=== PATIENT | female | born 1940 | race Caucasian/White ===

== ENCOUNTER → 2016-03-24 | Outpatient (CLI) | payer BC ==
[~2016-03-24] MED LIST: ALBUAER2 INH; ANAS1TAB19 PO; ASPEC81 PO; ATOR10TA88 PO; AZPOPS OPR; BUPR200T2 PO; CHOL100027 PO; FERR325T PO; FLUT27.5 NAE; INSDGIPEN SC; LEVO25TA5 PO; PANT40TA PO; PRDUNK PO; SYMIN/8045 INH; ZAFI1TAB10 PO
[2016-03-24 13:30] LABS: URINE APPEARANCE CLEAR (CLEAR); URINE BILIRUBIN NEG (NEG); URINE COLOR DK YELLOW; URINE EPITHELIAL CELL AUTO >30 /lpf (0-5); URINE NITRITE NEG (NEG); URINE PH 5.5 (4.5-7.5); URINE SPECIFIC GRAVITY 1.018 (1.000-1.030); UROBILINOGEN NEG (NEG)
[2016-03-24 13:34] LABS: MANUAL MICROSCOPIC REQUIRED? NO; REVIEW REQ? YES
[2016-03-24 13:49] LABS: FERRITIN 39.8 ng/ml (8.0-388.0)
[2016-03-24 13:54] LABS: URINE PATH CASTS 0-3 GRANULAR CASTS /lpf (0)
[2016-03-24 14:27] LABS: ESTIMATED AVERAGE GLUCOSE 157 mg/dl; HA1C FLAG Normal (Normal)
[2016-03-24 14:29] LABS: URINE PROTIEN/CREAT RATIO 1.3 (0-0.2); URINE TOTAL PROTEIN 205.8 mg/dl (0-11.9)
[2016-03-25 09:35] LABS: C-REACTIVE PROT HIGHSEN 9.6 MG/L
--- NOTE | 2016-04-01 07:51 | CODING QUERY MEDICAL NECESSITY ---
SUPPORTING DIAGNOSIS NEEDED Dr. Tovar, A supporting diagnosis is required for the test/procedure performed on this patient in order for us to be reimbursed by the patient's insurance. Please provide a supporting diagnosis for the following test/procedure listed below next to the test name along with your signature. *If there is no additional diagnosis for this patient that would support the following test/procedure please document that below next to the test/procedure. Test(s)/Procedure(s) that require a supporting diagnosis: * ([id number]) C-REACTIVE PROTEIN DIAGNOSIS: DATE OF SERVICE: 03/24/16 Provider Signature: Date: Thank you Abhinav Brown [facility] Information Management Once completed, please kindly fax back to [phone] For questions please call [phone]
== END | disposition home or self-care (01) ==
LOC: C.LABSPEC 09:29
PROVIDERS: ATTEND Internal Medicine Nephrology
DX: R06.09 Other forms of dyspnea (principal); R53.83 Other fatigue; R70.0 Elevated erythrocyte sedimentation rate; R79.82 Elevated C-reactive protein (CRP); N18.4 Chronic kidney disease, stage 4 (severe); E11.9 Type 2 diabetes mellitus without complications; I10 Essential (primary) hypertension; E87.1 Hypo-osmolality and hyponatremia; R80.9 Proteinuria, unspecified; N28.81 Hypertrophy of kidney; Z12.31 Encounter for screening mammogram for malignant neoplasm of breast; Z85.3 Personal history of malignant neoplasm of breast; M06.9 Rheumatoid arthritis, unspecified

== ENCOUNTER → 2016-03-24 | Outpatient (CLI) | payer BC ==
--- NOTE | 2016-03-24 16:17 | MAMMOGRAPHY REPORT ---
BILATERAL DIGITAL DIAGNOSTIC MAMMOGRAM TOMOSYNTHESIS WITH CAD: 03/24/2016 CLINICAL HISTORY: Asymptomatic. Personal history of breast cancer. TECHNIQUE: Bilateral breast tomosynthesis in addition to standard 2D mammography was performed. Spo t magnification views of the left lumpectomy site were also obtained. Current study was also evalua alberto with a Computer Aided Detection (CAD) system. COMPARISON: Comparison is made to exams dated: 03/20/2015 mammogram, 02/28/2014 mammogram, 08/25/2013 ultrasound, 02/17/2013 mammogram, and 10/14/2011 ultrasound biopsy - [facility]. BREAST COMPOSITION: There are scattered areas of fibroglandular density in both breasts. FINDINGS: The hub of a Mediport catheter projects over the far superior and posterior right breast o n the MLO view. A stable ribbon shaped metallic biopsy marker in the upper outer anterior right juan ast. No new suspicious mass, architectural distortion or cluster of microcalcifications is seen wit hin the right breast. There is expected architectural distortion, surgical clips and density in the 12:00 to 1:00 left juan ast, at the site of prior lumpectomy. There are increasing coarse dystrophic calcifications in the area of distortion and density, compatible with dystrophic calcification. There are also vascular c alcifications within the left breast. No new suspicious mass, unexpected architectural distortion o r cluster of new suspicious microcalcifications are identified within the left breast. IMPRESSION: ACR BI-RADS CATEGORY 2: BENIGN There is no mammographic evidence of malignancy. Bilateral mammography is recommended in one year, and would recommend remaining a diagnostic patient for possible additional spot magnification views of the lumpectomy bed, given the number of microcalcifications in that area. The patient has been v erbally notified of the results. Approximately 10% of breast cancers are not detected with mammography. A negative mammographic repor t should not delay biopsy if a clinically suggestive mass is present. Shell Beebe M.D. ay/:03/24/2016 13:24:46 Multi Skilled Operator: Adry London, [facility] letter sent: Normal 1/2 BI-RADS Code: ACR BI-RADS Category 2: Benign
== END | disposition home or self-care (01) ==
LOC: C.MAMM 10:15
PROVIDERS: ATTEND Internal Medicine Hematology & Oncology
DX: Z12.31 Encounter for screening mammogram for malignant neoplasm of breast (principal); Z85.3 Personal history of malignant neoplasm of breast

== ENCOUNTER → 2016-10-09 | Outpatient (CLI) | payer BC ==
[2016-10-09 13:09] LABS: HEMATOCRIT 35.6 % (37-47); MEAN CORPUSCULAR HEMOGLOBIN 31.3 pg (25-34); MEAN CORPUSCULAR HGB CONC 32.6 g/dl (32-36); MEAN PLATELET VOLUME 9.9 fL (7.4-10.4); PLATELET COUNT 223 K/uL (130-400); RED BLOOD COUNT 3.71 M/uL (4.2-5.4); URINE APPEARANCE CLEAR (CLEAR); URINE BILIRUBIN NEG (NEG); URINE COLOR DK YELLOW; URINE EPITHELIAL CELL AUTO >30 /lpf (0-5); URINE NITRITE NEG (NEG); URINE PH 5.5 (4.5-7.5); URINE SPECIFIC GRAVITY 1.022 (1.000-1.030); UROBILINOGEN NEG (NEG); WHITE BLOOD COUNT 7.35 K/uL (4.8-10.8)
[2016-10-09 13:13] LABS: MANUAL MICROSCOPIC REQUIRED? NO; REVIEW REQ? YES
[2016-10-09 13:45] LABS: BLOOD UREA NITROGEN 38 mg/dl (7-18); BUN/CREATININE RATIO 15.8 (10-20); CALCIUM 8.9 mg/dl (8.5-10.1); CARBON DIOXIDE 21 mmol/L (21-32); CHLORIDE 107 mmol/L (98-107); GLUCOSE 206 mg/dl (70-99); POTASSIUM 4.7 mmol/L (3.5-5.1); SODIUM 138 mmol/L (136-145)
[2016-10-09 13:46] LABS: PHOSPHORUS 3.6 mg/dl (2.5-4.9)
[2016-10-09 13:56] LABS: URINE PROTIEN/CREAT RATIO 1.5 (0-0.2); URINE TOTAL PROTEIN 261.4 mg/dl (0-11.9)
[2016-10-09 14:13] LABS: URINE PATH CASTS 1-5 GRANULAR CASTS /lpf (0)
== END | disposition home or self-care (01) ==
LOC: C.LAB 16:32
PROVIDERS: ATTEND Internal Medicine Nephrology
DX: E11.9 Type 2 diabetes mellitus without complications (principal); I10 Essential (primary) hypertension; N18.4 Chronic kidney disease, stage 4 (severe); E87.1 Hypo-osmolality and hyponatremia; N25.81 Secondary hyperparathyroidism of renal origin; R80.9 Proteinuria, unspecified

== ENCOUNTER → 2016-12-28 | Outpatient (CLI) | payer BC ==
[~2016-12-28] MED LIST changes: +ATOR10TA82 PO; -ATOR10TA88 PO; +FERR1TAB62 PO; -FERR325T PO
== END | disposition home or self-care (01) ==
LOC: C.RDSM 11:30
PROVIDERS: ATTEND Physical Medicine & Rehabilitation Sports Medicine
DX: M17.11 Unilateral primary osteoarthritis, right knee (principal); M25.551 Pain in right hip; M54.6 Pain in thoracic spine

== ENCOUNTER → 2017-04-01 | Outpatient (CLI) | payer BC ==
--- NOTE | 2017-04-05 07:40 | MAMMOGRAPHY REPORT ---
BILATERAL DIGITAL SCREENING MAMMOGRAM TOMOSYNTHESIS WITH CAD: 04/01/2017 CLINICAL HISTORY: Asymptomatic. Personal history of breast cancer. TECHNIQUE: Breast tomosynthesis in addition to standard 2D mammography was performed. Current study was also evaluated with a Computer Aided Detection (CAD) system. COMPARISON: Comparison is made to exams dated: 03/24/2016 mammogram, 03/20/2015 mammogram, 09/05/2014 ma mmogram, 02/28/2014 mammogram, 08/25/2013 ultrasound, and 08/25/2013 mammogram - [facility]. BREAST COMPOSITION: There are scattered areas of fibroglandular density in both breasts. FINDINGS: No suspicious masses, calcifications, or areas of architectural distortion are noted in ei ther breast. There has been no significant interval change compared to prior exams. There are stable postoperative changes in the left upper outer quadrant from prior lumpectomy, including stable archi tectural distortion, density, and surgical clip at the lumpectomy bed. Coarse benign dystrophic calc ifications are again seen at the lumpectomy bed. Diffuse left breast skin thickening is not signific antly changed. A biopsy marker clip is again noted within the right upper outer quadrant. IMPRESSION: ACR BI-RADS CATEGORY 2: BENIGN There is no mammographic evidence of malignancy. A 1 year screening mammogram is recommended. The pa tient will receive written notification of the results. Approximately 10% of breast cancers are not detected with mammography. A negative mammographic report should not delay biopsy if a clinically suggestive mass is present. Angelia Belcher M.D. /:04/01/2017 15:41:11 Messenger Copy: Adry London, [facility] letter sent: Normal 1/2 BI-RADS Code: ACR BI-RADS Category 2: Benign
== END | disposition home or self-care (01) ==
LOC: C.MAMM 13:18
PROVIDERS: ATTEND Internal Medicine Hematology & Oncology
DX: Z12.31 Encounter for screening mammogram for malignant neoplasm of breast (principal)

== ENCOUNTER → 2017-04-20 | Outpatient (CLI) | payer BC ==
[2017-04-20 17:32] LABS: HEMOGLOBIN 12.2 g/dL (12.0-16.0); MEAN CELL VOLUME 96.1 fL (80-100); MEAN CORPUSCULAR HEMOGLOBIN 31.7 pg (25-34); PLATELET COUNT 250 K/uL (130-400); RED CELL DISTRIBUTION WIDTH CV 12.4 % (11.5-14.5); RED CELL DISTRIBUTION WIDTH SD 43.5 fL (36.4-46.3); WHITE BLOOD COUNT 7.95 K/uL (4.8-10.8)
[2017-04-20 17:43] LABS: ALBUMIN 3.4 gm/dl (3.4-5.0); BLOOD UREA NITROGEN 50 mg/dl (7-18); CALCIUM 9.5 mg/dl (8.5-10.1); CARBON DIOXIDE 23 mmol/L (21-32); GLUCOSE 132 mg/dl (70-99); POTASSIUM 4.9 mmol/L (3.5-5.1); SODIUM 134 mmol/L (136-145)
[2017-04-20 17:44] LABS: PHOSPHORUS 3.9 mg/dl (2.5-4.9)
== END | disposition home or self-care (01) ==
LOC: C.LABBFT 13:02
PROVIDERS: ATTEND Internal Medicine Nephrology
DX: I12.9 Hypertensive chronic kidney disease with stage 1 through stage 4 chronic kidney disease, or unspecified chronic kidney disease (principal); N18.4 Chronic kidney disease, stage 4 (severe); N25.81 Secondary hyperparathyroidism of renal origin; R80.9 Proteinuria, unspecified

== ENCOUNTER 2017-06-06 08:36 | Emergency (ER) | payer BC ==
[~2017-06-06] VITALS: Ht 165.1 cm; Wt 91.9 kg
[2017-06-06 08:49] VITALS: TEMP 36.4; Ht 165.1 cm; Wt 91.9 kg
[2017-06-06] MEDS ORDERED: HYDR-4313 PO (09:11)
[2017-06-06] MEDS ORDERED: MELO7.5T5 PO (09:11)
--- NOTE | 2017-06-06 10:01 | EMERGENCY ROOM VISIT NOTE ---
ED Visit Note First contact with patient: 08:59 The patient was seen and examined with Francis Mishra PA-C. I agree with the history, physical and findings. Please see the note for disposition and details.
[2017-06-06] MEDS ORDERED: OXYC-57 PO (10:07)
[2017-06-06 10:35] VITALS: BP 180/75; PULSE 80; O2SAT 100
[2017-06-18] MEDS ORDERED: PRD/1 PO (11:50)
[2017-06-18] MEDS ORDERED: CALC500C70 PO (11:50)
[2017-06-18] MEDS ORDERED: BRIN1SUS OPR (11:50)
[2017-06-18] MEDS ORDERED: BRIM0.15 OP (11:50)
[2017-06-18] MEDS ORDERED: CHOLTAB11 PO (11:50)
[2017-06-18] MEDS ORDERED: MULT-506 PO (11:50)
[2017-06-18] MEDS ORDERED: VNTHFA/IN INH (11:50)
[2017-06-18] MEDS ORDERED: WLL75 PO (11:50)
[2017-06-18] MEDS ORDERED: ASPI81TA28 PO (11:50)
--- NOTE | 2017-06-29 17:33 | EMERGENCY ROOM VISIT NOTE ---
History First contact with patient: 08:59 Chief Complaint: LEG PAIN,LEG INJURY Stated Complaint: PAIN IN LEFT LEG History of Present Illness The patient is a 77 year old white female who presents to the Emergency Room with complaints of left leg pain that is radiating from her back. Symptoms started Wednesday night. She denies any specific injury. She was seen by her PCP and had an ultrasound obtained to rule out DVT. This was negative. She does have a history of DVT in the same leg. She denies any current swelling. She notes she did have some difficulty getting her shoe on this morning. She does not take any blood thinners. She does have a history of chronic low back pain. She has received cortisone injections in her back previously. She denies lifting anything heavy or moving it in usual fashion. No difficulty with bowel or bladder control. No abdominal pain. No symptoms in the right leg. No true numbness. She does have some tingling along with her pain. Review of Systems REVIEW OF SYSTEM: HEENT: No dizziness, visual problems, hearing loss, or tinnitus. There is no difficulty swallowing and no oral lesions are present. LYMPH: No adenopathy. PULMONARY: No cough, shortness of breath, sputum production or hemoptysis. CARDIOVASCULAR: No chest pain, palpitations, shortness of breath or peripheral edema. GASTROINTESTINAL: No diarrhea, constipation, nausea, vomiting, or abdominal pain. GENITOURINARY: No dysuria, frequency, urgency or nocturia. NEUROLOGIC: No weakness, muscle tenderness, epilepsy or history of neurological problems. MUSCULOSKELETAL: No history of joint tenderness/swelling. Positive history of arthritis and arthralgias. SKIN: No rashes or lesions. PSYCHIATRIC: No history of depression or mental illness. ENDOCRINE: No history of thyroid disorders, or abnormal hair growth. Past Medical/Surgical History Medical Problems: (1) Acute osteomyelitis (2) ACUTE RENAL FAILURE, UNSPECIFIED (3) ATTEN TO ILEOSTOMY (4) CHRONIC KIDNEY DISEASE, STAGE IV (SEVERE) (5) Deep venous thrombosis (6) DIAB FELISHA WO COMPL, TYPE II OR UNSPEC TYPE, NOT UNCNTRLD (7) FAT NECROSIS OF BREAST (8) MALIGN NEOPL BREAST NOS (9) METHICILLIN RESISTANT STAPHYLOCOCCUS AUREUS ELSEWHERE/NOS (10) PNEUMONIA, ORGANISM NOS (11) Protein S deficiency (12) PSEUDOMONAS INFECT NOS Family History Cancer Diabetes mellitus Gallbladder disease Heart disease Hypertension Social History Smoking Status: Former Smoker Smokeless Tobacco Use: No Alcohol Use: none Drug Use: none Marital Status: Housing Status: lives with significant other Occupation Status: retired Current/Historical Medications Scheduled Anastrozole (Arimidex), 1 MG PO QPM Aspirin (Aspirin Ec), 81 MG PO QPM Brimonidine Tartrate Oph (Alphagan P Oph), 1 DROP OP BID Brinzolamide Oph (Azopt Oph), 1 DROP OPR BID Bupropion HCl (Bupropion HCl), 150 MG PO TID Calcium/Vitamin D (Os-Conrad 500 Plus D), 1 TAB PO QPM Cholecalciferol (D-5000), 5,000 UNITS PO QAM Ferrous Sulfate (Ferrous Sulfate), 325 MG PO HS Insulin Glargine (Lantus Solostar), 8 UNIT SC HS Multivitamin (Multivitamin), 1 TAB PO DAILY Pantoprazole (Protonix), 40 MG PO QAM Prednisone (Prednisone), 4 MG PO QAM Zafirlukast (Accolate), 20 MG PO BID Scheduled PRN Albuterol Hfa (Ventolin Hfa), 2-4 PUFFS INH Q6H PRN for Pain Budesonide/Formoterol Fumarate (Symbicort 80/4.5 Inhaler), 2 PUFFS INH BID PRN for Shortness of Breath Allergies Coded Allergies: BEE STING (Verified Allergy, Severe, ANAPHYLAXIS, 06/18/17) Cefaclor (Verified Allergy, Severe, stiff and sore muscles-PT DENIES, 06/18) Lisinopril (Verified Allergy, Severe, tongue swelling, 06/18/17) Sulfamethoxazole w/Trimethoprim (Verified Allergy, Severe, dizzy, dysequilibrium, 06/18/17) Diltiazem (Verified Allergy, Intermediate, rash, 06/18/17) Penicillins (Verified Allergy, Mild, RASH, 06/18/17) RASH Tetracycline (Verified Allergy, Mild, UNK-PT DENIES, 06/18/17) Amoxicillin (Verified Allergy, Unknown, RASH, 06/18/17) Baclofen (Verified Allergy, Unknown, ?, 06/18/17) Cefuroxime (Verified Allergy, Unknown, TAST, 06/18/17) Clavulanic Acid (Verified Allergy, Unknown, ITCHING, 06/18/17) Levofloxacin (Verified Allergy, Unknown, NAUSEA, DIZZINESS, 06/18/17) Alendronate (Unverified Adverse Reaction, Intermediate, FELT SICK, 06/18/17 ) Ciprofloxacin (Verified Adverse Reaction, Intermediate, LEGS ARMS STIFF, PAINFUL, 06/18/17) Doxycycline (Verified Adverse Reaction, Intermediate, nausea and vomiting , 06/18/17) Metformin (Verified Adverse Reaction, Intermediate, CAUSED BACK PAIN AND INC. LACTIC ACID LEVELS, 06/18/17) Tramadol (Unverified Adverse Reaction, Intermediate, DIZZINESS, 06/18/17) Adhesives (Verified Adverse Reaction, Mild, redness, 06/18/17) Mercaptopurine (Verified Adverse Reaction, Mild, MADE HER VERY ILL, ) Olmesartan (Verified Adverse Reaction, Mild, HEADACHE, 06/18/17) Sulfa Drugs (Verified Adverse Reaction, Mild, CAUSED DIZZINESS, 06/18/17) Sulfamethoxazole (Verified Adverse Reaction, Mild, CAUSED DIZZINESS, ) Trimethoprim (Verified Adverse Reaction, Mild, BACTRIM CAUSED DIZZINESS, ) Aspirin (Verified Adverse Reaction, Unknown, CAUSES BRUISING, 06/18/17) Physical Exam Vital Signs Date Time Temp Pulse Resp B/P (MAP) Pulse Ox O2 Delivery O2 Flow Rate FiO2 06/06/17 10:35 80 16 180/75 100 06/06/17 08:49 36.4 97 18 186/83 94 Room Air Physical Exam General: Well-developed, well-nourished, obese elderly white female, in obvious discomfort. No acute distress. Sitting on the bed. Alert and oriented. Skin: Warm and dry with fair turgor. No rashes or lesions. No ecchymosis or erythema. The patient is not diaphoretic. No abrasions. Abdomen: Abdomen was inspected, auscultated, and palpated. Bowel sounds present x 4. Soft, nontender to palpation. No hepato-splenomegaly. No masses noted. No CVA tenderness. Musculoskeletal: Low back evaluation reveals no obvious asymmetry or deformity. She has focal discomfort with palpation over the left SI joint. This extends into her left buttock. There is also pain with palpation over the L5-S1 disc space. No pain with palpation over the other vertebral bodies or disc spaces. No pain over the right SI joint or right buttock. She does have radicular pain with pressure over the sciatic notch. No pain over the initial tuberosity. No pain with palpation over her thigh or calf. Intact motor function to the hip, knee, and ankle. Motion does cause pain over her SI joint. Strength is 5/5 for resisted motion of the hip, knee, and ankle. Ambulatory with an antalgic gait. Neurologic: Gross sensation is intact across both lower extremities by soft touch. DTRs are 1+ on the left and right. Peripheral pulses are 2+. Medical Decision & Procedures ED Course Patient and her were educated regarding today's findings. Conservative care measures were discussed. She will follow-up with Dr. Rojas to discuss further injection therapy in her lumbar spine and SI joint. She will contact her PCP for a physical therapy referral. She already has Percocet at home. She may use 1-2 tablets every 6 hours as needed for pain control. Driving precautions were given. She also has Ultram at home. She may substitute this for the Percocet every 6 hours to see if it improves her discomfort. Gentle stretching daily. Ice to the low back may also improve her discomfort. Return to the ED for any acute worsening symptoms or loss of bowel or bladder control. Patient was seen in conjunction with Dr. Melendez, who also evaluated the patient and concurred with today's diagnosis and treatment plan. Medical Decision Possibility of nerve root impingement, spinal stenosis, cauda equina syndrome, disc pathology, vertebral fracture, SI joint dysfunction, and sciatica were considered, among others. [place] Drug Monitoring Program Search Results: no issues identified Impression Primary Impression: Left lumbar radiculopathy Additional Impression: Leg pain, left Departure Information Dispostion Home / Self-Care Condition GOOD Referrals Meliton Rojas M.D. Forms HOME CARE DOCUMENTATION FORM, IMPORTANT VISIT INFORMATION Patient Instructions My [employer] Additional Instructions Percocet 1-2 tablets every 6 hours as needed for severe pain-no driving You may also substitute tramadol 1-2 tablets every 6 hours as needed, to see if this improves your pain control Follow-up with your PCP this week for a physical therapy referral Consider contacting Dr. Rojas to discuss low back imaging and treatment Return to the ED for any acute worsening of symptoms or loss of bladder control Problem Qualifiers
== END 2017-06-06 10:35 | disposition home or self-care (01) ==
LOC: C.EDB 08:38
DX: M79.605 Pain in left leg (principal); M54.16 Radiculopathy, lumbar region; E11.22 Type 2 diabetes mellitus with diabetic chronic kidney disease; N18.4 Chronic kidney disease, stage 4 (severe); Z86.718 Personal history of other venous thrombosis and embolism; Z85.3 Personal history of malignant neoplasm of breast; Z87.891 Personal history of nicotine dependence; Z79.899 Other long term (current) drug therapy; Z88.6 Allergy status to analgesic agent; Z88.8 Allergy status to other drugs, medicaments and biological substances; Z91.040 Latex allergy status; Z83.3 Family history of diabetes mellitus; Z82.49 Family history of ischemic heart disease and other diseases of the circulatory system

== ENCOUNTER → 2017-07-05 | Day surgery (SDC) | payer BC ==
[2017-06-18 11:51] VITALS: Ht 165.1 cm; Wt 90.9 kg
[~2017-07-05] VITALS: Ht 165.1 cm; Wt 90.9 kg
[~2017-07-05] MED LIST changes: -ALBUAER2 INH; -ASPEC81 PO; +ASPI81TA28 PO; -ATOR10TA82 PO; -AZPOPS OPR; +BRIM0.15 OP; +BRIN1SUS OPR; -BUPR200T2 PO; +CALC500C70 PO; -CHOL100027 PO; +CHOLTAB11 PO; -FLUT27.5 NAE; +IOPAMIDOL INJ 61% 15 ML VIAL ONE; -LEVO25TA5 PO; +LIDOCAINE HCL 1% MPF 5 ML VIAL ONE; +MULT-506 PO; +PRD/1 PO; -PRDUNK PO; +SODIUM CHLORIDE 0.9% INJ 10 ML VIAL ONE; +VNTHFA/IN INH; +WLL75 PO
--- NOTE | 2017-07-05 14:35 | History & Physical Bridge - SC ---
H&P Re-Evaluation Bridge Note: I have examined the patient, reviewed the History & Physical and in the interval since the performance of the History & Physical I have noted the following changes of clinical significance: No changes noted
--- NOTE | 2017-07-05 15:02 | [facility] Post Operative Brief Note ---
Immediate Operative Summary Operative Date July 05, 2017. Pre-Operative Diagnosis LEFT L4 RADICULOPATHY Post-Operative Diagnosis LEFT L4 RADICULOPATHY Procedure(s) Performed LUMBAR EPIDURAL STEROID INJECTION Surgeon DR. Ronit OROURKE Field Spec Surgeon(s) None Estimated Blood Loss NONE Findings Consistent with Post-Op Diagnosis Specimens NA Anesthesia Type Local Complication(s) none Disposition Disposition:
--- NOTE | 2017-07-05 15:03 | Discharge Instructions ---
Discharge Instructions Date of Service July 05, 2017. Visit Reason for Visit: Lumbar Radiculopathy, Lumbar Spinal Stenosis Discharge Discharge Diagnosis / Problem: left leg pain Discharge Goals Goal(s): Decrease discomfort, Improve function Medications Stopped Medications Name(s): ASA stopped 3 days ago. Activity Recommendations Activity Limitations: resume your previous activity Anesthesia . Post Anesthesia Instructions: If you have had General Anesthesia or IV Sedation: * Do not drive today. * Resume driving when surgeon permits. * Do not make important decisions or sign legal documents today. * Call surgeon for: 1. Temperature elevations greater than 101 degrees F. 2. Uncontrollable pain. 3. Excessive bleeding. 4. Persistent nausea and vomiting. 5. Medication intolerance (nausea, vomiting or rash). * For nausea and vomiting use only clear liquids such as: tea, soda, bouillon until nausea subsides, then gradually increase diet as tolerated. * If you have any concerns or questions, call your surgeon's office. If physician is unavailable and it is an emergency, call 911 or go to the nearest emergency room. . Diet Recommendations Recommended Home Diet: resume previous diet Procedures Procedures Performed: LUMBAR EPIDURAL STEROID INJECTION Pending Studies Studies pending at discharge: no Medical Emergencies . Who to Call and When: Medical Emergencies: If at any time you feel your situation is an emergency, please call 911 immediately. . Non-Emergent Contact Non-Emergency issues call your: Specialist . . "Provider Documentation" section prepared by Meliton Rojas. .
[2017-07-05 15:05] VITALS: TEMP 37
[2017-07-05 15:30] VITALS: BP 148/82; PULSE 90; O2SAT 97
--- NOTE | 2017-07-05 15:31 | OPERATIVE REPORT ---
DATE OF OPERATION: 07/05/2017 PREOPERATIVE DIAGNOSIS: Lumbar spinal stenosis with a left L4 radiculopathy. POSTOPERATIVE DIAGNOSIS: Lumbar spinal stenosis with a left L4 radiculopathy. PROCEDURE: Left paramedian L5-S1 intralaminar epidural steroid injection under fluoroscopic guidance. INDICATIONS: The patient is a 77-year-old white female who has significant pain radiating down the leg from the back into the L4 dermatome on her left leg. She has not responded to medications and rest. She presents today for an epidural to provide her with some relief. PHYSICAL EXAMINATION: GENERAL: Pleasant female seated comfortably. MUSCULOSKELETAL: There is a positive straight leg raise of her left lower extremity. She has some paresthesias in the proximal L4 region of the thigh, inability to lift up her leg because of pain. CONSENT: Verbal and written consent was obtained from the patient. Risks and benefits were reviewed. Risks include but are not limited to epidural abscess, epidural hematoma, allergic reaction, dural puncture. The patient wishes to proceed. DESCRIPTION OF PROCEDURE: The patient was taken back in the special procedures room of [facility] where she was maintained in a prone position. Backside was cleansed with Betadine x3 and a dry sterile dressing was applied. Fluoroscope was used to identify the left L4-L5 intralaminar space. Overlying skin was anesthetized with 4 mL of lidocaine 1% with a 25-gauge 1.5-inch needle and 22-gauge 4.25-inch Tuohy needle was then directed down towards the intralaminar space. It was very tight and was unable to be advanced to the epidural space. Decision was made then to anesthetize at the left L5-S1 region with an additional 3 mL of lidocaine 1% with a 25-gauge 1.5-inch needle and 22-gauge 4.25 inch Tuohy needle was then directed down towards the intralaminar space at 5-1, advanced under lateral fluoroscopic guidance with a loss of resistance noted at a depth of 10 cm. Isovue-300 contrast 1 mL was injected, which demonstrated epidural uptake pattern which was confirmed with AP and lateral views. She then underwent injection after negative aspiration of 40 mg of Depo-Medrol and 4 mL of preservative free sodium chloride. Injection was well tolerated. DISPOSITION: 1. The patient is taken out into the discharge recovery area where she will be discharged home once discharge criteria have been met. 2. Follow up in the [facility] office in four weeks' time. I attest to the content of the Intraoperative Record and any orders documented therein. Any exception s are noted below.
== END | disposition home or self-care (01) ==
LOC: X.SURG 13:46
PROVIDERS: ATTEND Physical Medicine & Rehabilitation
DX: M54.16 Radiculopathy, lumbar region (principal); M48.061 Spinal stenosis, lumbar region without neurogenic claudication; Z79.899 Other long term (current) drug therapy

== ENCOUNTER → 2017-07-12 | Outpatient (CLI) | payer BC ==
[~2017-07-12] MED LIST changes: -IOPAMIDOL INJ 61% 15 ML VIAL ONE; -LIDOCAINE HCL 1% MPF 5 ML VIAL ONE; -SODIUM CHLORIDE 0.9% INJ 10 ML VIAL ONE
[2017-07-12 17:11] LABS: BASO % 0.3 %; BASO ABS # 0.03 K/uL (0-0.2); EOS % 1.1 %; HEMATOCRIT 38.3 % (37-47); HEMOGLOBIN 12.6 g/dL (12.0-16.0); IG# 0.05 K/uL (0.00-0.02); LYMPH % 13.7 %; LYMPH ABS # 1.26 K/uL (1.2-3.4); MEAN CELL VOLUME 95.5 fL (80-100); MEAN CORPUSCULAR HEMOGLOBIN 31.4 pg (25-34); MEAN CORPUSCULAR HGB CONC 32.9 g/dl (32-36); MEAN PLATELET VOLUME 10.1 fL (7.4-10.4); MONO % 4.9 %; MONO ABS # 0.45 K/uL (0.11-0.59); NEUT % 79.5 %; PLATELET COUNT 248 K/uL (130-400); RED CELL DISTRIBUTION WIDTH CV 12.7 % (11.5-14.5); RED CELL DISTRIBUTION WIDTH SD 43.9 fL (36.4-46.3); WHITE BLOOD COUNT 9.19 K/uL (4.8-10.8)
[2017-07-12 17:41] LABS: BLOOD UREA NITROGEN 44 mg/dl (7-18); CARBON DIOXIDE 23 mmol/L (21-32); CREATININE 2.53 mg/dl (0.60-1.20); GLUCOSE 210 mg/dl (70-99); POTASSIUM 4.7 mmol/L (3.5-5.1); SODIUM 137 mmol/L (136-145)
[2017-07-13 06:31] LABS: HEMOGLOBIN A1C 6.8 % (4.5-5.6)
== END | disposition home or self-care (01) ==
LOC: C.LABBFT 13:47
PROVIDERS: ATTEND Internal Medicine Nephrology
DX: E11.9 Type 2 diabetes mellitus without complications (principal); E03.9 Hypothyroidism, unspecified; D50.9 Iron deficiency anemia, unspecified; I12.9 Hypertensive chronic kidney disease with stage 1 through stage 4 chronic kidney disease, or unspecified chronic kidney disease; N18.4 Chronic kidney disease, stage 4 (severe); N25.81 Secondary hyperparathyroidism of renal origin; R80.9 Proteinuria, unspecified

== ENCOUNTER → 2017-10-13 | Outpatient (CLI) | payer BC ==
[~2017-10-13] MED LIST changes: -ANAS1TAB19 PO; +ANAS1TAB59 PO; -INSDGIPEN SC; +INSDGIPEN SQ; +LPR25 PO; +LPT40 PO; +PLV75 PO
[2017-10-13 11:50] LABS: HEMATOCRIT 30.4 % (37-47); HEMOGLOBIN 9.8 g/dL (12.0-16.0); MEAN CELL VOLUME 96.2 fL (80-100); MEAN CORPUSCULAR HGB CONC 32.2 g/dl (32-36); PLATELET COUNT 233 K/uL (130-400); RED CELL DISTRIBUTION WIDTH CV 12.5 % (11.5-14.5); RED CELL DISTRIBUTION WIDTH SD 43.9 fL (36.4-46.3)
[2017-10-13 11:54] LABS: BLOOD UREA NITROGEN 32 mg/dl (7-18); CARBON DIOXIDE 23 mmol/L (21-32); CREATININE 2.69 mg/dl (0.60-1.20); GLUCOSE 138 mg/dl (70-99); SODIUM 134 mmol/L (136-145)
== END | disposition home or self-care (01) ==
LOC: C.LABSPEC 11:08
PROVIDERS: ATTEND Nurse Practitioner Family
DX: I63.9 Cerebral infarction, unspecified (principal); R53.1 Weakness; R26.2 Difficulty in walking, not elsewhere classified; J45.909 Unspecified asthma, uncomplicated; M06.89 Other specified rheumatoid arthritis, multiple sites

== ENCOUNTER 2018-06-22 16:53 | Inpatient (IN) ==
[2018-06-22] MEDS ORDERED: SODIUM CHLORIDE 0.9% 1000ML 250 ML IV ONE (17:41)
[2018-06-22] MEDS ORDERED: ACETAMINOPHEN 1,000 MG/100 ML VIAL IV STA (17:41)
[2018-06-22 18:31] LABS: Hematocrit (blood only) 27.6 % (37-47); Hemoglobin 9.1 g/dL (12.0-16.0); Mean Corpuscular Volume 95.8 fL (80-100); Mean Platelet Volume 9.9 fL (7.4-10.4); Platelet Count 177 K/uL (130-400); RDW Coefficient of Variation 13.4 % (11.5-14.5); Red Blood Count 2.88 M/uL (4.2-5.4); White Blood Count 12.86 K/uL (4.8-10.8)
--- NOTE | 2018-06-22 18:49 | CT Scan Report ---
HEAD CT NONCONTRAST CT DOSE: HISTORY: pain fall TECHNIQUE: Multiaxial CT images of the head were performed without the use of intravenous contrast. A utomated exposure control was utilized for this study. A dose lowering technique was utilized adheri ng to the principles of ALARA. Comparison: Head CT 08/28/2017. Findings: The paranasal sinuses and mastoid air cells are clear. The calvarium and skull base are int act. There is no mass, hematoma, midline shift, acute infarct. White matter hypodensity is nonspecifi c but suggestive of microvascular ischemic change. The ventricles and sulci demonstrate mild age-rela alberto involutional changes. Impression: No significant change compared to the prior study. No acute intracranial abnormality. Electronically signed by: Abel Broussard M.D. 06/22/2018 6:47 PM
[2018-06-22 18:51] LABS: Albumin Level 2.6 gm/dl (3.4-5.0); BUN Creatinine Ratio 19.4 (10-20); Calcium 8.5 mg/dl (8.5-10.1); Creatinine Clr Calc Pharmacy 13.8 ml/min; Est GFR (African American) 17.7; Est GFR (Non-African American) 15.3; Potassium 4.6 mmol/L (3.5-5.1)
--- NOTE | 2018-06-22 18:53 | CT Scan Report ---
CERVICAL SPINE CT CT DOSE: HISTORY: Neck pain fall TECHNIQUE: Multiaxial CT images of the cervical spine were performed and reformatted in the sagittal and coronal plane without the use of contrast. A dose lowering technique was utilized adhering to th e principles of ALARA. COMPARISON: None. FINDINGS: No fractures. No subluxation. Prevertebral soft tissues and the C1-C2 interval are intact. No pneumothorax. IMPRESSION: No fractures within the cervical spine. Electronically signed by: Abel Broussard M.D. 06/22/2018 6:52 PM
[2018-06-22 18:54] LABS: Albumin Globulin Ratio 0.9 (0.9-2); Bilirubin,Total 0.2 mg/dl (0.2-1); Total Protein 5.6 gm/dl (6.4-8.2)
[2018-06-22 18:58] LABS: Basophils # (auto) 0.03 K/uL (0-0.2); Basophils % (auto) 0.2 %; Eosinophils # (auto) 0.11 K/uL (0-0.5); Eosinophils % (auto) 0.9 %; Immature Granulocytes # (auto) 0.04 K/uL (0.00-0.02); Immature Granulocytes % (auto) 0.3 %; Lymphocytes # (auto) 1.35 K/uL (1.2-3.4); Lymphocytes % (auto) 10.5 %; Monocytes # (auto) 0.87 K/uL (0.11-0.59); Monocytes % (auto) 6.8 %; Neutrophils # (auto) 10.46 K/uL (1.4-6.5); Neutrophils % (auto) 81.3 %
--- NOTE | 2018-06-22 19:10 | CT Scan Report ---
CT chest wo con, CT abd pelvis wo con CT DOSE: 2937.76 mGy.cm HISTORY: left back pain ecchymosis, fall TECHNIQUE: Multiaxial CT images of the chest, abdomen, pelvis were performed without contrast. A dos e lowering technique was utilized adhering to the principles of ALARA. COMPARISON: Chest abdomen pelvis CT 09/17/2011. FINDINGS: Multinodular thyroid goiter is noted. Increase in size in a groundglass 8 mm nodule within the right lung apex on image 45. The central airways are patent. No pneumothorax. No pleural effusion s. Mild emphysema. Scattered subcentimeter calcified granulomas are noted. No change in the linear sc arlike densities within the upper lobes. There is a new irregular focal 2.7 cm nodule within the righ t middle lobe on image 119. This demonstrates a groundglass halo. No mediastinal or hilar lymphadenop athy. No mediastinal hematoma. Normal caliber thoracic aorta. The heart is normal in size. Postoperat dann changes within the left breast are again noted. Right jugular Port-A-Cath terminates at the SVC. No pericardial effusion. Normal esophagus. 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 The T2-T3 disc space is fused. There is a 12 x 6 cm intramuscular hematoma within the inferior aspect of the left latissimus dorsi along the left posterior chest/abdominal wall. There is also thickening and an and intramuscular hematoma within the left pectoralis major muscle. This measures approximately 8 x 3.5 cm. No acute fractures within the chest. Neck No acute fractures within the abdomen or pelvis. The unenhanced liver, gallbladder, spleen, and adren al glands are unremarkable. Mild bilateral perinephric edema which is likely chronic. No hydronephros is. No retroperitoneal lymphadenopathy. Normal caliber abdominal aorta with mild calcified plaque. Th e pancreas remains atrophic. No pelvic free fluid. Normal bladder. 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 Right lower quadrant ostomy site demonstrating a moderate peristomal hernia with multiple loops of small bowel. No evidence for bowel obstruction. This remains unchanged . IMPRESSION: 1. Left latissimus dorsi and left pectoralis major intramuscular hematomas as described above. 2. No acute fractures identified. 3. A 2.7 cm focal irregular right middle lobe nodule. This is highly suspicious for a primary broncho genic malignancy and pulmonary consultation recommended for bronchoscopy. 4. There is also an 8 mm groundglass nodule within the right lung apex which is slightly increased in size. This also likely represents a primary bronchogenic malignancy. 5. Additional chronic findings as described above. Electronically signed by: Abel Broussard M.D. 06/22/2018 7:08 PM
[2018-06-22 19:49] LABS: Prothrombin Time 9.8 Seconds (9.0-12.0)
--- NOTE | 2018-06-22 21:33 | Emergency Department Note ---
Entered by Kathie Red acting as a scribe for Tobin Smith MD History of Present Illness General Chief complaint: Fall Stated complaint: FALL, L SHOULDER, RIB & COLLARBONE PAIN Time Seen by Provider: 06/22/18 17:17 Source: patient Mode of arrival: ambulatory Limitations: no limitations History of Present Illness Provider complaint: Fall Onset (ago): hour(s) less than 1 Location: chest Severity: moderate Pain Consistency: + constant Maximum Pain Intensity: 3 Associated symptoms: + denies other symptoms; no chest pain, no fever/chills, no headaches, no nausea/vomiting and no shortness of breath Patient is an 78 year old female presenting to the ED with fall that occurred [employer]. Patient states that she was leaning into a cabinet when she fell backwards, hitting her shoulder and chest on a chair. She shares she may have hit the right side of her head off the chair, but she is unsure. She denies any LOC or headache. Patient notes she is having pain in the left rib cage and left maxilla. Pain in moderate in severity and constant since onset. She shares she does have chronic limited ROM in the right shoulder. She notes she does have an ostomy bag for previous osteomyelitis. She has a hx of kidney problems. Patient denies any blood thinner use. She denies any nausea, vomiting, abd pain, weakness, numbness, fevers, chills, SOB or any other complaints or concerns at this time. Home Medications Home Medications Medication Instructions Recorded Confirmed Type Lantus Solostar U-100 Insulin 8 unit SUBCUT HS 11/22/17 06/22/18 History Symbicort 2 puff INHALATION BID 11/22/17 06/22/18 History albuterol sulfate [Ventolin HFA] 2 - 4 puff INHALATION QID PRN 11/22/17 06/22/18 History anastrozole 1 mg PO QPM 11/22/17 06/22/18 History aspirin [Aspirin Low Dose] 81 mg PO QPM 11/22/17 06/22/18 History bupropion HCl 150 mg PO QPM 11/22/17 06/22/18 History calcium carbonate-vitamin D3 1 tab PO QPM 11/22/17 06/22/18 History [Os-Conrad 500 + D3] cholecalciferol (vitamin D3) 5,000 unit PO QAM 11/22/17 06/22/18 History ferrous sulfate 325 mg PO QPM 11/22/17 06/22/18 History metoprolol tartrate 12.5 mg PO BID 11/22/17 06/22/18 History multivitamin with minerals 1 tab PO QAM 11/22/17 06/22/18 History pantoprazole 40 mg PO QAM 11/22/17 06/22/18 History prednisone 5 mg PO QAM 11/22/17 06/22/18 History zafirlukast [Accolate] 20 mg PO Q12H 11/22/17 06/22/18 History bupropion HCl 225 mg PO QAM 01/27/18 06/22/18 History atorvastatin 40 mg PO UD 06/22/18 06/22/18 History brimonidine 1 drp OPB BID 06/22/18 06/22/18 History bumetanide 0.5 mg PO BID 06/22/18 06/22/18 History clopidogrel 75 mg PO UD 06/22/18 06/22/18 History dorzolamide 1 drp OPR BID 06/22/18 06/22/18 History Allergies Allergy/AdvReac Type Severity Reaction Status Date / Time Bactrim Allergy Severe dizzy,dyseq Verified 10/26/17 14:59 uilibrium bee venom protein (honey bee) Allergy Severe ANAPHYLAXIS Verified 06/22/18 18:09 cefaclor Allergy Severe stiff and Verified 06/22/18 18:09 sore muscles-PT DENIES lisinopril Allergy Severe tongue Verified 06/22/18 18:09 swelling diltiazem Allergy Intermediate rash Verified 06/22/18 18:09 Penicillins Allergy Mild RASH Verified 06/22/18 18:09 tetracycline Allergy Mild UNK-PT Verified 06/22/18 18:09 DENIES amoxicillin Allergy Unknown RASH Verified 06/22/18 18:09 baclofen Allergy Unknown ? Verified 06/22/18 18:09 cefuroxime Allergy Unknown TAST Verified 06/22/18 18:09 clavulanic acid Allergy Unknown ITCHING Verified 06/22/18 18:09 levofloxacin Allergy Unknown NAUSEA, Verified 06/22/18 18:09 DIZZINESS alendronate sodium AdvReac Intermediate FELT SICK Verified 06/22/18 18:09 Cipro AdvReac Intermediate LEGS ARMS Verified 10/26/17 14:59 STIFF, PAINFUL ciprofloxacin AdvReac Intermediate LEGS ARMS Verified 06/22/18 18:09 STIFF, PAINFUL doxycycline AdvReac Intermediate nausea and Verified 06/22/18 18:09 vomiting metformin AdvReac Intermediate CAUSED Verified 06/22/18 18:09 BACK PAIN AND INC. LACTIC ACID LEVELS tramadol AdvReac Intermediate DIZZINESS Verified 06/22/18 18:09 adhesive AdvReac Mild redness Verified 06/22/18 18:09 mercaptopurine AdvReac Mild MADE HER Verified 06/22/18 18:09 VERY ILL olmesartan AdvReac Mild HEADACHE Verified 06/22/18 18:09 Sulfa (Sulfonamide AdvReac Mild CAUSED Verified 06/22/18 18:09 Antibiotics) DIZZINESS sulfamethoxazole AdvReac Mild CAUSED Verified 06/22/18 18:09 DIZZINESS trimethoprim AdvReac Mild BACTRIM Verified 06/22/18 18:09 CAUSED DIZZINESS aspirin AdvReac Unknown CAUSES Verified 06/22/18 18:09 BRUISING Past Med/Surg History Medical History Anemia Asthma INHALERS DAILY/PRN Breast cancer, left breast X2--1ST)2005 2)2012---SX,RADIATION Chronic back pain Congestive heart failure Deep vein thrombosis L LEG Diabetes mellitus, type 2 Fibromyalgia GERD (gastroesophageal reflux disease) Glaucoma BILT EYES Hyperlipidemia Hypertension Protein S deficiency Rheumatoid arthritis Spinal stenosis Stroke 07/2017--DIFFICULTY WALKING Ulcerative colitis Surgical History H/O bilateral cataract extraction H/O right inguinal hernia repair History of appendectomy History of bowel resection 1993 WITH ILEOSTOMY @ [place] History of breast biopsy LEFT MALIGNANT X2 History of colonoscopy History of esophagogastroduodenoscopy (EGD) History of gastric surgery 2012---ABCESS ON STOMACH WALL History of lumpectomy of left breast X2 2005 WITH LYMPH NODE REMOVAL, 2012 History of tooth extraction ALL TEETH Family History Brother Family history of diabetes mellitus 2 BROTHERS Mother Family hx of colon cancer Father Family hx of colon cancer Social History Preferred Language: French Communication Ability: Effective Office Messenger Required: No Beliefs That Will Affect Care: None Current Living Situation: Spouse Other Information That Helps Us Care for You: No Feels Safe at Home: Yes Safety Concerns: Feels Safe At This Time Smoking Status: Former smoker Tobacco Type: cigarettes Second Hand Exposure: Yes ( SMOKED) Hx Alcohol Use: No Hx Substance Use: No Review of Systems See HPI for pertinent positives & negatives. and A total of 10 systems reviewed and were otherwise negative Physical Exam Vital Signs Vital Signs - 24 hr 06/22/18 16:55 06/22/18 18:17 06/22/18 18:45 Temperature 36.8 C Temperature Source Oral Sepsis Recent Fever Within 48 Hours No Sepsis New/Unexplained Change in Mental Status No Sepsis Action Taken by Nursing No Action Required Pulse Rate 77 Pulse Rate [Finger] 82 Pulse Rhythm [Finger] Regular Pulse Strength [Finger] Normal Respiratory Rate 20 18 Respiratory Effort / Characteristics Non-Labored Spontaneous Respiratory Depth Normal Respiratory Pattern Regular Blood Pressure 200/118 H Blood Pressure [Right Arm] 198/65 H Blood Pressure Mean 145 Blood Pressure Mean [Right Arm] 109 Blood Pressure Position [Right Arm] Lying Pulse Oximetry 98 98 98 Oxygen Delivery Method Room Air Room Air Room Air 06/22/18 20:01 06/22/18 22:14 06/22/18 22:56 Temperature Temperature Source Sepsis Recent Fever Within 48 Hours Sepsis New/Unexplained Change in Mental Status Sepsis Action Taken by Nursing Pulse Rate 75 Pulse Rate [Finger] 71 71 Pulse Rhythm [Finger] Pulse Strength [Finger] Respiratory Rate 15 20 14 Respiratory Effort / Characteristics Respiratory Depth Respiratory Pattern Blood Pressure 164/76 H Blood Pressure [Right Arm] 169/75 H 196/76 H Blood Pressure Mean Blood Pressure Mean [Right Arm] 106 116 Blood Pressure Position [Right Arm] Pulse Oximetry 100 98 96 Oxygen Delivery Method Room Air Room Air Room Air 06/22/18 23:15 Temperature 36.4 C L Temperature Source Oral Sepsis Recent Fever Within 48 Hours Sepsis New/Unexplained Change in Mental Status Sepsis Action Taken by Nursing Pulse Rate Pulse Rate [Finger] 81 Pulse Rhythm [Finger] Pulse Strength [Finger] Respiratory Rate 20 Respiratory Effort / Characteristics Respiratory Depth Respiratory Pattern Blood Pressure Blood Pressure [Right Arm] 173/76 H Blood Pressure Mean Blood Pressure Mean [Right Arm] 108 Blood Pressure Position [Right Arm] Pulse Oximetry 99 Oxygen Delivery Method Room Air GENERAL: Awake, alert, fatigued-appearing, in no distress HENT: Normocephalic, atraumatic. Oropharynx with dry mucous membranes and otherwise unremarkable. EYES: Normal conjunctiva. Sclera non-icteric. EOMI. No nystamgus. PEARRL. NECK: Supple. No nuchal rigidity. FROM. No JVD. RESPIRATORY: Clear to auscultation CARDIAC: Regular rate, normal rhythm. Extremities warm and well perfused. Pulses equal. ABDOMEN: Soft, non-distended. No tenderness to palpation. No rebound or guarding. No masses. RECTAL: Deferred. MUSCULOSKELETAL: The back is symmetrical.. No joint edema. Tenderness to left anterior, lateral and posterior chest wall and well as left flank with 10 cm region of ecchymosis. LOWER EXTREMITIES: Calves are equal size bilaterally and non-tender. No edema. No discoloration. NEURO: Normal sensorium. No sensory or motor deficits noted. Intact finger to nose SKIN: Warm and dry. No jaundice noted. Course 1732: Patient was evaluated in room C05. A full history and physical examination were obtained. 1947: Reassessed patient and discussed plan for admission. Patient is agreeable to plan. 2047: Discussed case with Dr. Bhatt, cardiothoracic surgery. 2129: Discussed case with Dr. Vogt, who accepts patient for admission. Administered Medications Acetaminophen (Tylenol) 650 mg PO Q4H PRN PRN Reason: pain/fever Stop: 07/22/18 23:41 Last Admin: 06/23/18 00:01 Dose: 650 mg Documented by: [id number] Insulin Aspart (Novolog Flexpen) 0 units SC ACHS JESSICA Stop: 07/23/18 00:00 Last Admin: 06/23/18 00:55 Dose: 2 units Documented by: [id number] Cosigned by: [id number] Discontinued Medications Acetaminophen (Ofirmev) 1,000 mg in 100 mls @ 400 mls/hr IV NOW STA Stop: 06/22/18 17:55 Last Infusion: 06/22/18 18:36 Dose: 0 mls/hr Documented by: [id number] Admin: 06/22/18 18:21 Dose: 400 mls/hr Documented by: [id number] Sodium Chloride (Nss 1000ml) 250 mls @ 999 mls/hr IV .Q16M ONE Stop: 06/22/18 17:56 Last Infusion: 06/22/18 18:37 Dose: 0 mls/hr Documented by: [id number] Admin: 06/22/18 18:21 Dose: 999 mls/hr Documented by: [id number] Medical Decision Making Differential Diagnosis Differential diagnosis: Etiologies such as fracture, dislocation, neurovascular compromise, compartment syndrome, soft tissue injury, as well as others were entertained. Medical Records Attestation: I reviewed the patient's medical records. Home Medications Current Medication List: was personally reviewed by me Laboratory Data Attestation: I reviewed the patient's lab results. Result diagrams: 06/22/18 23:54 06/22/18 18:17 Lab Results 06/22/18 06/22/18 06/22/18 Range/Units 18:17 18:17 18:17 WBC 12.86 H (4.8-10.8) K/uL RBC 2.88 L (4.2-5.4) M/uL Hgb 9.1 L (12.0-16.0) g/dL Hct 27.6 L (37-47) % MCV 95.8 (80-100) fL MCH 31.6 (25-34) pg MCHC 33.0 (32-36) g/dL RDW Std Deviation 47.0 H (36.4-46.3) fL RDW Coeff of Michelle 13.4 (11.5-14.5) % Plt Count 177 (130-400) K/uL MPV 9.9 (7.4-10.4) fL Immature Gran % (Auto) 0.3 % Neut % (Auto) 81.3 % Lymph % (Auto) 10.5 % [place] % (Auto) 6.8 % Eos % (Auto) 0.9 % Baso % (Auto) 0.2 % Immature Gran # (Auto) 0.04 H (0.00-0.02) K/uL Neut # (Auto) 10.46 H (1.4-6.5) K/uL Lymph # (Auto) 1.35 (1.2-3.4) K/uL [place] # (Auto) 0.87 H (0.11-0.59) K/uL Eos # (Auto) 0.11 (0-0.5) K/uL Baso # (Auto) 0.03 (0-0.2) K/uL PT Cancelled INR Cancelled Sodium 137 (136-145) mmol/L Potassium 4.6 (3.5-5.1) mmol/L Chloride 111 H (98-107) mmol/L Carbon Dioxide 23 (21-32) mmol/L Anion Gap 3.0 (3-11) BUN 54 H (7-18) mg/dl Creatinine 2.80 H (0.6-1.2) mg/dl Est Cr Clr Drug Dosing 13.8 ml/min Est GFR ( Amer) 17.7 Est GFR (Non-Af Amer) 15.3 BUN/Creatinine Ratio 19.4 (10-20) Glucose 214 H (70-99) mg/dl POC Glucose (70-99) Calcium 8.5 (8.5-10.1) mg/dl Total Bilirubin 0.2 (0.2-1) mg/dl AST 11 L (15-37) U/L ALT 15 (12-78) U/L Alkaline Phosphatase 74 (45-117) U/L Total Protein 5.6 L (6.4-8.2) gm/dl Albumin 2.6 L (3.4-5.0) gm/dl Globulin 3.0 (2.5-4.0) gm/dl Albumin/Globulin Ratio 0.9 (0.9-2) 06/22/18 06/22/18 06/22/18 Range/Units 19:30 19:33 23:54 WBC (4.8-10.8) K/uL RBC (4.2-5.4) M/uL Hgb 8.2 L (12.0-16.0) g/dL Hct (37-47) % MCV (80-100) fL MCH (25-34) pg MCHC (32-36) g/dL RDW Std Deviation (36.4-46.3) fL RDW Coeff of Michelle (11.5-14.5) % Plt Count (130-400) K/uL MPV (7.4-10.4) fL Immature Gran % (Auto) % Neut % (Auto) % Lymph % (Auto) % [place] % (Auto) % Eos % (Auto) % Baso % (Auto) % Immature Gran # (Auto) (0.00-0.02) K/uL Neut # (Auto) (1.4-6.5) K/uL Lymph # (Auto) (1.2-3.4) K/uL [place] # (Auto) (0.11-0.59) K/uL Eos # (Auto) (0-0.5) K/uL Baso # (Auto) (0-0.2) K/uL PT 9.8 INR 1.0 Sodium (136-145) mmol/L Potassium (3.5-5.1) mmol/L Chloride (98-107) mmol/L Carbon Dioxide (21-32) mmol/L Anion Gap (3-11) BUN (7-18) mg/dl Creatinine (0.6-1.2) mg/dl Est Cr Clr Drug Dosing ml/min Est GFR ( Amer) Est GFR (Non-Af Amer) BUN/Creatinine Ratio (10-20) Glucose (70-99) mg/dl POC Glucose 206 H (70-99) Calcium (8.5-10.1) mg/dl Total Bilirubin (0.2-1) mg/dl AST (15-37) U/L ALT (12-78) U/L Alkaline Phosphatase (45-117) U/L Total Protein (6.4-8.2) gm/dl Albumin (3.4-5.0) gm/dl Globulin (2.5-4.0) gm/dl Albumin/Globulin Ratio (0.9-2) 06/23/18 Range/Units 00:54 WBC (4.8-10.8) K/uL RBC (4.2-5.4) M/uL Hgb (12.0-16.0) g/dL Hct (37-47) % MCV (80-100) fL MCH (25-34) pg MCHC (32-36) g/dL RDW Std Deviation (36.4-46.3) fL RDW Coeff of Michelle (11.5-14.5) % Plt Count (130-400) K/uL MPV (7.4-10.4) fL Immature Gran % (Auto) % Neut % (Auto) % Lymph % (Auto) % [place] % (Auto) % Eos % (Auto) % Baso % (Auto) % Immature Gran # (Auto) (0.00-0.02) K/uL Neut # (Auto) (1.4-6.5) K/uL Lymph # (Auto) (1.2-3.4) K/uL [place] # (Auto) (0.11-0.59) K/uL Eos # (Auto) (0-0.5) K/uL Baso # (Auto) (0-0.2) K/uL PT INR Sodium (136-145) mmol/L Potassium (3.5-5.1) mmol/L Chloride (98-107) mmol/L Carbon Dioxide (21-32) mmol/L Anion Gap (3-11) BUN (7-18) mg/dl Creatinine (0.6-1.2) mg/dl Est Cr Clr Drug Dosing ml/min Est GFR ( Amer) Est GFR (Non-Af Amer) BUN/Creatinine Ratio (10-20) Glucose (70-99) mg/dl POC Glucose 229 H (70-99) Calcium (8.5-10.1) mg/dl Total Bilirubin (0.2-1) mg/dl AST (15-37) U/L ALT (12-78) U/L Alkaline Phosphatase (45-117) U/L Total Protein (6.4-8.2) gm/dl Albumin (3.4-5.0) gm/dl Globulin (2.5-4.0) gm/dl Albumin/Globulin Ratio (0.9-2) Imaging Data Radiologist's Impression: HEAD CT NONCONTRAST CT DOSE: HISTORY: pain fall TECHNIQUE: Multiaxial CT images of the head were performed without the use of intravenous contrast. Automated exposure control was utilized for this study. A dose lowering technique was utilized adhering to the principles of ALARA. Comparison: Head CT 08/28/2017. Findings: The paranasal sinuses and mastoid air cells are clear. The calvarium and skull base are intact. There is no mass, hematoma, midline shift, acute infarct. White matter hypodensity is nonspecific but suggestive of microvascular ischemic change. The ventricles and sulci demonstrate mild age-related involutional changes. Impression: No significant change compared to the prior study. No acute intracranial abnormality. Electronically signed by: Abel Broussard M.D. 06/22/2018 6:[address] chest wo con, CT abd pelvis wo con CT DOSE: 2937.76 mGy.cm HISTORY: left back pain ecchymosis, fall TECHNIQUE: Multiaxial CT images of the chest, abdomen, pelvis were performed without contrast. A dose lowering technique was utilized adhering to the principles of ALARA. COMPARISON: Chest abdomen pelvis CT 09/17/2011. FINDINGS: Multinodular thyroid goiter is noted. Increase in size in a groundglass 8 mm nodule within the right lung apex on image 45. The central airways are patent. No pneumothorax. No pleural effusions. Mild emphysema. Scattered subcentimeter calcified granulomas are noted. No change in the linear scarlike densities within the upper lobes. There is a new irregular focal 2.7 cm nodule within the right middle lobe on image 119. This demonstrates a groundglass halo. No mediastinal or hilar lymphadenopathy. No mediastinal hematoma. Normal caliber thoracic aorta. The heart is normal in size. Postoperative changes within the left breast are again noted. Right jugular Port-A-Cath terminates at the SVC. No pericardial effusion. Normal esophagus. 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 The T2-T3 disc space is fused. There is a 12 x 6 cm intramuscular hematoma within the inferior aspect of the left latissimus dorsi along the left posterior chest/abdominal wall. There is also thickening and an and intramuscular hematoma within the left pectoralis major muscle. This measures approximately 8 x 3.5 cm. No acute fractures within the chest. Neck No acute fractures within the abdomen or pelvis. The unenhanced liver, gallbladder, spleen, and adrenal glands are unremarkable. Mild bilateral perinephric edema which is likely chronic. No hydronephrosis. No retroperitoneal lymphadenopathy. Normal caliber abdominal aorta with mild calcified plaque. The pancreas remains atrophic. No pelvic free fluid. Normal bladder. 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 Right lower quadrant ostomy site demonstrating a moderate peristomal hernia with multiple loops of small bowel. No evidence for bowel obstruction. This remains unchanged. IMPRESSION: 1. Left latissimus dorsi and left pectoralis major intramuscular hematomas as described above. 2. No acute fractures identified. 3. A 2.7 cm focal irregular right middle lobe nodule. This is highly suspicious for a primary bronchogenic malignancy and pulmonary consultation recommended for bronchoscopy. 4. There is also an 8 mm groundglass nodule within the right lung apex which is slightly increased in size. This also likely represents a primary bronchogenic malignancy. 5. Additional chronic findings as described above. Electronically signed by: Abel Broussard M.D. 06/22/2018 7:[address] DOSE: HISTORY: Neck pain fall TECHNIQUE: Multiaxial CT images of the cervical spine were performed and reformatted in the sagittal and coronal plane without the use of contrast. A dose lowering technique was utilized adhering to the principles of ALARA. COMPARISON: None. FINDINGS: No fractures. No subluxation. Prevertebral soft tissues and the C1-C2 interval are intact. No pneumothorax. IMPRESSION: No fractures within the cervical spine. Electronically signed by: Abel Broussard M.D. 06/22/2018 6:52 PM ECG Data Attestation: I personally reviewed and interpreted this ECG as follows: Indication: other (fall) Rate (beats per minute): 71 Rhythm: normal sinus Findings: + other (LVH, no overt acute ischemic change) Blood Pressure Blood Pressure Findings: Elevated blood pressure MDM Narrative The patient is a pleasant 78-year-old woman with a past medical history of CKD, remote stroke on Plavix who presents emergency department with a mechanical fall onto her left side with pain and swelling per hpi. On arrival patient is in no acute distress, afebrile stable vital signs. On exam the patient has diffuse ecchymosis to her left flank and back with associated tenderness. She is neurologically intact. Abdomen is benign. Full range of motion of the hips bilaterally.EKG unremarkable without evidence of acute ischemia. WBC 12.8, nonspecific. H/H9 0.1/27.6 which is an acute decline from this morning at 11 AM with a hemoglobin of 11.5/35. Platelets within normal limits. INR within normal limits. Creatinine 2.8 within patient's baseline range. CT of the head, C-spine, chest, and abdomen pelvis demonstrates 2 x 6 cm intramuscular hematoma of left latissimus dorsi along the left posterior chest/abdominal wall. Additionally seen is a 8 x 3.5 cm. intramuscular hematoma within the left pectoralis major muscle. Patient was able to ambulate to the bathroom but felt slightly lightheaded. However, patient did continue to be hemodynamically stable during ED observation and so no emergent indication for transfusion as this time. Case discussed with Dr. Bhatt, CT surgery, who will be available for inpatient team consultation to see the patient in the morning. Case d/w Dr. Vogt, [facility] [place] hospitalist, who will evaluate the patient for admission. Dr. Vogt d/w patient and family incidental nodules on chest CT suspicious for malignancy. Impression & Plan Intramuscular hematoma, Blood loss anemia Discharge Plan Visit Data *Final* Discharge Date/Time: 06/22/18 22:56 Chief Complaint: Fall Stated Complaint: FALL, L SHOULDER, RIB & COLLARBONE PAIN ED Provider: Tobin Smith Discharge Problem: Intramuscular hematoma, Blood loss anemia Patient Disposition: Admitted As Inpatient Discharge Instructions Interventions: ED Discharge Assessment Last Done: 06/22/18 22:56 The scribe's documentation has been prepared under my direction and personally reviewed by me in its entirety. I confirm that the note above accurately reflects all work, treatment, procedures, and medical decision making performed by me.
--- NOTE | 2018-06-22 21:49 | History & Physical Report ---
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 The pt presents following a fall onto her L side where she sustained trauma to her L lateral chest. A CT of the chest obtained in the ER demonstrated L latissimus dorsi and L pectoralis major intramuscular hematomas. Initial labs are notable for a Hb of 9.1 which was 11.7 earlier in the day. She reports being slightly lightheaded and denies anterior CP or SOB. She has not exhibited any hemodynamic instability. Incidentally reported on her CT are a 2.7 cm focal irregular right middle lobe nodule and an 8 mm ground glass nodule within the right lung apex which are both suspicious for a primary bronchogenic malignancy. She was not previously aware of these findings. 1) Fall and hematoma - resultant anemia. She is assigned to observation overnight to monitor her Hb. She will be evaluated by thoracic surgery. PT/OT are requested for AM. Pain control provided. She takes ASA and Plavic daily which she can resume AM if her Hb is stable. 2) Abnormal CT chesty - 2 lesions in R lobe concerning for lung CA - this can be addressed in the outpt setting. I discussed the findings with the pt at the time of admission 3) CKD - creatinine is at baseline 4) Recent CVA - ASA and Plavix should net be interrupted if her Hb is stable. 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 The pt presents following a fall onto her L side where she sustained trauma to her L lateral chest. A CT of the chest obtained in the ER demonstrated L latissimus dorsi and L pectoralis major intramuscular hematomas. Initial labs are notable for a Hb of 9.1 which was 11.7 earlier in the day. She reports being slightly lightheaded and denies anterior CP or SOB. She has not exhibited any hemodynamic instability. Incidentally reported on her CT are a 2.7 cm focal irregular right middle lobe nodule and an 8 mm ground glass nodule within the right lung apex which are both suspicious for a primary bronchogenic malignancy. She was not previously aware of these findings. 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 9) RA Surgical: 1) Colectomy/ileostomy 2) Hernia repair 3) Cataracts 4) Breast lumpectomy Social: Does not drink or smoke Family: Father , colon CA, CAD/MN Mother breast CA Allergies Allergy/AdvReac Type Severity Reaction Status Date / Time Bactrim Allergy Severe dizzy,dyseq Verified 10/26/17 14:59 uilibrium bee venom protein (honey bee) Allergy Severe ANAPHYLAXIS Verified 06/22/18 18:09 cefaclor Allergy Severe stiff and Verified 06/22/18 18:09 sore muscles-PT DENIES lisinopril Allergy Severe tongue Verified 06/22/18 18:09 swelling diltiazem Allergy Intermediate rash Verified 06/22/18 18:09 Penicillins Allergy Mild RASH Verified 06/22/18 18:09 tetracycline Allergy Mild UNK-PT Verified 06/22/18 18:09 DENIES amoxicillin Allergy Unknown RASH Verified 06/22/18 18:09 baclofen Allergy Unknown ? Verified 06/22/18 18:09 cefuroxime Allergy Unknown TAST Verified 06/22/18 18:09 clavulanic acid Allergy Unknown ITCHING Verified 06/22/18 18:09 levofloxacin Allergy Unknown NAUSEA, Verified 06/22/18 18:09 DIZZINESS alendronate sodium AdvReac Intermediate FELT SICK Verified 06/22/18 18:09 Cipro AdvReac Intermediate LEGS ARMS Verified 10/26/17 14:59 STIFF, PAINFUL ciprofloxacin AdvReac Intermediate LEGS ARMS Verified 06/22/18 18:09 STIFF, PAINFUL doxycycline AdvReac Intermediate nausea and Verified 06/22/18 18:09 vomiting metformin AdvReac Intermediate CAUSED Verified 06/22/18 18:09 [employer] LACTIC ACID LEVELS tramadol AdvReac Intermediate DIZZINESS Verified 06/22/18 18:09 adhesive AdvReac Mild redness Verified 06/22/18 18:09 mercaptopurine AdvReac Mild MADE HER Verified 06/22/18 18:09 VERY ILL olmesartan AdvReac Mild HEADACHE Verified 06/22/18 18:09 Sulfa (Sulfonamide AdvReac Mild CAUSED Verified 06/22/18 18:09 Antibiotics) DIZZINESS sulfamethoxazole AdvReac Mild CAUSED Verified 06/22/18 18:09 DIZZINESS trimethoprim AdvReac Mild BACTRIM Verified 06/22/18 18:09 CAUSED DIZZINESS aspirin AdvReac Unknown CAUSES Verified 06/22/18 18:09 BRUISING Home Medications Home Medications Medication Instructions Recorded Confirmed Type Lantus Solostar U-100 Insulin 8 unit SUBCUT HS 11/22/17 06/22/18 History Symbicort 2 puff INHALATION BID 11/22/17 06/22/18 History albuterol sulfate [Ventolin HFA] 2 - 4 puff INHALATION QID PRN 11/22/17 06/22/18 History anastrozole 1 mg PO QPM 11/22/17 06/22/18 History aspirin [Aspirin Low Dose] 81 mg PO QPM 11/22/17 06/22/18 History bupropion HCl 150 mg PO QPM 11/22/17 06/22/18 History calcium carbonate-vitamin D3 1 tab PO QPM 11/22/17 06/22/18 History [Os-Conrad 500 + D3] cholecalciferol (vitamin D3) 5,000 unit PO QAM 11/22/17 06/22/18 History ferrous sulfate 325 mg PO QPM 11/22/17 06/22/18 History metoprolol tartrate 12.5 mg PO BID 11/22/17 06/22/18 History multivitamin with minerals 1 tab PO QAM 11/22/17 06/22/18 History pantoprazole 40 mg PO QAM 11/22/17 06/22/18 History prednisone 5 mg PO QAM 11/22/17 06/22/18 History zafirlukast [Accolate] 20 mg PO Q12H 11/22/17 06/22/18 History bupropion HCl 225 mg PO QAM 01/27/18 06/22/18 History atorvastatin 40 mg PO UD 06/22/18 06/22/18 History brimonidine 1 drp OPB BID 06/22/18 06/22/18 History bumetanide 0.5 mg PO BID 06/22/18 06/22/18 History clopidogrel 75 mg PO UD 06/22/18 06/22/18 History dorzolamide 1 drp OPR BID 06/22/18 06/22/18 History Past Med/Surg History Medical History Anemia Asthma INHALERS DAILY/PRN Breast cancer, left breast X2--1ST)2005 2)2012---SX,RADIATION Chronic back pain Congestive heart failure Deep vein thrombosis L LEG Diabetes mellitus, type 2 Fibromyalgia GERD (gastroesophageal reflux disease) Glaucoma BILT EYES Hyperlipidemia Hypertension Protein S deficiency Rheumatoid arthritis Spinal stenosis Stroke 07/2017--DIFFICULTY WALKING Ulcerative colitis Surgical History H/O bilateral cataract extraction H/O right inguinal hernia repair History of appendectomy History of bowel resection 1993 WITH ILEOSTOMY @ [facility] – [place] History of breast biopsy LEFT MALIGNANT X2 History of colonoscopy History of esophagogastroduodenoscopy (EGD) History of gastric surgery 2012---[facility] ON STOMACH WALL History of lumpectomy of left breast X2 2005 WITH LYMPH NODE REMOVAL, 2012 History of tooth extraction ALL TEETH Family History Brother Family history of diabetes mellitus 2 BROTHERS Mother Family hx of colon cancer Father Family hx of colon cancer Social History Preferred Language: Iranian Communication Ability: Effective Beliefs That Will Affect Care: None Current Living Situation: Spouse Feels Safe at Home: Yes Smoking Status: Never smoker Tobacco Type: cigarettes Second Hand Exposure: Yes ( SMOKED) Hx Alcohol Use: No Hx Substance Use: No Review of Systems Review of Systems: Gen: Denies fevers, night sweats, rigors, fatigue, malaise, weight loss/gain ENT: Denies congestion, throat pain, hearing loss Eyes: Denies acute visual changes CV: Denies palpitations - pain in L lat chest and back Pulmonary: Denies SOB, cough, wheezing GI: Denies N/V, diarrhea, constipation Neuro: Chronic LLE weakness - lightheaded Musculoskeletal: Back pain - L lat as above Endocrine: Denies polydipsia, polyuria Skin: Denies acute rashes or ulcers Physical Exam Physical Exam: General: AAO x 3, no distress ENT: No erythema or exudates, no thrush Eyes: ANDRIA, EOMI Head and neck: Normocephalic, atraumatic, No JVD, neck is supple. Chest/heart: Nontender, S1,2, RRR, no murmurs, no gallops Lungs: CTAB, no wheezing or crackles Abdomen: Nontender, nondistended, BS+ Neuro: AAO x 3, speech is clear - no acute deficits Musculoskeletal: There is a large hematoma pooling in her L lat mid back below the ribs Skin: No acute rashes or ulcers Extremities: No clubbing, cyanosis - minimal edema Results & Data Vital Signs (Past 12 Hours) Vital Signs Temp Pulse Pulse Resp BP BP Pulse Ox 06/22/18 20:01 71 15 169/75 H 100 06/22/18 18:45 82 18 198/65 H 98 06/22/18 18:17 98 06/22/18 16:55 98.2 F 77 20 200/[address] chest: 1. Left latissimus dorsi and left pectoralis major intramuscular hematomas. 2. No acute fractures identified. 3. A 2.7 cm focal irregular right middle lobe nodule. This is highly suspicious for a primary bronchogenic malignancy and pulmonary consultation recommended for bronchoscopy. 4. There is also an 8 mm ground glass nodule within the right lung apex which is slightly increased in size. This also likely represents a primary bronchogenic malignancy. 5. Additional chronic findings as described above.
[2018-06-22] MEDS ORDERED: ALUMINUM/MAGNESIUM SUSP 30 ML UDC PO PRN (23:42)
[2018-06-22] MEDS ORDERED: ONDANSETRON INJ 2 MG/ML 2 ML VIAL IV PRN (23:42)
[2018-06-22] MEDS ORDERED: ALBUTEROL HFA 8 GM INHALER INH PRN (23:42)
[2018-06-22] MEDS ORDERED: MAGNESIUM HYDROXIDE SUSP 30 ML UDC PO PRN (23:42)
[2018-06-22] MEDS ORDERED: POLYETHYLENE (MIRALAX) 17 GM PACK PO PRN (23:42)
[2018-06-22] MEDS ORDERED: TRAMADOL HCL 50 MG TABLET PO PRN (23:42)
[2018-06-22] MEDS ORDERED: CARBOHYDRATES FOR HYPOGLYCEMIA PO PRN (23:45)
[2018-06-22] MEDS ORDERED: DEXTROSE 50% 50 ML SYRINGE IV PRN (23:45)
[2018-06-22] MEDS ORDERED: GLUCOSE 10 TABS/TUBE PO PRN (23:45)
[2018-06-22] MEDS ORDERED: GLUCAGON FOR INJ 1 MG VIAL IM PRN (23:45)
[2018-06-22] MEDS ORDERED: GLUCOSE 40% GEL 15 GM TUBE PO PRN (23:45)
[2018-06-23] MEDS: ACETAMINOPHEN 325 MG TAB PO PRN ×3 (00:01→23:39)
[2018-06-23] MEDS: INSULIN ASPART 100 UNITS/ML 3 ML PEN SC SCH ×5 (00:55→21:40)
[2018-06-23] MEDS: METOPROLOL TARTRATE 25 MG TAB PO SCH ×2 (07:43→21:35)
[2018-06-23] MEDS: predniSONE 5 MG TAB PO SCH (07:43)
[2018-06-23] MEDS: BUMETANIDE 1 MG TAB PO SCH ×2 (07:43→17:25)
[2018-06-23] MEDS: buPROPion HCl 75 MG TABLET PO SCH (07:43)
[2018-06-23] MEDS: BRIMONIDINE TARTRATE 0.2% 5ML OPB SCH ×2 (07:43→21:38)
[2018-06-23] MEDS: PANTOprazole 40 MG TAB PO SCH (07:43)
[2018-06-23] MEDS: DORZOLAMIDE HCL 2% OPH SOLN 10 ML BTL OPR SCH ×2 (07:44→21:41)
[2018-06-23] MEDS: BUDESONIDE/FORMOTEROL FUMARATE 80/4.5 60 PUFFS/INHALER INH SCH ×2 (07:44→21:35)
[2018-06-23] MEDS: ATORVASTATIN 40 MG TAB PO SCH (08:37)
--- NOTE | 2018-06-23 08:42 | Consultation ---
Date of Consultation June 23, 2018 Assessment & Plan (1) Lung nodule: Two lung nodules visualized on CT 2.7 cm on right middle lobe and 8 mm ground glass opacity on right lung apex. Concerning for primary lung malignancy Plan is for Dr. Bhatt to perform navigational bronchoscopy and biopsy Procedure explained to patient and consents obtained and on chart. (2) Intramuscular hematoma: 2 hematomas visualized in left chest on CT Causing hemoglobin loss, down to 8.1 from 11.7 on admission. Will continue to monitor and check Hemoglobin If Hemoglobin drops below 7 recommend transfusing. Continue to hold clopidogrel and ASA until stable. History of Present Illness Requesting Physician: Eugene Vogt MD Reason for Consultation: Right lung nodules Attending Physician: Carole Jha MD History of Present Illness Ms. Florencia Elise is a very pleasant and intelligent 78 year old woman with a PMH significant for breast cancer (Twice, both left breast treated with lumpectomy and radiation), DMII, CVA last year (currently on cl opidogrel and ASA 81), Protein S deficiency, RA, Ulcerative colitis with ileostomy, and CHF who presented last night for a fall at home. She tells me she was reaching up in the kitchen when she fell backwards and landed on her side and backside. She has residual right sided weakness and a lack of coordination from her stroke which she says was the culprit in this fall. She did not feel light headed or lose consciousness at any point. She tells me she has had three falls since her stroke with this being the most severe. None of them associated with loss of consciousness or light headedness. On arrival to the emergency department she was found to be hemodynamically stable and CT showed intramuscular hematoma of left latissimus dorsi and pectoralis major. CT also happened to find two abnormal lung nodules. One 2.7 cm middle lobe lesion and a second 8 mm ground glass lesion in the apex of right lung. She was also found to have a hemoglobin of 11.7 on arrival and by midnight last night it had dropped to 8.2. Next check due for 8 am this morning. She was not aware of these lesions. She was formerly a pack a day smoker until the age of 51 when she quit completely her also smoked, he is currently at [facility] for follow up of a valve replacement. She has a history of asthma and uses her inhalers usually twice a day. She tells me she never gets very short of breath, has no chronic cough, has never had any hemoptysis, has not had any recent weight loss or weight gain, however she has had profound fatigue for last several months since around the time of the stroke. She also tells me she stopped taking her clopidogrel of her own accord due to chantell bleeding in ileostomy. Allergies Allergy/AdvReac Type Severity Reaction Status Date / Time Bactrim Allergy Severe dizzy,dyseq Verified 10/26/17 14:59 uilibrium bee venom protein (honey bee) Allergy Severe ANAPHYLAXIS Verified 06/22/18 18:09 cefaclor Allergy Severe stiff and Verified 06/22/18 18:09 sore muscles-PT DENIES lisinopril Allergy Severe tongue Verified 06/22/18 18:09 swelling diltiazem Allergy Intermediate rash Verified 06/22/18 18:09 Penicillins Allergy Mild RASH Verified 06/22/18 18:09 tetracycline Allergy Mild UNK-PT Verified 06/22/18 18:09 DENIES amoxicillin Allergy Unknown RASH Verified 06/22/18 18:09 baclofen Allergy Unknown ? Verified 06/22/18 18:09 cefuroxime Allergy Unknown TAST Verified 06/22/18 18:09 clavulanic acid Allergy Unknown ITCHING Verified 06/22/18 18:09 levofloxacin Allergy Unknown NAUSEA, Verified 06/22/18 18:09 DIZZINESS alendronate sodium AdvReac Intermediate FELT SICK Verified 06/22/18 18:09 Cipro AdvReac Intermediate LEGS ARMS Verified 10/26/17 14:59 STIFF, PAINFUL ciprofloxacin AdvReac Intermediate LEGS ARMS Verified 06/22/18 18:09 STIFF, PAINFUL doxycycline AdvReac Intermediate nausea and Verified 06/22/18 18:09 vomiting metformin AdvReac Intermediate CAUSED Verified 06/22/18 18:09 BACK PAIN [employer]. LACTIC ACID LEVELS tramadol AdvReac Intermediate DIZZINESS Verified 06/22/18 18:09 adhesive AdvReac Mild redness Verified 06/22/18 18:09 mercaptopurine AdvReac Mild MADE HER Verified 06/22/18 18:09 VERY ILL olmesartan AdvReac Mild HEADACHE Verified 06/22/18 18:09 Sulfa (Sulfonamide AdvReac Mild CAUSED Verified 06/22/18 18:09 Antibiotics) DIZZINESS sulfamethoxazole AdvReac Mild CAUSED Verified 06/22/18 18:09 DIZZINESS trimethoprim AdvReac Mild BACTRIM Verified 06/22/18 18:09 CAUSED DIZZINESS aspirin AdvReac Unknown CAUSES Verified 06/22/18 18:09 BRUISING Home Medications Home Medications Medication Instructions Recorded Confirmed Type Jerri Damonostar U-100 Insulin 8 unit SUBCUT HS 11/22/17 06/22/18 History Symbicort 2 puff INHALATION BID 11/22/17 06/22/18 History albuterol sulfate [Ventolin HFA] 2 - 4 puff INHALATION QID PRN 11/22/17 06/22/18 History anastrozole 1 mg PO QPM 11/22/17 06/22/18 History aspirin [Aspirin Low Dose] 81 mg PO QPM 11/22/17 06/22/18 History bupropion HCl 150 mg PO QPM 11/22/17 06/22/18 History calcium carbonate-vitamin D3 1 tab PO QPM 11/22/17 06/22/18 History [Os-Conrad 500 + D3] cholecalciferol (vitamin D3) 5,000 unit PO QAM 11/22/17 06/22/18 History ferrous sulfate 325 mg PO QPM 11/22/17 06/22/18 History metoprolol tartrate 12.5 mg PO BID 11/22/17 06/22/18 History multivitamin with minerals 1 tab PO QAM 11/22/17 06/22/18 History pantoprazole 40 mg PO QAM 11/22/17 06/22/18 History prednisone 5 mg PO QAM 11/22/17 06/22/18 History zafirlukast [Accolate] 20 mg PO Q12H 11/22/17 06/22/18 History bupropion HCl 225 mg PO QAM 01/27/18 06/22/18 History atorvastatin 40 mg PO UD 06/22/18 06/22/18 History brimonidine 1 drp OPB BID 06/22/18 06/22/18 History bumetanide 0.5 mg PO BID 06/22/18 06/22/18 History clopidogrel 75 mg PO UD 06/22/18 06/22/18 History dorzolamide 1 drp OPR BID 06/22/18 06/22/18 History Patient History Medical History Anemia Asthma INHALERS DAILY/PRN Breast cancer, left breast X2--1ST)2005 2)2012---SX,RADIATION Chronic back pain Congestive heart failure Deep vein thrombosis L LEG Diabetes mellitus, type 2 Fibromyalgia GERD (gastroesophageal reflux disease) Glaucoma BILT EYES Hyperlipidemia Hypertension Protein S deficiency Rheumatoid arthritis Spinal stenosis Stroke 07/2017--DIFFICULTY WALKING Ulcerative colitis Surgical History H/O bilateral cataract extraction H/O right inguinal hernia repair History of appendectomy History of bowel resection 1993 WITH [place]OST[place]Y @ [facility] [place] [facility] [place] History of breast biopsy LEFT MALIGNANT X2 History of colonoscopy History of esophagogastroduodenoscopy (EGD) History of gastric surgery 2012---[facility] ON STOMACH WALL History of lumpectomy of left breast X2 2005 WITH LYMPH NODE REMOVAL, 2012 History of tooth extraction ALL TEETH Family History Brother Family history of diabetes mellitus 2 BROTHERS Mother Family hx of colon cancer Father Family hx of colon cancer Social History Preferred Language: Georgian Communication Ability: Effective Infrastructure Manager Required: No Beliefs That Will Affect Care: None Current Living Situation: Spouse Other Information That Helps Us Care for You: No Feels Safe at Home: Yes Safety Concerns: Feels Safe At This Time Smoking Status: Former smoker Tobacco Type: cigarettes Second Hand Exposure: Yes ( SMOKED) Hx Alcohol Use: No Hx Substance Use: No Review of Systems Constitutional: + body aches and + malaise; no fever, no chills, no sweats, no weight loss and no weight gain Eyes: no worsening vision Respiratory: no cough, no change in sputum, no dyspnea and no hemoptysis Cardiovascular: no chest pain at rest, no dyspnea, no palpitations, no lightheadedness, no syncope and no calf pain Gastrointestinal: no abdominal pain, no nausea and no vomiting Musculoskeletal: + stiffness and + body aches Left sided chest pain, hip aches but not tender to palpation, whole body feels stiff. Neurologic: + gait abnormality, + unsteadiness, + falls and + localized weakness (Right sided post CVA) Physical Exam Constitutional: well developed and + obese; no acute distress, not ill appearing and no altered mental status Eyes: PERRL, conjunctivae normal, anicteric sclerae Respiratory: normal respiratory effort; no respiratory distress, no labored breathing and no cough Auscultation: lungs clear to auscultation bilaterally; no crackles, no rales, no rhonchi and no wheezes Cardiovascular: Rate/Rhythm: regular rate and regular rhythm Vessels: shad l peripheral pulses Extremities: no calf tenderness and no pedal edema Chest (Breasts): Additional Comments: Evidence of previous surgical incisions on left breast and left axilla. Gastrointestinal (Abdomen): Abdomen soft non tender, iliostomy in place draining normally. Musculoskeletal: Head/Neck/Chest: + head abnormal to inspection, + abnormal inspection of chest wall (Large area of bruising on left flank) and + abnormal palpation of chest wall (Tender to palpation); full ROM of neck Neurologic: PERRL, EOMI, accommodation nl, no face palsy, no dysarthria CN's II-XI intact bilaterally and moves all extremities Results & Data Vital Signs (Past 12 Hours) Vital Signs Temp Pulse Pulse Resp BP BP Pulse Ox 06/22/18 23:15 36.4 C L 81 20 173/76 H 99 06/22/18 22:56 75 14 164/76 H 96 06/22/18 22:14 71 20 196/76 H 98 Resident Activity Tracking Resident Involvement: Resident Care Provided Care Provided: Adult Hospital Medicine
[2018-06-23 08:52] LABS: BUN Creatinine Ratio 20.9 (10-20); Calcium 8.8 mg/dl (8.5-10.1); Creatinine Clr Calc Pharmacy 18.4 ml/min; Est GFR (African American) 18.5; Magnesium 2.1 mg/dl (1.8-2.4); Potassium 4.1 mmol/L (3.5-5.1)
[2018-06-23] MEDS ORDERED: CLOPIDOGREL BISULFATE 75 MG TAB PO SCH (09:00)
--- NOTE | 2018-06-23 14:45 | Hospitalist Progress Note ---
Date of Service June 23, 2018 Assessment & Plan (1) Hematoma: - CT chest showed left latissimus dorsi and left pectoralis major intramuscular hematoma following fall at home. - CBC decreased in setting of acute bleed. - Will monitor CBC q8hr -- transfuse for hgb <7. - Holding home Plavix/Aspirin. (2) Fall: - Likely mechanical fall; no indication for cardiac work up. - PT/OT ordered - may require inpt rehab at discharge. (3) Abnormal chest CT: - Two lesions noted in right lung concerning for malignancy. - Plan for bronch with biopsy on 06/24/[address] surgery. - Holding aspirin/plavix for procedure. - NPO after midnight; gentle IV fluid hydration after midnight. (4) CKD (chronic kidney disease) stage 4, GFR 15-29 ml/min: - Renally dose all meds. - Renal function is currently at baseline. (5) History of CVA (cerebrovascular accident): - Occurred in July 2017; has residual lower extremity weakness. - On Plavix and Aspirin at home -- pt. was taking Plavix intermittently due to bleeding from ostomy. - Will hold meds for procedure; plan to resume single agent aspirin following procedure and d/c Plavix. - Pt. has not been taking statin at home due to myalgias. (6) Type II diabetes mellitus: - Most recent A1C was 6.8 in August 2017; repeat A1C in the AM. - SSI ordered -- will increase coverage due to hyperglycemia. - On Lantus 8 units qhs at home. (7) Hypertension: - Continue Metoprolol 12.5 mg BID and Bumex 0.5 mg BID as prescribed (hold diuretic on 06/24 while NPO) - BP has been elevated -- pt. states her BP is well controlled at home, thinks HTN is related to BP cuff used during admission. (8) Rheumatoid arthritis: - Continue home Prednisone 5 mg daily -- consider stress dose steroids if indicated. (9) Ulcerative colitis: - S/p ostomy placement. - Monitor as outpatient, continue home Prednisone. (10) Protein S deficiency: - Monitored as outpatient. (11) Deep venous thrombosis: - H/o DVT in past. - Holding anticoagulation therapy due to acute bleed, planned procedure. (12) Breast cancer: - Continue Arimidex as prescribed. (13) Depression: - Continue Welbutrin as prescribed. (14) DVT prophylaxis: - SCDs; hold pharmacologic ppx due to procedure/acute bleed. Dispo: Med/surg; plan for bronch on 06/24/18. Supervising Physician Co-Signing Physician Notes PA Supervision Note: I did not personally see or examine the patient today, but I verified all delatorre points of REBEKAH Vizcaino's assessment and plan with the following exceptions/additions: None Subjective Pt. has a headache and dizziness. Dizziness is increased with movement, worse with walking to bathroom this morning. Denies nausea/vomiting, abd pain, diarrhea or constipation. Denies right sided chest pain or back pain. Has pulm nodules -- will go to OR coty for bronch with biopsy. Review of Systems Review of Systems: All systems reviewed & are unremarkable except as noted in HPI & below Constitutional: + fatigue and + weakness; no fever, no chills and no anorexia Respiratory: no cough, no dyspnea, no dyspnea on exertion and no wheezing Cardiovascular: + lightheadedness; no chest pain, no palpitations, no syncope and no edema Gastrointestinal: no abdominal pain, no nausea, no vomiting, no constipation and no diarrhea/loose stools Genitourinary: no difficulty urinating Musculoskeletal: no back pain and no joint pain Integumentary: no non-healing lesions Neurologic: + dizziness and + headache(s) Allergy / Immunological: no rash Physical Exam Physical Exam: General: Resting comfortably in no apparent distress; A&OX3 HEENT: NC/AT; PERRLA with EOMI; [place] conjunctiva, MMM. Neck: Supple and nontender Cardiac: RRR w/o murmurs, gallops or rubs Lungs: CTA bilaterally Abdomen: Bowel normoactive X 4; Nontender to palpation Extremities: Warm. No edema present Neuro: No focal weakness Skin: No rash Results & Data Vital Signs (Past 12 Hours) Vital Signs Temp Pulse Resp BP Pulse Ox 06/23/18 08:21 36.4 C L 78 20 142/80 H 99 Laboratory Results 06/23/18 06/23/18 06/23/18 Range/Units 11:34 08:05 08:04 WBC (4.8-10.8) K/uL RBC (4.2-5.4) M/uL Hgb (12.0-16.0) g/dL Hct (37-47) % MCV (80-100) fL MCH (25-34) pg MCHC (32-36) g/dL RDW Std Deviation (36.4-46.3) fL RDW Coeff of Michelle (11.5-14.5) % Plt Count (130-400) K/uL MPV (7.4-10.4) fL Immature Gran % (Auto) % Neut % (Auto) % Lymph % (Auto) % Long % (Auto) % Eos % (Auto) % Baso % (Auto) % Immature Gran # (Auto) (0.00-0.02) K/uL Neut # (Auto) (1.4-6.5) K/uL Lymph # (Auto) (1.2-3.4) K/uL Long # (Auto) (0.11-0.59) K/uL Eos # (Auto) (0-0.5) K/uL Baso # (Auto) (0-0.2) K/uL PT INR Sodium 141 (136-145) mmol/L Potassium 4.1 (3.5-5.1) mmol/L Chloride 113 H (98-107) mmol/L Carbon Dioxide 20 L (21-32) mmol/L Anion Gap 8.0 (3-11) BUN 56 H (7-18) mg/dl Creatinine 2.70 H (0.6-1.2) mg/dl Est Cr Clr Drug Dosing 18.4 ml/min Est GFR ( Amer) 18.5 Est GFR (Non-Af Amer) 16.0 BUN/Creatinine Ratio 20.9 H (10-20) Glucose 127 H (70-99) mg/dl POC Glucose 260 H 117 H (70-99) Calcium 8.8 (8.5-10.1) mg/dl Magnesium 2.1 (1.8-2.4) mg/dl Total Bilirubin (0.2-1) mg/dl AST (15-37) U/L ALT (12-78) U/L Alkaline Phosphatase (45-117) U/L Total Protein (6.4-8.2) gm/dl Albumin (3.4-5.0) gm/dl Globulin (2.5-4.0) gm/dl Albumin/Globulin Ratio (0.9-2) 06/23/18 06/23/18 06/22/18 Range/Units 08:02 00:54 23:54 WBC (4.8-10.8) K/uL RBC (4.2-5.4) M/uL Hgb 8.4 L 8.2 L (12.0-16.0) g/dL Hct (37-47) % MCV (80-100) fL MCH (25-34) pg MCHC (32-36) g/dL RDW Std Deviation (36.4-46.3) fL RDW Coeff of Michelle (11.5-14.5) % Plt Count (130-400) K/uL MPV (7.4-10.4) fL Immature Gran % (Auto) % Neut % (Auto) % Lymph % (Auto) % Long % (Auto) % Eos % (Auto) % Baso % (Auto) % Immature Gran # (Auto) (0.00-0.02) K/uL Neut # (Auto) (1.4-6.5) K/uL Lymph # (Auto) (1.2-3.4) K/uL Long # (Auto) (0.11-0.59) K/uL Eos # (Auto) (0-0.5) K/uL Baso # (Auto) (0-0.2) K/uL PT INR Sodium (136-145) mmol/L Potassium (3.5-5.1) mmol/L Chloride (98-107) mmol/L Carbon Dioxide (21-32) mmol/L Anion Gap (3-11) BUN (7-18) mg/dl Creatinine (0.6-1.2) mg/dl Est Cr Clr Drug Dosing ml/min Est GFR ( Amer) Est GFR (Non-Af Amer) BUN/Creatinine Ratio (10-20) Glucose (70-99) mg/dl POC Glucose 229 H (70-99) Calcium (8.5-10.1) mg/dl Magnesium (1.8-2.4) mg/dl Total Bilirubin (0.2-1) mg/dl AST (15-37) U/L ALT (12-78) U/L Alkaline Phosphatase (45-117) U/L Total Protein (6.4-8.2) gm/dl Albumin (3.4-5.0) gm/dl Globulin (2.5-4.0) gm/dl Albumin/Globulin Ratio (0.9-2) 06/22/18 06/22/18 06/22/18 Range/Units 19:33 19:30 18:17 WBC (4.8-10.8) K/uL RBC (4.2-5.4) M/uL Hgb (12.0-16.0) g/dL Hct (37-47) % MCV (80-100) fL MCH (25-34) pg MCHC (32-36) g/dL RDW Std Deviation (36.4-46.3) fL RDW Coeff of Michelle (11.5-14.5) % Plt Count (130-400) K/uL MPV (7.4-10.4) fL Immature Gran % (Auto) % Neut % (Auto) % Lymph % (Auto) % Long % (Auto) % Eos % (Auto) % Baso % (Auto) % Immature Gran # (Auto) (0.00-0.02) K/uL Neut # (Auto) (1.4-6.5) K/uL Lymph # (Auto) (1.2-3.4) K/uL Long # (Auto) (0.11-0.59) K/uL Eos # (Auto) (0-0.5) K/uL Baso # (Auto) (0-0.2) K/uL PT 9.8 Cancelled INR 1.0 Cancelled Sodium (136-145) mmol/L Potassium (3.5-5.1) mmol/L Chloride (98-107) mmol/L Carbon Dioxide (21-32) mmol/L Anion Gap (3-11) BUN (7-18) mg/dl Creatinine (0.6-1.2) mg/dl Est Cr Clr Drug Dosing ml/min Est GFR ( Amer) Est GFR (Non-Af Amer) BUN/Creatinine Ratio (10-20) Glucose (70-99) mg/dl POC Glucose 206 H (70-99) Calcium (8.5-10.1) mg/dl Magnesium (1.8-2.4) mg/dl Total Bilirubin (0.2-1) mg/dl AST (15-37) U/L ALT (12-78) U/L Alkaline Phosphatase (45-117) U/L Total Protein (6.4-8.2) gm/dl Albumin (3.4-5.0) gm/dl Globulin (2.5-4.0) gm/dl Albumin/Globulin Ratio (0.9-2) 06/22/18 06/22/18 Range/Units 18:17 18:17 WBC 12.86 H (4.8-10.8) K/uL RBC 2.88 L (4.2-5.4) M/uL Hgb 9.1 L (12.0-16.0) g/dL Hct 27.6 L (37-47) % MCV 95.8 (80-100) fL MCH 31.6 (25-34) pg MCHC 33.0 (32-36) g/dL RDW Std Deviation 47.0 H (36.4-46.3) fL RDW Coeff of Michelle 13.4 (11.5-14.5) % Plt Count 177 (130-400) K/uL MPV 9.9 (7.4-10.4) fL Immature Gran % (Auto) 0.3 % Neut % (Auto) 81.3 % Lymph % (Auto) 10.5 % Long % (Auto) 6.8 % Eos % (Auto) 0.9 % Baso % (Auto) 0.2 % Immature Gran # (Auto) 0.04 H (0.00-0.02) K/uL Neut # (Auto) 10.46 H (1.4-6.5) K/uL Lymph # (Auto) 1.35 (1.2-3.4) K/uL Long # (Auto) 0.87 H (0.11-0.59) K/uL Eos # (Auto) 0.11 (0-0.5) K/uL Baso # (Auto) 0.03 (0-0.2) K/uL PT INR Sodium 137 (136-145) mmol/L Potassium 4.6 (3.5-5.1) mmol/L Chloride 111 H (98-107) mmol/L Carbon Dioxide 23 (21-32) mmol/L Anion Gap 3.0 (3-11) BUN 54 H (7-18) mg/dl Creatinine 2.80 H (0.6-1.2) mg/dl Est Cr Clr Drug Dosing 13.8 ml/min Est GFR ( Amer) 17.7 Est GFR (Non-Af Amer) 15.3 BUN/Creatinine Ratio 19.4 (10-20) Glucose 214 H (70-99) mg/dl POC Glucose (70-99) Calcium 8.5 (8.5-10.1) mg/dl Magnesium (1.8-2.4) mg/dl Total Bilirubin 0.2 (0.2-1) mg/dl AST 11 L (15-37) U/L ALT 15 (12-78) U/L Alkaline Phosphatase 74 (45-117) U/L Total Protein 5.6 L (6.4-8.2) gm/dl Albumin 2.6 L (3.4-5.0) gm/dl Globulin 3.0 (2.5-4.0) gm/dl Albumin/Globulin Ratio 0.9 (0.9-2)
--- NOTE | 2018-06-23 15:18 | Anesthesiology Consultation ---
Date of Service June 23, 2018 History Surgery Operation Date: 06/24/18 12:30 Proposed Procedures p Endobronchial Ultrasound - Loki Bhatt MD, FACS s and Navigational Bronchoscopy - Loki Bhatt MD, FACS Height/Weight Height: 5 ft 5 in Weight: 89.7 kg Allergies Allergy/AdvReac Type Severity Reaction Status Date / Time Bactrim Allergy Severe dizzy,dyseq Verified 10/26/17 14:59 uilibrium bee venom protein (honey bee) Allergy Severe ANAPHYLAXIS Verified 06/22/18 18:09 cefaclor Allergy Severe stiff and Verified 06/22/18 18:09 sore muscles-PT DENIES lisinopril Allergy Severe tongue Verified 06/22/18 18:09 swelling diltiazem Allergy Intermediate rash Verified 06/22/18 18:09 Penicillins Allergy Mild RASH Verified 06/22/18 18:09 tetracycline Allergy Mild UNK-PT Verified 06/22/18 18:09 DENIES amoxicillin Allergy Unknown RASH Verified 06/22/18 18:09 baclofen Allergy Unknown ? Verified 06/22/18 18:09 cefuroxime Allergy Unknown TAST Verified 06/22/18 18:09 clavulanic acid Allergy Unknown ITCHING Verified 06/22/18 18:09 levofloxacin Allergy Unknown NAUSEA, Verified 06/22/18 18:09 DIZZINESS alendronate sodium AdvReac Intermediate FELT SICK Verified 06/22/18 18:09 Cipro AdvReac Intermediate LEGS ARMS Verified 10/26/17 14:59 STIFF, PAINFUL ciprofloxacin AdvReac Intermediate LEGS ARMS Verified 06/22/18 18:09 STIFF, PAINFUL doxycycline AdvReac Intermediate nausea and Verified 06/22/18 18:09 vomiting metformin AdvReac Intermediate CAUSED Verified 06/22/18 18:09 BACK PAIN AND INC. LACTIC ACID LEVELS tramadol AdvReac Intermediate DIZZINESS Verified 06/22/18 18:09 adhesive AdvReac Mild redness Verified 06/22/18 18:09 mercaptopurine AdvReac Mild MADE HER Verified 06/22/18 18:09 VERY ILL olmesartan AdvReac Mild HEADACHE Verified 06/22/18 18:09 Sulfa (Sulfonamide AdvReac Mild CAUSED Verified 06/22/18 18:09 Antibiotics) DIZZINESS sulfamethoxazole AdvReac Mild CAUSED Verified 06/22/18 18:09 DIZZINESS trimethoprim AdvReac Mild BACTRIM Verified 06/22/18 18:09 CAUSED DIZZINESS aspirin AdvReac Unknown CAUSES Verified 06/22/18 18:09 BRUISING Medications Home Medications Medication Instructions Recorded Confirmed Last Taken Lantus Solostar U-100 Insulin 8 unit SUBCUT HS 11/22/17 06/22/18 11/30/17 22:00 Symbicort 2 puff INHALATION BID 11/22/17 06/22/18 12/01/17 10:00 albuterol sulfate [Ventolin HFA] 2 - 4 puff INHALATION QID PRN 11/22/17 06/22/18 Unknown anastrozole 1 mg PO QPM 11/22/17 06/22/18 Unknown aspirin [Aspirin Low Dose] 81 mg PO QPM 11/22/17 06/22/18 Unknown bupropion HCl 150 mg PO QPM 11/22/17 06/22/18 12/01/17 10:00 calcium carbonate-vitamin D3 1 tab PO QPM 11/22/17 06/22/18 11/30/17 22:00 [Os-Conrad 500 + D3] cholecalciferol (vitamin D3) 5,000 unit PO QAM 11/22/17 06/22/18 12/01/17 10:00 ferrous sulfate 325 mg PO QPM 11/22/17 06/22/18 11/30/17 22:00 metoprolol tartrate 12.5 mg PO BID 11/22/17 06/22/18 Unknown multivitamin with minerals 1 tab PO QAM 11/22/17 06/22/18 Unknown pantoprazole 40 mg PO QAM 11/22/17 06/22/18 Unknown prednisone 5 mg PO QAM 11/22/17 06/22/18 Unknown zafirlukast [Accolate] 20 mg PO Q12H 11/22/17 06/22/18 Unknown bupropion HCl 225 mg PO QAM 01/27/18 06/22/18 Unknown atorvastatin 40 mg PO UD 06/22/18 06/22/18 Unknown brimonidine 1 drp OPB BID 06/22/18 06/22/18 Unknown bumetanide 0.5 mg PO BID 06/22/18 06/22/18 Unknown clopidogrel 75 mg PO UD 06/22/18 06/22/18 Unknown dorzolamide 1 drp OPR BID 06/22/18 06/22/18 Unknown Active Medications Generic Name Dose Route Start Last Admin Trade Name Shasha PRN Reason Stop Dose Admin Acetaminophen 650 mg 06/22/18 23:42 06/23/18 15:30 Tylenol PO 07/22/18 23:41 650 mg Q4H PRN Administration pain/fever Atorvastatin Calcium 40 mg 06/23/18 09:00 06/23/18 08:37 Lipitor PO 07/23/18 08:59 Not Given QAM JESSICA Brimonidine Tartrate 1 drops 06/23/18 09:00 06/23/18 07:43 Alphagan 0.2% OPB 07/23/18 08:59 1 drops BID JESSICA Administration Budesonide/Formoterol Fumarate 2 puffs 06/23/18 09:00 06/23/18 07:44 Symbicort 80mcg/4.5mcg INH 07/23/18 08:59 2 puffs BID JESSICA Administration Bumetanide 0.5 mg 06/23/18 09:00 06/23/18 07:43 Bumex PO 07/23/18 08:59 0.5 mg BID17 JESSICA Administration Bupropion HCl 225 mg 06/23/18 09:00 06/23/18 07:43 Wellbutrin PO 07/23/18 08:59 225 mg QAM JESSICA Administration Dorzolamide HCl 1 drops 06/23/18 09:00 06/23/18 07:44 Trusopt 2% Oph OPR 07/23/18 08:59 1 drops BID JESSICA Administration Insulin Aspart 0 units 06/23/18 00:00 06/23/18 13:38 Novolog Flexpen SC 07/23/18 00:00 3 units ACHS JESSICA Administration Metoprolol Tartrate 12.5 mg 06/23/18 09:00 06/23/18 07:43 Lopressor PO 07/23/18 08:59 12.5 mg BID JESSICA Administration Miscellaneous 1 ea 06/23/18 08:00 06/23/18 07:33 Order Awaiting Action N/A 07/23/18 07:59 Not Given QS JESSICA Pantoprazole Sodium 40 mg 06/23/18 09:00 06/23/18 07:43 Protonix PO 07/23/18 08:59 40 mg QAM JESSICA Administration Prednisone 5 mg 06/23/18 09:00 06/23/18 07:43 Prednisone PO 07/23/18 08:59 5 mg QAM JESSICA Administration Beta Chi Beta Chi Taken Within 24 Hours: Yes Past Medical History Medical History CKD (chronic kidney disease) Anemia Asthma INHALERS DAILY/PRN Breast cancer, left breast X2--1ST)2005 2)2012---SX,RADIATION Chronic back pain Congestive heart failure Deep vein thrombosis L LEG Diabetes mellitus, type 2 Fibromyalgia GERD (gastroesophageal reflux disease) Glaucoma BILT EYES Hyperlipidemia Hypertension Protein S deficiency Rheumatoid arthritis Spinal stenosis Stroke 07/2017--DIFFICULTY WALKING Ulcerative colitis Past Family History Family History Brother Family history of diabetes mellitus 2 BROTHERS Mother Family hx of colon cancer Father Family hx of colon cancer Past Surgical History Surgical History H/O bilateral cataract extraction H/O right inguinal hernia repair History of appendectomy History of bowel resection 1993 WITH ILEOSTOMY @ [facility] [place] History of breast biopsy LEFT MALIGNANT X2 History of colonoscopy History of esophagogastroduodenoscopy (EGD) History of gastric surgery 2012---[facility] ON STOMACH WALL History of lumpectomy of left breast X2 2005 WITH LYMPH NODE REMOVAL, 2012 History of tooth extraction ALL TEETH Social History Smoking Status: Former smoker tobacco type: cigarettes Hx Alcohol Use: No Hx Substance Use: No substance use type: does not use Physical Exam Vital Signs Last Vital Signs Temp 36.4 C L 06/23/18 08:21 Pulse 78 06/23/18 08:21 Resp 20 06/23/18 08:21 BP 146/82 H 06/23/18 14:42 Pulse Ox 99 06/23/18 08:21 Testing Laboratory Results 06/23/18 08:02 06/23/18 08:04 PT 9.8 Seconds (9.0-12.0) 06/22/18 19:30 INR 1.0 (0.9-1.1) 06/22/18 19:30 06/23/18 06/23/18 11:34 08:05 POC Glucose 260 H 117 H
[2018-06-23 15:46] LABS: Hematocrit (blood only) 22.7 % (37-47); Hemoglobin 7.7 g/dL (12.0-16.0)
[2018-06-23] MEDS ORDERED: SODIUM CHLORIDE 0.9% 250 ML IV PRN (18:06)
[2018-06-23] MEDS ORDERED: ASPIRIN 81 MG ECTAB PO SCH (21:00)
[2018-06-23] MEDS ORDERED: buPROPion HCl 75 MG TABLET PO SCH (21:00)
--- NOTE | 2018-06-23 21:25 | Consultation Report ---
DATE OF CONSULTATION: 06/23/2018 REASON FOR CONSULTATION: Lung masses. HISTORY OF PRESENT ILLNESS: A very nice 78-year-old female who fell when she was reaching up for something in her kitchen and landed on her side. She did not strike her head. She had a stroke last summer and has had some falls due to incoordination. CT scan showed she had a hematoma involving her left latissimus dorsi and pectoralis muscle and a stellate lesion in her middle lobe that certainly appears malignant. There is also an 8-mm ground-glass opacity with some solid component in the apex of her right lung. She has dropped her hemoglobin from 11.7 to 8.2. She smoked cigarettes from her late teens until age 51 when she stopped. She has about a 42-mghh-jchh history. She denies hemoptysis. She has had no unusual cough. She has had no neurologic signs after the stroke last summer. She does have a history of an ileostomy as well as a history of breast cancer. She has a history of ulcerative colitis. I had a long talk with the patient, her , and her 2 daughters. I have explained that I think that while we are here, we should proceed with a bronchoscopy with an endobronchial ultrasound as well as a navigational bronchoscopy. We discussed this in some detail. We are going to proceed tomorrow. We will stage her and also attempt to get a diagnosis. For the results of the full consultation, please refer to Dr. Blade Siddiqi's consultation which was performed while he was rotating on our service.
[2018-06-23] MEDS: ANASTROZOLE 1 MG TAB PO SCH (21:36)
[2018-06-23] MEDS: FERROUS SULFATE 325 MG TAB PO SCH (21:36)
[2018-06-23] MEDS: CALCIUM 600MG + VIT D 400 IU TAB PO SCH (21:37)
[2018-06-23 23:22] LABS: Hemoglobin 7.1 g/dL (12.0-16.0)
[2018-06-24] MEDS ORDERED: SODIUM CHLORIDE 0.9% 1000ML 1,000 ML IV SCH (01:00)
[2018-06-24 06:22] LABS: Hematocrit (blood only) 22.6 % (37-47); Hemoglobin 7.4 g/dL (12.0-16.0); Mean Corpuscular Hgb Conc 32.7 g/dL (32-36); Mean Corpuscular Volume 95.4 fL (80-100); Platelet Count 188 K/uL (130-400); RDW Coefficient of Variation 13.6 % (11.5-14.5); RDW Standard Deviation 47.3 fL (36.4-46.3); Red Blood Count 2.37 M/uL (4.2-5.4); White Blood Count 10.74 K/uL (4.8-10.8)
[2018-06-24 06:56] LABS: BUN Creatinine Ratio 18.5 (10-20); Calcium 8.7 mg/dl (8.5-10.1); Creatinine Clr Calc Pharmacy 15.7 ml/min; Est GFR (African American) 15.3; Est GFR (Non-African American) 13.2; Potassium 4.1 mmol/L (3.5-5.1)
[2018-06-24] MEDS: INSULIN ASPART 100 UNITS/ML 3 ML PEN SC SCH ×4 (08:49→20:43)
[2018-06-24] MEDS: BRIMONIDINE TARTRATE 0.2% 5ML OPB SCH ×2 (08:50→20:46)
[2018-06-24] MEDS: ATORVASTATIN 40 MG TAB PO SCH (08:51)
[2018-06-24] MEDS: METOPROLOL TARTRATE 25 MG TAB PO SCH ×2 (08:53→19:33)
[2018-06-24] MEDS: predniSONE 5 MG TAB PO SCH (08:54)
[2018-06-24] MEDS: BUDESONIDE/FORMOTEROL FUMARATE 80/4.5 60 PUFFS/INHALER INH SCH ×2 (08:55→20:45)
[2018-06-24] MEDS: PANTOprazole 40 MG TAB PO SCH (08:55)
[2018-06-24] MEDS: ZAFIRLUKAST 20MG: NON-FORMULARY PATIENT'S OWN MED PO SCH ×2 (08:56→20:45)
[2018-06-24] MEDS: buPROPion HCl 75 MG TABLET PO SCH (08:58)
[2018-06-24] MEDS: DORZOLAMIDE HCL 2% OPH SOLN 10 ML BTL OPR SCH ×2 (09:00→20:46)
--- NOTE | 2018-06-24 09:49 | History & Physical Bridge Note ---
Date of Service June 24, 2018 History & Physical Bridge Note I have examined the patient, reviewed the History & Physical and in the interval since the performance of the History & Physical I have noted the following changes of clinical significance: no changes noted
[2018-06-24 09:50] LABS: Estimated Average Glucose 131 mg/dl; Hemoglobin A1C 6.2 % (4.5-5.6)
[2018-06-24] MEDS ORDERED: SODIUM CHLORIDE 0.9% 250 ML IV PRN ×2 (10:14→17:15)
[2018-06-24] MEDS ORDERED: ACETAMINOPHEN 325 MG TAB PO ONE (10:16)
[2018-06-24] MEDS ORDERED: diphenhydrAMINE HCl 12.5 MG/5 ML UDC PO STA (10:18)
[2018-06-24] MEDS ORDERED: MIDAZOLAM HCL 1 MG/ML 2ML VIAL ONE (13:05)
[2018-06-24] MEDS ORDERED: fentaNYL citrate 100 MCG/2 ML VIAL ONE (13:05)
[2018-06-24] MEDS ORDERED: CLINDAMYCIN 900 MG in DEXTROSE 5% 50 ML IV SCH (14:00)
[2018-06-24] MEDS ORDERED: CLINDAMYCIN PHOS 300 MG/2 ML VIAL ONE (14:06)
[2018-06-24] MEDS ORDERED: DEXAMETHASONE SOD INJ 4 MG/ML VIAL ONE (14:06)
[2018-06-24] MEDS ORDERED: LIDOCAINE HCL 2% 2 ML VIAL/AMP(20MG/ML) INFIL ONE (14:06)
[2018-06-24] MEDS ORDERED: ROCURONIUM BROMIDE 10 MG/ML 5 ML VIAL ONE (14:06)
[2018-06-24] MEDS ORDERED: ONDANSETRON INJ 2 MG/ML 2 ML VIAL ONE (14:06)
[2018-06-24] MEDS ORDERED: PROPOFOL IV EMULSION 10 MG/ML 20 ML VIAL IV ONE (14:06)
[2018-06-24] MEDS ORDERED: SODIUM CHLORIDE 0.9% INJ 10 ML VIAL ONE (14:09)
[2018-06-24] MEDS ORDERED: fentaNYL citrate 100 MCG/2 ML VIAL IV PRN (14:38)
[2018-06-24] MEDS ORDERED: HYDROmorphone INJ 1 MG/ML SYRINGE IV PRN (14:38)
[2018-06-24] MEDS ORDERED: ATROPINE SULFATE 0.1 MG/ML 10ML SYR IV PRN (14:38)
[2018-06-24] MEDS ORDERED: ePHEDrine sulfate 50 MG/ML AMP IV PRN (14:38)
[2018-06-24] MEDS ORDERED: NEOSTIGMINE METHYLSULFATE 5 MG/5 ML SYR ONE (14:39)
[2018-06-24] MEDS ORDERED: GLYCOPYRROLATE 0.2 MG/ML VIAL ONE (14:39)
--- NOTE | 2018-06-24 14:56 | Fluoroscopy Report ---
FL chest 1V frontal CLINICAL HISTORY: NAVIGATIONAL BRONCH IN OR COMPARISON STUDY: FLUOROSCOPY TIME: 2. Minutes NUMBER OF FLUOROSCOPIC IMAGES: 2 FINDINGS: Image intensifier was utilized for navigational bronchoscopy. IMPRESSION: Image intensifier usage for navigational bronchoscopy. The above report was generated using voice recognition software. It may contain grammatical, syntax or spelling errors. Electronically signed by: Maxwell Irizarry M.D. 06/24/2018 2:54 PM
--- NOTE | 2018-06-24 14:58 | Hospitalist Progress Note ---
Date of Service June 24, 2018 Assessment & Plan (1) Hematoma: - CT chest showed left latissimus dorsi and left pectoralis major intramuscular hematoma following fall at home. - Hemoglobin decreased to 7.4 -- will transfuse 2 units pRBCs. - Monitor CBC q12hr. - Holding home Plavix/Aspirin - plan to restart Aspirin likely on POD#1 and continue to hold Plavix due to recurrent bleeding from ostomy site. (2) Fall: - Likely mechanical fall; no indication for cardiac work up. - PT/OT ordered - may require inpt rehab at discharge. (3) Metabolic acidosis: - In setting of acute kidney injury possibly related to dehydration. - Received NS at 100 cc/hr for 12 hours, will d/c in setting of 2 units pRBCs. - Repeat BMP is ordered this evening. (4) Left breast mass: - H/o lumpectomy x 2, most recently ~7 years ago. - Has hard left breast lump/mass with associated erythema. - Will need to follow up with breast oncologist in near future for evaluation. (5) Abnormal chest CT: - Two lesions noted in right lung concerning for malignancy. - S/p bronch today with biopsies pending. (6) Acute kidney injury: - Creatinine increased to 3.16, is slightly above baseline. - Received IV fluids for 12 hours starting at midnight, now discontinued as pt. is also receiving blood transfusion. - Repeat BMP is pending this afternoon/evening. (7) CKD (chronic kidney disease) stage 4, GFR 15-29 ml/min: - Renally dose all meds. (8) History of CVA (cerebrovascular accident): - Occurred in July 2017; has residual lower extremity weakness. - On Plavix and Aspirin at home -- pt. was taking Plavix intermittently due to bleeding from ostomy. - Held meds for procedure; will resume single agent aspirin likely on POD#1 and d/c Plavix. - Pt. has not been taking statin at home due to myalgias. (9) Type II diabetes mellitus: - Most recent A1C was 6.8 in August 2017; repeat A1C was 6.2 - SSI ordered - adjust as needed. - On Lantus 8 units qhs at home. (10) Hypertension: - Continue Metoprolol 12.5 mg BID; holding home Bumex 0.5 mg BID in setting of NELSON. - BP has been intermittently elevated -- pt. thinks this is related to BP cuff. (11) Rheumatoid arthritis: - Continue home Prednisone 5 mg daily. (12) Ulcerative colitis: - S/p ostomy placement. - Monitor as outpatient, continue home Prednisone. (13) Protein S deficiency: - Monitored as outpatient. (14) Deep venous thrombosis: - H/o DVT in past. - Holding anticoagulation therapy due to acute bleed, planned procedure. (15) Breast cancer: - Continue Arimidex as prescribed. - Will need follow up with breast oncologist due to left breast mass/erythema (see above) (16) Depression: - Continue Welbutrin as prescribed. (17) DVT prophylaxis: - SCDs; hold pharmacologic ppx due to procedure/acute bleed. Dispo: Med/surg; discharge pending improvement in H/H. Supervising Physician Co-Signing Physician Notes PA Supervision Note: I personally saw and examined the patient. I verified all delatorre points and agree with REBEKAH Vizcaino with the following exceptions and/or additions: No pain. Not lightheaded. Hgb down today and needs PRBC transfusion. Discussed risks, benefits, alternatives of PRBC transfusion with her and she consents to have a transfusion. Reports chronic left breast firmness and erythema Vitals reviewed NAD, AAOx3 RRR no mgr CTAB no wcr Ext no edema Left breast with divot and large area of firmness that is nontender in left UO quadrant,, mild erythema of breast in superior portion 78 yo female with a h/o breast CA, Protein S def, HTN, depression, DMII, h/o CVA, UC s/p colectomy, here with fall with traumatic hematoma and anemia of acute blood loss. Also incidentally noted to have large RML lung nodule and RUL smaller nodule suspicious for lung CA -transfuse 2 units today of pRBCs -check outpt records on appropriate f/u on breast CA Subjective Pt. is doing well. Does feel "woozy" -- pt. is describing feeling dizzy with movement. Denies nausea/vertigo. Has pain in back at site of hematoma. Denies SOB, chest pain, vomiting, abd pain, constipation. Pt. does have a hard lump in left breast -- states this is chronic for her. H/o two lumpectomys, currently on arimidex therapy. Also has erythema on left breast, also states this is chronic. Pt. will need to follow up with her breast surgeon/oncologist in future. Review of Systems Review of Systems: All systems reviewed & are unremarkable except as noted in HPI & below Constitutional: no fever, no chills, no fatigue, no weakness and no anorexia Respiratory: no cough, no dyspnea, no dyspnea on exertion and no wheezing Cardiovascular: + lightheadedness; no chest pain, no palpitations, no syncope and no edema Gastrointestinal: no abdominal pain, no nausea, no vomiting, no constipation and no diarrhea/loose stools Genitourinary: no difficulty urinating Musculoskeletal: + back pain; no joint pain Integumentary: no non-healing lesions Neurologic: + dizziness Allergy / Immunological: no rash Physical Exam Physical Exam: General: Resting comfortably in no apparent distress; A&OX3 HEENT: NC/AT; PERRLA with EOMI; Mercedes conjunctiva, MMM. Neck: Supple and nontender Cardiac: RRR w/o murmurs, gallops or rubs Lungs: CTA bilaterally Abdomen: Bowel normoactive X 4; Nontender to palpation Extremities: Warm. No edema present Neuro: No focal weakness Skin: No rash; hematoma noted on left latissimus dorsi and left pectoralis major area. Results & Data Vital Signs (Past 12 Hours) Vital Signs Temp Pulse Pulse Resp BP BP Pulse Ox 06/24/18 13:11 37 C 75 18 180/51 H 100 06/24/18 12:44 36.8 C 76 20 174/37 H 100 06/24/18 12:10 36.9 C 74 20 194/51 H 97 06/24/18 11:47 36.3 C L 85 18 171/66 H 06/24/18 07:14 36.4 C L 85 18 156/78 H 100 Laboratory Results 06/24/18 06/24/18 06/24/18 Range/Units 11:54 07:42 05:31 WBC (4.8-10.8) K/uL RBC (4.2-5.4) M/uL Hgb (12.0-16.0) g/dL Hct (37-47) % MCV (80-100) fL MCH (25-34) pg MCHC (32-36) g/dL RDW Std Deviation (36.4-46.3) fL RDW Coeff of Michelle (11.5-14.5) % Plt Count (130-400) K/uL MPV (7.4-10.4) fL Sodium (136-145) mmol/L Potassium (3.5-5.1) mmol/L Chloride (98-107) mmol/L Carbon Dioxide (21-32) mmol/L Anion Gap (3-11) BUN (7-18) mg/dl Creatinine (0.6-1.2) mg/dl Est Cr Clr Drug Dosing ml/min Est GFR ( Amer) Est GFR (Non-Af Amer) BUN/Creatinine Ratio (10-20) Glucose (70-99) mg/dl POC Glucose 150 H 157 H (70-99) Estimat Average Glucose 131 mg/dl Hemoglobin A1c 6.2 H (4.5-5.6) % Calcium (8.5-10.1) mg/dl Magnesium (1.8-2.4) mg/dl Blood Type Antibody Screen Crossmatch 06/24/18 06/24/18 06/23/18 Range/Units 05:31 05:31 23:10 WBC 10.74 (4.8-10.8) K/uL RBC 2.37 L (4.2-5.4) M/uL Hgb 7.4 L 7.1 L (12.0-16.0) g/dL Hct 22.6 L 21.0 L (37-47) % MCV 95.4 (80-100) fL MCH 31.2 (25-34) pg MCHC 32.7 (32-36) g/dL RDW Std Deviation 47.3 H (36.4-46.3) fL RDW Coeff of Michelle 13.6 (11.5-14.5) % Plt Count 188 (130-400) K/uL MPV 10.0 (7.4-10.4) fL Sodium 137 (136-145) mmol/L Potassium 4.1 (3.5-5.1) mmol/L Chloride 110 H (98-107) mmol/L Carbon Dioxide 19 L (21-32) mmol/L Anion Gap 8.0 (3-11) BUN 58 H (7-18) mg/dl Creatinine 3.16 H D (0.6-1.2) mg/dl Est Cr Clr Drug Dosing 15.7 ml/min Est GFR ( Amer) 15.3 Est GFR (Non-Af Amer) 13.2 BUN/Creatinine Ratio 18.5 (10-20) Glucose 150 H (70-99) mg/dl POC Glucose (70-99) Estimat Average Glucose mg/dl Hemoglobin A1c (4.5-5.6) % Calcium 8.7 (8.5-10.1) mg/dl Magnesium 2.0 (1.8-2.4) mg/dl Blood Type Antibody Screen Crossmatch 06/23/18 06/23/18 06/23/18 Range/Units 20:03 16:41 15:17 WBC (4.8-10.8) K/uL RBC (4.2-5.4) M/uL Hgb 7.7 L (12.0-16.0) g/dL Hct 22.7 L (37-47) % MCV (80-100) fL MCH (25-34) pg MCHC (32-36) g/dL RDW Std Deviation (36.4-46.3) fL RDW Coeff of Michelle (11.5-14.5) % Plt Count (130-400) K/uL MPV (7.4-10.4) fL Sodium (136-145) mmol/L Potassium (3.5-5.1) mmol/L Chloride (98-107) mmol/L Carbon Dioxide (21-32) mmol/L Anion Gap (3-11) BUN (7-18) mg/dl Creatinine (0.6-1.2) mg/dl Est Cr Clr Drug Dosing ml/min Est GFR ( Amer) Est GFR (Non-Af Amer) BUN/Creatinine Ratio (10-20) Glucose (70-99) mg/dl POC Glucose 217 H 182 H (70-99) Estimat Average Glucose mg/dl Hemoglobin A1c (4.5-5.6) % Calcium (8.5-10.1) mg/dl Magnesium (1.8-2.4) mg/dl Blood Type Antibody Screen Crossmatch 06/22/18 Range/Units 23:54 WBC (4.8-10.8) K/uL RBC (4.2-5.4) M/uL Hgb (12.0-16.0) g/dL Hct (37-47) % MCV (80-100) fL MCH (25-34) pg MCHC (32-36) g/dL RDW Std Deviation (36.4-46.3) fL RDW Coeff of Michelle (11.5-14.5) % Plt Count (130-400) K/uL MPV (7.4-10.4) fL Sodium (136-145) mmol/L Potassium (3.5-5.1) mmol/L Chloride (98-107) mmol/L Carbon Dioxide (21-32) mmol/L Anion Gap (3-11) BUN (7-18) mg/dl Creatinine (0.6-1.2) mg/dl Est Cr Clr Drug Dosing ml/min Est GFR ( Amer) Est GFR (Non-Af Amer) BUN/Creatinine Ratio (10-20) Glucose (70-99) mg/dl POC Glucose (70-99) Estimat Average Glucose mg/dl Hemoglobin A1c (4.5-5.6) % Calcium (8.5-10.1) mg/dl Magnesium (1.8-2.4) mg/dl Blood Type A Negative Antibody Screen NEGATIVE Crossmatch See Detail
--- NOTE | 2018-06-24 15:03 | Post Operative Brief Note ---
Immediate Post Op Note v1 Date of Surgery June 24, 2018 Pre & Post Diagnosis Operation Date: 06/24/18 12:30 Pre-Op Diagnosis: lung mass Post-Op Diagnosis: lung mass Procedure Operation Date: 06/24/18 12:30 Actual Procedures p Endobronchial Ultrasound - Loki Bhatt MD, FACS s and Navigational Bronchoscopy - Loki Bhatt MD, FACS Surgeon Loki Bhatt MD, FACS Substation Operator Automatic Jackelyn Estimated Blood Loss 5 Findings Consistent with Post-Op Diagnosis
--- NOTE | 2018-06-24 15:12 | XRay Report ---
XR chest 1V portable CLINICAL HISTORY: s/p FOB COMPARISON STUDY: 01/27/2018 FINDINGS: No evidence for pneumothorax. Central catheter remains in the superior vena cava. Diaphragm s smooth. Lungs are clear. Ununited proximal right humeral fracture considered old is noted. IMPRESSION: No acute process. No evidence for pneumothorax. The above report was generated using voice recognition software. It may contain grammatical, syntax or spelling errors. Electronically signed by: Maxwell Irizarry M.D. 06/24/2018 3:10 PM
--- NOTE | 2018-06-24 15:39 | Anesthesiology Progress Note ---
Date of Service June 24, 2018 Anesthesia Post Procedure Vital Signs Vital Signs: Temp Pulse Pulse Pulse Resp BP BP 06/24/18 15:35 71 18 06/24/18 15:25 71 20 06/24/18 15:15 72 15 06/24/18 15:05 97.2 F L 73 15 06/24/18 14:57 97.2 F L 78 16 06/24/18 13:11 98.6 F 75 18 180/51 H 06/24/18 12:44 98.2 F 76 20 174/37 H 06/24/18 12:10 98.4 F 74 20 194/51 H 06/24/18 11:47 97.3 F L 85 18 171/66 H 06/24/18 07:14 97.5 F L 85 18 06/23/18 22:41 98.4 F 84 18 143/71 H BP Pulse Ox 06/24/18 15:35 176/52 H 99 06/24/18 15:25 201/74 H 100 06/24/18 15:15 181/105 H 100 06/24/18 15:05 180/73 H 100 06/24/18 14:57 164/65 H 100 06/24/18 13:11 100 06/24/18 12:44 100 06/24/18 12:10 97 06/24/18 11:47 06/24/18 07:14 156/78 H 100 06/23/18 22:41 98 Pain Intensity Left Shoulder: Pain Intensity: 2 Left Back: Pain Intensity: 5 Head: Pain Intensity: 4 Notes Mental Status: alert / awake / arousable and participated in evaluation Patient Amnestic to Procedure: Yes Nausea / Vomiting: adequately controlled Pain: adequately controlled Airway Patency, RR, SpO2: stable & adequate BP & HR: stable & adequate Hydration State: stable & adequate Anesthetic Complications: no major complications apparent and Pt Satisfied with anesthetic care
[2018-06-24] MEDS: FERROUS SULFATE 325 MG TAB PO SCH (20:45)
[2018-06-24] MEDS: ANASTROZOLE 1 MG TAB PO SCH (20:46)
[2018-06-24] MEDS: CALCIUM 600MG + VIT D 400 IU TAB PO SCH (20:46)
[2018-06-24 21:43] LABS: Hematocrit (blood only) 26.9 % (37-47); Hemoglobin 8.8 g/dL (12.0-16.0)
[2018-06-24] MEDS ORDERED: HEPARIN 100 UNIT/ML 5ML FLUSH FLUSH SCH (21:45)
[2018-06-24 22:07] LABS: BUN Creatinine Ratio 17.8 (10-20); Calcium 8.2 mg/dl (8.5-10.1); Creatinine Clr Calc Pharmacy 16.1 ml/min; Est GFR (African American) 15.8; Est GFR (Non-African American) 13.6
[2018-06-25] MEDS ORDERED: HEPARIN 100 UNIT/ML 5ML FLUSH FLUSH PRN (05:28)
[2018-06-25 06:31] LABS: Hematocrit (blood only) 25.5 % (37-47); Hemoglobin 8.4 g/dL (12.0-16.0); Mean Corpuscular Hgb Conc 32.9 g/dL (32-36); Mean Corpuscular Volume 92.4 fL (80-100); Mean Platelet Volume 10.4 fL (7.4-10.4); Platelet Count 173 K/uL (130-400); RDW Coefficient of Variation 15.7 % (11.5-14.5); RDW Standard Deviation 53.2 fL (36.4-46.3); Red Blood Count 2.76 M/uL (4.2-5.4); White Blood Count 10.15 K/uL (4.8-10.8)
[2018-06-25 06:58] LABS: BUN Creatinine Ratio 18.1 (10-20); Calcium 8.2 mg/dl (8.5-10.1); Creatinine Clr Calc Pharmacy 16.3 ml/min; Est GFR (Non-African American) 13.8; Potassium 4.4 mmol/L (3.5-5.1)
[2018-06-25] MEDS: BRIMONIDINE TARTRATE 0.2% 5ML OPB SCH (08:25)
[2018-06-25] MEDS: ATORVASTATIN 40 MG TAB PO SCH (08:26)
[2018-06-25] MEDS: METOPROLOL TARTRATE 25 MG TAB PO SCH (08:26)
[2018-06-25] MEDS: predniSONE 5 MG TAB PO SCH (08:27)
[2018-06-25] MEDS: PANTOprazole 40 MG TAB PO SCH (08:27)
[2018-06-25] MEDS: DORZOLAMIDE HCL 2% OPH SOLN 10 ML BTL OPR SCH (08:27)
[2018-06-25] MEDS: BUDESONIDE/FORMOTEROL FUMARATE 80/4.5 60 PUFFS/INHALER INH SCH (08:27)
[2018-06-25] MEDS: buPROPion HCl 75 MG TABLET PO SCH (08:29)
[2018-06-25] MEDS: INSULIN ASPART 100 UNITS/ML 3 ML PEN SC SCH ×2 (08:30→12:23)
[2018-06-25] MEDS: ZAFIRLUKAST 20MG: NON-FORMULARY PATIENT'S OWN MED PO SCH (08:31)
[2018-06-25] MEDS ORDERED: ASPIRIN 81 MG ECTAB PO SCH (09:15)
--- NOTE | 2018-06-25 10:21 | Progress Note ---
DATE: 06/25/2018 Ms. Elise appears stable today. She states that her breathing is "fine." Her pain is better. Her x-ray yesterday looked quite good. I did a thorough lymph node evaluation with endobronchial ultrasound yesterday and we got good lymph node samples, but do not see evidence of cancer on her rapid onsite evaluation. I did biopsy the 2 lung masses also. I am more sure we are dealing with a right middle lobe nonsmall cell lung cancer. If the lymph nodes are negative, we are going to set her up to offer her a lobectomy. In addition, I may wedge out this upper lobe mass. It is possible we are dealing with 2 primaries. We will set her up after a PET scan and pulmonary function studies were done. I have discussed this with Dr. Jha and I believe she can be discharged today.
[2018-06-25 14:16] LABS: Hematocrit (blood only) 27.2 % (37-47)
--- NOTE | 2018-06-25 14:37 | Discharge Summary ---
Date of Service June 25, 2018 Admission HPI Per Admitting Provider 78 y/o F Hx CVA 08/16 with residual LE weakness, UC - colectomy/ileostomy, RA, DM II, HTN, CKD IV, breast CA, history of protein S deficiency and DVT. The pt presents following a fall onto her L side where she sustained trauma to her L lateral chest. A CT of the chest obtained in the ER demonstrated L latissimus dorsi and L pectoralis major intramuscular hematomas. Initial labs are notable for a Hb of 9.1 which was 11.7 earlier in the day. She reports being slightly lightheaded and denies anterior CP or SOB. She has not exhibited any hemodynamic instability. Incidentally reported on her CT are a 2.7 cm focal irregular right middle lobe nodule and an 8 mm ground glass nodule within the right lung apex which are both suspicious for a primary bronchogenic malignancy. She was not previously aware of these findings. Admission Exam Per Admitting Provider General: AAO x 3, no distress ENT: No erythema or exudates, no thrush Eyes: ANDRIA, EOMI Head and neck: Normocephalic, atraumatic, No JVD, neck is supple. Chest/heart: Nontender, S1,2, RRR, no murmurs, no gallops Lungs: CTAB, no wheezing or crackles Abdomen: Nontender, nondistended, BS+ Neuro: AAO x 3, speech is clear - no acute deficits Musculoskeletal: There is a large hematoma pooling in her L lat mid back below the ribs Skin: No acute rashes or ulcers Extremities: No clubbing, cyanosis - minimal edema Principal Diagnosis Chest Hematoma, Acute blood loss anemia, Fall, Pulmonary Nodule Discharge Exam General: Resting comfortably in no apparent distress; A&OX3 HEENT: NC/AT; PERRLA with EOMI; Felton conjunctiva, MMM. Neck: Supple and nontender Cardiac: RRR Lungs: CTA bilaterally Abdomen: Bowel normoactive X 4; Nontender to palpation Extremities: Warm. No edema present Neuro: No focal weakness Skin: No rash; hematoma noted on left latissimus dorsi and left pectoralis major area. Breast: Hard mass palpated in outer upper quadrant of left breast surrounding previous incision site; mild erythema noted surrounding areola region. Discharge Data Allergies Allergy/AdvReac Type Severity Reaction Status Date / Time Bactrim Allergy Severe dizzy,dyseq Verified 10/26/17 14:59 uilibrium bee venom protein (honey bee) Allergy Severe ANAPHYLAXIS Verified 06/22/18 18:09 cefaclor Allergy Severe stiff and Verified 06/22/18 18:09 sore muscles-PT DENIES lisinopril Allergy Severe tongue Verified 06/22/18 18:09 swelling diltiazem Allergy Intermediate rash Verified 06/22/18 18:09 Penicillins Allergy Mild RASH Verified 06/22/18 18:09 tetracycline Allergy Mild UNK-PT Verified 06/22/18 18:09 DENIES amoxicillin Allergy Unknown RASH Verified 06/22/18 18:09 baclofen Allergy Unknown ? Verified 06/22/18 18:09 cefuroxime Allergy Unknown TAST Verified 06/22/18 18:09 clavulanic acid Allergy Unknown ITCHING Verified 06/22/18 18:09 levofloxacin Allergy Unknown NAUSEA, Verified 06/22/18 18:09 DIZZINESS alendronate sodium AdvReac Intermediate FELT SICK Verified 06/22/18 18:09 Cipro AdvReac Intermediate LEGS ARMS Verified 10/26/17 14:59 STIFF, PAINFUL ciprofloxacin AdvReac Intermediate LEGS ARMS Verified 06/22/18 18:09 STIFF, PAINFUL doxycycline AdvReac Intermediate nausea and Verified 06/22/18 18:09 vomiting metformin AdvReac Intermediate CAUSED Verified 06/22/18 18:09 [employer] LACTIC ACID LEVELS tramadol AdvReac Intermediate DIZZINESS Verified 06/22/18 18:09 adhesive AdvReac Mild redness Verified 06/22/18 18:09 mercaptopurine AdvReac Mild MADE HER Verified 06/22/18 18:09 VERY ILL olmesartan AdvReac Mild HEADACHE Verified 06/22/18 18:09 Sulfa (Sulfonamide AdvReac Mild CAUSED Verified 06/22/18 18:09 Antibiotics) DIZZINESS sulfamethoxazole AdvReac Mild CAUSED Verified 06/22/18 18:09 DIZZINESS trimethoprim AdvReac Mild BACTRIM Verified 06/22/18 18:09 CAUSED DIZZINESS aspirin AdvReac Unknown CAUSES Verified 06/22/18 18:09 BRUISING Consultations 06/22/18 20:03 ED Decision to Admit Stat 06/22/18 23:42 Consult Thoracic Surgery Routine Procedures Performed Operation Date: 06/24/18 12:30 Actual Procedures p Endobronchial Ultrasound - Loki Bhatt MD, FACS s and Navigational Bronchoscopy - Loki Bhatt MD, FACS Ordered Studies 06/22/18 17:38 CT abd pelvis wo con Stat CT cervical spine wo con Stat CT chest wo con Stat CT head/brain wo con Stat 06/24/18 12:30 FL bronch superdimension Routine FL chest 1V frontal Routine CXR 06/24/18 Hospital Course (1) Hematoma: CT chest showed left latissimus dorsi and left pectoralis major intramuscular hematoma following fall at home. Hemoglobin trended down in setting of bleed -- received 2 units pRBCs for hgb 7.4 on 06/24/18. H/H remained stable post transfusion. Home Plavix/Aspirin was held -- will resume aspirin 81 mg daily following procedure and discontinue plavix due to frequent bleeding from ostomy site. Script was provided for lab work to monitor H/H on Mon or Tues. (2) Fall: Likely mechanical fall; no indication for cardiac work up. Was ambulating well, did not require ongoing therapy. (3) Abnormal chest CT: Two lesions noted in right lung concerning for malignancy. S/p bronch with biopsies on 06/24. Pathology is pending. Will need f/u with Dr. Bhatt, PET scan and outpt PFTs. (4) CKD (chronic kidney disease) stage 4, GFR 15-29 ml/min: Renally dosed all meds. (5) History of CVA (cerebrovascular accident): Occurred in July 2017; has residual lower extremity weakness. Was on Plavix/Aspirin at home. Pt. was not taking Plavix regularly due to bleeding from ostomy site. Meds were held for procedure and for bleeding in hematoma. She resumed Aspirin 81 mg daily on POD#1 following bronch. Will d/c Plavix. Pt. is not taking statin at home due to myalgias, will also d/c this med and will need to discuss with PCP. (6) Type II diabetes mellitus: Most recent A1C was 6.8 in August 2017; repeat A1C was 6.2. SSI was ordered. Will resume home Lantus at discharge. (7) Hypertension: Continued Metoprolol 12.5 mg BID. Pt. does not take Bumex scheduled at home -- will delete med from list. (8) Rheumatoid arthritis: Continued home Prednisone 5 mg daily. (9) Ulcerative colitis: S/p ostomy placement. Continued home Prednisone. (10) Protein S deficiency: Monitored as outpatient. (11) Deep venous thrombosis: H/o DVT in past following first diagnosis of breast cancer. Held ppx for bronch. (12) Breast cancer: Continued Arimidex as prescribed. Will need follow up with breast oncologist due to left breast mass/erythema which is chronic as per aptient. She is overdue for her annual mammogram and she is aware of this. (13) Depression: Continued Wellbutrin as prescribed. (14) Acute blood loss anemia: secondary to large hematoma from trauma while on ASA and Plavix. Hgb dropped to 7.4 and required 2 units PRBCs transfused Remainsed stable -follow CBC as outpt -increase FeSO4 to bid upon dc (15) DVT prophylaxis: SCDs; held pharmacologic ppx due to procedure/acute bleed. Pt. was stable for discharge to home on 06/25/18. Total Time Total Time Spent Total Time Spent (In Minutes): >30 minutes Total Time Includes: Examination of the Patient, Discharge Planning, Medication Reconciliation, Communication With Other Providers and Other Discharge Plan Discharge Items Patient Disposition: Home - Self-Care Reason For Visit: FALL,CHEST HEMATOMA AND ANEMIA Discharge Diagnosis: Chest Hematoma, Anemia, Pulmonary Nodules Condition: Good Discharge Goals: Decrease discomfort, Diagnostic testing, Improve disease control, Improve nutritional status, Prevent disease and Therapeutic intervention Activity: As commented below Exercise/Sports: Gradually increase as tolerated Non-emergency contact: Primary Care Provider and Surgeon Call non-emergency contact if: you have any medication questions, your symptoms worsen, your pain is not controlled, your pain is worsening, your pain is unusual for you, your pain is concerning for you and you have a fever Follow-up/Referrals: Se Tovar MD [Primary Care Provider] - Diet: Regular Other Ambulatory Orders: Complete Blood Count no Diff (Timed) Timeframe: 2 Days Location: Determined by Patient Ordered By: Coleen Sherwood Provider Instructions: 1. Chest hematoma in setting of recent fall * Please continue Aspirin 81 mg daily as prescribed; Plavix has been discontinued. * A script was provided for lab work -- please have lab work drawn on Wednesday (06/27) or Wednesday (06/28) to monitor hemoglobin/hematocrit. * Results of labs will be faxed to your primary care provider. * Please increase ferrous sulfate to twice daily dosing due to anemia. You may require a stool softener if you develop constipation after increasing the iron supplement. 2. Pulmonary nodules * Pathology is pending from lung biopsies. * You will need to follow up with Dr. Bhatt as an outpatient to discuss results. * You will also need outpatient pulmonary function tests and PET scan. * An appointment will be scheduled with Dr. Bhatt. 3. Left breast mass * Please schedule a follow up with Dr. Ibarra for evaluation. 4. Please follow up with your primary care provider in 1-2 weeks to discuss this hospital admission. Prescriptions: Continued bupropion HCl 75 mg tablet 225 mg PO QAM RF: 0 brimonidine 0.2 % drops 1 drp OPB BID RF: 0 dorzolamide 2 % drops 1 drp OPR BID RF: 0 anastrozole 1 mg Tablet 1 mg PO QPM RF: 0 aspirin [Aspirin Low Dose] 81 mg Tablet,Delayed Release (Dr/Ec) 81 mg PO QPM RF: 0 bupropion HCl 75 mg Tablet 150 mg PO QPM RF: 0 multivitamin with minerals Tablet 1 tab PO QAM RF: 0 albuterol sulfate [Ventolin HFA] 90 mcg/actuation Hfa Aerosol Inhaler 2 - 4 puff INHALATION QID PRN (Reason: Shortness Of Breath Or Wheezing) RF: 0 cholecalciferol (vitamin D3) 5,000 unit Capsule 5,000 unit PO QAM RF: 0 metoprolol tartrate 25 mg Tablet 12.5 mg PO BID RF: 0 calcium carbonate-vitamin D3 [Os-Conrad 500 + D3] 500 mg(1,250mg) -200 unit Tablet 1 tab PO QPM RF: 0 Symbicort 80-4.5 mcg/actuation Hfa Aerosol Inhaler 2 puff INHALATION BID RF: 0 Lantus Solostar U-100 Insulin 100 unit/mL (3 mL) Insulin Pen 8 unit SUBCUT HS RF: 0 prednisone 5 mg Tablet 5 mg PO QAM RF: 0 pantoprazole 40 mg Tablet,Delayed Release (Dr/Ec) 40 mg PO QAM RF: 0 zafirlukast [Accolate] 20 mg Tablet 20 mg PO Q12H RF: 0 Changed ferrous sulfate 325 mg (65 mg iron) Tablet 325 mg PO BID Qty: 0 RF: 0 Discontinued atorvastatin 40 mg tablet 40 mg PO UD RF: 0 clopidogrel 75 mg tablet 75 mg PO UD RF: 0 bumetanide 0.5 mg tablet 0.5 mg PO BID RF: 0 Stand-Alone Forms: [facility] Discharge Orders: Discharge Order (Routine); Ordered 06/25/18 Ordered By: Coleen Vizcaino Admission Data Admit Date/Time: 06/23/18 15:42 Attending Provider: Carole Jha Admit Provider: Eugene Vogt Primary Care Provider: Se Tovar Other Providers: Loki Bhatt ; Eugene Vogt Service: Medical Other Interventions: Discharge Summary Assessment (RN) Last Done: 06/25/18 14:19 Pending Studies at Discharge: Yes Studies:: Pathology from lung biopsy on 06/24/18. DC Date/Time DO NOT enter until pt leaves facility: 06/25/18 16:19 Supervising Physician Co-Signing Physician Notes PA Supervision Note: I personally saw and examined the patient. I verified all delatorre points and agree with REBEKAH Vizcaino with the following exceptions and/or additions: Pt doing well, no pain at hematoma site, no cough or hemoptysis, no chest pain or SOB Vitals reviewed NAD, AAOx3 RRR no mgr CTAB no wcr Ext no edema 78 yo female with a h/o breast CA, Protein S def, HTN, depression, DMII, h/o CVA, UC s/p colectomy, here with fall with traumatic hematoma and anemia of acute blood loss. Also incidentally noted to have large RML lung nodule and RUL smaller nodule suspicious for lung CA -dc to home -f/u on pathology results with Dr. Bhatt and will need PFTs and PET scan-Dr. Bhatt to arrange this
[2018-06-25] MEDS ORDERED: buPROPion HCl 75 MG TABLET PO SCH (16:00)
--- NOTE | 2018-06-27 15:42 | Operative Report ---
DATE OF OPERATION: 06/24/2018 PREOPERATIVE DIAGNOSES: 1. Mass right middle lobe, right upper lobe. 2. Mild mediastinal adenopathy. POSTOPERATIVE DIAGNOSES: 1. Mass right middle lobe, right upper lobe. 2. Mild mediastinal adenopathy. PROCEDURE: 1. Endobronchial ultrasound and biopsy. 2. Navigational bronchoscopy with biopsy. SURGEON: Dr. Bhatt. STAFF ASSISTANT: Wilfredo Hayden, registered respiratory therapist. ANESTHESIA: General anesthesia, endotracheal intubation. INDICATION FOR PROCEDURE AND FINDINGS: This is a very nice 78-year-old female who fell at home and fractured her ribs and had hematoma of her chest wall. She presented and the CT scan showed she had a spiculated lesion in her right middle lobe that certainly appeared malignant. She has a much smaller 8 mm lesion in her medial right upper lobe. She has some mild mediastinal adenopathy. After a long discussion in the hospital with the patient and her family, we elected to proceed with endobronchial ultrasound and a navigational bronchoscopy while she is here. I explained to her this is simply part of her workup. She will require a PET scan and full pulmonary function studies for us to determine whether we would offer her any type of intervention. On 06/24/2018, the patient underwent uncomplicated intubation and endobronchial ultrasound. I biopsied multiple lymph node stations as well as both the right middle lobe and right upper lobe masses. She tolerated this well without evidence of pneumothorax postoperatively. DESCRIPTION OF PROCEDURE: The patient was brought to Operating Room and laid in supine position. General anesthesia induced and endotracheal intubation was performed with single lumen tube. After appropriate timeout had been called and the patient was given prophylactic antibiotics, an endobronchial ultrasound scope was placed. Starting on the left side, I started off on the left level 11 side and biopsied this several times with our transbronchial biopsy needle. I then moved up and under ultrasound guidance, biopsy the left level 10 node. Flipping the scope around, I then biopsied the level 7 node from both the right and the left side. Moving out, I then biopsied the right level 11 node as well as the right level 10 node. Coming back up, we did multiple biopsies of the right level 4 node as well as a level 2 node. Satisfied we got lymph node tissue from each of these 7 lymph node stations. We then removed the endobronchial ultrasound scope. Upon placing the fiberoptic scope, I closely inspected all the airways out to the tertiary bronchi. I did not see any abnormalities in the middle lobe bronchus, the upper lobe bronchus or the lower lobe bronchi. Likewise on the left, we got to the lingular and superior aspect of the left upper lobe bronchus as well as the lower lobe bronchi. There was no sputum. There were no endobronchial lesions. We had very little in the way of bleeding from our endobronchial ultrasound biopsies. We then registered the airways and then our first target was in the upper lobe. This is a small 8 mm nodule which was not completely solid. By the navigational probe, it appeared that we got out to this mass; however, endobronchial ultrasound did not show this very well. We repositioned this several times. I then did brushes and a washing of this area; however, I did not do any needle biopsies as we were close to the periphery and it was a small nodule, I was not convinced we were in it. We then pulled out and then we were guided out to the middle lobe mass, which we easily navigated to. I did several brushes with rapid on site evaluation as well as fine needle aspiration and then forceps biopsy with touch preps. We then did a washing of this also for cytology. We had very little in the way of bleeding and we irrigated out both the upper lobe and the middle lobe bronchi until they were clear. I slowly removed the bronchoscope closely inspecting the airways and did not see any abnormalities or bleeding. The patient was extubated in the room and tolerated it well with negligible blood loss. She was transported to the postanesthesia care unit in stable condition. I attest to the content of the Intraoperative Record and any orders documented therein. Any exception s are noted below.
--- OUTSIDE RECORDS SUMMARY | 2018-06-27 20:50 | External Medical Summary | Continuity of Care Document ---
:1940 Author Name Rebekah Chandra, Provider Address Unavailable Unavailable , Care Team Providers Name Role Phone Wilfredo Hern[place] [email or web address] [place] NUNN Unavailable [email or web address] Mina Reyes [email or web address] Mahsa TOVAR Unavailable Unavailable Unavailable Unavailable Unavailable Assessments Assessed Problems:Lung mass Problems Iron deficiency anemia (280.9) (D50.9) Mammogram abnormal (793.80) (R92.8) Ulcerative colitis (556.9) (K51.90) Adenocarcinoma of breast (174.9) (C50.919) Hypothyroidism (244.9) (E03.9) Chronic sinusitis (473.9) (J32.9) Obesity (278.00) (E66.9) Fatigue (780.79) (R53.83) Depression (311) (F32.9) Laryngopharyngeal reflux (478.79) (K21.9) Hypertrophy of nasal turbinates (478.0) (J34.3) Glaucoma of both eyes (365.9) (H40.9) Breast cancer (174.9) (C50.919) Acquired deviated nasal septum (470) (J34.2) Eustachian tube dysfunction (381.81) (H69.80) Right chronic serous otitis media (381.10) (H65.21) Diabetes mellitus (250.00) (E11.9) Cough (786.2) (R05) Dysphonia (784.42) (R49.0) Asthma (493.90) (J45.909) Hyponatremia (276.1) (E87.1) Flu vaccine need (V04.81) (Z23) Acute cystitis (595.0) (N30.00) Chronic kidney disease (CKD), stage IV (severe) (585.4) (N18 .4) Hypertension (401.9) (I10) Proteinuria (791.0) (R80.9) Secondary hyperparathyroidism (588.81) (N25.81) Lung mass (786.6) (R91.8) Allergies and Adverse Reactions Amoxicillin CAPS (Allergy) Bactrim DS TABS (Allergy) Bactrim TABS (Allergy) Benicar TABS (Allergy) Reaction: Headach e Ceftin TABS (Allergy) Reaction: Other Cipro TABS (Allergy) dilTIAZem HCl TABS (Allergy) Reaction: R jeffy Doxycycline Hyclate TABS (Allergy) React ion: Vomiting Glucophage TABS (Allergy) Lisinopril TABS (Allergy) Reaction: Swel ling, Cough Mercaptopurine TABS (Allergy) metFORMIN HCl TABS (Allergy) Reaction: O ther Bee sting (Allergy) Medications Alphagan P 0.15 % Ophthalmic Solution; I NSTILL 1 DROP INTO BOTH EYES TWICE DAILY. Refills: 0 Multivitamins CAPS; TAKE 1 CAPSULE DAILY. Refills: 0 Azopt 1 % Ophthalmic Suspension; 1 DROP RIGHT EYE TWICE MALISSA Y Refills: 0 Vitamin D TABS; Take 1 tablet twice daily Refills: 0 predniSONE 5 MG Oral Tablet; take 1 tablet by mouth on ce daily Prateek Reyes Refills: 0 Pantoprazole Sodium 40 MG Oral Tablet Delayed Release; TAKE 1 TABLET DAILY. Prateek Herndon Start: 13-Aug-2009 Quantity: 90 Refills: 3 Zafirlukast 20 MG Oral Tablet; Take 1 tablet twice a day Prateek Issa Start: 08-Jun-2018 Quantity: 180 Refills: 3 Symbicort 80-4.5 MCG/ACT Inhalation Aero juvencio; INHALE 2 PUFFS TWICE DAILY. RINSE MOUTH AFTER USE. Prateek Herndon Start: 18-Sep-2011 Quantity: 3 6.9 GM Inhaler Refills: 3 Aspirin 81 MG TABS; TAKE 1 TABLET DAILY. Refills: 0 Arimidex TABS; TAKE 1 TABLET DAILY. Refills: 0 Iron 325 (65 Fe) MG Oral Tablet; TAKE 1 TABLET DAILY DIRE CTED. Refills: 0 Ventolin HFA 108 (90 Base) MCG/ACT Inhal ation Aerosol Solution; INHALE 2 PUFFS Every 4 hours PRN Prateek Herndon Start: 21-Mar-2014 Quantity: 3 18 GM Inhaler Refills: 3 Fluticasone Propionate 50 MCG/ACT Nasal Suspension; USE 1 TO 2 SPRAYS IN EACH NOSTRIL ONCE DAILY. Prateek Herndon Start: 25-Mar-2015 Quantity: 3 Refills: 3 Lantus SoloStar 100 UNIT/ML Subcutaneous Solution Pen-injector; INJECT 10 UNIT Daily Start: 25-Sep-2015 Refills: 0 buPROPion HCl - 75 MG Oral Tablet; TAKE 2 TABLET TWICE MALISSA Y Refills: 0 Bumex 0.5 MG Oral Tablet; Take 1 tablet daily as neede d for fluid retention Prateek Reyes Refills: 0 Metoprolol Tartrate 25 MG Oral Tablet; TAKE 1/2 TABLET BY [facility] TWICE DAILY Refills: 0 Clopidogrel Bisulfate 75 MG Oral Tablet; take 1 tablet by mouth every other day 30 Tablet Bottle Refills: 0 Procedures Spirometry- Pre&Post, Lung Vol/CO (60mins) Date: 27-Jun-2018 PET/CT Skull-Thigh Outpatient Date: 27-Jun-2018 History of Hernia Repair Status: Complet ed History of Breast Surgery Lumpectomy Sta tus: Completed History of Total Abdominal Colectomy Sta tus: Completed History of Cataract Surgery Status: Comp leted Immunizations Influenza On: Dec-2010 Fluzone High-Dose Intramuscular Suspension On: 02-Feb-2018 13 :45 Lot #: [id number], [employer] Family History Father Family history of Cancer Status: Active Mother Family history of Cancer Status: Active Brother Family history of Cancer Status: Active Sister Family history of Malignant Melanoma Of The Skin (V16.8) Sta tus: Active Unknown Family Member Family history of Diabetes Mellitus (V18.0) Status: Active Comments: Family History Family history of Heart Disease (V17.49) Status: Active Comments: Family History Family history of Asthma (V17.5) Status: Active Comment s: Family History Social History - Smoking Status Unknown if ever smoked Former smoker Plan of Treatment Planned Observations PET/CT Skull-Thigh Outpatient Start: 27-Jun-2018 Intent Spirometry- Pre&Post, Lung Vol/CO (60mins) Start: 9 Intent Results CBC No Diff Laboratory: [facility] [address] [facility] [address] tel: 22-Jun-2018 11:17 WBC 12.19 K/uL (above high Range: 4.8-1 0.8 K/uL threshold) RBC 3.61 {M/uL} (below low Range: 4.2-5 .4 M/uL threshold) HEMOGLOBIN 11.5 g/dL (below low Range: 12.0-16.0 g/dL threshold) HEMATOCRIT 35.0 % (below low Range: 37- 47 % threshold) MCV 97.0 fL Range: 80-100 fL MCH 31.9 pg Range: 25-34 pg MEAN CORPUSCULAR HGB CONC 32.9 Range: 3 2-36 g/dL g/dL RED CELL DISTRIBUTION WIDTH SD Range: 3 6.4-46.3 fL 47.9 fL (above high threshold) RED CELL DISTRIBUTION WIDTH CV Range: 1 1.5-14.5 % 13.5 % PLATELET COUNT 186 K/uL Range: 130-400 K/uL MEAN PLATELET VOLUME 10.2 fL Range: 7.4 -10.4 fL Renal Panel Laboratory: [facility] [address] [facility] [address] tel: 22-Jun-2018 11:17 SODIUM 141 mmol/L Range: 136-145 mmol /L POTASSIUM 4.4 mmol/L Range: 3.5-5.1 mmo l/L CHLORIDE 111 mmol/L (above high Range: 98-107 mmol/L threshold) CARBON DIOXIDE 22 mmol/L Range: 21-32 m mol/L ANION GAP 8.0 Range: 3-11 BLOOD UREA NITROGEN 51 mg/dl Range: 7-1 8 mg/dl (above high threshold) CREATININE 2.82 mg/dl (above high Range: 0.6-1.2 mg/dl threshold) Estimated GFR () Comment s: Units: ml/min per 17.6 1.73 meters squaredT he estimated GFR (CKD-E PI equation) has not be en validatedfor inpatie nt settings and may not be an accurate reflectiono f renal function in critical ly ill patients or those withrapidly changing renal function (e.g. NELSON). Estimated GFR (Non- Comments: Uni ts: ml/min per Ivorian) 15.2 1.73 meters squaredT he estimated GFR (CKD-E PI equation) has not be en validatedfor inpatie nt settings and may not be an accurate reflectiono f renal function in critical ly ill patients or those withrapidly changing renal function (e.g. NELSON). BUN/CREATININE RATIO 18.0 Range: 10-20 GLUCOSE 112 mg/dl (above high Range: 70 -99 mg/dl threshold) CALCIUM 9.5 mg/dl Range: 8.5-10.1 mg/ dl PHOSPHORUS 3.9 mg/dl Range: 2.5-4.9 mg/ dl ALBUMIN 3.2 {gm/dl} (below low Range: 3 .4-5.0 gm/dl threshold) Hemoglobin (Pending) Laboratory: [facility] [address] Comme nts: Drawn from CVAD . [facility]. [facility] per protoc ol. 10 cc [id number] tel: discard.Drawn from CVAD per protocol. 10 cc disc joselito. 22-Jun-2018 23:54 HEMOGLOBIN 8.2 g/dL (below low Range: 1 2.0-16.0 g/dL threshold) BLOOD BANK HOLD TUBE Laboratory: [facility] [address] (Pending) [address] [email or web address] [facility]. [facility] [address] tel: 22-Jun-2018 23:54 BLOOD BANK HOLD TUBE Run: 06/23/18 0014 [facility] [place] Pathology Report Name : HOMER MACEDO Age/Sex: 78/F Location: 4EAcct: [id number] Unit: [id number] Status: ADM INOo Room/Bed: B884-1Ljm: 06/22/18 Disch: Att Dr: Eugene Vogt M.D. Spec: [id number] Collected: 06/22/18eceived: 06/22/[address]: Eugene Vogt M.D.Copy To: Loki Bhatt MDAdams, Jonathan D., M.D.Self, ReferredOrd Prods: (NO ORDERED PRODUCTS)Ord Tests: (NO REPORTABLE TESTS)Comments: Drawn from CVAD per protocol. [address] Result Flag Reference Site <No reportable results> Te sts: Date Time Order Change Action User06/22/18 9663 Blood Bank Hold 1 NEW 55056 END OF REPORT Hemoglobin (Pending) Laboratory: [facility] 1800 Comme nts: Drawn from CVAD g4interactive. [facility] per protoc ol. 10 cc [id number] tel: discard. 23-Jun-2018 8:02 HEMOGLOBIN 8.4 g/dL (below low Range: 1 2.0-16.0 g/dL threshold) Basic Metabolic Panel Laboratory: [facility] 1800 Comm ents: Drawn from CVAD (Pending) g4interactive. [facility] per protoc ol. 10 cc [id number] tel: discard. 23-Jun-2018 8:04 SODIUM 141 mmol/L Range: 136-145 mmol /L POTASSIUM 4.1 mmol/L Range: 3.5-5.1 mmo l/L CHLORIDE 113 mmol/L (above high Range: 98-107 mmol/L threshold) CARBON DIOXIDE 20 mmol/L (below Range: 21-32 mmol/L low threshold) ANION GAP 8.0 Range: 3-11 BLOOD UREA NITROGEN 56 mg/dl Range: 7-1 8 mg/dl (above high threshold) CREATININE 2.70 mg/dl (above high Range: 0.6-1.2 mg/dl threshold) Estimated Creatinine Clearance Range: m l/min 18.4 ml/min Comments: Est. Creat inine Clearance (Mod Cockcroft-Gault) for pharmacydosing purposes. Estimated GFR () Comment s: Units: ml/min per 18.5 1.73 meters squaredT marian estimated GFR (CKD-E PI equation) has not be en validatedfor inpatie nt settings and may not be an accurate reflectiono f renal function in critical ly ill patients or those withrapidly changing renal function (e.g. NELSON). Estimated GFR (Non- Comments: Uni ts: ml/min per Ivorian) 16.0 1.73 meters squaredT he estimated GFR (CKD-E PI equation) has not be en validatedfor inpatie nt settings and may not be an accurate reflectiono f renal function in critical ly ill patients or those withrapidly changing renal function (e.g. NELSON). BUN/CREATININE RATIO 20.9 (above Range: 10-20 high threshold) GLUCOSE 127 mg/dl (above high Range: 70 -99 mg/dl threshold) CALCIUM 8.8 mg/dl Range: 8.5-10.1 mg/ dl Magnesium (Pending) Laboratory: [facility] 1800 Commen ts: Drawn from CVAD [address] [place] per protoc ol. 10 cc [id number] tel: discard. 23-Jun-2018 8:04 MAGNESIUM 2.1 mg/dl Range: 1.8-2.4 mg/d l Hemoglobin and Laboratory: [facility] 1800 Commen ts: Drawn from CVAD Hematocrit (Pending) [address] [place] per viola col. 10 cc [id number] tel: discard. 23-Jun-2018 15:17 HEMOGLOBIN 7.7 g/dL (below low Range: 1 2.0-16.0 g/dL threshold) HEMATOCRIT 22.7 % (below low Range: 37- 47 % threshold) X-ray Chest, Pa only Laboratory: [facility] Diagnostic (Pending) Imaging [address] [place] 24-Jun-2018 14:53 CHEST 1 VW FRONT-NOT PORTABLE [facility] [place] [place] [phone] Fluoroscopy Report Patient: HOMER MACEDO Admit Date: 06/23/18 MR#: [id number] Address1: [address] Acct ID:[id number] Address2: Date: 1940 [facility] Zip: [place] [address] Age: 78 Location: 4E Sex: F Room/Bed: [facility] Att Phy: Carole Jha MD Diagnosis: F ALL,CHEST HEMATOMA AND ANEMIA Chasity Phy: Se Tovar M.D. Service Date : 06/24/18 Fam Phy: Interpreting Phy: Maxwell Irizarry MD Admit Phy: Eugene Vogt M.D. Ordering Phy: Loki Bhatt MD cc: FL chest 1V frontal CLINICAL HISTORY: NAVIGATIONAL BRONCH IN OR COMPARISON STUDY: FLUOROSCOPY TIME: 2. Minutes NUMBER OF FLUOROSCOPIC IMAGES: 2 FINDINGS: Image intensifier was utilized for navigational bronchoscopy. IMPRESSION: Image intensifier usage for navigational bronchoscopy. The above report was generated using voice recognition software. It may contain grammatical, syntax or spelling errors. Electronically signed by: Maxwell Irizarry M.D. 06/24/2018 2:54 PM Dictated: 06/24/18 1453 Transcribed: 06/24/18 1453 X-Ray Chest 1 View Laboratory: [facility] Diagnostic Portable (Pending) Imaging [address] [facility] 24-Jun-2018 15:10 X-Ray Chest 1 VW Portable (CXR1P) [place], [place] [phone] XRay Report Patient: HOMER MACEDO Admit Date: 06/23/18 MR#: [id number] Address1: [address] [place] [address] Acct ID:[id number] Address2: Date: 1940 [facility] Zip: [place] [address] Age: 78 Location: Sex: F Room/Bed: [facility] Att Phy: Carole Jha MD Diagnosis: F ALL,CHEST HEMATOMA AND ANEMIA Chasity Phy: Se Tovar M.D. Service Date : 06/24/18 Fam Phy: Interpreting Phy: Maxwell Irizarry MD Admit Phy: Eugene Vogt M.D. Ordering Phy: Ben Palma PA-C cc: XR chest 1V portable CLINICAL HISTORY: s/p FOB COMPARISON STUDY: 01/27/2018 FINDINGS: No evidence for pneumothorax. Central catheter remains in the superior vena cava. Diaphragms smooth. Lungs are clear. Ununited proximal right humeral fracture considered old is noted. IMPRESSION: No acute process. No evidence for pneumothorax. The above report was generated using voice recognition software. It may contain grammatical, syntax or spelling errors. Electronically signed by: Maxwell Irizarry M.D. 06/24/2018 3:10 PM Dictated: 06/24/18 1510 Transcribed: 06/24/18 1510 Encounters Appointment; Shant Reyes M.D. 19-May-2018 13:15 Encounter Diagnosis: Problem not documented Appointment; Shant Reyes M.D. 28-Apr-2018 11:00 Encounter Diagnosis: Problem not documented Appointment; Shant Reyes M.D. 16-Feb-2018 14:00 Encounter Diagnosis: Problem not documented Appointment; Shant Reyes M.D. 02-Feb-2018 13:15 Encounter Diagnosis: Problem not documented Appointment; Shant Reyes M.D. 28-Apr-2017 13:15 Encounter Diagnosis: Problem not documented Appointment; Wilfredo Herndon M.D. 28-Apr-2017 13:00 Encounter Diagnosis: Problem not documented Appointment; Shant Reyes M.D. 26-Oct-2016 15:00 Encounter Diagnosis: Problem not documented Appointment; Wilfredo Herndon M.D. 26-Oct-2016 14:30 Encounter Diagnosis: Problem not documented Appointment; Pulmonary, Funct Testing 26-Oct-2016 14:15 Encounter Diagnosis: Problem not documented
== END 2018-06-25 16:19 | disposition home or self-care (01) | DRG 580 ==
LOC: ED 16:53 → 4E 16:53 → SUATTDRO 22:01 → 4E 22:56

== ENCOUNTER 2019-07-23 04:08 | Inpatient (IN) ==
[2019-07-23] MEDS ORDERED: SODIUM CHLORIDE 0.9% 1000ML 1,000 ML IV SCH (05:30)
[2019-07-23] MEDS ORDERED: ONDANSETRON INJ 2 MG/ML 2 ML VIAL IV STA ×2 (05:30→08:27)
[2019-07-23] MEDS ORDERED: MoRPHine SULFATE 4 MG/ML 1 ML CARP\\VIAL IV STA (05:30)
--- NOTE | 2019-07-23 05:34 | Emergency Department Note ---
History of Present Illness General Chief complaint: Abdominal Pain Stated complaint: ABD PAIN,NAUSEA Time Seen by Provider: 07/23/19 04:41 Source: patient Mode of arrival: EMS Limitations: no limitations History of Present Illness Provider complaint: Abdominal pain, nausea and vomiting Onset (ago): hour(s) Location: abdomen Radiation: non-radiation Severity: severe Pain Consistency: + colicky Maximum Pain Intensity: 10 Current Pain Intensity: 10 Quality: + dull Relieved By: + none Exacerbated By: + eating and + movement Associated symptoms: + nausea/vomiting; no chest pain, no fever/chills and no syncope Treatments prior to arrival: none This is an 79-year-old female from home presenting due to complaints of abdominal pain, nausea and vomiting. Patient is most suspicious of a bowel obstruction as this feels similar to a prior bowel obstruction many years ago. Patient does have an ileostomy after having a prior colectomy. Patient stated today she had no output from her ileostomy. Patient states pain is nearly global, worse with movement, and was worse with attempts at sipping fluids. Patient states she had a decreased appetite today. Denies fevers chills. Patient states with worsening pain she has had increased nausea, did have several episodes of retching although she denies overt vomiting. No other recent change in her ileostomy output. No recent change in her diet or medications. No known sick contact. Patient denies any coming chest pain, shortness of breath, or upper respiratory symptoms. Patient denies any change in urine, no lower extremity edema. Pt seen during a time of high acuity and national emergency pandemic while wearing PPE. Home Medications Home Medications Medication Instructions Recorded Confirmed Type Lantus Solostar U-100 Insulin 8 unit SUBCUT HS 11/22/17 07/23/19 History anastrozole 1 mg PO QPM 11/22/17 07/23/19 History aspirin [Aspirin Low Dose] 81 mg PO QPM 11/22/17 07/23/19 History calcium carbonate-vitamin D3 1 tab PO QPM 11/22/17 07/23/19 History [Os-Conrad 500 + D3] cholecalciferol (vitamin D3) 5,000 unit PO QAM 11/22/17 07/23/19 History metoprolol tartrate 12.5 mg PO BID 11/22/17 07/23/19 History multivitamin with minerals 1 tab PO QAM 11/22/17 07/23/19 History pantoprazole 40 mg PO QAM 11/22/17 07/23/19 History prednisone 5 mg PO QAM 11/22/17 07/23/19 History brimonidine 1 drp OPB BID 06/22/18 07/23/19 History dorzolamide 1 drp OPR BID 06/22/18 07/23/19 History ferrous sulfate 325 mg PO BID #0 tab 06/25/18 07/23/19 Rx bumetanide 0.5 mg tablet 0.5 mg PO DAILY PRN tab 12/01/18 07/23/19 History budesonide-formoterol HFA 80 2 puff INHALATION BID #3 inhaler 02/01/19 07/23/19 Rx mcg-4.5 mcg/actuation aerosol inhaler zafirlukast 20 mg tablet 20 mg PO Q12H #180 tab 02/01/19 07/23/19 Rx sodium bicarbonate 650 mg tablet 650 mg PO DAILY #90 tab 02/07/19 07/23/19 Rx albuterol sulfate 90 mcg/actuation 2 - 4 puff INHALATION QID PRN #3 02/15/19 07/23/19 Rx aerosol inhaler inhaler bupropion HCl 300 mg 24 hr tablet, 300 mg PO DAILY tab 03/06/19 07/23/19 History extended release Allergies Allergy/AdvReac Type Severity Reaction Status Date / Time Bactrim Allergy Severe dizzy,dyseq Verified 10/26/17 14:59 uilibrium bee venom protein (honey bee) Allergy Severe ANAPHYLAXIS Verified 07/23/19 05:13 cefaclor Allergy Severe stiff and Verified 07/23/19 05:13 sore muscles-PT DENIES lisinopril Allergy Severe tongue Verified 07/23/19 05:13 swelling diltiazem Allergy Intermediate rash Verified 07/23/19 05:13 Penicillins Allergy Mild RASH Verified 07/23/19 05:13 tetracycline Allergy Mild UNK-PT Verified 07/23/19 05:13 DENIES amoxicillin Allergy Unknown RASH Verified 07/23/19 05:13 baclofen Allergy Unknown Unknown Verified 07/23/19 05:13 cefuroxime Allergy Unknown TAST Verified 07/23/19 05:13 clavulanic acid Allergy Unknown ITCHING Verified 07/23/19 05:13 levofloxacin Allergy Unknown NAUSEA, Verified 07/23/19 05:13 DIZZINESS alendronate sodium AdvReac Intermediate FELT SICK Verified 07/23/19 05:13 Cipro AdvReac Intermediate LEGS ARMS Verified 10/26/17 14:59 STIFF, PAINFUL ciprofloxacin AdvReac Intermediate LEGS ARMS Verified 07/23/19 05:13 STIFF, PAINFUL doxycycline AdvReac Intermediate nausea and Verified 07/23/19 05:13 vomiting metformin AdvReac Intermediate CAUSED Verified 07/23/19 05:13 BACK PAIN AND INC. LACTIC ACID LEVELS tramadol AdvReac Intermediate DIZZINESS Verified 07/23/19 05:13 adhesive AdvReac Mild redness Verified 07/23/19 05:13 mercaptopurine AdvReac Mild MADE HER Verified 07/23/19 05:13 VERY ILL olmesartan AdvReac Mild HEADACHE Verified 07/23/19 05:13 Sulfa (Sulfonamide AdvReac Mild CAUSED Verified 07/23/19 05:13 Antibiotics) DIZZINESS sulfamethoxazole AdvReac Mild CAUSED Verified 07/23/19 05:13 DIZZINESS trimethoprim AdvReac Mild BACTRIM Verified 07/23/19 05:13 CAUSED DIZZINESS aspirin AdvReac Unknown CAUSES Verified 07/23/19 05:13 BRUISING Past Med/Surg History Medical History Acute osteomyelitis (Resolved 06/05/01) "MRSA of the thoracic spine " On 02/05/12 10:49 Wilfredo Anthony Al wrote "MRSA of the thoracic spine " Anemia Asthma Breast cancer, left breast X2--1ST)2005 2)2012---SX,RADIATION Chronic back pain Chronic kidney disease, stage V CKD (chronic kidney disease) (Inactive) Deep vein thrombosis L LEG Fibromyalgia GERD (gastroesophageal reflux disease) Glaucoma BILT EYES Hyperlipidemia Hypertension Hyponatremia Pneumonia, organism unspecified (Resolved 02/05/12) Protein S deficiency Rheumatoid arthritis Spinal stenosis Stroke 07/2017--DIFFICULTY WALKING Trigeminal neuralgia Ulcerative colitis Vitamin D deficiency Surgical History H/O bilateral cataract extraction H/O right inguinal hernia repair History of appendectomy History of bowel resection [address] @ [facility] [place] History of breast biopsy LEFT MALIGNANT X2 History of colonoscopy History of esophagogastroduodenoscopy (EGD) History of gastric surgery 2013---ABCESS ON STOMACH WALL History of lumpectomy of left breast X2 2006 WITH LYMPH NODE REMOVAL, 2013 History of tooth extraction ALL TEETH Family History Brother Family history of diabetes mellitus 2 BROTHERS Mother Family hx of colon cancer Father Family hx of colon cancer Social History Preferred Language: Pashto Communication Ability: Effective Registered Respiratory Technician Required: No Beliefs That Will Affect Care: Presybeterian Presybeterian Beliefs: Hinduism Current Living Situation: Spouse Current Living Situation Comment: Patient lives w/ . Other Information That Helps Us Care for You: No (Uncertain thus far.) Feels Safe at Home: Yes Smoking Status: Former smoker Tobacco Type: cigarettes ; Do You Dip or Chew Tobacco: No ; Second Hand Exposure: Yes ; Hx Alcohol Use: No Hx Substance Use: No Review of Systems See HPI for pertinent positives & negatives. and A total of 10 systems reviewed and were otherwise negative Physical Exam Vital Signs Vital Signs - 24 hr 07/23/19 04:18 07/23/19 05:54 07/23/19 06:15 Temperature 36.6 C Temperature Source Oral Pulse Rate 79 59 L 66 Pulse Rate from SpO2 Sensor 59 L 66 Respiratory Rate 18 14 13 Blood Pressure 235/108 H 140/63 203/77 H Blood Pressure Mean 150 103 134 Blood Pressure Position Sitting Pulse Oximetry 96 92 93 Oxygen Delivery Method Room Air Room Air Room Air Sepsis Recent Fever Within 48 Hours No Sepsis Action Taken by Nursing No Action Required 07/23/19 06:45 07/23/19 07:00 07/23/19 07:01 Temperature Temperature Source Pulse Rate 70 70 69 Pulse Rate from SpO2 Sensor 69 71 69 Respiratory Rate 11 L 15 13 Blood Pressure 224/97 H Blood Pressure Mean 164 Blood Pressure Position Pulse Oximetry 94 94 94 Oxygen Delivery Method Sepsis Recent Fever Within 48 Hours Sepsis Action Taken by Nursing 07/23/19 07:15 Temperature Temperature Source Pulse Rate 67 Pulse Rate from SpO2 Sensor 66 Respiratory Rate 14 Blood Pressure Blood Pressure Mean Blood Pressure Position Pulse Oximetry 94 Oxygen Delivery Method Sepsis Recent Fever Within 48 Hours Sepsis Action Taken by Nursing GENERAL: alert, ill appearing, well nourished, moderate distress, non-toxic EYE EXAM: normal conjunctiva, PERRL and EOM's grossly intact OROPHARYNX: no exudate, no erythema, lips, buccal mucosa, and tongue normal and mucous membranes are moist NECK: supple, no nuchal rigidity, no adenopathy, non-tender LUNGS: Clear to auscultation. Normal chest wall mechanics, no w/r/r HEART: no murmurs, S1 normal and S2 normal, port noted right anterior superior chest wall ABDOMEN: abdomen soft, generalized tenderness with palpation, decreased bowel sounds, no masses, no rebound or guarding. Dull to percussion. Ileostomy present. BACK: Back is symmetrical on inspection and there is no deformity, no midline tenderness, no CVA tenderness. SKIN: no rashes and no bruising UPPER EXTREMITIES: upper extremities are grossly normal. FROM, nml pulses b/l. LOWER EXTREMITIES: No pitting edema. FROM, nml pulses b/l. NEURO EXAM: Normal sensorium, cranial nerves II-XII grossly intact, normal speech, no gross weakness of arms, no gross weakness of legs. Gross sensation intact. Course Course 0650: Pt updated on results. States nausea and pain are improved. 0740: Case discussed with Dr. Bae, gen surg. Recommends NG tube placement. Will follow pt. 0800: Awaiting hospitalist evaluation. Pt aware of all results and verbalized understanding. Administered Medications Albuterol (Ventolin Hfa) 2 puffs INH Q4H PRN PRN Reason: Shortness Of Breath Or Wheezing Stop: 08/22/19 13:07 Last Admin: 07/23/19 21:18 Dose: 2 puffs Documented by: [id number] Anastrozole (Arimidex) 1 mg PO QAM [facility] Stop: 08/24/19 08:59 Last Admin: 07/25/19 08:39 Dose: 1 mg Documented by: [id number] Cosigned by: [id number] Aspirin (Ecotrin Ectab) 81 mg PO QAM [facility] Stop: 08/24/19 08:59 Last Admin: 07/25/19 08:40 Dose: 81 mg Documented by: [id number] Brimonidine Tartrate (Alphagan 0.2%) 1 drops OPB BID [facility] Stop: 08/22/19 13:29 Last Admin: 07/25/19 20:34 Dose: 1 drops Documented by: [id number] Admin: 07/25/19 08:41 Dose: 1 drops Documented by: [id number] Admin: 07/24/19 21:00 Dose: 1 drops Documented by: [id number] Admin: 07/24/19 08:42 Dose: 1 drops Documented by: [id number] Admin: 07/23/19 20:38 Dose: 1 drops Documented by: [id number] Admin: 07/23/19 14:23 Dose: 1 drops Documented by: [id number] Bupropion HCl (Wellbutrin-Xl) 300 mg PO QAM [facility] Stop: 08/23/19 14:44 Last Admin: 07/25/19 08:39 Dose: 300 mg Documented by: [id number] Admin: 07/24/19 15:32 Dose: 300 mg Documented by: [id number] Dorzolamide HCl (Trusopt 2% Oph) 1 drops OPR BID [facility] Stop: 08/22/19 13:07 Last Admin: 07/25/19 20:04 Dose: 1 drops Documented by: [id number] Admin: 07/25/19 08:41 Dose: 1 drops Documented by: [id number] Admin: 07/24/19 21:00 Dose: 1 drops Documented by: [id number] Admin: 07/24/19 08:42 Dose: 1 drops Documented by: [id number] Admin: 07/23/19 20:37 Dose: 1 drops Documented by: [id number] Admin: 07/23/19 14:18 Dose: 1 drops Documented by: [id number] Ferrous Sulfate (Feosol) 325 mg PO BIDM [facility] Stop: 08/23/19 16:59 Last Admin: 07/25/19 17:49 Dose: 325 mg Documented by: [id number] Admin: 07/25/19 08:39 Dose: 325 mg Documented by: [id number] Admin: 07/24/19 17:13 Dose: 325 mg Documented by: [id number] Fluticasone/Vilanterol (Breo Ellipta 100/25 Mcg Inh) 1 puffs INH DAILY [facility] Stop: 08/22/19 13:29 Last Admin: 07/25/19 08:42 Dose: 1 puffs Documented by: [id number] Admin: 07/24/19 08:41 Dose: 1 puffs Documented by: [id number] Admin: 07/23/19 14:23 Dose: 1 puffs Documented by: [id number] Heparin Sodium (Porcine) (Heparin Sodium (Porcine)) 5,000 units SQ Q12 JESSICA Stop: 08/22/19 20:59 Last Admin: 07/25/19 20:06 Dose: 5,000 units Documented by: [id number] Cosigned by: [id number] Admin: 07/25/19 08:43 Dose: 5,000 units Documented by: [id number] Cosigned by: [id number] Admin: 07/24/19 21:03 Dose: 5,000 units Documented by: [id number] Cosigned by: [id number] Admin: 07/24/19 08:43 Dose: 5,000 units Documented by: [id number] Cosigned by: [id number] Admin: 07/23/19 20:40 Dose: 5,000 units Documented by: [id number] Cosigned by: [id number] Hydralazine HCl (Hydralazine Hcl) 10 mg IV Q6H PRN PRN Reason: Hypertension Stop: 08/22/19 13:07 Last Admin: 07/25/19 12:04 Dose: 10 mg Documented by: [id number] Admin: 07/24/19 15:57 Dose: 10 mg Documented by: [id number] Admin: 07/24/19 07:29 Dose: 10 mg Documented by: [id number] Sodium Bicarbonate 50 meq/ (Sodium Chloride) 1,050 mls @ 75 mls/hr IV .Q14H JESSICA Stop: 08/22/19 09:29 Last Admin: 07/25/19 18:46 Dose: 75 mls/hr Documented by: [id number] Infusion: 07/25/19 18:38 Dose: 75 mls/hr Documented by: [id number] Admin: 07/25/19 04:38 Dose: 75 mls/hr Documented by: [id number] Infusion: 07/25/19 04:38 Dose: 75 mls/hr Documented by: [id number] Admin: 07/24/19 15:33 Dose: 75 mls/hr Documented by: [id number] Infusion: 07/24/19 15:32 Dose: 0 mls/hr Documented by: [id number] Admin: 07/24/19 01:02 Dose: 75 mls/hr Documented by: [id number] Infusion: 07/24/19 00:40 Dose: 75 mls/hr Documented by: [id number] Admin: 07/23/19 10:40 Dose: 75 mls/hr Documented by: [id number] Pantoprazole Sodium 40 mg/ (Syringe) 10 mls @ 5 mls/min IV DAILY@1100 JESISCA Stop: 08/22/19 13:07 Last Admin: 07/25/19 12:05 Dose: 5 mls/min Documented by: [id number] Admin: 07/24/19 12:19 Dose: 5 mls/min Documented by: [id number] Admin: 07/23/19 14:16 Dose: 5 mls/min Documented by: [id number] Insulin Aspart (Novolog Flexpen) 0 units SC ACHS JESSICA Stop: 08/23/19 12:29 Last Admin: 07/25/19 20:06 Dose: Not Given Documented by: [id number] Cosigned by: [id number] Admin: 07/25/19 18:16 Dose: 2 units Documented by: [id number] Cosigned by: [id number] Admin: 07/25/19 12:48 Dose: 3 units Documented by: [id number] Cosigned by: [id number] Admin: 07/25/19 08:45 Dose: 2 units Documented by: [id number] Cosigned by: [id number] Admin: 07/24/19 21:09 Dose: 1 units Documented by: [id number] Cosigned by: [id number] Admin: 07/24/19 17:15 Dose: 2 units Documented by: [id number] Cosigned by: [id number] Admin: 07/24/19 12:44 Dose: 3 units Documented by: [id number] Cosigned by: [id number] Metoprolol Tartrate (Lopressor) 12.5 mg PO BID JESSICA Stop: 08/23/19 11:44 Last Admin: 07/25/19 20:05 Dose: 12.5 mg Documented by: [id number] Admin: 07/25/19 08:38 Dose: 12.5 mg Documented by: [id number] Admin: 07/24/19 21:05 Dose: 12.5 mg Documented by: [id number] Admin: 07/24/19 12:19 Dose: Not Given Documented by: [id number] Montelukast Sodium (Singulair) 10 mg PO HS JESSICA Stop: 08/24/19 20:59 Last Admin: 07/25/19 20:05 Dose: 10 mg Documented by: [id number] Prednisone (Prednisone) 5 mg PO DAILY JESSICA Stop: 08/23/19 14:44 Last Admin: 07/25/19 08:39 Dose: 5 mg Documented by: [id number] Admin: 07/24/19 15:33 Dose: 5 mg Documented by: [id number] Discontinued Medications Hydralazine HCl (Hydralazine Hcl) 5 mg IV NOW ONE Stop: 07/23/19 08:21 Last Admin: 07/23/19 08:35 Dose: 5 mg Documented by: [id number] Sodium Chloride (Nss 1000ml) 1,000 mls @ 125 mls/hr IV .Q8H JESSICA Stop: 08/22/19 05:29 Last Infusion: 07/23/19 10:38 Dose: 0 mls/hr Documented by: [id number] Admin: 07/23/19 05:40 Dose: 125 mls/hr Documented by: [id number] Insulin Aspart (Novolog Flexpen) 0 units SC ACHS JESSICA Stop: 08/22/19 13:07 Last Admin: 07/23/19 17:42 Dose: Not Given Documented by: [id number] Cosigned by: [id number] Admin: 07/23/19 14:08 Dose: Not Given Documented by: [id number] Cosigned by: [id number] Insulin Aspart (Novolog Flexpen) 0 units SC Q6 JESSICA Stop: 08/22/19 13:07 Last Admin: 07/24/19 06:10 Dose: 1 units Documented by: [id number] Cosigned by: [id number] Admin: 07/24/19 00:15 Dose: Not Given Documented by: [id number] Cosigned by: [id number] Metoprolol Tartrate (Lopressor) Confirm Administered Dose 5 mg IV .STK-MED ONE Stop: 07/24/19 09:15 Last Admin: 07/24/19 09:16 Dose: 5 mg Documented by: [id number] Metoprolol Tartrate (Lopressor) 5 mg IV NOW STA Stop: 07/24/19 12:00 Last Admin: 07/24/19 12:16 Dose: 5 mg Documented by: [id number] Miscellaneous () 1 ea N/A NOW STA Stop: 07/23/19 13:09 Last Admin: 07/23/19 14:16 Dose: Not Given Documented by: [id number] Miscellaneous (Order Awaiting Action) 1 ea N/A QS JESSICA Stop: 08/23/19 15:59 Last Admin: 07/25/19 02:16 Dose: Not Given Documented by: [id number] Admin: 07/24/19 15:35 Dose: Not Given Documented by: [id number] Morphine Sulfate (Morphine Sulfate) 4 mg IV NOW STA Stop: 07/23/19 05:31 Last Admin: 07/23/19 05:40 Dose: 4 mg Documented by: [id number] Ondansetron HCl (Zofran) 4 mg IV NOW STA Stop: 07/23/19 05:31 Last Admin: 07/23/19 05:40 Dose: 4 mg Documented by: [id number] Ondansetron HCl (Zofran) 4 mg IV NOW STA Stop: 07/23/19 08:28 Last Admin: 07/23/19 08:38 Dose: 4 mg Documented by: [id number] Medical Decision Making Differential Diagnosis Differential diagnoses includes but is not limited to gastritis, peptic ulcer disease, GERD, gallbladder disease, pancreatitis, small bowel obstruction, acute coronary syndrome, pericarditis, ischemic bowel, irritable bowel disease, irritable bowel syndrome, appendicitis, diverticulitis, malignancy, hernia, urinary tract infection, torsion, [/ectopic (if female)], perforation, trauma, infectious. Medical Records Attestation: I reviewed the patient's medical records. Home Medications Current Medication List: was personally reviewed by me Laboratory Data Attestation: I reviewed the patient's lab results. Result diagrams: 07/25/19 05:19 07/25/19 05:19 Lab Results 07/23/19 07/23/19 07/23/19 Range/Units 05:34 05:34 05:34 WBC 10.12 (4.8-10.8) K/uL RBC 3.36 L (4.2-5.4) M/uL Hgb 10.6 L (12.0-16.0) g/dL Hct 32.7 L (37-47) % MCV 97.3 (80-100) fL MCH 31.5 (25-34) pg MCHC 32.4 (32-36) g/dL RDW Std Deviation 45.5 (36.4-46.3) fL RDW Coeff of Michelle 12.9 (11.5-14.5) % Plt Count 174 (130-400) K/uL MPV 9.9 (7.4-10.4) fL Immature Gran % (Auto) 0.1 % Neut % (Auto) 81.3 % Lymph % (Auto) 12.9 % [place] % (Auto) 4.8 % Eos % (Auto) 0.7 % Baso % (Auto) 0.2 % Immature Gran # (Auto) 0.01 (0.00-0.02) K/uL Neut # (Auto) 8.22 H (1.4-6.5) K/uL Lymph # (Auto) 1.31 (1.2-3.4) K/uL [place] # (Auto) 0.49 (0.11-0.59) K/uL Eos # (Auto) 0.07 (0-0.5) K/uL Baso # (Auto) 0.02 (0-0.2) K/uL Sodium 142 (136-145) mmol/L Potassium 3.9 (3.5-5.1) mmol/L Chloride 110 H (98-107) mmol/L Carbon Dioxide 22 (21-32) mmol/L Anion Gap 10.0 (3-11) BUN 46 H (7-18) mg/dl Creatinine 3.06 H (0.6-1.2) mg/dl Est Cr Clr Drug Dosing 16.3 ml/min Est GFR ( Amer) 15.8 Est GFR (Non-Af Amer) 13.7 BUN/Creatinine Ratio 15.1 (10-20) Glucose 155 H (70-99) mg/dl POC Lactic Acid Christian (0.90-1.70) mmol/L Calcium 8.8 (8.5-10.1) mg/dl Magnesium 2.0 (1.8-2.4) mg/dl Total Bilirubin 0.3 (0.2-1) mg/dl AST 14 L (15-37) U/L ALT 16 (12-78) U/L Alkaline Phosphatase 57 (45-117) U/L Troponin I 0.020 (0-0.045) ng/ml Total Protein 5.8 L (6.4-8.2) gm/dl Albumin 2.9 L (3.4-5.0) gm/dl Globulin 2.9 (2.5-4.0) gm/dl Albumin/Globulin Ratio 1.0 (0.9-2) Lipase 76 (73-393) U/L 07/23/19 Range/Units 05:49 WBC (4.8-10.8) K/uL RBC (4.2-5.4) M/uL Hgb (12.0-16.0) g/dL Hct (37-47) % MCV (80-100) fL MCH (25-34) pg MCHC (32-36) g/dL RDW Std Deviation (36.4-46.3) fL RDW Coeff of Michelle (11.5-14.5) % Plt Count (130-400) K/uL MPV (7.4-10.4) fL Immature Gran % (Auto) % Neut % (Auto) % Lymph % (Auto) % [place] % (Auto) % Eos % (Auto) % Baso % (Auto) % Immature Gran # (Auto) (0.00-0.02) K/uL Neut # (Auto) (1.4-6.5) K/uL Lymph # (Auto) (1.2-3.4) K/uL [place] # (Auto) (0.11-0.59) K/uL Eos # (Auto) (0-0.5) K/uL Baso # (Auto) (0-0.2) K/uL Sodium (136-145) mmol/L Potassium (3.5-5.1) mmol/L Chloride (98-107) mmol/L Carbon Dioxide (21-32) mmol/L Anion Gap (3-11) BUN (7-18) mg/dl Creatinine (0.6-1.2) mg/dl Est Cr Clr Drug Dosing ml/min Est GFR ( Amer) Est GFR (Non-Af Amer) BUN/Creatinine Ratio (10-20) Glucose (70-99) mg/dl POC Lactic Acid Christian 0.68 L (0.90-1.70) mmol/L Calcium (8.5-10.1) mg/dl Magnesium (1.8-2.4) mg/dl Total Bilirubin (0.2-1) mg/dl AST (15-37) U/L ALT (12-78) U/L Alkaline Phosphatase (45-117) U/L Troponin I (0-0.045) ng/ml Total Protein (6.4-8.2) gm/dl Albumin (3.4-5.0) gm/dl Globulin (2.5-4.0) gm/dl Albumin/Globulin Ratio (0.9-2) Lipase (73-393) U/L Imaging Data Radiologist's Impression: CT abdomen and pelvis without contrast: Post colectomy. Right lower quadrant ileostomy and bowel containing parastomal hernia with resulting small bowel obstruction. Small bowel is dilated up to 4.2 cm. Associated mesenteric edema and trace free fluid. No free air. Post hysterectomy. Subsegmental atelectasis at lung bases. Atherosclerotic calcifications of aorta and its branches. Degenerative changes of the spine. Radiologist: Elliot Nugent MD ECG Data Attestation: I personally reviewed and interpreted this ECG as follows: Indication: + abdominal pain Rate (beats per minute): 59 Rhythm: + sinus bradycardia ECG Intervals/blocks: + Normal QRS and + Normal QT ECG [place]: + Normal ECG ST segments: + Nonspecific ST abnormalities (Flattened T waves nearly throughout) Blood Pressure Blood Pressure Findings: Elevated blood pressure Blood Pressure Disposition: further management by hospitalist MDM Narrative Pt here c/o abdominal pain, n/v and concern for bowel obstruction. VS stable. Pt improved with meds here. CT with sbo. Lactate acid and WBC reassuring. H/H stable with slight anemia. Hx of CKD and Cr stable compared to prior. Case discussed with gen surg and with hospitalist for admission. I do not suspect ischemic process. No evidence of additional infectious etiology. An order was placed for continuous cardiac monitoring. The monitor shows a rate of 70 with normal sinus rhythm. Impression & Plan SBO (small bowel obstruction), Abdominal pain, Nausea & vomiting, H/O ileostomy, CKD (chronic kidney disease) Discharge Plan Visit Data *Final* Discharge Date/Time: 07/23/19 12:23 Chief Complaint: Abdominal Pain Stated Complaint: ABD PAIN,NAUSEA ED Provider: Ольга Mckeon Discharge Problem: SBO (small bowel obstruction), Abdominal pain, Nausea & vomiting, H/O ileostomy, CKD (chronic kidney disease) Patient Disposition: Admitted As Inpatient Discharge Instructions Interventions: ED Discharge Assessment Last Done: 07/23/19 12:33 Discharge Problem: Abdominal pain Qualifiers: Abdominal location: generalized Qualified Code(s): R10.84 - Generalized abdominal pain Nausea & vomiting Qualifiers: Vomiting type: unspecified Vomiting Intractability: non-intractable Qualified Code(s): R11.2 - Nausea with vomiting, unspecified
[2019-07-23 05:44] LABS: Basophils # (auto) 0.02 K/uL (0-0.2); Basophils % (auto) 0.2 %; Eosinophils # (auto) 0.07 K/uL (0-0.5); Eosinophils % (auto) 0.7 %; Hematocrit (blood only) 32.7 % (37-47); Hemoglobin 10.6 g/dL (12.0-16.0); Immature Granulocytes # (auto) 0.01 K/uL (0.00-0.02); Immature Granulocytes % (auto) 0.1 %; Lymphocytes # (auto) 1.31 K/uL (1.2-3.4); Lymphocytes % (auto) 12.9 %; Mean Corpuscular Hemoglobin 31.5 pg (25-34); Mean Corpuscular Hgb Conc 32.4 g/dL (32-36); Mean Corpuscular Volume 97.3 fL (80-100); Mean Platelet Volume 9.9 fL (7.4-10.4); Monocytes # (auto) 0.49 K/uL (0.11-0.59); Monocytes % (auto) 4.8 %; Neutrophils # (auto) 8.22 K/uL (1.4-6.5); Neutrophils % (auto) 81.3 %; Platelet Count 174 K/uL (130-400); RDW Coefficient of Variation 12.9 % (11.5-14.5); RDW Standard Deviation 45.5 fL (36.4-46.3); Red Blood Count 3.36 M/uL (4.2-5.4); White Blood Count 10.12 K/uL (4.8-10.8)
[2019-07-23 06:07] LABS: Albumin Level 2.9 gm/dl (3.4-5.0); BUN Creatinine Ratio 15.1 (10-20); Calcium 8.8 mg/dl (8.5-10.1); Creatinine Clr Calc Pharmacy 16.3 ml/min; Est GFR (African American) 15.8; Est GFR (Non-African American) 13.7; Potassium 3.9 mmol/L (3.5-5.1)
[2019-07-23 06:10] LABS: Bilirubin,Total 0.3 mg/dl (0.2-1); Globulin 2.9 gm/dl (2.5-4.0); Total Protein 5.8 gm/dl (6.4-8.2)
[2019-07-23 06:46] LABS: Troponin I 0.02 ng/ml (0-0.045)
--- NOTE | 2019-07-23 07:03 | CT Scan Report ---
CT OF THE ABDOMEN AND PELVIS WITHOUT CONTRAST CLINICAL HISTORY: abd pain, n/v, prior ileostomy COMPARISON STUDY: PET/CT July 06, 2018. Renal ultrasound March 02, 2019. TECHNIQUE: Axial images of the abdomen and pelvis were obtained without IV contrast. Images were revi ewed in the axial, sagittal, and coronal planes. Automated exposure control was utilized for the adriana dy. A dose lowering technique was utilized adhering to the principles of ALARA. FINDINGS: Lung bases are unremarkable. No pneumatosis, free air or portal venous gas is present. Note is made of a colectomy with right lower quadrant ileostomy. A parastomal hernia contains multiple sm all bowel loops. The proximal to mid small bowel is moderately dilated and fluid-filled. There is sto ol within a small bowel loop within the parastomal hernia. The transition point is likely within the parastomal hernia although difficult to assess on this unenhanced examination. There is mild associat ed mesenteric infiltration and trace ascites. Slight prominence of the right collecting system is not ed without chantell hydronephrosis. No lymphadenopathy is present. Evaluation of the abdomen and pelvis is suboptimal on this unenhanced exam. The liver, spleen, adrenal glands and pancreas are unremarkabl e with exception of pancreatic glandular atrophy. IMPRESSION: Findings consistent with a moderate grade small bowel obstruction with transition point likely within a parastomal hernia of the right lower quadrant ileostomy. Trace associated ascites and mesenteric infiltration. ACT 112: Negative or not required by law. Electronically signed by: Salvatore Sanderson M.D. 07/23/2019 7:02 AM
[2019-07-23] MEDS ORDERED: MoRPHine SULFATE 4 MG/ML 1 ML CARP\\VIAL IV PRN ×2 (08:20→09:26)
[2019-07-23] MEDS ORDERED: HydrALAZINE HCL 20 MG/ML VIAL IV ONE (08:20)
[2019-07-23] MEDS ORDERED: ONDANSETRON INJ 2 MG/ML 2 ML VIAL IV PRN (09:26)
--- NOTE | 2019-07-23 09:29 | History & Physical Report ---
Date of Service July 23, 2019 Assessment & Plan (1) SBO (small bowel obstruction): 79-year-old female was admitted on 23 Jul 2019 after c/o N/V and abdominal pain. Small bowel obstruction, parastomal hernia: PMH ulcerative colitis and prior bowel resection with ileostomy (1993). C/o abd pain with non-bloody N/V over past 24 hours. Denies CP, SOB. - In ED, afebrile, HR in 60s, quite hypertensive, normal room SpO2. WBC 10. Troponin 0.02. EKG sinus angie 59. POC lactate 0.68. CT a/p suggestive of a moderate grade SBO with transition point at the parastomal hernia. Trace ascites and mesenteric infiltration. - In ED, given morphine, Zofran, and started on IVF. They discussed case with general surgery, recommended NGT placement. - Formal general surgery consult. Keep NPO with NGT to intermittent suction. Recheck troponin and lactate. Morphine and Zofran (both prn) for symptom control. Hypertensive urgency: PMH same. ED BP as high as 235/108. At home is on metoprolol 12.5 mg BID, but missed two doses due to GI symptoms. - In ED, treated with hydralazine 5 mg IV. - Will order hydralazine prn on admit for SBP > 180. Held home metoprolol initially due to relative bradycardia. Given she will be off of her daily prednisone 5 mg while NPO, will need to watch BP close and supplement with IV hydrocortisone prn. Ongoing medical issues: - HLD, CHF: August 2017 echo EG 50-55%, LVSF low normal, mild MR & TR. Held home bumetanide prn. Will watch volume status. - DM2: May 2018 HbA1c 6.2. At home is on lantus. Placed on insulin SS here. Held home ASA 81. Recheck HbA1c in AM. - CKD stage V: Follows with Dr. Reyes (nephro) as outpatient. Patient says would decline dialysis if needed. Baseline Cr around 3.0. Admit Cr 3.06. At home is on sodium bicarb 650 mg daily. --- Will put bicarb in her IVF while NPO. - Anemia: Admit Hb 10.6. Baseline around there. Held home iron. - Asthma: On home symbicort and albuterol prn. Held home zafirlukast PO. - Left leg DVT, Protein S deficiency: Not on chronic anticoagulation. - GERD: Converted home pantoprazole 40 mg to IV. - Hyponatremia: Admit Na 142. - CVA 2018: Some residual LE weakness. - Depression: Held home buproprion. - Left breast cancer (2005, 2012): Hx radiation and lumpectomy. Held home anastrozole. - Rheumatoid arthritis: Held home prednisone 5 mg daily. Watch BP as noted above. - Glaucoma: On home brimonidine and dorzolamide. - Lung nodule: Has been followed with thoracic surgery. Patient says next scan around Sep 2019. Code status: Full code. Diet: NPO. On 03/02 NS + 50 meq bicarb at 75 mL/hr. DVT prophy: SCDs for now. Holding chemical prophy pending surgery evaluation. PT/OT: Ordered. Disbo: Admit to med surg telemetry. Lives at home with . (2) Parastomal hernia: (3) Hypertensive urgency: (4) Hyperlipidemia: (5) CHF (congestive heart failure): (6) Diabetes mellitus, type 2: (7) Chronic kidney disease, stage V: (8) Anemia: (9) Asthma: (10) History of DVT (deep vein thrombosis): (11) Ulcerative colitis: (12) GERD (gastroesophageal reflux disease): (13) Hyponatremia: (14) History of CVA (cerebrovascular accident): (15) Depression: (16) Breast cancer, left breast: (17) Rheumatoid arthritis: (18) Glaucoma: (19) Lung nodule: History of Present Illness Primary Care Provider: Se Tovar MD 79-year-old female says beginning around noon yesterday she began to develop some acute on chronic generalized abdominal pain. Had a couple episodes of nonbloody emesis earlier this morning. Says that she had good stool ostomy output yesterday but none so far today. Otherwise, she denies any focal concerns to include any headache, blurry vision, numbness or tingling in her extremities, chest pain, shortness of breath, or other concerns. She does state that she has a chronic dry cough related to asthma. - Past medical history includes ulcerative colitis, hypertension, hyperlipidemia, CHF, diabetes type 2, CKD stage V, anemia, asthma, left leg DVT, protein S deficiency, GERD, hyponatremia, CVA 2018, depression, left-sided breast cancer status post radiation and lumpectomy, rheumatoid arthritis, glaucoma, lung nodule - Past surgical history includes bilateral cataracts, right inguinal hernia, appendectomy, bowel resection with ileostomy, breast biopsy and lumpectomy, EGD and colonoscopy, stomach abscess surgery, tooth extraction. - Social history includes quitting smoking 27 years ago, does not drink alcohol, lives at home with spouse. Allergies Allergy/AdvReac Type Severity Reaction Status Date / Time Bactrim Allergy Severe dizzy,dyseq Verified 10/26/17 14:59 uilibrium bee venom protein (honey bee) Allergy Severe ANAPHYLAXIS Verified 07/23/19 05:13 cefaclor Allergy Severe stiff and Verified 07/23/19 05:13 sore muscles-PT DENIES lisinopril Allergy Severe tongue Verified 07/23/19 05:13 swelling diltiazem Allergy Intermediate rash Verified 07/23/19 05:13 Penicillins Allergy Mild RASH Verified 07/23/19 05:13 tetracycline Allergy Mild UNK-PT Verified 07/23/19 05:13 DENIES amoxicillin Allergy Unknown RASH Verified 07/23/19 05:13 baclofen Allergy Unknown Unknown Verified 07/23/19 05:13 cefuroxime Allergy Unknown TAST Verified 07/23/19 05:13 clavulanic acid Allergy Unknown ITCHING Verified 07/23/19 05:13 levofloxacin Allergy Unknown NAUSEA, Verified 07/23/19 05:13 DIZZINESS alendronate sodium AdvReac Intermediate FELT SICK Verified 07/23/19 05:13 Cipro AdvReac Intermediate LEGS ARMS Verified 10/26/17 14:59 STIFF, PAINFUL ciprofloxacin AdvReac Intermediate LEGS ARMS Verified 07/23/19 05:13 STIFF, PAINFUL doxycycline AdvReac Intermediate nausea and Verified 07/23/19 05:13 vomiting metformin AdvReac Intermediate CAUSED Verified 07/23/19 05:13 BACK PAIN AND INC. LACTIC ACID LEVELS tramadol AdvReac Intermediate DIZZINESS Verified 07/23/19 05:13 adhesive AdvReac Mild redness Verified 07/23/19 05:13 mercaptopurine AdvReac Mild MADE HER Verified 07/23/19 05:13 VERY ILL olmesartan AdvReac Mild HEADACHE Verified 07/23/19 05:13 Sulfa (Sulfonamide AdvReac Mild CAUSED Verified 07/23/19 05:13 Antibiotics) DIZZINESS sulfamethoxazole AdvReac Mild CAUSED Verified 07/23/19 05:13 DIZZINESS trimethoprim AdvReac Mild BACTRIM Verified 07/23/19 05:13 CAUSED DIZZINESS aspirin AdvReac Unknown CAUSES Verified 07/23/19 05:13 BRUISING Home Medications Home Medications Medication Instructions Recorded Confirmed Type Jerri Damonostar U-100 Insulin 8 unit SUBCUT HS 11/22/17 07/23/19 History anastrozole 1 mg PO QPM 11/22/17 07/23/19 History aspirin [Aspirin Low Dose] 81 mg PO QPM 11/22/17 07/23/19 History calcium carbonate-vitamin D3 1 tab PO QPM 11/22/17 07/23/19 History [Os-Conrad 500 + D3] cholecalciferol (vitamin D3) 5,000 unit PO QAM 11/22/17 07/23/19 History metoprolol tartrate 12.5 mg PO BID 11/22/17 07/23/19 History multivitamin with minerals 1 tab PO QAM 11/22/17 07/23/19 History pantoprazole 40 mg PO QAM 11/22/17 07/23/19 History prednisone 5 mg PO QAM 11/22/17 07/23/19 History brimonidine 1 drp OPB BID 06/22/18 07/23/19 History dorzolamide 1 drp OPR BID 06/22/18 07/23/19 History ferrous sulfate 325 mg PO BID #0 tab 06/25/18 07/23/19 Rx bumetanide 0.5 mg tablet 0.5 mg PO DAILY PRN tab 12/01/18 07/23/19 History budesonide-formoterol HFA 80 2 puff INHALATION BID #3 inhaler 02/01/19 07/23/19 Rx mcg-4.5 mcg/actuation aerosol inhaler zafirlukast 20 mg tablet 20 mg PO Q12H #180 tab 02/01/19 07/23/19 Rx sodium bicarbonate 650 mg tablet 650 mg PO DAILY #90 tab 02/07/19 07/23/19 Rx albuterol sulfate 90 mcg/actuation 2 - 4 puff INHALATION QID PRN #3 02/15/19 07/23/19 Rx aerosol inhaler inhaler bupropion HCl 300 mg 24 hr tablet, 300 mg PO DAILY tab 03/06/19 07/23/19 History extended release Past Med/Surg History Medical History Acute osteomyelitis (Resolved 06/05/01) "MRSA of the thoracic spine " On 02/05/12 10:49 Wilfredo Melendez wrote "MRSA of the thoracic spine " Anemia Asthma Breast cancer, left breast X2--1ST)2005 2)2012---SX,RADIATION Chronic back pain Chronic kidney disease, stage V CKD (chronic kidney disease) (Inactive) Deep vein thrombosis L LEG Fibromyalgia GERD (gastroesophageal reflux disease) Glaucoma BILT EYES Hyperlipidemia Hypertension Hyponatremia Pneumonia, organism unspecified (Resolved 02/05/12) Protein S deficiency Rheumatoid arthritis Spinal stenosis Stroke 07/2017--DIFFICULTY WALKING Trigeminal neuralgia Ulcerative colitis Vitamin D deficiency Surgical History H/O bilateral cataract extraction H/O right inguinal hernia repair History of appendectomy History of bowel resection 1993 WITH ILEOSTOMY @ [facility] [place] History of breast biopsy LEFT MALIGNANT X2 History of colonoscopy History of esophagogastroduodenoscopy (EGD) History of gastric surgery 2012---[facility] ON STOMACH WALL History of lumpectomy of left breast X2 2005 WITH LYMPH NODE REMOVAL, 2012 History of tooth extraction ALL TEETH Family History Brother Family history of diabetes mellitus 2 BROTHERS Mother Family hx of colon cancer Father Family hx of colon cancer Social History Preferred Language: Setswana Communication Ability: Effective General Engineering Teacher Required: No Beliefs That Will Affect Care: Taoist Taoist Beliefs: Jainism Current Living Situation: Spouse Current Living Situation Comment: Patient lives w/ . Other Information That Helps Us Care for You: No (Uncertain thus far.) Feels Safe at Home: Yes Smoking Status: Former smoker Tobacco Type: cigarettes ; Do You Dip or Chew Tobacco: No ; Second Hand Exposure: Yes ; Hx Alcohol Use: No Hx Substance Use: No Review of Systems Review of Systems: Constitutional: Denies fevers, chills, focal weakness Eyes: Denies any visual loss or diplopia ENT: Denies any ear/nose/throat pain or difficulty speaking or swallowing Respiratory: Denies any dyspnea, hemoptysis. Positive chronic cough. Cardiovascular: Denies any chest pain. Notes a little leg edema. Gastrointestinal: Positive abdominal pain, N/V. Denies loose diarrhea through ostomy. Musculoskeletal: Denies any acute extremity pains, myalgias. Notes baseline bilateral leg weakness. Skin: Denies any known acute rashes or lesions Neuro: Denies any headache, acute focal weakness or numbness, or difficulties with speech or swallow. Physical Exam Physical Exam: GENERAL: Awake, alert, well-appearing, in no acute distress HENT: Normocephalic, atraumatic. Oropharynx unremarkable. EYES: Normal conjunctiva. Sclera non-icteric. NECK: Inspection normal. Supple and full ROM. No nuchal rigidity. CARDIAC: +S1S2 RRR, no murmurs. Chest Mediport is accessed. RESPIRATORY: Clear to auscultation. No wheezes or rales. Normal respiratory effort. Positive occasional dry cough. GI: +BS, soft, non-distended. Mild to moderate generalized tenderness to palpation throughout.. No rebound or guarding. Right lower quadrant ostomy in place. EXTREMITIES: Bilateral [place]jo 1-2+ pitting edema. Strength 5/5 on dorsi and plantar flexion. Can lift both legs off the bed a little bit. Does not move her right shoulder much. Good lateral snack steward strength. NEURO: No gross neuro deficits. Results & Data Results & Data ([facility]) Vital Signs (Past 12 Hours) Vital Signs Temp Pulse Resp BP Pulse Ox 07/23/19 08:15 72 12 92 07/23/19 08:01 69 14 94 07/23/19 08:00 72 16 226/100 H 94 07/23/19 07:45 70 13 93 07/23/19 07:30 68 11 L 93 07/23/19 07:15 67 14 94 07/23/19 07:01 69 13 94 07/23/19 07:00 70 15 224/97 H 94 07/23/19 06:45 70 11 L 94 07/23/19 06:15 66 13 203/77 H 93 07/23/19 05:54 59 L 14 140/63 92 07/23/19 04:18 36.6 C 79 18 235/108 H 96 Laboratory Results 07/23/19 07/23/19 07/23/19 Range/Units 05:49 05:34 05:34 WBC (4.8-10.8) K/uL RBC (4.2-5.4) M/uL Hgb (12.0-16.0) g/dL Hct (37-47) % MCV (80-100) fL MCH (25-34) pg MCHC (32-36) g/dL RDW Std Deviation (36.4-46.3) fL RDW Coeff of Michelle (11.5-14.5) % Plt Count (130-400) K/uL MPV (7.4-10.4) fL Immature Gran % (Auto) % Neut % (Auto) % Lymph % (Auto) % [place] % (Auto) % Eos % (Auto) % Baso % (Auto) % Immature Gran # (Auto) (0.00-0.02) K/uL Neut # (Auto) (1.4-6.5) K/uL Lymph # (Auto) (1.2-3.4) K/uL [place] # (Auto) (0.11-0.59) K/uL Eos # (Auto) (0-0.5) K/uL Baso # (Auto) (0-0.2) K/uL Sodium 142 (136-145) mmol/L Potassium 3.9 (3.5-5.1) mmol/L Chloride 110 H (98-107) mmol/L Carbon Dioxide 22 (21-32) mmol/L Anion Gap 10.0 (3-11) BUN 46 H (7-18) mg/dl Creatinine 3.06 H (0.6-1.2) mg/dl Est Cr Clr Drug Dosing 16.3 ml/min Est GFR ( Amer) 15.8 Est GFR (Non-Af Amer) 13.7 BUN/Creatinine Ratio 15.1 (10-20) Glucose 155 H (70-99) mg/dl POC Lactic Acid Christian 0.68 L (0.90-1.70) mmol/L Calcium 8.8 (8.5-10.1) mg/dl Magnesium 2.0 (1.8-2.4) mg/dl Total Bilirubin 0.3 (0.2-1) mg/dl AST 14 L (15-37) U/L ALT 16 (12-78) U/L Alkaline Phosphatase 57 (45-117) U/L Troponin I 0.020 (0-0.045) ng/ml Total Protein 5.8 L (6.4-8.2) gm/dl Albumin 2.9 L (3.4-5.0) gm/dl Globulin 2.9 (2.5-4.0) gm/dl Albumin/Globulin Ratio 1.0 (0.9-2) Lipase 76 (73-393) U/L / Range/Units 05:34 WBC 10.12 (4.8-10.8) K/uL RBC 3.36 L (4.2-5.4) M/uL Hgb 10.6 L (12.0-16.0) g/dL Hct 32.7 L (37-47) % MCV 97.3 (80-100) fL MCH 31.5 (25-34) pg MCHC 32.4 (32-36) g/dL RDW Std Deviation 45.5 (36.4-46.3) fL RDW Coeff of Michelle 12.9 (11.5-14.5) % Plt Count 174 (130-400) K/uL MPV 9.9 (7.4-10.4) fL Immature Gran % (Auto) 0.1 % Neut % (Auto) 81.3 % Lymph % (Auto) 12.9 % [place] % (Auto) 4.8 % Eos % (Auto) 0.7 % Baso % (Auto) 0.2 % Immature Gran # (Auto) 0.01 (0.00-0.02) K/uL Neut # (Auto) 8.22 H (1.4-6.5) K/uL Lymph # (Auto) 1.31 (1.2-3.4) K/uL [place] # (Auto) 0.49 (0.11-0.59) K/uL Eos # (Auto) 0.07 (0-0.5) K/uL Baso # (Auto) 0.02 (0-0.2) K/uL Sodium (136-145) mmol/L Potassium (3.5-5.1) mmol/L Chloride (98-107) mmol/L Carbon Dioxide (21-32) mmol/L Anion Gap (3-11) BUN (7-18) mg/dl Creatinine (0.6-1.2) mg/dl Est Cr Clr Drug Dosing ml/min Est GFR ( Amer) Est GFR (Non-Af Amer) BUN/Creatinine Ratio (10-20) Glucose (70-99) mg/dl POC Lactic Acid Christian (0.90-1.70) mmol/L Calcium (8.5-10.1) mg/dl Magnesium (1.8-2.4) mg/dl Total Bilirubin (0.2-1) mg/dl AST (15-37) U/L ALT (12-78) U/L Alkaline Phosphatase (45-117) U/L Troponin I (0-0.045) ng/ml Total Protein (6.4-8.2) gm/dl Albumin (3.4-5.0) gm/dl Globulin (2.5-4.0) gm/dl Albumin/Globulin Ratio (0.9-2) Lipase (73-393) U/L Medications Administered Current Inpatient Medications Sodium Chloride (Nss 1000ml) 1,000 mls @ 125 mls/hr IV .Q8H JESSICA Stop: 08/22/19 05:29 Last Admin: 07/23/19 05:40 Dose: 125 mls/hr Documented by: Sodium Bicarbonate 50 meq/ (Sodium Chloride) 1,050 mls @ 75 mls/hr IV .Q14H JESSICA Stop: 08/22/19 09:29 Morphine Sulfate (Morphine Sulfate) 4 mg IV Q2H PRN PRN Reason: Pain Stop: 08/06/19 08:19 Morphine Sulfate (Morphine Sulfate) 4 mg IV Q4H PRN PRN Reason: Pain Stop: 08/06/19 09:25 Ondansetron HCl (Zofran) 4 mg IV Q4H PRN PRN Reason: Nausea Stop: 08/22/19 09:25 Code Status & VTE Plan Code Status Full code VTE Prophylaxis Plan VTE Prophylaxis will be ordered: Yes Supervising Physician Co-Signing Physician Notes I personally examined the patient and verified all delatorre points of history and exam, discussed case, and agree with decision making with Dr. Narvaez with the following additions/exceptions: Pt is an 79 yo female with a h/o UC with colectomy and ileostomy with multiple revisions of placement of her ileostomy, Breast CA, HTN, CKD stage 4-5, chronic diastolic CHF, h/o CVA, DVT/Prot S deficiency, on chronic prednisone, here with SBO secondary to a parastomal hernia. She presented with worsening abd pain and emesis. NGT placed in ER. with significant hypertensive urgency but asymptomatic with that. No CP or SOB, no headache or stroke-like symptoms. History and ROS reviewed as above Vitals reviewed-BP significantly elevated NAD, AAOx3, very pleasant Anicteric sclerae, NGT in place with 100mL of bloody bilious drainage in canister, OP clear RRR no mgr CTAB no wcr Abd +ostomy with no gas or stool in bag, +hernia in stoma site not completely reducible, abdomen is mildly distended, mild +TTP throughout left side of abdomen, no guarding or rebound tenderness Ext no edema Skin-no rashes 79 yo female here with history as noted above, with parasternal hernia causing SBO. -NGT for decompression, appreciate Surgery eval-hopeful for resolution with conservative measures given complex surgical history -continue IVFs with HCO3 -control BP with IV hydralazine as needed, metoprolol -hold home po meds including prednisone-no role for stress-dosed steroids at this time -pain control Resident Activity Tracking Resident Involvement: Resident Care Provided Care Provided: Adult Hospital Medicine
--- NOTE | 2019-07-23 10:11 | Electrocardiogram Report ---
Test Reason : Blood Pressure : / mmHG Vent. Rate : 059 BPM Atrial Rate : 059 BPM P-R Int : 194 ms QRS Dur : 092 ms QT Int : 448 ms P-R-T Axes : 044 -15 016 degrees QTc Int : 443 ms Sinus bradycardia Moderate voltage criteria for LVH, may be normal variant Nonspecific ST and T wave abnormality Abnormal ECG When compared with ECG of 22-JUN-2018 17:53, QRS duration has increased Nonspecific ST and T wave abnormality changes are worse Confirmed by Jack Arambula ([id number]) on 07/23/2019 10:11:11 AM Referred By: REFERRED SELF Confirmed By:Jack Arambula
[2019-07-23] MEDS: SODIUM BICARBONATE 8.4% 50 MEQ in SODIUM CHLORIDE 0.45 % 1,000 ML IV SCH (10:40)
--- NOTE | 2019-07-23 12:59 | Surgery Consultation ---
Date of Consultation July 23, 2019 Assessment & Plan (1) Parastomal hernia: Multiple prior episodes of parastomal hernia also. This time, appears to be involved in small bowel obstruction. Discussed initial conservative management with ng decompression, bowel rest. Able to partially reduce hernia today, will need re-attempt tomorrow after decompression. No signs of strangulation and given her complicated history with three prior moves of ileostomy, would prefer to avoid surgery if at all possible. If she does not resolve, discussed transfer as her case will be complicated given the multiple prior abdominal operations, her obesity and this being the fourth revision of her ostomy. she is agreeable to plan. Present on Admission?: Yes (2) SBO (small bowel obstruction): see above. Present on Admission?: Yes History of Present Illness Reason for Consultation: abdominal pain Requesting Physician: Rodolfo Narvaez MD Attending Physician: Rodolfo Narvaez MD History of Present Illness 79 yr old woman with complicated abdominal history presents with small bowel obstruction and parastomal hernia. She notes pain that started at noon on Wednesday, located in upper abdomen, no radiation, colicky, crampy, severe, 10/10 in intensity, associated with nausea and vomiting, worse with movement and eating. Still present now but more dull and down to 5/10. Ostomy output decreased but still does have gas / liquid in the bag. She is s/p colectomy/ ileostomy for ulcerative colitis in the past. Since then, has had two additional operations for small bowel obstructions/ parastomal hernias - each of these required relocating of the ileostomy (from right side to left and then back to right). Most recent of these was around 1995 she thinks. Allergies Allergy/AdvReac Type Severity Reaction Status Date / Time Bactrim Allergy Severe dizzy,dyseq Verified 10/26/17 14:59 uilibrium bee venom protein (honey bee) Allergy Severe ANAPHYLAXIS Verified 07/23/19 05:13 cefaclor Allergy Severe stiff and Verified 07/23/19 05:13 sore muscles-PT DENIES lisinopril Allergy Severe tongue Verified 07/23/19 05:13 swelling diltiazem Allergy Intermediate rash Verified 07/23/19 05:13 Penicillins Allergy Mild RASH Verified 07/23/19 05:13 tetracycline Allergy Mild UNK-PT Verified 07/23/19 05:13 DENIES amoxicillin Allergy Unknown RASH Verified 07/23/19 05:13 baclofen Allergy Unknown Unknown Verified 07/23/19 05:13 cefuroxime Allergy Unknown TAST Verified 07/23/19 05:13 clavulanic acid Allergy Unknown ITCHING Verified 07/23/19 05:13 levofloxacin Allergy Unknown NAUSEA, Verified 07/23/19 05:13 DIZZINESS alendronate sodium AdvReac Intermediate FELT SICK Verified 07/23/19 05:13 Cipro AdvReac Intermediate LEGS ARMS Verified 10/26/17 14:59 STIFF, PAINFUL ciprofloxacin AdvReac Intermediate LEGS ARMS Verified 07/23/19 05:13 STIFF, PAINFUL doxycycline AdvReac Intermediate nausea and Verified 07/23/19 05:13 vomiting metformin AdvReac Intermediate CAUSED Verified 07/23/19 05:13 [employer] LACTIC ACID LEVELS tramadol AdvReac Intermediate DIZZINESS Verified 07/23/19 05:13 adhesive AdvReac Mild redness Verified 07/23/19 05:13 mercaptopurine AdvReac Mild MADE HER Verified 07/23/19 05:13 VERY ILL olmesartan AdvReac Mild HEADACHE Verified 07/23/19 05:13 Sulfa (Sulfonamide AdvReac Mild CAUSED Verified 07/23/19 05:13 Antibiotics) DIZZINESS sulfamethoxazole AdvReac Mild CAUSED Verified 07/23/19 05:13 DIZZINESS trimethoprim AdvReac Mild BACTRIM Verified 07/23/19 05:13 CAUSED DIZZINESS aspirin AdvReac Unknown CAUSES Verified 07/23/19 05:13 BRUISING Home Medications Home Medications Medication Instructions Recorded Confirmed Type Jerri Chicas U-100 Insulin 8 unit SUBCUT HS 11/22/17 07/23/19 History anastrozole 1 mg PO QPM 11/22/17 07/23/19 History aspirin [Aspirin Low Dose] 81 mg PO QPM 11/22/17 07/23/19 History calcium carbonate-vitamin D3 1 tab PO QPM 11/22/17 07/23/19 History [Os-Conrad 500 + D3] cholecalciferol (vitamin D3) 5,000 unit PO QAM 11/22/17 07/23/19 History metoprolol tartrate 12.5 mg PO BID 11/22/17 07/23/19 History multivitamin with minerals 1 tab PO QAM 11/22/17 07/23/19 History pantoprazole 40 mg PO QAM 11/22/17 07/23/19 History prednisone 5 mg PO QAM 11/22/17 07/23/19 History brimonidine 1 drp OPB BID 06/22/18 07/23/19 History dorzolamide 1 drp OPR BID 06/22/18 07/23/19 History ferrous sulfate 325 mg PO BID #0 tab 06/25/18 07/23/19 Rx bumetanide 0.5 mg tablet 0.5 mg PO DAILY PRN tab 12/01/18 07/23/19 History budesonide-formoterol HFA 80 2 puff INHALATION BID #3 inhaler 02/01/19 07/23/19 Rx mcg-4.5 mcg/actuation aerosol inhaler zafirlukast 20 mg tablet 20 mg PO Q12H #180 tab 02/01/19 07/23/19 Rx sodium bicarbonate 650 mg tablet 650 mg PO DAILY #90 tab 02/07/19 07/23/19 Rx albuterol sulfate 90 mcg/actuation 2 - 4 puff INHALATION QID PRN #3 02/15/19 07/23/19 Rx aerosol inhaler inhaler bupropion HCl 300 mg 24 hr tablet, 300 mg PO DAILY tab 03/06/19 07/23/19 History extended release Patient History Medical History Acute osteomyelitis (Resolved 06/05/01) "MRSA of the thoracic spine " On 02/05/12 10:49 Wilfredo Melendez wrote "MRSA of the thoracic spine " Anemia Asthma Breast cancer, left breast X2--1ST)2005 2)2012---SX,RADIATION Chronic back pain Chronic kidney disease, stage V CKD (chronic kidney disease) (Inactive) Deep vein thrombosis L LEG Fibromyalgia GERD (gastroesophageal reflux disease) Glaucoma BILT EYES Hyperlipidemia Hypertension Hyponatremia Pneumonia, organism unspecified (Resolved 02/05/12) Protein S deficiency Rheumatoid arthritis Spinal stenosis Stroke 07/2017--DIFFICULTY WALKING Trigeminal neuralgia Ulcerative colitis Vitamin D deficiency Surgical History H/O bilateral cataract extraction H/O right inguinal hernia repair History of appendectomy History of bowel resection 1993 WITH ILEOSTOMY @ [facility] History of breast biopsy LEFT MALIGNANT X2 History of colonoscopy History of esophagogastroduodenoscopy (EGD) History of gastric surgery 2012---ABCESS ON STOMACH WALL History of lumpectomy of left breast X2 2005 WITH LYMPH NODE REMOVAL, 2012 History of tooth extraction ALL TEETH Family History Brother Family history of diabetes mellitus 2 BROTHERS Mother Family hx of colon cancer Father Family hx of colon cancer Social History Preferred Language: [place] Communication Ability: Effective Activity Coordinator Required: No Beliefs That Will Affect Care: None Current Living Situation: Spouse Feels Safe at Home: Yes Smoking Status: Never smoker Tobacco Type: cigarettes ; Second Hand Exposure: Yes ( SMOKED) ; Hx Alcohol Use: No Hx Substance Use: No Review of Systems Review of Systems: All systems reviewed & are unremarkable except as noted in HPI & below Physical Exam Constitutional: WD/WN, vitals as above Eyes: PERRL, conjunctivae normal, anicteric sclerae ENMT: Ears: no hearing impairment and no external ear abnormality Respiratory: normal respiratory effort, lungs clear to auscultation Cardiovascular: RRR, no murmur, no edema Gastrointestinal (Abdomen): Inspection/Auscultation: + abdomen distended (mild, obese); + abnormal bowel sounds (hypoactive) Percussion/Palpation: + abdomen tender (mild in upper abdomen), abdomen soft and + hernia (around right ileostomy, partially reducible, non tender); no guarding and no hepatomegaly well healed midline incision Neurologic: moves all extremities; no focal motor deficits Psychiatric: A+Ox3, euthymic affect Results & Data Vital Signs (Past 12 Hours) Vital Signs Temp Pulse Resp BP Pulse Ox 07/23/19 11:01 81 11 L 93 07/23/19 11:00 81 15 208/79 H 95 07/23/19 10:45 79 11 L 94 07/23/19 10:31 79 13 94 07/23/19 10:30 80 14 196/75 H 94 07/23/19 10:15 81 14 93 07/23/19 10:01 81 13 94 07/23/19 10:00 77 15 185/87 H 94 07/23/19 09:45 79 12 93 07/23/19 09:31 79 14 190/73 H 94 07/23/19 09:30 78 14 94 07/23/19 09:16 89 17 07/23/19 09:15 82 23 228/114 H 07/23/19 09:01 75 15 203/84 H 96 07/23/19 09:00 76 13 95 07/23/19 08:46 90 26 H 96 07/23/19 08:45 73 20 223/159 H 97 07/23/19 08:40 74 19 220/103 H 95 07/23/19 08:30 74 21 07/23/19 08:15 72 12 92 07/23/19 08:01 69 14 94 07/23/19 08:00 72 16 226/100 H 94 07/23/19 07:45 70 13 93 07/23/19 07:30 68 11 L 93 07/23/19 07:15 67 14 94 07/23/19 07:01 69 13 94 07/23/19 07:00 70 15 224/97 H 94 07/23/19 06:45 70 11 L 94 07/23/19 06:15 66 13 203/77 H 93 07/23/19 05:54 59 L 14 140/63 92 07/23/19 04:18 36.6 C 79 18 235/108 H 96 Laboratory Results 07/23/19 07/23/19 07/23/19 Range/Units 10:56 10:56 05:49 WBC (4.8-10.8) K/uL RBC (4.2-5.4) M/uL Hgb (12.0-16.0) g/dL Hct (37-47) % MCV (80-100) fL MCH (25-34) pg MCHC (32-36) g/dL RDW Std Deviation (36.4-46.3) fL RDW Coeff of Michelle (11.5-14.5) % Plt Count (130-400) K/uL MPV (7.4-10.4) fL Immature Gran % (Auto) % Neut % (Auto) % Lymph % (Auto) % [place] % (Auto) % Eos % (Auto) % Baso % (Auto) % Immature Gran # (Auto) (0.00-0.02) K/uL Neut # (Auto) (1.4-6.5) K/uL Lymph # (Auto) (1.2-3.4) K/uL [place] # (Auto) (0.11-0.59) K/uL Eos # (Auto) (0-0.5) K/uL Baso # (Auto) (0-0.2) K/uL Sodium (136-145) mmol/L Potassium (3.5-5.1) mmol/L Chloride (98-107) mmol/L Carbon Dioxide (21-32) mmol/L Anion Gap (3-11) BUN (7-18) mg/dl Creatinine (0.6-1.2) mg/dl Est Cr Clr Drug Dosing ml/min Est GFR ( Amer) Est GFR (Non-Af Amer) BUN/Creatinine Ratio (10-20) Glucose (70-99) mg/dl POC Lactic Acid Christian 0.68 L (0.90-1.70) mmol/L Lactate 0.7 (0.4-2.0) mmol/L Calcium (8.5-10.1) mg/dl Magnesium (1.8-2.4) mg/dl Total Bilirubin (0.2-1) mg/dl AST (15-37) U/L ALT (12-78) U/L Alkaline Phosphatase (45-117) U/L Troponin I 0.025 (0-0.045) ng/ml Total Protein (6.4-8.2) gm/dl Albumin (3.4-5.0) gm/dl Globulin (2.5-4.0) gm/dl Albumin/Globulin Ratio (0.9-2) Lipase (73-393) U/L 07/23/19 07/23/19 07/23/19 Range/Units 05:34 05:34 05:34 WBC 10.12 (4.8-10.8) K/uL RBC 3.36 L (4.2-5.4) M/uL Hgb 10.6 L (12.0-16.0) g/dL Hct 32.7 L (37-47) % MCV 97.3 (80-100) fL MCH 31.5 (25-34) pg MCHC 32.4 (32-36) g/dL RDW Std Deviation 45.5 (36.4-46.3) fL RDW Coeff of Michelle 12.9 (11.5-14.5) % Plt Count 174 (130-400) K/uL MPV 9.9 (7.4-10.4) fL Immature Gran % (Auto) 0.1 % Neut % (Auto) 81.3 % Lymph % (Auto) 12.9 % [place]gg % (Auto) 4.8 % Eos % (Auto) 0.7 % Baso % (Auto) 0.2 % Immature Gran # (Auto) 0.01 (0.00-0.02) K/uL Neut # (Auto) 8.22 H (1.4-6.5) K/uL Lymph # (Auto) 1.31 (1.2-3.4) K/uL [place] # (Auto) 0.49 (0.11-0.59) K/uL Eos # (Auto) 0.07 (0-0.5) K/uL Baso # (Auto) 0.02 (0-0.2) K/uL Sodium 142 (136-145) mmol/L Potassium 3.9 (3.5-5.1) mmol/L Chloride 110 H (98-107) mmol/L Carbon Dioxide 22 (21-32) mmol/L Anion Gap 10.0 (3-11) BUN 46 H (7-18) mg/dl Creatinine 3.06 H (0.6-1.2) mg/dl Est Cr Clr Drug Dosing 16.3 ml/min Est GFR ( Amer) 15.8 Est GFR (Non-Af Amer) 13.7 BUN/Creatinine Ratio 15.1 (10-20) Glucose 155 H (70-99) mg/dl POC Lactic Acid Christian (0.90-1.70) mmol/L Lactate (0.4-2.0) mmol/L Calcium 8.8 (8.5-10.1) mg/dl Magnesium 2.0 (1.8-2.4) mg/dl Total Bilirubin 0.3 (0.2-1) mg/dl AST 14 L (15-37) U/L ALT 16 (12-78) U/L Alkaline Phosphatase 57 (45-117) U/L Troponin I 0.020 (0-0.045) ng/ml Total Protein 5.8 L (6.4-8.2) gm/dl Albumin 2.9 L (3.4-5.0) gm/dl Globulin 2.9 (2.5-4.0) gm/dl Albumin/Globulin Ratio 1.0 (0.9-2) Lipase 76 (73-393) U/L Diagnostic Findings CT abd/ pelvis: FINDINGS: Lung bases are unremarkable. No pneumatosis, free air or portal venous gas is present. Note is made of a colectomy with right lower quadrant ileostomy. A parastomal hernia contains multiple small bowel loops. The proximal to mid small bowel is moderately dilated and fluid-filled. There is stool within a small bowel loop within the parastomal hernia. The transition point is likely within the parastomal hernia although difficult to assess on this unenhanced examination. There is mild associated mesenteric infiltration and trace ascites. Slight prominence of the right collecting system is noted without chantell hydronep hrosis. No lymphadenopathy is present. Evaluation of the abdomen and pelvis is suboptimal on this unenhanced exam. The liver, spleen, adrenal glands and pancreas are unremarkable with exception of pancreatic glandular atrophy. IMPRESSION: Findings consistent with a moderate grade small bowel obstruction with transition point likely within a parastomal hernia of the right lower quadrant ileostomy. Trace associated ascites and mesenteric infiltration.
[2019-07-23] MEDS ORDERED: CARBOHYDRATES FOR HYPOGLYCEMIA PO PRN (13:08)
[2019-07-23] MEDS ORDERED: GLUCAGON FOR INJ 1 MG VIAL SQ PRN (13:08)
[2019-07-23] MEDS ORDERED: GLUCOSE 10 TABS/TUBE PO PRN (13:08)
[2019-07-23] MEDS ORDERED: STAT IV STA (13:08)
[2019-07-23] MEDS ORDERED: GLUCOSE 40% GEL 15 GM TUBE PO PRN (13:08)
[2019-07-23] MEDS ORDERED: DEXTROSE 50% 50 ML SYRINGE IV PRN (13:08)
[2019-07-23] MEDS: INSULIN ASPART 100 UNITS/ML 3 ML PEN SC SCH ×2 (14:08→17:42)
[2019-07-23] MEDS: PANTOprazole 40 MG in SYRINGE 0 ML IV SCH (14:16)
[2019-07-23] MEDS: DORZOLAMIDE HCL 2% OPH SOLN 10 ML BTL OPR SCH ×2 (14:18→20:37)
[2019-07-23] MEDS: FLUTICASONE/VILANTEROL 100/25MCG 14 PUFFS/INHALER INH SCH (14:23)
[2019-07-23] MEDS: BRIMONIDINE TARTRATE 0.2% 5ML OPB SCH ×2 (14:23→20:38)
[2019-07-23] MEDS ORDERED: Nursing to Pharmacy Communication ONE (19:23)
[2019-07-23] MEDS: HEPARIN SOD 5,000 UNIT/0.5 ML VIAL SQ SCH (20:40)
[2019-07-23] MEDS: ALBUTEROL HFA 8 GM INHALER INH PRN (21:18)
[2019-07-24] MEDS: INSULIN ASPART 100 UNITS/ML 3 ML PEN SC SCH ×5 (00:15→21:09)
[2019-07-24] MEDS: SODIUM BICARBONATE 8.4% 50 MEQ in SODIUM CHLORIDE 0.45 % 1,000 ML IV SCH ×2 (01:02→15:33)
[2019-07-24] MEDS ORDERED: HEPARIN 100 UNIT/ML 5ML FLUSH FLUSH PRN (01:15)
[2019-07-24 06:03] LABS: Hemoglobin 10.5 g/dL (12.0-16.0); Mean Corpuscular Hemoglobin 31.3 pg (25-34); Mean Corpuscular Hgb Conc 31.8 g/dL (32-36); Mean Corpuscular Volume 98.5 fL (80-100); Mean Platelet Volume 10.3 fL (7.4-10.4); Platelet Count 175 K/uL (130-400); RDW Coefficient of Variation 13.1 % (11.5-14.5); RDW Standard Deviation 47.2 fL (36.4-46.3); Red Blood Count 3.35 M/uL (4.2-5.4); White Blood Count 7.33 K/uL (4.8-10.8)
[2019-07-24 06:30] LABS: BUN Creatinine Ratio 16.9 (10-20); Calcium 8.2 mg/dl (8.5-10.1); Est GFR (African American) 17.4; Potassium 4.2 mmol/L (3.5-5.1)
[2019-07-24 06:36] LABS: Basophils # (auto) 0.04 K/uL (0-0.2); Basophils % (auto) 0.5 %; Eosinophils # (auto) 0.04 K/uL (0-0.5); Eosinophils % (auto) 0.5 %; Immature Granulocytes # (auto) 0.01 K/uL (0.00-0.02); Immature Granulocytes % (auto) 0.1 %; Lymphocytes # (auto) 0.99 K/uL (1.2-3.4); Lymphocytes % (auto) 13.5 %; Monocytes # (auto) 0.99 K/uL (0.11-0.59); Monocytes % (auto) 13.5 %; Neutrophils # (auto) 5.26 K/uL (1.4-6.5); Neutrophils % (auto) 71.9 %
[2019-07-24] MEDS: HydrALAZINE HCL 20 MG/ML VIAL IV PRN ×2 (07:29→15:57)
[2019-07-24] MEDS: FLUTICASONE/VILANTEROL 100/25MCG 14 PUFFS/INHALER INH SCH (08:41)
[2019-07-24] MEDS: BRIMONIDINE TARTRATE 0.2% 5ML OPB SCH ×2 (08:42→21:00)
[2019-07-24] MEDS: DORZOLAMIDE HCL 2% OPH SOLN 10 ML BTL OPR SCH ×2 (08:42→21:00)
[2019-07-24] MEDS: HEPARIN SOD 5,000 UNIT/0.5 ML VIAL SQ SCH ×2 (08:43→21:03)
[2019-07-24] MEDS ORDERED: METOPROLOL TARTRATE 1 MG/ML VIAL IV STA ×2 (09:07→11:59)
[2019-07-24] MEDS ORDERED: METOPROLOL TARTRATE 1 MG/ML VIAL IV ONE (09:14)
--- NOTE | 2019-07-24 12:18 | Surgery Progress Note ---
Date of Service doing better, no abdominal pain, no nausea, no vomiting, stoma is working, some stool in bag, NG 200ml/day, July 24, 2019 Assessment & Plan (1) Parastomal hernia: Multiple prior episodes of parastomal hernia also. This time, appears to be involved in small bowel obstruction. Discussed initial conservative management with ng decompression, bowel rest. Able to partially reduce hernia today, will need re-attempt tomorrow after decompression. No signs of strangulation and given her complicated history with three prior moves of ileostomy, would prefer to avoid surgery if at all possible. If she does not resolve, discussed transfer as her case will be complicated given the multiple prior abdominal operations, her obesity and this being the fourth revision of her ostomy. she is agreeable to plan. 07/24/2019 12:21PM doing fine, SBO resolved D/C NG clear diet will F/U (2) SBO (small bowel obstruction): see above. Physical Exam Constitutional: WD/WN, vitals as above well developed and well nourished Eyes: PERRL, conjunctivae normal, anicteric sclerae ENMT: external ear and nose normal, oropharynx normal Neck: trachea midline, no thyromegaly Respiratory: normal respiratory effort, lungs clear to auscultation Cardiovascular: RRR, no murmur, no edema Gastrointestinal (Abdomen): normal bowel sounds, soft, nontender, no hepatosplenomegaly Percussion/Palpation: abdomen soft NT, ND, no mass, BS +, stoma working, Musculoskeletal: no cyanosis or clubbing, extremities motor strength 5/5 Skin: no rashes, warm and dry Neurologic: awake Psychiatric: Orientation: alert and oriented x 3 Results & Data Vital Signs (Past 12 Hours) Vital Signs Temp Pulse Pulse Resp BP BP Pulse Ox 07/24/19 11:12 36.6 C 83 18 186/75 H 93 07/24/19 10:00 85 18 93 07/24/19 09:43 83 164/75 H 07/24/19 09:16 98 H 190/74 H 07/24/19 09:00 98 H 190/74 H 07/24/19 07:28 36.9 C 125 H 18 216/79 H 100 07/24/19 04:27 37.0 C 90 100 H 20 178/78 H 94 Laboratory Results Abnormal lab results 07/23/19 07/23/19 07/24/19 Range/Units 13:33 16:29 00:05 RBC (4.2-5.4) M/uL Hgb (12.0-16.0) g/dL Hct (37-47) % MCHC (32-36) g/dL RDW Std Deviation (36.4-46.3) fL Lymph # (Auto) (1.2-3.4) K/uL [place] # (Auto) (0.11-0.59) K/uL Chloride (98-107) mmol/L BUN (7-18) mg/dl Creatinine (0.6-1.2) mg/dl Glucose (70-99) mg/dl POC Glucose 154 H 139 H 128 H (70-99) mg/dl Calcium (8.5-10.1) mg/dl 07/24/19 07/24/19 07/24/19 Range/Units 05:37 05:37 06:06 RBC 3.35 L (4.2-5.4) M/uL Hgb 10.5 L (12.0-16.0) g/dL Hct 33.0 L (37-47) % MCHC 31.8 L (32-36) g/dL RDW Std Deviation 47.2 H (36.4-46.3) fL Lymph # (Auto) 0.99 L (1.2-3.4) K/uL [place] # (Auto) 0.99 H (0.11-0.59) K/uL Chloride 109 H (98-107) mmol/L BUN 48 H (7-18) mg/dl Creatinine 2.83 H (0.6-1.2) mg/dl Glucose 149 H (70-99) mg/dl POC Glucose 145 H (70-99) mg/dl Calcium 8.2 L (8.5-10.1) mg/dl 07/24/19 Range/Units 12:03 RBC (4.2-5.4) M/uL Hgb (12.0-16.0) g/dL Hct (37-47) % MCHC (32-36) g/dL RDW Std Deviation (36.4-46.3) fL Lymph # (Auto) (1.2-3.4) K/uL [place] # (Auto) (0.11-0.59) K/uL Chloride (98-107) mmol/L BUN (7-18) mg/dl Creatinine (0.6-1.2) mg/dl Glucose (70-99) mg/dl POC Glucose 157 H (70-99) mg/dl Calcium (8.5-10.1) mg/dl
[2019-07-24] MEDS: PANTOprazole 40 MG in SYRINGE 0 ML IV SCH (12:19)
[2019-07-24] MEDS: METOPROLOL TARTRATE 25 MG TAB PO SCH ×2 (12:19→21:05)
[2019-07-24] MEDS ORDERED: Nursing to Pharmacy Communication ONE (12:23)
--- NOTE | 2019-07-24 13:51 | Hospitalist Progress Note ---
Date of Service July 24, 2019 Assessment & Plan (1) SBO (small bowel obstruction): 79-year-old female was admitted on 23 Jul 2019 after c/o N/V and abdominal pain. Found to have an SBO with parastomal hernia. Small bowel obstruction, parastomal hernia: -PMH ulcerative colitis and prior bowel resection with ileostomy (1993). Multiple revisions since then. -C/o abd pain with non-bloody N/V -CT a/p suggestive of a moderate grade SBO with transition point at the p arastomal hernia. Trace ascites and mesenteric infiltration. -Appreciate general surgery recs: -07/22: -NGT placement with intermittent suction. Output of 200cc since then. Morphine and Zofran (both prn) for symptom control. -Surgery to monitor for need to reduce hernia once more, consideration of transfer to tertiary care hospital if worsening symptoms. -07/23: -"doing fine, SBO resolved, D/C NG, clear diet, will F/U" Hypertensive urgency: -ED BP as high as 235/108. -At home, on metoprolol 12.5 mg BID, but missed two doses due to GI symptoms. -PRN Hydralazine 10mg q6h ordered for SBP >180. -Also received periodic Lopressor 5mg as needed for continued elevations between hydralazine doses while NPO -continue home metoprolol 12.5mg BID now that diet is advancing per surgery recs HLD, CHF: -August 2017 echo EF 50-55%, LVSF low normal, mild MR & TR. -Held home bumetanide prn. -Will watch volume status. DM2: -May 2018 HbA1c 6.2. Repeat currently pending. -Home lantus held, ISS -Held home ASA 81. CKD stage V: -Follows with Dr. Reyes (nephro) as outpatient. -Patient says would decline dialysis if needed. -Baseline Cr ~3.0 -on sodium bicarb 650 mg daily at home, infused with fluids while hospitalized Anemia: - Admit Hb 10.6. -Baseline around there. -Continue home iron. Asthma: -On home symbicort and albuterol prn. -Continue home zafirlukast PO. Left leg DVT, Protein S deficiency: -Not on chronic anticoagulation. GERD: -Continue IV pantoprazole 40 mg until able to tolerate PO Hyponatremia: -Admit Na 142. -appears resolved CVA 2018: -Some residual LE weakness. Depression: -continue home buproprion. Left breast cancer (2005, 2012): -Hx radiation and lumpectomy. Continue home anastrozole. Rheumatoid arthritis: -continue home prednisone 5 mg daily. Glaucoma: -On home brimonidine and dorzolamide. Lung nodule: -Has been followed with thoracic surgery. -Patient says next scan around Sep 2019. Code status: Full code. Diet: Clear Liquids. On 03/02 NS + 50 meq bicarb at 75 mL/hr. DVT prophy: SCDs for now. PT/OT: Ordered. Dispo: Admit to med surg telemetry. Lives at home with . (2) Parastomal hernia: (3) Hypertensive urgency: (4) Hyperlipidemia: (5) CHF (congestive heart failure): (6) Diabetes mellitus, type 2: (7) Chronic kidney disease, stage V: (8) Anemia: (9) Asthma: (10) History of DVT (deep vein thrombosis): (11) Ulcerative colitis: (12) GERD (gastroesophageal reflux disease): (13) Hyponatremia: (14) History of CVA (cerebrovascular accident): (15) Depression: (16) Breast cancer, left breast: (17) Rheumatoid arthritis: (18) Glaucoma: (19) Lung nodule: Admission and Anticipated Discharge Date Admission Date: July 23, 2019 Supervising Physician Co-Signing Physician Notes Patient seen and examined with Dr Elam. . I agree with their exam findings, review of systems, assessment and plan. I have personally reviewed the lab work and imaging from today. patient feeling better, she had two BM, no nausea, NGT is out and hernia reducible on liquid diet appreciate surgery consult Exam: obese, no distress lungs CTA bilaterally, normal effort heart regular S1/S2, no murmures abdomen with stoma, multiple scars, + bowel sounds, non tender - Small bowel obstruction, parastomal hernia resolving, NGT is out, successfully decompressed in past 24 hours tolerating liquid diet, advance as tolerated possible d/c to home tomorrow - HTN: resume home regimen of Lopressor, monitor for response Subjective Pt seen this AM. States that her nausea and vomitting has resolved and that she has had BMs. However, she was reluctant to start advancing her diet, stating that she could probably try later in the day. States she has a chronic cough but denies runny nose or sore throat. Denies any headache, changes to vision, dizziness, weakness, chest pain, SOB, palpitations, abdominal pain, diarrhea or constipation, swelling in hands or feet or numbness or tingling anywhere. Review of Systems Review of Systems: All systems reviewed & are unremarkable except as noted in HPI & below Physical Exam Physical Exam: General: Alert, oriented. No acute distress laying in bed with NG tube in nares. Skin: No noted rashes or bruises Psych: Appropriate mood and affect Neuro: No gross deficits HEENT: NC/AT, NG tube in nares Chest: Nontender to palpation. CV: RRR, Normal s1, s2. No murmurs appreciated Resp: Breath sounds clear bilaterally, no increased effort of breathing. Abdomen: BS somewhat decreased. Soft, nontender, nondistended. No guarding. Bag noted. Extremities: No edema in lower extremities bilaterally. Results & Data Results & Data ([facility]) Vital Signs (Past 12 Hours) Vital Signs Temp Pulse Pulse Resp BP BP Pulse Ox 07/24/19 12:16 83 186/75 H 07/24/19 11:12 36.6 C 83 18 186/75 H 93 07/24/19 10:00 85 18 93 07/24/19 09:43 83 164/75 H 07/24/19 09:16 98 H 190/74 H 07/24/19 09:00 98 H 190/74 H 07/24/19 07:28 36.9 C 125 H 18 216/79 H 100 07/24/19 04:27 37.0 C 90 100 H 20 178/78 H 94 Resident Activity Tracking Resident Involvement: Resident Care Provided Care Provided: Adult Hospital Medicine
[2019-07-24] MEDS: BuPROPion XL 300 MG TABCR PO SCH (15:32)
[2019-07-24] MEDS: predniSONE 5 MG TAB PO SCH (15:33)
[2019-07-24] MEDS: FERROUS SULFATE 325 MG TAB PO SCH (17:13)
[2019-07-24] MEDS ORDERED: NON-FORMULARY MEDICATION (Zafirlukast 20 MG) PO SCH (21:00)
--- NOTE | 2019-07-24 21:24 | Billing Data ---
Date of Service July 24, 2019 Coding Level of Care Code 87973 Subseq Hosp Care Lvl 2
[2019-07-25] MEDS: SODIUM BICARBONATE 8.4% 50 MEQ in SODIUM CHLORIDE 0.45 % 1,000 ML IV SCH ×2 (04:38→18:46)
[2019-07-25 06:07] LABS: Basophils # (auto) 0.03 K/uL (0-0.2); Basophils % (auto) 0.6 %; Eosinophils # (auto) 0.11 K/uL (0-0.5); Hematocrit (blood only) 28.8 % (37-47); Hemoglobin 9.3 g/dL (12.0-16.0); Immature Granulocytes # (auto) 0.01 K/uL (0.00-0.02); Immature Granulocytes % (auto) 0.2 %; Lymphocytes % (auto) 27.5 %; Mean Corpuscular Hemoglobin 31.8 pg (25-34); Mean Corpuscular Hgb Conc 32.3 g/dL (32-36); Mean Corpuscular Volume 98.6 fL (80-100); Mean Platelet Volume 10.2 fL (7.4-10.4); Monocytes # (auto) 0.88 K/uL (0.11-0.59); Monocytes % (auto) 16.1 %; Neutrophils # (auto) 2.92 K/uL (1.4-6.5); Neutrophils % (auto) 53.6 %; Platelet Count 167 K/uL (130-400); RDW Coefficient of Variation 13.1 % (11.5-14.5); RDW Standard Deviation 47.6 fL (36.4-46.3); Red Blood Count 2.92 M/uL (4.2-5.4); White Blood Count 5.45 K/uL (4.8-10.8)
[2019-07-25 06:40] LABS: Estimated Average Glucose 123 mg/dl; Hemoglobin A1C 5.9 % (4.5-5.6)
[2019-07-25 06:41] LABS: BUN Creatinine Ratio 15.3 (10-20); Calcium 8.4 mg/dl (8.5-10.1); Creatinine Clr Calc Pharmacy 16.4 ml/min; Est GFR (African American) 15.6; Est GFR (Non-African American) 13.5; Potassium 3.6 mmol/L (3.5-5.1)
[2019-07-25] MEDS: METOPROLOL TARTRATE 25 MG TAB PO SCH ×2 (08:38→20:05)
[2019-07-25] MEDS: BuPROPion XL 300 MG TABCR PO SCH (08:39)
[2019-07-25] MEDS: FERROUS SULFATE 325 MG TAB PO SCH ×2 (08:39→17:49)
[2019-07-25] MEDS: predniSONE 5 MG TAB PO SCH (08:39)
[2019-07-25] MEDS: ANASTROZOLE 1 MG TAB PO SCH (08:39)
[2019-07-25] MEDS: ASPIRIN 81 MG ECTAB PO SCH (08:40)
[2019-07-25] MEDS: DORZOLAMIDE HCL 2% OPH SOLN 10 ML BTL OPR SCH ×2 (08:41→20:04)
[2019-07-25] MEDS: BRIMONIDINE TARTRATE 0.2% 5ML OPB SCH ×2 (08:41→20:34)
[2019-07-25] MEDS: FLUTICASONE/VILANTEROL 100/25MCG 14 PUFFS/INHALER INH SCH (08:42)
[2019-07-25] MEDS: HEPARIN SOD 5,000 UNIT/0.5 ML VIAL SQ SCH ×2 (08:43→20:06)
[2019-07-25] MEDS: INSULIN ASPART 100 UNITS/ML 3 ML PEN SC SCH ×4 (08:45→20:06)
[2019-07-25] MEDS: HydrALAZINE HCL 20 MG/ML VIAL IV PRN (12:04)
[2019-07-25] MEDS: PANTOprazole 40 MG in SYRINGE 0 ML IV SCH (12:05)
--- NOTE | 2019-07-25 13:23 | Hospitalist Progress Note ---
Date of Service July 25, 2019 Assessment & Plan (1) SBO (small bowel obstruction): 79-year-old female was admitted on 23 Jul 2019 after c/o N/V and abdominal pain. Found to have an SBO with parastomal hernia. Small bowel obstruction, parastomal hernia: -PMH ulcerative colitis and prior bowel resection with ileostomy (1993). Multiple revisions since then. -C/o abd pain with non-bloody N/V -CT a/p suggestive of a moderate grade SBO with transition point at the p arastomal hernia. Trace ascites and mesenteric infiltration. -Appreciate general surgery recs: -07/22: -NGT placement with intermittent suction. Output of 200cc since then. Morphine and Zofran (both prn) for symptom control. -Surgery to monitor for need to reduce hernia once more, consideration of transfer to tertiary care hospital if worsening symptoms. -07/23: -"doing fine, SBO resolved, D/C NG, clear diet, will F/U" -07/24: advancing diet to full liquids -continue to advance diet Hypertensive urgency: -ED BP as high as 235/108. -At home, on metoprolol 12.5 mg BID, but missed two doses due to GI symptoms. -PRN Hydralazine 10mg q6h ordered for SBP >180. -Also received periodic Lopressor 5mg as needed for continued elevations between hydralazine doses while NPO -continue home metoprolol 12.5mg BID now that diet is advancing per surgery recs HLD, CHF: -August 2017 echo EF 50-55%, LVSF low normal, mild MR & TR. -Held home bumetanide prn. -Will watch volume status. DM2: -May 2018 HbA1c 6.2. Repeat currently pending. -Home lantus held, ISS -Held home ASA 81. CKD stage V: -Follows with Dr. Reyes (nephro) as outpatient. -Patient says would decline dialysis if needed. -Baseline Cr ~3.0 -on sodium bicarb 650 mg daily at home, infused with fluids while hospitalized Anemia: - Admit Hb 10.6. -Baseline around there. -Continue home iron. Asthma: -On home symbicort and albuterol prn. -Continue home zafirlukast PO. Left leg DVT, Protein S deficiency: -Not on chronic anticoagulation. GERD: -Continue IV pantoprazole 40 mg until able to tolerate PO Hyponatremia: -Admit Na 142. -appears resolved CVA 2018: -Some residual LE weakness. Depression: -continue home buproprion. Left breast cancer (2005, 2012): -Hx radiation and lumpectomy. Continue home anastrozole. Rheumatoid arthritis: -continue home prednisone 5 mg daily. Glaucoma: -On home brimonidine and dorzolamide. Lung nodule: -Has been followed with thoracic surgery. -Patient says next scan around Sep 2019. Code status: Full code. Diet: Clear Liquids. On 03/02 NS + 50 meq bicarb at 75 mL/hr. DVT prophy: SCDs for now. PT/OT: Ordered. Dispo: Admit to med surg telemetry. Lives at home with . (2) Parastomal hernia: (3) Hypertensive urgency: (4) Hyperlipidemia: (5) CHF (congestive heart failure): (6) Diabetes mellitus, type 2: (7) Chronic kidney disease, stage V: (8) Anemia: (9) Asthma: (10) History of DVT (deep vein thrombosis): (11) Ulcerative colitis: (12) GERD (gastroesophageal reflux disease): (13) Hyponatremia: (14) History of CVA (cerebrovascular accident): (15) Depression: (16) Breast cancer, left breast: (17) Rheumatoid arthritis: (18) Glaucoma: (19) Lung nodule: Admission and Anticipated Discharge Date Admission Date: July 23, 2019 Supervising Physician Co-Signing Physician Notes I personally examined the patient and verified all delatorre points of history and exam, discussed case, and agree with decision making with Dr Wolff. feeling better tolerated full liquids well no pain no nausea no vomiting - Small bowel obstruction, parastomal hernia advance diet to low fiber - HTN: BP better controled -DM: glucoses reasonable continue current care - DVT proph: heparin SQ otherwise as above hopefully home 07/25 Subjective Pt seen this AM, sitting in chair at bedside. No acute events overnight. States she is doing better, tolerated clear liquids well. Denies any N/V or abdominal pain this AM. Review of Systems Review of Systems: All systems reviewed & are unremarkable except as noted in HPI & below Physical Exam Physical Exam: General: Alert, oriented. No acute distress laying in bed with NG tube in nares. Skin: No noted rashes or bruises Psych: Appropriate mood and affect Neuro: No gross deficits HEENT: NC/AT, NG tube in nares Chest: Nontender to palpation. CV: RRR, Normal s1, s2. No murmurs appreciated Resp: Breath sounds clear bilaterally, no increased effort of breathing. Abdomen: BS somewhat decreased. Soft, nontender, nondistended. No guarding. Bag noted. Extremities: No edema in lower extremities bilaterally. Results & Data Results & Data ([facility]) Vital Signs (Past 12 Hours) Vital Signs Temp Pulse Pulse Resp BP Pulse Ox 07/25/19 11:42 36.9 C 70 18 198/72 H 95 07/25/19 08:40 80 07/25/19 07:15 36.5 C 83 18 199/71 H 94 07/25/19 04:14 84 07/25/19 04:10 36.8 C 78 19 150/68 H 95 Resident Activity Tracking Resident Involvement: Resident Care Provided Care Provided: Adult Hospital Medicine
--- NOTE | 2019-07-25 14:29 | Surgery Progress Note ---
Date of Service July 25, 2019 Assessment & Plan (1) Parastomal hernia: Multiple prior episodes of parastomal hernia also with revision multiple times. SBO secondary to parastomal hernia, no resolved with functioning ostomy -vitals stable other than hypertension - Colostomy output 925 mls last 24 hours - abdominal pain resolved Plan: No surgical intervention required at this time as hernia reduced and SBO resolved may advance to full liquids continue medical mangement (2) SBO (small bowel obstruction): resolved see above. Dr. Christianson has seen patient and agrees with above Subjective feeling well this morning denies abdominal pain, nausea or vomiting ostomy functioning and emptied this morning tolerated clear liquids this am Physical Exam Constitutional: WD/WN, vitals as above + morbidly obese; no acute distress and not ill appearing Gastrointestinal (Abdomen): Inspection/Auscultation: abdomen normal to inspection; abdomen not distended Percussion/Palpation: abdomen soft; abdomen nontender, no guarding and abdomen not rigid right lower quadrant ostomy with air and liquid stool present, parastomal hernia reduced, nontender on palpation surrounding entire ostomy Skin: no rashes, warm and dry Psychiatric: Orientation: alert and oriented x 3 Results & Data Vital Signs (Past 12 Hours) Vital Signs Temp Pulse Pulse Resp BP Pulse Ox 07/25/19 11:42 36.9 C 70 18 198/72 H 95 07/25/19 08:40 80 07/25/19 07:15 36.5 C 83 18 199/71 H 94 07/25/19 04:14 84 07/25/19 04:10 36.8 C 78 19 150/68 H 95 Laboratory Results 07/25/19 07/25/19 07/25/19 Range/Units 11:50 07:37 05:19 WBC 5.45 (4.8-10.8) K/uL RBC 2.92 L (4.2-5.4) M/uL Hgb 9.3 L (12.0-16.0) g/dL Hct 28.8 L (37-47) % MCV 98.6 (80-100) fL MCH 31.8 (25-34) pg MCHC 32.3 (32-36) g/dL RDW Std Deviation 47.6 H (36.4-46.3) fL RDW Coeff of Michelle 13.1 (11.5-14.5) % Plt Count 167 (130-400) K/uL MPV 10.2 (7.4-10.4) fL Immature Gran % (Auto) 0.2 % Neut % (Auto) 53.6 % Lymph % (Auto) 27.5 % Hodgeman % (Auto) 16.1 % Eos % (Auto) 2.0 % Baso % (Auto) 0.6 % Immature Gran # (Auto) 0.01 (0.00-0.02) K/uL Neut # (Auto) 2.92 (1.4-6.5) K/uL Lymph # (Auto) 1.50 (1.2-3.4) K/uL Hodgeman # (Auto) 0.88 H (0.11-0.59) K/uL Eos # (Auto) 0.11 (0-0.5) K/uL Baso # (Auto) 0.03 (0-0.2) K/uL Sodium (136-145) mmol/L Potassium (3.5-5.1) mmol/L Chloride (98-107) mmol/L Carbon Dioxide (21-32) mmol/L Anion Gap (3-11) BUN (7-18) mg/dl Creatinine (0.6-1.2) mg/dl Est Cr Clr Drug Dosing ml/min Est GFR ( Amer) Est GFR (Non-Af Amer) BUN/Creatinine Ratio (10-20) Glucose (70-99) mg/dl POC Glucose 135 H 96 (70-99) mg/dl Estimat Average Glucose mg/dl Hemoglobin A1c (4.5-5.6) % Calcium (8.5-10.1) mg/dl 07/25/19 07/24/19 07/24/19 Range/Units 05:19 20:16 17:01 WBC (4.8-10.8) K/uL RBC (4.2-5.4) M/uL Hgb (12.0-16.0) g/dL Hct (37-47) % MCV (80-100) fL MCH (25-34) pg MCHC (32-36) g/dL RDW Std Deviation (36.4-46.3) fL RDW Coeff of Michelle (11.5-14.5) % Plt Count (130-400) K/uL MPV (7.4-10.4) fL Immature Gran % (Auto) % Neut % (Auto) % Lymph % (Auto) % Hodgeman % (Auto) % Eos % (Auto) % Baso % (Auto) % Immature Gran # (Auto) (0.00-0.02) K/uL Neut # (Auto) (1.4-6.5) K/uL Lymph # (Auto) (1.2-3.4) K/uL Hodgeman # (Auto) (0.11-0.59) K/uL Eos # (Auto) (0-0.5) K/uL Baso # (Auto) (0-0.2) K/uL Sodium 137 (136-145) mmol/L Potassium 3.6 (3.5-5.1) mmol/L Chloride 106 (98-107) mmol/L Carbon Dioxide 25 (21-32) mmol/L Anion Gap 6.0 (3-11) BUN 47 H (7-18) mg/dl Creatinine 3.09 H (0.6-1.2) mg/dl Est Cr Clr Drug Dosing 16.4 ml/min Est GFR ( Amer) 15.6 Est GFR (Non-Af Amer) 13.5 BUN/Creatinine Ratio 15.3 (10-20) Glucose 98 (70-99) mg/dl POC Glucose 151 H 104 H (70-99) mg/dl Estimat Average Glucose mg/dl Hemoglobin A1c (4.5-5.6) % Calcium 8.4 L (8.5-10.1) mg/dl 07/24/19 07/24/19 07/24/19 Range/Units 05:37 05:37 05:37 WBC 7.33 (4.8-10.8) K/uL RBC 3.35 L (4.2-5.4) M/uL Hgb 10.5 L (12.0-16.0) g/dL Hct 33.0 L (37-47) % MCV 98.5 (80-100) fL MCH 31.3 (25-34) pg MCHC 31.8 L (32-36) g/dL RDW Std Deviation 47.2 H (36.4-46.3) fL RDW Coeff of Michelle 13.1 (11.5-14.5) % Plt Count 175 (130-400) K/uL MPV 10.3 (7.4-10.4) fL Immature Gran % (Auto) 0.1 % Neut % (Auto) 71.9 % Lymph % (Auto) 13.5 % Hodgeman % (Auto) 13.5 % Eos % (Auto) 0.5 % Baso % (Auto) 0.5 % Immature Gran # (Auto) 0.01 (0.00-0.02) K/uL Neut # (Auto) 5.26 (1.4-6.5) K/uL Lymph # (Auto) 0.99 L (1.2-3.4) K/uL Hodgeman # (Auto) 0.99 H (0.11-0.59) K/uL Eos # (Auto) 0.04 (0-0.5) K/uL Baso # (Auto) 0.04 (0-0.2) K/uL Sodium 140 (136-145) mmol/L Potassium 4.2 (3.5-5.1) mmol/L Chloride 109 H (98-107) mmol/L Carbon Dioxide 24 (21-32) mmol/L Anion Gap 7.0 (3-11) BUN 48 H (7-18) mg/dl Creatinine 2.83 H (0.6-1.2) mg/dl Est Cr Clr Drug Dosing 18.0 ml/min Est GFR ( Amer) 17.4 Est GFR (Non-Af Amer) 15.0 BUN/Creatinine Ratio 16.9 (10-20) Glucose 149 H (70-99) mg/dl POC Glucose (70-99) mg/dl Estimat Average Glucose 123 mg/dl Hemoglobin A1c 5.9 H (4.5-5.6) % Calcium 8.2 L (8.5-10.1) mg/dl
--- NOTE | 2019-07-25 17:56 | Billing Data ---
Date of Service July 25, 2019 Coding Level of Care Code 33017 Subseq Hosp Care Lvl 3
[2019-07-25] MEDS ORDERED: MONTELUKAST SODIUM 10 MG TABLET PO SCH (21:00)
--- NOTE | 2019-07-25 22:55 | Billing Data ---
Date of Service July 23, 2019 Coding Level of Care Code 90464 Initial Inpt Care Lvl 3
[2019-07-26 06:43] LABS: BUN Creatinine Ratio 12.1 (10-20); Calcium 8.6 mg/dl (8.5-10.1); Creatinine Clr Calc Pharmacy 15.7 ml/min; Est GFR (African American) 14.8; Est GFR (Non-African American) 12.7; Potassium 3.6 mmol/L (3.5-5.1)
[2019-07-26] MEDS: FERROUS SULFATE 325 MG TAB PO SCH (08:00)
[2019-07-26] MEDS: SODIUM BICARBONATE 8.4% 50 MEQ in SODIUM CHLORIDE 0.45 % 1,000 ML IV SCH (08:00)
[2019-07-26] MEDS: FLUTICASONE/VILANTEROL 100/25MCG 14 PUFFS/INHALER INH SCH (08:01)
[2019-07-26] MEDS: BRIMONIDINE TARTRATE 0.2% 5ML OPB SCH (08:01)
[2019-07-26] MEDS: ANASTROZOLE 1 MG TAB PO SCH (08:01)
[2019-07-26] MEDS: METOPROLOL TARTRATE 25 MG TAB PO SCH (08:02)
[2019-07-26] MEDS: ASPIRIN 81 MG ECTAB PO SCH (08:02)
[2019-07-26] MEDS: HEPARIN SOD 5,000 UNIT/0.5 ML VIAL SQ SCH (08:02)
[2019-07-26] MEDS: predniSONE 5 MG TAB PO SCH (08:03)
[2019-07-26] MEDS: DORZOLAMIDE HCL 2% OPH SOLN 10 ML BTL OPR SCH (08:03)
[2019-07-26] MEDS: PANTOprazole 40 MG in SYRINGE 0 ML IV SCH (08:03)
[2019-07-26] MEDS: BuPROPion XL 300 MG TABCR PO SCH (08:03)
[2019-07-26] MEDS: INSULIN ASPART 100 UNITS/ML 3 ML PEN SC SCH ×2 (08:05→12:12)
[2019-07-26] MEDS: ALBUTEROL HFA 8 GM INHALER INH PRN (09:06)
--- NOTE | 2019-07-26 10:41 | Discharge Summary ---
Date of Service July 26, 2019 Admission HPI Per Admitting Provider 79-year-old female says beginning around noon yesterday she began to develop some acute on chronic generalized abdominal pain. Had a couple episodes of nonbloody emesis earlier this morning. Says that she had good stool ostomy output yesterday but none so far today. Otherwise, she denies any focal concerns to include any headache, blurry vision, numbness or tingling in her extremities, chest pain, shortness of breath, or other concerns. She does state that she has a chronic dry cough related to asthma. - Past medical history includes ulcerative colitis, hypertension, hyperlipidemia, CHF, diabetes type 2, CKD stage V, anemia, asthma, left leg DVT, protein S deficiency, GERD, hyponatremia, CVA 2017, depression, left-sided breast cancer status post radiation and lumpectomy, rheumatoid arthritis, glaucoma, lung nodule - Past surgical history includes bilateral cataracts, right inguinal hernia, appendectomy, bowel resection with ileostomy, breast biopsy and lumpectomy, EGD and colonoscopy, stomach abscess surgery, tooth extraction. - Social history includes quitting smoking 27 years ago, does not drink alcohol, lives at home with spouse. Principal Diagnosis Small Bowel Obstruction Discharge Exam General: Alert, oriented. No acute distress Skin: No noted rashes or bruises Psych: Appropriate mood and affect Neuro: No gross deficits HEENT: NC/AT Chest: Nontender to palpation. CV: RRR, Normal s1, s2. No murmurs appreciated Resp: Breath sounds coarse bilaterally, no increased effort of breathing. Abdomen: BS somewhat decreased. Soft, nontender, nondistended. No guarding. Bag noted. Extremities: 2+ edema in lower extremities bilaterally. Discharge Data Allergies Allergy/AdvReac Type Severity Reaction Status Date / Time Bactrim Allergy Severe dizzy,dyseq Verified 10/26/17 14:59 uilibrium bee venom protein (honey bee) Allergy Severe ANAPHYLAXIS Verified 07/23/19 05:13 cefaclor Allergy Severe stiff and Verified 07/23/19 05:13 sore muscles-PT DENIES lisinopril Allergy Severe tongue Verified 07/23/19 05:13 swelling diltiazem Allergy Intermediate rash Verified 07/23/19 05:13 Penicillins Allergy Mild RASH Verified 07/23/19 05:13 tetracycline Allergy Mild UNK-PT Verified 07/23/19 05:13 DENIES amoxicillin Allergy Unknown RASH Verified 07/23/19 05:13 baclofen Allergy Unknown Unknown Verified 07/23/19 05:13 cefuroxime Allergy Unknown TAST Verified 07/23/19 05:13 clavulanic acid Allergy Unknown ITCHING Verified 07/23/19 05:13 levofloxacin Allergy Unknown NAUSEA, Verified 07/23/19 05:13 DIZZINESS alendronate sodium AdvReac Intermediate FELT SICK Verified 07/23/19 05:13 Cipro AdvReac Intermediate LEGS ARMS Verified 10/26/17 14:59 STIFF, PAINFUL ciprofloxacin AdvReac Intermediate LEGS ARMS Verified 07/23/19 05:13 STIFF, PAINFUL doxycycline AdvReac Intermediate nausea and Verified 07/23/19 05:13 vomiting metformin AdvReac Intermediate CAUSED Verified 07/23/19 05:13 [employer] LACTIC ACID LEVELS tramadol AdvReac Intermediate DIZZINESS Verified 07/23/19 05:13 adhesive AdvReac Mild redness Verified 07/23/19 05:13 mercaptopurine AdvReac Mild MADE HER Verified 07/23/19 05:13 VERY ILL olmesartan AdvReac Mild HEADACHE Verified 07/23/19 05:13 Sulfa (Sulfonamide AdvReac Mild CAUSED Verified 07/23/19 05:13 Antibiotics) DIZZINESS sulfamethoxazole AdvReac Mild CAUSED Verified 07/23/19 05:13 DIZZINESS trimethoprim AdvReac Mild BACTRIM Verified 07/23/19 05:13 CAUSED DIZZINESS aspirin AdvReac Unknown CAUSES Verified 07/23/19 05:13 BRUISING Consultations 07/23/19 07:40 Consult General Surgery Stat 07/23/19 08:47 ED Decision to Admit Stat Ordered Studies 07/23/19 05:30 CT abd pelvis wo con Urgent Hospital Course (1) SBO (small bowel obstruction): 79-year-old female was admitted on 23 Jul 2019 after c/o N/V and abdominal pain. Found to have an SBO with parastomal hernia and discharged on July 26, 2019. Small bowel obstruction, parastomal hernia: -PMH ulcerative colitis and prior bowel resection with ileostomy (1993). Multiple revisions since then. -C/o abd pain with non-bloody N/V -CT a/p suggestive of a moderate grade SBO with transition point at the parastomal hernia. Trace ascites and mesenteric infiltration. -Seen by general surgery, recommended medical management -Pt did well with advancing of diet, discharged on low fiber diet and was tolerating well. Hypertensive urgency: -ED BP as high as 235/108. -At home, on metoprolol 12.5 mg BID, but missed two doses before admission due to GI symptoms. -PRN Hydralazine 10mg q6h ordered for SBP >180 while hospitalized -Also received periodic Lopressor 5mg as needed for continued elevations between hydralazine doses while NPO -discharged solely on home metoprolol 12.5mg BID and advised to f/u with PCP HLD, CHF: -August 2017 echo EF 50-55%, LVSF low normal, mild MR & TR. -Held home bumetanide prn which was restarted on discharge. DM2: -June 2019 HbA1c 5.9. -Home lantus and ASA 81 restarted on discharge CKD stage V: -Follows with Dr. Reyes (nephro) as outpatient. -Patient says would decline dialysis if needed. -Baseline Cr ~3.0 -on sodium bicarb 650 mg daily at home, infused with fluids while hospitalized Anemia: - Admit Hb 10.6. -Baseline around there. -Continue home iron. Asthma: -Continue home symbicort and albuterol prn. -Continue home zafirlukast PO. Left leg DVT, Protein S deficiency: -Not on chronic anticoagulation. GERD: -Continue IV pantoprazole 40 mg Hyponatremia: -Admit Na 142. -appears resolved CVA 2018: -Some residual LE weakness. Depression: -continue home buproprion. Left breast cancer (2005, 2012): -Hx radiation and lumpectomy. Continue home anastrozole. Rheumatoid arthritis: -continue home prednisone 5 mg daily. Glaucoma: -On home brimonidine and dorzolamide. Lung nodule: -Has been followed with thoracic surgery. -Patient says next scan around Sep 2019. (2) Parastomal hernia: (3) Hypertensive urgency: (4) Hyperlipidemia: (5) CHF (congestive heart failure): (6) Diabetes mellitus, type 2: (7) Chronic kidney disease, stage V: (8) Anemia: (9) Asthma: (10) History of DVT (deep vein thrombosis): (11) Ulcerative colitis: (12) GERD (gastroesophageal reflux disease): (13) Hyponatremia: (14) History of CVA (cerebrovascular accident): (15) Depression: (16) Breast cancer, left breast: (17) Rheumatoid arthritis: (18) Glaucoma: (19) Lung nodule: Total Time Total Time Spent Total Time Spent (In Minutes): See attending attestation Discharge Plan Discharge Items Patient Disposition: Home - Self-Care Reason For Visit: SMALL BOWEL OBSTRUCTION Discharge Diagnosis: Small Bowel Obstruction Hypertensive Urgency Activity: Per Instructions section Non-emergency contact: Primary Care Provider Call non-emergency contact if: your symptoms worsen and you have a fever Follow-up/Referrals: Se Tovar MD [Primary Care Provider] - Kristin Christianson MD [Physician] - 08/09/19 12:45 pm (Please, follow up at [facility] Office with Dr. Christianson on WednesdayAugust 08 at 12:45 pm. *The office is located at [address] [place] [address] in [place]. If you need to change this appointment, call the office at [phone].) Diet: Low Fiber Addtl Attending Provider Instructions: Ms. Elise, you were admitted with a small bowel obstruction and you got better. We are discharging you home and advise that when you get home you start with eating food that is low in fiber. If you tolerate that well like you did here (no nausea or vomitting or belly pain after you eat) then you can start eating your regular diet at home. We ask that you follow up with your primary care provider as soon as possible after discharge, especially regarding your blood pressure. Should your symptoms return or you develop fevers, chills or night sweats, nausea/vomiting, very severe abdominal pain or not putting out as much in your colostomy bag, please seek emergent medical care. It was a pleasure taking care of you during your stay here! Pending Studies at Discharge: No Stand-Alone Forms: [employer], Smoking Cessation Medications and DC Order Prescriptions: Continued sodium bicarbonate 650 mg tablet 650 mg PO DAILY Qty: 90 RF: 3 albuterol sulfate [Ventolin HFA] 90 mcg/actuation HFA aerosol inhaler 2 - 4 puff INHALATION QID PRN (Reason: Shortness Of Breath Or Wheezing) Qty: 3 RF: 3 bumetanide 0.5 mg tablet 0.5 mg PO DAILY PRN (Reason: Edema) RF: 0 Symbicort 80-4.5 mcg/actuation HFA aerosol inhaler 2 puff INHALATION BID Qty: 3 RF: 3 zafirlukast [Accolate] 20 mg tablet 20 mg PO Q12H Qty: 180 RF: 3 bupropion HCl 300 mg tablet extended release 24 hr 300 mg PO DAILY RF: 0 brimonidine 0.2 % drops 1 drp OPB BID RF: 0 dorzolamide 2 % drops 1 drp OPR BID RF: 0 ferrous sulfate 325 mg (65 mg iron) Tablet 325 mg PO BID Qty: 0 RF: 0 anastrozole 1 mg Tablet 1 mg PO QPM RF: 0 aspirin [Aspirin Low Dose] 81 mg Tablet,Delayed Release (Dr/Ec) 81 mg PO QPM RF: 0 multivitamin with minerals Tablet 1 tab PO QAM RF: 0 cholecalciferol (vitamin D3) 5,000 unit Capsule 5,000 unit PO QAM RF: 0 metoprolol tartrate 25 mg Tablet 12.5 mg PO BID RF: 0 calcium carbonate-vitamin D3 [Os-Conrad 500 + D3] 500 mg(1,250mg) -200 unit Tablet 1 tab PO QPM RF: 0 Lantus Solostar U-100 Insulin 100 unit/mL (3 mL) Insulin Pen 8 unit SUBCUT HS RF: 0 prednisone 5 mg Tablet 5 mg PO QAM RF: 0 pantoprazole 40 mg Tablet,Delayed Release (Dr/Ec) 40 mg PO QAM RF: 0 Discharge Orders: Discharge Order (Routine); Ordered 07/26/19 Ordered By: Leidy Wolff Admission Data Admit Date/Time: 07/23/19 09:26 Attending Provider: Anil Hernandez Admit Provider: Rodolfo Narvaez Primary Care Provider: Se Tovar Other Providers: Bria Bae ; Adiel Story ; Ottoniel Chun Other Interventions: Discharge Summary Assessment (RN) Last Done: 07/26/19 15:44 DC Date/Time DO NOT enter until pt leaves facility: 07/26/19 16:58 Supervising Physician Co-Signing Physician Notes I personally examined the patient and verified all delatorre points of history and exam, discussed case, and agree with decision making with Dr Wolff. ate low fiber well. no significant pain or nausea. feels up to going home and would like to go home. vitals noted nad heent nc at mmm breathing unlabored no accessory muscles good effort skin no rashes no pallor or icterus - Small bowel obstruction, parastomal hernia tolerating low fiber diet, stable for home, outpt f/u - HTN: home on home meds -DM: glucoses reasonable - home on home meds, A1c fairly tight - outpt f/u for ongoing titration of meds - DVT proph: heparin SQ utilized during her stay here otherwise as above Resident Activity Tracking Resident Involvement: Resident Care Provided Care Provided: Adult Hospital Medicine
--- NOTE | 2019-07-26 13:50 | Surgery Progress Note ---
Date of Service July 26, 2019 Assessment & Plan (1) Parastomal hernia: Multiple prior episodes of parastomal hernia also with revision multiple times. SBO secondary to parastomal hernia, no resolved with functioning ostomy - vitals stable - Colostomy output 900 mls in last 24 hours - abdominal pain resolved - tolerating low fiber diet Plan: no surgical intervention required, SBO resolved Okay from surgical standpoint for discharge Continue medical management our services signing off, please call with concerns (2) SBO (small bowel obstruction): resolved see above. Dr. Christianson has seen patient and agrees with above Subjective feeling well no abdominal pain, feels like she has to move her bowels ostomy functioning tolerated low fiber diet for dinner and breakfast no n/v Physical Exam Constitutional: WD/WN, vitals as above + morbidly obese; no acute distress Gastrointestinal (Abdomen): Inspection/Auscultation: abdomen normal to inspection; abdomen not distended Percussion/Palpation: abdomen soft; abdomen nontender, no guarding and abdomen not rigid ostomy in RLQ with stool and gas present parastomal hernia with no pain on palpation, reduced. Skin: no rashes, warm and dry Psychiatric: A+Ox3, euthymic affect Results & Data Vital Signs (Past 12 Hours) Vital Signs Temp Pulse Pulse Pulse Resp BP Pulse Ox 07/26/19 12:15 36.8 C 72 20 96 07/26/19 09:06 68 14 97 07/26/19 08:00 146/82 H 07/26/19 07:10 67 07/26/19 07:00 37.0 C 79 20 96 07/26/19 04:00 36.5 C 69 20 96 Laboratory Results 07/26/19 07/26/19 07/26/19 Range/Units 11:46 07:43 05:57 Sodium 136 (136-145) mmol/L Potassium 3.6 (3.5-5.1) mmol/L Chloride 104 (98-107) mmol/L Carbon Dioxide 22 (21-32) mmol/L Anion Gap 10.0 (3-11) BUN 39 H (7-18) mg/dl Creatinine 3.24 H (0.6-1.2) mg/dl Est Cr Clr Drug Dosing 15.7 ml/min Est GFR ( Amer) 14.8 Est GFR (Non-Af Amer) 12.7 BUN/Creatinine Ratio 12.1 (10-20) Glucose 97 (70-99) mg/dl POC Glucose 129 H 96 (70-99) mg/dl Calcium 8.6 (8.5-10.1) mg/dl 07/25/19 07/25/19 Range/Units 20:01 16:47 Sodium (136-145) mmol/L Potassium (3.5-5.1) mmol/L Chloride (98-107) mmol/L Carbon Dioxide (21-32) mmol/L Anion Gap (3-11) BUN (7-18) mg/dl Creatinine (0.6-1.2) mg/dl Est Cr Clr Drug Dosing ml/min Est GFR ( Amer) Est GFR (Non-Af Amer) BUN/Creatinine Ratio (10-20) Glucose (70-99) mg/dl POC Glucose 141 H 130 H (70-99) mg/dl Calcium (8.5-10.1) mg/dl
--- NOTE | 2019-07-26 18:43 | Billing Data ---
Date of Service July 26, 2019 Coding Level of Care Code D/C Day Management <30 mins
== END 2019-07-26 16:58 | disposition home or self-care (01) | DRG 394 ==
LOC: ED 04:08 → SUATTDRO 09:26 → 2W 09:26

== ENCOUNTER 2019-08-25 13:15 | Inpatient (IN) ==
[2019-08-25] MEDS ORDERED: ALBUT/IPRATROP 3MG/0.5MG NEB 3 ML VIAL INH STA (14:18)
--- NOTE | 2019-08-25 14:28 | Emergency Department Note ---
History of Present Illness General Chief Complaint: Shortness of Breath/Dyspnea Stated Complaint: SOB Time Seen by Provider: 08/25/19 14:04 Source: patient Mode of arrival: ambulatory Limitations: no limitations History of Present Illness Provider Complaint: shortness of breath HPI Narrative: This is an 79-year-old female who presents to the ED with a chief complaint of increasing shortness of breath over the past month. She also reports bilateral lower extremity edema that does not seem to improve with Bumex. She also reports a chronic cough. The patient has no other complaints. Denies any fevers. Cough is not productive. She has noticed a little wheezing. She does have a history of asthma as well as congestive heart failure. Home Medications Home Medications Medication Instructions Recorded Confirmed Type Lantus Solostar U-100 Insulin 8 unit SUBCUT HS 11/22/17 08/25/19 History anastrozole 1 mg PO QPM 11/22/17 08/25/19 History aspirin [Aspirin Low Dose] 81 mg PO QPM 11/22/17 08/25/19 History calcium carbonate-vitamin D3 1 tab PO QPM 11/22/17 08/25/19 History [Os-Conrad 500 + D3] cholecalciferol (vitamin D3) 5,000 unit PO QAM 11/22/17 08/25/19 History metoprolol tartrate 12.5 mg PO BID 11/22/17 08/25/19 History multivitamin with minerals 1 tab PO QAM 11/22/17 08/25/19 History pantoprazole 40 mg PO QAM 11/22/17 08/25/19 History prednisone 5 mg PO QAM 11/22/17 08/25/19 History brimonidine 1 drp OPB BID 06/22/18 08/25/19 History dorzolamide 1 drp OPR BID 06/22/18 08/25/19 History ferrous sulfate 325 mg PO BID #0 tab 06/25/18 08/25/19 Rx budesonide-formoterol HFA 80 2 puff INHALATION BID #3 inhaler 02/01/19 08/25/19 Rx mcg-4.5 mcg/actuation aerosol inhaler zafirlukast 20 mg tablet 20 mg PO Q12H #180 tab 02/01/19 08/25/19 Rx albuterol sulfate 90 mcg/actuation 2 - 4 puff INHALATION QID PRN #3 02/15/19 08/25/19 Rx aerosol inhaler inhaler bupropion HCl 300 mg 24 hr tablet, 300 mg PO QAM tab 03/06/19 08/25/19 History extended release bumetanide 0.5 mg tablet 0.5 mg PO .COMPLEX PRN tab 08/03/19 08/25/19 History acetaminophen [Tylenol Extra 500 mg PO Q6H PRN 08/25/19 08/25/19 History Strength] sodium bicarbonate 650 mg PO QDD 08/25/19 08/25/19 History Allergies Allergy/AdvReac Type Severity Reaction Status Date / Time Bactrim Allergy Severe dizzy,dyseq Verified 10/26/17 14:59 uilibrium bee venom protein (honey bee) Allergy Severe ANAPHYLAXIS Verified 08/25/19 15:04 cefaclor Allergy Severe stiff and Verified 08/25/19 15:04 sore muscles-PT DENIES lisinopril Allergy Severe tongue Verified 08/25/19 15:04 swelling diltiazem Allergy Intermediate rash Verified 08/25/19 15:04 Penicillins Allergy Mild RASH Verified 08/25/19 15:04 tetracycline Allergy Mild UNK-PT Verified 08/25/19 15:04 DENIES amoxicillin Allergy Unknown RASH Verified 08/25/19 15:04 baclofen Allergy Unknown Unknown Verified 08/25/19 15:04 cefuroxime Allergy Unknown TAST Verified 08/25/19 15:04 clavulanic acid Allergy Unknown ITCHING Verified 08/25/19 15:04 levofloxacin Allergy Unknown NAUSEA, Verified 08/25/19 15:04 DIZZINESS alendronate sodium AdvReac Intermediate FELT SICK Verified 08/25/19 15:04 Cipro AdvReac Intermediate LEGS ARMS Verified 10/26/17 14:59 STIFF, PAINFUL ciprofloxacin AdvReac Intermediate LEGS ARMS Verified 08/25/19 15:04 STIFF, PAINFUL doxycycline AdvReac Intermediate nausea and Verified 08/25/19 15:04 vomiting metformin AdvReac Intermediate CAUSED Verified 08/25/19 15:04 BACK PAIN AND INC. LACTIC ACID LEVELS tramadol AdvReac Intermediate DIZZINESS Verified 08/25/19 15:04 adhesive AdvReac Mild redness Verified 08/25/19 15:04 mercaptopurine AdvReac Mild MADE HER Verified 08/25/19 15:04 VERY ILL olmesartan AdvReac Mild HEADACHE Verified 08/25/19 15:04 Sulfa (Sulfonamide AdvReac Mild CAUSED Verified 08/25/19 15:04 Antibiotics) DIZZINESS sulfamethoxazole AdvReac Mild CAUSED Verified 08/25/19 15:04 DIZZINESS trimethoprim AdvReac Mild BACTRIM Verified 08/25/19 15:04 CAUSED DIZZINESS aspirin AdvReac Unknown CAUSES Verified 08/25/19 15:04 BRUISING Past Med/Surg History Medical History Acute osteomyelitis (Resolved 06/05/01) "MRSA of the thoracic spine " On 02/05/12 10:49 Wilfredo Melendez wrote "MRSA of the thoracic spine " Anemia Asthma Breast cancer, left breast X2--1ST)2005 2)2012---SX,RADIATION Chronic back pain Chronic kidney disease, stage V CKD (chronic kidney disease) (Inactive) Deep vein thrombosis L LEG Fibromyalgia GERD (gastroesophageal reflux disease) Glaucoma BILT EYES Hyperlipidemia Hypertension Hyponatremia Pneumonia, organism unspecified (Resolved 02/05/12) Protein S deficiency Rheumatoid arthritis Spinal stenosis Stroke 07/2017--DIFFICULTY WALKING Trigeminal neuralgia Ulcerative colitis Vitamin D deficiency Surgical History H/O bilateral cataract extraction H/O right inguinal hernia repair History of appendectomy History of bowel resection 1993 WITH ILEOSTOMY @ [facility] [place] History of breast biopsy LEFT MALIGNANT X2 History of colonoscopy History of esophagogastroduodenoscopy (EGD) History of gastric surgery 2012---ABC[facility] ON STOMACH WALL History of lumpectomy of left breast X2 2005 WITH LYMPH NODE REMOVAL, 2012 History of tooth extraction ALL TEETH Family History Brother Family history of diabetes mellitus 2 BROTHERS Mother Family hx of colon cancer Father Family hx of colon cancer Social History Preferred Language: Greenlandic Communication Ability: Effective Travel Assistant Required: No Beliefs That Will Affect Care: Zoroastrianism Zoroastrianism Beliefs: Hindu Current Living Situation: Spouse Current Living Situation Comment: Patient lives w/ . Feels Safe at Home: Yes Smoking Status: Former smoker Tobacco Type: cigarettes ; Second Hand Exposure: Yes ; Hx Alcohol Use: No Hx Substance Use: No Review of Systems A total of 10 systems reviewed and were otherwise negative Physical Exam Vital Signs: Vital Signs - 24 hr 08/25/19 13:29 08/25/19 14:18 08/25/19 14:58 Temperature 36.8 C Temperature Source Oral Pulse Rate 72 Pulse Rate [Apical ] 75 Respiratory Rate 20 22 Respiratory Effort / Characteristics Non-Labored Sponta neous Blood Pressure 196/84 H Blood Pressure Stephenie n 121 Pulse Oximetry 98 96 97 Oxygen Delivery Me thod Room Air Room Air Room Air Sepsis Recent Feve r Within 48 Hours No Sepsis New/Unexpla ined Change in Men dawna Status No Sepsis Action Take n by Nursing No Action Required Physical Exam: CONSTITUTIONAL/VITAL SIGNS: Reviewed / noted above. GENERAL: Non-toxic in appearance. INTEGUMENTARY: Warm, dry, and [place]. HEAD: Normocephalic. EYES: without scleral icterus or trauma. ENT/OROPHARYNX: clear and moist. LYMPHADENOPATHY/NECK: Is supple without lymphadenopathy or meningismus. RESPIRATORY: Lungs reveal a scattered wheeze. No rhonchi or rales. CARDIOVASCULAR: Regular rate and rhythm. GI/ABDOMEN: Soft and nontender. No organomegaly or pulsatile mass. No rebound or guarding. Normal bowel sounds. EXTREMITIES: Warm and well perfused. There is lower extremity edema bilateral. He seems to be symmetric. She does have some left calf tenderness. BACK: No CVA tenderness. NEUROLOGICAL: Intact without focal deficits. PSYCHIATRIC: normal affect. MUSCULOSKELETAL: Normally developed with good muscle tone. TRIAGE NURSING DOCUMENTATION REVIEWED. Course Administered Medications Discontinued Medications Albuterol (Duoneb) 3 ml INH NOW STA Stop: 08/25/19 14:19 Last Admin: 08/25/19 14:57 Dose: 3 ml Documented by: [id number] Medical Decision Making Differential Diagnosis The differential was considered includes acute myocardial infarction, acute coronary syndrome, myocarditis, pericarditis, pericardial effusions /tamponad, esophageal perforation, pulmonary embolism, pneumonia, pneumothorax, cardiomyopathy, congestive heart, anemia , COPD/asthma exacerbation. Medical Records Attestation: I reviewed the patient's medical records. Home Medications Current Medication List: was personally reviewed by me Laboratory Data Attestation: I reviewed the patient's lab results. Result diagrams: 08/25/19 14:45 08/25/19 14:45 Lab Results 0608/25/19 08/25/19 Range/Units 14:45 14:45 14:45 WBC 7.76 (4.8-10.8) K/uL RBC 3.24 L (4.2-5.4) M/uL Hgb 10.1 L (12.0-16.0) g/dL Hct 32.1 L (37-47) % MCV 99.1 (80-100) fL MCH 31.2 (25-34) pg MCHC 31.5 L (32-36) g/dL RDW Std Deviation 46.4 H (36.4-46.3) fL RDW Coeff of Michelle 12.7 (11.5-14.5) % Plt Count 201 (130-400) K/uL MPV 9.8 (7.4-10.4) fL Immature Gran % (Auto) 0.3 % Neut % (Auto) 81.8 % Lymph % (Auto) 12.5 % [place] % (Auto) 4.0 % Eos % (Auto) 1.0 % Baso % (Auto) 0.4 % Neut # (Auto) 6.35 (1.4-6.5) K/uL Lymph # (Auto) 0.97 L (1.2-3.4) K/uL [place] # (Auto) 0.31 (0.11-0.59) K/uL Eos # (Auto) 0.08 (0-0.5) K/uL Baso # (Auto) 0.03 (0-0.2) K/uL Immature Gran # (Auto) 0.02 (0.00-0.02) K/uL PT 10.3 (9.0-12.0) Seconds INR 1.0 (0.9-1.1) APTT 22.8 (21.0-31.0) Seconds PTT Ratio 0.8 Sodium 136 (136-145) mmol/L Potassium 4.2 (3.5-5.1) mmol/L Chloride 105 (98-107) mmol/L Carbon Dioxide 24 (21-32) mmol/L Anion Gap 7.0 (3-11) BUN 36 H (7-18) mg/dl Creatinine 3.14 H (0.6-1.2) mg/dl Est Cr Clr Drug Dosing Not Reportable Est GFR ( Amer) 15.3 Est GFR (Non-Af Amer) 13.2 BUN/Creatinine Ratio 11.3 (10-20) Glucose 121 H (70-99) mg/dl Calcium 9.0 (8.5-10.1) mg/dl Total Bilirubin 0.3 (0.2-1) mg/dl AST 12 L (15-37) U/L ALT 16 (12-78) U/L Alkaline Phosphatase 52 (45-117) U/L Troponin I 0.021 (0-0.045) ng/ml NT-Pro-B Natriuret Pep 10847 H (0-1800) pg/ml Total Protein 6.1 L (6.4-8.2) gm/dl Albumin 3.1 L (3.4-5.0) gm/dl Globulin 2.9 (2.5-4.0) gm/dl Albumin/Globulin Ratio 1.1 (0.9-2) Imaging Data Radiologist's Impression: Chest x-ray:XR chest 1V portable CLINICAL HISTORY: Dyspnea COMPARISON STUDY: 06/24/2017 FINDINGS: Mild cardiomegaly. Central catheter in superior vena cava. Prominent pulmonary vasculature. Superimposed interstitial infiltrate left base. IMPRESSION: 1. Findings of developing congestive failure. 2. Superimposed interstitial infiltrate left base. ]\\ Bilateral lower extremity ultrasound:BILATERAL LOWER EXTREMITY VENOUS DOPPLER HISTORY: Leg swelling. r/o dvt, swelling COMPARISON STUDY: 10/26/2017. FINDINGS: Nonocclusive thrombus seen within the right common femoral vein. This is likely chronic. Otherwise, the remaining bilateral lower extremity venous systems are patent. IMPRESSION: 1. Nonocclusive thrombus within the right common femoral vein. This is likely chronic. 2. No DVT within the left lower extremity. ECG Data Attestation: I personally reviewed and interpreted this ECG as follows: (Twelve- lead EKG: Per my interpretation reveals a normal sinus rhythm at a rate of 74 without acute injury or ectopy. No PVCs. No ST elevation.) Prescription Drug Monitoring [place] Drug Monitoring Program reviewed and no issues identified Blood Pressure Blood Pressure Findings: Elevated blood pressure Blood Pressure Disposition: Referred to patients primary care provider MDM Narrative This is an 79-year-old female who presents to the ED with a chief complaint of increasing shortness of breath over the past month. She also reports bilateral lower extremity edema that does not seem to improve with Bumex. She also reports a chronic cough. The patient has no other complaints. Denies any fevers. Cough is not productive. She has noticed a little wheezing. She does have a history of asthma as well as congestive heart failure. Her initial blood pressure was elevated. Her exam reveals some scattered wheezes but no rhonchi or rales. She does have pedal edema with some left calf tenderness. The patient's EKG shows a normal sinus rhythm. Chest x-ray reveals some mild pulmonary vascular prominence. The CBC and chemistry panel was unremarkable. Troponin is negative. BNP was elevated. This is likely due to chronic congestive heart failure. Her BUN is 36 and creatinine is 3.14. This is about baseline for the patient. Bilateral lower extremity ultrasounds did not show DVT. The patient was treated with a DuoNeb treatment here. She was told the results of the test. Her vital signs are stable. She is felt to be stable for discharge. The patient does report that she takes Bumex. She states that it does not seem to help her leg edema much. This is likely related to the fact that she has chronic renal insufficiency. I do not feel that her breathing issues are related to significant congestive heart failure or pulmonary edema. Impression & Plan Asthma exacerbation, CHF (congestive heart failure) Discharge Plan Visit Data Chief Complaint: Shortness of Breath/Dyspnea Stated Complaint: SOB ED Provider: Shankar Torrez Discharge Problem: Asthma exacerbation, CHF (congestive heart failure) Patient Disposition: Home - Self-Care Condition: Good Discharge Instructions Activity Restrictions/Additional Instructions: Your test results today did not show any concerning abnormalities. Continue your current medications. The ultrasound did not show blood clots. Your chest x-ray does not show any findings concerning significant congestive heart failure or pulmonary edema. Your blood work reveals some chronic kidney dysfunction. C ardiac testing was otherwise normal. Follow-up with your doctor for further care and evaluation in 1-2 days if symptoms persist. Return to the emergency department for worsening or new symptoms or any concerns. You have been examined and treated today on an emergency basis only. This is not a substitute for, or an effort to provide, complete comprehensive medical care. It is impossible to recognize and treat all injuries or illnesses in a single emergency department visit. It is therefore important that you follow up closely with your doctor. Call as soon as possible for an appointment. Forms Stand Alone Forms: [facility], Virtual Emergency Department, Important Visit Information Prescriptions Prescriptions: No Action albuterol sulfate [Ventolin HFA] 90 mcg/actuation HFA aerosol inhaler 2 - 4 puff INHALATION QID PRN (Reason: Shortness Of Breath Or Wheezing) Qty: 3 RF: 3 bumetanide 0.5 mg tablet 0.5 mg PO .COMPLEX PRN (Reason: Edema) RF: 0 Symbicort 80-4.5 mcg/actuation HFA aerosol inhaler 2 puff INHALATION BID Qty: 3 RF: 3 zafirlukast [Accolate] 20 mg tablet 20 mg PO Q12H Qty: 180 RF: 3 bupropion HCl 300 mg tablet extended release 24 hr 300 mg PO QAM RF: 0 brimonidine 0.2 % drops 1 drp OPB BID RF: 0 dorzolamide 2 % drops 1 drp OPR BID RF: 0 ferrous sulfate 325 mg (65 mg iron) Tablet 325 mg PO BID Qty: 0 RF: 0 anastrozole 1 mg Tablet 1 mg PO QPM RF: 0 aspirin [Aspirin Low Dose] 81 mg Tablet,Delayed Release (Dr/Ec) 81 mg PO QPM RF: 0 multivitamin with minerals Tablet 1 tab PO QAM RF: 0 cholecalciferol (vitamin D3) 5,000 unit Capsule 5,000 unit PO QAM RF: 0 metoprolol tartrate 25 mg Tablet 12.5 mg PO BID RF: 0 calcium carbonate-vitamin D3 [Os-Conrad 500 + D3] 500 mg(1,250mg) -200 unit Tablet 1 tab PO QPM RF: 0 Lantus Solostar U-100 Insulin 100 unit/mL (3 mL) Insulin Pen 8 unit SUBCUT HS RF: 0 prednisone 5 mg Tablet 5 mg PO QAM RF: 0 pantoprazole 40 mg Tablet,Delayed Release (Dr/Ec) 40 mg PO QAM RF: 0 acetaminophen [Tylenol Extra Strength] 500 mg Tablet 500 mg PO Q6H PRN (Reason: Pain) RF: 0 sodium bicarbonate 650 mg tablet 650 mg PO QDD RF: 0 Referrals Referrals: Se Tovar MD [Primary Care Provider] - Discharge Problem: Asthma exacerbation Qualifiers: Asthma severity: mild Asthma persistence: unspecified Qualified Code(s): J45.901 - Unspecified asthma with (acute) exacerbation
[2019-08-25 14:57] LABS: Basophils # (auto) 0.03 K/uL (0-0.2); Basophils % (auto) 0.4 %; Eosinophils # (auto) 0.08 K/uL (0-0.5); Hematocrit (blood only) 32.1 % (37-47); Hemoglobin 10.1 g/dL (12.0-16.0); Immature Granulocytes # (auto) 0.02 K/uL (0.00-0.02); Immature Granulocytes % (auto) 0.3 %; Lymphocytes # (auto) 0.97 K/uL (1.2-3.4); Lymphocytes % (auto) 12.5 %; Mean Corpuscular Hemoglobin 31.2 pg (25-34); Mean Corpuscular Hgb Conc 31.5 g/dL (32-36); Mean Corpuscular Volume 99.1 fL (80-100); Mean Platelet Volume 9.8 fL (7.4-10.4); Monocytes # (auto) 0.31 K/uL (0.11-0.59); Neutrophils # (auto) 6.35 K/uL (1.4-6.5); Neutrophils % (auto) 81.8 %; Platelet Count 201 K/uL (130-400); RDW Coefficient of Variation 12.7 % (11.5-14.5); RDW Standard Deviation 46.4 fL (36.4-46.3); Red Blood Count 3.24 M/uL (4.2-5.4); White Blood Count 7.76 K/uL (4.8-10.8)
[2019-08-25 15:07] LABS: Partial Thromboplastin Ratio 0.8; Partial Thromboplastin Time 22.8 Seconds (21.0-31.0); Prothrombin Time 10.3 Seconds (9.0-12.0)
[2019-08-25 15:14] LABS: Alanine Aminotransferase 16 U/L (12-78); Albumin Level 3.1 gm/dl (3.4-5.0); Aspartate Aminotransferase 12 U/L (15-37); BUN Creatinine Ratio 11.3 (10-20); Blood Urea Nitrogen 36 mg/dl (7-18); Carbon Dioxide 24 mmol/L (21-32); Chloride 105 mmol/L (98-107); Est GFR (African American) 15.3; Est GFR (Non-African American) 13.2; Glucose 121 mg/dl (70-99); Potassium 4.2 mmol/L (3.5-5.1); Sodium 136 mmol/L (136-145)
[2019-08-25 15:19] LABS: Albumin Globulin Ratio 1.1 (0.9-2); Alkaline Phosphatase 52 U/L (45-117); Bilirubin,Total 0.3 mg/dl (0.2-1); Globulin 2.9 gm/dl (2.5-4.0); NT Pro B Type Natriuretic Pept 22409 pg/ml (0-1800); Total Protein 6.1 gm/dl (6.4-8.2); Troponin I 0.021 ng/ml (0-0.045)
--- NOTE | 2019-08-25 15:24 | XRay Report ---
XR chest 1V portable CLINICAL HISTORY: Dyspnea COMPARISON STUDY: 06/24/2017 FINDINGS: Mild cardiomegaly. Central catheter in superior vena cava. Prominent pulmonary vasculature. Superimposed interstitial infiltrate left base. IMPRESSION: 1. Findings of developing congestive failure. 2. Superimposed interstitial infiltrate left base. ACT 112: Negative or not required by law. The above report was generated using voice recognition software. It may contain grammatical, syntax or spelling errors. Electronically signed by: Maxwell Irizarry M.D. 08/25/2019 3:22 PM
--- NOTE | 2019-08-25 15:59 | Electrocardiogram Report ---
Test Reason : Blood Pressure : / mmHG Vent. Rate : 074 BPM Atrial Rate : 074 BPM P-R Int : 180 ms QRS Dur : 094 ms QT Int : 408 ms P-R-T Axes : 038 004 135 degrees QTc Int : 452 ms Poor data quality, interpretation may be adversely affected Normal sinus rhythm Nonspecific ST and T wave abnormality Abnormal ECG When compared with ECG of 23-JUL-2019 05:52, No significant change was found Confirmed by Francisco Paiz [id number]) on 08/25/2019 3:58:56 PM Referred By: REFERRED SELF Confirmed By:Francisco Paiz
--- NOTE | 2019-08-25 17:17 | Ultrasound Report ---
BILATERAL LOWER EXTREMITY VENOUS DOPPLER HISTORY: Leg swelling. r/o dvt, swelling COMPARISON STUDY: 10/26/2017. FINDINGS: Nonocclusive thrombus seen within the right common femoral vein. This is likely chronic. Ot herwise, the remaining bilateral lower extremity venous systems are patent. IMPRESSION: 1. Nonocclusive thrombus within the right common femoral vein. This is likely chronic. 2. No DVT within the left lower extremity. ACT 112: Negative or not required by law. Electronically signed by: Abel Broussard M.D. 08/25/2019 5:15 PM
--- NOTE | 2019-08-25 19:08 | History & Physical Report ---
Date of Service August 25, 2019 Assessment & Plan (1) SOB (shortness of breath): Multifactorial, hypoxic in the upper 80s in the ED PNA + COPD exacerbatinon + CHF exacerbation Nebs, mucomyst, solumedrol 40mg BID Additional bumex 1mg x1 tonight and monitor Azithromycin PO given multiple abx adverse reaction BNP elevated CXR noted LE US neg for DVT, noted nonocclusive R common femoral vein (2) SBO (small bowel obstruction): Recent admission for this, d/c 07/25 No recurrent sx Conservative tx at that time Ostomy output is at baseline (3) Chronic kidney disease, stage V: Baseline cr 2.8-3.2, 3.1 on admission Pt states she would not want HD if that became an issue (4) Hypertension: continue home meds BP elevated in ED with automated cuff, need to use manual (5) Diabetes mellitus, type 2: Lantus 8units HS SSI PRN A1c pending (6) Protein S deficiency: Noted (7) Anemia: Hb on admission 10.1 Was 9.3 on last admission No s/sx of bleeding Monitor (8) Rheumatoid arthritis: Daily prednisone use (9) History of CVA (cerebrovascular accident): Aspirin 81mg (10) History of DVT (deep vein thrombosis): No current anticoagulation (11) DVT prophylaxis: Heparin for DVT proph History of Present Illness Primary Care Provider: Se Tovar MD 79 y/o F c/o worsening SOB/BUNCH. Pt states that this has been ongoing since her d/c from [facility] on 07/25 after being tx conservatively for SBO. She states it was initially just with exertion, but is now when she is at rest also. She states that she takes bumex daily, but is having ongoing LE swelling. She states she is not making as much urine as she would expect to with the bumex. She has occasional chest pressure with SOB, but no chantell pain. Pt denies fever, abd pain, n/v/c/d, LE pain. Pt was given nebs in the ED and feels better at rest, but an attempt to ambulate to the bathroom resulted in severe BUNCH and O2 desats in the 80s. Pt states automated BP cuffs lead to elevated pressures. BP with manual cuffs are WNL for her. Allergies Allergy/AdvReac Type Severity Reaction Status Date / Time Bactrim Allergy Severe dizzy,dyseq Verified 10/26/17 14:59 uilibrium bee venom protein (honey bee) Allergy Severe ANAPHYLAXIS Verified 08/25/19 15:04 cefaclor Allergy Severe stiff and Verified 08/25/19 15:04 sore muscles-PT DENIES lisinopril Allergy Severe tongue Verified 08/25/19 15:04 swelling diltiazem Allergy Intermediate rash Verified 08/25/19 15:04 Penicillins Allergy Mild RASH Verified 08/25/19 15:04 tetracycline Allergy Mild UNK-PT Verified 08/25/19 15:04 DENIES amoxicillin Allergy Unknown RASH Verified 08/25/19 15:04 baclofen Allergy Unknown Unknown Verified 08/25/19 15:04 cefuroxime Allergy Unknown TAST Verified 08/25/19 15:04 clavulanic acid Allergy Unknown ITCHING Verified 08/25/19 15:04 levofloxacin Allergy Unknown NAUSEA, Verified 08/25/19 15:04 DIZZINESS alendronate sodium AdvReac Intermediate FELT SICK Verified 08/25/19 15:04 Cipro AdvReac Intermediate LEGS ARMS Verified 10/26/17 14:59 STIFF, PAINFUL ciprofloxacin AdvReac Intermediate LEGS ARMS Verified 08/25/19 15:04 STIFF, PAINFUL doxycycline AdvReac Intermediate nausea and Verified 08/25/19 15:04 vomiting metformin AdvReac Intermediate CAUSED Verified 08/25/19 15:04 BACK PAIN [employer]. LACTIC ACID LEVELS tramadol AdvReac Intermediate DIZZINESS Verified 08/25/19 15:04 adhesive AdvReac Mild redness Verified 08/25/19 15:04 mercaptopurine AdvReac Mild MADE HER Verified 08/25/19 15:04 VERY ILL olmesartan AdvReac Mild HEADACHE Verified 08/25/19 15:04 Sulfa (Sulfonamide AdvReac Mild CAUSED Verified 08/25/19 15:04 Antibiotics) DIZZINESS sulfamethoxazole AdvReac Mild CAUSED Verified 08/25/19 15:04 DIZZINESS trimethoprim AdvReac Mild BACTRIM Verified 08/25/19 15:04 CAUSED DIZZINESS aspirin AdvReac Unknown CAUSES Verified 08/25/19 15:04 BRUISING Home Medications Home Medications Medication Instructions Recorded Confirmed Type Lantus Solostar U-100 Insulin 8 unit SUBCUT HS 11/22/17 08/25/19 History anastrozole 1 mg PO QPM 11/22/17 08/25/19 History aspirin [Aspirin Low Dose] 81 mg PO QPM 11/22/17 08/25/19 History calcium carbonate-vitamin D3 1 tab PO QPM 11/22/17 08/25/19 History [Os-Conrad 500 + D3] cholecalciferol (vitamin D3) 5,000 unit PO QAM 11/22/17 08/25/19 History metoprolol tartrate 12.5 mg PO BID 11/22/17 08/25/19 History multivitamin with minerals 1 tab PO QAM 11/22/17 08/25/19 History pantoprazole 40 mg PO QAM 11/22/17 08/25/19 History prednisone 5 mg PO QAM 11/22/17 08/25/19 History brimonidine 1 drp OPB BID 06/22/18 08/25/19 History dorzolamide 1 drp OPR BID 06/22/18 08/25/19 History ferrous sulfate 325 mg PO BID #0 tab 06/25/18 08/25/19 Rx budesonide-formoterol HFA 80 2 puff INHALATION BID #3 inhaler 02/01/19 08/25/19 Rx mcg-4.5 mcg/actuation aerosol inhaler zafirlukast 20 mg tablet 20 mg PO Q12H #180 tab 02/01/19 08/25/19 Rx albuterol sulfate 90 mcg/actuation 2 - 4 puff INHALATION QID PRN #3 02/15/19 08/25/19 Rx aerosol inhaler inhaler bupropion HCl 300 mg 24 hr tablet, 300 mg PO QAM tab 03/06/19 08/25/19 History extended release bumetanide 0.5 mg tablet 0.5 mg PO .COMPLEX PRN tab 08/03/19 08/25/19 History acetaminophen [Tylenol Extra 500 mg PO Q6H PRN 08/25/19 08/25/19 History Strength] sodium bicarbonate 650 mg PO QDD 08/25/19 08/25/19 History Past Med/Surg History Medical History Acute osteomyelitis (Resolved 06/05/01) "MRSA of the thoracic spine " On 02/05/12 10:49 Wilfredo Melendez wrote "MRSA of the thoracic spine " Anemia Asthma Breast cancer, left breast X2--1ST)2005 2)2012---SX,RADIATION Chronic back pain Chronic kidney disease, stage V CKD (chronic kidney disease) (Inactive) Deep vein thrombosis L LEG Fibromyalgia GERD (gastroesophageal reflux disease) Glaucoma BILT EYES Hyperlipidemia Hypertension Hyponatremia Pneumonia, organism unspecified (Resolved 02/05/12) Protein S deficiency Rheumatoid arthritis Spinal stenosis Stroke 07/2017--DIFFICULTY WALKING Trigeminal neuralgia Ulcerative colitis Vitamin D deficiency Surgical History H/O bilateral cataract extraction H/O right inguinal hernia repair History of appendectomy History of [place] [facility] [place] of breast biopsy LEFT MALIGNANT X2 History of colonoscopy History of esophagogastroduodenoscopy (EGD) History of gastric surgery 2012---ABCESS ON STOMACH WALL History of lumpectomy of left breast X2 2005 WITH LYMPH NODE REMOVAL, 2012 History of tooth extraction ALL TEETH Family History Brother Family history of diabetes mellitus 2 BROTHERS Mother Family hx of colon cancer Father Family hx of colon cancer Social History Preferred Language: Greek Communication Ability: Effective 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 Feels Safe at Home: Yes Smoking Status: Former smoker Tobacco Type: cigarettes ; Second Hand Exposure: Yes ; Hx Alcohol Use: No Hx Substance Use: No Review of Systems Review of Systems: Pertinent positives and negatives reviewed in HPI--all others negative Physical Exam Constitutional: WD/WN, vitals as above Eyes: normal visual hui by confrontation and + anicteric sclerae Neck: normal visual inspection and trachea midline Respiratory: normal respiratory effort; no respiratory distress Auscultation: + crackles and + wheezes Cardiovascular: Rate/Rhythm: regular rate and regular rhythm Gastrointestinal (Abdomen): Inspection/Auscultation: abdomen not distended Percussion/Palpation: abdomen soft; abdomen nontender Musculoskeletal: Head/Neck/Chest: normocephalic and head atraumatic LE 1+ pitting edema, peripheral pulses intact Skin: no rashes, warm and dry Neurologic: awake; not confused Speech / Cognition: normal speech Psychiatric: A+Ox3, euthymic affect Results & Data Results & [facility] ([facility]) Vital Signs (Past 12 Hours) Vital Signs Temp Pulse Pulse Pulse Resp Resp BP 08/25/19 17:49 97 H 24 08/25/19 17:36 08/25/19 16:30 73 21 08/25/19 16:00 75 31 H 08/25/19 15:30 76 18 08/25/19 15:00 75 21 08/25/19 14:58 75 22 08/25/19 14:46 75 19 08/25/19 14:18 08/25/19 13:29 36.8 C 72 20 196/84 H Pulse Ox Pulse Ox 08/25/19 17:49 89 L 08/25/19 17:36 94 08/25/19 16:30 98 08/25/19 16:00 100 08/25/19 15:30 96 08/25/19 15:00 96 08/25/19 14:58 97 08/25/19 14:46 96 08/25/19 14:18 96 08/25/19 13:29 98 Diagnostic Findings CXR: developing CHF and L base PNA ECG Rhythm: normal sinus Code Status & VTE Plan Code Status Full code, although pt states no prolonged mechanical life support, feeding tubes, etc VTE Prophylaxis Plan VTE Prophylaxis will be ordered: Yes PG Care Time/CCT Total # of Minutes Spent Total Time Spent with Patient: Total time spent is greater than 50% in coordination of care (as documented) at patient's floor/unit and/or counseling patient: Coding Level of Care Code 19159 Initial Inpt Care Lvl 3 Diagnoses SOB (shortness of breath) R06.02 SBO (small bowel obstruction) K56.609 Chronic kidney disease, stage V N18.5 Hypertension I10 Diabetes mellitus, type 2 E11.9 Protein S deficiency D68.59 Anemia D64.9 Rheumatoid arthritis M06.9 History of CVA (cerebrovascular accident) Z86.73 History of DVT (deep vein thrombosis) Z86.718 DVT prophylaxis Z29.9
[2019-08-25] MEDS ORDERED: ONDANSETRON INJ 2 MG/ML 2 ML VIAL IV PRN (19:36)
[2019-08-25] MEDS ORDERED: DEXTROSE 50% 50 ML SYRINGE IV PRN (19:36)
[2019-08-25] MEDS ORDERED: CARBOHYDRATES FOR HYPOGLYCEMIA PO PRN (19:36)
[2019-08-25] MEDS ORDERED: GLUCAGON FOR INJ 1 MG VIAL SQ PRN (19:36)
[2019-08-25] MEDS ORDERED: MAGNESIUM HYDROXIDE SUSP 30 ML UDC PO PRN (19:36)
[2019-08-25] MEDS ORDERED: GLUCOSE 40% GEL 15 GM TUBE PO PRN (19:36)
[2019-08-25] MEDS ORDERED: BUMETANIDE 1 MG TAB PO PRN (19:36)
[2019-08-25] MEDS ORDERED: GLUCOSE 10 TABS/TUBE PO PRN (19:36)
[2019-08-25] MEDS ORDERED: ALBUTEROL HFA 8 GM INHALER INH PRN (19:36)
[2019-08-25] MEDS: ALBUT/IPRATROP 3MG/0.5MG NEB 3 ML VIAL NEB SCH ×2 (19:54→23:23)
[2019-08-25] MEDS: ACETYLCYSTEINE 20% INHAL SOLN 4ML ***DISPENSED BY RESP. INH SCH (19:55)
[2019-08-25] MEDS ORDERED: BUMETANIDE 1 MG TAB PO ONE (20:15)
[2019-08-25] MEDS ORDERED: AZITHROMYCIN 250 MG TAB PO ONE (20:15)
[2019-08-25] MEDS: DORZOLAMIDE HCL 2% OPH SOLN 10 ML BTL OPR SCH (20:49)
[2019-08-25] MEDS: BRIMONIDINE TARTRATE 0.2% 5ML OP SCH (20:50)
[2019-08-25] MEDS: methylPREDNISolone 40 MG in SYRINGE 0 ML IV SCH (20:51)
[2019-08-25] MEDS: FERROUS SULFATE 325 MG TAB PO SCH (20:52)
[2019-08-25] MEDS: METOPROLOL TARTRATE 25 MG TAB PO SCH (20:53)
[2019-08-25] MEDS: ASPIRIN 81 MG ECTAB PO SCH (20:53)
[2019-08-25] MEDS: CALCIUM 600MG + VIT D 400 IU TAB PO SCH (20:53)
[2019-08-25] MEDS: ANASTROZOLE 1 MG TAB PO SCH (20:56)
[2019-08-25] MEDS: INSULIN GLARGINE SOLOSTAR 100 UNITS/ML 3 ML PEN SQ SCH (20:56)
[2019-08-25] MEDS: INSULIN ASPART 100 UNITS/ML 3 ML PEN SC SCH (20:56)
[2019-08-25] MEDS: HEPARIN SOD 5,000 UNIT/0.5 ML VIAL SQ SCH (21:00)
[2019-08-25] MEDS ORDERED: BRIMONIDINE TART 0.2% OP SOLN PER DROP CHARGE OPB SCH (21:00)
[2019-08-25] MEDS ORDERED: MICONAZOLE NITRATE POWDER 43 GM EXT PRN (21:05)
[2019-08-25] MEDS ORDERED: HEPARIN 100 UNIT/ML 5ML FLUSH ONE (21:14)
[2019-08-26] MEDS: ACETAMINOPHEN 500 MG TAB PO PRN ×2 (00:11→18:51)
[2019-08-26] MEDS: ALBUT/IPRATROP 3MG/0.5MG NEB 3 ML VIAL NEB SCH ×4 (03:24→14:44)
[2019-08-26] MEDS ORDERED: HYDROCODONE/ACETAMOPHEN 5/325MG TAB PO STA ×2 (05:41→20:16)
[2019-08-26] MEDS: HEPARIN 100 UNIT/ML 5ML FLUSH FLUSH PRN ×2 (05:45→08:59)
[2019-08-26] MEDS: HEPARIN SOD 5,000 UNIT/0.5 ML VIAL SQ SCH ×3 (05:56→20:50)
[2019-08-26 06:30] LABS: Basophils # (auto) 0.03 K/uL (0-0.2); Basophils % (auto) 0.5 %; Eosinophils # (auto) 0.01 K/uL (0-0.5); Eosinophils % (auto) 0.2 %; Hemoglobin 10.6 g/dL (12.0-16.0); Lymphocytes # (auto) 0.38 K/uL (1.2-3.4); Lymphocytes % (auto) 6.3 %; Mean Corpuscular Hemoglobin 29.9 pg (25-34); Mean Corpuscular Hgb Conc 30.3 g/dL (32-36); Mean Corpuscular Volume 98.9 fL (80-100); Mean Platelet Volume 10.4 fL (7.4-10.4); Monocytes # (auto) 0.04 K/uL (0.11-0.59); Monocytes % (auto) 0.7 %; Neutrophils # (auto) 5.53 K/uL (1.4-6.5); Neutrophils % (auto) 92.3 %; Platelet Count 226 K/uL (130-400); RDW Coefficient of Variation 12.5 % (11.5-14.5); RDW Standard Deviation 45.4 fL (36.4-46.3); Red Blood Count 3.54 M/uL (4.2-5.4); White Blood Count 5.99 K/uL (4.8-10.8)
[2019-08-26 07:12] LABS: Blood Urea Nitrogen 41 mg/dl (7-18); Carbon Dioxide 23 mmol/L (21-32); Chloride 105 mmol/L (98-107); Est GFR (African American) 14.9; Est GFR (Non-African American) 12.8; Sodium 138 mmol/L (136-145)
[2019-08-26 07:13] LABS: BUN Creatinine Ratio 12.7 (10-20); Calcium 9.2 mg/dl (8.5-10.1); Glucose 174 mg/dl (70-99)
[2019-08-26] MEDS: ACETYLCYSTEINE 20% INHAL SOLN 4ML ***DISPENSED BY RESP. INH SCH (07:19)
[2019-08-26] MEDS: FLUTICASONE/VILANTEROL 100/25MCG 14 PUFFS/INHALER INH SCH (08:42)
[2019-08-26] MEDS: methylPREDNISolone 40 MG in SYRINGE 0 ML IV SCH (08:42)
[2019-08-26] MEDS: PANTOprazole 40 MG TAB PO SCH (08:43)
[2019-08-26] MEDS: FERROUS SULFATE 325 MG TAB PO SCH ×2 (08:43→20:42)
[2019-08-26] MEDS: CEROVITE ADV FORMULA TAB PO SCH (08:43)
[2019-08-26] MEDS: METOPROLOL TARTRATE 25 MG TAB PO SCH ×2 (08:43→20:43)
[2019-08-26] MEDS: CHOLECALCIFEROL 1,000 UNITS 25 MCG TAB PO SCH (08:44)
[2019-08-26] MEDS: AZITHROMYCIN 250 MG TAB PO SCH (08:45)
[2019-08-26] MEDS: BuPROPion XL 300 MG TABCR PO SCH (08:45)
[2019-08-26] MEDS: DORZOLAMIDE HCL 2% OPH SOLN 10 ML BTL OPR SCH ×2 (08:45→20:41)
[2019-08-26] MEDS: BRIMONIDINE TARTRATE 0.2% 5ML OP SCH ×2 (08:46→20:42)
[2019-08-26] MEDS: INSULIN ASPART 100 UNITS/ML 3 ML PEN SC SCH ×4 (08:51→20:42)
[2019-08-26] MEDS ORDERED: predniSONE 5 MG TAB PO SCH (09:00)
--- NOTE | 2019-08-26 16:42 | Hospitalist Progress Note ---
Date of Service August 26, 2019 Assessment & Plan (1) SOB (shortness of breath): Multifactorial, hypoxic in the upper 80s in the ED. PNA + COPD exacerbation + CHF exacerbation. - Nebs, Mucomyst - Azithromycin PO given multiple abx adverse reaction - Will switch to prednisone 40 mg daily for steroid - Continue Bumex 1 mg IV daily (2) SBO (small bowel obstruction): Recent admission for this, d/c 07/25. Doing well; no recurrent symptoms. Ostomy output is at baseline. - Monitor (3) Chronic kidney disease, stage V: Baseline cr 2.8-3.2, 3.1 on admission. Pt states she would not want HD if that became an issue. - Avoid nephrotoxins. (4) Hypertension: BP elevated in ED with automated cuff, need to use manual. Today is 125/70. - Continue beta-atmmy (5) Diabetes mellitus, type 2: A1c was 5.9% in 06/2019. - Continue Lantus 8units HS - Sliding scale insulin (6) Protein S deficiency: Likely chronic non-occlusive thrombus within the right common femoral vein. - Not on anticoagulation at baseline. - DVT ppx (7) Anemia: Hb on admission 10.1. Was 9.3 on last admission. No s/sx of bleeding. - Monitor (8) Rheumatoid arthritis: No present flares. Daily prednisone use. - On higher prednisone for breathing (9) History of CVA (cerebrovascular accident): No acute CVA concerns. - Continue aspirin 81mg (10) History of DVT (deep vein thrombosis): No current anticoagulation apart from DVT ppx. - Heparin 5000 units SQ Q8h Admission and Anticipated Discharge Date Admission Date: August 25, 2019 Subjective Feeling much better today. Less leg swelling overall. No pain. Reports no fevers/chills, chest pain, shortness of breath, abdominal pain, nausea, or vomiting. Physical Exam Constitutional: WD/WN, vitals as above Eyes: EOM intact bilaterally; no conjunctival abnormality ENMT: external ear and nose normal, oropharynx normal Neck: trachea midline, no thyromegaly normal visual inspection Respiratory: normal respiratory effort, lungs clear to auscultation no respiratory distress Cardiovascular: RRR, no murmur, no edema Gastrointestinal (Abdomen): Inspection/Auscultation: abdomen normal to inspection; abdomen not distended Musculoskeletal: no cyanosis or clubbing, extremities motor strength 5/5 Skin: no rashes, warm and dry Neurologic: moves all extremities and awake Psychiatric: Orientation: alert, oriented to person and cooperative Results & Data Results & Data ([facility]) Vital Signs (Past 12 Hours) Vital Signs Temp Pulse Pulse Resp BP Pulse Ox 08/26/19 15:51 36.6 C 79 16 124/68 96 08/26/19 15:25 73 08/26/19 14:46 75 16 95 08/26/19 11:51 69 16 95 08/26/19 11:23 36.4 C L 74 18 122/70 95 08/26/19 08:33 120/68 08/26/19 07:29 36.4 C L 85 16 100 08/26/19 07:12 87 16 95 PG Care Time/CCT Total # of Minutes Spent Total Time Spent with Patient: Total time spent is greater than 50% in coordination of care (as documented) at patient's floor/unit and/or counseling patient: Coding Level of Care Code 48301 Subseq Hosp Care Lvl 3 Diagnoses SOB (shortness of breath) R06.02 SBO (small bowel obstruction) K56.609 Chronic kidney disease, stage V N18.5 Hypertension I10 Diabetes mellitus, type 2 E11.9 Protein S deficiency D68.59 Anemia D64.9 Rheumatoid arthritis M06.9 History of CVA (cerebrovascular accident) Z86.73 History of DVT (deep vein thrombosis) Z86.718
[2019-08-26] MEDS ORDERED: ALBUT/IPRATROP 3MG/0.5MG NEB 3 ML VIAL NEB PRN (16:48)
[2019-08-26] MEDS: SODIUM BICARBONATE 650 MG TAB PO SCH (17:13)
[2019-08-26] MEDS: BUMETANIDE 1 MG in SYRINGE 0 ML IV SCH (17:16)
[2019-08-26] MEDS: ANASTROZOLE 1 MG TAB PO SCH (20:42)
[2019-08-26] MEDS: CALCIUM 600MG + VIT D 400 IU TAB PO SCH (20:42)
[2019-08-26] MEDS: INSULIN GLARGINE SOLOSTAR 100 UNITS/ML 3 ML PEN SQ SCH (20:43)
[2019-08-26] MEDS: ASPIRIN 81 MG ECTAB PO SCH (20:43)
[2019-08-27] MEDS: ACETAMINOPHEN 500 MG TAB PO PRN ×2 (02:31→18:00)
[2019-08-27] MEDS: HEPARIN 100 UNIT/ML 5ML FLUSH FLUSH PRN (05:40)
[2019-08-27] MEDS: HEPARIN SOD 5,000 UNIT/0.5 ML VIAL SQ SCH ×3 (06:07→20:47)
[2019-08-27 06:11] LABS: Hematocrit (blood only) 31.6 % (37-47); Hemoglobin 10.2 g/dL (12.0-16.0); Mean Corpuscular Hemoglobin 31.3 pg (25-34); Mean Corpuscular Hgb Conc 32.3 g/dL (32-36); Mean Corpuscular Volume 96.9 fL (80-100); Mean Platelet Volume 10.1 fL (7.4-10.4); Platelet Count 238 K/uL (130-400); RDW Coefficient of Variation 12.8 % (11.5-14.5); Red Blood Count 3.26 M/uL (4.2-5.4); White Blood Count 13.29 K/uL (4.8-10.8)
[2019-08-27 06:51] LABS: BUN Creatinine Ratio 15.2 (10-20); Calcium 9.6 mg/dl (8.5-10.1); Creatinine Clr Calc Pharmacy 13.7 ml/min; Est GFR (African American) 12.8; Est GFR (Non-African American) 11.1; Magnesium 2.2 mg/dl (1.8-2.4); Potassium 4.2 mmol/L (3.5-5.1)
[2019-08-27 06:56] LABS: Phosphorus 4.3 mg/dl (2.5-4.9)
[2019-08-27] MEDS ORDERED: PERFLUTREN LIPID MICROSPHERE (DEFINITY) IV ONE (07:48)
[2019-08-27] MEDS: FLUTICASONE/VILANTEROL 100/25MCG 14 PUFFS/INHALER INH SCH (07:50)
[2019-08-27] MEDS: CEROVITE ADV FORMULA TAB PO SCH (07:51)
[2019-08-27] MEDS: METOPROLOL TARTRATE 25 MG TAB PO SCH ×2 (07:51→20:30)
[2019-08-27] MEDS: CHOLECALCIFEROL 1,000 UNITS 25 MCG TAB PO SCH (07:51)
[2019-08-27] MEDS: BuPROPion XL 300 MG TABCR PO SCH (07:51)
[2019-08-27] MEDS: FERROUS SULFATE 325 MG TAB PO SCH ×2 (07:51→20:32)
[2019-08-27] MEDS: PANTOprazole 40 MG TAB PO SCH (07:52)
[2019-08-27] MEDS: DORZOLAMIDE HCL 2% OPH SOLN 10 ML BTL OPR SCH ×2 (07:53→20:35)
[2019-08-27] MEDS: AZITHROMYCIN 250 MG TAB PO SCH (07:53)
[2019-08-27] MEDS: INSULIN ASPART 100 UNITS/ML 3 ML PEN SC SCH ×4 (07:57→20:35)
[2019-08-27] MEDS: BRIMONIDINE TARTRATE 0.2% 5ML OP SCH ×2 (07:58→20:34)
--- NOTE | 2019-08-27 11:15 | XRay Report ---
XR chest 2V PA/lateral HISTORY: Worsening shortness of breath COMPARISON: Chest 08/25/2019. FINDINGS: No pneumothorax. The heart is mildly enlarged. There is diffuse interstitial thickening and bibasilar densities, unchanged. Trace bilateral pleural effusions. Right jugular Port-A-Cath termina jewels at the SVC. IMPRESSION: 1. No significant change in the mild interstitial pulmonary edema and trace bilateral pleural effusio ns. 2. Bibasilar densities also persist. ACT 112: Negative or not required by law. Electronically signed by: Abel Broussard M.D. 08/27/2019 11:14 AM
[2019-08-27] MEDS: ALBUT/IPRATROP 3MG/0.5MG NEB 3 ML VIAL NEB SCH ×3 (11:22→19:24)
[2019-08-27] MEDS: predniSONE 20 MG TAB PO SCH (11:51)
[2019-08-27] MEDS: BUMETANIDE 1 MG in SYRINGE 0 ML IV SCH (11:52)
--- NOTE | 2019-08-27 12:19 | XCELERA ---
[id number]
--- NOTE | 2019-08-27 13:12 | Nephrology Consultation ---
Date of Consultation August 27, 2019 Assessment & Plan (1) NELSON (acute kidney injury): Non-oliguric. Urine output acceptable. Volume status improving. Electrolytes acceptable. Florencia reiterated a refusal of dialysis today. Thankfully, there is no current indication to start dialysis. She is well educated regarding [employer]. She is responding to medical management. Creatinine is elevated but she denies uremic symptoms. She is maintained on oral NaHCO3 with appropriate dosing. Continue diuretics to encourage a slightly negative fluid balance. Bumex switched to 1 mg PO daily today. Document I/O's. Renal diet. Repeat metabolic profile tomorrow AM. Medications are appropriately dosed for current kidney function. (2) Chronic kidney disease, stage V: Baseline creatinine 2.8-3.2 mg/dL. CKD IV A3. Non-nephrotic range proteinuria. Attributed to glomerulosclerosis associated with obesity, diabetes mellitus II, smoking history, and hypertension. Follows with Dr. Reyes as an outpatient. (3) SOB (shortness of breath): Improving with current therapy including corticosteroids, gentle diuresis, bronchodilators, and azithromycin. Continued use of diuretics to maintain a slightly negative fluid balance. Bumex switched to 1 mg PO daily today. (4) Hypertension: Appropriately controlled. No ANDRES/ARB due to allergies. (5) Diabetes mellitus, type 2: (6) Protein S deficiency: (7) Anemia: Chronic, stable. No need for JESSICA therapy at this time. (8) Rheumatoid arthritis: History of Present Illness Reason for Consultation: NELSON/CKD Requesting Physician: Kam Spear MD Attending Physician: Kam Spear MD History of Present Illness Florencia Elise is an 79-year-old female with CKD IV A3. She follows in the outpatient nephrology clinic with Dr. Reyes. Baseline creatinine has been 2.8- 3.2 mg/dL. The patient was last seen in the clinic in January 2019. At that time, she had recently completed a predialysis education course through [facility]. She decided that she would likely refuse dialysis if ever indicated. She remains firm with this decision at this time. Proteinuria has been non- nephrotic at approximately 1 gram/day. Kidney imaging has demonstrated normal appearing kidneys and urine microscopy has been acellular. There was no evidence of a monoclonal abnormality by prior evaluations. CKD can be attributed to glomerulosclerosis associated with obesity, diabetes mellitus II, a history of hypertension and a smoking history. She has not been maintained on an ANDRES/ARB due to drug allergies. Past medical history is notable for obesity, a remote smoking history, ulcerative colitis with ileostomy since , rheumatoid arthritis, chronic prednisone use, diabetes mellitus II, hypertension, history of CVA with lacunar infarct in 2018, breast cancer for which she is maintained on anastrozole, asthma, recent mild COPD on PFTS, pulmonary nodules and mediastinal adenopathy undergoing prospective monitoring, and a history of DVT associated with protein S deficiency. Florencia was admitted to [facility] from July 22- with abdominal pain associated with a functional small bowel obstruction. This was managed conservatively without the need for surgery. Unfortunately, since discharge from the hospital she has struggle with fatigue and decreased activity tolerance. Florencia reports notable BUNCH which has been progressive. She denies chest pain or palpitations. She denies lightheadedness, dizziness, syncope or presyncope. Associated symptoms included weight gain and increasing lower extremity edema. Florencia had a similar history following hospitalization in 2017. She was readmitted from rehab with volume overload attributed to diastolic CHF at that time. Current outpatient management had included increasing Bumex from o.5 mg daily to 1 mg daily. There was no improvement. Florencia developed dyspnea at rest. She presented to the ED on 08/25/2019. Evaluation demonstrated some pulmonary vascular congestion on CXR. Lower extremity duplex demonstrated chronic venous occlusion but no evidence of acute DVT formation. Oxygenation saturation dropped to <90% with exertion. Florecnia was started on Azithromycin and admitted with evidence of volume overload and a COPD exacerbation. She was diuresed approximately 500 ml since admission with 1 mg of IV Bumex. During my evaluation today, Florencia reports notable symptomatic improvement. Activity tolerance remains reduced but improving. Breathing treatments have provided significant benefit. Urine output has improved from outpatient. Appetite is good. She denies fevers or chills. TTE was obtained this morning which demonstrated normal LV size and function RV slightly enlarged with increased RVSP to 40-50 mmHg. There was no significant valvular heart disease. Allergies Allergy/AdvReac Type Severity Reaction Status Date / Time Bactrim Allergy Severe dizzy,dyseq Verified 10/26/17 14:59 uilibrium bee venom protein (honey bee) Allergy Severe ANAPHYLAXIS Verified 08/25/19 15:04 cefaclor Allergy Severe stiff and Verified 08/25/19 15:04 sore muscles-PT DENIES lisinopril Allergy Severe tongue Verified 08/25/19 15:04 swelling diltiazem Allergy Intermediate rash Verified 08/25/19 15:04 Penicillins Allergy Mild RASH Verified 08/25/19 15:04 tetracycline Allergy Mild UNK-PT Verified 08/25/19 15:04 DENIES amoxicillin Allergy Unknown RASH Verified 08/25/19 15:04 baclofen Allergy Unknown Unknown Verified 08/25/19 15:04 cefuroxime Allergy Unknown TAST Verified 08/25/19 15:04 clavulanic acid Allergy Unknown ITCHING Verified 08/25/19 15:04 levofloxacin Allergy Unknown NAUSEA, Verified 08/25/19 15:04 DIZZINESS alendronate sodium AdvReac Intermediate FELT SICK Verified 08/25/19 15:04 Cipro AdvReac Intermediate LEGS ARMS Verified 10/26/17 14:59 STIFF, PAINFUL ciprofloxacin AdvReac Intermediate LEGS ARMS Verified 08/25/19 15:04 STIFF, PAINFUL doxycycline AdvReac Intermediate nausea and Verified 08/25/19 15:04 vomiting metformin AdvReac Intermediate CAUSED Verified 08/25/19 15:04 [employer] LACTIC ACID LEVELS tramadol AdvReac Intermediate DIZZINESS Verified 08/25/19 15:04 adhesive AdvReac Mild redness Verified 08/25/19 15:04 mercaptopurine AdvReac Mild MADE HER Verified 08/25/19 15:04 VERY ILL olmesartan AdvReac Mild HEADACHE Verified 08/25/19 15:04 Sulfa (Sulfonamide AdvReac Mild CAUSED Verified 08/25/19 15:04 Antibiotics) DIZZINESS sulfamethoxazole AdvReac Mild CAUSED Verified 08/25/19 15:04 DIZZINESS trimethoprim AdvReac Mild BACTRIM Verified 08/25/19 15:04 CAUSED DIZZINESS aspirin AdvReac Unknown CAUSES Verified 08/25/19 15:04 BRUISING Home Medications Home Medications Medication Instructions Recorded Confirmed Type Lantus Solostar U-100 Insulin 8 unit SUBCUT HS 11/22/17 08/25/19 History anastrozole 1 mg PO QPM 11/22/17 08/25/19 History aspirin [Aspirin Low Dose] 81 mg PO QPM 11/22/17 08/25/19 History calcium carbonate-vitamin D3 1 tab PO QPM 11/22/17 08/25/19 History [Os-Conrad 500 + D3] cholecalciferol (vitamin D3) 5,000 unit PO QAM 11/22/17 08/25/19 History metoprolol tartrate 12.5 mg PO BID 11/22/17 08/25/19 History multivitamin with minerals 1 tab PO QAM 11/22/17 08/25/19 History pantoprazole 40 mg PO QAM 11/22/17 08/25/19 History prednisone 5 mg PO QAM 11/22/17 08/25/19 History brimonidine 1 drp OPB BID 06/22/18 08/25/19 History dorzolamide 1 drp OPR BID 06/22/18 08/25/19 History ferrous sulfate 325 mg PO BID #0 tab 06/25/18 08/25/19 Rx budesonide-formoterol HFA 80 2 puff INHALATION BID #3 inhaler 02/01/19 08/25/19 Rx mcg-4.5 mcg/actuation aerosol inhaler zafirlukast 20 mg tablet 20 mg PO Q12H #180 tab 02/01/19 08/25/19 Rx albuterol sulfate 90 mcg/actuation 2 - 4 puff INHALATION QID PRN #3 02/15/19 08/25/19 Rx aerosol inhaler inhaler bupropion HCl 300 mg 24 hr tablet, 300 mg PO QAM tab 03/06/19 08/25/19 History extended release bumetanide 0.5 mg tablet 0.5 mg PO .COMPLEX PRN tab 08/03/19 08/25/19 History acetaminophen [Tylenol Extra 500 mg PO Q6H PRN 08/25/19 08/25/19 History Strength] sodium bicarbonate 650 mg PO QDD 08/25/19 08/25/19 History Patient History Medical History Acute osteomyelitis (Resolved 06/05/01) "MRSA of the thoracic spine " On 02/05/12 10:49 Wilfredo Melendez wrote "MRSA of the thoracic spine " Anemia Asthma Breast cancer, left breast X2--1ST)2005 2)2012---SX,RADIATION Chronic back pain Chronic kidney disease, stage V CKD (chronic kidney disease) (Inactive) Deep vein thrombosis L LEG Fibromyalgia GERD (gastroesophageal reflux disease) Glaucoma BILT EYES Hyperlipidemia Hypertension Hyponatremia Pneumonia, organism unspecified (Resolved 02/05/12) Protein S deficiency Rheumatoid arthritis Spinal stenosis Stroke 07/2017--DIFFICULTY WALKING Trigeminal neuralgia Ulcerative colitis Vitamin D deficiency Surgical History H/O bilateral cataract extraction H/O right inguinal hernia repair History of appendectomy History of bowel resection 1993 WITH ILEOSTOMY @ [facility] [place] History of breast biopsy LEFT MALIGNANT X2 History of colonoscopy History of esophagogastroduodenoscopy (EGD) History of gastric surgery 2012---[facility] ON STOMACH WALL History of lumpectomy of left breast X2 2005 WITH LYMPH NODE REMOVAL, 2012 History of tooth extraction ALL TEETH Family History Brother Family history of diabetes mellitus 2 BROTHERS Mother Family hx of colon cancer Father Family hx of colon cancer Social History Preferred Language: Tanzanian Communication Ability: Effective Electrocardiograph Repairer Required: No Beliefs That Will Affect Care: None marital status: Current Living Situation: Spouse Current Living Situation Comment: Patient lives w/ . Other Information That Helps Us Care for You: No Feels Safe at Home: Yes Safety Concerns: Feels Safe At This Time Smoking Status: Former smoker Tobacco Type: cigarettes ; Smoking End Date: 27 y ago ; Second Hand Exposure: Yes ; Hx Alcohol Use: No Hx Substance Use: No Review of Systems Review of Systems: All systems reviewed & are unremarkable except as noted in HPI & below Physical Exam Constitutional: well developed and + obese; no acute distress and not ill appearing Eyes: + anicteric sclerae; no conjunctival abnormality ENMT: Mouth: no oral mucosal abnormality and oral mucous membranes not dry Neck: normal visual inspection and trachea midline Respiratory: normal respiratory effort; no labored breathing Auscultation: lungs clear to auscultation bilaterally Cardiovascular: Rate/Rhythm: + bradycardic Heart Sounds: normal S1 and normal S2; no murmur Vessels: + JVD Extremities: normal capillary refill and + edema Gastrointestinal (Abdomen): Percussion/Palpation: abdomen soft; abdomen nontender ileostomy Musculoskeletal: Extremities: + hand abnormality (DIP nodules and PIP enlargement); no cyanosis and no clubbing Skin: + turgor decreased; no rashes Neurologic: Motor/Sensory: no tremor and no asterixis Psychiatric: Orientation: alert and oriented x 3 Results & Data Vital Signs (Past 12 Hours) Vital Signs Temp Pulse Resp BP Pulse Ox 08/27/19 11:57 148/70 H 08/27/19 11:24 64 16 95 08/27/19 07:54 120/72 08/27/19 07:38 36.5 C 73 16 96 08/27/19 03:06 36.4 C L 74 20 96 Laboratory Results Laboratory Results - last 24 hr 08/26/19 08/26/19 08/27/19 16:50 20:10 05:43 WBC 13.29 H RBC 3.26 L Hgb 10.2 L Hct 31.6 L MCV 96.9 MCH 31.3 MCHC 32.3 RDW Std Deviation 45.0 RDW Coeff of Michelle 12.8 Plt Count 238 MPV 10.1 Sodium Potassium Chloride Carbon Dioxide Anion Gap BUN Creatinine Est Cr Clr Drug Dosing Est GFR ( Amer) Est GFR (Non-Af Amer) BUN/Creatinine Ratio Glucose POC Glucose 103 H 91 Calcium Phosphorus Magnesium NT-Pro-B Natriuret Pep Procalcitonin 08/27/19 08/27/19 08/27/19 05:43 07:52 10:17 WBC RBC Hgb Hct MCV MCH MCHC RDW Std Deviation RDW Coeff of Michelle Plt Count MPV Sodium 136 Potassium 4.2 Chloride 103 Carbon Dioxide 26 Anion Gap 7.0 BUN 55 H Creatinine 3.64 H D Est Cr Clr Drug Dosing 13.7 Est GFR ( Amer) 12.8 Est GFR (Non-Af Amer) 11.1 BUN/Creatinine Ratio 15.2 Glucose 92 POC Glucose 94 Calcium 9.6 Phosphorus 4.3 Magnesium 2.2 NT-Pro-B Natriuret Pep 64818 H Procalcitonin < 0.05 08/27/19 08/27/19 08/27/19 11:44 11:45 12:15 WBC RBC Hgb Hct MCV MCH MCHC RDW Std Deviation RDW Coeff of Michelle Plt Count MPV Sodium Potassium Chloride Carbon Dioxide Anion Gap BUN Creatinine Est Cr Clr Drug Dosing Est GFR ( Amer) Est GFR (Non-Af Amer) BUN/Creatinine Ratio Glucose POC Glucose 62 L* 69 L* 75 Calcium Phosphorus Magnesium NT-Pro-B Natriuret Pep Procalcitonin PG Care Time/CCT Total # of Minutes Spent Total Time Spent with Patient: Total time spent is greater than 50% in sales program coordinator rdination of care (as documented) at patient's floor/unit and/or counseling patient: Coding Level of Care Code 52539 Inpt Consult Level 4 Diagnoses NELSON (acute kidney injury) N17.9 Chronic kidney disease, stage V N18.5 SOB (shortness of breath) R06.02 Hypertension I10 Diabetes mellitus, type 2 E11.9 Protein S deficiency D68.59 Anemia D64.9 Rheumatoid arthritis M06.9
--- NOTE | 2019-08-27 13:15 | Hospitalist Progress Note ---
Date of Service August 27, 2019 Assessment & Plan (1) SOB (shortness of breath): Multifactorial, hypoxic in the upper 80s in the ED. PNA + COPD exacerbation + CHF exacerbation. - DuoNebs standing and PRN - Azithromycin PO given multiple abx adverse reaction - Continue prednisone 40 mg daily for steroid - Hold Bumex 1 mg IV today for increased Cr. -> Had improved yesterday on diuresis, so I thought this was more CHF; however, today (08/26) she is wheezing quite a bit more. She looks fairly euvolemic (and Cr rising), so I held Bumex and restarting standing DuoNebs (had switched to PRN only). Continue steroids. Procalcitonin negative and CXR stable, so I don't think this is a worsening pneumonia. (2) SBO (small bowel obstruction): Recent admission for this, d/c 07/25. Doing well; no recurrent symptoms. Ostomy output is at baseline. - Monitor (3) Chronic kidney disease, stage V: Baseline cr 2.8-3.2, 3.1 on admission. Pt states she would not want HD if that became an issue. - Avoid nephrotoxins. - Cr up to 3.6 today (really not much of a GFR change though). Held Bumex as above. Consulted nephrology. (4) Hypertension: BP elevated in ED with automated cuff, need to use manual. Today is 125/70. - Continue beta-tammy (5) Diabetes mellitus, type 2: A1c was 5.9% in 06/2019. - Continue Lantus 8 units HS - Sliding scale insulin -> Sugars were stable overnight, but dropped after breakfast. Will loosen meal-time coverage. (6) Protein S deficiency: Likely chronic non-occlusive thrombus within the right common femoral vein. - Not on anticoagulation at baseline. - DVT ppx (7) Anemia: Hb on admission 10.1. Was 9.3 on last admission. No s/sx of bleeding. - Monitor (8) Rheumatoid arthritis: No present flares. Daily prednisone use. - On higher prednisone for breathing (9) History of CVA (cerebrovascular accident): No acute CVA concerns. - Continue aspirin 81mg (10) History of DVT (deep vein thrombosis): No current anticoagulation apart from DVT ppx. - Heparin 5000 units SQ Q8h Admission and Anticipated Discharge Date Admission Date: August 25, 2019 Subjective More wheezing today. No cough and no sputum; however, more shortness of breath. Reports no fevers/chills, chest pain, abdominal pain, nausea, or vomiting. Physical Exam Constitutional: WD/WN, vitals as above Eyes: EOM intact bilaterally; no conjunctival abnormality ENMT: external ear and nose normal, oropharynx normal Neck: trachea midline, no thyromegaly normal visual inspection Respiratory: no respiratory distress Auscultation: + wheezes; no crackles and no rhonchi Cardiovascular: RRR, no murmur, no edema Gastrointestinal (Abdomen): Inspection/Auscultation: abdomen normal to inspection; abdomen not distended Musculoskeletal: no cyanosis or clubbing, extremities motor strength 5/5 Skin: no rashes, warm and dry Neurologic: moves all extremities and awake Psychiatric: Orientation: alert, oriented to person and cooperative Results & Data Results & Data ([facility]) Vital Signs (Past 12 Hours) Vital Signs Temp Pulse Resp BP Pulse Ox 08/27/19 11:57 148/70 H 08/27/19 11:24 64 16 95 08/27/19 07:54 120/72 08/27/19 07:38 36.5 C 73 16 96 08/27/19 03:06 36.4 C L 74 20 96 PG Care Time/CCT Total # of Minutes Spent Total Time Spent with Patient: Total time spent is greater than 50% in coordination of care (as documented) at patient's floor/unit and/or counseling patient: Coding Level of Care Code 25007 Subseq Hosp Care Lvl 3 Diagnoses SOB (shortness of breath) R06.02 SBO (small bowel obstruction) K56.609 Chronic kidney disease, stage V N18.5 Hypertension I10 Diabetes mellitus, type 2 E11.9 Protein S deficiency D68.59 Anemia D64.9 Rheumatoid arthritis M06.9 History of CVA (cerebrovascular accident) Z86.73 History of DVT (deep vein thrombosis) Z86.718
[2019-08-27] MEDS ORDERED: BUMETANIDE 1 MG TAB PO SCH (14:00)
[2019-08-27] MEDS: SODIUM BICARBONATE 650 MG TAB PO SCH (17:34)
[2019-08-27] MEDS: ANASTROZOLE 1 MG TAB PO SCH (20:31)
[2019-08-27] MEDS: CALCIUM 600MG + VIT D 400 IU TAB PO SCH (20:31)
[2019-08-27] MEDS: ASPIRIN 81 MG ECTAB PO SCH (20:32)
[2019-08-27] MEDS: INSULIN GLARGINE SOLOSTAR 100 UNITS/ML 3 ML PEN SQ SCH (20:37)
[2019-08-28] MEDS: ACETAMINOPHEN 500 MG TAB PO PRN ×2 (01:24→21:00)
[2019-08-28] MEDS: ALBUT/IPRATROP 3MG/0.5MG NEB 3 ML VIAL NEB SCH ×5 (03:07→19:16)
[2019-08-28] MEDS: HEPARIN 100 UNIT/ML 5ML FLUSH FLUSH PRN (05:44)
[2019-08-28] MEDS: HEPARIN SOD 5,000 UNIT/0.5 ML VIAL SQ SCH ×3 (05:57→22:27)
[2019-08-28 06:31] LABS: Hematocrit (blood only) 32.2 % (37-47); Hemoglobin 10.1 g/dL (12.0-16.0); Mean Corpuscular Hemoglobin 31.3 pg (25-34); Mean Corpuscular Hgb Conc 31.4 g/dL (32-36); Mean Corpuscular Volume 99.7 fL (80-100); Mean Platelet Volume 10.6 fL (7.4-10.4); Platelet Count 262 K/uL (130-400); RDW Coefficient of Variation 12.7 % (11.5-14.5); RDW Standard Deviation 46.2 fL (36.4-46.3); Red Blood Count 3.23 M/uL (4.2-5.4); White Blood Count 13.03 K/uL (4.8-10.8)
[2019-08-28 07:04] LABS: BUN Creatinine Ratio 14.4 (10-20); Calcium 9.7 mg/dl (8.5-10.1); Creatinine Clr Calc Pharmacy 11.5 ml/min; Est GFR (African American) 10.3; Est GFR (Non-African American) 8.9; Magnesium 2.2 mg/dl (1.8-2.4); Potassium 4.4 mmol/L (3.5-5.1)
[2019-08-28] MEDS: AZITHROMYCIN 250 MG TAB PO SCH (08:11)
[2019-08-28] MEDS: CHOLECALCIFEROL 1,000 UNITS 25 MCG TAB PO SCH (08:11)
[2019-08-28] MEDS: predniSONE 20 MG TAB PO SCH (08:11)
[2019-08-28] MEDS: BuPROPion XL 300 MG TABCR PO SCH (08:11)
[2019-08-28] MEDS: FERROUS SULFATE 325 MG TAB PO SCH ×2 (08:11→21:03)
[2019-08-28] MEDS: METOPROLOL TARTRATE 25 MG TAB PO SCH ×2 (08:12→21:01)
[2019-08-28] MEDS: CEROVITE ADV FORMULA TAB PO SCH (08:12)
[2019-08-28] MEDS: PANTOprazole 40 MG TAB PO SCH (08:12)
[2019-08-28] MEDS: FLUTICASONE/VILANTEROL 100/25MCG 14 PUFFS/INHALER INH SCH (08:13)
[2019-08-28] MEDS: BRIMONIDINE TARTRATE 0.2% 5ML OP SCH ×2 (08:15→21:15)
[2019-08-28] MEDS: INSULIN ASPART 100 UNITS/ML 3 ML PEN SC SCH ×4 (08:15→21:16)
[2019-08-28] MEDS: DORZOLAMIDE HCL 2% OPH SOLN 10 ML BTL OPR SCH ×2 (08:15→21:17)
--- NOTE | 2019-08-28 09:01 | Nephrology Progress Note ---
Date of Service August 28, 2019 Assessment & Plan (1) NELSON (acute kidney injury): Non-oliguric. Urine output acceptable. Volume status significantly improved. Bibasilar rales persist but JVP and edema notably improved. Electrolytes acceptable. Florencia reiterated a refusal of dialysis today. Creatinine has risen steeply but there is no current indication to start dialysis. She denies uremic symptoms. She is maintained on oral NaHCO3 with appropriate dosing. Bumex held this AM. UA/micro and renal US will be obtained. Document I/O's. Renal diet. Repeat metabolic profile tomorrow AM. Medications are appropriately dosed for current kidney function. (2) Chronic kidney disease, stage V: Baseline creatinine 2.8-3.2 mg/dL. CKD IV A3. Non-nephrotic range proteinuria. Attributed to glomerulosclerosis associated with obesity, diabetes mellitus II, smoking history, and hypertension. Follows with Dr. Reyes as an outpatient. (3) SOB (shortness of breath): Improving with current therapy including corticosteroids, gentle diuresis, bronchodilators, and azithromycin. Diuretics held this AM. (4) Hypertension: Appropriately controlled. No ANDRES/ARB due to allergies. (5) Diabetes mellitus, type 2: (6) Protein S deficiency: (7) Anemia: Chronic, stable. No need for JESSICA therapy at this time. (8) Rheumatoid arthritis: Admission and Anticipated Discharge Date Admission Date: August 25, 2019 Subjective No acute events overnight. Florencia feels well this morning. Continues to report improvement with breathing treatments. Afebrile. Denies significant orthopnea. No chest pains or palpitations. Appetite is good. Florencia describes ongoing right sided back pain this morning. Symptoms present for >1 week. Pain typically starts after eating and is located under the ribs on the right sided. At home, use of her TENS unit and stretching help provide relief. There is no change in the symptom since admission. Review of Systems Review of Systems: All systems reviewed & are unremarkable except as noted in HPI & below Physical Exam Constitutional: well developed and + obese; no acute distress Eyes: + anicteric sclerae; no conjunctival abnormality ENMT: Mouth: no oral mucosal abnormality and oral mucous membranes not dry Neck: normal visual inspection and trachea midline Respiratory: normal respiratory effort; no labored breathing Auscultation: + rales (basilar) Cardiovascular: Rate/Rhythm: regular rate Heart Sounds: normal S1 and normal S2; no murmur Vessels: no JVD Extremities: + edema (significantly improved) Gastrointestinal (Abdomen): Percussion/Palpation: abdomen soft; abdomen nontender ileostomy Musculoskeletal: Extremities: + hand abnormality (DIP nodules and PIP enlargement); no cyanosis and no clubbing Skin: + turgor decreased; no rashes Neurologic: Motor/Sensory: no tremor and no asterixis Psychiatric: Orientation: alert and oriented x 3 Results & Data ([facility]) Vital Signs (Past 12 Hours) Vital Signs Temp Pulse Pulse Resp BP Pulse Ox 08/28/19 07:21 82 18 95 08/28/19 07:13 36.8 C 86 84 19 138/86 98 08/28/19 03:21 36.5 C 62 18 131/70 94 08/28/19 03:08 71 18 97 08/27/19 23:31 36.3 C L 76 18 134/68 94 08/27/19 22:21 78 Laboratory Results Laboratory Results - last 24 hr 08/27/19 08/27/19 08/27/19 10:17 11:44 11:45 WBC RBC Hgb Hct MCV MCH MCHC RDW Std Deviation RDW Coeff of Michelle Plt Count MPV Sodium Potassium Chloride Carbon Dioxide Anion Gap BUN Creatinine Est Cr Clr Drug Dosing Est GFR ( Amer) Est GFR (Non-Af Amer) BUN/Creatinine Ratio Glucose POC Glucose 62 L* 69 L* Calcium Magnesium Procalcitonin < 0.05 08/27/19 08/27/19 08/27/19 12:15 16:29 20:14 WBC RBC Hgb Hct MCV MCH MCHC RDW Std Deviation RDW Coeff of Michelle Plt Count MPV Sodium Potassium Chloride Carbon Dioxide Anion Gap BUN Creatinine Est Cr Clr Drug Dosing Est GFR ( Amer) Est GFR (Non-Af Amer) BUN/Creatinine Ratio Glucose POC Glucose 75 164 H 199 H Calcium Magnesium Procalcitonin 08/28/19 08/28/19 08/28/19 05:44 05:44 07:30 WBC 13.03 H RBC 3.23 L Hgb 10.1 L Hct 32.2 L MCV 99.7 MCH 31.3 MCHC 31.4 L RDW Std Deviation 46.2 RDW Coeff of Michelle 12.7 Plt Count 262 MPV 10.6 H Sodium 137 Potassium 4.4 Chloride 104 Carbon Dioxide 23 Anion Gap 10.0 BUN 63 H Creatinine 4.35 H D Est Cr Clr Drug Dosing 11.5 Est GFR ( Amer) 10.3 Est GFR (Non-Af Amer) 8.9 BUN/Creatinine Ratio 14.4 Glucose 146 H POC Glucose 155 H Calcium 9.7 Magnesium 2.2 Procalcitonin PG Care Time/CCT Total # of Minutes Spent Total Time Spent with Patient: Total time spent is greater than 50% in coordination of care (as documented) at patient's floor/unit and/or counseling patient: Coding Level of Care Code 16417 Subseq Hosp Care Lvl 3 Diagnoses NELSON (acute kidney injury) N17.9 Chronic kidney disease, stage V N18.5 SOB (shortness of breath) R06.02 Hypertension I10 Diabetes mellitus, type 2 E11.9 Protein S deficiency D68.59 Anemia D64.9 Rheumatoid arthritis M06.9
--- NOTE | 2019-08-28 10:10 | Ultrasound Report ---
US renal/blad retro comp HISTORY: Renal insufficiency NELSON COMPARISON: None. FINDINGS: Right kidney: Maximum dimension 9.2 cm. No evidence for hydronephrosis. 1.2 cm lower pole cyst. Dolly l corticomedullary differentiation and cortical thickness. Left kidney: Maximum dimension 7.7 cm. Mild atrophy. No evidence for hydronephrosis. Normal corticom edullary differentiation and cortical thickness. Bladder: No bladder wall thickening. The bilateral ureteral jets were identified. IMPRESSION: 1. Mild left renal atrophy. 2. Small right renal cyst. 3. No evidence for hydronephrosis. ACT 112: Negative or not required by law. The above report was generated using voice recognition software. It may contain grammatical, syntax or spelling errors. Electronically signed by: Maxwell Irizarry M.D. 08/28/2019 10:08 AM
[2019-08-28] MEDS ORDERED: HYDROCODONE/ACETAMOPHEN 5/325MG TAB PO PRN (12:27)
[2019-08-28] MEDS ORDERED: DICLOFENAC SOD 1% GEL 100 GM TUBE EXT PRN (12:27)
--- NOTE | 2019-08-28 12:30 | Hospitalist Progress Note ---
Date of Service August 28, 2019 Assessment & Plan (1) SOB (shortness of breath): Multifactorial, hypoxic in the upper 80s in the ED. Questionable PNA + COPD exacerbation + CHF exacerbation. Now overall much improved with starting prednisone and diuresing, terating with azithromycin for bronchitis -continue DuoNebs standing and PRN - continue Azithromycin PO x 5 day course - Continue prednisone 40 mg daily for steroid-today day #2 - continue to hold Bumex for increased Cr. 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 Doing well; no recurrent symptoms. Ostomy output is at baseline. - Monitor (6) Chronic kidney disease, stage V: Baseline cr 2.8-3.2, 3.1 on admission. Pt states she would not want HD if that became an issue. - Avoid nephrotoxins. (7) Hypertension: BP elevated mildly - Continue beta-tammy (8) Diabetes mellitus, type 2: A1c was 5.9% in 06/2019. 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 - Not on anticoagulation at baseline. - DVT ppx (10) Anemia: Hb on admission 10.1. Was 9.3 on last admission. No s/sx of bleeding. - Monitor (11) Rheumatoid arthritis: No present flares. Daily prednisone use. - On higher prednisone for breathing as above and will taper back down to home dose of prednisone 5mg daily (12) History of CVA (cerebrovascular accident): No acute CVA concerns. - Continue aspirin 81mg (13) History of DVT (deep vein thrombosis): No current anticoagulation apart from DVT ppx. - Heparin 5000 units SQ Q8h (14) GERD (gastroesophageal reflux disease): continue PPI (15) Vitamin D deficiency: continue vit D (16) Back pain: ongoing x 1 month, can last all day long, mid right back Relieved with heating pad and is +TTP nothing seen on imaging w/ Renal US -continue heating pad -add voltaren gel prn and hydrocodone prn severe pain (17) DVT prophylaxis: Heparin SQ Dispo-continued stay on med-tele Admission and Anticipated Discharge Date Admission Date: August 25, 2019 Subjective Pt reports one month of right sided mid back pain that is tender to the toucha nd relieved with heating pad and taking tylenol at home. Has been severe at times at nighttime and requests something stronger for prn use at nighttime. Otherwise, denies SOB and reports leg swelling is improved. Denies chest pain, no nausea. Tele with NSR rates 70-80s, PVCs Review of Systems Review of Systems: All systems reviewed & are unremarkable except as noted in HPI & below Physical Exam Constitutional: WD/WN, vitals as above + obese Eyes: + anicteric sclerae Neck: trachea midline, no thyromegaly Respiratory: normal respiratory effort, lungs clear to auscultation Cardiovascular: RRR, no murmur, no edema Chest (Breasts): Chest: normal inspection of chest Gastrointestinal (Abdomen): normal bowel sounds, soft, nontender, no hepatosplenomegaly Musculoskeletal: Extremities: extremities normal to inspection; no cyanosis and no clubbing Skin: no rashes, warm and dry Neurologic: moves all extremities and awake; no focal motor deficits Psychiatric: A+Ox3, euthymic affect Lymphatic: no lymphedema Results & Data Results & Data ([facility]) Vital Signs (Past 12 Hours) Vital Signs Temp Pulse Pulse Resp BP Pulse Ox 08/28/19 11:25 36.3 C L 75 19 138/80 94 08/28/19 11:11 70 18 91 08/28/19 07:21 82 18 95 08/28/19 07:13 36.8 C 86 84 19 138/86 98 08/28/19 03:21 36.5 C 62 18 131/70 94 08/28/19 03:08 71 18 97 Laboratory Results 08/28/19 08/28/19 08/28/19 Range/Units 20:24 16:07 15:58 WBC (4.8-10.8) K/uL RBC (4.2-5.4) M/uL Hgb (12.0-16.0) g/dL Hct (37-47) % MCV (80-100) fL MCH (25-34) pg MCHC (32-36) g/dL RDW Std Deviation (36.4-46.3) fL RDW Coeff of Michelle (11.5-14.5) % Plt Count (130-400) K/uL MPV (7.4-10.4) fL Sodium 135 L (136-145) mmol/L Potassium 4.1 (3.5-5.1) mmol/L Chloride 101 (98-107) mmol/L Carbon Dioxide 23 (21-32) mmol/L Anion Gap 11.0 (3-11) BUN 65 H (7-18) mg/dl Creatinine 4.18 H (0.6-1.2) mg/dl Est Cr Clr Drug Dosing 12.0 ml/min Est GFR ( Amer) 10.9 Est GFR (Non-Af Amer) 9.4 BUN/Creatinine Ratio 15.4 (10-20) Glucose 164 H (70-99) mg/dl POC Glucose 109 H 135 H (70-99) mg/dl Calcium 9.4 (8.5-10.1) mg/dl Magnesium (1.8-2.4) mg/dl 08/28/19 08/28/19 08/28/19 Range/Units 11:41 07:30 05:44 WBC (4.8-10.8) K/uL RBC (4.2-5.4) M/uL Hgb (12.0-16.0) g/dL Hct (37-47) % MCV (80-100) fL MCH (25-34) pg MCHC (32-36) g/dL RDW Std Deviation (36.4-46.3) fL RDW Coeff of Michelle (11.5-14.5) % Plt Count (130-400) K/uL MPV (7.4-10.4) fL Sodium 137 (136-145) mmol/L Potassium 4.4 (3.5-5.1) mmol/L Chloride 104 (98-107) mmol/L Carbon Dioxide 23 (21-32) mmol/L Anion Gap 10.0 (3-11) BUN 63 H (7-18) mg/dl Creatinine 4.35 H D (0.6-1.2) mg/dl Est Cr Clr Drug Dosing 11.5 ml/min Est GFR ( Amer) 10.3 Est GFR (Non-Af Amer) 8.9 BUN/Creatinine Ratio 14.4 (10-20) Glucose 146 H (70-99) mg/dl POC Glucose 123 H 155 H (70-99) mg/dl Calcium 9.7 (8.5-10.1) mg/dl Magnesium 2.2 (1.8-2.4) mg/dl 08/28/19 Range/Units 05:44 WBC 13.03 H (4.8-10.8) K/uL RBC 3.23 L (4.2-5.4) M/uL Hgb 10.1 L (12.0-16.0) g/dL Hct 32.2 L (37-47) % MCV 99.7 (80-100) fL MCH 31.3 (25-34) pg MCHC 31.4 L (32-36) g/dL RDW Std Deviation 46.2 (36.4-46.3) fL RDW Coeff of Michelle 12.7 (11.5-14.5) % Plt Count 262 (130-400) K/uL MPV 10.6 H (7.4-10.4) fL Sodium (136-145) mmol/L Potassium (3.5-5.1) mmol/L Chloride (98-107) mmol/L Carbon Dioxide (21-32) mmol/L Anion Gap (3-11) BUN (7-18) mg/dl Creatinine (0.6-1.2) mg/dl Est Cr Clr Drug Dosing ml/min Est GFR ( Amer) Est GFR (Non-Af Amer) BUN/Creatinine Ratio (10-20) Glucose (70-99) mg/dl POC Glucose (70-99) mg/dl Calcium (8.5-10.1) mg/dl Magnesium (1.8-2.4) mg/dl PG Care Time/CCT Total # of Minutes Spent Total Time Spent with Patient: Total time spent is greater than 50% in coordination of care (as documented) at patient's floor/unit and/or counseling patient: Coding Level of Care Code 23513 Subseq Hosp Care Lvl 3 Diagnoses SOB (shortness of breath) R06.02 CHF (congestive heart failure) I50.9 Asthma exacerbation J45.901 Asthma persistence: unspecified Asthma severity: mild NELSON (acute kidney injury) N17.9 SBO (small bowel obstruction) K56.609 Chronic kidney disease, stage V N18.5 Hypertension I10 Diabetes mellitus, type 2 E11.9 Protein S deficiency D68.59 Anemia D64.9 Rheumatoid arthritis M06.9 History of CVA (cerebrovascular accident) Z86.73 History of DVT (deep vein thrombosis) Z86.718 GERD (gastroesophageal reflux disease) K21.9 Vitamin D deficiency E55.9 Back pain M54.9 DVT prophylaxis Z29.9 (1) Asthma exacerbation Asthma persistence: unspecified Asthma severity: mild Qualified Code(s): J45.901 - Unspecified asthma with (acute) exacerbation
[2019-08-28] MEDS: SODIUM BICARBONATE 650 MG TAB PO SCH (16:08)
[2019-08-28 16:45] LABS: BUN Creatinine Ratio 15.4 (10-20); Calcium 9.4 mg/dl (8.5-10.1); Est GFR (African American) 10.9; Est GFR (Non-African American) 9.4; Potassium 4.1 mmol/L (3.5-5.1)
[2019-08-28] MEDS: CALCIUM 600MG + VIT D 400 IU TAB PO SCH (21:02)
[2019-08-28] MEDS: ASPIRIN 81 MG ECTAB PO SCH (21:04)
[2019-08-28] MEDS: INSULIN GLARGINE SOLOSTAR 100 UNITS/ML 3 ML PEN SQ SCH (21:14)
[2019-08-28] MEDS: ANASTROZOLE 1 MG TAB PO SCH (21:15)
[2019-08-29] MEDS: HEPARIN 100 UNIT/ML 5ML FLUSH FLUSH PRN (05:37)
[2019-08-29] MEDS: ACETAMINOPHEN 500 MG TAB PO PRN ×2 (06:15→19:02)
[2019-08-29] MEDS: HEPARIN SOD 5,000 UNIT/0.5 ML VIAL SQ SCH ×3 (06:15→21:25)
[2019-08-29 06:33] LABS: Hematocrit (blood only) 32.2 % (37-47); Hemoglobin 9.9 g/dL (12.0-16.0); Mean Corpuscular Hemoglobin 30.7 pg (25-34); Mean Corpuscular Hgb Conc 30.7 g/dL (32-36); Mean Corpuscular Volume 99.7 fL (80-100); Mean Platelet Volume 10.5 fL (7.4-10.4); Platelet Count 242 K/uL (130-400); RDW Coefficient of Variation 12.8 % (11.5-14.5); RDW Standard Deviation 46.8 fL (36.4-46.3); Red Blood Count 3.23 M/uL (4.2-5.4); White Blood Count 11.88 K/uL (4.8-10.8)
[2019-08-29] MEDS: ALBUT/IPRATROP 3MG/0.5MG NEB 3 ML VIAL NEB SCH ×4 (06:57→19:13)
[2019-08-29 07:07] LABS: Albumin Level 3.1 gm/dl (3.4-5.0); BUN Creatinine Ratio 16.1 (10-20); Calcium 9.8 mg/dl (8.5-10.1); Creatinine Clr Calc Pharmacy 11.8 ml/min; Est GFR (African American) 10.6; Est GFR (Non-African American) 9.2; Potassium 4.2 mmol/L (3.5-5.1)
[2019-08-29 07:10] LABS: Bilirubin,Total 0.3 mg/dl (0.2-1); Globulin 3.1 gm/dl (2.5-4.0); Phosphorus 3.9 mg/dl (2.5-4.9); Total Protein 6.2 gm/dl (6.4-8.2)
[2019-08-29] MEDS: BRIMONIDINE TARTRATE 0.2% 5ML OP SCH ×2 (07:35→21:26)
[2019-08-29] MEDS: BuPROPion XL 300 MG TABCR PO SCH (07:35)
[2019-08-29] MEDS: CEROVITE ADV FORMULA TAB PO SCH (07:35)
[2019-08-29] MEDS: FLUTICASONE/VILANTEROL 100/25MCG 14 PUFFS/INHALER INH SCH (07:35)
[2019-08-29] MEDS: AZITHROMYCIN 250 MG TAB PO SCH (07:36)
[2019-08-29] MEDS: METOPROLOL TARTRATE 25 MG TAB PO SCH ×2 (07:36→21:28)
[2019-08-29] MEDS: CHOLECALCIFEROL 1,000 UNITS 25 MCG TAB PO SCH (07:36)
[2019-08-29] MEDS: PANTOprazole 40 MG TAB PO SCH (07:36)
[2019-08-29] MEDS: predniSONE 20 MG TAB PO SCH (07:36)
[2019-08-29] MEDS: FERROUS SULFATE 325 MG TAB PO SCH ×2 (07:37→21:28)
[2019-08-29] MEDS: DORZOLAMIDE HCL 2% OPH SOLN 10 ML BTL OPR SCH ×2 (07:37→21:27)
[2019-08-29] MEDS: INSULIN ASPART 100 UNITS/ML 3 ML PEN SC SCH ×4 (08:32→21:24)
--- NOTE | 2019-08-29 09:05 | Nephrology Progress Note ---
Date of Service August 29, 2019 Assessment & Plan (1) NELSON (acute kidney injury): Creatinine stable at 4.2 mg/dL. Electrolytes remain within normal limits. Remains on oral NaHCO3 replacement. Volume status acceptable. Florencia denies uremic symptoms. Diuretics held. Goal is to maintain a relatively even fluid balance. UA/micro pending. US demonstrates cortical atrophy and renal asymmetry. Cannot exclude underlying renovascular disease. Additional evaluation deferred at this time as unlikely to exchange administrator. Document I/O's. Renal diet. Repeat metabolic profile tomorrow AM. Medications are appropriately dosed for current kidney function. (2) Chronic kidney disease, stage V: Baseline creatinine 2.8-3.2 mg/dL. CKD IV A3. Non-nephrotic range proteinuria. Attributed to glomerulosclerosis associated with obesity, diabetes mellitus II, smoking history, and hypertension. Follows with Dr. Reyes as an outpatient. (3) SOB (shortness of breath): Very slowly improving with current therapy including corticosteroids, gentle diuresis, bronchodilators, and azithromycin. (4) Hypertension: Appropriately controlled. No ANDRES/ARB due to allergies. (5) Diabetes mellitus, type 2: (6) Protein S deficiency: (7) Anemia: Chronic, stable. No need for JESSICA therapy at this time. (8) Rheumatoid arthritis: Admission and Anticipated Discharge Date Admission Date: August 25, 2019 Subjective No acute events overnight. Back pain slightly improved. Remains dyspneic with minimal activity. Continues to report intermittent improvement with bronchodilators treatments. Overall improving but activity tolerance very limited. No fevers, chills, or cough. Back pain improved. Appetite good. No nausea. No abdominal pain. No chest pain or palpitations. Review of Systems Review of Systems: All systems reviewed & are unremarkable except as noted in HPI & below Physical Exam Constitutional: well developed and + obese; no acute distress Eyes: + anicteric sclerae; no conjunctival abnormality ENMT: Mouth: no oral mucosal abnormality and oral mucous membranes not dry Neck: normal visual inspection and trachea midline Respiratory: normal respiratory effort; no labored breathing Auscultation: + rales (few scattered R>L base) Cardiovascular: Rate/Rhythm: regular rate Heart Sounds: normal S1 and normal S2; no murmur Vessels: no JVD Extremities: + edema (significantly improved) Gastrointestinal (Abdomen): Percussion/Palpation: abdomen soft; abdomen nontender Musculoskeletal: Extremities: + hand abnormality (DIP nodules and PIP enlargement); no cyanosis and no clubbing Skin: + turgor decreased; no rashes Neurologic: Motor/Sensory: no tremor and no asterixis Psychiatric: Orientation: alert and oriented x 3 Results & Data ([facility]) Vital Signs (Past 12 Hours) Vital Signs Temp Pulse Pulse Resp BP Pulse Ox 08/29/19 08:00 82 08/29/19 07:30 36.6 C 83 20 142/80 H 96 08/29/19 06:58 76 20 97 08/29/19 04:00 36.3 C L 18 97 08/29/19 00:10 85 08/28/19 23:00 36.5 C 75 18 95 08/28/19 21:30 134/70 Laboratory Results Laboratory Results - last 24 hr 08/28/19 08/28/19 08/28/19 11:41 15:58 16:07 WBC RBC Hgb Hct MCV MCH MCHC RDW Std Deviation RDW Coeff of Michelle Plt Count MPV Sodium 135 L Potassium 4.1 Chloride 101 Carbon Dioxide 23 Anion Gap 11.0 BUN 65 H Creatinine 4.18 H Est Cr Clr Drug Dosing 12.0 Est GFR ( Amer) 10.9 Est GFR (Non-Af Amer) 9.4 BUN/Creatinine Ratio 15.4 Glucose 164 H POC Glucose 123 H 135 H Calcium 9.4 Phosphorus Total Bilirubin AST ALT Alkaline Phosphatase Total Creatine Kinase Total Protein Albumin Globulin Albumin/Globulin Ratio 08/28/19 08/29/19 08/29/19 20:24 02:50 05:37 WBC 11.88 H RBC 3.23 L Hgb 9.9 L Hct 32.2 L MCV 99.7 MCH 30.7 MCHC 30.7 L RDW Std Deviation 46.8 H RDW Coeff of Michelle 12.8 Plt Count 242 MPV 10.5 H Sodium Potassium Chloride Carbon Dioxide Anion Gap BUN Creatinine Est Cr Clr Drug Dosing Est GFR ( Amer) Est GFR (Non-Af Amer) BUN/Creatinine Ratio Glucose POC Glucose 109 H 108 H Calcium Phosphorus Total Bilirubin AST ALT Alkaline Phosphatase Total Creatine Kinase Total Protein Albumin Globulin Albumin/Globulin Ratio 08/29/19 08/29/19 08/29/19 05:37 05:49 07:56 WBC RBC Hgb Hct MCV MCH MCHC RDW Std Deviation RDW Coeff of Michelle Plt Count MPV Sodium 136 Potassium 4.2 Chloride 103 Carbon Dioxide 25 Anion Gap 8.0 BUN 69 H Creatinine 4.26 H Est Cr Clr Drug Dosing 11.8 Est GFR ( Amer) 10.6 Est GFR (Non-Af Amer) 9.2 BUN/Creatinine Ratio 16.1 Glucose 92 POC Glucose 99 101 H Calcium 9.8 Phosphorus 3.9 Total Bilirubin 0.3 AST 18 ALT 22 Alkaline Phosphatase 53 Total Creatine Kinase 53 Total Protein 6.2 L Albumin 3.1 L Globulin 3.1 Albumin/Globulin Ratio 1.0 PG Care Time/CCT Total # of Minutes Spent Total Time Spent with Patient: Total time spent is greater than 50% in coordination of care (as documented) at patient's floor/unit and/or counseling patient: Coding Level of Care Code 80876 Subseq Hosp Care Lvl 3 Diagnoses NELSON (acute kidney injury) N17.9 Chronic kidney disease, stage V N18.5 SOB (shortness of breath) R06.02 Hypertension I10 Diabetes mellitus, type 2 E11.9 Protein S deficiency D68.59 Anemia D64.9 Rheumatoid arthritis M06.9
--- NOTE | 2019-08-29 12:45 | Hospitalist Progress Note ---
Date of Service August 29, 2019 Assessment & Plan (1) SOB (shortness of breath): Multifactorial, hypoxic in the upper 80s in the ED-now much improved and not requiring any oxygen even with ambulation. With questionable PNA + COPD exacerbation + CHF exacerbation all contributing. Now overall much improved with starting prednisone and diuresing, treating with azithromycin for bronchitis -continue DuoNebs standing and PRN - continue Azithromycin PO x 5 day course - Continue prednisone and will taper down to 20 mg daily for tomorrow -Add melatonin for sleep which may be related to prednisone - continue to hold Bumex for increased Cr. 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, daily weights, low Na+ diet -Discussed with nephrology-we will plan to use Bumex 0.5 mg daily only for as needed weight gain and lower extremity edema (3) Asthma exacerbation: as above, improving now nad no wheezing with scheduled bronchodilators and with starting prednisone -Taper down prednisone (4) NELSON (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 Doing well; no recurrent symptoms. Ostomy output is at baseline. - Monitor (6) Chronic kidney disease, stage V: Baseline cr 2.8-3.2, 3.1 on admission. Pt states she would not want HD if that became an issue. - Avoid nephrotoxins. (7) Hypertension: BP elevated mildly - Continue beta-tammy (8) Diabetes mellitus, type 2: A1c was 5.9% in 06/2019. 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 - Not on anticoagulation at baseline due to history of frequent bleeding from her ostomy site as well as history of large hematoma while on aspirin and Plavix. - DVT ppx (10) Anemia: Hb on admission 10.1. Hemoglobin today down to 9.9 with no s/sx of bleeding. - Monitor Likely anemia of renal disease-may also be contributing to her shortness of breath (11) Rheumatoid arthritis: No present flares. Daily prednisone 5 mg p.o. daily use. - On higher prednisone for breathing as above and will taper back down to home dose of prednisone 5mg daily (12) History of CVA (cerebrovascular accident): No acute CVA concerns. - Continue aspirin 81mg (13) History of DVT (deep vein thrombosis): No current anticoagulation apart from DVT ppx. - Heparin 5000 units SQ Q8h (14) GERD (gastroesophageal reflux disease): continue PPI (15) Vitamin D deficiency: continue vit D (16) Back pain: ongoing x 1 month, can last all day long, mid right back Improved now Relieved with heating pad and is +TTP on examination nothing seen on imaging w/ Renal US -continue heating pad -added voltaren gel prn and hydrocodone prn severe pain (17) DVT prophylaxis: Heparin SQ Dispo-continued stay on [facility], but hopeful for discharge to home tomorrow Admission and Anticipated Discharge Date Admission Date: August 25, 2019 Subjective Had a bad night last night, only slept about an hour total. [place] very restless and anxious. Could be from the prednisone. Shortness of breath and cough are improved. She walked with respiratory therapy today and her pulse ox did not drop below 95% Denies chest pain or nausea. She is eating well. She would like to stay 1 more night to see if a better nights rest helps her feel better. I discussed the case with nephrology Telemetry with normal sinus rhythm, PVCs, rate 70s Review of Systems Review of Systems: All systems reviewed & are unremarkable except as noted in HPI & below Physical Exam Constitutional: WD/WN, vitals as above + obese Eyes: + anicteric sclerae Neck: trachea midline, no thyromegaly Respiratory: normal respiratory effort, lungs clear to auscultation Cardiovascular: RRR, no murmur, no edema Chest (Breasts): Chest: normal inspection of chest Gastrointestinal (Abdomen): normal bowel sounds, soft, nontender, no hepatosplenomegaly Musculoskeletal: Extremities: extremities normal to inspection; no cyanosis and no clubbing Skin: no rashes, warm and dry Neurologic: moves all extremities and awake; no focal motor deficits Psychiatric: A+Ox3, euthymic affect Lymphatic: no lymphedema Results & Data Results & Data ([facility]) Vital Signs (Past 12 Hours) Vital Signs Temp Pulse Pulse Pulse Pulse Pulse Resp 08/29/19 12:00 36.7 C 74 20 08/29/19 10:52 92 H 20 08/29/19 10:51 110 H 92 H 84 08/29/19 08:00 82 08/29/19 07:30 36.6 C 83 20 08/29/19 06:58 76 20 08/29/19 04:00 36.3 C L 18 Resp Resp Resp BP Pulse Ox Pulse Ox Pulse Ox 08/29/19 12:00 130/72 94 08/29/19 10:52 95 08/29/19 10:51 22 20 16 96 95 08/29/19 08:00 08/29/19 07:30 142/80 H 96 08/29/19 06:58 97 08/29/19 04:00 97 Pulse Ox 08/29/19 12:00 08/29/19 10:52 08/29/19 10:51 95 08/29/19 08:00 08/29/19 07:30 08/29/19 06:58 08/29/19 04:00 Laboratory Results 08/29/19 08/29/19 08/29/19 Range/Units 11:50 07:56 05:49 WBC (4.8-10.8) K/uL RBC (4.2-5.4) M/uL Hgb (12.0-16.0) g/dL Hct (37-47) % MCV (80-100) fL MCH (25-34) pg MCHC (32-36) g/dL RDW Std Deviation (36.4-46.3) fL RDW Coeff of Michelle (11.5-14.5) % Plt Count (130-400) K/uL MPV (7.4-10.4) fL Sodium (136-145) mmol/L Potassium (3.5-5.1) mmol/L Chloride (98-107) mmol/L Carbon Dioxide (21-32) mmol/L Anion Gap (3-11) BUN (7-18) mg/dl Creatinine (0.6-1.2) mg/dl Est Cr Clr Drug Dosing ml/min Est GFR ( Amer) Est GFR (Non-Af Amer) BUN/Creatinine Ratio (10-20) Glucose (70-99) mg/dl POC Glucose 219 H 101 H 99 (70-99) mg/dl Calcium (8.5-10.1) mg/dl Phosphorus (2.5-4.9) mg/dl Total Bilirubin (0.2-1) mg/dl AST (15-37) U/L ALT (12-78) U/L Alkaline Phosphatase (45-117) U/L Total Creatine Kinase (26-192) U/L Total Protein (6.4-8.2) gm/dl Albumin (3.4-5.0) gm/dl Globulin (2.5-4.0) gm/dl Albumin/Globulin Ratio (0.9-2) 08/29/19 08/29/19 08/29/19 Range/Units 05:37 05:37 02:50 WBC 11.88 H (4.8-10.8) K/uL RBC 3.23 L (4.2-5.4) M/uL Hgb 9.9 L (12.0-16.0) g/dL Hct 32.2 L (37-47) % MCV 99.7 (80-100) fL MCH 30.7 (25-34) pg MCHC 30.7 L (32-36) g/dL RDW Std Deviation 46.8 H (36.4-46.3) fL RDW Coeff of Michelle 12.8 (11.5-14.5) % Plt Count 242 (130-400) K/uL MPV 10.5 H (7.4-10.4) fL Sodium 136 (136-145) mmol/L Potassium 4.2 (3.5-5.1) mmol/L Chloride 103 (98-107) mmol/L Carbon Dioxide 25 (21-32) mmol/L Anion Gap 8.0 (3-11) BUN 69 H (7-18) mg/dl Creatinine 4.26 H (0.6-1.2) mg/dl Est Cr Clr Drug Dosing 11.8 ml/min Est GFR ( Amer) 10.6 Est GFR (Non-Af Amer) 9.2 BUN/Creatinine Ratio 16.1 (10-20) Glucose 92 (70-99) mg/dl POC Glucose 108 H (70-99) mg/dl Calcium 9.8 (8.5-10.1) mg/dl Phosphorus 3.9 (2.5-4.9) mg/dl Total Bilirubin 0.3 (0.2-1) mg/dl AST 18 (15-37) U/L ALT 22 (12-78) U/L Alkaline Phosphatase 53 (45-117) U/L Total Creatine Kinase 53 (26-192) U/L Total Protein 6.2 L (6.4-8.2) gm/dl Albumin 3.1 L (3.4-5.0) gm/dl Globulin 3.1 (2.5-4.0) gm/dl Albumin/Globulin Ratio 1.0 (0.9-2) 08/28/19 08/28/19 08/28/19 Range/Units 20:24 16:07 15:58 WBC (4.8-10.8) K/uL RBC (4.2-5.4) M/uL Hgb (12.0-16.0) g/dL Hct (37-47) % MCV (80-100) fL MCH (25-34) pg MCHC (32-36) g/dL RDW Std Deviation (36.4-46.3) fL RDW Coeff of Michelle (11.5-14.5) % Plt Count (130-400) K/uL MPV (7.4-10.4) fL Sodium 135 L (136-145) mmol/L Potassium 4.1 (3.5-5.1) mmol/L Chloride 101 (98-107) mmol/L Carbon Dioxide 23 (21-32) mmol/L Anion Gap 11.0 (3-11) BUN 65 H (7-18) mg/dl Creatinine 4.18 H (0.6-1.2) mg/dl Est Cr Clr Drug Dosing 12.0 ml/min Est GFR ( Amer) 10.9 Est GFR (Non-Af Amer) 9.4 BUN/Creatinine Ratio 15.4 (10-20) Glucose 164 H (70-99) mg/dl POC Glucose 109 H 135 H (70-99) mg/dl Calcium 9.4 (8.5-10.1) mg/dl Phosphorus (2.5-4.9) mg/dl Total Bilirubin (0.2-1) mg/dl AST (15-37) U/L ALT (12-78) U/L Alkaline Phosphatase (45-117) U/L Total Creatine Kinase (26-192) U/L Total Protein (6.4-8.2) gm/dl Albumin (3.4-5.0) gm/dl Globulin (2.5-4.0) gm/dl Albumin/Globulin Ratio (0.9-2) PG Care Time/CCT Total # of Minutes Spent Total Time Spent with Patient: Total time spent is greater than 50% in coordination of care (as documented) at patient's floor/unit and/or counseling patient: Coding Level of Care Code 67241 Subseq Hosp Care Lvl 3 Diagnoses SOB (shortness of breath) R06.02 CHF (congestive heart failure) I50.9 Asthma exacerbation J45.901 Asthma persistence: unspecified Asthma severity: mild NELSON (acute kidney injury) N17.9 SBO (small bowel obstruction) K56.609 Chronic kidney disease, stage V N18.5 Hypertension I10 Diabetes mellitus, type 2 E11.9 Protein S deficiency D68.59 Anemia D64.9 Rheumatoid arthritis M06.9 History of CVA (cerebrovascular accident) Z86.73 History of DVT (deep vein thrombosis) Z86.718 GERD (gastroesophageal reflux disease) K21.9 Vitamin D deficiency E55.9 Back pain M54.9 DVT prophylaxis Z29.9 (1) Asthma exacerbation Asthma persistence: unspecified Asthma severity: mild Qualified Code(s): J45.901 - Unspecified asthma with (acute) exacerbation
[2019-08-29] MEDS: SODIUM BICARBONATE 650 MG TAB PO SCH (17:33)
[2019-08-29] MEDS: INSULIN GLARGINE SOLOSTAR 100 UNITS/ML 3 ML PEN SQ SCH (21:24)
[2019-08-29] MEDS: ANASTROZOLE 1 MG TAB PO SCH (21:27)
[2019-08-29] MEDS: ASPIRIN 81 MG ECTAB PO SCH (21:27)
[2019-08-29] MEDS: MELATONIN 3 MG TAB PO SCH (21:58)
[2019-08-29] MEDS: CALCIUM 600MG + VIT D 400 IU TAB PO SCH (21:59)
[2019-08-30] MEDS: HEPARIN SOD 5,000 UNIT/0.5 ML VIAL SQ SCH ×3 (06:12→21:19)
[2019-08-30] MEDS: ALBUT/IPRATROP 3MG/0.5MG NEB 3 ML VIAL NEB SCH ×4 (06:57→19:25)
[2019-08-30] MEDS: INSULIN ASPART 100 UNITS/ML 3 ML PEN SC SCH ×4 (08:14→20:30)
[2019-08-30] MEDS: AZITHROMYCIN 250 MG TAB PO SCH (08:15)
[2019-08-30] MEDS: METOPROLOL TARTRATE 25 MG TAB PO SCH ×2 (08:15→21:18)
[2019-08-30] MEDS: CEROVITE ADV FORMULA TAB PO SCH (08:15)
[2019-08-30] MEDS: PANTOprazole 40 MG TAB PO SCH (08:15)
[2019-08-30] MEDS: BuPROPion XL 300 MG TABCR PO SCH (08:15)
[2019-08-30] MEDS: predniSONE 20 MG TAB PO SCH (08:15)
[2019-08-30] MEDS: FERROUS SULFATE 325 MG TAB PO SCH ×2 (08:16→21:25)
[2019-08-30] MEDS: FLUTICASONE/VILANTEROL 100/25MCG 14 PUFFS/INHALER INH SCH (08:16)
[2019-08-30] MEDS: BRIMONIDINE TARTRATE 0.2% 5ML OP SCH ×2 (08:17→21:25)
[2019-08-30] MEDS: CHOLECALCIFEROL 1,000 UNITS 25 MCG TAB PO SCH (08:17)
[2019-08-30 08:22] LABS: Albumin Level 2.9 gm/dl (3.4-5.0); BUN Creatinine Ratio 16.9 (10-20); Calcium 9.3 mg/dl (8.5-10.1); Creatinine Clr Calc Pharmacy 12.1 ml/min; Est GFR (African American) 10.9; Est GFR (Non-African American) 9.4; Potassium 4.2 mmol/L (3.5-5.1)
[2019-08-30] MEDS: DORZOLAMIDE HCL 2% OPH SOLN 10 ML BTL OPR SCH ×2 (08:22→21:19)
[2019-08-30 08:25] LABS: Bilirubin,Total 0.3 mg/dl (0.2-1); Globulin 2.9 gm/dl (2.5-4.0); Total Protein 5.8 gm/dl (6.4-8.2)
--- NOTE | 2019-08-30 09:56 | Nephrology Progress Note ---
Date of Service August 30, 2019 Assessment & Plan (1) NELSON (acute kidney injury): Creatinine stable at 4.2 mg/dL. Electrolytes remain within normal limits. Remains on oral NaHCO3 replacement. Volume status acceptable. Weight is up another 1 kg despite documented slightly negative IO/O's. Florencia denies uremic symptoms. Diuretics held. Goal is to maintain a relatively even fluid balance. May consider a low dose of Bumex PO today, 0.5 mg PO. I discussed the plan of care with Dr. Jha this morning. A non-contrast CT chest has been ordered. UA/micro pending. US demonstrates cortical atrophy and renal asymmetry. Cannot exclude underlying renovascular disease. 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 Document I/O's. Renal diet. Repeat metabolic profile tomorrow AM. Medications are appropriately dosed for current kidney function. (2) Chronic kidney disease, stage V: Baseline creatinine 2.8-3.2 mg/dL. CKD IV A3. Non-nephrotic range proteinuria. Attributed to glomerulosclerosis associated with obesity, diabetes mellitus II, smoking history, and hypertension. Follows with Dr. Reyes as an outpatient. (3) SOB (shortness of breath): Improvement seems to have plateaued with current therapy including corticosteroids, gentle diuresis, bronchodilators, and azithromycin. (4) Hypertension: Appropriately controlled. No ANDRES/ARB due to allergies. (5) Diabetes mellitus, type 2: (6) Protein S deficiency: (7) Anemia: Chronic, stable. No need for JESSICA therapy at this time. (8) Rheumatoid arthritis: Admission and Anticipated Discharge Date Admission Date: August 25, 2019 Subjective No acute events overnight. Florencia states that she is wheezing more today than yesterday. She continues to feel dyspneic with minimal activity. Denies significant dyspnea at rest. Activity tolerance is limited. I/O's demonstrate a slightly negative fluid balance but weight is rising. Florencia has not noticed any increasing edema. She denies fevers or chills. She denies cough. She denies chest pain or palpitations. Review of Systems Review of Systems: All systems reviewed & are unremarkable except as noted in HPI & below Physical Exam Constitutional: well developed and + obese; no acute distress Eyes: + anicteric sclerae; no conjunctival abnormality ENMT: Mouth: no oral mucosal abnormality and oral mucous membranes not dry Neck: normal visual inspection and trachea midline Respiratory: normal respiratory effort; no labored breathing Auscultation: + rales (very few scattered at bases) and + wheezes (L>R, UL predominant) Cardiovascular: Rate/Rhythm: regular rate Heart Sounds: normal S1 and normal S2; no murmur Vessels: no JVD Extremities: + edema (significantly improved) Gastrointestinal (Abdomen): Percussion/Palpation: abdomen soft; abdomen nontender Musculoskeletal: Extremities: + hand abnormality (DIP nodules and PIP enlargement); no cyanosis and no clubbing Skin: + turgor decreased; no rashes Neurologic: Motor/Sensory: no tremor and no asterixis Psychiatric: Orientation: alert and oriented x 3 Results & Data ([facility]) Vital Signs (Past 12 Hours) Vital Signs Temp Pulse Pulse Resp BP Pulse Ox 08/30/19 07:24 36.3 C L 77 16 123/68 100 08/30/19 07:00 78 08/30/19 06:57 77 20 97 08/30/19 04:55 36.4 C L 79 20 124/72 100 08/30/19 00:36 36.6 C 90 92 H 20 122/70 98 Laboratory Results Laboratory Results - last 24 hr 08/29/19 08/29/19 08/29/19 11:50 16:57 21:03 Sodium Potassium Chloride Carbon Dioxide Anion Gap BUN Creatinine Est Cr Clr Drug Dosing Est GFR ( Amer) Est GFR (Non-Af Amer) BUN/Creatinine Ratio Glucose POC Glucose 219 H 173 H 169 H Calcium Phosphorus Total Bilirubin AST ALT Alkaline Phosphatase Total Protein Albumin Globulin Albumin/Globulin Ratio 08/30/19 08/30/19 07:30 07:37 Sodium 134 L Potassium 4.2 Chloride 103 Carbon Dioxide 24 Anion Gap 7.0 BUN 70 H Creatinine 4.17 H Est Cr Clr Drug Dosing 12.1 Est GFR ( Amer) 10.9 Est GFR (Non-Af Amer) 9.4 BUN/Creatinine Ratio 16.9 Glucose 106 H POC Glucose 114 H Calcium 9.3 Phosphorus 4.0 Total Bilirubin 0.3 AST 38 H ALT 47 Alkaline Phosphatase 56 Total Protein 5.8 L Albumin 2.9 L Globulin 2.9 Albumin/Globulin Ratio 1.0 PG Care Time/CCT Total # of Minutes Spent Total Time Spent with Patient: Total time spent is greater than 50% in coordination of care (as documented) at patient's floor/unit and/or counseling patient: Coding Level of Care Code 60585 Subseq Hosp Care Lvl 3 Diagnoses NELSON (acute kidney injury) N17.9 Chronic kidney disease, stage V N18.5 SOB (shortness of breath) R06.02 Hypertension I10 Diabetes mellitus, type 2 E11.9 Protein S deficiency D68.59 Anemia D64.9 Rheumatoid arthritis M06.9
--- NOTE | 2019-08-30 11:01 | CT Scan Report ---
CT chest wo con CT DOSE: 824.87 mGy.cm HISTORY: Shortness of breath. Wheezing. Follow-up pulmonary nodule. TECHNIQUE: Multiaxial CT images of the chest were performed without contrast. A dose lowering techni que was utilized adhering to the principles of ALARA. COMPARISON: Chest CT 04/20/2019. FINDINGS: Partial opacification of the right mainstem bronchus, and right lower lobe bronchi. There a re are partially opacified distal left lower lobe bronchi. Mild emphysema. No pneumothorax. Mild inte rlobular septal thickening most pronounced at the lung bases with trace bilateral pleural effusions. This favors mild pulmonary edema. An enlarged and heterogeneous left thyroid lobe is again noted. Thi s favors a multinodular goiter. Stable prominent mediastinal lymph nodes. No definite hilar lymphaden opathy. The heart remains mildly enlarged. Limited views of the upper abdomen demonstrate a normal li héctor and spleen. The adrenal glands are unremarkable. Normal caliber esophagus. There is also a normal caliber thoracic aorta. Stable scarlike density within the left breast with associated surgical clip . Old nonunited right humeral head fracture. Right jugular Port-A-Cath terminates at the distal SVC. No suspicious lytic are blastic osseous lesions. Stable 8 mm groundglass nodule within the right lung apex on image 46. Tiny subpleural nodular density within the left lung apex measuring up to 3 mm als o unchanged. Stable 3 mm subpleural nodule within the left upper lobe on image 84. Linear scarlike de nsity within the lingula. A few bibasilar densities favor subsegmental atelectasis. There are few sca ttered punctate calcified granulomas. Stable linear scarlike density within the right upper and middl e lobes. Groundglass densities at the lung bases may represent mild dependent change or a component o f the pulmonary edema. A pneumonia is considered less likely but not entirely excluded. IMPRESSION: 1. Mild cardiomegaly, trace bilateral pleural effusions, and interlobular septal thickening most pron ounced at the lung bases. This favors mild interstitial pulmonary edema. 2. Mild emphysema. 3. Scattered linear scarlike densities are again noted. 4. Patchy groundglass densities within the lung bases favor mild dependent change or a component of t he pulmonary edema. A pneumonia is considered less likely but not entirely excluded. 5. Small amount of mucoid material within the right mainstem bronchus and right lower lobe bronchi re sulting in partial opacification. This could represent prior aspiration. 6. No change in 8 mm groundglass nodule within the right lung apex. A primary bronchogenic malignancy along the adenocarcinoma spectrum remains the diagnosis of exclusion. 7. Additional findings as described above. ACT 112: Negative or not required by law. Electronically signed by: Abel Broussard M.D. 08/30/2019 11:00 AM
--- NOTE | 2019-08-30 11:38 | Hospitalist Progress Note ---
Date of Service August 30, 2019 Assessment & Plan (1) SOB (shortness of breath): Multifactorial, hypoxic in the upper 80s in the ED-now much improved and not requiring any oxygen even with ambulation. With questionable PNA + COPD exacerbation + CHF exacerbation all contributing. CT Chest noncon on 08/29 with mucus plugging in Rt mainstem bronchus and right lower lobe bronchi, mild pulm edema Now overall improved with starting prednisone and diuresing, treating with azithromycin for bronchitis, but not quite ready to go home -add on Mucinex and flutter valve for mucus plugging -continue DuoNebs standing and PRN - continue Azithromycin PO x 5 day course - Continue prednisone taper down -currently at 20 mg daily -Added melatonin for sleep which may be related to prednisone -give one time dose Bumex 0.5mg po today for weight gain -Do not suspect PE-no right-sided heart failure and no further hypoxia after treatment as above (2) CHF (congestive heart failure): Acute on chronic diastolic CHF, Pulm HTN ECHO here with preserved EF, mild AI, mild MR, elevated RVSP -received IV diuresis and 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 -giving one time po Bumex today for weight gain strict I/Os, daily weights, low Na+ diet -Discussed with nephrology-we will plan to use Bumex 0.5 mg daily only for as needed weight gain and lower extremity edema (3) Asthma exacerbation: as above, improving now nad no wheezing with scheduled bronchodilators and with starting prednisone -Taper down prednisone PFTs 2018 with mild obstructive pattern (4) NELSON (acute kidney injury): Section Repairer up to 4.3 after diuresis, now stable at 4.1-4.2 for several days, other electrolytes are acceptable, volume status is acceptable 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 Doing well; no recurrent symptoms. Ostomy output is at baseline. - Monitor (6) Chronic kidney disease, stage V: Baseline cr 2.8-3.2, 3.1 on admission. Pt states she would not want HD if that became an issue. - Avoid nephrotoxins. (7) Hypertension: BP controlled - Continue beta-tammy (8) Diabetes mellitus, type 2: A1c was 5.9% in 06/2019. 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 - Not on anticoagulation at baseline due to history of frequent bleeding from her ostomy site as well as history of large hematoma while on aspirin and Plavix. - DVT ppx (10) Anemia: Hb on admission 10.1. Hemoglobin remains stable at 9.9 with no s/sx of bleeding. - Monitor Likely anemia of renal disease-may also be contributing to her shortness of breath (11) Rheumatoid arthritis: No present flares. Daily prednisone 5 mg p.o. daily use. - On higher prednisone for breathing as above and will taper back down to home dose of prednisone 5mg daily (12) History of CVA (cerebrovascular accident): No acute CVA concerns. - Continue aspirin 81mg (13) History of DVT (deep vein thrombosis): No current anticoagulation apart from DVT ppx. - Heparin 5000 units SQ Q8h (14) GERD (gastroesophageal reflux disease): continue PPI (15) Vitamin D deficiency: continue vit D (16) Back pain: ongoing x 1 month, can last all day long, mid right back Improved now Relieved with heating pad and is +TTP on examination nothing seen on imaging w/ Renal US -continue heating pad -added voltaren gel prn and hydrocodone prn severe pain (17) DVT prophylaxis: Heparin SQ Dispo-continued stay on med-tele, but hopeful for discharge to home tomorrow if dyspnea improved and renal function stable Admission and Anticipated Discharge Date Admission Date: August 25, 2019 Anticipated date of discharge: 08/31/19 Subjective Still feeling SOB and like she can't get any sputum up. Still not feeling well enough to go home. tele with NSR, rate 70s-90s,PVCs I discussed her care with Neprhology Review of Systems Review of Systems: All systems reviewed & are unremarkable except as noted in HPI & below no chest pain, no further pain in right side of back Physical Exam Constitutional: WD/WN, vitals as above + obese Eyes: + anicteric sclerae Neck: trachea midline, no thyromegaly Respiratory: normal respiratory effort Auscultation: + rhonchi (right middle lung field); no crackles and no wheezes Cardiovascular: Rate/Rhythm: regular rate and regular rhythm Heart Sounds: no murmur Extremities: + edema (trace pitting edema of legs bilat) Chest (Breasts): Chest: normal inspection of chest Gastrointestinal (Abdomen): normal bowel sounds, soft, nontender, no hepatosplenomegaly Musculoskeletal: Extremities: extremities normal to inspection; no cyanosis and no clubbing Skin: no rashes, warm and dry Neurologic: moves all extremities and awake; no focal motor deficits Psychiatric: A+Ox3, euthymic affect Lymphatic: no lymphedema Results & Data Results & Data ([facility]) Vital Signs (Past 12 Hours) Vital Signs Temp Pulse Pulse Resp BP Pulse Ox 08/30/19 11:11 60 14 97 08/30/19 07:24 36.3 C L 77 16 123/68 100 08/30/19 07:00 78 08/30/19 06:57 77 20 97 08/30/19 04:55 36.4 C L 79 20 124/72 100 08/30/19 00:36 36.6 C 90 92 H 20 122/70 98 Laboratory Results 08/30/19 08/30/19 08/30/19 Range/Units 11:39 07:37 07:30 Sodium 134 L (136-145) mmol/L Potassium 4.2 (3.5-5.1) mmol/L Chloride 103 (98-107) mmol/L Carbon Dioxide 24 (21-32) mmol/L Anion Gap 7.0 (3-11) BUN 70 H (7-18) mg/dl Creatinine 4.17 H (0.6-1.2) mg/dl Est Cr Clr Drug Dosing 12.1 ml/min Est GFR ( Amer) 10.9 Est GFR (Non-Af Amer) 9.4 BUN/Creatinine Ratio 16.9 (10-20) Glucose 106 H (70-99) mg/dl POC Glucose 136 H 114 H (70-99) mg/dl Calcium 9.3 (8.5-10.1) mg/dl Phosphorus 4.0 (2.5-4.9) mg/dl Total Bilirubin 0.3 (0.2-1) mg/dl AST 38 H (15-37) U/L ALT 47 (12-78) U/L Alkaline Phosphatase 56 (45-117) U/L Total Protein 5.8 L (6.4-8.2) gm/dl Albumin 2.9 L (3.4-5.0) gm/dl Globulin 2.9 (2.5-4.0) gm/dl Albumin/Globulin Ratio 1.0 (0.9-2) 08/29/19 08/29/19 08/29/19 Range/Units 21:03 16:57 11:50 Sodium (136-145) mmol/L Potassium (3.5-5.1) mmol/L Chloride (98-107) mmol/L Carbon Dioxide (21-32) mmol/L Anion Gap (3-11) BUN (7-18) mg/dl Creatinine (0.6-1.2) mg/dl Est Cr Clr Drug Dosing ml/min Est GFR ( Amer) Est GFR (Non-Af Amer) BUN/Creatinine Ratio (10-20) Glucose (70-99) mg/dl POC Glucose 169 H 173 H 219 H (70-99) mg/dl Calcium (8.5-10.1) mg/dl Phosphorus (2.5-4.9) mg/dl Total Bilirubin (0.2-1) mg/dl AST (15-37) U/L ALT (12-78) U/L Alkaline Phosphatase (45-117) U/L Total Protein (6.4-8.2) gm/dl Albumin (3.4-5.0) gm/dl Globulin (2.5-4.0) gm/dl Albumin/Globulin Ratio (0.9-2) Diagnostic Findings CT Chest reviewed PG Care Time/CCT Total # of Minutes Spent Total Time Spent with Patient: Total time spent is greater than 50% in coordination of care (as documented) at patient's floor/unit and/or counseling patient: Coding Level of Care Code 13614 Subseq Hosp Care Lvl 3 Diagnoses SOB (shortness of breath) R06.02 CHF (congestive heart failure) I50.9 Asthma exacerbation J45.901 Asthma persistence: unspecified Asthma severity: mild NELSON (acute kidney injury) N17.9 SBO (small bowel obstruction) K56.609 Chronic kidney disease, stage V N18.5 Hypertension I10 Diabetes mellitus, type 2 E11.9 Protein S deficiency D68.59 Anemia D64.9 Rheumatoid arthritis M06.9 History of CVA (cerebrovascular accident) Z86.73 History of DVT (deep vein thrombosis) Z86.718 GERD (gastroesophageal reflux disease) K21.9 Vitamin D deficiency E55.9 Back pain M54.9 DVT prophylaxis Z29.9 (1) Asthma exacerbation Asthma persistence: unspecified Asthma severity: mild Qualified Code(s): J45.901 - Unspecified asthma with (acute) exacerbation
[2019-08-30] MEDS ORDERED: BUMETANIDE 1 MG TAB PO ONE (11:39)
[2019-08-30] MEDS: guaiFENesin 600 MG TABCR PO SCH ×2 (12:40→21:18)
[2019-08-30] MEDS: SODIUM BICARBONATE 650 MG TAB PO SCH (17:34)
[2019-08-30] MEDS: INSULIN GLARGINE SOLOSTAR 100 UNITS/ML 3 ML PEN SQ SCH (20:25)
[2019-08-30] MEDS: CALCIUM 600MG + VIT D 400 IU TAB PO SCH (21:18)
[2019-08-30] MEDS: MELATONIN 3 MG TAB PO SCH (21:18)
[2019-08-30] MEDS: ANASTROZOLE 1 MG TAB PO SCH (21:19)
[2019-08-30] MEDS: ASPIRIN 81 MG ECTAB PO SCH (21:19)
[2019-08-31] MEDS: HEPARIN SOD 5,000 UNIT/0.5 ML VIAL SQ SCH ×2 (05:54→13:55)
[2019-08-31 06:37] LABS: Albumin Level 2.9 gm/dl (3.4-5.0); BUN Creatinine Ratio 17.8 (10-20); Calcium 9.4 mg/dl (8.5-10.1); Creatinine Clr Calc Pharmacy 11.9 ml/min; Est GFR (African American) 10.6; Est GFR (Non-African American) 9.2; Potassium 4.2 mmol/L (3.5-5.1)
[2019-08-31 06:40] LABS: Albumin Globulin Ratio 1.1 (0.9-2); Bilirubin,Total 0.3 mg/dl (0.2-1); Globulin 2.7 gm/dl (2.5-4.0); Phosphorus 4.1 mg/dl (2.5-4.9); Total Protein 5.6 gm/dl (6.4-8.2)
[2019-08-31] MEDS: ALBUT/IPRATROP 3MG/0.5MG NEB 3 ML VIAL NEB SCH ×2 (06:58→11:12)
[2019-08-31] MEDS: INSULIN ASPART 100 UNITS/ML 3 ML PEN SC SCH ×2 (08:46→13:54)
[2019-08-31] MEDS: BRIMONIDINE TARTRATE 0.2% 5ML OP SCH (08:49)
[2019-08-31] MEDS: DORZOLAMIDE HCL 2% OPH SOLN 10 ML BTL OPR SCH (08:49)
[2019-08-31] MEDS: METOPROLOL TARTRATE 25 MG TAB PO SCH (08:50)
[2019-08-31] MEDS: FLUTICASONE/VILANTEROL 100/25MCG 14 PUFFS/INHALER INH SCH (08:50)
[2019-08-31] MEDS: PANTOprazole 40 MG TAB PO SCH (08:50)
[2019-08-31] MEDS: guaiFENesin 600 MG TABCR PO SCH (08:50)
[2019-08-31] MEDS: BuPROPion XL 300 MG TABCR PO SCH (08:51)
[2019-08-31] MEDS: FERROUS SULFATE 325 MG TAB PO SCH (08:51)
[2019-08-31] MEDS: CHOLECALCIFEROL 1,000 UNITS 25 MCG TAB PO SCH (08:51)
[2019-08-31] MEDS: AZITHROMYCIN 250 MG TAB PO SCH (08:51)
[2019-08-31] MEDS: predniSONE 20 MG TAB PO SCH (08:51)
[2019-08-31] MEDS: CEROVITE ADV FORMULA TAB PO SCH (08:51)
[2019-08-31] MEDS ORDERED: BUMETANIDE 1 MG TAB PO SCH (09:00)
--- NOTE | 2019-08-31 09:54 | Nephrology Progress Note ---
Date of Service August 31, 2019 Assessment & Plan (1) NELSON (acute kidney injury): Creatinine stable at 4.2 mg/dL. Electrolytes remain within normal limits. Remains on a low dose of oral NaHCO3 replacement. Volume status acceptable. I/O's slightly negative and weight stable. Bumex 0.5 mg PO provided yesterday. Breathing improving. Florencia feels that she is ready to go home. Chest CT was reviewed with Florencia this morning. Interstitial edema, atelectasis, and prominent mucoid secretions are the major findings. The benefits of gentle diuresis with some permissive/tolerable rise in creatinine/BUN were discussed. I told Florencia this morning that I think it is reasonable to consider discharge home on a low dose of diuretic and good pulmonary hygiene regimen with close outpatient follow up. I have requested follow up with Dr. Reyes in the CKD clinic to be scheduled for next week. Medications are appropriately dosed for current kidney function. (2) Chronic kidney disease, stage V: Baseline creatinine 2.8-3.2 mg/dL. CKD IV A3. Non-nephrotic range proteinuria. Attributed to glomerulosclerosis associated with obesity, diabetes mellitus II, smoking history, and hypertension. Follows with Dr. Reyes as an outpatient. Florencia does not want dialysis and has made it clear again today during our conversation that dialysis will not be considered part of her treatment plan in the future. (3) Anemia: Chronic, stable. No need for JESSICA therapy at this time. Admission and Anticipated Discharge Date Admission Date: August 25, 2019 Subjective No acute events overnight. Florencia reports improvement this morning. Breathing has improved. She thinks that she is ready to go home today. No fevers or chills. Able to clear some chest congestion this morning. Activity tolerance better. Review of Systems Review of Systems: All systems reviewed & are unremarkable except as noted in HPI & below Physical Exam Constitutional: well developed and + obese; no acute distress Eyes: + anicteric sclerae; no conjunctival abnormality ENMT: Mouth: no oral mucosal abnormality and oral mucous membranes not dry Neck: normal visual inspection and trachea midline Respiratory: normal respiratory effort; no labored breathing Auscultation: + rales (very few scattered at bases) Cardiovascular: Rate/Rhythm: regular rate Heart Sounds: normal S1 and normal S2; no murmur Extremities: + edema (significantly improved) Gastrointestinal (Abdomen): Percussion/Palpation: abdomen soft; abdomen nontender Musculoskeletal: Extremities: + hand abnormality (DIP nodules and PIP enlargement); no cyanosis and no clubbing Skin: + turgor decreased; no rashes Neurologic: Motor/Sensory: no tremor and no asterixis Psychiatric: Orientation: alert and oriented x 3 Results & Data ([facility]) Vital Signs (Past 12 Hours) Vital Signs Temp Pulse Pulse Resp BP Pulse Ox 08/31/19 07:52 125/72 08/31/19 07:00 72 16 97 08/31/19 04:38 36.4 C L 72 16 130/84 99 08/31/19 01:20 81 08/30/19 22:43 36.7 C 80 16 128/68 93 Laboratory Results Laboratory Results - last 24 hr 08/30/19 08/30/19 08/30/19 11:39 16:29 20:18 Sodium Potassium Chloride Carbon Dioxide Anion Gap BUN Creatinine Est Cr Clr Drug Dosing Est GFR ( Amer) Est GFR (Non-Af Amer) BUN/Creatinine Ratio Glucose POC Glucose 136 H 207 H 91 Calcium Phosphorus Total Bilirubin AST ALT Alkaline Phosphatase Total Protein Albumin Globulin Albumin/Globulin Ratio 08/31/19 08/31/19 05:33 07:47 Sodium 136 Potassium 4.2 Chloride 104 Carbon Dioxide 25 Anion Gap 7.0 BUN 76 H Creatinine 4.26 H Est Cr Clr Drug Dosing 11.9 Est GFR ( Amer) 10.6 Est GFR (Non-Af Amer) 9.2 BUN/Creatinine Ratio 17.8 Glucose 80 POC Glucose 93 Calcium 9.4 Phosphorus 4.1 Total Bilirubin 0.3 AST 40 H ALT 64 Alkaline Phosphatase 63 Total Protein 5.6 L Albumin 2.9 L Globulin 2.7 Albumin/Globulin Ratio 1.1 PG Care Time/CCT Total # of Minutes Spent Total Time Spent with Patient: Total time spent is greater than 50% in coordination of care (as documented) at patient's floor/unit and/or counseling patient: Coding Level of Care Code 32444 Subseq Hosp Care Lvl 3 Diagnoses NELSON (acute kidney injury) N17.9 Chronic kidney disease, stage V N18.5 Anemia D64.9
--- NOTE | 2019-08-31 13:31 | Discharge Summary ---
Date of Service August 31, 2019 Admission HPI Per Admitting Provider 79 y/o F c/o worsening SOB/BUNCH. Pt states that this has been ongoing since her d/c from [facility] on 07/25 after being tx conservatively for SBO. She states it was initially just with exertion, but is now when she is at rest also. She states that she takes bumex daily, but is having ongoing LE swelling. She states she is not making as much urine as she would expect to with the bumex. She has occasional chest pressure with SOB, but no chantell pain. Pt denies fever, abd pain, n/v/c/d, LE pain. Pt was given nebs in the ED and feels better at rest, but an attempt to ambulate to the bathroom resulted in severe BUNCH and O2 desats in the 80s. Pt states automated BP cuffs lead to elevated pressures. BP with manual cuffs are WNL for her. Principal Diagnosis Dyspnea-multifactorial secondary to acute CHF, NELSON in the setting of CKD stage IV, and acute bronchitis with mucous plugging Acute respiratory failure with hypoxia-resolved Discharge Exam Constitutional WD/WN, vitals as above + obese Eyes + anicteric sclerae Neck trachea midline, no thyromegaly Respiratory normal respiratory effort, lungs clear to auscultation normal respiratory effort Auscultation: + rhonchi (right middle lung field); no crackles and no wheezes Cardiovascular RRR, no murmur, no edema Rate/Rhythm: regular rate and regular rhythm Heart Sounds: no murmur Extremities: + edema (trace pitting edema of legs bilat) Chest (Breasts) Chest: normal inspection of chest Gastrointestinal (Abdomen) normal bowel sounds, soft, nontender, no hepatosplenomegaly Musculoskeletal Extremities: extremities normal to inspection; no cyanosis and no clubbing Skin no rashes, warm and dry Neurologic moves all extremities and awake; no focal motor deficits Psychiatric A+Ox3, euthymic affect Lymphatic no lymphedema Discharge Data Allergies Allergy/AdvReac Type Severity Reaction Status Date / Time Bactrim Allergy Severe dizzy,dyseq Verified 10/26/17 14:59 uilibrium bee venom protein (honey bee) Allergy Severe ANAPHYLAXIS Verified 08/25/19 15:04 cefaclor Allergy Severe stiff and Verified 08/25/19 15:04 sore muscles-PT DENIES lisinopril Allergy Severe tongue Verified 08/25/19 15:04 swelling diltiazem Allergy Intermediate rash Verified 08/25/19 15:04 Penicillins Allergy Mild RASH Verified 08/25/19 15:04 tetracycline Allergy Mild UNK-PT Verified 08/25/19 15:04 DENIES amoxicillin Allergy Unknown RASH Verified 08/25/19 15:04 baclofen Allergy Unknown Unknown Verified 08/25/19 15:04 cefuroxime Allergy Unknown TAST Verified 08/25/19 15:04 clavulanic acid Allergy Unknown ITCHING Verified 08/25/19 15:04 levofloxacin Allergy Unknown NAUSEA, Verified 08/25/19 15:04 DIZZINESS alendronate sodium AdvReac Intermediate FELT SICK Verified 08/25/19 15:04 Cipro AdvReac Intermediate LEGS ARMS Verified 10/26/17 14:59 STIFF, PAINFUL ciprofloxacin AdvReac Intermediate LEGS ARMS Verified 08/25/19 15:04 STIFF, PAINFUL doxycycline AdvReac Intermediate nausea and Verified 08/25/19 15:04 vomiting metformin AdvReac Intermediate CAUSED Verified 08/25/19 15:04 BACK PAIN [employer]. LACTIC ACID LEVELS tramadol AdvReac Intermediate DIZZINESS Verified 08/25/19 15:04 adhesive AdvReac Mild redness Verified 08/25/19 15:04 mercaptopurine AdvReac Mild MADE HER Verified 08/25/19 15:04 VERY ILL olmesartan AdvReac Mild HEADACHE Verified 08/25/19 15:04 Sulfa (Sulfonamide AdvReac Mild CAUSED Verified 08/25/19 15:04 Antibiotics) DIZZINESS sulfamethoxazole AdvReac Mild CAUSED Verified 08/25/19 15:04 DIZZINESS trimethoprim AdvReac Mild BACTRIM Verified 08/25/19 15:04 CAUSED DIZZINESS aspirin AdvReac Unknown CAUSES Verified 08/25/19 15:04 BRUISING Consultations 08/25/19 19:36 [facility] CHF Program Referral Routine 08/27/19 09:40 Consult Nephrology Routine Ordered Studies 08/25/19 14:22 US venous doppler LE BI Stat 08/28/19 09:01 US renal/blad retro comp Routine 08/30/19 10:30 CT chest wo con Urgent Chest x-ray Hospital Course (1) SOB (shortness of breath): Multifactorial, hypoxic in the upper 80s in the ED-now much improved and not requiring any oxygen even with ambulation. With questionable PNA + COPD exacerbation + CHF exacerbation all contributing as well as acute kidney injury in the setting of CKD stage IV with volume overload. CT Chest noncon on 08/29 with mucus plugging in Rt mainstem bronchus and right lower lobe bronchi, mild pulm edema Now overall improved with starting prednisone and diuresing, treating with azithromycin for bronchitis, and flutter valve and Mucinex for mucus plugging -Continue Mucinex and flutter valve for mucus plugging -Received DuoNebs, go home with albuterol every 4 to 6 hours as needed -Completed azithromycin PO x 5 day course - Continue prednisone taper down -currently at 20 mg daily for 1 more day and then 10 mg daily for 2 days and then back to 5 mg daily which is chronic -Treated with IV Bumex initially with rising creatinine, now will do Bumex 0.5 mg daily as needed for weight gain greater than 2 pounds -Do not suspect PE-no right-sided heart failure and no further hypoxia after treatment as above (2) CHF (congestive heart failure): Acute on chronic diastolic CHF, Pulm HTN ECHO here with preserved EF, mild AI, mild MR, elevated RVSP -received IV diuresis and then placed on hold due to rising emergency worker -Improved with intermittent doses of low-dose Bumex strict I/Os, daily weights, low Na+ diet -Discussed with nephrology-we will plan to use Bumex 0.5 mg daily only for as needed weight gain and lower extremity edema (3) Asthma exacerbation: as above, improving now and no wheezing with scheduled bronchodilators and with starting prednisone -Taper down prednisone as above -Continue Symbicort and albuterol as needed PFTs 2018 with mild obstructive pattern (4) NELSON (acute kidney injury): Stripe Matcher up to 4.3 after diuresis, now stable at 4.1-4.2 for several days, other electrolytes are acceptable, volume status is acceptable Baseline emergency worker 2.7 held bumex and now will use as needed weight gain or lower extremity edema as above -Appreciate Nephro consult -continue NaHCO3 -no acute indication for HD and pt declines such anyway -Check BMP in 1 week and follow-up with nephrology as an outpatient (5) SBO (small bowel obstruction): Recent admission for this, d/c 07/25. Doing well; no recurrent symptoms. Ostomy output is at baseline. - Monitor (6) Chronic kidney disease, stage V: Baseline cr 2.8-3.2, 3.1 on admission. Pt states she would not want HD if that became an issue. - Avoid nephrotoxins. (7) Hypertension: BP controlled - Continue beta-tammy (8) Diabetes mellitus, type 2: A1c was 5.9% in 06/2019. 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 - Not on anticoagulation at baseline due to history of frequent bleeding from her ostomy site as well as history of large hematoma while on aspirin and Plavix. - DVT ppx (10) Anemia: Hb on admission 10.1. Hemoglobin remains stable at 9.9 with no s/sx of bleeding. - Monitor Likely anemia of renal disease-may also be contributing to her shortness of breath (11) Rheumatoid arthritis: No present flares. Daily prednisone 5 mg p.o. daily use. - On higher prednisone for breathing as above and will taper back down to home dose of prednisone 5mg daily (12) History of CVA (cerebrovascular accident): No acute CVA concerns. - Continue aspirin 81mg (13) History of DVT (deep vein thrombosis): No current anticoagulation apart from DVT ppx. - Heparin 5000 units SQ Q8h (14) GERD (gastroesophageal reflux disease): continue PPI (15) Vitamin D deficiency: continue vit D (16) Back pain: ongoing x 1 month, can last all day long, mid right back Improved now Relieved with heating pad and is +TTP on examination nothing seen on imaging w/ Renal US -continue heating pad -added voltaren gel prn (17) DVT prophylaxis: Heparin SQ Dispo-stable for discharged home Total Time Total Time Spent Total Time Spent (In Minutes): Greater than 30 minutes Total Time Includes: Examination of the Patient, Discharge Planning and Medication Reconciliation Discharge Plan Discharge Items Patient Disposition: Home - Home Health Services Reason For Visit: COPD/PNA/CHF EXACERBATION Discharge Diagnosis: Acute kidney injury in the setting of chronic kidney disease, acute CHF exacerbation, acute bronchitis Condition on Discharge: Fair Activity: As commented below Bathing: No limitations Exercise/Sports: Gradually increase as tolerated Weightbearing: Full weightbearing Non-emergency contact: Primary Care Provider and Expander Machine Operator Call non-emergency contact if: you have any medication questions and your symptoms worsen Follow-up/Referrals: Shant Reyes MD [Physician] - (Please follow-up with Dr. Reyes within 1 to 2 weeks with blood work done prior to your appointment.) Se Tovar MD [Primary Care Provider] - 09/01/19 10:10 am (Please, follow up at Dr. Tovar' office with his associate, Dr. Foy, on WednesdayAugust 31 at 10:10 am. *If you need to change this appointment, call their office at [phone].) Diet: Carb Consistent or DM2 and Low Sodium (2gm) Ambulatory Orders: Basic Metabolic Panel (Routine) Timeframe: 1 Week Location: Determined by Patient Ordered By: Carole Sherwood Attending Provider Instructions: Please take your Bumex 0.5 mg by mouth once daily only as needed for weight gain of 2 pounds or more from 1 day to the next. Follow-up with Dr. Reyes with blood work in 1 week to check your kidney function. Please continue to use the flutter valve 3-4 times a day to get mucus out of your lungs. You completed your course of antibiotics and you can continue your inhalers as prescribed. Please follow-up with your primary care physician as scheduled for you. Call your Primary Care doctor if any of the following symptoms or problems start or get worse: * Shortness of breath or difficulty breathing * Wake up at night short of breath * Chest pain * Cough * Swelling of your hands, feet, or legs * More fatigued or tired with your normal activity * Palpitations - sudden fast heart beats WEIGHT * Weigh yourself every morning after using the bathroom. * Use the same scale. * Wear the same amount of clothing. * Write your weight down on a chart. * Call your Primary Care doctor if you gain more than 2-3 pounds in 1-2 days. MEDICATIONS * Use this discharge instruction sheet for medication instructions. * Take your medications at the time your doctor ordered. * Do not skip a dose of your medicines. * If you miss a dose of medicine, take it as soon as possible, but DO NOT DOUBLE A DOSE. * Read your medicine information when you get home. * Know all of the side effects of your medicine. If in doubt, ask your pharmacist * Call your Primary Care doctor's office if you have any side effects. * Be sure all of your doctors know what medicine and herbs you take (including cold, flu, and herbal medicine). Take the following with you to your follow-up doctor appointments: * Weight Chart * Medication List * List of questions Do not drink excessive alcohol, beer or wine. Pending Studies at Discharge: No Stand-Alone Forms: [facility] Medications and DC Order Prescriptions: New diclofenac sodium [Voltaren] 1 % Gel 2 g EXT QID PRN (Reason: back pain) Qty: 100 RF: 0 prednisone 20 mg Tablet 20 mg PO QAM Qty: 2 RF: 0 guaifenesin [Mucinex] 600 mg Tablet Extended Release 12hr 1,200 mg PO Q12 Qty: 30 RF: 0 Desenex 2 % Powder 1 applic EXT PRN PRN (Reason: Rash under skin folds) Qty: 43 RF: 0 Continued albuterol sulfate [Ventolin HFA] 90 mcg/actuation HFA aerosol inhaler 2 - 4 puff INHALATION QID PRN (Reason: Shortness Of Breath Or Wheezing) Qty: 3 RF: 3 Symbicort 80-4.5 mcg/actuation HFA aerosol inhaler 2 puff INHALATION BID Qty: 3 RF: 3 zafirlukast [Accolate] 20 mg tablet 20 mg PO Q12H Qty: 180 RF: 3 bupropion HCl 300 mg tablet extended release 24 hr 300 mg PO QAM RF: 0 brimonidine 0.2 % drops 1 drp OPB BID RF: 0 dorzolamide 2 % drops 1 drp OPR BID RF: 0 ferrous sulfate 325 mg (65 mg iron) Tablet 325 mg PO BID Qty: 0 RF: 0 anastrozole 1 mg Tablet 1 mg PO QPM RF: 0 aspirin [Aspirin Low Dose] 81 mg Tablet,Delayed Release (Dr/Ec) 81 mg PO QPM RF: 0 multivitamin with minerals Tablet 1 tab PO QAM RF: 0 cholecalciferol (vitamin D3) 5,000 unit Capsule 5,000 unit PO QAM RF: 0 metoprolol tartrate 25 mg Tablet 12.5 mg PO BID RF: 0 calcium carbonate-vitamin D3 [Os-Conrad 500 + D3] 500 mg(1,250mg) -200 unit Tablet 1 tab PO QPM RF: 0 Lantus Solostar U-100 Insulin 100 unit/mL (3 mL) Insulin Pen 8 unit SUBCUT HS RF: 0 prednisone 5 mg Tablet 5 mg PO QAM RF: 0 pantoprazole 40 mg Tablet,Delayed Release (Dr/Ec) 40 mg PO QAM RF: 0 acetaminophen [Tylenol Extra Strength] 500 mg Tablet 500 mg PO Q6H PRN (Reason: Pain) RF: 0 sodium bicarbonate 650 mg tablet 650 mg PO QDD RF: 0 Changed bumetanide 0.5 mg tablet 0.5 mg PO DAILY PRN (Reason: Weight gain of 2 pounds in 24 hours) Qty: 0 RF: 0 Discharge Orders: Discharge Order (Routine); Ordered 08/31/19 Ordered By: Carole Jha Admission Data Admit Date/Time: 08/25/19 18:21 Attending Provider: Carole Jha Admit Provider: Kathie Young Primary Care Provider: Se Tovar Other Providers: Estela Alvares ; Shankar Jean ; [facility] Coding Level of Care Code D/C Day Management >30 mins Diagnoses SOB (shortness of breath) R06.02 CHF (congestive heart failure) I50.9 Asthma exacerbation J45.901 Asthma persistence: unspecified Asthma severity: mild NELSON (acute kidney injury) N17.9 SBO (small bowel obstruction) K56.609 Chronic kidney disease, stage V N18.5 Hypertension I10 Diabetes mellitus, type 2 E11.9 Protein S deficiency D68.59 Anemia D64.9 Rheumatoid arthritis M06.9 History of CVA (cerebrovascular accident) Z86.73 History of DVT (deep vein thrombosis) Z86.718 GERD (gastroesophageal reflux disease) K21.9 Vitamin D deficiency E55.9 Back pain M54.9 DVT prophylaxis Z29.9
[2019-08-31] MEDS: HEPARIN 100 UNIT/ML 5ML FLUSH FLUSH PRN (14:10)
== END 2019-08-31 14:34 | disposition home health service (06) | DRG 291 ==
LOC: ED 13:15 → 2N 18:21 → SUATTDRO 18:21 → 2N 19:00

== ENCOUNTER 2019-10-13 17:32 | Inpatient (IN) ==
[2019-10-13] MEDS ORDERED: ALBUT/IPRATROP 3MG/0.5MG NEB 3 ML VIAL NEB STA (18:30)
--- NOTE | 2019-10-13 18:37 | Emergency Department Note ---
History of Present Illness General Chief complaint: Swelling/Edema to Extremity Stated complaint: SWELLING IN LEGS Time Seen by Provider: 10/13/19 18:23 History of Present Illness Provider complaint: Leg swelling and difficulty breathing Onset (ago): month(s) 1 Location: chest and lower extremity Radiation: non-radiation Severity: mild Pain Consistency: + intermittent Current Pain Intensity: 0 Quality: + other (Pressure in the chest) Relieved By: + none Exacerbated By: + none Associated symptoms: + chest pain (Exertional), + cough and + shortness of breath; no fever/chills, no headaches and no nausea/vomiting 79-year-old female with history of congestive heart failure, DVT, ileostomy, breast cancer, CKD presents emergency department with bilateral lower extremity swelling and shortness of breath. Patient states her symptoms been going on for the last month. She states she has been having increasing swelling of her bilateral lower extremities. She also reports a difficulty with breathing is w orse with exertion. She states that when she does do any sort of light activity she begins having chest pain that feels like pressure and resolves with rest. She also reports pillow orthopnea. Patient states her symptoms been going on for the last month. She states she sees her scorer single who increased her Bumex to twice daily last week but she states it has not made any significant difference in her swelling or breathing capabilities. Home Medications Home Medications Medication Instructions Recorded Confirmed Type Lantus Solostar U-100 Insulin 8 unit SUBCUT HS 11/22/17 10/13/19 History anastrozole 1 mg PO QPM 11/22/17 10/13/19 History aspirin [Aspirin Low Dose] 81 mg PO QPM 11/22/17 10/13/19 History calcium carbonate-vitamin D3 1 tab PO QPM 11/22/17 10/13/19 History [Os-Conrad 500 + D3] cholecalciferol (vitamin D3) 5,000 unit PO QAM 11/22/17 10/13/19 History metoprolol tartrate 12.5 mg PO BID 11/22/17 10/13/19 History multivitamin with minerals 1 tab PO QAM 11/22/17 10/13/19 History pantoprazole 40 mg PO QAM 11/22/17 10/13/19 History prednisone 5 mg PO QAM 11/22/17 10/13/19 History brimonidine 1 drp OPB BID 06/22/18 10/13/19 History dorzolamide 1 drp OPR BID 06/22/18 10/13/19 History ferrous sulfate 325 mg PO BID #0 tab 06/25/18 10/13/19 Rx budesonide-formoterol HFA 80 2 puff INHALATION BID #3 inhaler 02/01/19 10/13/19 Rx mcg-4.5 mcg/actuation aerosol inhaler zafirlukast 20 mg tablet 20 mg PO Q12H #180 tab 02/01/19 10/13/19 Rx albuterol sulfate 90 mcg/actuation 2 - 4 puff INHALATION QID PRN #3 02/15/19 10/13/19 Rx aerosol inhaler inhaler bupropion HCl 300 mg 24 hr tablet, 300 mg PO QAM tab 03/06/19 10/13/19 History extended release acetaminophen [Tylenol Extra 500 mg PO Q6H PRN 08/25/19 10/13/19 History Strength] diclofenac sodium [Voltaren] 2 g EXT QID PRN #100 gm 08/31/19 10/13/19 Rx guaifenesin [Mucinex] 1,200 mg PO Q12 #30 tab 08/31/19 10/13/19 Rx miconazole nitrate [Desenex] 1 applic EXT PRN PRN #43 gm 08/31/19 10/13/19 Rx sodium bicarbonate 650 mg tablet 650 mg PO BID tab 09/13/19 10/13/19 History bumetanide 1 mg PO DAILY PRN 10/13/19 10/13/19 History Allergies Allergy/AdvReac Type Severity Reaction Status Date / Time Bactrim Allergy Severe dizzy,dyseq Verified 10/26/17 14:59 uilibrium bee venom protein (honey bee) Allergy Severe ANAPHYLAXIS Verified 10/13/19 19:30 cefaclor Allergy Severe stiff and Verified 10/13/19 19:30 sore muscles-PT DENIES lisinopril Allergy Severe tongue Verified 10/13/19 19:30 swelling diltiazem Allergy Intermediate rash Verified 10/13/19 19:30 Penicillins Allergy Mild RASH Verified 10/13/19 19:31 tetracycline Allergy Mild UNK-PT Verified 10/13/19 19:31 DENIES amoxicillin Allergy Unknown RASH Verified 10/13/19 19:31 baclofen Allergy Unknown Unknown Verified 10/13/19 19:32 cefuroxime Allergy Unknown TAST Verified 10/13/19 19:32 clavulanic acid Allergy Unknown ITCHING Verified 10/13/19 19:32 levofloxacin Allergy Unknown NAUSEA, Verified 10/13/19 19:32 DIZZINESS alendronate sodium AdvReac Intermediate FELT SICK Verified 10/13/19 19:33 Cipro AdvReac Intermediate LEGS ARMS Verified 10/26/17 14:59 STIFF, PAINFUL ciprofloxacin AdvReac Intermediate LEGS ARMS Verified 10/13/19 19:33 STIFF, PAINFUL doxycycline AdvReac Intermediate nausea and Verified 10/13/19 19:33 vomiting metformin AdvReac Intermediate CAUSED Verified 10/13/19 19:33 [employer] LACTIC ACID LEVELS tramadol AdvReac Intermediate DIZZINESS Verified 10/13/19 19:34 adhesive AdvReac Mild redness Verified 10/13/19 19:34 mercaptopurine AdvReac Mild MADE HER Verified 10/13/19 19:34 VERY ILL olmesartan AdvReac Mild HEADACHE Verified 10/13/19 19:34 Sulfa (Sulfonamide AdvReac Mild CAUSED Verified 10/13/19 19:35 Antibiotics) DIZZINESS sulfamethoxazole AdvReac Mild CAUSED Verified 10/13/19 19:35 DIZZINESS trimethoprim AdvReac Mild BACTRIM Verified 10/13/19 19:35 CAUSED DIZZINESS aspirin AdvReac Unknown CAUSES Verified 10/13/19 19:35 BRUISING Past Med/Surg History Medical History Acute osteomyelitis (06/05/01) "MRSA of the thoracic spine " On 02/05/12 10:49 Wilfredo Melendez wrote "MRSA of the thoracic spine " Asthma Breast cancer, left breast X2--1ST)2005 2)2012---SX,RADIATION Chronic back pain Chronic kidney disease, stage V CKD (chronic kidney disease) Deep vein thrombosis L LEG Fibromyalgia GERD (gastroesophageal reflux disease) Glaucoma BILT EYES Hyperlipidemia Hypertension Pneumonia, organism unspecified (02/05/12) Protein S deficiency Rheumatoid arthritis Spinal stenosis Stroke 07/2017--DIFFICULTY WALKING Trigeminal neuralgia Ulcerative colitis Vitamin D deficiency Surgical History H/O bilateral cataract extraction H/O right inguinal hernia repair History of appendectomy [place] of [place] [facility] [place] of breast biopsy LEFT MALIGNANT X2 History of colonoscopy History of esophagogastroduodenoscopy (EGD) History of gastric surgery 2012---ABCESS ON STOMACH WALL History of lumpectomy of left breast X2 2005 WITH LYMPH NODE REMOVAL, 2012 History of tooth extraction ALL TEETH Family History Brother Family history of diabetes mellitus 2 BROTHERS Mother Family hx of colon cancer Father Family hx of colon cancer Social History Smoking Status: Former smoker Tobacco Type: Cigarettes Second Hand Exposure: Yes ( SMOKED); Hx Alcohol Use: No Hx Substance Use: No Preferred Language: Thai Communication Ability: Effective 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 Feels Safe at Home: Yes Review of Systems A total of 10 systems reviewed and were otherwise negative Physical Exam Vital Signs Vital Signs - 24 hr 10/13/19 17:38 10/13/19 18:44 10/13/19 18:45 Temperature 36.6 C Temperature Source Oral Pulse Rate 80 Pulse Rate [Right Finger] 78 Respiratory Rate 20 20 Respiratory Effort / Characteristics Non-Labored Spontaneous Spontaneous Respiratory Depth Normal Respiratory Pattern Regular Blood Pressure 182/87 H Blood Pressure [Right Arm] Blood Pressure Mean 118 Blood Pressure Mean [Right Arm] Pulse Oximetry 97 96 Oxygen Delivery Method Room Air Room Air Room Air Sepsis Recent Fever Within 48 Hours No Sepsis New/Unexplained Change in Mental Status N/A Sepsis Action Taken by Nursing No Action Required 10/13/19 19:32 Temperature Temperature Source Pulse Rate Pulse Rate [Right Finger] Respiratory Rate Respiratory Effort / Characteristics Respiratory Depth Respiratory Pattern Blood Pressure Blood Pressure [Right Arm] 211/101 H Blood Pressure Mean Blood Pressure Mean [Right Arm] 137 Pulse Oximetry Oxygen Delivery Method Sepsis Recent Fever Within 48 Hours Sepsis New/Unexplained Change in Mental Status Sepsis Action Taken by Nursing Physical Exam GENERAL: She is oriented to person, place, and time. She appears well-developed and well-nourished. She does not appear distressed. HENT: Exam performed. -Head: Normocephalic and atraumatic. -Right Ear: External ear normal. No mastoid tenderness. -Left Ear: External ear normal. No mastoid tenderness. -Mouth/Throat: The oropharynx is clear and moist. No trismus in the jaw. No dental abscesses or uvula swelling. No oropharyngeal exudate or tonsillar abscesses. EYES: Conjunctivae and EOM are normal. Pupils are equal, round, and reactive to light. Right eye exhibits no discharge. Left eye exhibits no discharge. No scleral icterus. NECK: Normal range of motion. Neck supple. No JVD present. No spinous process tenderness present. No carotid bruit present. No rigidity. No tracheal deviation and normal range of motion present. No Brudzinski's sign and no Kernig's sign noted. CV: Normal rate, regular rhythm, normal heart sounds and intact distal pulses. There is 4+ pitting edema of the bilateral lower extremities. Palpable radial pulses bue. PULM/CHEST: Expiratory wheezes at the bases bilaterally and inspiratory rales bilaterally. ABD: Ostomy bag present. The abdomen is soft. Bowel sounds are normal. She has no distension. No mass is present. There is no tenderness. There is no rebound, no guarding, no Mojica's sign and no tenderness at McBurney's point. Rovsig negative MUSC/SKEL: Normal range of motion. 4+ pitting edema of the bilateral lower extremities. LYMPH: No cervical adenopathy. NEURO: She is alert and oriented to person, place, and time. She has normal strength. No cranial nerve deficit or sensory deficit. Coordination and gait normal. GCS eye subscore is 4. GCS verbal subscore is 5. GCS motor subscore is 6. Cerebellar tests wnl. SKIN: Skin is warm and dry. She is not diaphoretic. PSYCH: She has a normal mood and affect. Behavior is normal. Judgment and thought content normal. Course Course 1822: The patient was evaluated in room C7. A complete history and physical exam was performed. Cardiac monitoring: An order was placed for continuous cardiac monitoring. The monitor shows a rate of 85 with sinus rhythm 2119: Labs show an elevated proBNP. Creatinine at baseline. Chest x-ray shows cardiomegaly with fluid overload. [facility]. He recommended giving the patient Bumex 2 mg. Patient is agreement to be admitted. Administered Medications Discontinued Medications Albuterol (Albut/Ipratrop 3mg/0.5mg Neb 3 Ml Vial) 3 ml NEB NOW STA Stop: 10/13/19 18:31 Last Admin: 10/13/19 18:42 Dose: 3 ml Documented by: [id number] Bumetanide 2 mg/ Syringe 8 mls @ 4 mls/min IV ONE ONE Stop: 10/13/19 21:39 Last Admin: 10/14/19 00:17 Dose: 4 mls/min Documented by: [id number] Morphine Sulfate (Morphine Sulfate 2 Mg/Ml Carp) 2 mg IV NOW STA Stop: 10/13/19 21:22 Last Admin: 10/13/19 21:26 Dose: 2 mg Documented by: [id number] Medical Decision Making Laboratory Data Result diagrams: 10/13/19 20:30 10/13/19 20:30 Lab Results 10/13/19 10/13/19 10/13/19 Range/Units 20:30 20:30 20:30 WBC 6.80 (4.8-10.8) K/uL RBC 3.35 L (4.2-5.4) M/uL Hgb 10.3 L (12.0-16.0) g/dL Hct 32.9 L (37-47) % MCV 98.2 (80-100) fL MCH 30.7 (25-34) pg MCHC 31.3 L (32-36) g/dL RDW Std Deviation 48.8 H (36.4-46.3) fL RDW Coeff of Michelle 13.6 (11.5-14.5) % Plt Count 217 (130-400) K/uL MPV 10.1 (7.4-10.4) fL Immature Gran % (Auto) 0.1 % Neut % (Auto) 68.6 % Lymph % (Auto) 18.2 % Drew % (Auto) 10.0 % Eos % (Auto) 2.8 % Baso % (Auto) 0.3 % Neut # (Auto) 4.66 (1.4-6.5) K/uL Lymph # (Auto) 1.24 (1.2-3.4) K/uL Drew # (Auto) 0.68 H (0.11-0.59) K/uL Eos # (Auto) 0.19 (0-0.5) K/uL Baso # (Auto) 0.02 (0-0.2) K/uL Immature Gran # (Auto) 0.01 (0.00-0.02) K/uL PT 10.4 (9.0-12.0) Seconds INR 1.0 (0.9-1.1) APTT 22.3 (21.0-31.0) Seconds PTT Ratio 0.8 Sodium 138 (136-145) mmol/L Potassium 4.0 (3.5-5.1) mmol/L Chloride 108 H (98-107) mmol/L Carbon Dioxide 22 (21-32) mmol/L Anion Gap 7.0 (3-11) BUN 39 H (7-18) mg/dl Creatinine 3.53 H (0.6-1.2) mg/dl Est Cr Clr Drug Dosing 14.2 ml/min Est GFR ( Amer) 13.3 Est GFR (Non-Af Amer) 11.5 BUN/Creatinine Ratio 11.0 (10-20) Glucose 125 H (70-99) mg/dl Calcium 9.1 (8.5-10.1) mg/dl Troponin I 0.026 (0-0.045) ng/ml NT-Pro-B Natriuret Pep 03956 H (0-1800) pg/ml Lipase 53 L (73-393) U/L Imaging Data Radiologist's Impression: XR chest 1V portable HISTORY: 79 years-old Female Chest Pain acute atypical chest pain COMPARISON: Chest CT 08/30/2019, chest radiograph 08/27/2019 TECHNIQUE: Portable AP view of the chest FINDINGS: Cardiac silhouette is enlarged. Pulmonary vascular congestion. Linear right midlung atelectasis/scarring. Trace pleural effusions with mild left greater than right bibasilar opacities. No pneumothorax. Degenerative changes of the spine and left shoulder. Remote right proximal humerus fracture deformity. IMPRESSION: 1. Cardiomegaly with pulmonary vascular congestion. 2. Trace pleural effusions with mild bibasilar opacities favoring probable atelectasis. ACT 112: Negative or not required by law. The above report was generated using voice recognition software. It may contain grammatical, syntax or spelling errors. Electronically signed by: Rodolfo Cavanaugh M.D. 10/13/2019 7:24 PM Dictated: 10/13/191922 Transcribed: 10/13/191922 ECG Data Indication: + SOB/dyspnea Rate (beats per minute): 85 Rhythm: + normal sinus ECG Intervals/blocks: + Normal QRS, + Normal FL and + Normal QT-c ECG ST segments: + Normal ST segments [facility] Narrative 1823: The patient was evaluated in room C7. A complete history and physical exam was performed. Cardiac monitoring: An order was placed for continuous cardiac monitoring. The monitor shows a rate of 85 with sinus rhythm 2119: Labs show an elevated proBNP. Creatinine at baseline. Chest x-ray shows cardiomegaly with fluid overload. Discussed the case with Dr. [facility] hospitalist who agreed to admit the patient. He recommended giving the patient Bumex 2 mg. Patient is agreement to be admitted. Impression & Plan Acute exacerbation of CHF (congestive heart failure) Discharge Plan Visit Data Chief Complaint: Swelling/Edema to Extremity Stated Complaint: SWELLING IN LEGS ED Provider: Manolo Mc Discharge Problem: Acute exacerbation of CHF (congestive heart failure) Patient Disposition: Admitted As Inpatient Discharge Instructions Interventions: ED Discharge Assessment Last Done: 10/14/19 00:32 Discharge Problem: Acute exacerbation of CHF (congestive heart failure) Qualifiers: Heart failure type: unspecified Qualified Code(s): I50.9 - Heart failure, unspecified
--- NOTE | 2019-10-13 19:25 | XRay Report ---
XR chest 1V portable HISTORY: 79 years-old Female Chest Pain acute atypical chest pain COMPARISON: Chest CT 08/30/2019, chest radiograph 08/27/2019 TECHNIQUE: Portable AP view of the chest FINDINGS: Cardiac silhouette is enlarged. Pulmonary vascular congestion. Linear right midlung atelectasis/scarr ing. Trace pleural effusions with mild left greater than right bibasilar opacities. No pneumothorax. Degenerative changes of the spine and left shoulder. Remote right proximal humerus fracture deformity . IMPRESSION: 1. Cardiomegaly with pulmonary vascular congestion. 2. Trace pleural effusions with mild bibasilar opacities favoring probable atelectasis. ACT 112: Negative or not required by law. The above report was generated using voice recognition software. It may contain grammatical, syntax o r spelling errors. Electronically signed by: Rodolfo Cavanaugh M.D. 10/13/2019 7:24 PM
[2019-10-13 20:44] LABS: Basophils # (auto) 0.02 K/uL (0-0.2); Basophils % (auto) 0.3 %; Eosinophils # (auto) 0.19 K/uL (0-0.5); Eosinophils % (auto) 2.8 %; Hematocrit (blood only) 32.9 % (37-47); Hemoglobin 10.3 g/dL (12.0-16.0); Immature Granulocytes # (auto) 0.01 K/uL (0.00-0.02); Immature Granulocytes % (auto) 0.1 %; Lymphocytes # (auto) 1.24 K/uL (1.2-3.4); Lymphocytes % (auto) 18.2 %; Mean Corpuscular Hemoglobin 30.7 pg (25-34); Mean Corpuscular Hgb Conc 31.3 g/dL (32-36); Mean Corpuscular Volume 98.2 fL (80-100); Mean Platelet Volume 10.1 fL (7.4-10.4); Monocytes # (auto) 0.68 K/uL (0.11-0.59); Neutrophils # (auto) 4.66 K/uL (1.4-6.5); Neutrophils % (auto) 68.6 %; Platelet Count 217 K/uL (130-400); RDW Coefficient of Variation 13.6 % (11.5-14.5); RDW Standard Deviation 48.8 fL (36.4-46.3); Red Blood Count 3.35 M/uL (4.2-5.4)
[2019-10-13 20:57] LABS: Partial Thromboplastin Ratio 0.8; Partial Thromboplastin Time 22.3 Seconds (21.0-31.0); Prothrombin Time 10.4 Seconds (9.0-12.0)
[2019-10-13 21:03] LABS: Calcium 9.1 mg/dl (8.5-10.1); Creatinine Clr Calc Pharmacy 14.2 ml/min; Est GFR (African American) 13.3; Est GFR (Non-African American) 11.5
[2019-10-13 21:08] LABS: Troponin I 0.026 ng/ml (0-0.045)
[2019-10-13] MEDS ORDERED: MoRPHine SULFATE 2 MG/ML CARP IV STA (21:21)
[2019-10-13] MEDS ORDERED: BUMETANIDE 2 MG in SYRINGE 0 ML IV ONE (21:38)
[2019-10-13] MEDS ORDERED: DAPTOMYCIN CONSULT ACTIVE PRN (22:54)
--- NOTE | 2019-10-13 22:57 | History & Physical Report ---
Date of Service October 13, 2019 Assessment & Plan (1) Acute exacerbation of CHF (congestive heart failure): Hold oral Bumex. Given Bumex 2 mg IV x1 by the ED. Place on Bumex 1 mg IV twice daily Continue aspirin 81 mg daily, and metoprolol tartrate 12.5 mg p.o. twice daily Present on Admission?: Yes (2) Cellulitis of both lower extremities: Cellulitis of bilateral lower extremities, left > right- Place on daptomycin IV and aztreonam IV. Continue to work on diuresis. Present on Admission?: Yes (3) Depression: Continue bupropion extended release 300 mg p.o. every morning Present on Admission?: Yes (4) Rheumatoid arthritis: Continue prednisone 5 mg p.o. every morning. Monitor for potential need for stress dose steroids Present on Admission?: Yes (5) GERD (gastroesophageal reflux disease): Continue pantoprazole 40 mg every morning Present on Admission?: Yes (6) Hypertension: See above Present on Admission?: Yes (7) Chronic kidney disease, stage V: Creatinine 3.53 upon admission, within her usual range. Continue sodium bicarbonate, iron sulfate, vitamin D3, and calcium carbonate Follow serial BMP Present on Admission?: Yes (8) Diabetes mellitus, type 2: Hold Lantus 8 units subcu at bedtime Placed on Accu-Cheks before meals and at bedtime with NovoLog coverage per scale Present on Admission?: Yes (9) Asthma: Continue zafirlukast 20 mg every 12 hours, guaifenesin 1200 mg p.o. every 12 hours, and budesonide- formoterol HFA. Present on Admission?: Yes History of Present Illness Chief Complaint: The patient presents to the emergency department with persistent shortness of breath, dyspnea on exertion, and worsening swelling in bilateral lower extremities Primary Care Provider: Se Tovar MD The patient is an 79-year-old female with a past medical history including CHF, NELSON, asthma, glaucoma, depression, CVA, protein S deficiency, history of DVT, anemia, parastomal hernia, left-sided breast cancer, GERD, hyperlipidemia, RA, ulcerative colitis, diabetes mellitus, CKD stage IV, hypertension and lung nodule. She reports that she had recently had her Bumex increased 2.25 mg p.o. twice daily, and has had continued worsening of the above symptoms. Allergies Allergy/AdvReac Type Severity Reaction Status Date / Time Bactrim Allergy Severe dizzy,dyseq Verified 10/26/17 14:59 uilibrium bee venom protein (honey bee) Allergy Severe ANAPHYLAXIS Verified 10/13/19 19:30 cefaclor Allergy Severe stiff and Verified 10/13/19 19:30 sore muscles-PT DENIES lisinopril Allergy Severe tongue Verified 10/13/19 19:30 swelling diltiazem Allergy Intermediate rash Verified 10/13/19 19:30 Penicillins Allergy Mild RASH Verified 10/13/19 19:31 tetracycline Allergy Mild UNK-PT Verified 10/13/19 19:31 DENIES amoxicillin Allergy Unknown RASH Verified 10/13/19 19:31 baclofen Allergy Unknown Unknown Verified 10/13/19 19:32 cefuroxime Allergy Unknown TAST Verified 10/13/19 19:32 clavulanic acid Allergy Unknown ITCHING Verified 10/13/19 19:32 levofloxacin Allergy Unknown NAUSEA, Verified 10/13/19 19:32 DIZZINESS alendronate sodium AdvReac Intermediate FELT SICK Verified 10/13/19 19:33 Cipro AdvReac Intermediate LEGS ARMS Verified 10/26/17 14:59 STIFF, PAINFUL ciprofloxacin AdvReac Intermediate LEGS ARMS Verified 10/13/19 19:33 STIFF, PAINFUL doxycycline AdvReac Intermediate nausea and Verified 10/13/19 19:33 vomiting metformin AdvReac Intermediate CAUSED Verified 10/13/19 19:33 BACK PAIN [employer] LACTIC ACID LEVELS tramadol AdvReac Intermediate DIZZINESS Verified 10/13/19 19:34 adhesive AdvReac Mild redness Verified 10/13/19 19:34 mercaptopurine AdvReac Mild MADE HER Verified 10/13/19 19:34 VERY ILL olmesartan AdvReac Mild HEADACHE Verified 10/13/19 19:34 Sulfa (Sulfonamide AdvReac Mild CAUSED Verified 10/13/19 19:35 Antibiotics) DIZZINESS sulfamethoxazole AdvReac Mild CAUSED Verified 10/13/19 19:35 DIZZINESS trimethoprim AdvReac Mild BACTRIM Verified 10/13/19 19:35 CAUSED DIZZINESS aspirin AdvReac Unknown CAUSES Verified 10/13/19 19:35 BRUISING Home Medications Home Medications Medication Instructions Recorded Confirmed Type Lantus Solostar U-100 Insulin 8 unit SUBCUT HS 11/22/17 10/13/19 History anastrozole 1 mg PO QPM 11/22/17 10/13/19 History aspirin [Aspirin Low Dose] 81 mg PO QPM 11/22/17 10/13/19 History calcium carbonate-vitamin D3 1 tab PO QPM 11/22/17 10/13/19 History [Os-Conrda 500 + D3] cholecalciferol (vitamin D3) 5,000 unit PO QAM 11/22/17 10/13/19 History metoprolol tartrate 12.5 mg PO BID 11/22/17 10/13/19 History multivitamin with minerals 1 tab PO QAM 11/22/17 10/13/19 History pantoprazole 40 mg PO QAM 11/22/17 10/13/19 History prednisone 5 mg PO QAM 11/22/17 10/13/19 History brimonidine 1 drp OPB BID 06/22/18 10/13/19 History dorzolamide 1 drp OPR BID 06/22/18 10/13/19 History ferrous sulfate 325 mg PO BID #0 tab 06/25/18 10/13/19 Rx budesonide-formoterol HFA 80 2 puff INHALATION BID #3 inhaler 02/01/19 10/13/19 Rx mcg-4.5 mcg/actuation aerosol inhaler zafirlukast 20 mg tablet 20 mg PO Q12H #180 tab 02/01/19 10/13/19 Rx albuterol sulfate 90 mcg/actuation 2 - 4 puff INHALATION QID PRN #3 02/15/19 Rx aerosol inhaler inhaler bupropion HCl 300 mg 24 hr tablet, 300 mg PO QAM tab 03/06/19 10/13/19 History extended release acetaminophen [Tylenol Extra 500 mg PO Q6H PRN 08/25/19 10/13/19 History Strength] diclofenac sodium [Voltaren] 2 g EXT QID PRN #100 gm 08/31/19 10/13/19 Rx guaifenesin [Mucinex] 1,200 mg PO Q12 #30 tab 08/31/19 10/13/19 Rx miconazole nitrate [Desenex] 1 applic EXT PRN PRN #43 gm 08/31/19 10/13/19 Rx sodium bicarbonate 650 mg tablet 650 mg PO BID tab 07/15/20 08/14/20 History bumetanide 1 mg PO DAILY PRN 10/13/19 10/13/19 History Past Med/Surg History Medical History Acute osteomyelitis (06/05/01) "MRSA of the thoracic spine " On 02/05/12 10:49 Wilfredo Anthony Al wrote "MRSA of the thoracic spine " Asthma Breast cancer, left breast X2--1ST)2005 2)2012---SX,RADIATION Chronic back pain Chronic kidney disease, stage V CKD (chronic kidney disease) Deep vein thrombosis L LEG Fibromyalgia GERD (gastroesophageal reflux disease) Glaucoma BILT EYES Hyperlipidemia Hypertension Pneumonia, organism unspecified (02/05/12) Protein S deficiency Rheumatoid arthritis Spinal stenosis Stroke 07/2017--DIFFICULTY WALKING Trigeminal neuralgia Ulcerative colitis Vitamin D deficiency Surgical History H/O bilateral cataract extraction H/O right inguinal hernia repair History of appendectomy History of bowel resection 1993 WITH ILEOSTOMY @ [facility] [place] History of breast biopsy LEFT MALIGNANT X2 History of colonoscopy History of esophagogastroduodenoscopy (EGD) History of gastric surgery 2012---[facility] ON STOMACH WALL History of lumpectomy of left breast X2 2005 WITH LYMPH NODE REMOVAL, 2012 History of tooth extraction ALL TEETH Family History Brother Family history of diabetes mellitus 2 BROTHERS Mother Family hx of colon cancer Father Family hx of colon cancer Social History Smoking Status: Former smoker Tobacco Type: Cigarettes Second Hand Exposure: Yes ( SMOKED); Hx Alcohol Use: No Hx Substance Use: No Preferred Language: [place] Communication Ability: Effective Sports Medicine Trainer Required: No Beliefs That Will Affect Care: None marital status: Current Living Situation: Spouse Current Living Situation Comment: Patient lives w/ . Feels Safe at Home: Yes Review of Systems Review of Systems: The patient denies chest pain, palpitations, cough, sore throat, fevers, chills, sweats, nausea, vomiting, diarrhea , constipation, abdominal pain, pelvic pain, blood in urine or stool, dysuria, urinary frequency or urgency, lightheadedness, dizziness, headache, memory loss, loss of consciousness, abnormal bruising or bleeding, imbalance, focal or generalized weakness, numbness or tingling in arms or legs, generalized arthralgias or myalgias, back or neck pain, or night sweats. The review of systems is otherwise negative other than for that already noted above, and at least 10 systems have been reviewed. Physical Exam Physical Exam: The patient is awake, alert and oriented 3, well developed and well nourished, normocephalic and atraumatic, lying in bed and in no acute distress. HEENT--PERRL, EOMI, mucous membranes and oropharynx normal. Neck--supple. No JVD. No bruits. Thyroid normal, trachea midline, no adenopathy. Heart--normal S1 and S2. No murmurs, rubs or gallops. Lungs--clear bilaterally, no respiratory distress, no accessory muscle use. Abdomen--normal bowel sounds and soft. Nontender. Nondistended. Obese Extremities--no cyanosis or clubbing. 2+ bilateral pretibial and 3+ pedal pitting edema. Dermatologic--left lower extremity with moderately severe erythema from ankle to [place], with shallow ulcer medially, and several vacuoles. --Right lower extremity with mild erythema from ankle to [place]. Neurologic--cranial nerves II through XII grossly intact. Rheumatologic--normal range of motion. Psychiatric--normal affect. Results & Data Results & Data ([facility]) Vital Signs (Past 12 Hours) Vital Signs Temp Pulse Pulse Resp BP BP Pulse Ox 10/13/19 19:32 211/101 H 10/13/19 18:44 78 20 96 10/13/19 17:38 97.9 F 80 20 182/87 H 97 Laboratory Results Laboratory Results WBC 6.80 K/uL (4.8-10.8) 10/13/19 20:30 RBC 3.35 M/uL (4.2-5.4) L 10/13/19 20:30 Hgb 10.3 g/dL (12.0-16.0) L 10/13/19 20:30 Hct 32.9 % (37-47) L 10/13/19 20:30 MCV 98.2 fL (80-100) 10/13/19 20:30 MCH 30.7 pg (25-34) 10/13/19 20:30 MCHC 31.3 g/dL (32-36) L 10/13/19 20:30 RDW Std Deviation 48.8 fL (36.4-46.3) H 10/13/19 20:30 RDW Coeff of Michelle 13.6 % (11.5-14.5) 10/13/19 20:30 Plt Count 217 K/uL (130-400) 10/13/19 20:30 MPV 10.1 fL (7.4-10.4) 10/13/19 20:30 Immature Gran % (Auto) 0.1 % 10/13/19 20:30 Neut % (Auto) 68.6 % 10/13/19 20:30 Lymph % (Auto) 18.2 % 10/13/19 20:30 Darke % (Auto) 10.0 % 10/13/19 20:30 Eos % (Auto) 2.8 % 10/13/19 20:30 Baso % (Auto) 0.3 % 10/13/19 20:30 Neut # (Auto) 4.66 K/uL (1.4-6.5) 10/13/19 20:30 Lymph # (Auto) 1.24 K/uL (1.2-3.4) 10/13/19 20:30 Darke # (Auto) 0.68 K/uL (0.11-0.59) H 10/13/19 20:30 Eos # (Auto) 0.19 K/uL (0-0.5) 10/13/19 20:30 Baso # (Auto) 0.02 K/uL (0-0.2) 10/13/19 20:30 Immature Gran # (Auto) 0.01 K/uL (0.00-0.02) 10/13/19 20:30 PT 10.4 Seconds (9.0-12.0) 10/13/19 20:30 INR 1.0 (0.9-1.1) 10/13/19 20:30 APTT 22.3 Seconds (21.0-31.0) 10/13/19 20:30 PTT Ratio 0.8 10/13/19 20:30 Sodium 138 mmol/L (136-145) 10/13/19 20:30 Potassium 4.0 mmol/L (3.5-5.1) 10/13/19 20:30 Chloride 108 mmol/L (98-107) H 10/13/19 20:30 Carbon Dioxide 22 mmol/L (21-32) 10/13/19 20:30 Anion Gap 7.0 (3-11) 10/13/19 20:30 BUN 39 mg/dl (7-18) H 10/13/19 20:30 Creatinine 3.53 mg/dl (0.6-1.2) H 10/13/19 20:30 Est Cr Clr Drug Dosing 14.2 ml/min 10/13/19 20:30 Est GFR ( Amer) 13.3 10/13/19 20:30 Est GFR (Non-Af Amer) 11.5 10/13/19 20:30 BUN/Creatinine Ratio 11.0 (10-20) 10/13/19 20:30 Glucose 125 mg/dl (70-99) H 10/13/19 20:30 POC Glucose 118 mg/dl (70-99) H 10/14/19 01:10 Calcium 9.1 mg/dl (8.5-10.1) 10/13/19 20:30 Troponin I 0.026 ng/ml (0-0.045) 10/13/19 20:30 NT-Pro-B Natriuret Pep 30247 pg/ml (0-1800) H 10/13/19 20:30 Lipase 53 U/L (73-393) L 10/13/19 20:30 Diagnostic Findings [place], [place] [phone] XRay Report Patient: HOMER MACEDO EAdmit Date: 10/13/19 MR#: [id number]: [address] Acct ID:[id number]: Date: 1940[facility] Zip: [place] [address] Age: 79Location: ED Sex: F Room/Bed: Att Phy:Diagnosis: SWELLING IN LEGS Chasity Phy: Se Tovar M.D.Service Date: 10/13/19 Fam Phy: Se Tovar M.D.Interpreting Phy: Errol Cavanaugh Admit Phy: Ordering Phy: Manolo Mc MD cc: ~ XR chest 1V portable HISTORY: 79 years-old Female Chest Pain acute atypical chest pain COMPARISON: Chest CT 08/30/2019, chest radiograph 08/27/2019 TECHNIQUE: Portable AP view of the chest FINDINGS: Cardiac silhouette is enlarged. Pulmonary vascular congestion. Linear right midlung atelectasis/scarring. Trace pleural effusions with mild left greater than right bibasilar opacities. No pneumothorax. Degenerative changes of the spine and left shoulder. Remote right proximal humerus fracture deformity. IMPRESSION: 1. Cardiomegaly with pulmonary vascular congestion. 2. Trace pleural effusions with mild bibasilar opacities favoring probable atelectasis. ACT 112: Negative or not required by law. The above report was generated using voice recognition software. It may contain grammatical, syntax or spelling errors. Electronically signed by: Rodolfo Cavanaugh M.D. 10/13/2019 7:24 PM Dictated: 10/13/191922 Transcribed: 10/13/191922 Code Status & VTE Plan Code Status Full code VTE Prophylaxis Plan VTE Prophylaxis will be ordered: Yes PG Care Time/CCT Total # of Minutes Spent Total Time Spent with Patient: Total time spent is greater than 50% in coordination of care (as documented) at patient's floor/unit and/or counseling patient: Coding Level of Care Code 67590 Initial Inpt Care Lvl 3 Diagnoses Acute exacerbation of CHF (congestive heart failure) I50.9 Heart failure type: unspecified Cellulitis of both lower extremities L03.115; L03.116 Depression F32.9 Rheumatoid arthritis M06.9 GERD (gastroesophageal reflux disease) K21.9 Hypertension I10 Chronic kidney disease, stage V N18.5 Diabetes mellitus, type 2 E11.9 Asthma J45.909 (1) Acute exacerbation of CHF (congestive heart failure) Heart failure type: unspecified Qualified Code(s): I50.9 - Heart failure, unspecified
[2019-10-13] MEDS ORDERED: DAPTOmycin 250 MG in SYRINGE 0 ML IV ONE (23:15)
[2019-10-14] MEDS ORDERED: ONDANSETRON INJ 2 MG/ML 2 ML VIAL IV PRN (01:33)
[2019-10-14] MEDS ORDERED: ALUMINUM/MAGNESIUM SUSP 30 ML UDC PO PRN (01:33)
[2019-10-14] MEDS ORDERED: GLUCAGON FOR INJ 1 MG VIAL SQ PRN (01:33)
[2019-10-14] MEDS ORDERED: MAGNESIUM HYDROXIDE SUSP 30 ML UDC PO PRN (01:33)
[2019-10-14] MEDS ORDERED: BUMETANIDE 1 MG TAB PO PRN (01:33)
[2019-10-14] MEDS ORDERED: MICONAZOLE NITRATE POWDER 43 GM EXT PRN (01:33)
[2019-10-14] MEDS ORDERED: GLUCOSE 40% GEL 15 GM TUBE PO PRN (01:33)
[2019-10-14] MEDS ORDERED: CARBOHYDRATES FOR HYPOGLYCEMIA PO PRN (01:33)
[2019-10-14] MEDS ORDERED: ACETAMINOPHEN 500 MG TAB PO PRN (01:33)
[2019-10-14] MEDS ORDERED: DEXTROSE 50% 50 ML SYRINGE IV PRN (01:33)
[2019-10-14] MEDS ORDERED: GLUCOSE 10 TABS/TUBE PO PRN (01:33)
[2019-10-14] MEDS ORDERED: ACETAMINOPHEN 325 MG TAB PO PRN (01:33)
[2019-10-14] MEDS ORDERED: AZTREONAM 2,000 MG in DEXTROSE 5% 100 ML IV STA (02:07)
[2019-10-14] MEDS ORDERED: AZTREONAM CONSULT ACTIVE PRN (02:09)
[2019-10-14] MEDS: BRIMONIDINE TARTRATE 0.2% 5ML OPB SCH ×3 (03:51→21:10)
[2019-10-14] MEDS: FERROUS SULFATE 325 MG TAB PO SCH ×3 (03:53→21:04)
[2019-10-14] MEDS: METOPROLOL TARTRATE 25 MG TAB PO SCH ×3 (03:54→21:03)
[2019-10-14] MEDS: MONTELUKAST SODIUM 10 MG TABLET PO SCH ×2 (03:55→21:04)
[2019-10-14] MEDS: DORZOLAMIDE HCL 2% OPH SOLN 10 ML BTL OPR SCH ×3 (03:56→21:10)
[2019-10-14] MEDS: BUDESONIDE/FORMOTEROL FUMARATE 80/4.5 60 PUFFS/INHALER INH SCH ×3 (03:56→21:47)
[2019-10-14] MEDS: SODIUM BICARBONATE 650 MG TAB PO SCH ×3 (03:56→21:04)
[2019-10-14] MEDS: ACETAMINOPHEN 500 MG TAB PO PRN ×2 (04:12→16:16)
[2019-10-14] MEDS: ALBUTEROL HFA 8 GM INHALER INH PRN (05:12)
[2019-10-14 05:40] LABS: Basophils # (auto) 0.02 K/uL (0-0.2); Basophils % (auto) 0.3 %; Eosinophils # (auto) 0.17 K/uL (0-0.5); Eosinophils % (auto) 2.5 %; Hematocrit (blood only) 34.4 % (37-47); Hemoglobin 10.3 g/dL (12.0-16.0); Immature Granulocytes # (auto) 0.02 K/uL (0.00-0.02); Immature Granulocytes % (auto) 0.3 %; Lymphocytes # (auto) 1.32 K/uL (1.2-3.4); Lymphocytes % (auto) 19.6 %; Mean Corpuscular Hemoglobin 29.6 pg (25-34); Mean Corpuscular Hgb Conc 29.9 g/dL (32-36); Mean Corpuscular Volume 98.9 fL (80-100); Mean Platelet Volume 9.7 fL (7.4-10.4); Monocytes % (auto) 10.4 %; Neutrophils # (auto) 4.49 K/uL (1.4-6.5); Neutrophils % (auto) 66.9 %; Platelet Count 221 K/uL (130-400); RDW Coefficient of Variation 13.6 % (11.5-14.5); RDW Standard Deviation 48.8 fL (36.4-46.3); Red Blood Count 3.48 M/uL (4.2-5.4); White Blood Count 6.72 K/uL (4.8-10.8)
[2019-10-14 05:52] LABS: Partial Thromboplastin Ratio 0.9; Partial Thromboplastin Time 24.8 Seconds (21.0-31.0); Prothrombin Time 10.6 Seconds (9.0-12.0)
[2019-10-14 06:04] LABS: Albumin Level 2.6 gm/dl (3.4-5.0); BUN Creatinine Ratio 10.6 (10-20); Calcium 8.7 mg/dl (8.5-10.1); Creatinine Clr Calc Pharmacy 14.8 ml/min; Est GFR (African American) 13.9; Magnesium 1.9 mg/dl (1.8-2.4); Potassium 3.9 mmol/L (3.5-5.1)
[2019-10-14 06:07] LABS: Bilirubin,Total 0.3 mg/dl (0.2-1); Globulin 2.7 gm/dl (2.5-4.0); Total Protein 5.3 gm/dl (6.4-8.2)
[2019-10-14] MEDS ORDERED: PNEUMOCOCCAL Polysaccharide Vaccine 25mcg/0.5mL vial/Syr IM ONE (06:30)
[2019-10-14 07:11] LABS: Estimated Average Glucose 123 mg/dl; Hemoglobin A1C 5.9 % (4.5-5.6)
[2019-10-14] MEDS: INSULIN ASPART 100 UNITS/ML 3 ML PEN SC SCH ×4 (09:05→20:57)
[2019-10-14] MEDS: BUMETANIDE 1 MG in SYRINGE 0 ML IV SCH ×2 (09:05→16:17)
[2019-10-14] MEDS: predniSONE 5 MG TAB PO SCH (09:38)
[2019-10-14] MEDS: CHOLECALCIFEROL 1,000 UNITS 25 MCG TAB PO SCH (09:38)
[2019-10-14] MEDS: PANTOprazole 40 MG TAB PO SCH (09:38)
[2019-10-14] MEDS: guaiFENesin 600 MG TABCR PO SCH ×2 (09:38→21:05)
[2019-10-14] MEDS: BuPROPion XL 300 MG TABCR PO SCH (09:38)
[2019-10-14] MEDS: CEROVITE ADV FORMULA TAB PO SCH (09:38)
[2019-10-14] MEDS: DICLOFENAC SOD 1% GEL 100 GM TUBE EXT PRN (10:02)
[2019-10-14] MEDS: AZTREONAM 1,000 MG in DEXTROSE 5% 100 ML IV SCH ×2 (11:14→17:46)
--- NOTE | 2019-10-14 17:09 | Hospitalist Progress Note ---
Date of Service October 14, 2019 Assessment & Plan (1) Acute exacerbation of CHF (congestive heart failure): With volume overload Acute on chronic diastolic CHF, Pulm HTN ECHO 07/2019 with preserved EF, mild AI, mild MR, elevated RVSP Making more urine but I/Os not reflecting significant diuresis yet strict I/Os, daily weights, low Na+ diet -Hold oral Bumex from home Given Bumex 2 mg IV x1 by the ED. -continue Bumex 1 mg IV twice daily Continue aspirin 81 mg daily, and metoprolol tartrate 12.5 mg p.o. twice daily follow BMP (2) Cellulitis of both lower extremities: Cellulitis of bilateral lower extremities, left > right-improving Afebrile, no leukocytosis, not septic -continue daptomycin IV and aztreonam IV. Continue to work on diuresis. (3) Depression: Continue bupropion extended release 300 mg p.o. every morning (4) Rheumatoid arthritis: Continue prednisone 5 mg p.o. every morning. Monitor for potential need for stress dose steroids (5) GERD (gastroesophageal reflux disease): Continue pantoprazole 40 mg every morning (6) Hypertension: controlled -continue metoprolol (7) Chronic kidney disease, stage V: Creatinine 3.53 upon admission, within her usual range. Now down to 3.4 Continue sodium bicarbonate, iron sulfate, vitamin D3, and calcium carbonate Follow serial BMP (8) Diabetes mellitus, type 2: Holding home Lantus 8 units subcu at bedtime Glucose controlled here Placed on Accu-Cheks before meals and at bedtime with NovoLog coverage per scale (9) Asthma: Continue zafirlukast 20 mg every 12 hours, guaifenesin 1200 mg p.o. every 12 hours, and budesonide- formoterol HFA. no acute issues (10) History of DVT (deep vein thrombosis): h/o Protein S deficiency, cannot tolerate anticoag due to recurrent bleeding (11) Back pain: add hydrocodone prn tylenol prn heating pad ZAHIRA avila (12) Abnormal ECG: serial trop negative, ST an TW changes lateral leads no chest pain, not concerning (13) DVT prophylaxis: add heparin Dispo-continued stay Admission and Anticipated Discharge Date Admission Date: October 13, 2019 Subjective Feeling pain in right mid back that is chronic. Thinks redness in leg on right is improved but left leg still red. Swelling she said is the same as before. Denies CP. Has SOB with exertion. Does feel she is urinating more today than usual. Tele with NSR 60s-80 Review of Systems Review of Systems: All systems reviewed & are unremarkable except as noted in HPI & below Physical Exam Constitutional: WD/WN, vitals as above + obese Eyes: + anicteric sclerae Neck: trachea midline, no thyromegaly Respiratory: normal respiratory effort, lungs clear to auscultation Cardiovascular: Rate/Rhythm: regular rate and regular rhythm Heart Sounds: no murmur Extremities: + edema (2+ pitting to knees bilat) Chest (Breasts): Chest: normal inspection of chest Gastrointestinal (Abdomen): normal bowel sounds, soft, nontender, no hepatosplenomegaly (with colostomy bag with liquid stool) Musculoskeletal: Extremities: no cyanosis and no clubbing Skin: + rash (legs bilat erythema L>R) Neurologic: moves all extremities and awake; no focal motor deficits Psychiatric: A+Ox3, euthymic affect Lymphatic: no lymphedema Results & Data Results & Data ([facility]) Vital Signs (Past 12 Hours) Vital Signs Temp Pulse Resp BP Pulse Ox 10/14/19 16:19 142/80 H 10/14/19 09:36 152/98 H 10/14/19 08:12 36.7 C 79 18 95 10/14/19 05:12 80 18 96 Laboratory Results 10/14/19 10/14/19 10/14/19 Range/Units 16:57 11:24 09:24 WBC (4.8-10.8) K/uL RBC (4.2-5.4) M/uL Hgb (12.0-16.0) g/dL Hct (37-47) % MCV (80-100) fL MCH (25-34) pg MCHC (32-36) g/dL RDW Std Deviation (36.4-46.3) fL RDW Coeff of Michelle (11.5-14.5) % Plt Count (130-400) K/uL MPV (7.4-10.4) fL Immature Gran % (Auto) % Neut % (Auto) % Lymph % (Auto) % [place] % (Auto) % Eos % (Auto) % Baso % (Auto) % Neut # (Auto) (1.4-6.5) K/uL Lymph # (Auto) (1.2-3.4) K/uL [place] # (Auto) (0.11-0.59) K/uL Eos # (Auto) (0-0.5) K/uL Baso # (Auto) (0-0.2) K/uL Immature Gran # (Auto) (0.00-0.02) K/uL PT (9.0-12.0) Seconds INR (0.9-1.1) APTT (21.0-31.0) Seconds PTT Ratio Sodium (136-145) mmol/L Potassium (3.5-5.1) mmol/L Chloride (98-107) mmol/L Carbon Dioxide (21-32) mmol/L Anion Gap (3-11) BUN (7-18) mg/dl Creatinine (0.6-1.2) mg/dl Est Cr Clr Drug Dosing ml/min Est GFR ( Amer) Est GFR (Non-Af Amer) BUN/Creatinine Ratio (10-20) Glucose (70-99) mg/dl POC Glucose 164 H 82 (70-99) mg/dl Estimat Average Glucose mg/dl Hemoglobin A1c (4.5-5.6) % Calcium (8.5-10.1) mg/dl Magnesium (1.8-2.4) mg/dl Total Bilirubin (0.2-1) mg/dl AST (15-37) U/L ALT (12-78) U/L Alkaline Phosphatase (45-117) U/L Troponin I 0.031 (0-0.045) ng/ml NT-Pro-B Natriuret Pep (0-1800) pg/ml Total Protein (6.4-8.2) gm/dl Albumin (3.4-5.0) gm/dl Globulin (2.5-4.0) gm/dl Albumin/Globulin Ratio (0.9-2) Lipase (73-393) U/L 10/14/19 10/14/19 10/14/19 Range/Units 07:36 05:20 05:20 WBC (4.8-10.8) K/uL RBC (4.2-5.4) M/uL Hgb (12.0-16.0) g/dL Hct (37-47) % MCV (80-100) fL MCH (25-34) pg MCHC (32-36) g/dL RDW Std Deviation (36.4-46.3) fL RDW Coeff of Michelle (11.5-14.5) % Plt Count (130-400) K/uL MPV (7.4-10.4) fL Immature Gran % (Auto) % Neut % (Auto) % Lymph % (Auto) % [place] % (Auto) % Eos % (Auto) % Baso % (Auto) % Neut # (Auto) (1.4-6.5) K/uL Lymph # (Auto) (1.2-3.4) K/uL [place] # (Auto) (0.11-0.59) K/uL Eos # (Auto) (0-0.5) K/uL Baso # (Auto) (0-0.2) K/uL Immature Gran # (Auto) (0.00-0.02) K/uL PT (9.0-12.0) Seconds INR (0.9-1.1) APTT (21.0-31.0) Seconds PTT Ratio Sodium 140 (136-145) mmol/L Potassium 3.9 (3.5-5.1) mmol/L Chloride 111 H (98-107) mmol/L Carbon Dioxide 23 (21-32) mmol/L Anion Gap 6.0 (3-11) BUN 36 H (7-18) mg/dl Creatinine 3.41 H (0.6-1.2) mg/dl Est Cr Clr Drug Dosing 14.8 ml/min Est GFR ( Amer) 13.9 Est GFR (Non-Af Amer) 12.0 BUN/Creatinine Ratio 10.6 (10-20) Glucose 168 H (70-99) mg/dl POC Glucose 150 H (70-99) mg/dl Estimat Average Glucose 123 mg/dl Hemoglobin A1c 5.9 H (4.5-5.6) % Calcium 8.7 (8.5-10.1) mg/dl Magnesium 1.9 (1.8-2.4) mg/dl Total Bilirubin 0.3 (0.2-1) mg/dl AST 11 L (15-37) U/L ALT 12 (12-78) U/L Alkaline Phosphatase 55 (45-117) U/L Troponin I (0-0.045) ng/ml NT-Pro-B Natriuret Pep (0-1800) pg/ml Total Protein 5.3 L (6.4-8.2) gm/dl Albumin 2.6 L (3.4-5.0) gm/dl Globulin 2.7 (2.5-4.0) gm/dl Albumin/Globulin Ratio 1.0 (0.9-2) Lipase (73-393) U/L 10/14/19 10/14/19 10/14/19 Range/Units 05:20 05:20 02:23 WBC 6.72 (4.8-10.8) K/uL RBC 3.48 L (4.2-5.4) M/uL Hgb 10.3 L (12.0-16.0) g/dL Hct 34.4 L (37-47) % MCV 98.9 (80-100) fL MCH 29.6 (25-34) pg MCHC 29.9 L (32-36) g/dL RDW Std Deviation 48.8 H (36.4-46.3) fL RDW Coeff of Michelle 13.6 (11.5-14.5) % Plt Count 221 (130-400) K/uL MPV 9.7 (7.4-10.4) fL Immature Gran % (Auto) 0.3 % Neut % (Auto) 66.9 % Lymph % (Auto) 19.6 % [place] % (Auto) 10.4 % Eos % (Auto) 2.5 % Baso % (Auto) 0.3 % Neut # (Auto) 4.49 (1.4-6.5) K/uL Lymph # (Auto) 1.32 (1.2-3.4) K/uL [place] # (Auto) 0.70 H (0.11-0.59) K/uL Eos # (Auto) 0.17 (0-0.5) K/uL Baso # (Auto) 0.02 (0-0.2) K/uL Immature Gran # (Auto) 0.02 (0.00-0.02) K/uL PT 10.6 (9.0-12.0) Seconds INR 1.0 (0.9-1.1) APTT 24.8 (21.0-31.0) Seconds PTT Ratio 0.9 Sodium (136-145) mmol/L Potassium (3.5-5.1) mmol/L Chloride (98-107) mmol/L Carbon Dioxide (21-32) mmol/L Anion Gap (3-11) BUN (7-18) mg/dl Creatinine (0.6-1.2) mg/dl Est Cr Clr Drug Dosing ml/min Est GFR ( Amer) Est GFR (Non-Af Amer) BUN/Creatinine Ratio (10-20) Glucose (70-99) mg/dl POC Glucose (70-99) mg/dl Estimat Average Glucose mg/dl Hemoglobin A1c (4.5-5.6) % Calcium (8.5-10.1) mg/dl Magnesium (1.8-2.4) mg/dl Total Bilirubin (0.2-1) mg/dl AST (15-37) U/L ALT (12-78) U/L Alkaline Phosphatase (45-117) U/L Troponin I 0.027 (0-0.045) ng/ml NT-Pro-B Natriuret Pep (0-1800) pg/ml Total Protein (6.4-8.2) gm/dl Albumin (3.4-5.0) gm/dl Globulin (2.5-4.0) gm/dl Albumin/Globulin Ratio (0.9-2) Lipase (73-393) U/L 10/14/19 10/13/19 10/13/19 Range/Units 01:10 20:30 20:30 WBC (4.8-10.8) K/uL RBC (4.2-5.4) M/uL Hgb (12.0-16.0) g/dL Hct (37-47) % MCV (80-100) fL MCH (25-34) pg MCHC (32-36) g/dL RDW Std Deviation (36.4-46.3) fL RDW Coeff of Michelle (11.5-14.5) % Plt Count (130-400) K/uL MPV (7.4-10.4) fL Immature Gran % (Auto) % Neut % (Auto) % Lymph % (Auto) % [place] % (Auto) % Eos % (Auto) % Baso % (Auto) % Neut # (Auto) (1.4-6.5) K/uL Lymph # (Auto) (1.2-3.4) K/uL [place] # (Auto) (0.11-0.59) K/uL Eos # (Auto) (0-0.5) K/uL Baso # (Auto) (0-0.2) K/uL Immature Gran # (Auto) (0.00-0.02) K/uL PT 10.4 (9.0-12.0) Seconds INR 1.0 (0.9-1.1) APTT 22.3 (21.0-31.0) Seconds PTT Ratio 0.8 Sodium 138 (136-145) mmol/L Potassium 4.0 (3.5-5.1) mmol/L Chloride 108 H (98-107) mmol/L Carbon Dioxide 22 (21-32) mmol/L Anion Gap 7.0 (3-11) BUN 39 H (7-18) mg/dl Creatinine 3.53 H (0.6-1.2) mg/dl Est Cr Clr Drug Dosing 14.2 ml/min Est GFR ( Amer) 13.3 Est GFR (Non-Af Amer) 11.5 BUN/Creatinine Ratio 11.0 (10-20) Glucose 125 H (70-99) mg/dl POC Glucose 118 H (70-99) mg/dl Estimat Average Glucose mg/dl Hemoglobin A1c (4.5-5.6) % Calcium 9.1 (8.5-10.1) mg/dl Magnesium (1.8-2.4) mg/dl Total Bilirubin (0.2-1) mg/dl AST (15-37) U/L ALT (12-78) U/L Alkaline Phosphatase (45-117) U/L Troponin I 0.026 (0-0.045) ng/ml NT-Pro-B Natriuret Pep 44050 H (0-1800) pg/ml Total Protein (6.4-8.2) gm/dl Albumin (3.4-5.0) gm/dl Globulin (2.5-4.0) gm/dl Albumin/Globulin Ratio (0.9-2) Lipase 53 L (73-393) U/L 10/13/19 Range/Units 20:30 WBC 6.80 (4.8-10.8) K/uL RBC 3.35 L (4.2-5.4) M/uL Hgb 10.3 L (12.0-16.0) g/dL Hct 32.9 L (37-47) % MCV 98.2 (80-100) fL MCH 30.7 (25-34) pg MCHC 31.3 L (32-36) g/dL RDW Std Deviation 48.8 H (36.4-46.3) fL RDW Coeff of Michelle 13.6 (11.5-14.5) % Plt Count 217 (130-400) K/uL MPV 10.1 (7.4-10.4) fL Immature Gran % (Auto) 0.1 % Neut % (Auto) 68.6 % Lymph % (Auto) 18.2 % Jackson % (Auto) 10.0 % Eos % (Auto) 2.8 % Baso % (Auto) 0.3 % Neut # (Auto) 4.66 (1.4-6.5) K/uL Lymph # (Auto) 1.24 (1.2-3.4) K/uL Jackson # (Auto) 0.68 H (0.11-0.59) K/uL Eos # (Auto) 0.19 (0-0.5) K/uL Baso # (Auto) 0.02 (0-0.2) K/uL Immature Gran # (Auto) 0.01 (0.00-0.02) K/uL PT (9.0-12.0) Seconds INR (0.9-1.1) APTT (21.0-31.0) Seconds PTT Ratio Sodium (136-145) mmol/L Potassium (3.5-5.1) mmol/L Chloride (98-107) mmol/L Carbon Dioxide (21-32) mmol/L Anion Gap (3-11) BUN (7-18) mg/dl Creatinine (0.6-1.2) mg/dl Est Cr Clr Drug Dosing ml/min Est GFR ( Amer) Est GFR (Non-Af Amer) BUN/Creatinine Ratio (10-20) Glucose (70-99) mg/dl POC Glucose (70-99) mg/dl Estimat Average Glucose mg/dl Hemoglobin A1c (4.5-5.6) % Calcium (8.5-10.1) mg/dl Magnesium (1.8-2.4) mg/dl Total Bilirubin (0.2-1) mg/dl AST (15-37) U/L ALT (12-78) U/L Alkaline Phosphatase (45-117) U/L Troponin I (0-0.045) ng/ml NT-Pro-B Natriuret Pep (0-1800) pg/ml Total Protein (6.4-8.2) gm/dl Albumin (3.4-5.0) gm/dl Globulin (2.5-4.0) gm/dl Albumin/Globulin Ratio (0.9-2) Lipase (73-393) U/L PG Care Time/CCT Total # of Minutes Spent Total Time Spent with Patient: Total time spent is greater than 50% in coordination of care (as documented) at patient's floor/unit and/or counseling patient: Coding Level of Care Code 52633 Subseq Hosp Care Lvl 3 Diagnoses Acute exacerbation of CHF (congestive heart failure) I50.9 Heart failure type: unspecified Cellulitis of both lower extremities L03.115; L03.116 Depression F32.9 Rheumatoid arthritis M06.9 GERD (gastroesophageal reflux disease) K21.9 Hypertension I10 Chronic kidney disease, stage V N18.5 Diabetes mellitus, type 2 E11.9 Asthma J45.909 History of DVT (deep vein thrombosis) Z86.718 Back pain M54.9 Abnormal ECG R94.31 DVT prophylaxis Z29.9 (1) Acute exacerbation of CHF (congestive heart failure) Heart failure type: unspecified Qualified Code(s): I50.9 - Heart failure, unspecified
[2019-10-14] MEDS: HEPARIN SOD 5,000 UNIT/0.5 ML VIAL SQ SCH (20:59)
[2019-10-14] MEDS: ANASTROZOLE 1 MG TAB PO SCH (21:03)
[2019-10-14] MEDS: CALCIUM CARBONATE 1250MG TAB PO SCH (21:04)
[2019-10-14] MEDS: ASPIRIN 81 MG ECTAB PO SCH (21:04)
[2019-10-14] MEDS: HYDROCODONE/ACETAMOPHEN 5/325MG TAB PO PRN (23:11)
[2019-10-15] MEDS: AZTREONAM 1,000 MG in DEXTROSE 5% 100 ML IV SCH ×3 (02:02→18:06)
[2019-10-15] MEDS: BRIMONIDINE TARTRATE 0.2% 5ML OPB SCH ×2 (07:41→21:58)
[2019-10-15] MEDS: FLUTICASONE/VILANTEROL 100/25MCG 14 PUFFS/INHALER INH SCH (07:41)
[2019-10-15] MEDS: CHOLECALCIFEROL 1,000 UNITS 25 MCG TAB PO SCH (07:42)
[2019-10-15] MEDS: BuPROPion XL 300 MG TABCR PO SCH (07:42)
[2019-10-15] MEDS: DORZOLAMIDE HCL 2% OPH SOLN 10 ML BTL OPR SCH ×2 (07:42→22:04)
[2019-10-15] MEDS: PANTOprazole 40 MG TAB PO SCH (07:42)
[2019-10-15] MEDS: guaiFENesin 600 MG TABCR PO SCH ×2 (07:43→22:03)
[2019-10-15] MEDS: CEROVITE ADV FORMULA TAB PO SCH (07:43)
[2019-10-15] MEDS: SODIUM BICARBONATE 650 MG TAB PO SCH ×2 (07:43→22:03)
[2019-10-15] MEDS: predniSONE 5 MG TAB PO SCH (07:43)
[2019-10-15] MEDS: FERROUS SULFATE 325 MG TAB PO SCH ×2 (07:43→22:03)
[2019-10-15] MEDS: METOPROLOL TARTRATE 25 MG TAB PO SCH ×2 (07:43→22:03)
[2019-10-15] MEDS: HEPARIN SOD 5,000 UNIT/0.5 ML VIAL SQ SCH ×2 (07:44→22:15)
[2019-10-15] MEDS: INSULIN ASPART 100 UNITS/ML 3 ML PEN SC SCH ×4 (07:45→22:15)
[2019-10-15 08:08] LABS: Basophils # (auto) 0.04 K/uL (0-0.2); Basophils % (auto) 0.7 %; Eosinophils # (auto) 0.19 K/uL (0-0.5); Eosinophils % (auto) 3.1 %; Hematocrit (blood only) 31.1 % (37-47); Hemoglobin 9.9 g/dL (12.0-16.0); Immature Granulocytes # (auto) 0.01 K/uL (0.00-0.02); Immature Granulocytes % (auto) 0.2 %; Lymphocytes # (auto) 1.82 K/uL (1.2-3.4); Lymphocytes % (auto) 29.8 %; Mean Corpuscular Hemoglobin 30.7 pg (25-34); Mean Corpuscular Hgb Conc 31.8 g/dL (32-36); Mean Corpuscular Volume 96.6 fL (80-100); Mean Platelet Volume 9.9 fL (7.4-10.4); Monocytes # (auto) 0.63 K/uL (0.11-0.59); Monocytes % (auto) 10.3 %; Neutrophils # (auto) 3.42 K/uL (1.4-6.5); Neutrophils % (auto) 55.9 %; Platelet Count 213 K/uL (130-400); RDW Coefficient of Variation 13.5 % (11.5-14.5); RDW Standard Deviation 48.3 fL (36.4-46.3); Red Blood Count 3.22 M/uL (4.2-5.4); White Blood Count 6.11 K/uL (4.8-10.8)
[2019-10-15] MEDS: BUMETANIDE 1 MG in SYRINGE 0 ML IV SCH (09:02)
[2019-10-15] MEDS: ACETAMINOPHEN 325 MG TAB PO PRN (09:07)
[2019-10-15 09:56] LABS: Albumin Level 2.4 gm/dl (3.4-5.0); BUN Creatinine Ratio 10.7 (10-20); Calcium 8.2 mg/dl (8.5-10.1); Creatinine Clr Calc Pharmacy 14.4 ml/min; Est GFR (African American) 13.4; Est GFR (Non-African American) 11.6; Magnesium 1.9 mg/dl (1.8-2.4); Potassium 3.7 mmol/L (3.5-5.1)
[2019-10-15 09:58] LABS: Albumin Globulin Ratio 0.8 (0.9-2); Bilirubin,Total 0.3 mg/dl (0.2-1); Globulin 2.9 gm/dl (2.5-4.0); Total Protein 5.3 gm/dl (6.4-8.2)
[2019-10-15] MEDS: HEPARIN 100 UNIT/ML 5ML FLUSH FLUSH PRN ×2 (10:15→22:24)
[2019-10-15] MEDS: DICLOFENAC SOD 1% GEL 100 GM TUBE EXT PRN (13:19)
--- NOTE | 2019-10-15 14:24 | Hospitalist Progress Note ---
Date of Service October 15, 2019 Assessment & Plan (1) Acute exacerbation of CHF (congestive heart failure): With volume overload Acute on chronic diastolic CHF, Pulm HTN ECHO 07/2019 with preserved EF, mild AI, mild MR, elevated RVSP Making more urine but I/Os not reflecting significant diuresis yet, but slight diuresis from yesterday Continue strict I/Os, daily weights, low Na+ diet -Holding oral Bumex from home Was on Bumex 1 mg IV twice daily-we will increase dose to Bumex 2 mg IV for this evening's dose and then reassess in the morning prior to giving more Bumex after following renal function Continue aspirin 81 mg daily, and metoprolol tartrate 12.5 mg p.o. twice daily follow BMP (2) Cellulitis of both lower extremities: Cellulitis of bilateral lower extremities, left > right-improving daily Afebrile, no leukocytosis, not septic -continue daptomycin IV and aztreonam IV. Continue to work on diuresis. -Checking wound culture from draining ulceration on the left leg (3) Depression: Continue bupropion extended release 300 mg p.o. every morning (4) Rheumatoid arthritis: Continue prednisone 5 mg p.o. every morning. Monitor for potential need for stress dose steroids (5) GERD (gastroesophageal reflux disease): Continue pantoprazole 40 mg every morning (6) Hypertension: controlled -continue metoprolol (7) Chronic kidney disease, stage V: Creatinine 3.53 upon admission, within her usual range. Remained stable at 3.5 Continue sodium bicarbonate, iron sulfate, vitamin D3, and calcium carbonate Follow serial BMP Does not wish to pursue dialysis if renal failure worsens (8) Diabetes mellitus, type 2: Continue holding home Lantus 8 units subcu at bedtime Glucose controlled here Continue Accu-Cheks before meals and at bedtime with NovoLog coverage per scale (9) Asthma: Continue zafirlukast 20 mg every 12 hours, guaifenesin 1200 mg p.o. every 12 hours, and budesonide- formoterol HFA. no acute issues (10) History of DVT (deep vein thrombosis): h/o Protein S deficiency, cannot tolerate anticoag due to recurrent bleeding (11) Back pain: In the right mid to lower back paraspinous muscles, tender to palpation No previous imaging done Check CT of thoracic and lumbar spine -Continue hydrocodone prn -Continue Tylenol prn, Voltaren gel as needed heating pad add on lidocaine patch (12) Abnormal ECG: serial trop negative, ST an TW changes lateral leads no chest pain, not concerning (13) Leg wound, left: Wound care consultation placed Continue OPTi foam Check wound culture (14) Wound of foot: As above (15) Open wound, hand: As above (16) DVT prophylaxis: Heparin SQ Dispo-continued stay, okay to transition off telemetry to medical/surgical floor PT/OT consults will be placed Admission and Anticipated Discharge Date Admission Date: October 13, 2019 Subjective Patient feeling okay today. Perhaps a little better. Not quite as short of breath. Feels her leg swelling is slightly improved. The redness of the legs is definitely improved. Denies nausea or vomiting. No chest pain. Telemetry with normal sinus rhythm with rates in the 60s. She continues to have right mid to lower back pain and wants to know what is causing it. It seems to be worse with palpation and with certain movements. It is relieved with Tylenol and pain medicine. The Voltaren gel perhaps helped a little bit. She has never tried lidocaine patch before. It does not radiate anywhere else. Review of Systems Review of Systems: All systems reviewed & are unremarkable except as noted in HPI & below Physical Exam Constitutional: WD/WN, vitals as above + obese Eyes: + anicteric sclerae Neck: trachea midline, no thyromegaly Respiratory: normal respiratory effort, lungs clear to auscultation Cardiovascular: Rate/Rhythm: regular rate and regular rhythm Heart Sounds: no murmur Extremities: + edema (2+ pitting to knees bilat) Chest (Breasts): Chest: normal inspection of chest Gastrointestinal (Abdomen): normal bowel sounds, soft, nontender, no hepatosplenomegaly (with colostomy bag with liquid stool) Musculoskeletal: Extremities: no cyanosis and no clubbing Positive tenderness to palpation in the right paraspinous muscles of the lower thoracic upper lumbar region No mass palpated Skin: + rash (legs bilat erythema L>R much improved from previous), + lesion (Another open wound on right hand side of medial hand with exudate) and + wound (Open ulceration draining purulent fluid on left anterior leg with copious serous fluid draining as well and a dressing, left second dorsal toe ulcer with open wound with white exudate and serous drainage) Neurologic: moves all extremities and awake; no focal motor deficits Psychiatric: A+Ox3, euthymic affect Lymphatic: no lymphedema Results & Data Results & Data ([facility]) Vital Signs (Past 12 Hours) Vital Signs Temp Pulse Resp BP Pulse Ox 10/15/19 11:59 36.6 C 64 18 98 10/15/19 08:12 36.4 C L 73 18 96 10/15/19 07:36 165/75 H 10/15/19 03:29 36.5 C 73 19 96 Laboratory Results 10/15/19 10/15/19 10/15/19 Range/Units 21:00 20:34 16:11 WBC (4.8-10.8) K/uL RBC (4.2-5.4) M/uL Hgb (12.0-16.0) g/dL Hct (37-47) % MCV (80-100) fL MCH (25-34) pg MCHC (32-36) g/dL RDW Std Deviation (36.4-46.3) fL RDW Coeff of Michelle (11.5-14.5) % Plt Count (130-400) K/uL MPV (7.4-10.4) fL Immature Gran % (Auto) % Neut % (Auto) % Lymph % (Auto) % [place] % (Auto) % Eos % (Auto) % Baso % (Auto) % Neut # (Auto) (1.4-6.5) K/uL Lymph # (Auto) (1.2-3.4) K/uL [place] # (Auto) (0.11-0.59) K/uL Eos # (Auto) (0-0.5) K/uL Baso # (Auto) (0-0.2) K/uL Immature Gran # (Auto) (0.00-0.02) K/uL Sodium (136-145) mmol/L Potassium (3.5-5.1) mmol/L Chloride (98-107) mmol/L Carbon Dioxide (21-32) mmol/L Anion Gap (3-11) BUN (7-18) mg/dl Creatinine (0.6-1.2) mg/dl Est Cr Clr Drug Dosing ml/min Est GFR ( Amer) Est GFR (Non-Af Amer) BUN/Creatinine Ratio (10-20) Glucose (70-99) mg/dl POC Glucose 154 H 133 H 135 H (70-99) mg/dl Calcium (8.5-10.1) mg/dl Magnesium (1.8-2.4) mg/dl Total Bilirubin (0.2-1) mg/dl AST (15-37) U/L ALT (12-78) U/L Alkaline Phosphatase (45-117) U/L Total Protein (6.4-8.2) gm/dl Albumin (3.4-5.0) gm/dl Globulin (2.5-4.0) gm/dl Albumin/Globulin Ratio (0.9-2) 10/15/19 10/15/19 10/15/19 Range/Units 11:19 07:32 07:19 WBC (4.8-10.8) K/uL RBC (4.2-5.4) M/uL Hgb (12.0-16.0) g/dL Hct (37-47) % MCV (80-100) fL MCH (25-34) pg MCHC (32-36) g/dL RDW Std Deviation (36.4-46.3) fL RDW Coeff of Michelle (11.5-14.5) % Plt Count (130-400) K/uL MPV (7.4-10.4) fL Immature Gran % (Auto) % Neut % (Auto) % Lymph % (Auto) % [place] % (Auto) % Eos % (Auto) % Baso % (Auto) % Neut # (Auto) (1.4-6.5) K/uL Lymph # (Auto) (1.2-3.4) K/uL [place] # (Auto) (0.11-0.59) K/uL Eos # (Auto) (0-0.5) K/uL Baso # (Auto) (0-0.2) K/uL Immature Gran # (Auto) (0.00-0.02) K/uL Sodium 139 (136-145) mmol/L Potassium 3.7 (3.5-5.1) mmol/L Chloride 107 (98-107) mmol/L Carbon Dioxide 22 (21-32) mmol/L Anion Gap 10.0 (3-11) BUN 37 H (7-18) mg/dl Creatinine 3.51 H (0.6-1.2) mg/dl Est Cr Clr Drug Dosing 14.4 ml/min Est GFR ( Amer) 13.4 Est GFR (Non-Af Amer) 11.6 BUN/Creatinine Ratio 10.7 (10-20) Glucose 106 H (70-99) mg/dl POC Glucose 83 107 H (70-99) mg/dl Calcium 8.2 L (8.5-10.1) mg/dl Magnesium 1.9 (1.8-2.4) mg/dl Total Bilirubin 0.3 (0.2-1) mg/dl AST 10 L (15-37) U/L ALT 11 L (12-78) U/L Alkaline Phosphatase 51 (45-117) U/L Total Protein 5.3 L (6.4-8.2) gm/dl Albumin 2.4 L (3.4-5.0) gm/dl Globulin 2.9 (2.5-4.0) gm/dl Albumin/Globulin Ratio 0.8 L (0.9-2) /16/ Range/Units 07:19 WBC 6.11 (4.8-10.8) K/uL RBC 3.22 L (4.2-5.4) M/uL Hgb 9.9 L (12.0-16.0) g/dL Hct 31.1 L (37-47) % MCV 96.6 (80-100) fL MCH 30.7 (25-34) pg MCHC 31.8 L (32-36) g/dL RDW Std Deviation 48.3 H (36.4-46.3) fL RDW Coeff of Michelle 13.5 (11.5-14.5) % Plt Count 213 (130-400) K/uL MPV 9.9 (7.4-10.4) fL Immature Gran % (Auto) 0.2 % Neut % (Auto) 55.9 % Lymph % (Auto) 29.8 % [place] % (Auto) 10.3 % Eos % (Auto) 3.1 % Baso % (Auto) 0.7 % Neut # (Auto) 3.42 (1.4-6.5) K/uL Lymph # (Auto) 1.82 (1.2-3.4) K/uL [place] # (Auto) 0.63 H (0.11-0.59) K/uL Eos # (Auto) 0.19 (0-0.5) K/uL Baso # (Auto) 0.04 (0-0.2) K/uL Immature Gran # (Auto) 0.01 (0.00-0.02) K/uL Sodium (136-145) mmol/L Potassium (3.5-5.1) mmol/L Chloride (98-107) mmol/L Carbon Dioxide (21-32) mmol/L Anion Gap (3-11) BUN (7-18) mg/dl Creatinine (0.6-1.2) mg/dl Est Cr Clr Drug Dosing ml/min Est GFR ( Amer) Est GFR (Non-Af Amer) BUN/Creatinine Ratio (10-20) Glucose (70-99) mg/dl POC Glucose (70-99) mg/dl Calcium (8.5-10.1) mg/dl Magnesium (1.8-2.4) mg/dl Total Bilirubin (0.2-1) mg/dl AST (15-37) U/L ALT (12-78) U/L Alkaline Phosphatase (45-117) U/L Total Protein (6.4-8.2) gm/dl Albumin (3.4-5.0) gm/dl Globulin (2.5-4.0) gm/dl Albumin/Globulin Ratio (0.9-2) PG Care Time/CCT Total # of Minutes Spent Total Time Spent with Patient: Total time spent is greater than 50% in coordination of care (as documented) at patient's floor/unit and/or counseling patient: Coding Level of Care Code 79673 Subseq Hosp Care Lvl 3 Diagnoses Acute exacerbation of CHF (congestive heart failure) I50.9 Heart failure type: unspecified Cellulitis of both lower extremities L03.115; L03.116 Depression F32.9 Rheumatoid arthritis M06.9 GERD (gastroesophageal reflux disease) K21.9 Hypertension I10 Chronic kidney disease, stage V N18.5 Diabetes mellitus, type 2 E11.9 Asthma J45.909 History of DVT (deep vein thrombosis) Z86.718 Back pain M54.9 Abnormal ECG R94.31 Leg wound, left S81.802A Wound of foot S91.309A Open wound, hand S61.409A DVT prophylaxis Z29.9 (1) Acute exacerbation of CHF (congestive heart failure) Heart failure type: unspecified Qualified Code(s): I50.9 - Heart failure, unspecified
[2019-10-15] MEDS: LIDOCAINE 5% 1 PATCH TD SCH (15:08)
--- NOTE | 2019-10-15 16:19 | Electrocardiogram Report ---
Test Reason : Blood Pressure : / mmHG Vent. Rate : 085 BPM Atrial Rate : 085 BPM P-R Int : 192 ms QRS Dur : 094 ms QT Int : 346 ms P-R-T Axes : 053 009 155 degrees QTc Int : 411 ms Normal sinus rhythm Septal infarct Abnormal ECG When compared with ECG of 25-AUG-2019 14:29, No significant change was found Confirmed by Kin Stafford ([id number]) on 10/15/2019 4:19:09 PM Referred By: Shant Reyes Confirmed By:Kin Stafford
[2019-10-15] MEDS ORDERED: BUMETANIDE 2 MG in SYRINGE 0 ML IV ONE (17:00)
[2019-10-15] MEDS: HYDROCODONE/ACETAMOPHEN 5/325MG TAB PO PRN (19:52)
[2019-10-15] MEDS ORDERED: DAPTOmycin 300 MG in SYRINGE 0 ML IV SCH (22:00)
[2019-10-15] MEDS: MONTELUKAST SODIUM 10 MG TABLET PO SCH (22:03)
[2019-10-15] MEDS: ANASTROZOLE 1 MG TAB PO SCH (22:03)
[2019-10-15] MEDS: CALCIUM CARBONATE 1250MG TAB PO SCH (22:03)
[2019-10-15] MEDS: ASPIRIN 81 MG ECTAB PO SCH (22:03)
--- NOTE | 2019-10-15 22:28 | Electrocardiogram Report ---
Test Reason : Blood Pressure : / mmHG Vent. Rate : 075 BPM Atrial Rate : 075 BPM P-R Int : 200 ms QRS Dur : 092 ms QT Int : 382 ms P-R-T Axes : 050 -09 139 degrees QTc Int : 426 ms Normal sinus rhythm Possible Anterior infarct , age undetermined Abnormal ECG When compared with ECG of 13-OCT-2019 18:39, No significant change was found Confirmed by Kin Stafford ([id number]) on 10/15/2019 10:28:33 PM Referred By: Shant Reyes Confirmed By:Kin Stafford
--- NOTE | 2019-10-15 23:46 | Electrocardiogram Report ---
Test Reason : Blood Pressure : / mmHG Vent. Rate : 074 BPM Atrial Rate : 074 BPM P-R Int : 204 ms QRS Dur : 096 ms QT Int : 398 ms P-R-T Axes : 062 -06 171 degrees QTc Int : 441 ms Normal sinus rhythm Cannot rule out Anterior infarct (cited on or before 14-OCT-2019) Abnormal ECG When compared with ECG of 14-OCT-2019 08:00, No significant change was found Confirmed by Kin Stafford ([id number]) on 10/15/2019 11:45:57 PM Referred By: Shant Reyes Confirmed By:Kin Stafford
[2019-10-16] MEDS: AZTREONAM 1,000 MG in DEXTROSE 5% 100 ML IV SCH ×3 (01:28→18:27)
[2019-10-16] MEDS: HEPARIN 100 UNIT/ML 5ML FLUSH FLUSH PRN ×3 (02:51→11:17)
[2019-10-16 06:05] LABS: Basophils # (auto) 0.04 K/uL (0-0.2); Basophils % (auto) 0.6 %; Eosinophils % (auto) 3.2 %; Hematocrit (blood only) 31.5 % (37-47); Hemoglobin 9.8 g/dL (12.0-16.0); Immature Granulocytes # (auto) 0.02 K/uL (0.00-0.02); Immature Granulocytes % (auto) 0.3 %; Lymphocytes % (auto) 22.7 %; Mean Corpuscular Hemoglobin 30.1 pg (25-34); Mean Corpuscular Hgb Conc 31.1 g/dL (32-36); Mean Corpuscular Volume 96.6 fL (80-100); Mean Platelet Volume 9.9 fL (7.4-10.4); Monocytes # (auto) 0.66 K/uL (0.11-0.59); Monocytes % (auto) 10.7 %; Neutrophils # (auto) 3.85 K/uL (1.4-6.5); Neutrophils % (auto) 62.5 %; Platelet Count 224 K/uL (130-400); RDW Coefficient of Variation 13.5 % (11.5-14.5); RDW Standard Deviation 47.4 fL (36.4-46.3); Red Blood Count 3.26 M/uL (4.2-5.4); White Blood Count 6.17 K/uL (4.8-10.8)
[2019-10-16 06:47] LABS: Albumin Level 2.3 gm/dl (3.4-5.0); BUN Creatinine Ratio 11.5 (10-20); Calcium 8.4 mg/dl (8.5-10.1); Creatinine Clr Calc Pharmacy 13.8 ml/min; Est GFR (African American) 12.8; Est GFR (Non-African American) 11.1; Magnesium 1.8 mg/dl (1.8-2.4); Potassium 3.6 mmol/L (3.5-5.1)
[2019-10-16 06:50] LABS: Albumin Globulin Ratio 0.8 (0.9-2); Bilirubin,Total 0.4 mg/dl (0.2-1); Globulin 2.8 gm/dl (2.5-4.0); Total Protein 5.1 gm/dl (6.4-8.2)
--- NOTE | 2019-10-16 07:18 | CT Scan Report ---
CT thoracic spine wo con CT DOSE: 2312.40 mGy.cm CLINICAL HISTORY: Persistent severe right-sided back pain. Remote history of breast cancer TECHNIQUE: Helical images were acquired in the transverse plane. Sagittal coronal reformatted images were acquired. A dose lowering technique was utilized adhering to the principles of ALARA. COMPARISON STUDY: MRI the thoracic spine dated 02/05/2012, conventional radiographic study performed 01/27/2018, chest CT scan April 2019 FINDINGS: There is mild mediastinal lymphadenopathy. No paraspinal masses are visualized. There are small bilateral pleural effusions. There is a 7 mm right apical pulmonary nodule. There is mild thickening of the bronchovascular bundle s with areas of mucous plugging and septal thickening with dependent atelectasis. No acute fractures are visualized. 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 There are multilevel degenerative changes. There is a 4 cm left lobe thyroid nodule. IMPRESSION: 1. No acute fractures 2. Persistent 4 cm left lobe thyroid nodule 3. Stable 8 mm right apical pulmonary nodule 4. 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 Persistent mild mediastinal lymphadenopathy 6. Interval development of small bilateral pleural effusions 7. Thickening of bronchovascular markings with areas of mucous plugging septal thickening and depende nt atelectasis ACT 112: Negative or not required by law. Electronically signed by: Thai Kohli M.D. 10/16/2019 7:17 AM
[2019-10-16] MEDS: FERROUS SULFATE 325 MG TAB PO SCH ×2 (08:25→21:06)
[2019-10-16] MEDS: METOPROLOL TARTRATE 25 MG TAB PO SCH ×2 (08:25→21:05)
[2019-10-16] MEDS: guaiFENesin 600 MG TABCR PO SCH ×2 (08:26→21:05)
[2019-10-16] MEDS: CHOLECALCIFEROL 1,000 UNITS 25 MCG TAB PO SCH (08:27)
[2019-10-16] MEDS: BuPROPion XL 300 MG TABCR PO SCH (08:27)
[2019-10-16] MEDS: predniSONE 5 MG TAB PO SCH (08:28)
[2019-10-16] MEDS: PANTOprazole 40 MG TAB PO SCH (08:28)
[2019-10-16] MEDS: SODIUM BICARBONATE 650 MG TAB PO SCH ×2 (08:29→21:05)
[2019-10-16] MEDS: CEROVITE ADV FORMULA TAB PO SCH (08:29)
[2019-10-16] MEDS: DORZOLAMIDE HCL 2% OPH SOLN 10 ML BTL OPR SCH ×2 (08:29→21:04)
--- NOTE | 2019-10-16 08:29 | CT Scan Report ---
CT SCAN OF THE LUMBAR SPINE WITHOUT IV CONTRAST CLINICAL HISTORY: Chronic right-sided low back pain. COMPARISON STUDY: MRI of the lumbar spine dated 08/29/2017. Abdominal CT dated 07/23/2019. TECHNIQUE: CT scan of the lumbar spine is performed from the lower thoracic spine to the sacrum. Imag es are reviewed in the axial, sagittal, and coronal planes. IV contrast was not administered for this examination. A dose lowering technique was utilized adhering to the principles of ALARA. FINDINGS: The skeletal structures are osteopenic. There is no evidence of fracture or malalignment in volving the lumbar spine. Vertebral body height is maintained throughout the lumbar spine. There is m inimal retrolisthesis at L3-L4. Alignment is otherwise preserved. Small anterior and lateral marginal osteophytes are seen throughout. The transverse and spinous processes are intact. There is no spondy lolysis. No lytic or blastic lesion is seen. Mild facet arthropathy is noted in the lower lumbar teodora on. There is advanced disc space narrowing at L5-S1 with associated endplate sclerosis. Moderate disc space narrowing is seen at L3-L4 and L4-L5. Large posterior disc osteophyte complexes are seen at L3 -L4, L4-L5, and L5-S1. This contributes to multilevel central canal stenosis, and was also seen on th e 08/29/2017 MRI. Central canal stenosis is severe at L4-L5. Disc bulge is eccentric to the right at L3 -L4 and L4-L5 and causes severe right-sided neural foraminal narrowing at these levels and impinges o n the exiting right L3 and L4 nerve roots. The visualized sacrum and bony pelvis appear intact. There is fatty atrophy of the paraspinous musculature. Bilateral pleural effusions are partially imaged. T here is moderate atherosclerotic calcification of the abdominal aorta which is normal in caliber. IMPRESSION: 1. No acute bony abnormality is identified involving the lumbar spine. 2. Osteopenia and spondylotic change as above. See discussion. ACT 112: Negative or not required by law. Dictated: 10/16/2019 7:38 AM Transcribed: 10/16/2019 8:15 AM Luisa [id number] [email or web address] Electronically signed by: Brady Allison M.D. 10/16/2019 8:28 AM
[2019-10-16] MEDS: BRIMONIDINE TARTRATE 0.2% 5ML OPB SCH ×2 (08:30→21:02)
[2019-10-16] MEDS: FLUTICASONE/VILANTEROL 100/25MCG 14 PUFFS/INHALER INH SCH (08:31)
[2019-10-16] MEDS: INSULIN ASPART 100 UNITS/ML 3 ML PEN SC SCH ×4 (08:32→21:08)
[2019-10-16] MEDS: HEPARIN SOD 5,000 UNIT/0.5 ML VIAL SQ SCH ×2 (08:34→21:08)
[2019-10-16] MEDS: LIDOCAINE 5% 1 PATCH TD SCH (08:51)
--- NOTE | 2019-10-16 13:28 | Hospitalist Progress Note ---
Date of Service October 16, 2019 Assessment & Plan (1) Acute exacerbation of CHF (congestive heart failure): With volume overload Acute on chronic diastolic CHF, Pulm HTN ECHO 07/2019 with preserved EF, mild AI, mild MR, elevated RVSP give Bumex 2mg IV again today, Cr up slightly at 3.6 but tolerated the dose well baseline weight is 200lbs, ask aides to weigh daily, order written Continue strict I/Os, daily weights, low Na+ diet Continue aspirin 81 mg daily, and metoprolol tartrate 12.5 mg p.o. twice daily follow BMP in the morning appears to be approaching euvolemia (2) Cellulitis of both lower extremities: Cellulitis of bilateral lower extremities, left > right-improving daily Afebrile, no leukocytosis, not septic hardly any erythema today on exam, maybe minimal on the left -continue daptomycin IV and aztreonam IV. Continue to work on diuresis. -Checking wound culture from draining ulceration on the left leg plan for debridement of left leg wound tomorrow (3) Depression: Continue bupropion extended release 300 mg p.o. every morning (4) Rheumatoid arthritis: Continue prednisone 5 mg p.o. every morning. Monitor for potential need for stress dose steroids, vitals and electrolytes are stable (5) GERD (gastroesophageal reflux disease): Continue pantoprazole 40 mg every morning (6) Hypertension: controlled -continue metoprolol (7) Chronic kidney disease, stage V: Creatinine 3.53 upon admission, within her usual range. Remained stable at 3.6 today Continue sodium bicarbonate, iron sulfate, vitamin D3, and calcium carbonate Follow serial BMP Does not wish to pursue dialysis if renal failure worsens check BMP again tomorrow AM (8) Diabetes mellitus, type 2: Continue holding home Lantus 8 units subcu at bedtime Glucose controlled here Continue Accu-Cheks before meals and at bedtime with NovoLog coverage per scale (9) Asthma: Continue zafirlukast 20 mg every 12 hours, guaifenesin 1200 mg p.o. every 12 hours, and budesonide- formoterol HFA. no acute issues (10) History of DVT (deep vein thrombosis): h/o Protein S deficiency, cannot tolerate anticoag due to recurrent b leeding (11) Back pain: In the right mid to lower back paraspinous muscles, tender to palpation No previous imaging done Check CT of thoracic and lumbar spine -- no acute fractures, no compression fractures suspect this is due to muscular pain, spasms -Continue hydrocodone prn -Continue Tylenol prn, Voltaren gel as needed heating pad add on lidocaine patch (12) Abnormal ECG: serial trop negative, ST an TW changes lateral leads no chest pain, not concerning (13) Leg wound, left: Wound care consultation placed Continue OPTi foam Check wound culture (14) Wound of foot: As above (15) Open wound, hand: As above (16) DVT prophylaxis: Heparin SQ Dispo-continued stay, home in 2 days is likely PT/OT consults will be placed Admission and Anticipated Discharge Date Admission Date: October 13, 2019 Subjective patient sitting up in a chair, feeling much better compared to admission her breathing is improved, still c/o swelling in legs redness in her legs is dramatically better according to both her and her daughter at the bedside d/w community center director, she is requesting wound care provider consult for debridement, will obtain tomorrow reviewed labs, WBC, Hb and plts all stable, Cr up slightly at 3.6 but overall stable, better than time of admission will give another dose of Bumex 2mg today her daughter says her baseline weight is 200 lbs, will ask aides to weigh her daily to get accurate idea of volume status she is eating well her mobility is improving, she is working with therapy awaiting bowel movement Review of Systems Review of Systems: All systems reviewed & are unremarkable except as noted in Subjective Constitutional: no fever, no chills and no sweats Respiratory: no cough, no dyspnea and no dyspnea on exertion Cardiovascular: + edema; no chest pain and no palpitations Gastrointestinal: + constipation; no abdominal pain, no nausea, no vomiting and no diarrhea/loose stools Integumentary: + wounds (left medial lower leg); no erythema Physical Exam Constitutional: well developed, well nourished, + overweight and + edematous; no acute distress Eyes: PERRL, conjunctivae normal, anicteric sclerae ENMT: external ear and nose normal, oropharynx normal Neck: trachea midline, no thyromegaly Respiratory: normal respiratory effort, lungs clear to auscultation Cardiovascular: Rate/Rhythm: regular rate and regular rhythm Heart Sounds: normal S1 and normal S2; no murmur Vessels: no JVD Extremities: normal capillary refill and + edema (+ 1 bilaterally, non-pitting) Gastrointestinal (Abdomen): normal bowel sounds, soft, nontender, no hepatosplenomegaly Musculoskeletal: no cyanosis or clubbing, extremities motor strength 5/5 Skin: + wound (left medial lower leg, sloughing of skin); no rashes and no erythema Neurologic: patellar DTR's 2+ bilat, sensation intact and PERRL, EOMI, accommodation nl, no face palsy, no dysarthria Psychiatric: A+Ox3, euthymic affect Lymphatic: no cervical or axillary lymphadenopathy Results & Data Results & Data ([facility]) Vital Signs (Past 12 Hours) Vital Signs Temp Pulse Resp BP Pulse Ox 10/16/19 08:23 115/79 10/16/19 07:50 36.8 C 85 18 95 Laboratory Results Laboratory Results - last 24 hr 10/16/19 10/16/19 10/16/19 05:33 05:33 07:53 WBC 6.17 RBC 3.26 L Hgb 9.8 L Hct 31.5 L MCV 96.6 MCH 30.1 MCHC 31.1 L RDW Std Deviation 47.4 H RDW Coeff of Michelle 13.5 Plt Count 224 MPV 9.9 Immature Gran % (Auto) 0.3 Neut % (Auto) 62.5 Lymph % (Auto) 22.7 [place] % (Auto) 10.7 Eos % (Auto) 3.2 Baso % (Auto) 0.6 Neut # (Auto) 3.85 Lymph # (Auto) 1.40 [place] # (Auto) 0.66 H Eos # (Auto) 0.20 Baso # (Auto) 0.04 Immature Gran # (Auto) 0.02 Sodium 137 Potassium 3.6 Chloride 107 Carbon Dioxide 22 Anion Gap 8.0 BUN 42 H Creatinine 3.64 H Est Cr Clr Drug Dosing 13.8 Est GFR ( Amer) 12.8 Est GFR (Non-Af Amer) 11.1 BUN/Creatinine Ratio 11.5 Glucose 107 H POC Glucose 109 H Calcium 8.4 L Magnesium 1.8 Total Bilirubin 0.4 AST 12 L ALT 12 Alkaline Phosphatase 52 Total Protein 5.1 L Albumin 2.3 L Globulin 2.8 Albumin/Globulin Ratio 0.8 L 10/16/19 10/16/19 10/16/19 12:04 17:03 20:25 WBC RBC Hgb Hct MCV MCH MCHC RDW Std Deviation RDW Coeff of Michelle Plt Count MPV Immature Gran % (Auto) Neut % (Auto) Lymph % (Auto) [place] % (Auto) Eos % (Auto) Baso % (Auto) Neut # (Auto) Lymph # (Auto) [place] # (Auto) Eos # (Auto) Baso # (Auto) Immature Gran # (Auto) Sodium Potassium Chloride Carbon Dioxide Anion Gap BUN Creatinine Est Cr Clr Drug Dosing Est GFR ( Amer) Est GFR (Non-Af Amer) BUN/Creatinine Ratio Glucose POC Glucose 126 H 155 H 161 H Calcium Magnesium Total Bilirubin AST ALT Alkaline Phosphatase Total Protein Albumin Globulin Albumin/Globulin Ratio Medications Administered Current Inpatient Medications Acetaminophen (Acetaminophen 325 Mg Tab) 650 mg PO Q8H PRN PRN Reason: Pain or Fever Stop: 11/13/19 01:32 Last Admin: 10/15/19 09:07 Dose: 650 mg Documented by: Hydrocodone Bitart/Acetaminophen (Hydrocodone/Acetamophen 5/325mg Tab) 1 tab PO Q6H PRN PRN Reason: Pain Stop: 10/28/19 16:59 Last Admin: 10/16/19 19:47 Dose: 1 tab Documented by: Al Hydrox/Mg Hydrox/Simethicone (Aluminum/Magnesium Susp 30 Ml Udc) 15 ml PO Q4H PRN PRN Reason: Dyspepsia Stop: 11/13/19 01:32 Albuterol (Albuterol Hfa 8 Gm Inhaler) 2 puffs INH QID PRN PRN Reason: Shortness Of Breath Or Wheezin Stop: 11/13/19 08:59 Last Admin: 10/14/19 05:12 Dose: 2 puffs Documented by: Anastrozole (Anastrozole 1 Mg Tab) 1 mg PO QPM JESSICA Stop: 11/13/19 20:59 Last Admin: 10/16/19 21:08 Dose: 1 mg Documented by: Aspirin (Aspirin 81 Mg Ectab) 81 mg PO QPM JESSICA Stop: 11/13/19 20:59 Last Admin: 10/16/19 21:05 Dose: 81 mg Documented by: Aztreonam (Aztreonam Consult Active) 1 ea N/A UD PRN PRN Reason: Consult Stop: 11/13/19 02:08 Brimonidine Tartrate (Brimonidine Tartrate 0.2% 5ml) 1 drops OPB BID [facility] Stop: 11/13/19 01:32 Last Admin: 10/16/19 21:02 Dose: 1 drops Documented by: Bupropion HCl (Bupropion Xl 300 Mg Tabcr) 300 mg PO QAM [facility] Stop: 11/13/19 08:59 Last Admin: 10/16/19 08:27 Dose: 300 mg Documented by: Calcium Carbonate (Calcium Carbonate 1250mg Tab) 1,250 mg PO QPM JESSICA Stop: 11/13/19 20:59 Last Admin: 10/16/19 21:06 Dose: 1,250 mg Documented by: Dextrose (Dextrose 50% 50 Ml Syringe) 25 - 50 ml IV UD PRN; Protocol PRN Reason: Hypoglycemia Protocol Stop: 11/13/19 01:32 Diclofenac Sodium (Diclofenac Sod 1% Gel 100 Gm Tube) 2 gm EXT QID PRN PRN Reason: back pain Stop: 11/13/19 01:32 Last Admin: 10/16/19 21:28 Dose: 2 gm Documented by: Dorzolamide HCl (Dorzolamide Hcl 2% Oph Soln 10 Ml Btl) 1 drops OPR BID [facility] Stop: 11/13/19 01:32 Last Admin: 10/16/19 21:04 Dose: 1 drops Documented by: Ferrous Sulfate (Ferrous Sulfate 325 Mg Tab) 325 mg PO BID [facility] Stop: 11/13/19 01:32 Last Admin: 10/16/19 21:06 Dose: 325 mg Documented by: Fluticasone/Vilanterol (Fluticasone/Vilanterol 100/25mcg 14 Puffs/Inhaler) 1 puffs INH DAILY [facility]; Protocol Stop: 11/13/19 21:29 Last Admin: 10/16/19 08:31 Dose: 1 puffs Documented by: Glucagon (Glucagon For Inj 1 Mg Vial) 1 mg SQ UD PRN; Protocol PRN Reason: Hypoglycemia Protocol Stop: 11/13/19 01:32 Glucose (Glucose 10 Tabs/Tube) 4 - 8 tabs PO UD PRN; Protocol PRN Reason: Hypoglycemia Protocol Stop: 11/13/19 01:32 Glucose (Glucose 40% Gel 15 Gm Tube) 15 - 30 gm PO UD PRN; Protocol PRN Reason: Hypoglycemia Protocol Stop: 11/13/19 01:32 Guaifenesin (Guaifenesin 600 Mg Tabcr) 1,200 mg PO Q12 [facility] Stop: 11/13/19 08:59 Last Admin: 10/16/19 21:05 Dose: 1,200 mg Documented by: Heparin Sodium (Porcine) (Heparin 100 Unit/Ml 5ml Flush) 5 ml FLUSH PRN PRN PRN Reason: Flush Stop: 11/12/19 23:10 Last Admin: 10/16/19 11:17 Dose: 5 ml Documented by: Heparin Sodium (Porcine) (Heparin Sod 5,000 Unit/0.5 Ml Vial) 5,000 units SQ Q12 [facility] Stop: 11/13/19 20:59 Last Admin: 10/16/19 21:08 Dose: 5,000 units Documented by: Aztreonam 1,000 mg/ Dextrose 110 mls @ 100 mls/hr IV Q8H [facility]; Protocol Stop: 10/21/19 09:59 Last Infusion: 10/16/19 19:42 Dose: Infused Documented by: Daptomycin 300 mg/ Syringe 6 mls @ 3 mls/min IV Q48H [facility]; Protocol Stop: 10/20/19 21:59 Last Admin: 10/15/19 22:23 Dose: 3 mls/min Documented by: Insulin Aspart (Insulin Aspart 100 Units/Ml 3 Ml Pen) 0 units SC ACHS [facility] Stop: 11/13/19 07:29 Last Admin: 10/16/19 21:08 Dose: 1 units Documented by: Lidocaine (Lidocaine 5% 1 Patch) 1 patch TD QAM [facility] Stop: 11/14/19 14:29 Last Admin: 10/16/19 08:51 Dose: Not Given Documented by: Magnesium Hydroxide (Magnesium Hydroxide Susp 30 Ml Udc) 30 ml PO Q12H PRN PRN Reason: Constipation Stop: 11/13/19 01:32 Metoprolol Tartrate (Metoprolol Tartrate 25 Mg Tab) 12.5 mg PO BID [facility] Stop: 11/13/19 01:32 Last Admin: 10/16/19 21:05 Dose: 12.5 mg Documented by: Miconazole Nitrate (Miconazole Nitrate Powder 43 Gm) 1 appln EXT PRN PRN PRN Reason: Rash under skin folds Stop: 11/13/19 01:32 Miscellaneous (Carbohydrates For Hypoglycemia ) 15 - 30 gm PO UD PRN PRN Reason: Hypoglycemia Protocol Stop: 11/13/19 01:32 Miscellaneous (Remove Lidoderm Patch) 1 ea N/A DAILY@2100 [facility] Stop: 11/14/19 20:59 Last Admin: 10/16/19 21:04 Dose: 1 ea Documented by: Miscellaneous Information (Daptomycin Consult Active) 1 ea N/A UD PRN PRN Reason: Consult Stop: 11/12/19 22:53 Montelukast Sodium (Montelukast Sodium 10 Mg Tablet) 10 mg PO [facility] Stop: 11/13/19 01:32 Last Admin: 10/16/19 21:04 Dose: 10 mg Documented by: Multivitamins/Minerals (Cerovite Adv Formula Tab) 1 tab PO [facility] Stop: 11/13/19 08:59 Last Admin: 10/16/19 08:29 Dose: 1 tab Documented by: Ondansetron HCl (Ondansetron Inj 2 Mg/Ml 2 Ml Vial) 4 mg IV Q6H PRN PRN Reason: Nausea Stop: 11/13/19 01:32 Pantoprazole Sodium (Pantoprazole 40 Mg Tab) 40 mg PO [facility] Stop: 11/13/19 08:59 Last Admin: 10/16/19 08:28 Dose: 40 mg Documented by: Prednisone (Prednisone 5 Mg Tab) 5 mg PO [facility] Stop: 11/13/19 08:59 Last Admin: 10/16/19 08:28 Dose: 5 mg Documented by: Sodium Bicarbonate (Sodium Bicarbonate 650 Mg Tab) 650 mg PO BID [facility] Stop: 11/13/19 01:32 Last Admin: 10/16/19 21:05 Dose: 650 mg Documented by: Vitamin D (Cholecalciferol 1,000 Units 25 Mcg Tab) 5,000 units PO [facility] Stop: 11/13/19 08:59 Last Admin: 10/16/19 08:27 Dose: 5,000 units Documented by: PG Care Time/CCT Total # of Minutes Spent Total Time Spent with Patient: Total time spent is greater than 50% in coordination of care (as documented) at patient's floor/unit and/or counseling patient: Coding Level of Care Code 28969 Subseq Hosp Care Lvl 2 Diagnoses Acute exacerbation of CHF (congestive heart failure) I50.9 Heart failure type: unspecified Cellulitis of both lower extremities L03.115; L03.116 Depression F32.9 Rheumatoid arthritis M06.9 GERD (gastroesophageal reflux disease) K21.9 Hypertension I10 Chronic kidney disease, stage V N18.5 Diabetes mellitus, type 2 E11.9 Asthma J45.909 History of DVT (deep vein thrombosis) Z86.718 Back pain M54.9 Abnormal ECG R94.31 Leg wound, left S81.802A Wound of foot S91.309A Open wound, hand S61.409A DVT prophylaxis Z29.9 (1) Acute exacerbation of CHF (congestive heart failure) Heart failure type: unspecified Qualified Code(s): I50.9 - Heart failure, unspecified
[2019-10-16] MEDS ORDERED: BUMETANIDE 2 MG in SYRINGE 0 ML IV ONE (13:30)
[2019-10-16] MEDS: HYDROCODONE/ACETAMOPHEN 5/325MG TAB PO PRN (19:47)
[2019-10-16] MEDS: MONTELUKAST SODIUM 10 MG TABLET PO SCH (21:04)
[2019-10-16] MEDS: ASPIRIN 81 MG ECTAB PO SCH (21:05)
[2019-10-16] MEDS: CALCIUM CARBONATE 1250MG TAB PO SCH (21:06)
[2019-10-16] MEDS: ANASTROZOLE 1 MG TAB PO SCH (21:08)
[2019-10-16] MEDS: DICLOFENAC SOD 1% GEL 100 GM TUBE EXT PRN (21:28)
[2019-10-17] MEDS: AZTREONAM 1,000 MG in DEXTROSE 5% 100 ML IV SCH ×3 (02:51→17:05)
[2019-10-17] MEDS: HEPARIN 100 UNIT/ML 5ML FLUSH FLUSH PRN ×2 (04:01→05:27)
[2019-10-17 05:45] LABS: Hematocrit (blood only) 31.3 % (37-47); Hemoglobin 9.9 g/dL (12.0-16.0); Mean Corpuscular Hemoglobin 30.7 pg (25-34); Mean Corpuscular Hgb Conc 31.6 g/dL (32-36); Mean Corpuscular Volume 96.9 fL (80-100); Mean Platelet Volume 9.9 fL (7.4-10.4); Platelet Count 209 K/uL (130-400); RDW Coefficient of Variation 13.6 % (11.5-14.5); RDW Standard Deviation 48.3 fL (36.4-46.3); Red Blood Count 3.23 M/uL (4.2-5.4); White Blood Count 6.23 K/uL (4.8-10.8)
[2019-10-17] MEDS: ALBUTEROL HFA 8 GM INHALER INH PRN ×2 (08:00→20:45)
[2019-10-17] MEDS: CHOLECALCIFEROL 1,000 UNITS 25 MCG TAB PO SCH (09:02)
[2019-10-17] MEDS: CEROVITE ADV FORMULA TAB PO SCH (09:02)
[2019-10-17] MEDS: PANTOprazole 40 MG TAB PO SCH (09:02)
[2019-10-17] MEDS: guaiFENesin 600 MG TABCR PO SCH ×2 (09:03→20:38)
[2019-10-17] MEDS: predniSONE 5 MG TAB PO SCH (09:03)
[2019-10-17] MEDS: FERROUS SULFATE 325 MG TAB PO SCH ×2 (09:03→20:40)
[2019-10-17] MEDS: SODIUM BICARBONATE 650 MG TAB PO SCH ×2 (09:03→20:40)
[2019-10-17] MEDS: BuPROPion XL 300 MG TABCR PO SCH (09:04)
[2019-10-17] MEDS: METOPROLOL TARTRATE 25 MG TAB PO SCH ×2 (09:04→20:38)
[2019-10-17] MEDS: BRIMONIDINE TARTRATE 0.2% 5ML OPB SCH ×2 (09:05→20:41)
[2019-10-17] MEDS: DORZOLAMIDE HCL 2% OPH SOLN 10 ML BTL OPR SCH ×2 (09:05→20:42)
[2019-10-17] MEDS: LIDOCAINE 5% 1 PATCH TD SCH (09:05)
[2019-10-17] MEDS: FLUTICASONE/VILANTEROL 100/25MCG 14 PUFFS/INHALER INH SCH (09:11)
[2019-10-17] MEDS: INSULIN ASPART 100 UNITS/ML 3 ML PEN SC SCH ×4 (09:13→20:49)
[2019-10-17] MEDS: HEPARIN SOD 5,000 UNIT/0.5 ML VIAL SQ SCH ×2 (09:13→20:41)
--- NOTE | 2019-10-17 13:44 | Wound Consultation ---
Date of Consultation October 17, 2019 Assessment & Plan (1) Venous stasis ulcer of left lower leg with edema of left lower leg: Is an 79-year-old female with venous stasis ulcer of the left lower leg in the setting of cellulitis and heart failure. Wound debridement. Was Xylocaine was applied. After obtaining permission and using a curette, the wound was debrided of fibrin and slough. Scant bleeding was controlled with pressure. Patient tolerated the procedure well with no complications. This represents non-excisional debridement less than 20 cm. Will be dressed with Aquacel Ag. Agree with continued diuresis. When patient's heart failure has improved could consider applying compression dressing. (2) Wound of foot: Patient with a traumatic wound of her left second toe in the setting of heart failure and questionable cellulitis. No debridement was required. Will be dressed with Aquacel Ag. Patient is complaining of bilateral heel pain. 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 (3) Open wound, hand: Patient with a traumatic open wound of her right hand. No debridement was required. Wound was dressed with Aquacel Ag. Thank you for allow me to participate in the care of this patient. Please call with any questions. History of Present Illness Reason for Consultation: Leg wound Attending Physician: Ottoniel Chun, History of Present Illness This is an 79-year-old female with a history of congestive heart failure, history of CVA, protein S deficiency, anemia, GERD, rheumatoid arthritis, ulcerative colitis, type 2 diabetes, CKD stage V vitamin D deficiency who was admitted with heart failure. Patient was found to also have bilateral cellulitis of her legs. Currently she is on daptomycin and aztreonam. Patient has a wound of her left leg, her left second toe on her right hand. She denies fevers or chills. She has no new complaints. Allergies Allergy/AdvReac Type Severity Reaction Status Date / Time Bactrim Allergy Severe dizzy,dyseq Verified 10/26/17 14:59 uilibrium bee venom protein (honey bee) Allergy Severe ANAPHYLAXIS Verified 10/13/19 19:30 cefaclor Allergy Severe stiff and Verified 10/13/19 19:30 sore muscles-PT DENIES lisinopril Allergy Severe tongue Verified 10/13/19 19:30 swelling diltiazem Allergy Intermediate rash Verified 10/13/19 19:30 Penicillins Allergy Mild RASH Verified 10/13/19 19:31 tetracycline Allergy Mild UNK-PT Verified 10/13/19 19:31 DENIES amoxicillin Allergy Unknown RASH Verified 10/13/19 19:31 baclofen Allergy Unknown Unknown Verified 10/13/19 19:32 cefuroxime Allergy Unknown TAST Verified 10/13/19 19:32 clavulanic acid Allergy Unknown ITCHING Verified 10/13/19 19:32 levofloxacin Allergy Unknown NAUSEA, Verified 10/13/19 19:32 DIZZINESS alendronate sodium AdvReac Intermediate FELT SICK Verified 10/13/19 19:33 Cipro AdvReac Intermediate LEGS ARMS Verified 10/26/17 14:59 STIFF, PAINFUL ciprofloxacin AdvReac Intermediate LEGS ARMS Verified 10/13/19 19:33 STIFF, PAINFUL doxycycline AdvReac Intermediate nausea and Verified 10/13/19 19:33 vomiting metformin AdvReac Intermediate CAUSED Verified 10/13/19 19:33 [employer] LACTIC ACID LEVELS tramadol AdvReac Intermediate DIZZINESS Verified 10/13/19 19:34 adhesive AdvReac Mild redness Verified 10/13/19 19:34 mercaptopurine AdvReac Mild MADE HER Verified 10/13/19 19:34 VERY ILL olmesartan AdvReac Mild HEADACHE Verified 10/13/19 19:34 Sulfa (Sulfonamide AdvReac Mild CAUSED Verified 10/13/19 19:35 Antibiotics) DIZZINESS sulfamethoxazole AdvReac Mild CAUSED Verified 10/13/19 19:35 DIZZINESS trimethoprim AdvReac Mild BACTRIM Verified 10/13/19 19:35 CAUSED DIZZINESS aspirin AdvReac Unknown CAUSES Verified 10/13/19 19:35 BRUISING Home Medications Home Medications Medication Instructions Recorded Confirmed Type Jerri Thorpear U-100 Insulin 8 unit SUBCUT HS 11/22/17 10/13/19 History anastrozole 1 mg PO QPM 11/22/17 10/13/19 History aspirin [Aspirin Low Dose] 81 mg PO QPM 11/22/17 10/13/19 History calcium carbonate-vitamin D3 1 tab PO QPM 11/22/17 10/13/19 History [Os-Conrad 500 + D3] cholecalciferol (vitamin D3) 5,000 unit PO QAM 11/22/17 10/13/19 History metoprolol tartrate 12.5 mg PO BID 11/22/17 10/13/19 History multivitamin with minerals 1 tab PO QAM 11/22/17 10/13/19 History pantoprazole 40 mg PO QAM 11/22/17 10/13/19 History prednisone 5 mg PO QAM 11/22/17 10/13/19 History brimonidine 1 drp OPB BID 06/22/18 10/13/19 History dorzolamide 1 drp OPR BID 06/22/18 10/13/19 History ferrous sulfate 325 mg PO BID #0 tab 06/25/18 10/13/19 Rx budesonide-formoterol HFA 80 2 puff INHALATION BID #3 inhaler 02/01/19 10/13/19 Rx mcg-4.5 mcg/actuation aerosol inhaler zafirlukast 20 mg tablet 20 mg PO Q12H #180 tab 02/01/19 10/13/19 Rx albuterol sulfate 90 mcg/actuation 2 - 4 puff INHALATION QID PRN #3 02/15/19 10/13/19 Rx aerosol inhaler inhaler bupropion HCl 300 mg 24 hr tablet, 300 mg PO QAM tab 03/06/19 10/13/19 History extended release acetaminophen [Tylenol Extra 500 mg PO Q6H PRN 08/25/19 10/13/19 History Strength] diclofenac sodium [Voltaren] 2 g EXT QID PRN #100 gm 08/31/19 10/13/19 Rx guaifenesin [Mucinex] 1,200 mg PO Q12 #30 tab 08/31/19 10/13/19 Rx miconazole nitrate [Desenex] 1 applic EXT PRN PRN #43 gm 08/31/19 10/13/19 Rx sodium bicarbonate 650 mg tablet 650 mg PO BID tab 09/13/19 10/13/19 History bumetanide 1 mg PO DAILY PRN 10/13/19 10/13/19 History Patient History Medical History Acute osteomyelitis (06/05/01) "MRSA of the thoracic spine " On 02/05/12 10:49 Wilfredo Melendez wrote "MRSA of the thoracic spine " Asthma Breast cancer, left breast X2--1ST)2005 2)2012---SX,RADIATION Chronic back pain Chronic kidney disease, stage V CKD (chronic kidney disease) Deep vein thrombosis L LEG Fibromyalgia GERD (gastroesophageal reflux disease) Glaucoma BILT EYES Hyperlipidemia Hypertension Pneumonia, organism unspecified (02/05/12) Protein S deficiency Rheumatoid arthritis Spinal stenosis Stroke 07/2017--DIFFICULTY WALKING Trigeminal neuralgia Ulcerative colitis Vitamin D deficiency Surgical History H/O bilateral cataract extraction H/O right inguinal hernia repair History of appendectomy History of bowel resection 1993 WITH ILEOSTOMY @ [facility] [place] History of breast biopsy LEFT MALIGNANT X2 History of colonoscopy History of esophagogastroduodenoscopy (EGD) History of gastric surgery 2012---ABCESS ON STOMACH WALL History of lumpectomy of left breast X2 2005 WITH LYMPH NODE REMOVAL, 2012 History of tooth extraction ALL TEETH Family History Brother Family history of diabetes mellitus 2 BROTHERS Mother Family hx of colon cancer Father Family hx of colon cancer Social History Smoking Status: Former smoker Tobacco Type: Cigarettes Second Hand Exposure: Yes ( SMOKED); Hx Alcohol Use: No Hx Substance Use: No Preferred Language: Syriac Communication Ability: Effective Horse Race Timer Required: No Beliefs That Will Affect Care: None marital status: Current Living Situation: Spouse Current Living Situation Comment: Patient lives w/ . Feels Safe at Home: Yes Review of Systems Review of Systems: All systems reviewed & are unremarkable except as noted in HPI & below Physical Exam Physical Exam: Temp Pulse Resp BP Pulse Ox 36.4 C L 85 16 122/80 95 10/17/19 08:22 10/17/19 09:08 10/17/19 08:22 10/17/19 09:08 10/17/19 08:22 Constitutional: WD/WN, vitals as above Eyes: PERRL, conjunctivae normal, anicteric sclerae ENMT: external ear and nose normal, oropharynx normal Ears: no hearing impairment Skin: Wound 1, left [place]jo measuring 4.5 x 4.1 x 0.3 cm. Wound is covered with fibrin and slough. Periwound is intact with mild erythema. There is moderate drainage no foul odors. Wound #2, left second toe measuring 1.1 x 1.3 5.1 cm. Wound is covered with fibrin and slough. Periwound is erythematous. There is moderate drainage no foul odor. Wound #3, right hand measuring 2.1 x 1 x 0.1 cm. Wound is covered with fibrin and slough. Periwound is intact without inflammation. There is moderate drainage and no foul odors. Neurologic: awake; not confused Psychiatric: A+Ox3, euthymic affect Results & Data ([facility]) Vital Signs (Past 12 Hours) Vital Signs Temp Pulse Resp BP Pulse Ox 10/17/19 09:08 85 122/80 10/17/19 08:22 36.4 C L 85 16 95 10/17/19 08:01 88 20 95 Laboratory Results 10/17/19 10/17/19 10/17/19 Range/Units 13:18 11:51 08:21 WBC (4.8-10.8) K/uL RBC (4.2-5.4) M/uL Hgb (12.0-16.0) g/dL Hct (37-47) % MCV (80-100) fL MCH (25-34) pg MCHC (32-36) g/dL RDW Std Deviation (36.4-46.3) fL RDW Coeff of Michelle (11.5-14.5) % Plt Count (130-400) K/uL MPV (7.4-10.4) fL Sodium Pending Potassium Pending Chloride Pending Carbon Dioxide Pending Anion Gap Pending BUN Pending Creatinine Pending Est Cr Clr Drug Dosing Pending Est GFR ( Amer) Pending Est GFR (Non-Af Amer) Pending BUN/Creatinine Ratio Pending Glucose Pending POC Glucose 111 H 114 H (70-99) mg/dl Calcium Pending 10/17/19 10/16/19 10/16/19 Range/Units 05:25 20:25 17:03 WBC 6.23 (4.8-10.8) K/uL RBC 3.23 L (4.2-5.4) M/uL Hgb 9.9 L (12.0-16.0) g/dL Hct 31.3 L (37-47) % MCV 96.9 (80-100) fL MCH 30.7 (25-34) pg MCHC 31.6 L (32-36) g/dL RDW Std Deviation 48.3 H (36.4-46.3) fL RDW Coeff of Michelle 13.6 (11.5-14.5) % Plt Count 209 (130-400) K/uL MPV 9.9 (7.4-10.4) fL Sodium Potassium Chloride Carbon Dioxide Anion Gap BUN Creatinine Est Cr Clr Drug Dosing Est GFR ( Amer) Est GFR (Non-Af Amer) BUN/Creatinine Ratio Glucose POC Glucose 161 H 155 H (70-99) mg/dl Calcium PG Care Time/CCT Total # of Minutes Spent Total Time Spent with Patient: Total time spent is greater than 50% in coordination of care (as documented) at patient's floor/unit and/or counseling patient: Coding Level of Care Code 79179 Inpt Consult Level 3 Diagnoses Venous stasis ulcer of left lower leg with edema of left lower leg I83.029; I83.892; L97.929; R60.9 Wound of foot S91.309A Open wound, hand S61.409A
[2019-10-17 14:03] LABS: BUN Creatinine Ratio 11.9 (10-20); Calcium 8.9 mg/dl (8.5-10.1); Creatinine Clr Calc Pharmacy 12.8 ml/min; Est GFR (African American) 11.7; Est GFR (Non-African American) 10.1; Potassium 4.2 mmol/L (3.5-5.1)
[2019-10-17] MEDS: DICLOFENAC SOD 1% GEL 100 GM TUBE EXT PRN (14:37)
[2019-10-17] MEDS ORDERED: BUMETANIDE 3 MG in SYRINGE 0 ML IV ONE (16:45)
--- NOTE | 2019-10-17 17:20 | Hospitalist Progress Note ---
Date of Service October 17, 2019 Assessment & Plan (1) Acute exacerbation of CHF (congestive heart failure): With volume overload Acute on chronic diastolic CHF, Pulm HTN (pulmonary pressures 40-60mmHg) likely a degree of right heart failure which will make it difficult to remove fluid ECHO 07/2019 with preserved EF, mild AI, mild MR, elevated RVSP weight is 210lbs, she said this is up from a month ago when weight was 207lbs Cr is 3.9 will give Bumex 3gm IV today, start on Bumex 2gm IV BID tomorrow Continue strict I/Os, daily weights, low Na+ diet Continue aspirin 81 mg daily, and metoprolol tartrate 12.5 mg p.o. twice daily follow BMP in the morning (2) Chronic kidney disease, stage V: Creatinine 3.53 upon admission, within her usual range. going up to 3.9 today with diuresis Continue sodium bicarbonate, iron sulfate, vitamin D3, and calcium carbonate Follow serial BMP Does not wish to pursue dialysis if renal failure worsens check BMP daily (3) Cellulitis of both lower extremities: Cellulitis of bilateral lower extremities, left > right-improving daily Afebrile, no leukocytosis, not septic hardly any erythema today on exam, maybe minimal on the left -continue aztreonam IV, stop Daptomycin Continue to work on diuresis. -Checking wound culture from draining ulceration on the left leg left leg wound with soft debridement today (4) Depression: Continue bupropion extended release 300 mg p.o. every morning (5) Rheumatoid arthritis: Continue prednisone 5 mg p.o. every morning. Monitor for potential need for stress dose steroids, vitals and electrolytes are stable (6) GERD (gastroesophageal reflux disease): Continue pantoprazole 40 mg every morning (7) Hypertension: controlled -continue metoprolol (8) Diabetes mellitus, type 2: Continue holding home Lantus 8 units subcu at bedtime Glucose controlled here Continue Accu-Cheks before meals and at bedtime with NovoLog coverage per scale (9) Asthma: Continue zafirlukast 20 mg every 12 hours, guaifenesin 1200 mg p.o. every 12 hours, and budesonide- formoterol HFA. no acute issues (10) History of DVT (deep vein thrombosis): h/o Protein S deficiency, cannot tolerate anticoag due to recurrent bleeding (11) Back pain: In the right mid to lower back paraspinous muscles, tender to palpation No previous imaging done Check CT of thoracic and lumbar spine -- no acute fractures, no compression fractures suspect this is due to muscular pain, spasms -Continue hydrocodone prn -Continue Tylenol prn, Voltaren gel as needed heating pad add on lidocaine patch (12) Abnormal ECG: serial trop negative, ST an TW changes lateral leads no chest pain, not concerning (13) Leg wound, left: Wound care consultation placed Continue OPTi foam Check wound culture (14) Wound of foot: As above (15) Open wound, hand: As above (16) DVT prophylaxis: Heparin SQ Dispo-continued stay, try to diurese with higher doses of Bumex PT/OT consults will be placed Admission and Anticipated Discharge Date Admission Date: October 13, 2019 Subjective patient doing okay today, had debridement at the bedside with Dr. Thompson eating well, drinking well Cr up to 3.9, more tense edema in the legs d/w Dr. Reyes, her outpatient vehicle dynamics engineer to discuss potential diuretic therapy will try Bumex 3mg IV today since it is late in the day and go with a regimen of 2mg IV BID the issue is that she has pulmonary HTN, likely some degree of right heart failure Review of Systems Review of Systems: All systems reviewed & are unremarkable except as noted in Subjective Respiratory: + dyspnea on exertion Cardiovascular: + edema Gastrointestinal: no abdominal pain, no nausea, no vomiting, no constipation and no diarrhea/loose stools Physical Exam Constitutional: well developed, well nourished, + overweight and + edematous; no acute distress Eyes: PERRL, conjunctivae normal, anicteric sclerae ENMT: external ear and nose normal, oropharynx normal Neck: trachea midline, no thyromegaly Respiratory: normal respiratory effort, lungs clear to auscultation Cardiovascular: Rate/Rhythm: regular rate and regular rhythm Heart Sounds: normal S1 and normal S2; no murmur Vessels: no JVD Extremities: normal capillary refill and + edema (+2 bilaterally, non-pitting) Gastrointestinal (Abdomen): normal bowel sounds, soft, nontender, no hepatosplenomegaly Musculoskeletal: no cyanosis or clubbing, extremities motor strength 5/5 Skin: + wound (left medial lower leg, sloughing of skin); no rashes and no erythema Neurologic: patellar DTR's 2+ bilat, sensation intact and PERRL, EOMI, accommodation nl, no face palsy, no dysarthria Psychiatric: A+Ox3, euthymic affect Lymphatic: no cervical or axillary lymphadenopathy Results & Data Results & Data ([facility]) Vital Signs (Past 12 Hours) Vital Signs Temp Pulse Resp BP Pulse Ox 10/17/19 15:37 142/86 H 10/17/19 15:32 36.3 C L 80 18 97 10/17/19 09:08 85 122/80 10/17/19 08:22 36.4 C L 85 16 95 10/17/19 08:01 88 20 95 Laboratory Results Laboratory Results - last 24 hr 10/17/19 10/17/19 10/17/19 08:21 11:51 13:18 Sodium 135 L Potassium 4.2 D Chloride 104 Carbon Dioxide 21 Anion Gap 10.0 BUN 47 H Creatinine 3.93 H Est Cr Clr Drug Dosing 12.8 Est GFR ( Amer) 11.7 Est GFR (Non-Af Amer) 10.1 BUN/Creatinine Ratio 11.9 Glucose 167 H POC Glucose 114 H 111 H Calcium 8.9 10/17/19 10/17/19 10/18/19 17:08 20:49 05:47 Sodium Potassium Chloride Carbon Dioxide Anion Gap BUN Creatinine 3.85 H Est Cr Clr Drug Dosing 13.1 Est GFR ( Amer) 12.0 Est GFR (Non-Af Amer) 10.3 BUN/Creatinine Ratio Glucose POC Glucose 151 H 128 H Calcium Medications Administered Current Inpatient Medications Acetaminophen (Acetaminophen 325 Mg Tab) 650 mg PO Q8H PRN PRN Reason: Pain or Fever Stop: 11/13/19 01:32 Last Admin: 10/15/19 09:07 Dose: 650 mg Documented by: Hydrocodone Bitart/Acetaminophen (Hydrocodone/Acetamophen 5/325mg Tab) 1 tab PO Q6H PRN PRN Reason: Pain Stop: 10/28/19 16:59 Last Admin: 10/17/19 20:19 Dose: 1 tab Documented by: Al Hydrox/Mg Hydrox/Simethicone (Aluminum/Magnesium Susp 30 Ml Udc) 15 ml PO Q4H PRN PRN Reason: Dyspepsia Stop: 11/13/19 01:32 Albuterol (Albuterol Hfa 8 Gm Inhaler) 2 puffs INH QID PRN PRN Reason: Shortness Of Breath Or Wheezin Stop: 11/13/19 08:59 Last Admin: 10/17/19 20:45 Dose: 2 puffs Documented by: Anastrozole (Anastrozole 1 Mg Tab) 1 mg PO QPM COUNT INCLUDES THE [facility] Stop: 11/13/19 20:59 Last Admin: 10/17/19 20:39 Dose: 1 mg Documented by: Aspirin (Aspirin 81 Mg Ectab) 81 mg PO QPM JESSICA Stop: 11/13/19 20:59 Last Admin: 10/17/19 20:39 Dose: 81 mg Documented by: Aztreonam (Aztreonam Consult Active) 1 ea N/A UD PRN PRN Reason: Consult Stop: 11/13/19 02:08 Brimonidine Tartrate (Brimonidine Tartrate 0.2% 5ml) 1 drops OPB BID COUNT INCLUDES THE [facility] Stop: 11/13/19 01:32 Last Admin: 10/17/19 20:41 Dose: 1 drops Documented by: Bupropion HCl (Bupropion Xl 300 Mg Tabcr) 300 mg PO QAM COUNT INCLUDES THE [facility] Stop: 11/13/19 08:59 Last Admin: 10/17/19 09:04 Dose: 300 mg Documented by: Calcium Carbonate (Calcium Carbonate 1250mg Tab) 1,250 mg PO QPM COUNT INCLUDES THE [facility] Stop: 11/13/19 20:59 Last Admin: 10/17/19 20:38 Dose: 1,250 mg Documented by: Dextrose (Dextrose 50% 50 Ml Syringe) 25 - 50 ml IV UD PRN; Protocol PRN Reason: Hypoglycemia Protocol Stop: 11/13/19 01:32 Diclofenac Sodium (Diclofenac Sod 1% Gel 100 Gm Tube) 2 gm EXT QID PRN PRN Reason: back pain Stop: 11/13/19 01:32 Last Admin: 10/18/19 00:21 Dose: 2 gm Documented by: Dorzolamide HCl (Dorzolamide Hcl 2% Oph Soln 10 Ml Btl) 1 drops OPR BID COUNT INCLUDES THE [facility] Stop: 11/13/19 01:32 Last Admin: 10/17/19 20:42 Dose: 1 drops Documented by: Ferrous Sulfate (Ferrous Sulfate 325 Mg Tab) 325 mg PO BID COUNT INCLUDES THE [facility] Stop: 11/13/19 01:32 Last Admin: 10/17/19 20:40 Dose: 325 mg Documented by: Fluticasone/Vilanterol (Fluticasone/Vilanterol 100/25mcg 14 Puffs/Inhaler) 1 puffs INH DAILY COUNT INCLUDES THE [facility]; Protocol Stop: 11/13/19 21:29 Last Admin: 10/17/19 09:11 Dose: 1 puffs Documented by: Glucagon (Glucagon For Inj 1 Mg Vial) 1 mg SQ UD PRN; Protocol PRN Reason: Hypoglycemia Protocol Stop: 11/13/19 01:32 Glucose (Glucose 10 Tabs/Tube) 4 - 8 tabs PO UD PRN; Protocol PRN Reason: Hypoglycemia Protocol Stop: 11/13/19 01:32 Glucose (Glucose 40% Gel 15 Gm Tube) 15 - 30 gm PO UD PRN; Protocol PRN Reason: Hypoglycemia Protocol Stop: 11/13/19 01:32 Guaifenesin (Guaifenesin 600 Mg Tabcr) 1,200 mg PO Q12 COUNT INCLUDES THE [facility] Stop: 11/13/19 08:59 Last Admin: 10/17/19 20:38 Dose: 1,200 mg Documented by: Heparin Sodium (Porcine) (Heparin 100 Unit/Ml 5ml Flush) 5 ml FLUSH PRN PRN PRN Reason: Flush Stop: 11/12/19 23:10 Last Admin: 10/18/19 02:38 Dose: 5 ml Documented by: Heparin Sodium (Porcine) (Heparin Sod 5,000 Unit/0.5 Ml Vial) 5,000 units SQ Q12 COUNT INCLUDES THE [facility] Stop: 11/13/19 20:59 Last Admin: 10/17/19 20:41 Dose: 5,000 units Documented by: Aztreonam 1,000 mg/ Dextrose 110 mls @ 100 mls/hr IV Q8H COUNT INCLUDES THE [facility]; Protocol Stop: 10/21/19 09:59 Last Infusion: 10/18/19 02:43 Dose: Infused Documented by: Insulin Aspart (Insulin Aspart 100 Units/Ml 3 Ml Pen) 0 units SC ACHS COUNT INCLUDES THE [facility] Stop: 11/13/19 07:29 Last Admin: 10/17/19 20:49 Dose: Not Given Documented by: Lidocaine (Lidocaine 5% 1 Patch) 1 patch TD QAM COUNT INCLUDES THE [facility] Stop: 11/14/19 14:29 Last Admin: 10/17/19 09:05 Dose: 1 patch Documented by: Magnesium Hydroxide (Magnesium Hydroxide Susp 30 Ml Udc) 30 ml PO Q12H PRN PRN Reason: Constipation Stop: 11/13/19 01:32 Metoprolol Tartrate (Metoprolol Tartrate 25 Mg Tab) 12.5 mg PO BID COUNT INCLUDES THE [facility] Stop: 11/13/19 01:32 Last Admin: 10/17/19 20:38 Dose: 12.5 mg Documented by: Miconazole Nitrate (Miconazole Nitrate Powder 43 Gm) 1 appln EXT PRN PRN PRN Reason: Rash under skin folds Stop: 11/13/19 01:32 Miscellaneous (Carbohydrates For Hypoglycemia ) 15 - 30 gm PO UD PRN PRN Reason: Hypoglycemia Protocol Stop: 11/13/19 01:32 Miscellaneous (Remove Lidoderm Patch) 1 ea N/A DAILY@2100 COUNT INCLUDES THE [facility] Stop: 11/14/19 20:59 Last Admin: 10/17/19 20:40 Dose: 1 ea Documented by: Montelukast Sodium (Montelukast Sodium 10 Mg Tablet) 10 mg PO HS COUNT INCLUDES THE [facility] Stop: 11/13/19 01:32 Last Admin: 10/17/19 20:39 Dose: 10 mg Documented by: Multivitamins/Minerals (Cerovite Adv Formula Tab) [facility] [place]: 11/13/19 08:59 Last Admin: 10/17/19 09:02 Dose: 1 tab Documented by: Ondansetron HCl (Ondansetron Inj 2 Mg/Ml 2 Ml Vial) 4 mg IV Q6H PRN PRN Reason: Nausea Stop: 11/13/19 01:32 Pantoprazole Sodium (Pantoprazole 40 Mg Tab) 40 mg PO [facility] Stop: 11/13/19 08:59 Last Admin: 10/17/19 09:02 Dose: 40 mg Documented by: Prednisone (Prednisone 5 Mg Tab) [facility] [place]: 11/13/19 08:59 Last Admin: 10/17/19 09:03 Dose: 5 mg Documented by: Sodium Bicarbonate (Sodium Bicarbonate 650 Mg Tab) 650 mg PO BID COUNT INCLUDES THE [facility] Stop: 11/13/19 01:32 Last Admin: 10/17/19 20:40 Dose: 650 mg Documented by: Vitamin D (Cholecalciferol 1,000 Units 25 Mcg Tab) 5,000 [facility] [place]: 11/13/19 08:59 Last Admin: 10/17/19 09:02 Dose: 5,000 units Documented by: PG Care Time/CCT Total # of Minutes Spent Total Time Spent: 32 Total Time Spent with Patient: Total time spent is greater than 50% in coordination of care (as documented) at patient's floor/unit and/or counseling patient: Coding Level of Care Code 77420 Subseq Hosp Care Lvl 3 Diagnoses Acute exacerbation of CHF (congestive heart failure) I50.9 Heart failure type: unspecified Chronic kidney disease, stage V N18.5 Cellulitis of both lower extremities L03.115; L03.116 Depression F32.9 Rheumatoid arthritis M06.9 GERD (gastroesophageal reflux disease) K21.9 Hypertension I10 Diabetes mellitus, type 2 E11.9 Asthma J45.909 History of DVT (deep vein thrombosis) Z86.718 Back pain M54.9 Abnormal ECG R94.31 Leg wound, left S81.802A Wound of foot S91.309A Open wound, hand S61.409A DVT prophylaxis Z29.9 (1) Acute exacerbation of CHF (congestive heart failure) Heart failure type: unspecified Qualified Code(s): I50.9 - Heart failure, unspecified
[2019-10-17] MEDS: HYDROCODONE/ACETAMOPHEN 5/325MG TAB PO PRN (20:19)
[2019-10-17] MEDS: CALCIUM CARBONATE 1250MG TAB PO SCH (20:38)
[2019-10-17] MEDS: ANASTROZOLE 1 MG TAB PO SCH (20:39)
[2019-10-17] MEDS: MONTELUKAST SODIUM 10 MG TABLET PO SCH (20:39)
[2019-10-17] MEDS: ASPIRIN 81 MG ECTAB PO SCH (20:39)
[2019-10-18] MEDS: DICLOFENAC SOD 1% GEL 100 GM TUBE EXT PRN (00:21)
[2019-10-18] MEDS: AZTREONAM 1,000 MG in DEXTROSE 5% 100 ML IV SCH ×3 (01:35→17:51)
[2019-10-18] MEDS: HEPARIN 100 UNIT/ML 5ML FLUSH FLUSH PRN ×2 (02:38→11:30)
[2019-10-18 06:57] LABS: Creatinine Clr Calc Pharmacy 13.1 ml/min; Est GFR (Non-African American) 10.3
[2019-10-18] MEDS: BRIMONIDINE TARTRATE 0.2% 5ML OPB SCH ×2 (09:51→20:09)
[2019-10-18] MEDS: FLUTICASONE/VILANTEROL 100/25MCG 14 PUFFS/INHALER INH SCH (09:51)
[2019-10-18] MEDS: DORZOLAMIDE HCL 2% OPH SOLN 10 ML BTL OPR SCH ×2 (09:52→20:10)
[2019-10-18] MEDS: METOPROLOL TARTRATE 25 MG TAB PO SCH ×2 (09:52→20:09)
[2019-10-18] MEDS: CHOLECALCIFEROL 1,000 UNITS 25 MCG TAB PO SCH (09:53)
[2019-10-18] MEDS: guaiFENesin 600 MG TABCR PO SCH ×2 (09:53→20:08)
[2019-10-18] MEDS: HEPARIN SOD 5,000 UNIT/0.5 ML VIAL SQ SCH ×2 (09:53→20:13)
[2019-10-18] MEDS: FERROUS SULFATE 325 MG TAB PO SCH ×2 (09:53→20:09)
[2019-10-18] MEDS: CEROVITE ADV FORMULA TAB PO SCH (09:53)
[2019-10-18] MEDS: predniSONE 5 MG TAB PO SCH (09:53)
[2019-10-18] MEDS: SODIUM BICARBONATE 650 MG TAB PO SCH ×2 (09:53→20:08)
[2019-10-18] MEDS: PANTOprazole 40 MG TAB PO SCH (09:53)
[2019-10-18] MEDS: BuPROPion XL 300 MG TABCR PO SCH (09:54)
[2019-10-18] MEDS: LIDOCAINE 5% 1 PATCH TD SCH ×2 (09:54→13:41)
[2019-10-18] MEDS: INSULIN ASPART 100 UNITS/ML 3 ML PEN SC SCH ×4 (09:55→21:39)
[2019-10-18] MEDS ORDERED: BUMETANIDE 2 MG in SYRINGE 0 ML IV ONE (10:00)
[2019-10-18] MEDS ORDERED: BACLOFEN 10 MG TAB PO STA (13:48)
--- NOTE | 2019-10-18 17:00 | Hospitalist Progress Note ---
Date of Service October 18, 2019 Assessment & Plan (1) Acute exacerbation of CHF (congestive heart failure): With volume overload Acute on chronic diastolic CHF, Pulm HTN (pulmonary pressures 40-60mmHg) likely a degree of right heart failure which will make it difficult to remove fluid ECHO 07/2019 with preserved EF, mild AI, mild MR, elevated RVSP weight is 210lbs, she said this is up from a month ago when weight was 207lbs Cr is 3.85 will use Bumex 2gm IV BID Continue strict I/Os, daily weights, low Na+ diet Continue aspirin 81 mg daily, and metoprolol tartrate 12.5 mg p.o. twice daily follow BMP in the morning (2) Chronic kidney disease, stage V: Creatinine 3.53 upon admission, within her usual range. going up to 3.85 today with diuresis, Bumex 2gm IV q12 Continue sodium bicarbonate, iron sulfate, vitamin D3, and calcium carbonate Follow serial BMP Does not wish to pursue dialysis if renal failure worsens check BMP daily discussed today that aggressive diuresis may worsen renal function, may not be successful since pulmonary pressures are high (3) Cellulitis of both lower extremities: Cellulitis of bilateral lower extremities, left > right-improving daily Afebrile, no leukocytosis, not septic no erythema on right leg, no erythema on left leg -continue aztreonam IV, stop Daptomycin Continue to work on diuresis. -Checking wound culture from draining ulceration on the left leg left leg wound with soft debridement 10/16 allergies limits antibiotic choices will need to complete 14 days total treatment, likely to use Aztreonam (4) Depression: Continue bupropion extended release 300 mg p.o. every morning (5) Rheumatoid arthritis: Continue prednisone 5 mg p.o. every morning. Monitor for potential need for stress dose steroids, vitals and electrolytes are stable (6) GERD (gastroesophageal reflux disease): Continue pantoprazole 40 mg every morning (7) Hypertension: controlled -continue metoprolol (8) Diabetes mellitus, type 2: Continue holding home Lantus 8 units subcu at bedtime Glucose controlled here Continue Accu-Cheks before meals and at bedtime with NovoLog coverage per scale (9) Asthma: Continue zafirlukast 20 mg every 12 hours, guaifenesin 1200 mg p.o. every 12 hours, and budesonide- formoterol HFA. no acute issues (10) History of DVT (deep vein thrombosis): h/o Protein S deficiency, cannot tolerate anticoag due to recurrent bleeding (11) Back pain: In the right mid to lower back paraspinous muscles, tender to palpation No previous imaging done Check CT of thoracic and lumbar spine -- no acute fractures, no compression fractures suspect this is due to muscular pain, spasms -Continue hydrocodone prn -Continue Tylenol prn, Voltaren gel as needed heating pad add on lidocaine patch try low dose Baclofen 5mg one dose this afternoon, see how she tolerates (12) Abnormal ECG: serial trop negative, ST an TW changes lateral leads no chest pain, not concerning (13) Leg wound, left: Wound care consultation placed Continue OPTi foam Check wound culture (14) Wound of foot: As above (15) Open wound, hand: As above (16) DVT prophylaxis: Heparin SQ Dispo-continued stay, try to diurese with higher doses of Bumex PT/OT consults will be placed Admission and Anticipated Discharge Date Admission Date: October 13, 2019 Subjective patient still with edema, she is frustrated that her weight is going up we had a long discussion about her CKD stage V and her pulmonary hypertension explained that it can be very difficult to remove excess fluid when renal impairment is coupled with right heart failure will see how she responds to Bumex 2mg IV q12 she understands that it could worsen her renal function, may not have much success c/o right sided back pain, more in the paraspinal muscles will try Baclofen, it is listed as allergy but she cannot remember what happened will give very low dose at 5mg in the setting of CKD 5 Cr today is 3.85 after Bumex 3mg yesterday Review of Systems Review of Systems: All systems reviewed & are unremarkable except as noted in Subjective Constitutional: no fever, no fatigue and no weakness Respiratory: no cough and no dyspnea Cardiovascular: + edema; no chest pain Gastrointestinal: no abdominal pain, no nausea, no vomiting, no constipation and no diarrhea/loose stools Musculoskeletal: + back pain (right paraspinal muscles) Physical Exam Constitutional: well developed, well nourished, + overweight and + edematous; no acute distress Eyes: PERRL, conjunctivae normal, anicteric sclerae ENMT: external ear and nose normal, oropharynx normal Neck: trachea midline, no thyromegaly Respiratory: normal respiratory effort, lungs clear to auscultation Cardiovascular: Rate/Rhythm: regular rate and regular rhythm Heart Sounds: normal S1 and normal S2; no murmur Vessels: no JVD Extremities: normal capillary refill and + edema (+2 bilaterally, non-pitting) Gastrointestinal (Abdomen): normal bowel sounds, soft, nontender, no hepatosplenomegaly Musculoskeletal: no cyanosis or clubbing, extremities motor strength 5/5 (right paraspinal muscle tendernss in lumbar spine) Skin: + wound (left medial lower leg, sloughing of skin); no rashes and no erythema Neurologic: patellar DTR's 2+ bilat, sensation intact and PERRL, EOMI, accommodation nl, no face palsy, no dysarthria Psychiatric: A+Ox3, euthymic affect Lymphatic: no cervical or axillary lymphadenopathy Results & Data Results & Data ([facility]) Vital Signs (Past 12 Hours) Vital Signs Temp Pulse Resp Pulse Ox 10/18/19 15:49 36.4 C L 85 23 95 10/18/19 08:37 36.4 C L 82 18 96 Laboratory Results Laboratory Results - last 24 hr 10/17/19 10/17/19 10/18/19 17:08 20:49 05:47 Creatinine 3.85 H Est Cr Clr Drug Dosing 13.1 Est GFR ( Amer) 12.0 Est GFR (Non-Af Amer) 10.3 POC Glucose 151 H 128 H 10/18/19 10/18/19 08:24 12:27 Creatinine Est Cr Clr Drug Dosing Est GFR ( Amer) Est GFR (Non-Af Amer) POC Glucose 111 H 105 H Medications Administered Current Inpatient Medications Acetaminophen (Acetaminophen 325 Mg Tab) 650 mg PO Q8H PRN PRN Reason: Pain or Fever Stop: 11/13/19 01:32 Last Admin: 10/15/19 09:07 Dose: 650 mg Documented by: Hydrocodone Bitart/Acetaminophen (Hydrocodone/Acetamophen 5/325mg Tab) 1 tab PO Q6H PRN PRN Reason: Pain Stop: 10/28/19 16:59 Last Admin: 10/17/19 20:19 Dose: 1 tab Documented by: Al Hydrox/Mg Hydrox/Simethicone (Aluminum/Magnesium Susp 30 Ml Udc) 15 ml PO Q4H PRN PRN Reason: Dyspepsia Stop: 11/13/19 01:32 Albuterol (Albuterol Hfa 8 Gm Inhaler) 2 puffs INH QID PRN PRN Reason: Shortness Of Breath Or Wheezin Stop: 11/13/19 08:59 Last Admin: 10/17/19 20:45 Dose: 2 puffs Documented by: Anastrozole (Anastrozole 1 Mg Tab) 1 mg PO QPM JESSICA Stop: 11/13/19 20:59 Last Admin: 10/17/19 20:39 Dose: 1 mg Documented by: Aspirin (Aspirin 81 Mg Ectab) 81 mg PO QPM JESSICA Stop: 11/13/19 20:59 Last Admin: 10/17/19 20:39 Dose: 81 mg Documented by: Aztreonam (Aztreonam Consult Active) 1 ea N/A UD PRN PRN Reason: Consult Stop: 11/13/19 02:08 Brimonidine Tartrate (Brimonidine Tartrate 0.2% 5ml) 1 drops OPB BID [facility] Stop: 11/13/19 01:32 Last Admin: 10/18/19 09:51 Dose: 1 drops Documented by: Bupropion HCl (Bupropion Xl 300 Mg Tabcr) 300 mg PO QAM [facility] Stop: 11/13/19 08:59 Last Admin: 10/18/19 09:54 Dose: 300 mg Documented by: Calcium Carbonate (Calcium Carbonate 1250mg Tab) 1,250 mg PO QPM JESSICA Stop: 11/13/19 20:59 Last Admin: 10/17/19 20:38 Dose: 1,250 mg Documented by: Dextrose (Dextrose 50% 50 Ml Syringe) 25 - 50 ml IV UD PRN; Protocol PRN Reason: Hypoglycemia Protocol Stop: 11/13/19 01:32 Diclofenac Sodium (Diclofenac Sod 1% Gel 100 Gm Tube) 2 gm EXT QID PRN PRN Reason: back pain Stop: 11/13/19 01:32 Last Admin: 10/18/19 00:21 Dose: 2 gm Documented by: Dorzolamide HCl (Dorzolamide Hcl 2% Oph Soln 10 Ml Btl) 1 drops OPR BID JESSICA Stop: 11/13/19 01:32 Last Admin: 10/18/19 09:52 Dose: 1 drops Documented by: Ferrous Sulfate (Ferrous Sulfate 325 Mg Tab) 325 mg PO BID [facility] Stop: 11/13/19 01:32 Last Admin: 10/18/19 09:53 Dose: 325 mg Documented by: Fluticasone/Vilanterol (Fluticasone/Vilanterol 100/25mcg 14 Puffs/Inhaler) 1 puffs INH DAILY [facility]; Protocol Stop: 11/13/19 21:29 Last Admin: 10/18/19 09:51 Dose: 1 puffs Documented by: Glucagon (Glucagon For Inj 1 Mg Vial) 1 mg SQ UD PRN; Protocol PRN Reason: Hypoglycemia Protocol Stop: 11/13/19 01:32 Glucose (Glucose 10 Tabs/Tube) 4 - 8 tabs PO UD PRN; Protocol PRN Reason: Hypoglycemia Protocol Stop: 11/13/19 01:32 Glucose (Glucose 40% Gel 15 Gm Tube) 15 - 30 gm PO UD PRN; Protocol PRN Reason: Hypoglycemia Protocol Stop: 11/13/19 01:32 Guaifenesin (Guaifenesin 600 Mg Tabcr) 1,200 mg PO Q12 JESSICA Stop: 11/13/19 08:59 Last Admin: 10/18/19 09:53 Dose: 1,200 mg Documented by: Heparin Sodium (Porcine) (Heparin 100 Unit/Ml 5ml Flush) 5 ml FLUSH PRN PRN PRN Reason: Flush Stop: 11/12/19 23:10 Last Admin: 10/18/19 11:30 Dose: 5 ml Documented by: Heparin Sodium (Porcine) (Heparin Sod 5,000 Unit/0.5 Ml Vial) 5,000 units SQ Q12 JESSICA Stop: 11/13/19 20:59 Last Admin: 10/18/19 09:53 Dose: 5,000 units Documented by: Aztreonam 1,000 mg/ Dextrose 110 mls @ 100 mls/hr IV Q8H [facility]; Protocol Stop: 10/21/19 09:59 Last Infusion: 10/18/19 11:30 Dose: Infused Documented by: Bumetanide 2 mg/ Syringe 8 mls @ 4 mls/min IV DAILY@0900,1700 [facility] Stop: 11/17/19 16:59 Insulin Aspart (Insulin Aspart 100 Units/Ml 3 Ml Pen) 0 units SC ACHS [facility] Stop: 11/13/19 07:29 Last Admin: 10/18/19 13:46 Dose: 3 units Documented by: Lidocaine (Lidocaine 5% 1 Patch) 1 [facility] [place] Stop: 11/14/19 14:29 Last Admin: 10/18/19 13:41 Dose: 1 patch Documented by: Magnesium Hydroxide (Magnesium Hydroxide Susp 30 Ml Udc) 30 ml PO Q12H PRN PRN Reason: Constipation Stop: 11/13/19 01:32 Metoprolol Tartrate (Metoprolol Tartrate 25 Mg Tab) 12.5 mg PO BID [facility] Stop: 11/13/19 01:32 Last Admin: 10/18/19 09:52 Dose: 12.5 mg Documented by: Miconazole Nitrate (Miconazole Nitrate Powder 43 Gm) 1 appln EXT PRN PRN PRN Reason: Rash under skin folds Stop: 11/13/19 01:32 Miscellaneous (Carbohydrates For Hypoglycemia ) 15 - 30 gm PO UD PRN PRN Reason: Hypoglycemia Protocol Stop: 11/13/19 01:32 Miscellaneous (Remove Lidoderm Patch) 1 ea N/A DAILY@2100 [facility] Stop: 11/14/19 20:59 Last Admin: 10/17/19 20:40 Dose: 1 ea Documented by: Montelukast Sodium (Montelukast Sodium 10 Mg Tablet) 10 mg PO HS [facility] Stop: 11/13/19 01:32 Last Admin: 10/17/19 20:39 Dose: 10 mg Documented by: Multivitamins/Minerals (Cerovite Adv Formula Tab) 1 tab PO [facility] Stop: 11/13/19 08:59 Last Admin: 10/18/19 09:53 Dose: 1 tab Documented by: Ondansetron HCl (Ondansetron Inj 2 Mg/Ml 2 Ml Vial) 4 mg IV Q6H PRN PRN Reason: Nausea Stop: 11/13/19 01:32 Pantoprazole Sodium (Pantoprazole 40 Mg Tab) 40 mg PO [facility] Stop: 11/13/19 08:59 Last Admin: 10/18/19 09:53 Dose: 40 mg Documented by: Prednisone (Prednisone 5 Mg Tab) 5 [facility] [place] [facility] Stop: 11/13/19 08:59 Last Admin: 10/18/19 09:53 Dose: 5 mg Documented by: Sodium Bicarbonate (Sodium Bicarbonate 650 Mg Tab) 650 mg PO BID [facility] Stop: 11/13/19 01:32 Last Admin: 10/18/19 09:53 Dose: 650 mg Documented by: Vitamin D (Cholecalciferol 1,000 Units 25 Mcg Tab) 5,000 units PO QAM [facility] Stop: 11/13/19 08:59 Last Admin: 10/18/19 09:53 Dose: 5,000 units Documented by: PG Care Time/CCT Total # of Minutes Spent Total Time Spent with Patient: Total time spent is greater than 50% in coordination of care (as documented) at patient's floor/unit and/or counseling patient: Coding Level of Care Code 95800 Subseq Hosp Care Lvl 2 Diagnoses Acute exacerbation of CHF (congestive heart failure) I50.9 Heart failure type: unspecified Chronic kidney disease, stage V N18.5 Cellulitis of both lower extremities L03.115; L03.116 Depression F32.9 Rheumatoid arthritis M06.9 GERD (gastroesophageal reflux disease) K21.9 Hypertension I10 Diabetes mellitus, type 2 E11.9 Asthma J45.909 History of DVT (deep vein thrombosis) Z86.718 Back pain M54.9 Abnormal ECG R94.31 Leg wound, left S81.802A Wound of foot S91.309A Open wound, hand S61.409A DVT prophylaxis Z29.9 (1) Acute exacerbation of CHF (congestive heart failure) Heart failure type: unspecified Qualified Code(s): I50.9 - Heart failure, unspecified
[2019-10-18] MEDS: BUMETANIDE 2 MG in SYRINGE 0 ML IV SCH (17:48)
[2019-10-18] MEDS: MONTELUKAST SODIUM 10 MG TABLET PO SCH (20:08)
[2019-10-18] MEDS: CALCIUM CARBONATE 1250MG TAB PO SCH (20:08)
[2019-10-18] MEDS: ASPIRIN 81 MG ECTAB PO SCH (20:09)
[2019-10-18] MEDS: ANASTROZOLE 1 MG TAB PO SCH (20:09)
[2019-10-18] MEDS: HYDROCODONE/ACETAMOPHEN 5/325MG TAB PO PRN (20:34)
[2019-10-19] MEDS: AZTREONAM 1,000 MG in DEXTROSE 5% 100 ML IV SCH ×3 (02:11→18:44)
[2019-10-19] MEDS: HEPARIN 100 UNIT/ML 5ML FLUSH FLUSH PRN ×4 (03:21→19:59)
[2019-10-19 07:06] LABS: BUN Creatinine Ratio 13.3 (10-20); Calcium 8.9 mg/dl (8.5-10.1); Creatinine Clr Calc Pharmacy 13.1 ml/min; Est GFR (Non-African American) 10.3; Potassium 3.8 mmol/L (3.5-5.1)
[2019-10-19] MEDS: INSULIN ASPART 100 UNITS/ML 3 ML PEN SC SCH ×4 (09:18→21:07)
[2019-10-19] MEDS: BUMETANIDE 2 MG in SYRINGE 0 ML IV SCH (09:53)
[2019-10-19] MEDS: guaiFENesin 600 MG TABCR PO SCH ×2 (09:54→21:10)
[2019-10-19] MEDS: FERROUS SULFATE 325 MG TAB PO SCH ×2 (09:54→21:14)
[2019-10-19] MEDS: METOPROLOL TARTRATE 25 MG TAB PO SCH ×2 (09:54→21:28)
[2019-10-19] MEDS: predniSONE 5 MG TAB PO SCH (09:54)
[2019-10-19] MEDS: SODIUM BICARBONATE 650 MG TAB PO SCH ×2 (09:54→21:15)
[2019-10-19] MEDS: CHOLECALCIFEROL 1,000 UNITS 25 MCG TAB PO SCH (09:55)
[2019-10-19] MEDS: PANTOprazole 40 MG TAB PO SCH (09:55)
[2019-10-19] MEDS: DORZOLAMIDE HCL 2% OPH SOLN 10 ML BTL OPR SCH ×2 (09:55→21:28)
[2019-10-19] MEDS: CEROVITE ADV FORMULA TAB PO SCH (09:55)
[2019-10-19] MEDS: BRIMONIDINE TARTRATE 0.2% 5ML OPB SCH ×2 (09:56→21:14)
[2019-10-19] MEDS: BuPROPion XL 300 MG TABCR PO SCH (09:56)
[2019-10-19] MEDS: FLUTICASONE/VILANTEROL 100/25MCG 14 PUFFS/INHALER INH SCH (09:56)
[2019-10-19] MEDS: HEPARIN SOD 5,000 UNIT/0.5 ML VIAL SQ SCH ×2 (10:22→21:08)
[2019-10-19] MEDS: POTASSIUM CHLORIDE 20 MEQ TABCR PO SCH ×2 (10:22→21:10)
[2019-10-19] MEDS ORDERED: BACLOFEN 10 MG TAB PO STA (13:25)
--- NOTE | 2019-10-19 13:32 | Hospitalist Progress Note ---
Date of Service October 19, 2019 Assessment & Plan (1) Acute exacerbation of CHF (congestive heart failure): With volume overload Acute on chronic diastolic CHF, Pulm HTN (pulmonary pressures 40-60mmHg) likely a degree of right heart failure which will make it difficult to remove fluid ECHO 07/2019 with preserved EF, mild AI, mild MR, elevated RVSP weight is 210lbs, she said this is up from a month ago when weight was 207lbs Cr is stable at 3.8 no real response to Bumex 2mg IV BID will try Bumex 3mg IV BID, discussed that it could worsen renal function, she understands Continue strict I/Os, daily weights, low Na+ diet Continue aspirin 81 mg daily, and metoprolol tartrate 12.5 mg p.o. twice daily follow BMP in the morning (2) Chronic kidney disease, stage V: Creatinine 3.53 upon admission, within her usual range. stable at 3.8 today with diuresis, Bumex 2gm IV q12 not making much urine according to patient, no change in edema will try Bumex 3mg IV BID starting this afternoon Continue sodium bicarbonate, iron sulfate, vitamin D3, and calcium carbonate Follow serial BMP Does not wish to pursue dialysis if renal failure worsens discussed today that aggressive diuresis may worsen renal function, may not be successful since pulmonary pressures are high (3) Cellulitis of both lower extremities: Cellulitis of bilateral lower extremities, left > right-improving daily continues to be afebrile, no leukocytosis, not septic no erythema on right leg, no erythema on left leg -continue aztreonam IV, stop Daptomycin Continue to work on diuresis. -Checking wound culture from draining ulceration on the left leg left leg wound with soft debridement 10/16 allergies limits antibiotic choices will need to complete 14 days total treatment, likely to use Aztreonam plans to go to SNF for rehab with antibiotics (4) Depression: Continue bupropion extended release 300 mg p.o. every morning (5) Rheumatoid arthritis: Continue prednisone 5 mg p.o. every morning. Monitor for potential need for stress dose steroids, vitals and electrolytes are stable (6) GERD (gastroesophageal reflux disease): Continue pantoprazole 40 mg every morning (7) Hypertension: controlled -continue metoprolol (8) Diabetes mellitus, type 2: Continue holding home Lantus 8 units subcu at bedtime Glucose controlled here Continue Accu-Cheks before meals and at bedtime with NovoLog coverage per scale (9) Asthma: Continue zafirlukast 20 mg every 12 hours, guaifenesin 1200 mg p.o. every 12 hours, and budesonide- formoterol HFA. no acute issues (10) History of DVT (deep vein thrombosis): h/o Protein S deficiency, cannot tolerate anticoag due to recurrent bleeding (11) Back pain: In the right mid to lower back paraspinous muscles, tender to palpation No previous imaging done Check CT of thoracic and lumbar spine -- no acute fractures, no compression fractures suspect this is due to muscular pain, spasms -Continue hydrocodone prn -Continue Tylenol prn, Voltaren gel as needed heating pad add on lidocaine patch try low dose Baclofen 10mg one dose this afternoon, see how she tolerates (12) Abnormal ECG: serial trop negative, ST an TW changes lateral leads no chest pain, not concerning (13) Leg wound, left: Wound care consultation placed Continue OPTi foam Check wound culture (14) Wound of foot: As above (15) Open wound, hand: As above (16) DVT prophylaxis: Heparin SQ Dispo-continued stay, try to diurese with higher doses of Bumex PT/OT consults will be placed Admission and Anticipated Discharge Date Admission Date: October 13, 2019 Subjective patient still with edema in her legs, she did not notice any increase in urine output with the Bumex 2mg BID will increase to 3mg BID, she agrees with this she did not have allergic reaction to the Baclofen 5mg, however, no pain relief, will try 10mg today, she agrees eating fairly well, moving her bowels no chest pain, no dyspnea, no fever/chills labs show Cr is 3.8 and K is 3.5 she now agrees to going to SNF rehab due to weakness and need for IV Aztreonam Review of Systems Review of Systems: All systems reviewed & are unremarkable except as noted in Subjective Physical Exam Constitutional: well developed, well nourished, + overweight and + edematous; no acute distress Eyes: PERRL, conjunctivae normal, anicteric sclerae ENMT: external ear and nose normal, oropharynx normal Neck: trachea midline, no thyromegaly Respiratory: normal respiratory effort, lungs clear to auscultation Cardiovascular: Rate/Rhythm: regular rate and regular rhythm Heart Sounds: normal S1 and normal S2; no murmur Vessels: no JVD Extremities: normal capillary refill and + edema (+2 bilaterally, non-pitting) Gastrointestinal (Abdomen): normal bowel sounds, soft, nontender, no hepatosplenomegaly Musculoskeletal: no cyanosis or clubbing, extremities motor strength 5/5 (right paraspinal muscle tendernss in lumbar spine) Skin: + wound (left medial lower leg, sloughing of skin); no rashes and no erythema Neurologic: patellar DTR's 2+ bilat, sensation intact and PERRL, EOMI, accommodation nl, no face palsy, no dysarthria Psychiatric: A+Ox3, euthymic affect Lymphatic: no cervical or axillary lymphadenopathy Results & Data Results & Data ([facility]) Laboratory Results Laboratory Results - last 24 hr 10/18/19 10/18/19 10/19/19 17:07 21:11 05:58 Sodium 137 Potassium 3.8 Chloride 105 Carbon Dioxide 23 Anion Gap 9.0 BUN 51 H Creatinine 3.86 H Est Cr Clr Drug Dosing 13.1 Est GFR ( Amer) 12.0 Est GFR (Non-Af Amer) 10.3 BUN/Creatinine Ratio 13.3 Glucose 106 H POC Glucose 139 H 173 H Calcium 8.9 Specimen Hemolysis 10/19/19 10/19/19 08:13 12:11 Sodium Potassium Chloride Carbon Dioxide Anion Gap BUN Creatinine Est Cr Clr Drug Dosing Est GFR ( Amer) Est GFR (Non-Af Amer) BUN/Creatinine Ratio Glucose POC Glucose 112 H 95 Calcium Specimen Hemolysis Medications Administered Current Inpatient Medications Acetaminophen (Acetaminophen 325 Mg Tab) 650 mg PO Q8H PRN PRN Reason: Pain or Fever Stop: 11/13/19 01:32 Last Admin: 10/15/19 09:07 Dose: 650 mg Documented by: Hydrocodone Bitart/Acetaminophen (Hydrocodone/Acetamophen 5/325mg Tab) 1 tab PO Q6H PRN PRN Reason: Pain Stop: 10/28/19 16:59 Last Admin: 10/18/19 20:34 Dose: 1 tab Documented by: Al Hydrox/Mg Hydrox/Simethicone (Aluminum/Magnesium Susp 30 Ml Udc) 15 ml PO Q4H PRN PRN Reason: Dyspepsia Stop: 11/13/19 01:32 Albuterol (Albuterol Hfa 8 Gm Inhaler) 2 puffs INH QID PRN PRN Reason: Shortness Of Breath Or Wheezin Stop: 11/13/19 08:59 Last Admin: 10/17/19 20:45 Dose: 2 puffs Documented by: Anastrozole (Anastrozole 1 Mg Tab) 1 mg PO QPM JESSICA Stop: 11/13/19 20:59 Last Admin: 10/18/19 20:09 Dose: 1 mg Documented by: Aspirin (Aspirin 81 Mg Ectab) 81 mg PO QPM JESSICA Stop: 11/13/19 20:59 Last Admin: 10/18/19 20:09 Dose: 81 mg Documented by: Aztreonam (Aztreonam Consult Active) 1 ea N/A UD PRN PRN Reason: Consult Stop: 11/13/19 02:08 Baclofen (Baclofen 10 Mg Tab) 10 mg PO NOW STA Stop: 10/19/19 13:26 Brimonidine Tartrate (Brimonidine Tartrate 0.2% 5ml) 1 drops OPB BID JESSICA Stop: 11/13/19 01:32 Last Admin: 10/19/19 09:56 Dose: 1 drops Documented by: Bupropion HCl (Bupropion Xl 300 Mg Tabcr) 300 mg PO QAM JESSICA Stop: 11/13/19 08:59 Last Admin: 10/19/19 09:56 Dose: 300 mg Documented by: Calcium Carbonate (Calcium Carbonate 1250mg Tab) 1,250 mg PO QPM JESSICA Stop: 11/13/19 20:59 Last Admin: 10/18/19 20:08 Dose: 1,250 mg Documented by: Dextrose (Dextrose 50% 50 Ml Syringe) 25 - 50 ml IV UD PRN; Protocol PRN Reason: Hypoglycemia Protocol Stop: 11/13/19 01:32 Diclofenac Sodium (Diclofenac Sod 1% Gel 100 Gm Tube) 2 gm EXT QID PRN PRN Reason: back pain Stop: 11/13/19 01:32 Last Admin: 10/18/19 00:21 Dose: 2 gm Documented by: Dorzolamide HCl (Dorzolamide Hcl 2% Oph Soln 10 Ml Btl) 1 drops OPR BID JESSICA Stop: 11/13/19 01:32 Last Admin: 10/19/19 09:55 Dose: 1 drops Documented by: Ferrous Sulfate (Ferrous Sulfate 325 Mg Tab) 325 mg PO BID [facility] Stop: 11/13/19 01:32 Last Admin: 10/19/19 09:54 Dose: 325 mg Documented by: Fluticasone/Vilanterol (Fluticasone/Vilanterol 100/25mcg 14 Puffs/Inhaler) 1 puffs INH DAILY [facility]; Protocol Stop: 11/13/19 21:29 Last Admin: 10/19/19 09:56 Dose: 1 puffs Documented by: Glucagon (Glucagon For Inj 1 Mg Vial) 1 mg SQ UD PRN; Protocol PRN Reason: Hypoglycemia Protocol Stop: 11/13/19 01:32 Glucose (Glucose 10 Tabs/Tube) 4 - 8 tabs PO UD PRN; Protocol PRN Reason: Hypoglycemia Protocol Stop: 11/13/19 01:32 Glucose (Glucose 40% Gel 15 Gm Tube) 15 - 30 gm PO UD PRN; Protocol PRN Reason: Hypoglycemia Protocol Stop: 11/13/19 01:32 Guaifenesin (Guaifenesin 600 Mg Tabcr) 1,200 mg PO Q12 JESSICA Stop: 11/13/19 08:59 Last Admin: 10/19/19 09:54 Dose: 1,200 mg Documented by: Heparin Sodium (Porcine) (Heparin 100 Unit/Ml 5ml Flush) 5 ml FLUSH PRN PRN PRN Reason: Flush Stop: 11/12/19 23:10 Last Admin: 10/19/19 11:46 Dose: 5 ml Documented by: Heparin Sodium (Porcine) (Heparin Sod 5,000 Unit/0.5 Ml Vial) 5,000 units SQ Q12 [facility] Stop: 11/13/19 20:59 Last Admin: 10/19/19 10:22 Dose: Not Given Documented by: Aztreonam 1,000 mg/ Dextrose 110 mls @ 100 mls/hr IV Q8H [facility]; Protocol Stop: 10/28/19 09:59 Last Infusion: 10/19/19 11:47 Dose: Infused Documented by: Bumetanide 3 mg/ Syringe 12 mls @ 4 mls/min IV DAILY@0900,1700 [facility] Stop: 11/18/19 16:59 Insulin Aspart (Insulin Aspart 100 Units/Ml 3 Ml Pen) 0 units SC ACHS [facility] Stop: 11/13/19 07:29 Last Admin: 10/19/19 12:52 Dose: 5 units Documented by: Lidocaine (Lidocaine 5% 1 Patch) 1 patch TD [facility] Stop: 11/14/19 14:29 Last Admin: 10/18/19 13:41 Dose: 1 patch Documented by: Magnesium Hydroxide (Magnesium Hydroxide Susp 30 Ml Udc) 30 ml PO Q12H PRN PRN Reason: Constipation Stop: 11/13/19 01:32 Metoprolol Tartrate (Metoprolol Tartrate 25 Mg Tab) 12.5 mg PO BID [facility] Stop: 11/13/19 01:32 Last Admin: 10/19/19 09:54 Dose: 12.5 mg Documented by: Miconazole Nitrate (Miconazole Nitrate Powder 43 Gm) 1 appln EXT PRN PRN PRN Reason: Rash under skin folds Stop: 11/13/19 01:32 Miscellaneous (Carbohydrates For Hypoglycemia ) 15 - 30 gm PO UD PRN PRN Reason: Hypoglycemia Protocol Stop: 11/13/19 01:32 Miscellaneous (Remove Lidoderm Patch) 1 ea N/A DAILY@2100 [facility] Stop: 11/14/19 20:59 Last Admin: 10/18/19 20:13 Dose: 1 ea Documented by: Montelukast Sodium (Montelukast Sodium 10 Mg Tablet) 10 mg PO HS [facility] Stop: 11/13/19 01:32 Last Admin: 10/18/19 20:08 Dose: 10 mg Documented by: Multivitamins/Minerals (Cerovite Adv Formula Tab) 1 tab PO [facility] Stop: 11/13/19 08:59 Last Admin: 10/19/19 09:55 Dose: 1 tab Documented by: Ondansetron HCl (Ondansetron Inj 2 Mg/Ml 2 Ml Vial) 4 mg IV Q6H PRN PRN Reason: Nausea Stop: 11/13/19 01:32 Pantoprazole Sodium (Pantoprazole 40 Mg Tab) 40 mg PO [facility] Stop: 11/13/19 08:59 Last Admin: 10/19/19 09:55 Dose: 40 mg Documented by: Potassium Chloride (Potassium Chloride 20 Meq Tabcr) 20 meq PO BID [facility] Stop: 11/18/19 08:59 Last Admin: 10/19/19 10:22 Dose: 20 meq Documented by: Prednisone (Prednisone 5 Mg Tab) 5 mg PO [facility] Stop: 11/13/19 08:59 Last Admin: 10/19/19 09:54 Dose: 5 mg Documented by: Sodium Bicarbonate (Sodium Bicarbonate 650 Mg Tab) 650 mg PO BID [facility] Stop: 11/13/19 01:32 Last Admin: 10/19/19 09:54 Dose: 650 mg Documented by: Vitamin D (Cholecalciferol 1,000 Units 25 Mcg Tab) 5,000 units PO QAM [facility] Stop: 11/13/19 08:59 Last Admin: 10/19/19 09:55 Dose: 5,000 units Documented by: PG Care Time/CCT Total # of Minutes Spent Total Time Spent with Patient: Total time spent is greater than 50% in coordination of care (as documented) at patient's floor/unit and/or counseling patient: Coding Level of Care Code 19870 Subseq Hosp Care Lvl 3 Diagnoses Acute exacerbation of CHF (congestive heart failure) I50.9 Heart failure type: unspecified Chronic kidney disease, stage V N18.5 Cellulitis of both lower extremities L03.115; L03.116 Depression F32.9 Rheumatoid arthritis M06.9 GERD (gastroesophageal reflux disease) K21.9 Hypertension I10 Diabetes mellitus, type 2 E11.9 Asthma J45.909 History of DVT (deep vein thrombosis) Z86.718 Back pain M54.9 Abnormal ECG R94.31 Leg wound, left S81.802A Wound of foot S91.309A Open wound, hand S61.409A DVT prophylaxis Z29.9 (1) Acute exacerbation of CHF (congestive heart failure) Heart failure type: unspecified Qualified Code(s): I50.9 - Heart failure, unspecified
[2019-10-19] MEDS: BUMETANIDE 3 MG in SYRINGE 0 ML IV SCH (18:32)
[2019-10-19] MEDS: ASPIRIN 81 MG ECTAB PO SCH (21:10)
[2019-10-19] MEDS: CALCIUM CARBONATE 1250MG TAB PO SCH (21:10)
[2019-10-19] MEDS: ANASTROZOLE 1 MG TAB PO SCH (21:11)
[2019-10-19] MEDS: MONTELUKAST SODIUM 10 MG TABLET PO SCH (21:15)
[2019-10-19] MEDS: NYSTATIN POWDER 15GM BTL EXT SCH (22:05)
[2019-10-20 02:41] LABS: Hematocrit (blood only) 29.1 % (37-47); Hemoglobin 9.2 g/dL (12.0-16.0); Mean Corpuscular Hemoglobin 31.2 pg (25-34); Mean Corpuscular Hgb Conc 31.6 g/dL (32-36); Mean Corpuscular Volume 98.6 fL (80-100); Mean Platelet Volume 9.7 fL (7.4-10.4); Platelet Count 216 K/uL (130-400); RDW Coefficient of Variation 13.9 % (11.5-14.5); RDW Standard Deviation 49.8 fL (36.4-46.3); Red Blood Count 2.95 M/uL (4.2-5.4); White Blood Count 6.73 K/uL (4.8-10.8)
[2019-10-20] MEDS: AZTREONAM 1,000 MG in DEXTROSE 5% 100 ML IV SCH ×3 (02:58→17:38)
[2019-10-20] MEDS ORDERED: DIPHTHERIA/TETANUS/PERTUSSIS 0.5 ML SYR/VIAL IM ONE (03:08)
--- NOTE | 2019-10-20 03:08 | Communication Note ---
Date of Service: October 20, 2019 Provider called for skin laceration/tear on R forearm which had bled through a dressing w/ curling. 2cm superficial skin tear observed, cleaned with sterile NSS. Surgifoam x1 applied, overlying dressing applied, and wrapped in curlex. Discussed with ED provider/PA. If wound continues to bleed patient can be transferred to the ED for suture repair or referred to ICU PA for suture repair on floor. Discussed plan with nursing staff who will reassess clinically. 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 Radial pulse intact and symmetrical. Pt with chronic strength deficit on RUE unchanged
[2019-10-20 03:32] LABS: BUN Creatinine Ratio 13.5 (10-20); Calcium 9.2 mg/dl (8.5-10.1); Creatinine Clr Calc Pharmacy 12.9 ml/min; Est GFR (African American) 11.8; Est GFR (Non-African American) 10.2; Potassium 4.1 mmol/L (3.5-5.1)
[2019-10-20] MEDS ORDERED: XYLOCAINE 1%/SOD BICARB 20 ML VIAL INFIL ONE (04:12)
--- NOTE | 2019-10-20 05:28 | Procedure Note ---
Procedure Note Date of Service October 20, 2019 Chief Complaint: RIGHT Forearm Laceration History of Present Illness: This patient is a [] who presents to the Emergency Department [] for evaluation of their [] laceration. Patient sustained the laceration while []. They report a [] amount of bleeding initially. They [] any numbness or tingling into the distal extremity. They have tried [] for the pain with [] relief of their symptoms. Patient rates [] current discomfort as a []/10. Patient denies []. Patient's Tetanus status is [] currently up-to-date. Medications: [] Allergies: [] PMH: [] SHx: [] ROS: All pertinent positive and negative review of systems are appropriately documented in the History of Present Illness. Physical Exam: VITAL SIGNS - Vital signs and nursing notes were reviewed. GENERAL - []-year-old [] appearing [] stated age who is in no acute distress. Communicates well with provider and answers questions appropriately. SKIN - There is a [] cm long laceration noted []. The edges [] gape apart with traction. [] No foreign bodies appreciated. Upon further examination there are [] no deep structures including vessel, tendon, or bony structures appreciated. There is [] active bleeding noted. MUSCULOSKELETAL - [] NEUROLOGIC - Spinothalamic tract was found to be intact with ability to discriminate sharp versus dull sensation at the level of hip joint down do the great toe. No sensory defects of the dorsal column were appreciated utilizing light touch for evaluation. VASCULAR - Capillary refill was brisk. ED Course: Patient was seen and evaluated by myself. Costs and benefits of performing primary wound closure versus no repair were discussed with the patient who verbalizes understanding. Verbal consent was obtained prior to performing the procedure. [] cc of [] was used to anesthetize the [] laceration. The wound was cleansed and prepped in the typical sterile fashion utilizing normal saline and Betadine. The wound was sterilely draped. Once proper anesthetization was established, the wound was further examined and demonstrated []. The wound was copiously irrigated with normal saline and Betadine. The wound was closed using [] simple, []-0 nylon sutures with the wound edges being well approximated. Patient tolerated the procedure well. No complications were met. The wound was cleansed and dressed with a Bacitracin dressing. [] Patient received their Adacel vaccination. Patient educated on worrisome symptoms for return visit to the Emergency Department. Patient discharged to home in good condition. Impression: [] Laceration Discharge Instructions: You have received [] sutures on your []. These sutures are NOT dissolvable and WILL need to be removed by a health care provider in [] days. You can return to the Emergency Department or contact your Primary Care Provider to have the sutures removed. Proper wound care is essential for adequate wound healing and infection prevention. You can shower and clean the wound with soap and water. Do not scour over the wound, pat dry with a towel. Do not submerse the wound (i.e. bathe or dish wash) until the sutures have been removed. You can use an antibiotic ointment with a dressing over the wound for the next 3-4 days. After this time you may leave the wound dry and open to the air. If crust develops over the wound you can use a Q-tip to apply a 1:1 peroxide:water solution to clean the wound. Look for signs of infection of the wound including: increased pain, swelling, foul discharge, streaking, or increased temperature. If any of these are noticed you should return to the Emergency Department for further assessment and treatment. As with any laceration you may have received nerve damage to the surrounding tissues. This damage may or may not be permanent. You should keep the area covered with sunscreen for the first 6 months to 1 year when at risk for exposure to help minimize scarring. You can also use scar reducing creams or Vitamin E oil to help minimize scarring. For pain control, you can use the following [id number] medicines (if >12 yo): - Regular strength (325mg/tab) Tylenol (acetaminophen) 2 tabs every 4-6 hours as needed. Do not exceed 12 tablets in a 24 hour period. Avoid taking more than 4 grams (4000 mg) of Tylenol per day. This includes any other sources of acetaminophen you may take on a regular basis. - Regular strength (200 mg/tab) Advil (ibuprofen) 1-2 tabs every 4-6 hours as needed. Do not exceed a dose of 3200 mg per day. Return to the emergency department if your symptoms worsen despite treatment course outlined above. Coding
--- NOTE | 2019-10-20 05:38 | Critical Care Consultation ---
Date of Consultation October 20, 2019 Assessment & Plan (1) Skin tear: Patient was seen and evaluated by myself. Costs and benefits of performing primary wound closure versus no repair were discussed with the patient who verbalizes understanding. Verbal consent was obtained prior to performing the procedure. 2.0 cc of 1% Buffered Lidocaine was used to anesthetize the RIGHT Forearm laceration. The wound was cleansed and prepped in the typical sterile fashion utilizing normal saline and Betadine. The wound was sterilely draped. Once proper anesthetization was established, the wound was further examined and demonstrated a skin tear measuring a total of 6.0 cm with gaping edges in the middle of the laceration. I am able to appreciate a small, solitary bleeding vessel. The depth of the laceration and fragility of the superficial skin did not allow for me to perform vessel ligation. No other deep structures were appreciated. The wound was copiously irrigated with normal saline and Betadine. The wound was closed using 8 simple, 5-0 nylon sutures with the wound edges being well approximated. Patient tolerated the procedure well. No complications were met. The wound was cleansed and dressed with a Bacitracin dressing. Impression: RIGHT Forearm Laceration Wound Instructions: You have received 8 sutures on your RIGHT Forearm. These sutures are NOT dissolvable and WILL need to be removed by a health care provider in 7-10 days. Proper wound care is essential for adequate wound healing and infection prevention. You can shower and clean the wound with soap and water. Do not scour over the wound, pat dry with a towel. Do not submerse the wound (i.e. bathe or dish wash) until the sutures have been removed. You can use an antibiotic ointment with a dressing over the wound for the next 3-4 days. After this time you may leave the wound dry and open to the air. If crust develops over the wound you can use a Q-tip to apply a 1:1 peroxide:water solution to clean the wound. Look for signs of infection of the wound including: increased pain, swelling, foul discharge, streaking, or increased temperature. If any of these are noticed you should be evaluated by a medical professional. As with any laceration you may have received nerve damage to the surrounding tissues. This damage may or may not be permanent. You should keep the area covered with sunscreen for the first 6 months to 1 year when at risk for exposure to help minimize scarring. You can also use scar reducing creams or Vitamin E oil to help minimize scarring. History of Present Illness Attending Physician: Ottoniel Chun DO History of Present Illness Patient is an 79-year-old female with multiple chronic medical conditions who was admitted to this facility for CHF exacerbation. I was approached by nocturnal team and asked to assess the patient for wound repair as the patient sustained a skin tear to the RIGHT forearm while having her blood pressure taken manually. The patient has continued to bleed throughout the night including bleeding through multiple dressings. On assessment, the patient is awake, alert, and oriented. She complains of no discomfort to the RIGHT upper extremity. She is irritated with the ongoing bleeding as she has not been able to sleep through the night, but otherwise offers no complaints. She rates her discomfort is 0/10. Patient does not take anticoagulation daily. She has been receiving subcu heparin during hospitalization. Allergies Allergy/AdvReac Type Severity Reaction Status Date / Time Bactrim Allergy Severe dizzy,dyseq Verified 10/26/17 14:59 uilibrium bee venom protein (honey bee) Allergy Severe ANAPHYLAXIS Verified 10/13/19 19:30 cefaclor Allergy Severe stiff and Verified 10/13/19 19:30 sore muscles-PT DENIES lisinopril Allergy Severe tongue Verified 10/13/19 19:30 swelling diltiazem Allergy Intermediate rash Verified 10/13/19 19:30 Penicillins Allergy Mild RASH Verified 10/13/19 19:31 tetracycline Allergy Mild UNK-PT Verified 10/13/19 19:31 DENIES amoxicillin Allergy Unknown RASH Verified 10/13/19 19:31 baclofen Allergy Unknown Unknown Verified 10/13/19 19:32 cefuroxime Allergy Unknown TAST Verified 10/13/19 19:32 clavulanic acid Allergy Unknown ITCHING Verified 10/13/19 19:32 levofloxacin Allergy Unknown NAUSEA, Verified 10/13/19 19:32 DIZZINESS alendronate sodium AdvReac Intermediate FELT SICK Verified 10/13/19 19:33 Cipro AdvReac Intermediate LEGS ARMS Verified 10/26/17 14:59 STIFF, PAINFUL ciprofloxacin AdvReac Intermediate LEGS ARMS Verified 10/13/19 19:33 STIFF, PAINFUL doxycycline AdvReac Intermediate nausea and Verified 10/13/19 19:33 vomiting metformin AdvReac Intermediate CAUSED Verified 10/13/19 19:33 [employer] LACT[employer] ACID LEVELS tramadol AdvReac Intermediate DIZZINESS Verified 10/13/19 19:34 adhesive AdvReac Mild redness Verified 10/13/19 19:34 mercaptopurine AdvReac Mild MADE HER Verified 10/13/19 19:34 VERY ILL olmesartan AdvReac Mild HEADACHE Verified 10/13/19 19:34 Sulfa (Sulfonamide AdvReac Mild CAUSED Verified 10/13/19 19:35 Antibiotics) DIZZINESS sulfamethoxazole AdvReac Mild CAUSED Verified 10/13/19 19:35 DIZZINESS trimethoprim AdvReac Mild BACTRIM Verified 10/13/19 19:35 CAUSED DIZZINESS aspirin AdvReac Unknown CAUSES Verified 10/13/19 19:35 BRUISING Home Medications Home Medications Medication Instructions Recorded Confirmed Type Lantus Solostar U-100 Insulin 8 unit SUBCUT HS 11/22/17 10/13/19 History anastrozole 1 mg PO QPM 11/22/17 10/13/19 History aspirin [Aspirin Low Dose] 81 mg PO QPM 11/22/17 10/13/19 History calcium carbonate-vitamin D3 1 tab PO QPM 11/22/17 10/13/19 History [Os-Conrad 500 + D3] cholecalciferol (vitamin D3) 5,000 unit PO QAM 11/22/17 10/13/19 History metoprolol tartrate 12.5 mg PO BID 11/22/17 10/13/19 History multivitamin with minerals 1 tab PO QAM 11/22/17 10/13/19 History pantoprazole 40 mg PO QAM 11/22/17 10/13/19 History prednisone 5 mg PO QAM 11/22/17 10/13/19 History brimonidine 1 drp OPB BID 06/22/18 10/13/19 History dorzolamide 1 drp OPR BID 06/22/18 10/13/19 History ferrous sulfate 325 mg PO BID #0 tab 06/25/18 10/13/19 Rx budesonide-formoterol HFA 80 2 puff INHALATION BID #3 inhaler 02/01/19 10/13/19 Rx mcg-4.5 mcg/actuation aerosol inhaler zafirlukast 20 mg tablet 20 mg PO Q12H #180 tab 02/01/19 10/13/19 Rx albuterol sulfate 90 mcg/actuation 2 - 4 puff INHALATION QID PRN #3 02/15/19 10/13/19 Rx aerosol inhaler inhaler bupropion HCl 300 mg 24 hr tablet, 300 mg PO QAM tab 03/06/19 10/13/19 History extended release acetaminophen [Tylenol Extra 500 mg PO Q6H PRN 08/25/19 10/13/19 History Strength] diclofenac sodium [Voltaren] 2 g EXT QID PRN #100 gm 08/31/19 10/13/19 Rx guaifenesin [Mucinex] 1,200 mg PO Q12 #30 tab 08/31/19 10/13/19 Rx miconazole nitrate [Desenex] 1 applic EXT PRN PRN #43 gm 08/31/19 10/13/19 Rx sodium bicarbonate 650 mg tablet 650 mg PO BID tab 09/13/19 10/13/19 History bumetanide 1 mg PO DAILY PRN 10/13/19 10/13/19 History Patient History Medical History Acute osteomyelitis (06/05/01) "MRSA of the thoracic spine " On 02/05/12 10:49 Wilfredo Melendez wrote "MRSA of the thoracic spine " Asthma Breast cancer, left breast X2--1ST)2005 2)2012---SX,RADIATION Chronic back pain Chronic kidney disease, stage V CKD (chronic kidney disease) Deep vein thrombosis L LEG Fibromyalgia GERD (gastroesophageal reflux disease) Glaucoma BILT EYES Hyperlipidemia Hypertension Pneumonia, organism unspecified (02/05/12) Protein S deficiency Rheumatoid arthritis Spinal stenosis Stroke 07/2017--DIFFICULTY WALKING Trigeminal neuralgia Ulcerative colitis Vitamin D deficiency Surgical History H/O bilateral cataract extraction H/O right inguinal hernia repair History of appendectomy History of bowel resection 1993 WITH ILEOSTOMY @ [facility] – [place] History of breast biopsy LEFT MALIGNANT X2 History of colonoscopy History of esophagogastroduodenoscopy (EGD) History of gastric surgery 2012---[facility] ON STOMACH WALL History of lumpectomy of left breast X2 2005 WITH LYMPH NODE REMOVAL, 2012 History of tooth extraction ALL TEETH Family History Brother Family history of diabetes mellitus 2 BROTHERS Mother Family hx of colon cancer Father Family hx of colon cancer Social History Smoking Status: Former smoker Tobacco Type: Cigarettes Second Hand Exposure: Yes ( SMOKED); Hx Alcohol Use: No Hx Substance Use: No Preferred Language: Uzbek Communication Ability: Effective 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 Feels Safe at Home: Yes Review of Systems Review of Systems: All systems reviewed & are unremarkable except as noted in HPI & below Physical Exam Physical Exam: VITAL SIGNS - Vital signs and nursing notes were reviewed. GENERAL - 79-year-old female appearing her stated age who is in no acute distress. Communicates well with provider and answers questions appropriately. SKIN - There is a 6.0 cm long laceration noted to the volar aspect of the proximal RIGHT forearm. The edges gape apart with traction. No foreign bodies appreciated. Upon further examination there is a small, superficial bleeding vessel noted in the midpoint of the laceration. No deep structures including vessel, tendon, or bony structures appreciated. There is mild active bleeding noted. MUSCULOSKELETAL - Minimal ROM of the RIGHT upper extremity 2/2 h/o shoulder injury. NEUROLOGIC - Spinothalamic tract was found to be intact with ability to discriminate sharp versus dull sensation at the level of shoulder to the fingers. No sensory defects of the dorsal column were appreciated utilizing light touch for evaluation. VASCULAR - Capillary refill was brisk. Results & Data Results & Data ([facility]) Vital Signs (Past 12 Hours) Vital Signs Temp Pulse Resp BP Pulse Ox 10/19/19 23:53 36.8 C 84 16 94 10/19/19 21:28 148/82 H [facility] Procedure Codes (Charges) Skin and Soft Tissue Skin and Soft Tissue: 53926 Repair of wound or lesion Coding Level of Care Code 57049 Inpt Consult Level 3 Diagnoses Skin tear CPT Codes Skin and Soft Tissue - Skin and Soft Tissue: 54327 Repair of wound or lesion ([id number]) Time Spent (min) 35
[2019-10-20 06:15] LABS: Hematocrit (blood only) 28.5 % (37-47); Hemoglobin 9.1 g/dL (12.0-16.0)
[2019-10-20] MEDS: INSULIN ASPART 100 UNITS/ML 3 ML PEN SC SCH ×4 (09:22→20:57)
[2019-10-20] MEDS: LIDOCAINE 5% 1 PATCH TD SCH (09:24)
[2019-10-20] MEDS: NYSTATIN POWDER 15GM BTL EXT SCH ×2 (09:24→20:33)
[2019-10-20] MEDS: SODIUM BICARBONATE 650 MG TAB PO SCH ×2 (09:28→20:26)
[2019-10-20] MEDS: BuPROPion XL 300 MG TABCR PO SCH (09:28)
[2019-10-20] MEDS: PANTOprazole 40 MG TAB PO SCH (09:28)
[2019-10-20] MEDS: guaiFENesin 600 MG TABCR PO SCH ×2 (09:28→20:24)
[2019-10-20] MEDS: predniSONE 5 MG TAB PO SCH (09:28)
[2019-10-20] MEDS: BRIMONIDINE TARTRATE 0.2% 5ML OPB SCH ×2 (09:29→20:21)
[2019-10-20] MEDS: CEROVITE ADV FORMULA TAB PO SCH (09:29)
[2019-10-20] MEDS: FERROUS SULFATE 325 MG TAB PO SCH ×2 (09:30→20:22)
[2019-10-20] MEDS: POTASSIUM CHLORIDE 20 MEQ TABCR PO SCH ×2 (09:30→20:23)
[2019-10-20] MEDS: CHOLECALCIFEROL 1,000 UNITS 25 MCG TAB PO SCH (09:30)
[2019-10-20] MEDS: FLUTICASONE/VILANTEROL 100/25MCG 14 PUFFS/INHALER INH SCH (09:30)
[2019-10-20] MEDS: DORZOLAMIDE HCL 2% OPH SOLN 10 ML BTL OPR SCH ×2 (09:31→20:26)
[2019-10-20] MEDS: BUMETANIDE 3 MG in SYRINGE 0 ML IV SCH ×2 (09:32→18:13)
[2019-10-20] MEDS: HEPARIN SOD 5,000 UNIT/0.5 ML VIAL SQ SCH (09:33)
[2019-10-20] MEDS: METOPROLOL TARTRATE 25 MG TAB PO SCH ×2 (10:19→20:23)
[2019-10-20] MEDS: HEPARIN 100 UNIT/ML 5ML FLUSH FLUSH PRN (18:47)
[2019-10-20] MEDS: ANASTROZOLE 1 MG TAB PO SCH (20:21)
[2019-10-20] MEDS: ASPIRIN 81 MG ECTAB PO SCH (20:22)
[2019-10-20] MEDS: MONTELUKAST SODIUM 10 MG TABLET PO SCH (20:25)
[2019-10-20] MEDS: CALCIUM CARBONATE 1250MG TAB PO SCH (20:25)
--- NOTE | 2019-10-20 21:31 | Hospitalist Progress Note ---
Date of Service October 20, 2019 Assessment & Plan (1) Acute exacerbation of CHF (congestive heart failure): With volume overload Acute on chronic diastolic CHF, Pulm HTN (pulmonary pressures 40-60mmHg) likely a degree of right heart failure which will make it difficult to remove fluid ECHO 07/2019 with preserved EF, mild AI, mild MR, elevated RVSP weight is 210lbs, she said this is up from a month ago when weight was 207lbs Cr is stable at 3.9 no real response to Bumex 2mg IV BID increased Bumex 3mg IV BID, discussed that it could worsen renal function, she understands better response now to the 3mg dose, less edema, more urine output Continue strict I/Os, daily weights, low Na+ diet Continue aspirin 81 mg daily, and metoprolol tartrate 12.5 mg p.o. twice daily follow BMP in the morning (2) Chronic kidney disease, stage V: Creatinine 3.53 upon admission, within her usual range. stable at 3.9 today with diuresis, Bumex 3gm IV q12 more urine outpute K is stable Continue sodium bicarbonate, iron sulfate, vitamin D3, and calcium carbonate Follow serial BMP Does not wish to pursue dialysis if renal failure worsens discussed today that aggressive diuresis may worsen renal function, may not be successful since pulmonary pressures are high (3) Cellulitis of both lower extremities: Cellulitis of bilateral lower extremities, left > right-improving daily continues to be afebrile, no leukocytosis, not septic no erythema on right leg, no erythema on left leg -continue aztreonam IV, stop Daptomycin Continue to work on diuresis. -Checking wound culture from draining ulceration on the left leg left leg wound with soft debridement 10/16 allergies limits antibiotic choices will need to complete 14 days total treatment, likely to use Aztreonam plans to go to SNF for rehab with antibiotics (4) Depression: Continue bupropion extended release 300 mg p.o. every morning (5) Rheumatoid arthritis: Continue prednisone 5 mg p.o. every morning. Monitor for potential need for stress dose steroids, vitals and electrolytes are stable (6) GERD (gastroesophageal reflux disease): Continue pantoprazole 40 mg every morning (7) Hypertension: controlled -continue metoprolol (8) Diabetes mellitus, type 2: Continue holding home Lantus 8 units subcu at bedtime Glucose controlled here Continue Accu-Cheks before meals and at bedtime with NovoLog coverage per scale (9) Asthma: Continue zafirlukast 20 mg every 12 hours, guaifenesin 1200 mg p.o. every 12 hours, and budesonide- formoterol HFA. no acute issues (10) History of DVT (deep vein thrombosis): h/o Protein S deficiency, cannot tolerate anticoag due to recurrent bleeding (11) Back pain: In the right mid to lower back paraspinous muscles, tender to palpation No previous imaging done Check CT of thoracic and lumbar spine -- no acute fractures, no compression fractures suspect this is due to muscular pain, spasms -Continue hydrocodone prn -Continue Tylenol prn, Voltaren gel as needed heating pad add on lidocaine patch try low dose Baclofen 10mg BID, she is not having any adverse effects from single doses (12) Abnormal ECG: serial trop negative, ST an TW changes lateral leads no chest pain, not concerning (13) Leg wound, left: Wound care consultation placed Continue OPTi foam Check wound culture (14) Wound of foot: As above (15) Open wound, hand: As above (16) DVT prophylaxis: Heparin SQ Dispo-continued stay, try to diurese with higher doses of Bumex PT/OT consults will be placed Admission and Anticipated Discharge Date Admission Date: October 13, 2019 Subjective patient with increased back pain today she thinks now that maybe the baclofen helped, willing to try again Cr is up slightly at 3.9 she is definitely making more urine, less edema in legs today with the Bumex 3mg BID had issues last night with skin tear right arm, required 8 stitches, appreciate help from night team Review of Systems Review of Systems: All systems reviewed & are unremarkable except as noted in Subjective Musculoskeletal: + back pain Physical Exam Constitutional: well developed, well nourished, + overweight and + edematous; no acute distress Eyes: PERRL, conjunctivae normal, anicteric sclerae ENMT: external ear and nose normal, oropharynx normal Neck: trachea midline, no thyromegaly Respiratory: normal respiratory effort, lungs clear to auscultation Cardiovascular: Rate/Rhythm: regular rate and regular rhythm Heart Sounds: normal S1 and normal S2; no murmur Vessels: no JVD Extremities: normal capillary refill and + edema (+1 bilaterally, non-pitting) Gastrointestinal (Abdomen): normal bowel sounds, soft, nontender, no hepatosplenomegaly Musculoskeletal: no cyanosis or clubbing, extremities motor strength 5/5 (right paraspinal muscle tendernss in lumbar spine) Skin: + wound (left medial lower leg, sloughing of skin); no rashes and no erythema Neurologic: patellar DTR's 2+ bilat, sensation intact and PERRL, EOMI, accommodation nl, no face palsy, no dysarthria Psychiatric: A+Ox3, euthymic affect Lymphatic: no cervical or axillary lymphadenopathy Results & Data Results [facility] ([facility]) Vital Signs (Past 12 Hours) Vital Signs Temp Pulse Resp BP Pulse Ox 10/20/19 15:51 106/82 10/20/19 15:42 36.8 C 81 18 95 Laboratory Results Laboratory Results - last 24 hr 10/20/19 10/20/19 10/20/19 02:25 02:25 05:37 WBC 6.73 RBC 2.95 L Hgb 9.2 L 9.1 L Hct 29.1 L 28.5 L MCV 98.6 MCH 31.2 MCHC 31.6 L RDW Std Deviation 49.8 H RDW Coeff of Michelle 13.9 Plt Count 216 MPV 9.7 Sodium 136 Potassium 4.1 Chloride 105 Carbon Dioxide 24 Anion Gap 8.0 BUN 53 H Creatinine 3.91 H Est Cr Clr Drug Dosing 12.9 Est GFR ( Amer) 11.8 Est GFR (Non-Af Amer) 10.2 BUN/Creatinine Ratio 13.5 Glucose 112 H POC Glucose Calcium 9.2 10/20/19 10/20/19 10/20/19 08:28 12:00 17:19 WBC RBC Hgb Hct MCV MCH MCHC RDW Std Deviation RDW Coeff of Michelle Plt Count MPV Sodium Potassium Chloride Carbon Dioxide Anion Gap BUN Creatinine Est Cr Clr Drug Dosing Est GFR ( Amer) Est GFR (Non-Af Amer) BUN/Creatinine Ratio Glucose POC Glucose 131 H 138 H 132 H Calcium 10/20/19 20:41 WBC RBC Hgb Hct MCV MCH MCHC RDW Std Deviation RDW Coeff of Michelle Plt Count MPV Sodium Potassium Chloride Carbon Dioxide Anion Gap BUN Creatinine Est Cr Clr Drug Dosing Est GFR ( Amer) Est GFR (Non-Af Amer) BUN/Creatinine Ratio Glucose POC Glucose 166 H Calcium Medications Administered Current Inpatient Medications Acetaminophen (Acetaminophen 325 Mg Tab) 650 mg PO Q8H PRN PRN Reason: Pain or Fever Stop: 11/13/19 01:32 Last Admin: 10/15/19 09:07 Dose: 650 mg Documented by: Hydrocodone Bitart/Acetaminophen (Hydrocodone/Acetamophen 5/325mg Tab) 1 tab PO Q6H PRN PRN Reason: Pain Stop: 10/28/19 16:59 Last Admin: 10/18/19 20:34 Dose: 1 tab Documented by: Al Hydrox/Mg Hydrox/Simethicone (Aluminum/Magnesium Susp 30 Ml Udc) 15 ml PO Q4H PRN PRN Reason: Dyspepsia Stop: 11/13/19 01:32 Albuterol (Albuterol Hfa 8 Gm Inhaler) 2 puffs INH QID PRN PRN Reason: Shortness Of Breath Or Wheezin Stop: 11/13/19 08:59 Last Admin: 10/17/19 20:45 Dose: 2 puffs Documented by: Anastrozole (Anastrozole 1 Mg Tab) 1 mg PO QPM JESSICA Stop: 11/13/19 20:59 Last Admin: 10/20/19 20:21 Dose: 1 mg Documented by: Aspirin (Aspirin 81 Mg Ectab) 81 mg PO QPM JESSICA Stop: 11/13/19 20:59 Last Admin: 10/20/19 20:22 Dose: 81 mg Documented by: Aztreonam (Aztreonam Consult Active) 1 ea N/A UD PRN PRN Reason: Consult Stop: 11/13/19 02:08 Baclofen (Baclofen 10 Mg Tab) 10 mg PO BID [facility] Stop: 11/19/19 21:44 Brimonidine Tartrate (Brimonidine Tartrate 0.2% 5ml) 1 drops OPB BID JESSICA Stop: 11/13/19 01:32 Last Admin: 10/20/19 20:21 Dose: 1 drops Documented by: Bupropion HCl (Bupropion Xl 300 Mg Tabcr) 300 mg PO QAM JESSICA Stop: 11/13/19 08:59 Last Admin: 10/20/19 09:28 Dose: 300 mg Documented by: Calcium Carbonate (Calcium Carbonate 1250mg Tab) 1,250 mg PO QPM [facility] Stop: 11/13/19 20:59 Last Admin: 10/20/19 20:25 Dose: 1,250 mg Documented by: Dextrose (Dextrose 50% 50 Ml Syringe) 25 - 50 ml IV UD PRN; Protocol PRN Reason: Hypoglycemia Protocol Stop: 11/13/19 01:32 Diclofenac Sodium (Diclofenac Sod 1% Gel 100 Gm Tube) 2 gm EXT QID PRN PRN Reason: back pain Stop: 11/13/19 01:32 Last Admin: 10/18/19 00:21 Dose: 2 gm Documented by: Dorzolamide HCl (Dorzolamide Hcl 2% Oph Soln 10 Ml Btl) 1 drops OPR BID JESSICA Stop: 11/13/19 01:32 Last Admin: 10/20/19 20:26 Dose: 1 drops Documented by: Ferrous Sulfate (Ferrous Sulfate 325 Mg Tab) 325 mg PO BID JESSICA Stop: 11/13/19 01:32 Last Admin: 10/20/19 20:22 Dose: 325 mg Documented by: Fluticasone/Vilanterol (Fluticasone/Vilanterol 100/25mcg 14 Puffs/Inhaler) 1 puffs INH DAILY JESSICA; Protocol Stop: 11/13/19 21:29 Last Admin: 10/20/19 09:30 Dose: 1 puffs Documented by: Glucagon (Glucagon For Inj 1 Mg Vial) 1 mg SQ UD PRN; Protocol PRN Reason: Hypoglycemia Protocol Stop: 11/13/19 01:32 Glucose (Glucose 10 Tabs/Tube) 4 - 8 tabs PO UD PRN; Protocol PRN Reason: Hypoglycemia Protocol Stop: 11/13/19 01:32 Glucose (Glucose 40% Gel 15 Gm Tube) 15 - 30 gm PO UD PRN; Protocol PRN Reason: Hypoglycemia Protocol Stop: 11/13/19 01:32 Guaifenesin (Guaifenesin 600 Mg Tabcr) 1,200 mg PO Q12 JESSICA Stop: 11/13/19 08:59 Last Admin: 10/20/19 20:24 Dose: 1,200 mg Documented by: Heparin Sodium (Porcine) (Heparin 100 Unit/Ml 5ml Flush) 5 ml FLUSH PRN PRN PRN Reason: Flush Stop: 11/12/19 23:10 Last Admin: 10/20/19 18:47 Dose: 5 ml Documented by: Aztreonam 1,000 mg/ Dextrose 110 mls @ 100 mls/hr IV Q8H [facility]; Protocol Stop: 10/28/19 09:59 Last Infusion: 10/20/19 18:45 Dose: Infused Documented by: Bumetanide 3 mg/ Syringe 12 mls @ 4 mls/min IV DAILY@0900,1700 [facility] Stop: 11/18/19 16:59 Last Admin: 10/20/19 18:13 Dose: 4 mls/min Documented by: Insulin Aspart (Insulin Aspart 100 Units/Ml 3 Ml Pen) 0 units SC ACHS [facility] Stop: 11/13/19 07:29 Last Admin: 10/20/19 20:57 Dose: 1 units Documented by: Lidocaine (Lidocaine 5% 1 Patch) [facility] Stop: 11/14/19 14:29 Last Admin: 10/20/19 09:24 Dose: 1 patch Documented by: Magnesium Hydroxide (Magnesium Hydroxide Susp 30 Ml Udc) 30 ml PO Q12H PRN PRN Reason: Constipation Stop: 11/13/19 01:32 Metoprolol Tartrate (Metoprolol Tartrate 25 Mg Tab) 12.5 mg PO BID [facility] Stop: 11/13/19 01:32 Last Admin: 10/20/19 20:23 Dose: 12.5 mg Documented by: Miconazole Nitrate (Miconazole Nitrate Powder 43 Gm) 1 appln EXT PRN PRN PRN Reason: Rash under skin folds Stop: 11/13/19 01:32 Miscellaneous (Carbohydrates For Hypoglycemia ) 15 - 30 gm PO UD PRN PRN Reason: Hypoglycemia Protocol Stop: 11/13/19 01:32 Miscellaneous (Remove Lidoderm Patch) 1 ea N/A DAILY@2100 [facility] Stop: 11/14/19 20:59 Last Admin: 10/20/19 20:34 Dose: 1 ea Documented by: Montelukast Sodium (Montelukast Sodium 10 Mg Tablet) 10 mg PO HS [facility] Stop: 11/13/19 01:32 Last Admin: 10/20/19 20:25 Dose: 10 mg Documented by: Multivitamins/Minerals (Cerovite Adv Formula Tab) [facility] [place] Stop: 11/13/19 08:59 Last Admin: 10/20/19 09:29 Dose: 1 tab Documented by: Nystatin (Nystatin Powder 15gm Btl) 1 appln EXT Q12 [facility] Stop: 11/18/19 20:59 Last Admin: 10/20/19 20:33 Dose: 1 appln Documented by: Ondansetron HCl (Ondansetron Inj 2 Mg/Ml 2 Ml Vial) 4 mg IV Q6H PRN PRN Reason: Nausea Stop: 11/13/19 01:32 Pantoprazole Sodium (Pantoprazole 40 Mg Tab) 40 mg PO QAM [facility] Stop: 11/13/19 08:59 Last Admin: 10/20/19 09:28 Dose: 40 mg Documented by: Potassium Chloride (Potassium Chloride 20 Meq Tabcr) 20 meq PO BID [facility] Stop: 11/18/19 08:59 Last Admin: 10/20/19 20:23 Dose: 20 meq Documented by: Prednisone (Prednisone 5 Mg Tab) 5 mg PO QAM [facility] Stop: 11/13/19 08:59 Last Admin: 10/20/19 09:28 Dose: 5 mg Documented by: Sodium Bicarbonate (Sodium Bicarbonate 650 Mg Tab) 650 mg PO BID [facility] Stop: 11/13/19 01:32 Last Admin: 10/20/19 20:26 Dose: 650 mg Documented by: Vitamin D (Cholecalciferol 1,000 Units 25 Mcg Tab) 5,000 units PO QAM [facility] Stop: 11/13/19 08:59 Last Admin: 10/20/19 09:30 Dose: 5,000 units Documented by: PG Care Time/CCT Total # of Minutes Spent Total Time Spent with Patient: Total time spent is greater than 50% in coordination of care (as documented) at patient's floor/unit and/or counseling patient: Coding Level of Care Code 32806 Subseq Hosp Care Lvl 2 Diagnoses Acute exacerbation of CHF (congestive heart failure) I50.9 Heart failure type: unspecified Chronic kidney disease, stage V N18.5 Cellulitis of both lower extremities L03.115; L03.116 Depression F32.9 Rheumatoid arthritis M06.9 GERD (gastroesophageal reflux disease) K21.9 Hypertension I10 Diabetes mellitus, type 2 E11.9 Asthma J45.909 History of DVT (deep vein thrombosis) Z86.718 Back pain M54.9 Abnormal ECG R94.31 Leg wound, left S81.802A Wound of foot S91.309A Open wound, hand S61.409A DVT prophylaxis Z29.9 (1) Acute exacerbation of CHF (congestive heart failure) Heart failure type: unspecified Qualified Code(s): I50.9 - Heart failure, unspecified
[2019-10-20] MEDS: BACLOFEN 10 MG TAB PO SCH (22:15)
[2019-10-21] MEDS: AZTREONAM 1,000 MG in DEXTROSE 5% 100 ML IV SCH ×3 (01:43→17:46)
[2019-10-21] MEDS: ALBUTEROL HFA 8 GM INHALER INH PRN (02:14)
[2019-10-21] MEDS: HEPARIN 100 UNIT/ML 5ML FLUSH FLUSH PRN ×4 (02:52→18:58)
[2019-10-21 06:26] LABS: BUN Creatinine Ratio 14.2 (10-20); Calcium 9.6 mg/dl (8.5-10.1); Creatinine Clr Calc Pharmacy 13.4 ml/min; Est GFR (African American) 12.4; Est GFR (Non-African American) 10.7
[2019-10-21] MEDS: BUMETANIDE 3 MG in SYRINGE 0 ML IV SCH ×2 (09:24→16:16)
[2019-10-21] MEDS: LIDOCAINE 5% 1 PATCH TD SCH (09:25)
[2019-10-21] MEDS: FLUTICASONE/VILANTEROL 100/25MCG 14 PUFFS/INHALER INH SCH (09:25)
[2019-10-21] MEDS: CHOLECALCIFEROL 1,000 UNITS 25 MCG TAB PO SCH (09:26)
[2019-10-21] MEDS: BACLOFEN 10 MG TAB PO SCH (09:26)
[2019-10-21] MEDS: PANTOprazole 40 MG TAB PO SCH (09:27)
[2019-10-21] MEDS: CEROVITE ADV FORMULA TAB PO SCH (09:27)
[2019-10-21] MEDS: BuPROPion XL 300 MG TABCR PO SCH (09:27)
[2019-10-21] MEDS: predniSONE 5 MG TAB PO SCH (09:27)
[2019-10-21] MEDS: METOPROLOL TARTRATE 25 MG TAB PO SCH ×2 (09:28→21:54)
[2019-10-21] MEDS: SODIUM BICARBONATE 650 MG TAB PO SCH ×2 (09:28→21:55)
[2019-10-21] MEDS: guaiFENesin 600 MG TABCR PO SCH ×2 (09:29→21:55)
[2019-10-21] MEDS: NYSTATIN POWDER 15GM BTL EXT SCH ×2 (09:30→21:55)
[2019-10-21] MEDS: FERROUS SULFATE 325 MG TAB PO SCH ×2 (09:30→21:55)
[2019-10-21] MEDS: BRIMONIDINE TARTRATE 0.2% 5ML OPB SCH ×2 (09:31→21:54)
[2019-10-21] MEDS: POTASSIUM CHLORIDE 20 MEQ TABCR PO SCH ×2 (09:31→21:55)
[2019-10-21] MEDS: DORZOLAMIDE HCL 2% OPH SOLN 10 ML BTL OPR SCH ×2 (09:31→21:55)
[2019-10-21] MEDS: INSULIN ASPART 100 UNITS/ML 3 ML PEN SC SCH ×4 (09:32→22:38)
--- NOTE | 2019-10-21 16:03 | Hospitalist Progress Note ---
Date of Service October 21, 2019 Assessment & Plan (1) Acute exacerbation of CHF (congestive heart failure): With volume overload Acute on chronic diastolic CHF, Pulm HTN (pulmonary pressures 40-60mmHg) likely a degree of right heart failure which will make it difficult to remove fluid ECHO 07/2019 with preserved EF, mild AI, mild MR, elevated RVSP weight is down to 208lbs, she said this is up from a month ago when weight was 207lbs Cr is stable at 3.7 no real response to Bumex 2mg IV BID increased Bumex 3mg IV BID, discussed that it could worsen renal function, she understands better response now to the 3mg dose, less edema, more urine output Continue strict I/Os, daily weights, low Na+ diet Continue aspirin 81 mg daily, and metoprolol tartrate 12.5 mg p.o. twice daily follow BMP in the morning plan to use Bumex 3mg BID on discharge she was only taking 1mg daily prior to admission with worsening edema (2) Chronic kidney disease, stage V: Creatinine 3.53 upon admission, within her usual range. stable at 3.7 today with diuresis, Bumex 3gm IV q12 more urine output, weight down 2 lbs K is stable Continue sodium bicarbonate, iron sulfate, vitamin D3, and calcium carbonate Follow serial BMP Does not wish to pursue dialysis if renal failure worsens discussed 10/19 that aggressive diuresis may worsen renal function, may not be successful since pulmonary pressures are high (3) Cellulitis of both lower extremities: Cellulitis of bilateral lower extremities, left > right-improving daily continues to be afebrile, no leukocytosis, not septic no erythema on right leg, no erythema on left leg -continue aztreonam IV, stop Daptomycin Continue to work on diuresis. -Checking wound culture from draining ulceration on the left leg left leg wound with soft debridement 10/16 allergies limits antibiotic choices will need to complete 14 days total treatment, likely to use Aztreonam plans to go to SNF for rehab with antibiotics can use US guided catheter (4) Depression: Continue bupropion extended release 300 mg p.o. every morning (5) Rheumatoid arthritis: Continue prednisone 5 mg p.o. every morning. Monitor for potential need for stress dose steroids, vitals and electrolytes are stable (6) GERD (gastroesophageal reflux disease): Continue pantoprazole 40 mg every morning (7) Hypertension: controlled -continue metoprolol (8) Diabetes mellitus, type 2: Continue holding home Lantus 8 units subcu at bedtime Glucose controlled here Continue Accu-Cheks before meals and at bedtime with NovoLog coverage per scale (9) Asthma: Continue zafirlukast 20 mg every 12 hours, guaifenesin 1200 mg p.o. every 12 hours, and budesonide- formoterol HFA. no acute issues (10) History of DVT (deep vein thrombosis): h/o Protein S deficiency, cannot tolerate anticoag due to recurrent bleeding (11) Back pain: In the right mid to lower back paraspinous muscles, tender to palpation No previous imaging done Check CT of thoracic and lumbar spine -- no acute fractures, no compression fractures suspect this is due to muscular pain, spasms -Continue hydrocodone prn -Continue Tylenol prn, Voltaren gel as needed heating pad add on lidocaine patch gave dose of Baclofen 5mg on 10/17 with no relief, no side effects gave dose of Baclofen 10mg on 10/18 with minimal relief, no side effects gave another dose of Baclofen in the evening on 10/19 to help her rest, she now is sleeping all day today avoid any further Baclofen, it has been discontinued (12) Abnormal ECG: serial trop negative, ST an TW changes lateral leads no chest pain, not concerning (13) Leg wound, left: Wound care consultation placed Continue OPTi foam Check wound culture (14) Wound of foot: As above (15) Open wound, hand: As above (16) DVT prophylaxis: Heparin SQ Dispo-continued stay, try to diurese with higher doses of Bumex PT/OT consults will be placed (17) Adverse drug effect: see above with Baclofen discussion Admission and Anticipated Discharge Date Admission Date: October 13, 2019 Subjective patient very lethargic today, sleeping all day likely due to Baclofen last night, RN did not give to patient this morning, will discontinue labs show that Cr is stable at 3.7, electrolytes stable weight is down to 208 from 210 earlier in the stay unsure if patient's back pain is better since she is sleeping updated her at the bedside he said that she sleeps a lot at home he says she did not sleep well the past few nights due to pain, so likely very tired in addition to the Baclofen explained that we would not use any more Baclofen Review of Systems Review of Systems: Unobtainable due to reduced consciousness Physical Exam Constitutional: well developed, well nourished, + lethargic, + overweight and + edematous; no acute distress Eyes: PERRL, conjunctivae normal, anicteric sclerae ENMT: external ear and nose normal, oropharynx normal Neck: trachea midline, no thyromegaly Respiratory: normal respiratory effort, lungs clear to auscultation Cardiovascular: Rate/Rhythm: regular rate and regular rhythm Heart Sounds: normal S1 and normal S2; no murmur Vessels: no JVD Extremities: normal capillary refill and + edema (+1 bilaterally, non-pitting) Gastrointestinal (Abdomen): normal bowel sounds, soft, nontender, no hepatosplenomegaly Musculoskeletal: no cyanosis or clubbing, extremities motor strength 5/5 (right paraspinal muscle tendernss in lumbar spine) Skin: + wound (left medial lower leg, sloughing of skin); no rashes and no erythema Neurologic: patellar DTR's 2+ bilat, sensation intact and PERRL, EOMI, accommodation nl, no face palsy, no dysarthria + obtunded Psychiatric: Orientation: + not alert Lymphatic: no cervical or axillary lymphadenopathy Results & Data Results & Data ([facility]) Vital Signs (Past 12 Hours) Vital Signs Temp Pulse Resp BP BP Pulse Ox 10/21/19 15:50 36.5 C 77 16 150/68 H 96 10/21/19 09:54 36.6 C 90 16 177/67 H 99 Laboratory Results Laboratory Results - last 24 hr 10/20/19 10/20/19 10/21/19 17:19 20:41 05:37 Sodium 137 Potassium 4.0 Chloride 104 Carbon Dioxide 24 Anion Gap 8.0 BUN 53 H Creatinine 3.74 H Est Cr Clr Drug Dosing 13.4 Est GFR ( Amer) 12.4 Est GFR (Non-Af Amer) 10.7 BUN/Creatinine Ratio 14.2 Glucose 138 H POC Glucose 132 H 166 H Calcium 9.6 10/21/19 10/21/19 08:20 12:02 Sodium Potassium Chloride Carbon Dioxide Anion Gap BUN Creatinine Est Cr Clr Drug Dosing Est GFR ( Amer) Est GFR (Non-Af Amer) BUN/Creatinine Ratio Glucose POC Glucose 142 H 165 H Calcium Medications Administered Current Inpatient Medications Acetaminophen (Acetaminophen 325 Mg Tab) 650 mg PO Q8H PRN PRN Reason: Pain or Fever Stop: 11/13/19 01:32 Last Admin: 10/15/19 09:07 Dose: 650 mg Documented by: Hydrocodone Bitart/Acetaminophen (Hydrocodone/Acetamophen 5/325mg Tab) 1 tab PO Q6H PRN PRN Reason: Pain Stop: 10/28/19 16:59 Last Admin: 10/18/19 20:34 Dose: 1 tab Documented by: Al Hydrox/Mg Hydrox/Simethicone (Aluminum/Magnesium Susp 30 Ml Udc) 15 ml PO Q4H PRN PRN Reason: Dyspepsia Stop: 11/13/19 01:32 Albuterol (Albuterol Hfa 8 Gm Inhaler) 2 puffs INH QID PRN PRN Reason: Shortness Of Breath Or Wheezin Stop: 11/13/19 08:59 Last Admin: 10/21/19 02:14 Dose: 2 puffs Documented by: Anastrozole (Anastrozole 1 Mg Tab) 1 mg PO QPM JESSICA Stop: 11/13/19 20:59 Last Admin: 10/20/19 20:21 Dose: 1 mg Documented by: Aspirin (Aspirin 81 Mg Ectab) 81 mg PO QPM JESSICA Stop: 11/13/19 20:59 Last Admin: 10/20/19 20:22 Dose: 81 mg Documented by: Aztreonam (Aztreonam Consult Active) 1 ea N/A UD PRN PRN Reason: Consult Stop: 11/13/19 02:08 Brimonidine Tartrate (Brimonidine Tartrate 0.2% 5ml) 1 drops OPB BID JESSICA Stop: 11/13/19 01:32 Last Admin: 10/21/19 09:31 Dose: 1 drops Documented by: Bupropion HCl (Bupropion Xl 300 Mg Tabcr) 300 mg PO QAM JESSICA Stop: 11/13/19 08:59 Last Admin: 10/21/19 09:27 Dose: 300 mg Documented by: Calcium Carbonate (Calcium Carbonate 1250mg Tab) 1,250 mg PO QPM JESSICA Stop: 11/13/19 20:59 Last Admin: 10/20/19 20:25 Dose: 1,250 mg Documented by: Dextrose (Dextrose 50% 50 Ml Syringe) 25 - 50 ml IV UD PRN; Protocol PRN Reason: Hypoglycemia Protocol Stop: 11/13/19 01:32 Diclofenac Sodium (Diclofenac Sod 1% Gel 100 Gm Tube) 2 gm EXT QID PRN PRN Reason: back pain Stop: 11/13/19 01:32 Last Admin: 10/18/19 00:21 Dose: 2 gm Documented by: Dorzolamide HCl (Dorzolamide Hcl 2% Oph Soln 10 Ml Btl) 1 drops OPR BID JESSICA Stop: 11/13/19 01:32 Last Admin: 10/21/19 09:31 Dose: 1 drops Documented by: Ferrous Sulfate (Ferrous Sulfate 325 Mg Tab) 325 mg PO BID JESSICA Stop: 11/13/19 01:32 Last Admin: 10/21/19 09:30 Dose: 325 mg Documented by: Fluticasone/Vilanterol (Fluticasone/Vilanterol 100/25mcg 14 Puffs/Inhaler) 1 puffs INH DAILY JESSICA; Protocol Stop: 11/13/19 21:29 Last Admin: 10/21/19 09:25 Dose: 1 puffs Documented by: Glucagon (Glucagon For Inj 1 Mg Vial) 1 mg SQ UD PRN; Protocol PRN Reason: Hypoglycemia Protocol Stop: 11/13/19 01:32 Glucose (Glucose 10 Tabs/Tube) 4 - 8 tabs PO UD PRN; Protocol PRN Reason: Hypoglycemia Protocol Stop: 11/13/19 01:32 Glucose (Glucose 40% Gel 15 Gm Tube) 15 - 30 gm PO UD PRN; Protocol PRN Reason: Hypoglycemia Protocol Stop: 11/13/19 01:32 Guaifenesin (Guaifenesin 600 Mg Tabcr) 1,200 mg PO Q12 JESSICA Stop: 11/13/19 08:59 Last Admin: 10/21/19 09:29 Dose: 1,200 mg Documented by: Heparin Sodium (Porcine) (Heparin 100 Unit/Ml 5ml Flush) 5 ml FLUSH PRN PRN PRN Reason: Flush Stop: 11/12/19 23:10 Last Admin: 10/21/19 05:37 Dose: 5 ml Documented by: Aztreonam 1,000 mg/ Dextrose 110 mls @ 100 mls/hr IV Q8H JESSICA; Protocol Stop: 10/28/19 09:59 Last Infusion: 10/21/19 11:21 Dose: Infused Documented by: Bumetanide 3 mg/ Syringe 12 mls @ 4 mls/min IV DAILY@0900,1700 [facility] Stop: 11/18/19 16:59 Last Admin: 10/21/19 09:24 Dose: 4 mls/min Documented by: Insulin Aspart (Insulin Aspart 100 Units/Ml 3 Ml Pen) 0 units SC ACHS [facility] Stop: 11/13/19 07:29 Last Admin: 10/21/19 13:19 Dose: 1 units Documented by: Lidocaine (Lidocaine 5% 1 Patch) 1 patch TD QAM [facility] Stop: 11/14/19 14:29 Last Admin: 10/21/19 09:25 Dose: 1 patch Documented by: Magnesium Hydroxide (Magnesium Hydroxide Susp 30 Ml Udc) 30 ml PO Q12H PRN PRN Reason: Constipation Stop: 11/13/19 01:32 Metoprolol Tartrate (Metoprolol Tartrate 25 Mg Tab) 12.5 mg PO BID [facility] Stop: 11/13/19 01:32 Last Admin: 10/21/19 09:28 Dose: 12.5 mg Documented by: Miconazole Nitrate (Miconazole Nitrate Powder 43 Gm) 1 appln EXT PRN PRN PRN Reason: Rash under skin folds Stop: 11/13/19 01:32 Miscellaneous (Carbohydrates For Hypoglycemia ) 15 - 30 gm PO UD PRN PRN Reason: Hypoglycemia Protocol Stop: 11/13/19 01:32 Miscellaneous (Remove Lidoderm Patch) 1 ea N/A DAILY@2100 [facility] Stop: 11/14/19 20:59 Last Admin: 10/20/19 20:34 Dose: 1 ea Documented by: Montelukast Sodium (Montelukast Sodium 10 Mg Tablet) 10 mg PO HS [facility] Stop: 11/13/19 01:32 Last Admin: 10/20/19 20:25 Dose: 10 mg Documented by: Multivitamins/Minerals (Cerovite Adv Formula Tab) 1 tab PO QAM [facility] Stop: 11/13/19 08:59 Last Admin: 10/21/19 09:27 Dose: 1 tab Documented by: Nystatin (Nystatin Powder 15gm Btl) 1 appln EXT Q12 [facility] Stop: 11/18/19 20:59 Last Admin: 10/21/19 09:30 Dose: 1 appln Documented by: Ondansetron HCl (Ondansetron Inj 2 Mg/Ml 2 Ml Vial) 4 mg IV Q6H PRN PRN Reason: Nausea Stop: 11/13/19 01:32 Pantoprazole Sodium ([facility]opraz[facility] 40 Mg Tab) [facility] [place]: 11/13/19 08:59 Last Admin: 10/21/19 09:27 Dose: 40 mg Documented by: Potassium Chloride (Potassium Chloride 20 Meq Tabcr) 20 meq PO BID [facility] Stop: 11/18/19 08:59 Last Admin: 10/21/19 09:31 Dose: 20 meq Documented by: Prednisone (Prednisone 5 Mg Tab) 5 mg PO [facility] Stop: 11/13/19 08:59 Last Admin: 10/21/19 09:27 Dose: 5 mg Documented by: Sodium Bicarbonate (Sodium Bicarbonate 650 Mg Tab) 650 mg PO BID [facility] Stop: 11/13/19 01:32 Last Admin: 10/21/19 09:28 Dose: 650 mg Documented by: Vitamin D (Cholecalciferol 1,000 Units 25 Mcg Tab) 5,000 units PO [facility] Stop: 11/13/19 08:59 Last Admin: 10/21/19 09:26 Dose: 5,000 units Documented by: PG Care Time/CCT Total # of Minutes Spent Total Time Spent with Patient: Total time spent is greater than 50% in coordination of care (as documented) at patient's floor/unit and/or counseling p atient: Coding Level of Care Code 65519 Subseq Hosp Care Lvl 3 Diagnoses Acute exacerbation of CHF (congestive heart failure) I50.9 Heart failure type: unspecified Chronic kidney disease, stage V N18.5 Cellulitis of both lower extremities L03.115; L03.116 Depression F32.9 Rheumatoid arthritis M06.9 GERD (gastroesophageal reflux disease) K21.9 Hypertension I10 Diabetes mellitus, type 2 E11.9 Asthma J45.909 History of DVT (deep vein thrombosis) Z86.718 Back pain M54.9 Abnormal ECG R94.31 Leg wound, left S81.802A Wound of foot S91.309A Open wound, hand S61.409A DVT prophylaxis Z29.9 Adverse drug effect T50.905A (1) Acute exacerbation of CHF (congestive heart failure) Heart failure type: unspecified Qualified Code(s): I50.9 - Heart failure, unspecified
[2019-10-21] MEDS: ANASTROZOLE 1 MG TAB PO SCH (21:54)
[2019-10-21] MEDS: ASPIRIN 81 MG ECTAB PO SCH (21:55)
[2019-10-21] MEDS: MONTELUKAST SODIUM 10 MG TABLET PO SCH (21:55)
[2019-10-21] MEDS: CALCIUM CARBONATE 1250MG TAB PO SCH (21:55)
[2019-10-22] MEDS: AZTREONAM 1,000 MG in DEXTROSE 5% 100 ML IV SCH ×3 (02:18→17:36)
[2019-10-22] MEDS: HEPARIN 100 UNIT/ML 5ML FLUSH FLUSH PRN (03:28)
[2019-10-22] MEDS: ALBUTEROL HFA 8 GM INHALER INH PRN (07:58)
[2019-10-22 08:08] LABS: BUN Creatinine Ratio 15.1 (10-20); Calcium 9.3 mg/dl (8.5-10.1); Creatinine Clr Calc Pharmacy 14.4 ml/min; Est GFR (African American) 13.5; Est GFR (Non-African American) 11.6; Potassium 3.9 mmol/L (3.5-5.1)
[2019-10-22] MEDS: BRIMONIDINE TARTRATE 0.2% 5ML OPB SCH ×2 (09:12→19:20)
[2019-10-22] MEDS: FLUTICASONE/VILANTEROL 100/25MCG 14 PUFFS/INHALER INH SCH (09:13)
[2019-10-22] MEDS: FERROUS SULFATE 325 MG TAB PO SCH ×2 (09:14→19:16)
[2019-10-22] MEDS: predniSONE 5 MG TAB PO SCH (09:14)
[2019-10-22] MEDS: BUMETANIDE 3 MG in SYRINGE 0 ML IV SCH ×2 (09:14→17:36)
[2019-10-22] MEDS: SODIUM BICARBONATE 650 MG TAB PO SCH ×2 (09:15→19:18)
[2019-10-22] MEDS: NYSTATIN POWDER 15GM BTL EXT SCH ×2 (09:15→19:20)
[2019-10-22] MEDS: POTASSIUM CHLORIDE 20 MEQ TABCR PO SCH ×2 (09:16→19:19)
[2019-10-22] MEDS: BuPROPion XL 300 MG TABCR PO SCH (09:16)
[2019-10-22] MEDS: CHOLECALCIFEROL 1,000 UNITS 25 MCG TAB PO SCH (09:17)
[2019-10-22] MEDS: CEROVITE ADV FORMULA TAB PO SCH (09:17)
[2019-10-22] MEDS: METOPROLOL TARTRATE 25 MG TAB PO SCH ×2 (09:18→19:18)
[2019-10-22] MEDS: PANTOprazole 40 MG TAB PO SCH (09:19)
[2019-10-22] MEDS: guaiFENesin 600 MG TABCR PO SCH ×2 (09:19→19:17)
[2019-10-22] MEDS: LIDOCAINE 5% 1 PATCH TD SCH (09:20)
[2019-10-22] MEDS: DORZOLAMIDE HCL 2% OPH SOLN 10 ML BTL OPR SCH ×2 (09:20→19:15)
[2019-10-22] MEDS ORDERED: ALBUT/IPRATROP 3MG/0.5MG NEB 3 ML VIAL NEB PRN (10:10)
[2019-10-22 10:39] LABS: HCO3 ABG 22 mmol/L (19-24); Oxygen Saturation ABG 97.1 % (90-95); PCO2 ABG 41 mmHg (35-46); PO2 ABG 93 mmHg (80-95); pH ABG 7.35 (7.35-7.45)
[2019-10-22 10:40] LABS: Allen Test Pos (Pos)
--- NOTE | 2019-10-22 10:55 | XRay Report ---
XR chest 1V portable CLINICAL HISTORY: Hypoxia COMPARISON STUDY: Chest CT August 30, 2019. Chest radiograph October 13, 2019. FINDINGS: Right subclavian [id number] is in place. Note is made of moderate cardiomegaly. There ar e small bilateral pleural effusions. There is pulmonary vascular congestion with suspected mild pulmo nary edema. Left basilar opacity is noted. There is no pneumothorax. IMPRESSION: 1. Small bilateral pleural effusions. Left basilar opacity that may reflect atelectasis or consolidat ion. Radiographic follow up is recommended. 2. Pulmonary vascular congestion with suspected mild pulmonary edema. ACT 112: Negative or not required by law. Electronically signed by: Salvatore Sanderson M.D. 10/22/2019 10:54 AM
[2019-10-22] MEDS ORDERED: methylPREDNISolone 40 MG in SYRINGE 0 ML IV ONE (11:00)
[2019-10-22] MEDS: ALBUT/IPRATROP 3MG/0.5MG NEB 3 ML VIAL NEB SCH ×3 (11:11→19:04)
[2019-10-22] MEDS: INSULIN ASPART 100 UNITS/ML 3 ML PEN SC SCH ×4 (11:31→20:38)
[2019-10-22] MEDS: HYDROCODONE/ACETAMOPHEN 5/325MG TAB PO PRN (12:16)
--- NOTE | 2019-10-22 16:59 | Hospitalist Progress Note ---
Date of Service October 22, 2019 Assessment & Plan (1) Acute exacerbation of CHF (congestive heart failure): presented with volume overload, edema in legs led to blister that opened, led to cellulitis Acute on chronic diastolic CHF, Pulm HTN (pulmonary pressures 40-60mmHg) likely a degree of right heart failure which will make it difficult to remove fluid ECHO 07/2019 with preserved EF, mild AI, mild MR, elevated RVSP weight is down to 208lbs, improved from 210lbs a few days ago Cr is stable at 3.49 continue Bumex 3mg IV BID, discussed that it could worsen renal function, she understands Continue strict I/Os, daily weights, low Na+ diet Continue aspirin 81 mg daily, and metoprolol tartrate 12.5 mg p.o. twice daily follow BMP in the morning plan to use Bumex on discharge, unsure she would need 3mg BID, likely a lower dose would be okay for maintenance she was only taking 1mg daily prior to admission with worsening edema (2) Toxic encephalopathy: due to Baclofen 10mg that she received in the evening on 10/19 she slept all day on 10/20 she is waking up some today but with confusion, calling out that she is in pain, says "I hurt" breathing is stable, maintaining oxygen will give Baclofen time to wear off hope that she would be more alert and oriented by tomorrow (3) Back pain: In the right mid to lower back paraspinous muscles, very tender to palpation Check CT of thoracic and lumbar spine -- no acute fractures, no compression fractures suspect this is due to muscular pain, spasms -hold Hydrocodone due to being obtunded -Continue Tylenol prn, Voltaren gel as needed heating pad lidocaine patch was still in pain on 10/17, nothing was helping in the beginning of the week gave dose of Baclofen 5mg on 10/17 with no relief, no side effects gave dose of Baclofen 10mg on 10/18 with minimal relief, no side effects gave another dose of Baclofen 10mg in the evening on 10/19 to help her rest, resulted in toxic encephalopathy avoid any further Baclofen, it has been discontinued (4) Adverse drug effect: see above with Baclofen discussion (5) Chronic kidney disease, stage V: Creatinine 3.53 upon admission, within her usual range. stable at 3.49 today with diuresis, Bumex 3gm IV q12 more urine output, weight down 2 lbs K is stable Continue sodium bicarbonate, iron sulfate, vitamin D3, and calcium carbonate Follow serial BMP Does not wish to pursue dialysis if renal failure worsens discussed 10/19 that aggressive diuresis may worsen renal function, may not be successful since pulmonary pressures are high (6) Cellulitis of both lower extremities: Cellulitis of bilateral lower extremities, left > right-improving daily continues to be afebrile, no leukocytosis, not septic no erythema on right leg, no erythema on left leg Continue to work on diuresis to help prevent further blistering and cellulitis *Wound culture 10/14 grew out Pseudomona continue Aztreonam for treatment, would need 14 days total left leg wound with soft debridement 10/16 allergies limits antibiotic choices will need to complete 14 days total treatment, likely to use Aztreonam plans to go to SNF for rehab with antibiotics can use US guided catheter, obtain prior to discharge (7) Asthma: asthma exacerbation this morning with pursed lip breathing and wheezing suspect that being obtunded caused her to aspirate slightly, could have irritated large airways responded well to Solu Medrol 40mg IV and Duoneb continue Solu Medrol 40mg q12, Duoneb QID scheduled and q2 PRN breathing much more stable in the afternoon, comfortable on room air (8) Depression: Continue bupropion extended release 300 mg p.o. every morning (9) GERD (gastroesophageal reflux disease): Continue pantoprazole 40 mg every morning (10) Hypertension: controlled -continue metoprolol (11) Diabetes mellitus, type 2: Continue holding home Lantus 8 units subcu at bedtime Glucose controlled here Continue Accu-Cheks before meals and at bedtime with NovoLog coverage per scale (12) Rheumatoid arthritis: Continue prednisone 5 mg p.o. every morning. Monitor for potential need for stress dose steroids, vitals and electrolytes are stable (13) History of DVT (deep vein thrombosis): h/o Protein S deficiency, cannot tolerate anticoag due to recurrent bleeding (14) DVT prophylaxis: Heparin SQ Dispo- anticipate her being here several more days due to toxic encephalopathy plan will be for [facility] on discharge to finish course of Aztreonam for cellulitis/wound will need to be on Bumex, likely 2mg or 3mg PO BID patient has multiple co-morbidities, several hospitalizations this year she has poor senior care prognosis with her stage V kidney disease if she fails to improve or if she gets worse may need to get palliative care consult Admission and Anticipated Discharge Date Admission Date: October 13, 2019 Subjective patient a little more alert today but very confused, not making much sense she was able to take medications with apple sauce called to room as she was having some wheezing and pursed lip breathing improved with Solu Medrol and Duoneb treatment ABG with normal CO2 and normal PaO2, CXR with some atelectasis and mild pulmonary edema suspect she may have had some aspiration yesterday with being asleep, could have irritated large airways her CR continues to be stable with the Bumex, down to 3.49 today, electrolytes stable updated her daughter over the phone this morning updated her at the bedside this evening visited patient total of three times today Review of Systems Review of Systems: Unobtainable due to cognitive status Physical Exam Constitutional: well developed, well nourished, + lethargic and + overweight; no acute distress Eyes: PERRL, conjunctivae normal, anicteric sclerae ENMT: external ear and nose normal, oropharynx normal Neck: trachea midline, no thyromegaly Respiratory: normal respiratory effort, lungs clear to auscultation Cardiovascular: Rate/Rhythm: regular rate and regular rhythm Heart Sounds: normal S1 and normal S2; no murmur Vessels: no JVD Extremities: normal capillary refill and + edema (trace bilaterally, improved a lot in two days) Gastrointestinal (Abdomen): normal bowel sounds, soft, nontender, no hepatosplenomegaly Musculoskeletal: no cyanosis or clubbing, extremities motor strength 5/5 (right paraspinal muscle tendernss in lumbar spine) Skin: + wound (left medial lower leg, sloughing of skin); no rashes and no erythema Neurologic: patellar DTR's 2+ bilat, sensation intact and PERRL, EOMI, accommodation nl, no face palsy, no dysarthria + obtunded Psychiatric: A+Ox3, euthymic affect Orientation: + not alert Lymphatic: no cervical or axillary lymphadenopathy Results & Data Results & Data ([facility]) Vital Signs (Past 12 Hours) Vital Signs Temp Pulse Pulse Resp BP BP Pulse Ox 10/22/19 16:05 36.9 C 87 20 140/82 93 10/22/19 15:17 70 18 98 10/22/19 11:14 75 18 98 10/22/19 08:00 36.9 C 85 22 179/76 H 96 10/22/19 07:58 93 H 24 93 Laboratory Results Laboratory Results - last 24 hr 10/21/19 10/21/19 10/22/19 17:03 20:41 07:37 ABG pH ABG pCO2 ABG pO2 ABG HCO3 ABG O2 Saturation ABG Base Excess Rudy Test Barometric Pressure Oxygen Given Sodium 137 Potassium 3.9 Chloride 104 Carbon Dioxide 24 Anion Gap 9.0 BUN 53 H Creatinine 3.49 H Est Cr Clr Drug Dosing 14.4 Est GFR ( Amer) 13.5 Est GFR (Non-Af Amer) 11.6 BUN/Creatinine Ratio 15.1 Glucose 138 H POC Glucose 132 H 132 H Calcium 9.3 10/22/19 10/22/19 10/22/19 08:39 10:26 14:31 ABG pH 7.35 ABG pCO2 41 ABG pO2 93 ABG HCO3 22 ABG O2 Saturation 97.1 H ABG Base Excess -3.0 Rudy Test Pos Barometric Pressure 734.0 Oxygen Given 2L Sodium Potassium Chloride Carbon Dioxide Anion Gap BUN Creatinine Est Cr Clr Drug Dosing Est GFR ( Amer) Est GFR (Non-Af Amer) BUN/Creatinine Ratio Glucose POC Glucose 131 H 164 H Calcium Medications Administered Current Inpatient Medications Acetaminophen (Acetaminophen 325 Mg Tab) 650 mg PO Q8H PRN PRN Reason: Pain or Fever Stop: 11/13/19 01:32 Last Admin: 10/15/19 09:07 Dose: 650 mg Documented by: Hydrocodone Bitart/Acetaminophen (Hydrocodone/Acetamophen 5/325mg Tab) 1 tab PO Q6H PRN PRN Reason: Pain Stop: 10/28/19 16:59 Last Admin: 10/22/19 12:16 Dose: 1 tab Documented by: Al Hydrox/Mg Hydrox/Simethicone (Aluminum/Magnesium Susp 30 Ml Udc) 15 ml PO Q4H PRN PRN Reason: Dyspepsia Stop: 11/13/19 01:32 Albuterol (Albuterol Hfa 8 Gm Inhaler) 2 puffs INH QID PRN PRN Reason: Shortness Of Breath Or Wheezin Stop: 11/13/19 08:59 Last Admin: 10/22/19 07:58 Dose: 2 puffs Documented by: Albuterol (Albut/Ipratrop 3mg/0.5mg Neb 3 Ml Vial) 3 ml NEB QIDR JESSICA Stop: 11/21/19 10:59 Last Admin: 10/22/19 15:15 Dose: 3 ml Documented by: Albuterol (Albut/Ipratrop 3mg/0.5mg Neb 3 Ml Vial) 3 ml NEB Q2R PRN PRN Reason: Dyspnea Stop: 11/21/19 10:09 Anastrozole (Anastrozole 1 Mg Tab) 1 mg PO QPM JESSICA Stop: 11/13/19 20:59 Last Admin: 10/21/19 21:54 Dose: Not Given Documented by: Aspirin (Aspirin 81 Mg Ectab) 81 mg PO QPM JESSICA Stop: 11/13/19 20:59 Last Admin: 10/21/19 21:55 Dose: Not Given Documented by: Aztreonam (Aztreonam Consult Active) 1 ea N/A UD PRN PRN Reason: Consult Stop: 11/13/19 02:08 Brimonidine Tartrate (Brimonidine Tartrate 0.2% 5ml) 1 drops OPB BID [facility] Stop: 11/13/19 01:32 Last Admin: 10/22/19 09:12 Dose: 1 drops Documented by: Bupropion HCl (Bupropion Xl 300 Mg Tabcr) 300 mg PO QAM [facility] Stop: 11/13/19 08:59 Last Admin: 10/22/19 09:16 Dose: 300 mg Documented by: Calcium Carbonate (Calcium Carbonate 1250mg Tab) 1,250 mg PO QPM JESSICA Stop: 11/13/19 20:59 Last Admin: 10/21/19 21:55 Dose: Not Given Documented by: Dextrose (Dextrose 50% 50 Ml Syringe) 25 - 50 ml IV UD PRN; Protocol PRN Reason: Hypoglycemia Protocol Stop: 11/13/19 01:32 Diclofenac Sodium (Diclofenac Sod 1% Gel 100 Gm Tube) 2 gm EXT QID PRN PRN Reason: back pain Stop: 11/13/19 01:32 Last Admin: 10/18/19 00:21 Dose: 2 gm Documented by: Dorzolamide HCl (Dorzolamide Hcl 2% Oph Soln 10 Ml Btl) 1 drops OPR BID [facility] Stop: 11/13/19 01:32 Last Admin: 10/22/19 09:20 Dose: 1 drops Documented by: Ferrous Sulfate (Ferrous Sulfate 325 Mg Tab) 325 mg PO BID [facility] Stop: 11/13/19 01:32 Last Admin: 10/22/19 09:14 Dose: 325 mg Documented by: Fluticasone/Vilanterol (Fluticasone/Vilanterol 100/25mcg 14 Puffs/Inhaler) 1 puffs INH DAILY [facility]; Protocol Stop: 11/13/19 21:29 Last Admin: 10/22/19 09:13 Dose: 1 puffs Documented by: Glucagon (Glucagon For Inj 1 Mg Vial) 1 mg SQ UD PRN; Protocol PRN Reason: Hypoglycemia Protocol Stop: 11/13/19 01:32 Glucose (Glucose 10 Tabs/Tube) 4 - 8 tabs PO UD PRN; Protocol PRN Reason: Hypoglycemia Protocol Stop: 11/13/19 01:32 Glucose (Glucose 40% Gel 15 Gm Tube) 15 - 30 gm PO UD PRN; Protocol PRN Reason: Hypoglycemia Protocol Stop: 11/13/19 01:32 Guaifenesin (Guaifenesin 600 Mg Tabcr) 1,200 mg PO Q12 [facility] Stop: 11/13/19 08:59 Last Admin: 10/22/19 09:19 Dose: 1,200 mg Documented by: Heparin Sodium (Porcine) (Heparin 100 Unit/Ml 5ml Flush) 5 ml FLUSH PRN PRN PRN Reason: Flush Stop: 11/12/19 23:10 Last Admin: 10/22/19 03:28 Dose: 5 ml Documented by: Aztreonam 1,000 mg/ Dextrose 110 mls @ 100 mls/hr IV Q8H [facility]; Protocol Stop: 10/28/19 09:59 Last Infusion: 10/22/19 12:10 Dose: Infused Documented by: Bumetanide 3 mg/ Syringe 12 mls @ 4 mls/min IV DAILY@0900,1700 [facility] Stop: 11/18/19 16:59 Last Admin: 10/22/19 09:14 Dose: 4 mls/min Documented by: Methylprednisolone 40 mg/ (Syringe) 0.64 mls @ 1.5 mls/min IV Q12 [facility] Stop: 11/21/19 20:59 Insulin Aspart (Insulin Aspart 100 Units/Ml 3 Ml Pen) 0 units SC ACHS [facility] Stop: 11/13/19 07:29 Last Admin: 10/22/19 14:35 Dose: 1 units Documented by: Lidocaine (Lidocaine 5% 1 Patch) 1 patch TD QAM [facility] Stop: 11/14/19 14:29 Last Admin: 10/22/19 09:20 Dose: 1 patch Documented by: Magnesium Hydroxide (Magnesium Hydroxide Susp 30 Ml Udc) 30 ml PO Q12H PRN PRN Reason: Constipation Stop: 11/13/19 01:32 Metoprolol Tartrate (Metoprolol Tartrate 25 Mg Tab) 12.5 mg PO BID [facility] Stop: 11/13/19 01:32 Last Admin: 10/22/19 09:18 Dose: 12.5 mg Documented by: Miconazole Nitrate (Miconazole Nitrate Powder 43 Gm) 1 appln EXT PRN PRN PRN Reason: Rash under skin folds Stop: 11/13/19 01:32 Miscellaneous (Carbohydrates For Hypoglycemia ) 15 - 30 gm PO UD PRN PRN Reason: Hypoglycemia Protocol Stop: 11/13/19 01:32 Miscellaneous (Remove Lidoderm Patch) 1 ea N/A DAILY@2100 [facility] Stop: 11/14/19 20:59 Last Admin: 10/21/19 21:55 Dose: 1 ea Documented by: Montelukast Sodium (Montelukast Sodium 10 Mg Tablet) 10 mg PO HS [facility] Stop: 11/13/19 01:32 Last Admin: 10/21/19 21:55 Dose: Not Given Documented by: Multivitamins/Minerals (Cerovite Adv Formula Tab) [facility] [place]: 11/13/19 08:59 Last Admin: 10/22/19 09:17 Dose: 1 tab Documented by: Nystatin (Nystatin Powder 15gm Btl) 1 appln EXT Q12 [facility] Stop: 11/18/19 20:59 Last Admin: 10/22/19 09:15 Dose: 1 appln Documented by: Ondansetron HCl (Ondansetron Inj 2 Mg/Ml 2 Ml Vial) 4 mg IV Q6H PRN PRN Reason: Nausea Stop: 11/13/19 01:32 Pantoprazole Sodium (Pantoprazole 40 Mg Tab) 40 mg PO QAM [facility] Stop: 11/13/19 08:59 Last Admin: 10/22/19 09:19 Dose: 40 mg Documented by: Potassium Chloride (Potassium Chloride 20 Meq Tabcr) 20 meq PO BID [facility] Stop: 11/18/19 08:59 Last Admin: 10/22/19 09:16 Dose: 20 meq Documented by: Prednisone (Prednisone 5 Mg Tab) 5 mg PO QAM [facility] Stop: 11/13/19 08:59 Last Admin: 10/22/19 09:14 Dose: 5 mg Documented by: Sodium Bicarbonate (Sodium Bicarbonate 650 Mg Tab) 650 mg PO BID [facility] Stop: 11/13/19 01:32 Last Admin: 10/22/19 09:15 Dose: 650 mg Documented by: Vitamin D (Cholecalciferol 1,000 Units 25 Mcg Tab) [facility] [place]: 11/13/19 08:59 Last Admin: 10/22/19 09:17 Dose: 5,000 units Documented by: PG Care Time/CCT Total # of Minutes Spent Total Time Spent with Patient: Total time spent is greater than 50% in coordination of care (as documented) at patient's floor/unit and/or counseling patient: Coding Level of Care Code 79448 Subseq Hosp Care Lvl 3 Diagnoses Acute exacerbation of CHF (congestive heart failure) I50.9 Heart failure type: unspecified Toxic encephalopathy G92 Back pain M54.9 Adverse drug effect T50.905A Chronic kidney disease, stage V N18.5 Cellulitis of both lower extremities L03.115; L03.116 Asthma J45.909 Depression F32.9 GERD (gastroesophageal reflux disease) K21.9 Hypertension I10 Diabetes mellitus, type 2 E11.9 Rheumatoid arthritis M06.9 History of DVT (deep vein thrombosis) Z86.718 DVT prophylaxis Z29.9 (1) Acute exacerbation of CHF (congestive heart failure) Heart failure type: unspecified Qualified Code(s): I50.9 - Heart failure, unspecified
[2019-10-22] MEDS: methylPREDNISolone 40 MG in SYRINGE 0 ML IV SCH (19:16)
[2019-10-22] MEDS: MONTELUKAST SODIUM 10 MG TABLET PO SCH (19:17)
[2019-10-22] MEDS: ASPIRIN 81 MG ECTAB PO SCH (19:20)
[2019-10-22] MEDS: CALCIUM CARBONATE 1250MG TAB PO SCH (19:21)
[2019-10-22] MEDS: ANASTROZOLE 1 MG TAB PO SCH (20:37)
[2019-10-23] MEDS: ACETAMINOPHEN 325 MG TAB PO PRN ×2 (01:22→16:32)
[2019-10-23] MEDS: DICLOFENAC SOD 1% GEL 100 GM TUBE EXT PRN (01:27)
[2019-10-23] MEDS: AZTREONAM 1,000 MG in DEXTROSE 5% 100 ML IV SCH ×3 (01:33→18:13)
[2019-10-23] MEDS: HEPARIN 100 UNIT/ML 5ML FLUSH FLUSH PRN ×3 (02:36→20:36)
[2019-10-23 06:06] LABS: Hemoglobin 9.3 g/dL (12.0-16.0); Mean Corpuscular Hemoglobin 30.9 pg (25-34); Mean Corpuscular Hgb Conc 32.1 g/dL (32-36); Mean Corpuscular Volume 96.3 fL (80-100); Platelet Count 287 K/uL (130-400); RDW Coefficient of Variation 13.9 % (11.5-14.5); RDW Standard Deviation 48.1 fL (36.4-46.3); Red Blood Count 3.01 M/uL (4.2-5.4); White Blood Count 7.91 K/uL (4.8-10.8)
[2019-10-23] MEDS: ALBUT/IPRATROP 3MG/0.5MG NEB 3 ML VIAL NEB SCH ×4 (07:32→19:21)
[2019-10-23] MEDS: FLUTICASONE/VILANTEROL 100/25MCG 14 PUFFS/INHALER INH SCH (09:36)
[2019-10-23] MEDS: BRIMONIDINE TARTRATE 0.2% 5ML OPB SCH ×2 (09:36→20:36)
[2019-10-23] MEDS: INSULIN ASPART 100 UNITS/ML 3 ML PEN SC SCH ×4 (09:37→21:13)
[2019-10-23] MEDS: BUMETANIDE 3 MG in SYRINGE 0 ML IV SCH ×2 (09:38→18:13)
[2019-10-23] MEDS: PANTOprazole 40 MG TAB PO SCH (09:39)
[2019-10-23] MEDS: BuPROPion XL 300 MG TABCR PO SCH (09:39)
[2019-10-23] MEDS: SODIUM BICARBONATE 650 MG TAB PO SCH ×2 (09:39→20:37)
[2019-10-23] MEDS: guaiFENesin 600 MG TABCR PO SCH ×2 (09:39→20:37)
[2019-10-23] MEDS: FERROUS SULFATE 325 MG TAB PO SCH ×2 (09:40→20:38)
[2019-10-23] MEDS: predniSONE 5 MG TAB PO SCH (09:40)
[2019-10-23] MEDS: LIDOCAINE 5% 1 PATCH TD SCH (09:42)
[2019-10-23] MEDS: METOPROLOL TARTRATE 25 MG TAB PO SCH ×2 (09:42→20:57)
[2019-10-23] MEDS: DORZOLAMIDE HCL 2% OPH SOLN 10 ML BTL OPR SCH ×2 (09:43→20:36)
[2019-10-23] MEDS: POTASSIUM CHLORIDE 20 MEQ TABCR PO SCH ×2 (09:43→20:37)
[2019-10-23] MEDS: CHOLECALCIFEROL 1,000 UNITS 25 MCG TAB PO SCH (09:43)
[2019-10-23] MEDS: NYSTATIN POWDER 15GM BTL EXT SCH ×2 (09:44→21:12)
[2019-10-23] MEDS: methylPREDNISolone 40 MG in SYRINGE 0 ML IV SCH ×2 (10:05→20:36)
[2019-10-23] MEDS: CEROVITE ADV FORMULA TAB PO SCH (10:06)
--- NOTE | 2019-10-23 12:24 | Hospitalist Progress Note ---
Date of Service October 23, 2019 Assessment & Plan (1) Acute exacerbation of CHF (congestive heart failure): presented with volume overload, edema in legs led to blister that opened, led to cellulitis Acute on chronic diastolic CHF, Pulm HTN (pulmonary pressures 40-60mmHg) likely a degree of right heart failure which has made it difficult to remove fluid ECHO 07/2019 with preserved EF, mild AI, mild MR, elevated RVSP weight is down 5kg Cr is stable at 3.49 continue Bumex 3mg IV BID, discussed that it could worsen renal function, she understands Continue strict I/Os, daily weights, low Na+ diet -follow BMP in the morning -plan to use Bumex on discharge, unsure she would need 3mg BID, likely a lower dose would be okay for maintenance -she was only taking 1mg daily prior to admission with worsening edema (2) Toxic encephalopathy: Most likely due to Baclofen 10mg that she received in the evening on 10/19 she slept all day on 10/20 and 10/21, confused 10/22 much more alert but remains confused ABG without CO2 retention breathing is stable, maintaining oxygen Continue to give Baclofen time to wear off -as slow recovery--> checked Brain MRI given h/o CVA to r/o acute CVA--> neg for acute CVA (3) Back pain: In the right mid to lower back paraspinous muscles, very tender to palpation Checked CT of thoracic and lumbar spine -- no acute fractures, no compression fractures suspect this is due to muscular pain, spasms Baclofen caused profound sedation-will not use again in future -ok to restart Hydrocodone as she never had a problem with this before and needs something for severe pain not relieved by APAP/lidocaine/Voltaren gel/heating pad (4) Adverse drug effect: see above with Baclofen discussion (5) Chronic kidney disease, stage V: Creatinine 3.53 upon admission, within her usual range. stable at 3.49 with diuresis, Bumex 3gm IV q12 K is stable Continue sodium bicarbonate, iron sulfate, vitamin D3, and calcium carbonate Follow serial BMP Does not wish to pursue dialysis if renal failure worsens discussed 10/19 that aggressive diuresis may worsen renal function, may not be successful since pulmonary pressures are high (6) Cellulitis of both lower extremities: Cellulitis of bilateral lower extremities, left > right-resolved continues to be afebrile, no leukocytosis, not septic Continue to work on diuresis to help prevent further blistering and cellulitis *Wound culture left leg ulcer 10/14 grew out Pseudomonas, pansensitive continue Aztreonam for treatment, would need 14 days total-last day of treatment 10/25 left leg wound with soft debridement 10/16 (7) Asthma: asthma exacerbation now since 10/21 with pursed lip breathing and wheezing suspect that being obtunded caused her to aspirate slightly, could have irritated large airways responding well to Solu Medrol 40mg IV and Duoneb continue Solu Medrol 40mg q12, Duoneb QID scheduled and q2 PRN -comfortable on room air (8) Depression: Continue bupropion extended release 300 mg p.o. every morning (9) GERD (gastroesophageal reflux disease): Continue pantoprazole 40 mg every morning (10) Hypertension: controlled -continue metoprolol (11) Diabetes mellitus, type 2: With hyperglycemia here with IV steroids -add back on Lantus 8 units subcu at bedtime Continue Accu-Cheks before meals and at bedtime with NovoLog coverage per scale (12) Rheumatoid arthritis: Continue prednisone 5 mg p.o. every morning. Monitor for potential need for stress dose steroids, vitals and electrolytes are stable (13) History of DVT (deep vein thrombosis): h/o Protein S deficiency, cannot tolerate anticoag due to recurrent bleeding (14) Laceration of arm: had injury to right forearm from BP cuff on 10/19 overnight requiring 8 simple interrupted sutures to stop bleeding -has thin skin from chronic prednisone and mild edema of arms, also was on SQ heaprin and on ASA -will need sutures removed on/around 10/26-10/28 can keep open to air (15) DVT prophylaxis: Heparin SQ was dcd due to heavy bleeding from arm lac SCDs in place Dispo- anticipate her being here several more days due to toxic encephalopathy plan will be for [facility] on discharge to finish course of Aztreonam for cellulitis/wound if still needed and for rehab will need to be on Bumex, likely 2mg or 3mg PO BID patient has multiple co-morbidities, several hospitalizations this year she has poor long-term prognosis with her stage V kidney disease if she fails to improve or if she gets worse may need to get palliative care consult Admission and Anticipated Discharge Date Admission Date: October 13, 2019 Subjective Pt awake today and conversing, but still confused at times. Does recall being at [facility] but it took her a while to respond. She also cannot remember why she came to the hospital to begin with. I discussed her care with daughter at the bedside who was also concerned that the patient's pupils may not be equal. Pt denies cough or SOB, no CP, no nausea. Review of Systems Review of Systems: All systems reviewed & are unremarkable except as noted in HPI & below Physical Exam Constitutional: WD/WN, vitals as above + obese Eyes: PERRL, conjunctivae normal, anicteric sclerae (the right pupil may be 1/2 mm smaller than left) EOM intact bilaterally ENMT: external ear and nose normal, oropharynx normal Neck: trachea midline, no thyromegaly Respiratory: normal respiratory effort Auscultation: + wheezes (faint exp wheezes throughout) Cardiovascular: Rate/Rhythm: regular rate and regular rhythm Heart Sounds: no murmur Extremities: + edema (trace pitting edema legs [facility] improved) Chest (Breasts): Chest: normal inspection of chest Gastrointestinal (Abdomen): normal bowel sounds, soft, nontender, no hepatosplenomegaly (with colostomy bag ) Musculoskeletal: Extremities: no cyanosis and no clubbing Skin: + wound (Open ulceration 1 cm leftanterior leg suprficial and much improved); no rashes (erythema of legs now resolved) Neurologic: PERRL, EOMI, accommodation nl, no face palsy, no dysarthria CN's II-XI intact bilaterally, moves all extremities, awake and + confused (mild, drowsy but stayed awake for conversation); no focal motor deficits (except cannot lift up RUE at shoulder due to shoulder problem) Speech / Cognition: no expressive aphasia Motor/Sensory: no tremor Psychiatric: Orientation: oriented to person and cooperative; + not oriented to place and + not oriented to time Eye Contact: + fair eye contact Affect: + flat affect Cognition: remote memory grossly intact; + recent memory not intact and + attention not intact Lymphatic: no lymphedema Results & Data Results & Data ([facility]) Vital Signs (Past 12 Hours) Vital Signs Temp Pulse Pulse Pulse Resp BP Pulse Ox 10/23/19 11:23 76 14 91 10/23/19 07:32 89 16 90 10/23/19 07:30 36.4 C L 89 20 118/63 96 10/23/19 00:48 86 22 94 Laboratory Results 10/23/19 10/23/19 10/23/19 Range/Units 17:30 11:35 08:45 WBC (4.8-10.8) K/uL RBC (4.2-5.4) M/uL Hgb (12.0-16.0) g/dL Hct (37-47) % MCV (80-100) fL MCH (25-34) pg MCHC (32-36) g/dL RDW Std Deviation (36.4-46.3) fL RDW Coeff of Michelle (11.5-14.5) % Plt Count (130-400) K/uL MPV (7.4-10.4) fL POC Glucose 122 H 278 H 160 H (70-99) mg/dl 10/23/19 10/22/19 Range/Units 05:40 20:25 WBC 7.91 (4.8-10.8) K/uL RBC 3.01 L (4.2-5.4) M/uL Hgb 9.3 L (12.0-16.0) g/dL Hct 29.0 L (37-47) % MCV 96.3 (80-100) fL MCH 30.9 (25-34) pg MCHC 32.1 (32-36) g/dL RDW Std Deviation 48.1 H (36.4-46.3) fL RDW Coeff of Michelle 13.9 (11.5-14.5) % Plt Count 287 (130-400) K/uL MPV 10.0 (7.4-10.4) fL POC Glucose 197 H (70-99) mg/dl Diagnostic Findings MRI Brain: MRI OF THE BRAIN WITHOUT CONTRAST CLINICAL HISTORY: altered mental status,r/o CVA COMPARISON STUDY: 08/29/2017 FINDINGS: Sagittal T1, axial diffusion, proton density and T2 weighted axial, coronal FLAIR, and axial T1-weighted images were acquired. No intra or extra-axial mass lesions are visualized Axial diffusion-weighted images reveal no evidence of acute or subacute infarction. There is no evidence of ventricular dilatation. Proton density T2-weighted and FLAIR images reveal extensive foci of increased T2 signal within the white matter, likely on a small vessel basis. There are old infarcts involving the left anterior medulla and jennifer There are no abnormal flow voids. IMPRESSION: 1. No acute intracranial findings 2. No evidence of acute or subacute infarction 3. No evidence of intracranial mass 4. Extensive white matter disease likely on a small vessel ischemic basis 5. 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 and jennifer PG Care Time/CCT Total # of Minutes Spent Total Time Spent with Patient: Total time spent is greater than 50% in coordination of care (as documented) at patient's floor/unit and/or counseling patient: Coding Level of Care Code 45309 Subseq Hosp Care Lvl 3 Diagnoses Acute exacerbation of CHF (congestive heart failure) I50.9 Heart failure type: unspecified Toxic encephalopathy G92 Back pain M54.9 Adverse drug effect T50.905A Chronic kidney disease, stage V N18.5 Cellulitis of both lower extremities L03.115; L03.116 Asthma J45.909 Depression F32.9 GERD (gastroesophageal reflux disease) K21.9 Hypertension I10 Diabetes mellitus, type 2 E11.9 Rheumatoid arthritis M06.9 History of DVT (deep vein thrombosis) Z86.718 Laceration of arm S41.119A DVT prophylaxis Z29.9 (1) Acute exacerbation of CHF (congestive heart failure) Heart failure type: unspecified Qualified Code(s): I50.9 - Heart failure, unspecified
--- NOTE | 2019-10-23 15:18 | Magnetic Resonance Report ---
MRI OF THE BRAIN WITHOUT CONTRAST CLINICAL HISTORY: altered mental status,r/o CVA COMPARISON STUDY: 08/29/2017 FINDINGS: Sagittal T1, axial diffusion, proton density and T2 weighted axial, coronal FLAIR, and axial T1-weigh alberto images were acquired. No intra or extra-axial mass lesions are visualized Axial diffusion-weighted images reveal no evidence of acute or subacute infarction. There is no evidence of ventricular dilatation. Proton density T2-weighted and FLAIR images reveal extensive foci of increased T2 signal within the w nitza matter, likely on a small vessel basis. There are old infarcts involving the left anterior medul la and jennifer There are no abnormal flow voids. IMPRESSION: 1. No acute intracranial findings 2. No evidence of acute or subacute infarction 3. No evidence of intracranial mass 4. Extensive white matter disease likely on a small vessel ischemic basis 5. 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 Electronically signed by: Thai Kohli M.D. 10/23/2019 3:16 PM
[2019-10-23] MEDS: MONTELUKAST SODIUM 10 MG TABLET PO SCH (20:37)
[2019-10-23] MEDS: ASPIRIN 81 MG ECTAB PO SCH (20:38)
[2019-10-23] MEDS: ANASTROZOLE 1 MG TAB PO SCH (20:38)
[2019-10-23] MEDS: CALCIUM CARBONATE 1250MG TAB PO SCH (20:38)
[2019-10-23] MEDS: INSULIN GLARGINE SOLOSTAR 100 UNITS/ML 3 ML PEN SC SCH (21:12)
[2019-10-24] MEDS: HYDROCODONE/ACETAMOPHEN 5/325MG TAB PO PRN ×3 (00:28→23:30)
[2019-10-24] MEDS: AZTREONAM 1,000 MG in DEXTROSE 5% 100 ML IV SCH ×3 (02:15→17:58)
[2019-10-24] MEDS: HEPARIN 100 UNIT/ML 5ML FLUSH FLUSH PRN ×2 (02:19→05:20)
[2019-10-24 06:27] LABS: Hematocrit (blood only) 29.5 % (37-47); Hemoglobin 9.3 g/dL (12.0-16.0); Immature Granulocytes # (auto) 0.04 K/uL (0.00-0.02); Immature Granulocytes % (auto) 0.3 %; Lymphocytes % (auto) 5.1 %; Mean Corpuscular Hemoglobin 30.7 pg (25-34); Mean Corpuscular Hgb Conc 31.5 g/dL (32-36); Mean Corpuscular Volume 97.4 fL (80-100); Mean Platelet Volume 10.2 fL (7.4-10.4); Monocytes # (auto) 0.21 K/uL (0.11-0.59); Monocytes % (auto) 1.8 %; Neutrophils % (auto) 92.8 %; Platelet Count 325 K/uL (130-400); RDW Coefficient of Variation 14.3 % (11.5-14.5); RDW Standard Deviation 49.7 fL (36.4-46.3); Red Blood Count 3.03 M/uL (4.2-5.4); White Blood Count 11.75 K/uL (4.8-10.8)
[2019-10-24 07:01] LABS: BUN Creatinine Ratio 18.4 (10-20); Calcium 9.2 mg/dl (8.5-10.1); Creatinine Clr Calc Pharmacy 14.4 ml/min; Est GFR (African American) 13.9; Potassium 4.4 mmol/L (3.5-5.1)
[2019-10-24] MEDS: ALBUT/IPRATROP 3MG/0.5MG NEB 3 ML VIAL NEB SCH ×4 (07:07→19:32)
[2019-10-24] MEDS: SODIUM BICARBONATE 650 MG TAB PO SCH ×2 (08:43→22:15)
[2019-10-24] MEDS: PANTOprazole 40 MG TAB PO SCH (08:43)
[2019-10-24] MEDS: FERROUS SULFATE 325 MG TAB PO SCH ×2 (08:43→22:05)
[2019-10-24] MEDS: POTASSIUM CHLORIDE 20 MEQ TABCR PO SCH ×2 (08:43→22:04)
[2019-10-24] MEDS: CHOLECALCIFEROL 1,000 UNITS 25 MCG TAB PO SCH (08:44)
[2019-10-24] MEDS: CEROVITE ADV FORMULA TAB PO SCH (08:44)
[2019-10-24] MEDS: guaiFENesin 600 MG TABCR PO SCH ×2 (08:44→22:10)
[2019-10-24] MEDS: predniSONE 5 MG TAB PO SCH (08:44)
[2019-10-24] MEDS: METOPROLOL TARTRATE 25 MG TAB PO SCH ×2 (08:45→22:04)
[2019-10-24] MEDS: BuPROPion XL 300 MG TABCR PO SCH (08:45)
[2019-10-24] MEDS: LIDOCAINE 5% 1 PATCH TD SCH (08:46)
[2019-10-24] MEDS: methylPREDNISolone 40 MG in SYRINGE 0 ML IV SCH (08:46)
[2019-10-24] MEDS: BUMETANIDE 3 MG in SYRINGE 0 ML IV SCH ×2 (08:46→17:59)
[2019-10-24] MEDS: FLUTICASONE/VILANTEROL 100/25MCG 14 PUFFS/INHALER INH SCH (08:47)
[2019-10-24] MEDS: INSULIN ASPART 100 UNITS/ML 3 ML PEN SC SCH ×4 (08:47→22:08)
[2019-10-24] MEDS: NYSTATIN POWDER 15GM BTL EXT SCH ×2 (08:48→22:11)
[2019-10-24] MEDS: DORZOLAMIDE HCL 2% OPH SOLN 10 ML BTL OPR SCH ×2 (08:48→22:16)
[2019-10-24] MEDS: BRIMONIDINE TARTRATE 0.2% 5ML OPB SCH ×2 (08:49→22:09)
--- NOTE | 2019-10-24 15:42 | Hospitalist Progress Note ---
Date of Service October 24, 2019 Assessment & Plan (1) Acute exacerbation of CHF (congestive heart failure): presented with volume overload, edema in legs led to blister that opened, led to cellulitis Acute on chronic diastolic CHF, Pulm HTN (pulmonary pressures 40-60mmHg) likely a degree of right heart failure which has made it difficult to remove fluid ECHO 07/2019 with preserved EF, mild AI, mild MR, elevated RVSP weight is down 5kg Cr is stable at 3.49 continue Bumex 3mg IV BID for today and convert to po Bumex 3mg po bid tomorrow discussed that diuresis can worsen renal function, she understands Continue strict I/Os, daily weights, low Na+ diet -follow BMP in the morning (2) Toxic encephalopathy: Most likely due to Baclofen 10mg that she received in the evening on 10/19 she slept all day on 10/20 and 10/21, confused 10/22 much more alert but remains confused ABG without CO2 retention checked Brain MRI given h/o CVA to r/o acute CVA--> neg for acute CVA 10/23 significantly improved, AAOx3 and eating/drinking NO FURTHER BACLOFEN TO BE GIVEN (3) Back pain: In the right mid to lower back paraspinous muscles, very tender to palpation Checked CT of thoracic and lumbar spine -- no acute fractures, no compression fractures suspect this is due to muscular pain, spasms Baclofen caused profound sedation-will not use again in future -ok to restart Hydrocodone as she never had a problem with this before and needs something for severe pain not relieved by APAP/lidocaine/Voltaren gel/heating pad (4) Adverse drug effect: see above with Baclofen discussion (5) Chronic kidney disease, stage V: Creatinine 3.53 upon admission, within her usual range. stable at 3.49 with diuresis, Bumex 3gm IV q12 K is stable Continue sodium bicarbonate, iron sulfate, vitamin D3, and calcium carbonate Follow serial BMP Does not wish to pursue dialysis if renal failure worsens discussed 10/19 that aggressive diuresis may worsen renal function, may not be successful since pulmonary pressures are high (6) Cellulitis of both lower extremities: Cellulitis of bilateral lower extremities, left > right-resolved continues to be afebrile, no leukocytosis, not septic Continue to work on diuresis to help prevent further blistering and cellulitis *Wound culture left leg ulcer 10/14 grew out Pseudomonas, pansensitive continue Aztreonam for treatment, would need 14 days total-last day of treatment 10/25 left leg wound with soft debridement 10/16 (7) Asthma: asthma exacerbation now since 10/21 with pursed lip breathing and wheezing suspect that being obtunded caused her to aspirate slightly, could have irritated large airways responding well to Solu Medrol 40mg IV and Duoneb Convert Solu Medrol 40mg q12 to prednisone 40mg po daily in the AM -continue Duoneb QID scheduled and q2 PRN -comfortable on room air and wheezing now resolved (8) Depression: Continue bupropion extended release 300 mg p.o. every morning (9) GERD (gastroesophageal reflux disease): Continue pantoprazole 40 mg every morning (10) Hypertension: controlled -continue metoprolol (11) Diabetes mellitus, type 2: With hyperglycemia here with IV steroids -add back on Lantus 8 units subcu at bedtime Continue Accu-Cheks before meals and at bedtime with NovoLog coverage per scale (12) Rheumatoid arthritis: Continue prednisone 5 mg p.o. every morning. Monitor for potential need for stress dose steroids, vitals and electrolytes are stable (13) History of DVT (deep vein thrombosis): h/o Protein S deficiency, cannot tolerate anticoag due to recurrent bleeding (14) Laceration of arm: had injury to right forearm from BP cuff on 10/19 overnight requiring 8 simple interrupted sutures to stop bleeding -has thin skin from chronic prednisone and mild edema of arms, also was on SQ heaprin and on ASA -will need sutures removed on/around 10/26-10/28 can keep open to air (15) DVT prophylaxis: Heparin SQ was dcd due to heavy bleeding from arm lac SCDs in place Dispo- much improved, stable medically for dc to SNF, awaiting insurance auth plan will be for [facility] on discharge to finish course of Aztreonam for cellulitis/wound if still needed and for rehab patient has multiple co-morbidities, several hospitalizations this year 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 Reports could not sleep last night at all and is now drowsy and also took hydrocodone for back pain. Denies SOB or cough, no chest pain, no nausea. Is eating well. Review of Systems Review of Systems: All systems reviewed & are unremarkable except as noted in HPI & below Physical Exam Constitutional: WD/WN, vitals as above + obese Neck: trachea midline, no thyromegaly Respiratory: normal respiratory effort, lungs clear to auscultation normal respiratory effort Cardiovascular: Rate/Rhythm: regular rate and regular rhythm Heart Sounds: no murmur Extremities: + edema (trace pitting edema legs [facility] improved) Chest (Breasts): Chest: normal inspection of chest Gastrointestinal (Abdomen): normal bowel sounds, soft, nontender, no hepatosplenomegaly (with colostomy bag ) Musculoskeletal: Extremities: no cyanosis and no clubbing Skin: + wound (Open ulceration 1 cm leftanterior leg suprficial and much improved); no rashes (erythema of legs now resolved) Neurologic: moves all extremities and awake Motor/Sensory: no tremor Psychiatric: A+Ox3, euthymic affect Eye Contact: good eye contact Speech: normal rate/rhythm/volume of speech Affect: euthymic affect Lymphatic: no lymphedema Results & Data Results & Data ([facility] [place]) Vital Signs (Past 12 Hours) Vital Signs Temp Pulse Pulse Resp BP Pulse Ox 10/24/19 15:08 36.8 C 87 18 140/74 95 10/24/19 15:02 89 18 95 10/24/19 15:00 36.8 C 95 H 18 126/71 93 10/24/19 11:11 75 18 93 10/24/19 07:36 36.5 C 97 H 16 158/79 H 95 10/24/19 07:09 80 18 97 Laboratory Results 10/24/19 10/24/19 10/24/19 Range/Units 20:51 17:24 17:05 WBC (4.8-10.8) K/uL RBC (4.2-5.4) M/uL Hgb (12.0-16.0) g/dL Hct (37-47) % MCV (80-100) fL MCH (25-34) pg MCHC (32-36) g/dL RDW Std Deviation (36.4-46.3) fL RDW Coeff of Michelle (11.5-14.5) % Plt Count (130-400) K/uL MPV (7.4-10.4) fL Immature Gran % (Auto) % Neut % (Auto) % Lymph % (Auto) % [place] % (Auto) % Eos % (Auto) % Baso % (Auto) % Neut # (Auto) (1.4-6.5) K/uL Lymph # (Auto) (1.2-3.4) K/uL [place] # (Auto) (0.11-0.59) K/uL Eos # (Auto) (0-0.5) K/uL Baso # (Auto) (0-0.2) K/uL Immature Gran # (Auto) (0.00-0.02) K/uL Sodium (136-145) mmol/L Potassium (3.5-5.1) mmol/L Chloride (98-107) mmol/L Carbon Dioxide (21-32) mmol/L Anion Gap (3-11) BUN (7-18) mg/dl Creatinine (0.6-1.2) mg/dl Est Cr Clr Drug Dosing ml/min Est GFR ( Amer) Est GFR (Non-Af Amer) BUN/Creatinine Ratio (10-20) Glucose (70-99) mg/dl POC Glucose 200 H 164 H (70-99) mg/dl Calcium (8.5-10.1) mg/dl COVID-19 Eval Order SARS-CoV-2, RNA, NAAT NEGATIVE (NEGATIVE) 10/24/19 10/24/19 10/24/19 Range/Units 17:05 11:55 08:28 WBC (4.8-10.8) K/uL RBC (4.2-5.4) M/uL Hgb (12.0-16.0) g/dL Hct (37-47) % MCV (80-100) fL MCH (25-34) pg MCHC (32-36) g/dL RDW Std Deviation (36.4-46.3) fL RDW Coeff of Michelle (11.5-14.5) % Plt Count (130-400) K/uL MPV (7.4-10.4) fL Immature Gran % (Auto) % Neut % (Auto) % Lymph % (Auto) % [place] % (Auto) % Eos % (Auto) % Baso % (Auto) % Neut # (Auto) (1.4-6.5) K/uL Lymph # (Auto) (1.2-3.4) K/uL [place] # (Auto) (0.11-0.59) K/uL Eos # (Auto) (0-0.5) K/uL Baso # (Auto) (0-0.2) K/uL Immature Gran # (Auto) (0.00-0.02) K/uL Sodium (136-145) mmol/L Potassium (3.5-5.1) mmol/L Chloride (98-107) mmol/L Carbon Dioxide (21-32) mmol/L Anion Gap (3-11) BUN (7-18) mg/dl Creatinine (0.6-1.2) mg/dl Est Cr Clr Drug Dosing ml/min Est GFR ( Amer) Est GFR (Non-Af Amer) BUN/Creatinine Ratio (10-20) Glucose (70-99) mg/dl POC Glucose 264 H 155 H (70-99) mg/dl Calcium (8.5-10.1) mg/dl COVID-19 Eval Order Covid19 IDNow atMNVC SARS-CoV-2, RNA, NAAT (NEGATIVE) 10/24/19 10/24/19 Range/Units 05:20 05:20 WBC 11.75 H (4.8-10.8) K/uL RBC 3.03 L (4.2-5.4) M/uL Hgb 9.3 L (12.0-16.0) g/dL Hct 29.5 L (37-47) % MCV 97.4 (80-100) fL MCH 30.7 (25-34) pg MCHC 31.5 L (32-36) g/dL RDW Std Deviation 49.7 H (36.4-46.3) fL RDW Coeff of Michelle 14.3 (11.5-14.5) % Plt Count 325 (130-400) K/uL MPV 10.2 (7.4-10.4) fL Immature Gran % (Auto) 0.3 % Neut % (Auto) 92.8 % Lymph % (Auto) 5.1 % [place] % (Auto) 1.8 % Eos % (Auto) 0.0 % Baso % (Auto) 0.0 % Neut # (Auto) 10.90 H (1.4-6.5) K/uL Lymph # (Auto) 0.60 L (1.2-3.4) K/uL [place] # (Auto) 0.21 (0.11-0.59) K/uL Eos # (Auto) 0.00 (0-0.5) K/uL Baso # (Auto) 0.00 (0-0.2) K/uL Immature Gran # (Auto) 0.04 H (0.00-0.02) K/uL Sodium 135 L (136-145) mmol/L Potassium 4.4 (3.5-5.1) mmol/L Chloride 101 (98-107) mmol/L Carbon Dioxide 22 (21-32) mmol/L Anion Gap 12.0 H (3-11) BUN 63 H (7-18) mg/dl Creatinine 3.41 H (0.6-1.2) mg/dl Est Cr Clr Drug Dosing 14.4 ml/min Est GFR ( Amer) 13.9 Est GFR (Non-Af Amer) 12.0 BUN/Creatinine Ratio 18.4 (10-20) Glucose 127 H (70-99) mg/dl POC Glucose (70-99) mg/dl Calcium 9.2 (8.5-10.1) mg/dl COVID-19 Eval Order SARS-CoV-2, RNA, NAAT (NEGATIVE) PG Care Time/CCT Total # of Minutes Spent Total Time Spent with Patient: Total time spent is greater than 50% in coordination of care (as documented) at patient's floor/unit and/or counseling patient: Coding Level of Care Code 52846 Subseq Hosp Care Lvl 3 Diagnoses Acute exacerbation of CHF (congestive heart failure) I50.9 Heart failure type: unspecified Toxic encephalopathy G92 Back pain M54.9 Adverse drug effect T50.905A Chronic kidney disease, stage V N18.5 Cellulitis of both lower extremities L03.115; L03.116 Asthma J45.909 Depression F32.9 GERD (gastroesophageal reflux disease) K21.9 Hypertension I10 Diabetes mellitus, type 2 E11.9 Rheumatoid arthritis M06.9 History of DVT (deep vein thrombosis) Z86.718 Laceration of arm S41.119A DVT prophylaxis Z29.9 (1) Acute exacerbation of CHF (congestive heart failure) Heart failure type: unspecified Qualified Code(s): I50.9 - Heart failure, unspecified
[2019-10-24] MEDS: ASPIRIN 81 MG ECTAB PO SCH (22:03)
[2019-10-24] MEDS: INSULIN GLARGINE SOLOSTAR 100 UNITS/ML 3 ML PEN SC SCH (22:06)
[2019-10-24] MEDS: CALCIUM CARBONATE 1250MG TAB PO SCH (22:11)
[2019-10-24] MEDS: MONTELUKAST SODIUM 10 MG TABLET PO SCH (22:11)
[2019-10-24] MEDS: ANASTROZOLE 1 MG TAB PO SCH (22:15)
[2019-10-25] MEDS: AZTREONAM 1,000 MG in DEXTROSE 5% 100 ML IV SCH ×3 (02:49→17:29)
[2019-10-25] MEDS: HEPARIN 100 UNIT/ML 5ML FLUSH FLUSH PRN ×3 (02:50→18:39)
[2019-10-25] MEDS: HYDROCODONE/ACETAMOPHEN 5/325MG TAB PO PRN ×2 (05:32→17:12)
[2019-10-25 06:44] LABS: BUN Creatinine Ratio 18.9 (10-20); Calcium 8.9 mg/dl (8.5-10.1); Creatinine Clr Calc Pharmacy 13.5 ml/min; Est GFR (African American) 12.7; Potassium 4.8 mmol/L (3.5-5.1)
[2019-10-25] MEDS: ALBUT/IPRATROP 3MG/0.5MG NEB 3 ML VIAL NEB SCH ×2 (06:54→11:11)
[2019-10-25] MEDS: BRIMONIDINE TARTRATE 0.2% 5ML OPB SCH ×2 (09:02→21:40)
[2019-10-25] MEDS: DORZOLAMIDE HCL 2% OPH SOLN 10 ML BTL OPR SCH ×2 (09:02→21:41)
[2019-10-25] MEDS: SODIUM BICARBONATE 650 MG TAB PO SCH ×2 (09:03→21:28)
[2019-10-25] MEDS: FLUTICASONE/VILANTEROL 100/25MCG 14 PUFFS/INHALER INH SCH (09:03)
[2019-10-25] MEDS: PANTOprazole 40 MG TAB PO SCH (09:04)
[2019-10-25] MEDS: METOPROLOL TARTRATE 25 MG TAB PO SCH ×2 (09:04→21:27)
[2019-10-25] MEDS: CEROVITE ADV FORMULA TAB PO SCH (09:04)
[2019-10-25] MEDS: BuPROPion XL 300 MG TABCR PO SCH (09:05)
[2019-10-25] MEDS: POTASSIUM CHLORIDE 20 MEQ TABCR PO SCH ×2 (09:05→21:25)
[2019-10-25] MEDS: FERROUS SULFATE 325 MG TAB PO SCH ×2 (09:06→21:28)
[2019-10-25] MEDS: guaiFENesin 600 MG TABCR PO SCH ×2 (09:06→21:29)
[2019-10-25] MEDS: predniSONE 5 MG TAB PO SCH (09:07)
[2019-10-25] MEDS: CHOLECALCIFEROL 1,000 UNITS 25 MCG TAB PO SCH (09:07)
[2019-10-25] MEDS: predniSONE 20 MG TAB PO SCH (09:07)
[2019-10-25] MEDS: NYSTATIN POWDER 15GM BTL EXT SCH ×2 (09:08→21:43)
[2019-10-25] MEDS: BUMETANIDE 1 MG TAB PO SCH ×2 (09:08→17:13)
[2019-10-25] MEDS: INSULIN ASPART 100 UNITS/ML 3 ML PEN SC SCH ×4 (09:10→21:42)
[2019-10-25] MEDS: LIDOCAINE 5% 1 PATCH TD SCH (09:21)
[2019-10-25] MEDS ORDERED: ALBUT/IPRATROP 3MG/0.5MG NEB 3 ML VIAL NEB PRN (11:00)
[2019-10-25] MEDS: ALBUTEROL HFA 8 GM INHALER INH PRN (13:53)
--- NOTE | 2019-10-25 18:16 | Hospitalist Progress Note ---
Date of Service October 25, 2019 Assessment & Plan (1) Acute exacerbation of CHF (congestive heart failure): presented with volume overload, edema in legs led to blister that opened, led to cellulitis Acute on chronic diastolic CHF, Pulm HTN (pulmonary pressures 40-60mmHg) likely a degree of right heart failure which has made it difficult to remove fluid ECHO 07/2019 with preserved EF, mild AI, mild MR, elevated RVSP weight is down 3kg and has gained weight from yesterday Cr is stable at 3.6 received Bumex 3mg IV BID for many days and diuresed -have now converted to po Bumex 3mg po bid on 10/24 discussed that diuresis can worsen renal function, she understands Continue strict I/Os, daily weights, low Na+ diet -follow BMP in the morning (2) Toxic encephalopathy: Most likely due to Baclofen 10mg that she received in the evening on 10/19 she slept all day on 10/20 and 10/21, confused 10/22 much more alert but remains confused ABG without CO2 retention checked Brain MRI given h/o CVA to r/o acute CVA--> neg for acute CVA 10/23 significantly improved, AAOx3 and eating/drinking 10/24 back to baseline mentation, doing very well, eating and drinking, conversive, no confusion NO FURTHER BACLOFEN TO BE GIVEN (3) Back pain: In the right mid to lower back paraspinous muscles, very tender to palpation Checked CT of thoracic and lumbar spine -- no acute fractures, no compression fractures suspect this is due to muscular pain, spasms Baclofen caused profound sedation-will not use again in future -ok to restart Hydrocodone as she never had a problem with this before and needs something for severe pain not relieved by APAP/lidocaine/Voltaren gel/heating pad (4) Adverse drug effect: see above with Baclofen discussion (5) Chronic kidney disease, stage V: Creatinine 3.53 upon admission, within her usual range. stable at 3.6 with diuresis K is stable Continue sodium bicarbonate, iron sulfate, vitamin D3, and calcium carbonate Follow serial BMP Does not wish to pursue dialysis if renal failure worsens discussed 10/19 that aggressive diuresis may worsen renal function, may not be successful since pulmonary pressures are high (6) Cellulitis of both lower extremities: Cellulitis of bilateral lower extremities, left > right-resolved continues to be afebrile, no leukocytosis, not septic Continue to work on diuresis to help prevent further blistering and cellulitis *Wound culture left leg ulcer 10/14 grew out Pseudomonas, pansensitive continue Aztreonam for treatment, would need 14 days total-last day of treatment 10/25 left leg wound with soft debridement 10/16 (7) Asthma: asthma exacerbation now since 10/21 with pursed lip breathing and wheezing suspect that being obtunded caused her to aspirate slightly, could have irritated large airways Now much improved after 2 days of IV SOlu Medrol -continue prednisone 40mg po daily in the AM -continue Duoneb QID scheduled and q2 PRN -comfortable on room air and wheezing now resolved (8) Depression: Continue bupropion extended release 300 mg p.o. every morning (9) GERD (gastroesophageal reflux disease): Continue pantoprazole 40 mg every morning (10) Hypertension: controlled -continue metoprolol (11) Diabetes mellitus, type 2: With hyperglycemia here with IV steroids -added back on Lantus 8 units subcu at bedtime Continue Accu-Cheks before meals and at bedtime with NovoLog coverage per scale (12) Rheumatoid arthritis: Continue prednisone 5 mg p.o. every morning. Monitor for potential need for stress dose steroids, vitals and electrolytes are stable (13) History of DVT (deep vein thrombosis): h/o Protein S deficiency, cannot tolerate anticoag due to recurrent bleeding (14) Laceration of arm: had injury to right forearm from BP cuff on 10/19 overnight requiring 8 simple interrupted sutures to stop bleeding -has thin skin from chronic prednisone and mild edema of arms, also was on SQ heaprin and on ASA -will need sutures removed on/around 10/26-10/28 can keep open to air (15) DVT prophylaxis: Heparin SQ was dcd due to heavy bleeding from arm lac SCDs in place Dispo- much improved, stable medically for dc to SNF, awaiting insurance auth- completed Peer to Peer today and SNF was approved at [id number] plan will be for [facility] on discharge to finish course of Aztreonam for cellulitis/wound if still needed and for rehab patient has multiple co-morbidities, several hospitalizations this year 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 Is very weak and could only walk 5-7 feet today with PT. Denies SOB, wheezing, no cough or CP. Is eating. Review of Systems Review of Systems: All systems reviewed & are unremarkable except as noted in HPI & below still with right mid to lower back pain Physical Exam Constitutional: WD/WN, vitals as above + obese Neck: trachea midline, no thyromegaly Respiratory: normal respiratory effort, lungs clear to auscultation Cardiovascular: Rate/Rhythm: regular rate and regular rhythm Heart Sounds: no murmur Extremities: + edema (trace pitting edema legs [facility] improved) Chest (Breasts): Chest: normal inspection of chest Gastrointestinal (Abdomen): normal bowel sounds, soft, nontender, no hepatosplenomegaly (with colostomy bag ) Musculoskeletal: Extremities: no cyanosis and no clubbing Skin: + wound (Open ulceration 1 cm leftanterior leg suprficial and much improved); no rashes (erythema of legs now resolved) Neurologic: moves all extremities and awake Speech / Cognition: no expressive aphasia Motor/Sensory: no tremor Psychiatric: A+Ox3, euthymic affect Eye Contact: good eye contact Speech: normal rate/rhythm/volume of speech Affect: euthymic affect Lymphatic: no lymphedema Results & Data Results & Data ([facility]) Vital Signs (Past 12 Hours) Vital Signs Temp Pulse Pulse Resp BP Pulse Ox 10/25/19 16:35 36.9 C 87 18 93 10/25/19 14:34 68 16 94 10/25/19 06:54 78 16 94 10/25/19 06:31 36.7 C 86 17 148/82 H 94 Laboratory Results 10/25/19 10/25/19 10/25/19 Range/Units 20:28 16:35 11:59 Sodium (136-145) mmol/L Potassium (3.5-5.1) mmol/L Chloride (98-107) mmol/L Carbon Dioxide (21-32) mmol/L Anion Gap (3-11) BUN (7-18) mg/dl Creatinine (0.6-1.2) mg/dl Est Cr Clr Drug Dosing ml/min Est GFR ( Amer) Est GFR (Non-Af Amer) BUN/Creatinine Ratio (10-20) Glucose (70-99) mg/dl POC Glucose 205 H 204 H 121 H (70-99) mg/dl Calcium (8.5-10.1) mg/dl 10/25/19 10/25/19 Range/Units 08:10 05:33 Sodium 132 L (136-145) mmol/L Potassium 4.8 (3.5-5.1) mmol/L Chloride 100 (98-107) mmol/L Carbon Dioxide 23 (21-32) mmol/L Anion Gap 9.0 (3-11) BUN 69 H (7-18) mg/dl Creatinine 3.66 H (0.6-1.2) mg/dl Est Cr Clr Drug Dosing 13.5 ml/min Est GFR ( Amer) 12.7 Est GFR (Non-Af Amer) 11.0 BUN/Creatinine Ratio 18.9 (10-20) Glucose 112 H (70-99) mg/dl POC Glucose 116 H (70-99) mg/dl Calcium 8.9 (8.5-10.1) mg/dl PG Care Time/CCT Total # of Minutes Spent Total Time Spent with Patient: Total time spent is greater than 50% in coordination of care (as documented) at patient's floor/unit and/or counseling patient: Coding Level of Care Code 99620 Subseq Hosp Care Lvl 2 Diagnoses Acute exacerbation of CHF (congestive heart failure) I50.9 Heart failure type: unspecified Toxic encephalopathy G92 Back pain M54.9 Adverse drug effect T50.905A Chronic kidney disease, stage V N18.5 Cellulitis of both lower extremities L03.115; L03.116 Asthma J45.909 Depression F32.9 GERD (gastroesophageal reflux disease) K21.9 Hypertension I10 Diabetes mellitus, type 2 E11.9 Rheumatoid arthritis M06.9 History of DVT (deep vein thrombosis) Z86.718 Laceration of arm S41.119A DVT prophylaxis Z29.9 (1) Acute exacerbation of CHF (congestive heart failure) Heart failure type: unspecified Qualified Code(s): I50.9 - Heart failure, unspecified
[2019-10-25] MEDS: CALCIUM CARBONATE 1250MG TAB PO SCH (21:27)
[2019-10-25] MEDS: ASPIRIN 81 MG ECTAB PO SCH (21:29)
[2019-10-25] MEDS: MONTELUKAST SODIUM 10 MG TABLET PO SCH (21:41)
[2019-10-25] MEDS: INSULIN GLARGINE SOLOSTAR 100 UNITS/ML 3 ML PEN SC SCH (21:42)
[2019-10-25] MEDS: ANASTROZOLE 1 MG TAB PO SCH (21:42)
[2019-10-26] MEDS: AZTREONAM 1,000 MG in DEXTROSE 5% 100 ML IV SCH ×2 (01:53→09:57)
[2019-10-26] MEDS: HEPARIN 100 UNIT/ML 5ML FLUSH FLUSH PRN ×2 (03:16→11:06)
[2019-10-26 06:26] LABS: Hemoglobin 8.9 g/dL (12.0-16.0); Mean Corpuscular Hemoglobin 30.7 pg (25-34); Mean Corpuscular Hgb Conc 31.8 g/dL (32-36); Mean Corpuscular Volume 96.6 fL (80-100); Platelet Count 304 K/uL (130-400); RDW Coefficient of Variation 14.1 % (11.5-14.5); RDW Standard Deviation 49.6 fL (36.4-46.3); White Blood Count 10.72 K/uL (4.8-10.8)
[2019-10-26 07:02] LABS: BUN Creatinine Ratio 20.7 (10-20); Calcium 8.9 mg/dl (8.5-10.1); Creatinine Clr Calc Pharmacy 12.8 ml/min; Est GFR (African American) 11.9; Est GFR (Non-African American) 10.3
[2019-10-26] MEDS: NYSTATIN POWDER 15GM BTL EXT SCH (07:52)
[2019-10-26] MEDS: LIDOCAINE 5% 1 PATCH TD SCH (07:53)
[2019-10-26] MEDS: BRIMONIDINE TARTRATE 0.2% 5ML OPB SCH (07:53)
[2019-10-26] MEDS: DORZOLAMIDE HCL 2% OPH SOLN 10 ML BTL OPR SCH (07:54)
[2019-10-26] MEDS: METOPROLOL TARTRATE 25 MG TAB PO SCH (07:55)
[2019-10-26] MEDS: PANTOprazole 40 MG TAB PO SCH (07:55)
[2019-10-26] MEDS: SODIUM BICARBONATE 650 MG TAB PO SCH (07:56)
[2019-10-26] MEDS: predniSONE 20 MG TAB PO SCH (07:56)
[2019-10-26] MEDS: BuPROPion XL 300 MG TABCR PO SCH (07:57)
[2019-10-26] MEDS: HYDROCODONE/ACETAMOPHEN 5/325MG TAB PO PRN (07:57)
[2019-10-26] MEDS: CHOLECALCIFEROL 1,000 UNITS 25 MCG TAB PO SCH (07:57)
[2019-10-26] MEDS: predniSONE 5 MG TAB PO SCH (07:57)
[2019-10-26] MEDS: FLUTICASONE/VILANTEROL 100/25MCG 14 PUFFS/INHALER INH SCH (07:58)
[2019-10-26 08:32] LABS: Potassium 4.6 mmol/L (3.5-5.1)
[2019-10-26] MEDS: CEROVITE ADV FORMULA TAB PO SCH (09:10)
[2019-10-26] MEDS: POTASSIUM CHLORIDE 20 MEQ TABCR PO SCH (09:10)
[2019-10-26] MEDS: FERROUS SULFATE 325 MG TAB PO SCH (09:10)
[2019-10-26] MEDS: BUMETANIDE 1 MG TAB PO SCH (09:11)
[2019-10-26] MEDS: guaiFENesin 600 MG TABCR PO SCH (09:11)
[2019-10-26] MEDS: INSULIN ASPART 100 UNITS/ML 3 ML PEN SC SCH ×2 (09:12→13:01)
--- NOTE | 2019-10-26 12:06 | Discharge Summary ---
Date of Service October 26, 2019 Admission HPI Per Admitting Provider The patient is an 79-year-old female with a past medical history including CHF, NELSON, asthma, glaucoma, depression, CVA, protein S deficiency, history of DVT, anemia, parastomal hernia, left-sided breast cancer, GERD, hyperlipidemia, RA, ulcerative colitis, diabetes mellitus, CKD stage IV, hypertension and lung nodule. She reports that she had recently had her Bumex increased 2.25 mg p.o. twice daily, and has had continued worsening of the above symptoms. Principal Diagnosis Volume overload, Lower extremity cellulitis Acute toxic encephalopathy Discharge Exam Constitutional WD/WN, vitals as above + obese Neck trachea midline, no thyromegaly Respiratory normal respiratory effort, lungs clear to auscultation Cardiovascular Rate/Rhythm: regular rate and regular rhythm Heart Sounds: no murmur Extremities: + edema (trace pitting edema legs [facility] improved) Chest (Breasts) Chest: normal inspection of chest Gastrointestinal (Abdomen) normal bowel sounds, soft, nontender, no hepatosplenomegaly (with colostomy bag ) Musculoskeletal Extremities: no cyanosis and no clubbing Skin + wound (Open ulceration 1 cm leftanterior leg suprficial and much improved); no rashes (erythema of legs now resolved) Neurologic moves all extremities and awake Psychiatric A+Ox3, euthymic affect Orientation: cooperative Eye Contact: good eye contact Speech: normal rate/rhythm/volume of speech Affect: euthymic affect Discharge Data Allergies Allergy/AdvReac Type Severity Reaction Status Date / Time Bactrim Allergy Severe dizzy,dyseq Verified 10/26/17 14:59 uilibrium bee venom protein (honey bee) Allergy Severe ANAPHYLAXIS Verified 10/13/19 19:30 cefaclor Allergy Severe stiff and Verified 10/13/19 19:30 sore muscles-PT DENIES lisinopril Allergy Severe tongue Verified 10/13/19 19:30 swelling diltiazem Allergy Intermediate rash Verified 10/13/19 19:30 Penicillins Allergy Mild RASH Verified 10/13/19 19:31 tetracycline Allergy Mild UNK-PT Verified 10/13/19 19:31 DENIES amoxicillin Allergy Unknown RASH Verified 10/13/19 19:31 cefuroxime Allergy Unknown TAST Verified 10/13/19 19:32 clavulanic acid Allergy Unknown ITCHING Verified 10/13/19 19:32 levofloxacin Allergy Unknown NAUSEA, Verified 10/13/19 19:32 DIZZINESS baclofen AdvReac Severe Severe Verified 10/23/19 18:48 sedation alendronate sodium AdvReac Intermediate FELT SICK Verified 10/13/19 19:33 Cipro AdvReac Intermediate LEGS ARMS Verified 10/26/17 14:59 STIFF, PAINFUL ciprofloxacin AdvReac Intermediate LEGS ARMS Verified 10/13/19 19:33 STIFF, PAINFUL doxycycline AdvReac Intermediate nausea and Verified 10/13/19 19:33 vomiting metformin AdvReac Intermediate CAUSED Verified 10/13/19 19:33 [employer] LACTIC ACID LEVELS tramadol AdvReac Intermediate DIZZINESS Verified 10/13/19 19:34 adhesive AdvReac Mild redness Verified 10/13/19 19:34 mercaptopurine AdvReac Mild MADE HER Verified 10/13/19 19:34 VERY ILL olmesartan AdvReac Mild HEADACHE Verified 10/13/19 19:34 Sulfa (Sulfonamide AdvReac Mild CAUSED Verified 10/13/19 19:35 Antibiotics) DIZZINESS sulfamethoxazole AdvReac Mild CAUSED Verified 10/13/19 19:35 DIZZINESS trimethoprim AdvReac Mild BACTRIM Verified 10/13/19 19:35 CAUSED DIZZINESS aspirin AdvReac Unknown CAUSES Verified 10/13/19 19:35 BRUISING Consultations 10/13/19 21:20 ED Decision to Admit Stat 10/14/19 01:33 Consult Case Management - Discharge Planning Routine 10/16/19 16:05 Consult Wound Care Provider Routine Consult Wound Care Provider Routine 10/20/19 05:38 Consult Senior Painter Routine 10/25/19 18:03 Consult Case Management - Discharge Planning Routine Ordered Studies 10/15/19 20:44 CT lumbar spine wo con Routine CT thoracic spine wo con Routine 10/23/19 12:22 MR brain wo con Urgent CXR x 2 Hospital Course (1) Acute exacerbation of CHF (congestive heart failure): presented with volume overload, edema in legs led to blister that opened, led to cellulitis Acute on chronic diastolic CHF, Pulm HTN (pulmonary pressures 40-60mmHg) likely a degree of right heart failure which has made it difficult to remove fluid ECHO 07/2019 with preserved EF, mild AI, mild MR, elevated RVSP weight is down 3kg since admission Cr is stable at 3.6 received Bumex 3mg IV BID for many days and diuresed -have now converted to po Bumex 3mg po bid on 10/24 discussed that diuresis can worsen renal function, she understands Continue daily weights, low Na+ diet -follow BMP in one week at rehab (2) Toxic encephalopathy: Most likely due to Baclofen 10mg that she received in the evening on 10/19 she slept all day on 10/20 and 10/21, confused 10/22 much more alert but remains confused ABG without CO2 retention checked Brain MRI given h/o CVA to r/o acute CVA--> neg for acute CVA 10/23 significantly improved, AAOx3 and eating/drinking 10/24 back to baseline mentation, doing very well, eating and drinking, conversive, no confusion NO FURTHER BACLOFEN TO BE GIVEN (3) Back pain: In the right mid to lower back paraspinous muscles, very tender to palpation Checked CT of thoracic and lumbar spine -- no acute fractures, no compression fractures suspect this is due to muscular pain, spasms Baclofen caused profound sedation-will not use again in future -ok to restart Hydrocodone as she never had a problem with this before and needs something for severe pain not relieved by APAP/Voltaren gel/heating pad lidocaine patch irritated her (4) Adverse drug effect: see above with Baclofen discussion (5) Chronic kidney disease, stage V: Creatinine 3.53 upon admission, within her usual range. stable at 3.6 with diuresis K is stable Continue sodium bicarbonate, iron sulfate, vitamin D3, and calcium carbonate Follow serial BMP Does not wish to pursue dialysis if renal failure worsens discussed 10/19 that aggressive diuresis may worsen renal function, may not be successful since pulmonary pressures are high Follow with Nephro as outpt, BMP in 1 week (6) Cellulitis of both lower extremities: Cellulitis of bilateral lower extremities, left > right-resolved continues to be afebrile, no leukocytosis, not septic Continue to work on diuresis to help prevent further blistering and cellulitis *Wound culture left leg ulcer 10/14 grew out Pseudomonas, pansensitive continue Aztreonam for treatment, would need 14 days total-last day of treatment 10/25-completed course prior to discharge left leg wound with soft debridement 10/16 (7) Asthma: asthma exacerbation now since 10/21 with pursed lip breathing and wheezing suspect that being obtunded caused her to aspirate slightly, could have irritated large airways Now much improved after 2 days of IV SOlu Medrol and on prednisone burst -continue prednisone 40mg po daily in the AM x 2 days then decrease by 10mg q2 days until back to home dose of 5mg daily -continue Duoneb prn -comfortable on room air and wheezing now resolved (8) Depression: Continue bupropion extended release 300 mg p.o. every morning (9) GERD (gastroesophageal reflux disease): Continue pantoprazole 40 mg every morning (10) Hypertension: controlled -continue metoprolol (11) Diabetes mellitus, type 2: With hyperglycemia here with IV steroids -added back on Lantus 8 units subcu at bedtime Continue Accu-Cheks before meals and at bedtime with NovoLog coverage per scale (12) Rheumatoid arthritis: Continue prednisone 5 mg p.o. every morning. Monitor for potential need for stress dose steroids, vitals and electrolytes are stable (13) History of DVT (deep vein thrombosis): h/o Protein S deficiency, cannot tolerate anticoag due to recurrent bleeding (14) Laceration of arm: had injury to right forearm from BP cuff on 10/19 overnight requiring 8 simple interrupted sutures to stop bleeding -has thin skin from chronic prednisone and mild edema of arms, also was on SQ heparin and on ASA -will need sutures removed on/around 10/28 can keep open to air (15) DVT prophylaxis: Heparin SQ was dcd due to heavy bleeding from arm lac SCDs in place Dispo- much improved, stable medically for dc to SNF Total Time Total Time Spent Total Time Spent (In Minutes): >30 min Total Time Includes: Examination of the Patient, Discharge Planning and Medication Reconciliation Discharge Plan Discharge Items Patient Disposition: Transfer Intermediate Fac Reason For Visit: CHF, LE CELLULITIS Discharge Diagnosis: Volume overload, Lower extremity cellulitis, Acute toxic encephalopathy Condition on Discharge: Fair Activity: As commented below Exercise/Sports: Gradually increase as tolerated Exercise Comment: with PT/OT Weightbearing: Full weightbearing Non-emergency contact: Primary Care Provider and Batch Attendant Call non-emergency contact if: you have any medication questions, your symptoms worsen, your pain is not controlled, your pain is worsening, your pain is unusual for you, your pain is concerning for you, you have a fever, your wound has increased redness, your wound has increased drainage and your wound pain has increased Follow-up/Referrals: Se Tovar MD [Primary Care Provider] - Diet: Carb Consistent or DM2 and Low Sodium (2gm) Fluids: 1800ml (7 cups) Addtl Attending Provider Instructions: You completed the antibiotic course for your lower extremity cellulitis. The sutures on your right forearm will need to be removed on 10/29/19. Continue wound care to the wounds on your lower extremities as per phlebotomy coordinator instructions. Complete prednisone taper down to home dose for your asthma exacerbation. Continue higher dose of oral Bumex at 3mg twice a day. Daily weights please and follow BMP in 1 week. Pending Studies at Discharge: No Stand-Alone Forms: My [facility] Skilled Items Patient informed of condition?: Yes DNR: No Discharge Level of Care: Skilled Communicable Disease: No Discharge Prognosis: Improving Lines: None Urinary Catheter: No Medications and DC Order Prescriptions: New ipratropium-albuterol 0.5 mg-3 mg(2.5 mg base)/3 mL Solution For Nebulization 3 ml NEB QIDR PRN (Reason: shortness of breath or wheezing) Qty: 15 RF: 0 hydrocodone-acetaminophen [[place]] 5-325 mg Tablet 1 tab PO Q6H PRN (Reason: pain) Qty: 7 RF: 0 bumetanide 1 mg Tablet 3 mg PO BID17 Qty: 180 RF: 0 prednisone 20 mg Tablet 40 mg PO QAM Qty: 10 RF: 0 potassium chloride [Klor-Con M20] 20 mEq Tablet,Er Particles/Crystals 20 meq PO BID Qty: 60 RF: 0 nystatin [Nystop] 100,000 unit/gram Powder 1 applic EXT Q12 Qty: 15 RF: 0 Continued albuterol sulfate [Ventolin HFA] 90 mcg/actuation HFA aerosol inhaler 2 - 4 puff INHALATION QID PRN (Reason: Shortness Of Breath Or Wheezing) Qty: 3 RF: 3 Symbicort 80-4.5 mcg/actuation HFA aerosol inhaler 2 puff INHALATION BID Qty: 3 RF: 3 zafirlukast [Accolate] 20 mg tablet 20 mg PO Q12H Qty: 180 RF: 3 bupropion HCl 300 mg tablet extended release 24 hr 300 mg PO QAM RF: 0 sodium bicarbonate 650 mg tablet 650 mg PO BID RF: 0 brimonidine 0.2 % drops 1 drp OPB BID RF: 0 dorzolamide 2 % drops 1 drp OPR BID RF: 0 ferrous sulfate 325 mg (65 mg iron) Tablet 325 mg PO BID Qty: 0 RF: 0 anastrozole 1 mg Tablet 1 mg PO QPM RF: 0 aspirin [Aspirin Low Dose] 81 mg Tablet,Delayed Release (Dr/Ec) 81 mg PO QPM RF: 0 multivitamin with minerals Tablet 1 tab PO QAM RF: 0 cholecalciferol (vitamin D3) 5,000 unit Capsule 5,000 unit PO QAM RF: 0 metoprolol tartrate 25 mg Tablet 12.5 mg PO BID RF: 0 calcium carbonate-vitamin D3 [Os-Conrad 500 + D3] 500 mg(1,250mg) -200 unit Tablet 1 tab PO QPM RF: 0 Lantus Solostar U-100 Insulin 100 unit/mL (3 mL) Insulin Pen 8 unit SUBCUT HS RF: 0 prednisone 5 mg Tablet 5 mg PO QAM RF: 0 pantoprazole 40 mg Tablet,Delayed Release (Dr/Ec) 40 mg PO QAM RF: 0 acetaminophen [Tylenol Extra Strength] 500 mg Tablet 500 mg PO Q6H PRN (Reason: Pain) RF: 0 diclofenac sodium [Voltaren] 1 % Gel 2 g EXT QID PRN (Reason: back pain) Qty: 100 RF: 0 guaifenesin [Mucinex] 600 mg Tablet Extended Release 12hr 1,200 mg PO Q12 Qty: 30 RF: 0 Desenex 2 % Powder 1 applic EXT PRN PRN (Reason: Rash under skin folds) Qty: 43 RF: 0 Discontinued bumetanide 0.5 mg tablet 1 mg PO DAILY PRN (Reason: Weight gain of 2 pounds in 24 hours) RF: 0 Discharge Orders: Discharge Order (Routine); Ordered 10/26/19 Ordered By: Carole Jha Admission Data Admit Date/Time: 10/13/19 22:53 Attending Provider: Carole Jha Admit Provider: Sam Cortez Primary Care Provider: Se Tovar Other Providers: Sam Cortez ; Jack Thompson ; Eleazar,[facility] ; Gonzales Sauceda [facility] ; Alexander Payne Coding Level of Care Code D/C Day Management >30 mins Diagnoses Acute exacerbation of CHF (congestive heart failure) I50.9 Heart failure type: unspecified Toxic encephalopathy G92 Back pain M54.9 Adverse drug effect T50.905A Chronic kidney disease, stage V N18.5 Cellulitis of both lower extremities L03.115; L03.116 Asthma J45.909 Depression F32.9 GERD (gastroesophageal reflux disease) K21.9 Hypertension I10 Diabetes mellitus, type 2 E11.9 Rheumatoid arthritis M06.9 History of DVT (deep vein thrombosis) Z86.718 Laceration of arm S41.119A DVT prophylaxis Z29.9
[2019-10-26] MEDS: ACETAMINOPHEN 325 MG TAB PO PRN (13:11)
== END 2019-10-26 13:55 | DRG 291 ==
LOC: ED 17:32 → SUATTDRO 22:53 → 2S 22:53 → 3N 10-15 19:27

== ENCOUNTER 2019-10-30 21:05 | Inpatient (IN) ==
[2019-10-30] MEDS ORDERED: HydrALAZINE HCL 20 MG/ML VIAL IV ONE (22:26)
[2019-10-30] MEDS ORDERED: ALBUT/IPRATROP 3MG/0.5MG NEB 3 ML VIAL NEB STA (22:27)
--- NOTE | 2019-10-31 00:04 | Emergency Department Note ---
History of Present Illness General Chief complaint: Illness Stated complaint: PNX Time Seen by Provider: 10/30/19 22:01 Source: patient Mode of arrival: ambulatory Limitations: no limitations History of Present Illness Provider complaint: Pneumonia This is an 79-year-old female who presents to the ED from a local nursing facility stating that she had a chest x-ray earlier today. She was found to have pneumonia. The patient was sent here for further evaluation. The patient does have a mild cough. She denies any other specific complaints at this time. She recently was in the hospital for congestive heart failure and some kidney failure. Home Medications Home Medications Medication Instructions Recorded Confirmed Type Lantus Solostar U-100 Insulin 8 unit SUBCUT HS 11/22/17 10/13/19 History anastrozole 1 mg PO QPM 11/22/17 10/13/19 History aspirin [Aspirin Low Dose] 81 mg PO QPM 11/22/17 10/13/19 History calcium carbonate-vitamin D3 1 tab PO QPM 11/22/17 10/13/19 History [Os-Conrad 500 + D3] cholecalciferol (vitamin D3) 5,000 unit PO QAM 11/22/17 10/13/19 History metoprolol tartrate 12.5 mg PO BID 11/22/17 10/13/19 History multivitamin with minerals 1 tab PO QAM 11/22/17 10/13/19 History pantoprazole 40 mg PO QAM 11/22/17 10/13/19 History prednisone 5 mg PO QAM 11/22/17 10/13/19 History brimonidine 1 drp OPB BID 06/22/18 10/13/19 History dorzolamide 1 drp OPR BID 06/22/18 10/13/19 History ferrous sulfate 325 mg PO BID #0 tab 06/25/18 10/13/19 Rx budesonide-formoterol HFA 80 2 puff INHALATION BID #3 inhaler 02/01/19 10/13/19 Rx mcg-4.5 mcg/actuation aerosol inhaler zafirlukast 20 mg tablet 20 mg PO Q12H #180 tab 02/01/19 10/13/19 Rx albuterol sulfate 90 mcg/actuation 2 - 4 puff INHALATION QID PRN #3 02/15/19 10/13/19 Rx aerosol inhaler inhaler bupropion HCl 300 mg 24 hr tablet, 300 mg PO QAM tab 03/06/19 10/13/19 History extended release acetaminophen [Tylenol Extra 500 mg PO Q6H PRN 08/25/19 10/13/19 History Strength] Desenex 1 applic EXT PRN PRN #43 gm 08/31/19 10/13/19 Rx diclofenac sodium [Voltaren] 2 g EXT QID PRN #100 gm 08/31/19 10/13/19 Rx guaifenesin [Mucinex] 1,200 mg PO Q12 #30 tab 08/31/19 10/13/19 Rx sodium bicarbonate 650 mg tablet 650 mg PO BID tab 09/13/19 10/13/19 History bumetanide 3 mg PO BID17 #180 tab 10/26/19 Rx hydrocodone-acetaminophen [[place]] 1 tab PO Q6H PRN #7 tab 10/26/19 Rx ipratropium-albuterol 3 ml NEB QIDR PRN #15 ml 10/26/19 Rx nystatin [Nystop] 1 applic EXT Q12 #15 g 10/26/19 Rx potassium chloride [Klor-Con M20] 20 meq PO BID #60 tab 10/26/19 Rx prednisone 40 mg PO QAM #10 tab 10/26/19 Rx Allergies Allergy/AdvReac Type Severity Reaction Status Date / Time Bactrim Allergy Severe dizzy,dyseq Verified 10/26/17 14:59 uilibrium bee venom protein (honey bee) Allergy Severe ANAPHYLAXIS Verified 10/13/19 19:30 cefaclor Allergy Severe stiff and Verified 10/13/19 19:30 sore muscles-PT DENIES lisinopril Allergy Severe tongue Verified 10/13/19 19:30 swelling diltiazem Allergy Intermediate rash Verified 10/13/19 19:30 Penicillins Allergy Mild RASH Verified 10/13/19 19:31 tetracycline Allergy Mild UNK-PT Verified 10/13/19 19:31 DENIES amoxicillin Allergy Unknown RASH Verified 10/13/19 19:31 cefuroxime Allergy Unknown TAST Verified 10/13/19 19:32 clavulanic acid Allergy Unknown ITCHING Verified 10/13/19 19:32 levofloxacin Allergy Unknown NAUSEA, Verified 10/13/19 19:32 DIZZINESS baclofen AdvReac Severe Severe Verified 10/23/19 18:48 sedation alendronate sodium AdvReac Intermediate FELT SICK Verified 10/13/19 19:33 Cipro AdvReac Intermediate LEGS ARMS Verified 10/26/17 14:59 STIFF, PAINFUL ciprofloxacin AdvReac Intermediate LEGS ARMS Verified 10/13/19 19:33 STIFF, PAINFUL doxycycline AdvReac Intermediate nausea and Verified 10/13/19 19:33 vomiting metformin AdvReac Intermediate CAUSED Verified 10/13/19 19:33 BACK PAIN [employer]. LACTIC ACID LEVELS tramadol AdvReac Intermediate DIZZINESS Verified 10/13/19 19:34 adhesive AdvReac Mild redness Verified 10/13/19 19:34 mercaptopurine AdvReac Mild MADE HER Verified 10/13/19 19:34 VERY ILL olmesartan AdvReac Mild HEADACHE Verified 10/13/19 19:34 Sulfa (Sulfonamide AdvReac Mild CAUSED Verified 10/13/19 19:35 Antibiotics) DIZZINESS sulfamethoxazole AdvReac Mild CAUSED Verified 10/13/19 19:35 DIZZINESS trimethoprim AdvReac Mild BACTRIM Verified 10/13/19 19:35 CAUSED DIZZINESS aspirin AdvReac Unknown CAUSES Verified 10/13/19 19:35 BRUISING Past Med/Surg History Medical History Acute osteomyelitis (06/05/01) "MRSA of the thoracic spine " On 02/05/12 10:49 Wilfredo Melendez wrote "MRSA of the thoracic spine " Asthma Breast cancer, left breast X2--1ST)2005 2)2012---SX,RADIATION Chronic back pain Chronic kidney disease, stage V CKD (chronic kidney disease) Deep vein thrombosis L LEG Fibromyalgia GERD (gastroesophageal reflux disease) Glaucoma BILT EYES Hyperlipidemia Hypertension Pneumonia, organism unspecified (02/05/12) Protein S deficiency Rheumatoid arthritis Spinal stenosis Stroke 07/2017--DIFFICULTY WALKING Trigeminal neuralgia Ulcerative colitis Vitamin D deficiency Surgical History H/O bilateral cataract extraction H/O right inguinal hernia repair History of appendectomy History of bowel resection [place] [facility] [place] of breast biopsy LEFT MALIGNANT X2 History of colonoscopy History of esophagogastroduodenoscopy (EGD) History of gastric surgery 2012---ABCESS ON STOMACH WALL History of lumpectomy of left breast X2 2006 WITH LYMPH NODE REMOVAL, 2013 History of tooth extraction ALL TEETH Family History Brother Family history of diabetes mellitus 2 BROTHERS Mother Family hx of colon cancer Father Family hx of colon cancer Social History Smoking Status: Former smoker Tobacco Type: Cigarettes Second Hand Exposure: Yes ( SMOKED); Hx Alcohol Use: No Hx Substance Use: No Preferred Language: Togolese Communication Ability: Effective Ethnoarchaeologist Required: No Beliefs That Will Affect Care: None marital status: Current Living Situation: Spouse Current Living Situation Comment: Patient lives w/ . Feels Safe at Home: Yes Review of Systems A total of 10 systems reviewed and were otherwise negative Physical Exam Vital Signs Vital Signs - 24 hr 10/30/19 21:21 10/30/19 21:46 10/30/19 23:16 Temperature Source Oral Pulse Rate 96 H Pulse Rate [Bilateral Apical] 85 98 H Respiratory Rate 20 20 20 Respiratory Effort / Characteristics Blood Pressure 207/123 H Blood Pressure [Right Arm] 208/136 H 208/114 H Blood Pressure Mean 151 Blood Pressure Mean [Right Arm] 160 145 Pulse Oximetry 95 98 95 Oxygen Delivery Method Room Air Room Air Room Air Sepsis Recent Fever Within 48 Hours No Sepsis New/Unexplained Change in Mental Status No Sepsis Action Taken by Nursing No Action Required 10/30/19 23:17 10/30/19 23:49 10/30/19 23:59 Temperature Source Pulse Rate Pulse Rate [Bilateral Apical] 89 99 H Respiratory Rate 20 20 Respiratory Effort / Characteristics Non-Labored Spontaneous Blood Pressure Blood Pressure [Right Arm] 175/82 H Blood Pressure Mean Blood Pressure Mean [Right Arm] 113 Pulse Oximetry 95 97 98 Oxygen Delivery Method Room Air Room Air Room Air Sepsis Recent Fever Within 48 Hours Sepsis New/Unexplained Change in Mental Status Sepsis Action Taken by Nursing 10/31/19 00:17 Temperature Source Pulse Rate Pulse Rate [Bilateral Apical] 88 Respiratory Rate 20 Respiratory Effort / Characteristics Blood Pressure Blood Pressure [Right Arm] 174/89 H Blood Pressure Mean Blood Pressure Mean [Right Arm] 117 Pulse Oximetry 100 Oxygen Delivery Method Sepsis Recent Fever Within 48 Hours Sepsis New/Unexplained Change in Mental Status Sepsis Action Taken by Nursing CONSTITUTIONAL/VITAL SIGNS: Reviewed / noted above. GENERAL: Non-toxic in appearance. INTEGUMENTARY: Warm, dry, and [place]. HEAD: Normocephalic. EYES: without scleral icterus or trauma. ENT/OROPHARYNX: clear and moist. LYMPHADENOPATHY/NECK: Is supple without lymphadenopathy or meningismus. RESPIRATORY: Lungs reveal some bilateral wheezes and crackles CARDIOVASCULAR: Regular rate and rhythm. GI/ABDOMEN: Soft and nontender. No organomegaly or pulsatile mass. No rebound or guarding. Normal bowel sounds. EXTREMITIES: Warm and well perfused. BACK: No CVA tenderness. NEUROLOGICAL: Intact without focal deficits. PSYCHIATRIC: normal affect. MUSCULOSKELETAL: Normally developed with good muscle tone. TRIAGE NURSING DOCUMENTATION REVIEWED. Course Administered Medications Discontinued Medications Albuterol (Albut/Ipratrop 3mg/0.5mg Neb 3 Ml Vial) 3 ml NEB NOW STA Stop: 10/30/19 22:28 Last Admin: 10/30/19 23:59 Dose: 3 ml Documented by: [id number] Hydralazine HCl (Hydralazine Hcl 20 Mg/Ml Vial) 5 mg IV NOW ONE Stop: 10/30/19 22:27 Last Admin: 10/30/19 23:43 Dose: 5 mg Documented by: [id number] Medical Decision Making Differential Diagnosis Differential includes acute coronary syndrome, myocardial infarction, CVA, TIA, anemia, infection, pneumonia, UTI, pyelonephritis, poor nutrition, dehydration, electrolyte disturbance,hypoglycemia. Medical Records Attestation: I reviewed the patient's medical records. Home Medications Current Medication List: was personally reviewed by me Laboratory Data Attestation: I reviewed the patient's lab results. Result diagrams: 10/30/19 23:40 10/30/19 23:40 Lab Results 10/30/19 10/30/19 10/30/19 Range/Units 23:40 23:40 23:40 WBC 14.04 H (4.8-10.8) K/uL RBC 3.07 L (4.2-5.4) M/uL Hgb 9.5 L (12.0-16.0) g/dL Hct 29.9 L (37-47) % MCV 97.4 (80-100) fL MCH 30.9 (25-34) pg MCHC 31.8 L (32-36) g/dL RDW Std Deviation 50.7 H (36.4-46.3) fL RDW Coeff of Michelle 14.5 (11.5-14.5) % Plt Count 360 (130-400) K/uL MPV 10.2 (7.4-10.4) fL Immature Gran % (Auto) 0.7 % Neut % (Auto) 85.3 % Lymph % (Auto) 7.5 % [place] % (Auto) 6.3 % Eos % (Auto) 0.1 % Baso % (Auto) 0.1 % Neut # (Auto) 11.97 H (1.4-6.5) K/uL Lymph # (Auto) 1.06 L (1.2-3.4) K/uL [place] # (Auto) 0.88 H (0.11-0.59) K/uL Eos # (Auto) 0.02 (0-0.5) K/uL Baso # (Auto) 0.01 (0-0.2) K/uL Immature Gran # (Auto) 0.10 H (0.00-0.02) K/uL PT 10.3 (9.0-12.0) Seconds INR 1.0 (0.9-1.1) APTT 25.2 (21.0-31.0) Seconds PTT Ratio 0.9 Sodium 139 (136-145) mmol/L Potassium 3.9 (3.5-5.1) mmol/L Chloride 105 (98-107) mmol/L Carbon Dioxide 25 (21-32) mmol/L Anion Gap 9.0 (3-11) BUN 76 H (7-18) mg/dl Creatinine 3.57 H (0.6-1.2) mg/dl Est Cr Clr Drug Dosing 13.4 ml/min Est GFR ( Amer) 13.1 Est GFR (Non-Af Amer) 11.3 BUN/Creatinine Ratio 21.3 H (10-20) Glucose 176 H (70-99) mg/dl Calcium 9.1 (8.5-10.1) mg/dl Total Bilirubin 0.4 (0.2-1) mg/dl AST 14 L (15-37) U/L ALT 22 (12-78) U/L Alkaline Phosphatase 62 (45-117) U/L Troponin I 0.066 H* (0-0.045) ng/ml Total Protein 6.1 L (6.4-8.2) gm/dl Albumin 2.7 L (3.4-5.0) gm/dl Globulin 3.4 (2.5-4.0) gm/dl Albumin/Globulin Ratio 0.8 L (0.9-2) Imaging Data Attestation: I personally reviewed and interpreted this imaging study as follows: My Impression: Chest x-ray is suggestive of bilateral pneumonia with bilateral infiltrates. ECG Data Attestation: I personally reviewed and interpreted this ECG as follows: Indication: + SOB/dyspnea Rate (beats per minute): 88 ECG Intervals/blocks: + Normal QT-c ECG ST segments: no ST elevation ECG Findings: no PVCs Comparison ECG Date: from (10/15/2019) Change: no significant change Prescription Drug Monitoring [place] Drug Monitoring Program reviewed and no issues identified Blood Pressure Blood Pressure Findings: Elevated blood pressure MDM Narrative The patient presents to the ED with a chief complaint of bilateral pneumonia as well as a cough and some shortness of breath. She had an outpatient x-ray that showed pneumonia. For this reason she was sent here for further evaluation. The patient's initial blood pressure was elevated. She was treated with IV hydralazine for this. She does have an elevated white blood cell count. This could be suggestive of infection. Her troponin is elevated at 0.066. Her EKG did not show any acute ischemic changes. Her exam did reveal some wheezes and crackles bilaterally. She was treated with a DuoNeb treatment as well as IV hydralazine and IV Rocephin and Zithromax. Her blood work shows some anemia but this seems to be improved from her blood work 4 days ago. Her kidney function reveals a creatinine of 3.57. This is about baseline for her. Impression & Plan Bilateral interstitial pneumonia, Elevated troponin, Hypertensive urgency Discharge Plan Visit Data Chief Complaint: Illness Stated Complaint: PNX ED Provider: Shankar Torrez Discharge Problem: Bilateral interstitial pneumonia, Elevated troponin, Hypertensive urgency Patient Disposition: Being Evaluated by Hospitalist Forms Stand Alone Forms: My [facility] new test company Prescriptions Prescriptions: No Action albuterol sulfate [Ventolin HFA] 90 mcg/actuation HFA aerosol inhaler 2 - 4 puff INHALATION QID PRN (Reason: Shortness Of Breath Or Wheezing) Qty: 3 RF: 3 Symbicort 80-4.5 mcg/actuation HFA aerosol inhaler 2 puff INHALATION BID Qty: 3 RF: 3 zafirlukast [Accolate] 20 mg tablet 20 mg PO Q12H Qty: 180 RF: 3 bupropion HCl 300 mg tablet extended release 24 hr 300 mg PO QAM RF: 0 sodium bicarbonate 650 mg tablet 650 mg PO BID RF: 0 brimonidine 0.2 % drops 1 drp OPB BID RF: 0 dorzolamide 2 % drops 1 drp OPR BID RF: 0 ferrous sulfate 325 mg (65 mg iron) Tablet 325 mg PO BID Qty: 0 RF: 0 anastrozole 1 mg Tablet 1 mg PO QPM RF: 0 aspirin [Aspirin Low Dose] 81 mg Tablet,Delayed Release (Dr/Ec) 81 mg PO QPM RF: 0 multivitamin with minerals Tablet 1 tab PO QAM RF: 0 cholecalciferol (vitamin D3) 5,000 unit Capsule 5,000 unit PO QAM RF: 0 metoprolol tartrate 25 mg Tablet 12.5 mg PO BID RF: 0 calcium carbonate-vitamin D3 [Os-Conrad 500 + D3] 500 mg(1,250mg) -200 unit Tablet 1 tab PO QPM RF: 0 Lantus Solostar U-100 Insulin 100 unit/mL (3 mL) Insulin Pen 8 unit SUBCUT HS RF: 0 prednisone 5 mg Tablet 5 mg PO QAM RF: 0 pantoprazole 40 mg Tablet,Delayed Release (Dr/Ec) 40 mg PO QAM RF: 0 acetaminophen [Tylenol Extra Strength] 500 mg Tablet 500 mg PO Q6H PRN (Reason: Pain) RF: 0 diclofenac sodium [Voltaren] 1 % Gel 2 g EXT QID PRN (Reason: back pain) Qty: 100 RF: 0 guaifenesin [Mucinex] 600 mg Tablet Extended Release 12hr 1,200 mg PO Q12 Qty: 30 RF: 0 Desenex 2 % Powder 1 applic EXT PRN PRN (Reason: Rash under skin folds) Qty: 43 RF: 0 ipratropium-albuterol 0.5 mg-3 mg(2.5 mg base)/3 mL Solution For Nebulization 3 ml NEB QIDR PRN (Reason: shortness of breath or wheezing) Qty: 15 RF: 0 hydrocodone-acetaminophen [[place]] 5-325 mg Tablet 1 tab PO Q6H PRN (Reason: pain) Qty: 7 RF: 0 bumetanide 1 mg Tablet 3 mg PO BID17 Qty: 180 RF: 0 prednisone 20 mg Tablet 40 mg PO QAM Qty: 10 RF: 0 potassium chloride [Klor-Con M20] 20 mEq Tablet,Er Particles/Crystals 20 meq PO BID Qty: 60 RF: 0 nystatin [Nystop] 100,000 unit/gram Powder 1 applic EXT Q12 Qty: 15 RF: 0 Referrals Referrals: Gonzales Sauceda Milmine [Primary Care Provider] -
[2019-10-31 00:05] LABS: Basophils # (auto) 0.01 K/uL (0-0.2); Basophils % (auto) 0.1 %; Eosinophils # (auto) 0.02 K/uL (0-0.5); Eosinophils % (auto) 0.1 %; Hematocrit (blood only) 29.9 % (37-47); Hemoglobin 9.5 g/dL (12.0-16.0); Immature Granulocytes % (auto) 0.7 %; Lymphocytes # (auto) 1.06 K/uL (1.2-3.4); Lymphocytes % (auto) 7.5 %; Mean Corpuscular Hemoglobin 30.9 pg (25-34); Mean Corpuscular Hgb Conc 31.8 g/dL (32-36); Mean Corpuscular Volume 97.4 fL (80-100); Mean Platelet Volume 10.2 fL (7.4-10.4); Monocytes # (auto) 0.88 K/uL (0.11-0.59); Monocytes % (auto) 6.3 %; Neutrophils # (auto) 11.97 K/uL (1.4-6.5); Neutrophils % (auto) 85.3 %; Platelet Count 360 K/uL (130-400); RDW Coefficient of Variation 14.5 % (11.5-14.5); RDW Standard Deviation 50.7 fL (36.4-46.3); Red Blood Count 3.07 M/uL (4.2-5.4); White Blood Count 14.04 K/uL (4.8-10.8)
[2019-10-31 00:16] LABS: Partial Thromboplastin Ratio 0.9; Partial Thromboplastin Time 25.2 Seconds (21.0-31.0); Prothrombin Time 10.3 Seconds (9.0-12.0)
[2019-10-31 00:24] LABS: Albumin Level 2.7 gm/dl (3.4-5.0); BUN Creatinine Ratio 21.3 (10-20); Calcium 9.1 mg/dl (8.5-10.1); Creatinine Clr Calc Pharmacy 13.4 ml/min; Est GFR (African American) 13.1; Est GFR (Non-African American) 11.3; Potassium 3.9 mmol/L (3.5-5.1)
[2019-10-31 00:30] LABS: Albumin Globulin Ratio 0.8 (0.9-2); Bilirubin,Total 0.4 mg/dl (0.2-1); Globulin 3.4 gm/dl (2.5-4.0); Total Protein 6.1 gm/dl (6.4-8.2); Troponin I 0.066 ng/ml (0-0.045)
[2019-10-31] MEDS ORDERED: ASPIRIN CHEW 324 MG PO STA (00:31)
[2019-10-31] MEDS ORDERED: cefTRIAXone SODIUM 1,000 MG/50 ML BAG IV STA (00:34)
[2019-10-31] MEDS ORDERED: AZITHROMYCIN 500 MG in DEXTROSE 5% 250 ML IV ONE (00:34)
[2019-10-31] MEDS ORDERED: DEXTROSE 50% 50 ML SYRINGE IV PRN (03:30)
[2019-10-31] MEDS ORDERED: ACETAMINOPHEN 500 MG TAB PO PRN (03:30)
[2019-10-31] MEDS ORDERED: GLUCOSE 40% GEL 15 GM TUBE PO PRN (03:30)
[2019-10-31] MEDS ORDERED: MAGNESIUM HYDROXIDE SUSP 30 ML UDC PO PRN (03:30)
[2019-10-31] MEDS ORDERED: GLUCAGON FOR INJ 1 MG VIAL SQ PRN (03:30)
[2019-10-31] MEDS ORDERED: CARBOHYDRATES FOR HYPOGLYCEMIA PO PRN (03:30)
[2019-10-31] MEDS ORDERED: ACETAMINOPHEN 325 MG TAB PO PRN (03:30)
[2019-10-31] MEDS ORDERED: LINEZOLID 600 MG/300 ML D5W IV SCH (03:30)
[2019-10-31] MEDS ORDERED: ONDANSETRON INJ 2 MG/ML 2 ML VIAL IV PRN (03:30)
[2019-10-31] MEDS ORDERED: ALUMINUM/MAGNESIUM SUSP 30 ML UDC PO PRN (03:30)
[2019-10-31] MEDS ORDERED: GLUCOSE 10 TABS/TUBE PO PRN (03:30)
[2019-10-31] MEDS ORDERED: LINEZOLID CONSULT ACTIVE PRN (03:30)
[2019-10-31] MEDS ORDERED: MICONAZOLE NITRATE POWDER 43 GM EXT PRN (03:30)
[2019-10-31] MEDS ORDERED: LINEZOLID 600 MG/300 ML BAG IV SCH (05:00)
--- NOTE | 2019-10-31 05:40 | History & Physical Report ---
Date of Service October 31, 2019 Assessment & Plan (1) Bilateral interstitial pneumonia: Patient is status post admission at [facility] from 10/12-10/25 for acute exacerbation of CHF and cellulitis of bilateral lower extremities. Patient was found at [facility] to have pneumonia on outpatient x-ray, which is confirmed in the ED tonight. Patient with significant number of antibiotic sensitivities and allergies. We will place on Zyvox 600 mg IV every 12 hours and aztreonam 1 g IV every 8 hours to treat healthcare associated pneumonia. Duonebs every 4 hours while awake and every 2 hours when necessary. Solu-Medrol 40 mg IV every 8 hours Present on Admission?: Yes (2) Elevated troponin: The patient will be admitted to telemetry for serial cardiac enzymes, serial EKG's, cardiac rhythm monitoring. Troponin with mild elevation of 0.066. Present on Admission?: Yes (3) CHF (congestive heart failure): Hypertension/CHF- Continue aspirin, bumetanide, metoprolol and potassium chloride Present on Admission?: Yes (4) Depression: For now, hold bupropion due to potential interaction with Zyvox Present on Admission?: Yes (5) Diabetes mellitus, type 2: Continue Lantus 8 units subcu at bedtime. Placed on Accu-Cheks before meals and at bedtime with NovoLog coverage per scale Present on Admission?: Yes (6) Hypertension: See above Present on Admission?: Yes Admission and Anticipated Discharge Date Admission Date: October 31, 2019 History of Present Illness Chief Complaint: The patient presents to the emergency department after being referred from [facility] where she reportedly had an abnormal chest x-ray earlier in the day today suggesting pneumonia. Primary Care Provider: [facility] The patient is an 79-year-old female with a past medical history including hypertensive urgency, asthma, CHF, depression, history of CVA, protein S deficiency, history of DVT, parastomal hernia, breast cancer, GERD, hyperlipidemia, rheumatoid arthritis, ulcerative colitis, diabetes mellitus type 2, chronic kidney disease and hypertension. She was most recently admitted to [facility] from 10/12-10/25. She reports that she had been feeling well until earlier in the day today, when she began to have difficulty breathing. Allergies Allergy/AdvReac Type Severity Reaction Status Date / Time Bactrim Allergy Severe dizzy,dyseq Verified 10/26/17 14:59 uilibrium bee venom protein (honey bee) Allergy Severe ANAPHYLAXIS Verified 10/31/19 01:59 cefaclor Allergy Severe stiff and Verified 10/31/19 01:59 sore muscles-PT DENIES lisinopril Allergy Severe tongue Verified 10/31/19 01:59 swelling diltiazem Allergy Intermediate rash Verified 10/31/19 01:59 Penicillins Allergy Mild RASH Verified 10/31/19 01:59 tetracycline Allergy Mild UNK-PT Verified 10/31/19 01:59 DENIES amoxicillin Allergy Unknown RASH Verified 10/31/19 01:59 cefuroxime Allergy Unknown TAST Verified 10/31/19 01:59 clavulanic acid Allergy Unknown ITCHING Verified 10/31/19 01:59 levofloxacin Allergy Unknown NAUSEA, Verified 10/31/19 01:59 DIZZINESS baclofen AdvReac Severe Severe Verified 10/31/19 01:59 sedation alendronate sodium AdvReac Intermediate FELT SICK Verified 10/31/19 01:59 Cipro AdvReac Intermediate LEGS ARMS Verified 10/26/17 14:59 STIFF, PAINFUL ciprofloxacin AdvReac Intermediate LEGS ARMS Verified 10/31/19 01:59 STIFF, PAINFUL doxycycline AdvReac Intermediate nausea and Verified 10/31/19 01:59 vomiting metformin AdvReac Intermediate CAUSED Verified 10/31/19 01:59 BACK [employer]. LACTIC ACID LEVELS tramadol AdvReac Intermediate DIZZINESS Verified 10/31/19 01:59 adhesive AdvReac Mild redness Verified 10/31/19 01:59 mercaptopurine AdvReac Mild MADE HER Verified 10/31/19 01:59 VERY ILL olmesartan AdvReac Mild HEADACHE Verified 10/31/19 01:59 Sulfa (Sulfonamide AdvReac Mild CAUSED Verified 10/31/19 01:59 Antibiotics) DIZZINESS sulfamethoxazole AdvReac Mild CAUSED Verified 10/31/19 01:59 DIZZINESS trimethoprim AdvReac Mild BACTRIM Verified 10/31/19 01:59 CAUSED DIZZINESS aspirin AdvReac Unknown CAUSES Verified 10/31/19 01:59 BRUISING Home Medications Home Medications Medication Instructions Recorded Confirmed Type Lanmarcia Solostar U-100 Insulin 8 unit SUBCUT HS 11/22/17 10/31/19 History anastrozole 1 mg PO QPM 11/22/17 10/31/19 History aspirin [Aspirin Low Dose] 81 mg PO QPM 11/22/17 10/31/19 History calcium carbonate-vitamin D3 1 tab PO QPM 11/22/17 10/31/19 History [Os-Conrad 500 + D3] cholecalciferol (vitamin D3) 5,000 unit PO QAM 11/22/17 10/31/19 History metoprolol tartrate 12.5 mg PO BID 11/22/17 10/31/19 History multivitamin with minerals 1 tab PO QAM 11/22/17 10/31/19 History pantoprazole 40 mg PO QAM 11/22/17 10/31/19 History prednisone 5 mg PO QAM 11/22/17 10/31/19 History brimonidine 1 drp OPB BID 06/22/18 10/31/19 History dorzolamide 1 drp OPR BID 06/22/18 10/31/19 History ferrous sulfate 325 mg PO BID #0 tab 06/25/18 10/31/19 Rx budesonide-formoterol HFA 80 2 puff INHALATION BID #3 inhaler 02/01/19 10/31/19 Rx mcg-4.5 mcg/actuation aerosol inhaler zafirlukast 20 mg tablet 20 mg PO Q12H #180 tab 02/01/19 10/31/19 Rx albuterol sulfate 90 mcg/actuation 2 - 4 puff INHALATION QID PRN #3 02/15/19 10/31/19 Rx aerosol inhaler inhaler bupropion HCl 300 mg 24 hr tablet, 300 mg PO QAM tab 03/06/19 10/31/19 History extended release acetaminophen [Tylenol Extra 500 mg PO Q6H PRN 08/25/19 10/31/19 History Strength] Desenex 1 applic EXT PRN PRN #43 gm 08/31/19 10/31/19 Rx diclofenac sodium [Voltaren] 2 g EXT QID PRN #100 gm 08/31/19 10/31/19 Rx guaifenesin [Mucinex] 1,200 mg PO Q12 #30 tab 08/31/19 10/31/19 Rx sodium bicarbonate 650 mg tablet 650 mg PO BID tab 09/13/19 10/31/19 History bumetanide 3 mg PO BID17 #180 tab 10/26/19 10/31/19 Rx hydrocodone-acetaminophen [[place]] 1 tab PO Q6H PRN #7 tab 10/26/19 10/31/19 Rx ipratropium-albuterol 3 ml NEB QIDR PRN #15 ml 10/26/19 10/31/19 Rx nystatin [Nystop] 1 applic EXT Q12 #15 g 10/26/19 10/31/19 Rx potassium chloride [Klor-Con M20] 20 meq PO BID #60 tab 10/26/19 10/31/19 Rx prednisone 40 mg PO QAM #10 tab 10/26/19 10/31/19 Rx Past Med/Surg History Medical History Acute osteomyelitis (06/05/01) "MRSA of the thoracic spine " On 02/05/12 10:49 Wilfredo Melendez wrote "MRSA of the thoracic spine " Asthma Breast cancer, left breast X2--1ST)2005 2)2012---SX,RADIATION Chronic back pain Chronic kidney disease, stage V CKD (chronic kidney disease) Deep vein thrombosis L LEG Fibromyalgia GERD (gastroesophageal reflux disease) Glaucoma BILT EYES Hyperlipidemia Hypertension Pneumonia, organism unspecified (02/05/12) Protein S deficiency Rheumatoid arthritis Spinal stenosis Stroke 07/2017--DIFFICULTY WALKING Trigeminal neuralgia Ulcerative colitis Vitamin D deficiency Surgical History H/O bilateral cataract extraction H/O right inguinal hernia repair History of appendectomy History of bowel resection [address] [facility] [place] of breast biopsy LEFT MALIGNANT X2 History of colonoscopy History of esophagogastroduodenoscopy (EGD) History of gastric surgery 2012---ABCESS ON STOMACH WALL History of lumpectomy of left breast X2 2005 WITH LYMPH NODE REMOVAL, 2012 History of tooth extraction ALL TEETH Family History Brother Family history of diabetes mellitus 2 BROTHERS Mother Family hx of colon cancer Father Family hx of colon cancer Social History Smoking Status: Former smoker Tobacco Type: Cigarettes Second Hand Exposure: No; Do You Dip or Chew Tobacco: No; Tobacco Cessation Education Requested by Patient: No Hx Alcohol Use: No Hx Substance Use: No Preferred Language: Maori Communication Ability: Effective Seismograph Recorder Required: No Beliefs That Will Affect Care: None marital status: Current Living Situation: Rehab Current Living Situation Comment: Patient lives w/ . Feels Safe at Home: Yes Safety Concerns: Feels Safe At This Time Review of Systems Review of Systems: The patient denies chest pain, palpitations, lower extremity swelling, sore throat, fevers, chills, sweats, nausea, vomiting, diarrhea , constipation, abdominal pain, pelvic pain, blood in urine or stool, dysuria, urinary frequency or urgency, lightheadedness, dizziness, headache, rash, abnormal bruising or bleeding, imbalance, focal weakness, numbness or tingling in arms or legs, generalized arthralgias or myalgias, back or neck pain, or night sweats. The review of systems is otherwise negative other than for that already noted above, and at least 10 systems have been reviewed. Physical Exam Physical Exam: The patient is awake, alert and oriented 3, normocephalic and atraumatic, lying in bed and in no acute distress. HEENT--PERRL, EOMI, mucous membranes and oropharynx normal. Neck--supple. No JVD. No bruits. Thyroid normal, trachea midline, no adenopathy. Heart--normal S1 and S2. No murmurs, rubs or gallops. Lungs--few coarse breath sounds and wheezes, right greater than left. No respiratory distress, no accessory muscle use. Abdomen--normal bowel sounds and soft. Nontender. Nondistended. Extremities--no cyanosis or clubbing. No edema. There are good distal pulses b/l. Dermatologic--normal skin turgor, normal color, no abnormal lymph nodes, no rash. Neurologic--cranial nerves II through XII grossly intact. Rheumatologic--normal range of motion. Psychiatric--normal affect. Results & Data Results & Data ([facility]) Vital Signs (Past 12 Hours) Vital Signs Temp Pulse Pulse Resp BP BP Pulse Ox 10/31/19 03:10 97.7 F 73 14 169/83 H 98 10/31/19 03:04 98.2 F 71 20 151/65 H 100 10/31/19 02:57 68 20 168/88 H 99 10/31/19 02:03 83 20 166/75 H 100 10/31/19 01:37 82 20 190/96 H 99 10/31/19 00:17 88 20 174/89 H 100 10/30/19 23:59 99 H 20 98 10/30/19 23:49 89 20 175/82 H 97 10/30/19 23:17 95 10/30/19 23:16 98 H 20 208/114 H 95 10/30/19 21:46 85 20 208/136 H 98 10/30/19 21:21 96 H 20 207/123 H 95 Laboratory Results Laboratory Results WBC 14.04 K/uL (4.8-10.8) H 10/30/19 23:40 RBC 3.07 M/uL (4.2-5.4) L 10/30/19 23:40 Hgb 9.5 g/dL (12.0-16.0) L 10/30/19 23:40 Hct 29.9 % (37-47) L 10/30/19 23:40 MCV 97.4 fL (80-100) 10/30/19 23:40 MCH 30.9 pg (25-34) 10/30/19 23:40 MCHC 31.8 g/dL (32-36) L 10/30/19 23:40 RDW Std Deviation 50.7 fL (36.4-46.3) H 10/30/19 23:40 RDW Coeff of Michelle 14.5 % (11.5-14.5) 10/30/19 23:40 Plt Count 360 K/uL (130-400) 10/30/19 23:40 MPV 10.2 fL (7.4-10.4) 10/30/19 23:40 Immature Gran % (Auto) 0.7 % 10/30/19 23:40 Neut % (Auto) 85.3 % 10/30/19 23:40 Lymph % (Auto) 7.5 % 10/30/19 23:40 [place] % (Auto) 6.3 % 10/30/19 23:40 Eos % (Auto) 0.1 % 10/30/19 23:40 Baso % (Auto) 0.1 % 10/30/19 23:40 Neut # (Auto) 11.97 K/uL (1.4-6.5) H 10/30/19 23:40 Lymph # (Auto) 1.06 K/uL (1.2-3.4) L 10/30/19 23:40 [place] # (Auto) 0.88 K/uL (0.11-0.59) H 10/30/19 23:40 Eos # (Auto) 0.02 K/uL (0-0.5) 10/30/19 23:40 Baso # (Auto) 0.01 K/uL (0-0.2) 10/30/19 23:40 Immature Gran # (Auto) 0.10 K/uL (0.00-0.02) H 10/30/19 23:40 PT 10.3 Seconds (9.0-12.0) 10/30/19 23:40 INR 1.0 (0.9-1.1) 10/30/19 23:40 APTT 25.2 Seconds (21.0-31.0) 10/30/19 23:40 PTT Ratio 0.9 10/30/19 23:40 Sodium 139 mmol/L (136-145) 10/30/19 23:40 Potassium 3.9 mmol/L (3.5-5.1) 10/30/19 23:40 Chloride 105 mmol/L (98-107) 10/30/19 23:40 Carbon Dioxide 25 mmol/L (21-32) 10/30/19 23:40 Anion Gap 9.0 (3-11) 10/30/19 23:40 BUN 76 mg/dl (7-18) H 10/30/19 23:40 Creatinine 3.57 mg/dl (0.6-1.2) H 10/30/19 23:40 Est Cr Clr Drug Dosing 13.4 ml/min 10/30/19 23:40 Est GFR ( Amer) 13.1 10/30/19 23:40 Est GFR (Non-Af Amer) 11.3 10/30/19 23:40 BUN/Creatinine Ratio 21.3 (10-20) H 10/30/19 23:40 Glucose 176 mg/dl (70-99) H 10/30/19 23:40 Calcium 9.1 mg/dl (8.5-10.1) 10/30/19 23:40 Total Bilirubin 0.4 mg/dl (0.2-1) 10/30/19 23:40 AST 14 U/L (15-37) L 10/30/19 23:40 ALT 22 U/L (12-78) 10/30/19 23:40 Alkaline Phosphatase 62 U/L (45-117) 10/30/19 23:40 Troponin I 0.066 ng/ml (0-0.045) H* 10/30/19 23:40 Total Protein 6.1 gm/dl (6.4-8.2) L 10/30/19 23:40 Albumin 2.7 gm/dl (3.4-5.0) L 10/30/19 23:40 Globulin 3.4 gm/dl (2.5-4.0) 10/30/19 23:40 Albumin/Globulin Ratio 0.8 (0.9-2) L 10/30/19 23:40 Code Status & VTE Plan Code Status Full code VTE Prophylaxis Plan VTE Prophylaxis will be ordered: Yes PG Care Time/CCT Total # of Minutes Spent Total Time Spent with Patient: Total time spent is greater than 50% in coordination of care (as documented) at patient's floor/unit and/or counseling patient: Coding Level of Care Code 02285 Initial Inpt Care Lvl 3 Diagnoses Bilateral interstitial pneumonia J84.9 Elevated troponin R79.89 CHF (congestive heart failure) I50.9 Depression F32.9 Diabetes mellitus, type 2 E11.9 Hypertension I10
[2019-10-31] MEDS ORDERED: AZTREONAM 1,000 MG in DEXTROSE 5% 100 ML IV SCH (06:00)
[2019-10-31] MEDS: ALBUT/IPRATROP 3MG/0.5MG NEB 3 ML VIAL NEB SCH ×4 (07:12→19:19)
--- NOTE | 2019-10-31 07:51 | XRay Report ---
XR chest 1V portable CLINICAL HISTORY: Dyspnea COMPARISON STUDY: 10/22/2019 FINDINGS: The heart is enlarged. There is radiographic evidence of congestive failure. There is inter linda decrease in the bilateral pleural effusions. Basilar airspace opacities are likely atelectatic. T here is a right-sided A-Port catheter. There is an old ununited proximal right humeral fracture.[ IMPRESSION: 1. Cardiomegaly and radiographic evidence of congestive failure/fluid overload 2. Decreasing bilateral pleural effusions. 3. Basilar airspace opacities, likely representing atelectasis ACT 112: Negative or not required by law. Electronically signed by: Thai Kohli M.D. 10/31/2019 7:50 AM
[2019-10-31] MEDS: INSULIN ASPART 100 UNITS/ML 3 ML PEN SC SCH ×4 (08:45→21:33)
[2019-10-31] MEDS: methylPREDNISolone 40 MG in SYRINGE 0 ML IV SCH ×3 (08:46→22:58)
[2019-10-31] MEDS: PANTOprazole 40 MG TAB PO SCH (08:47)
[2019-10-31] MEDS: NYSTATIN POWDER 15GM BTL EXT SCH ×2 (08:47→21:32)
[2019-10-31] MEDS: BRIMONIDINE TARTRATE 0.2% 5ML OPB SCH ×2 (08:48→21:32)
[2019-10-31] MEDS: CHOLECALCIFEROL 1,000 UNITS 25 MCG TAB PO SCH (08:48)
[2019-10-31] MEDS: METOPROLOL TARTRATE 25 MG TAB PO SCH ×2 (08:49→21:31)
[2019-10-31] MEDS: guaiFENesin 600 MG TABCR PO SCH ×2 (08:49→21:31)
[2019-10-31] MEDS: FERROUS SULFATE 325 MG TAB PO SCH ×2 (08:49→21:31)
[2019-10-31] MEDS: BUMETANIDE 1 MG TAB PO SCH ×2 (08:49→16:33)
[2019-10-31] MEDS: MULTIVITAMIN TAB PO SCH (08:51)
[2019-10-31] MEDS: DORZOLAMIDE HCL 2% OPH SOLN 10 ML BTL OPR SCH ×2 (08:52→21:32)
[2019-10-31] MEDS: HEPARIN SOD 5,000 UNIT/0.5 ML VIAL SQ SCH ×2 (08:52→21:31)
[2019-10-31] MEDS: POTASSIUM CHLORIDE 20 MEQ TABCR PO SCH ×2 (08:52→21:31)
[2019-10-31] MEDS: SODIUM BICARBONATE 650 MG TAB PO SCH ×2 (08:52→21:31)
[2019-10-31] MEDS ORDERED: BRIMONIDINE TART 0.2% OP SOLN PER DROP CHARGE OPB SCH (09:00)
[2019-10-31 10:02] LABS: Basophils # (auto) 0.01 K/uL (0-0.2); Basophils % (auto) 0.1 %; Eosinophils # (auto) 0.32 K/uL (0-0.5); Eosinophils % (auto) 2.5 %; Hematocrit (blood only) 28.1 % (37-47); Hemoglobin 8.9 g/dL (12.0-16.0); Immature Granulocytes # (auto) 0.08 K/uL (0.00-0.02); Immature Granulocytes % (auto) 0.6 %; Lymphocytes # (auto) 1.88 K/uL (1.2-3.4); Lymphocytes % (auto) 14.9 %; Mean Corpuscular Hemoglobin 30.9 pg (25-34); Mean Corpuscular Hgb Conc 31.7 g/dL (32-36); Mean Corpuscular Volume 97.6 fL (80-100); Mean Platelet Volume 10.1 fL (7.4-10.4); Monocytes % (auto) 7.9 %; Platelet Count 325 K/uL (130-400); RDW Coefficient of Variation 14.7 % (11.5-14.5); RDW Standard Deviation 51.7 fL (36.4-46.3); Red Blood Count 2.88 M/uL (4.2-5.4); White Blood Count 12.59 K/uL (4.8-10.8)
[2019-10-31 10:36] LABS: BUN Creatinine Ratio 21.7 (10-20); Calcium 8.7 mg/dl (8.5-10.1); Creatinine Clr Calc Pharmacy 14.1 ml/min; Est GFR (African American) 13.5; Est GFR (Non-African American) 11.6; Potassium 3.5 mmol/L (3.5-5.1)
[2019-10-31] MEDS ORDERED: HYDROCODONE/ACETAMOPHEN 5/325MG TAB PO PRN (17:30)
[2019-10-31] MEDS: ANASTROZOLE 1 MG TAB PO SCH (21:31)
[2019-10-31] MEDS: CALCIUM 600MG + VIT D 400 IU TAB PO SCH (21:31)
[2019-10-31] MEDS: ASPIRIN 81 MG ECTAB PO SCH (21:31)
[2019-10-31] MEDS: INSULIN GLARGINE SOLOSTAR 100 UNITS/ML 3 ML PEN SQ SCH (21:35)
--- NOTE | 2019-10-31 21:58 | History & Physical Bridge Note ---
Date of Service October 31, 2019 History & Physical Bridge Note I have examined the patient, reviewed the History & Physical and in the interval since the performance of the History & Physical I have noted the following changes of clinical significance: patient breathing really well, no fever, no cough, no clinical signs of pneumonia there were concerns from physician at [facility] that she had wheezing, prompted the chest x-ray comparing CXR to prior films, she has a lot of scar tissue, some pulmonary congestion, atelectasis, no clear signs of pneumonia she just completed a 14 day course of Aztreonam for cellulitis on 10/25 checked a procalcitonin, it is normal arguing against bacterial infection updated patient and her daughter, we will observe patient off of antibiotics, continue Bumex 3gm PO BID repeat CXR in the morning get PT/OT involved
--- NOTE | 2019-10-31 22:39 | Electrocardiogram Report ---
Test Reason : Blood Pressure : / mmHG Vent. Rate : 088 BPM Atrial Rate : 088 BPM P-R Int : 176 ms QRS Dur : 102 ms QT Int : 346 ms P-R-T Axes : -06 -14 158 degrees QTc Int : 418 ms Normal sinus rhythm Possible Anterior infarct (cited on or before 14-OCT-2019) Inferior infarct Abnormal ECG When compared with ECG of 15-OCT-2019 06:59, Criteria for Inferior infarct is now Present Confirmed by Kin Stafford ([id number]) on 10/31/2019 10:39:09 PM Referred By: Gonzales gray [facility] Confirmed By:Kin Stafford
[2019-10-31] MEDS: HYDROCODONE/ACETAMOPHEN 5/325MG TAB PO PRN (22:57)
[2019-11-01 05:53] LABS: Hematocrit (blood only) 28.4 % (37-47); Immature Granulocytes # (auto) 0.05 K/uL (0.00-0.02); Immature Granulocytes % (auto) 0.5 %; Lymphocytes # (auto) 0.52 K/uL (1.2-3.4); Lymphocytes % (auto) 4.7 %; Mean Corpuscular Hemoglobin 30.6 pg (25-34); Mean Corpuscular Hgb Conc 31.7 g/dL (32-36); Mean Corpuscular Volume 96.6 fL (80-100); Monocytes # (auto) 0.13 K/uL (0.11-0.59); Monocytes % (auto) 1.2 %; Neutrophils # (auto) 10.39 K/uL (1.4-6.5); Neutrophils % (auto) 93.6 %; Platelet Count 314 K/uL (130-400); RDW Coefficient of Variation 14.6 % (11.5-14.5); RDW Standard Deviation 50.7 fL (36.4-46.3); Red Blood Count 2.94 M/uL (4.2-5.4); White Blood Count 11.09 K/uL (4.8-10.8)
[2019-11-01 06:39] LABS: BUN Creatinine Ratio 21.2 (10-20); Calcium 9.1 mg/dl (8.5-10.1); Est GFR (African American) 13.3; Est GFR (Non-African American) 11.5; Potassium 4.2 mmol/L (3.5-5.1)
[2019-11-01] MEDS: ALBUT/IPRATROP 3MG/0.5MG NEB 3 ML VIAL NEB SCH ×4 (07:19→19:07)
--- NOTE | 2019-11-01 07:32 | XRay Report ---
XR chest 1V portable HISTORY: 79 years-old Female dyspnea, follow up from 10/29 acute shortness of breath. COMPARISON: Chest radiograph 10/30/2019 TECHNIQUE: Portable AP view of the chest FINDINGS: Cardiac silhouette is enlarged. Pulmonary vascular congestion with stable to slightly improved inters titial coarsening. Trace right and small left pleural effusions with left midlung and left lung base opacities. Unchanged positioning of the right pectoral Topzoy-c-[id number] catheter. No pneumothorax. Remot e ununited fracture deformity of the proximal right humerus. Degenerative changes of the shoulders an d spine. IMPRESSION: 1. Cardiomegaly with stable to slightly improved pulmonary edema. 2. Trace right and small left pleural effusions. 3. Left basilar opacities are suggestive of atelectasis versus pneumonitis. ACT 112: Negative or not required by law. The above report was generated using voice recognition software. It may contain grammatical, syntax o r spelling errors. Electronically signed by: Rodolfo Cavanaugh M.D. 11/01/2019 7:31 AM
[2019-11-01] MEDS: POTASSIUM CHLORIDE 20 MEQ TABCR PO SCH ×2 (08:03→20:41)
[2019-11-01] MEDS: METOPROLOL TARTRATE 25 MG TAB PO SCH ×2 (08:03→20:50)
[2019-11-01] MEDS: PANTOprazole 40 MG TAB PO SCH (08:03)
[2019-11-01] MEDS: guaiFENesin 600 MG TABCR PO SCH ×2 (08:03→20:41)
[2019-11-01] MEDS: SODIUM BICARBONATE 650 MG TAB PO SCH ×2 (08:04→20:41)
[2019-11-01] MEDS: methylPREDNISolone 40 MG in SYRINGE 0 ML IV SCH (08:04)
[2019-11-01] MEDS: FERROUS SULFATE 325 MG TAB PO SCH ×2 (08:04→20:41)
[2019-11-01] MEDS: MULTIVITAMIN TAB PO SCH (08:05)
[2019-11-01] MEDS: DORZOLAMIDE HCL 2% OPH SOLN 10 ML BTL OPR SCH ×2 (08:05→20:42)
[2019-11-01] MEDS: BUMETANIDE 1 MG TAB PO SCH ×2 (08:05→17:06)
[2019-11-01] MEDS: CHOLECALCIFEROL 1,000 UNITS 25 MCG TAB PO SCH (08:05)
[2019-11-01] MEDS: HEPARIN SOD 5,000 UNIT/0.5 ML VIAL SQ SCH ×2 (08:06→20:40)
[2019-11-01] MEDS: BRIMONIDINE TARTRATE 0.2% 5ML OPB SCH ×2 (08:07→20:42)
[2019-11-01] MEDS: NYSTATIN POWDER 15GM BTL EXT SCH ×2 (08:07→20:42)
[2019-11-01] MEDS: INSULIN ASPART 100 UNITS/ML 3 ML PEN SC SCH ×4 (08:08→20:39)
--- NOTE | 2019-11-01 20:17 | Hospitalist Progress Note ---
Date of Service November 01, 2019 Assessment & Plan (1) Acute on chronic diastolic (congestive) heart failure: initial CXR with increased pulmonary congestion treated with Bumex 3mg PO BID repeat CXR today with less congestion breathing room air, no distress (2) Atelectasis of left lung: CXR with left lower lobe atelectasis encourage incentive spirometer use initially suspected to have pneumonia, her WBC was high at 15k however, she had no fever, her wheezing was just compensatory with her COPD and her procalcitonin was normal stopped antibiotics on 10/30 no fever, WBC down to 11k will continue to encourage deep breathing, observe for any clinical signs of pneumonia (3) Elevated troponin: no chest pain, minimal elevation of troponin, no EKG changes likely just chronic finding due to CKD stage V (4) CHF (congestive heart failure): Hypertension/CHF- Continue aspirin, bumetanide, metoprolol and potassium chloride stable today, euvolemic (5) Depression: For now, resume Buproprion (6) Diabetes mellitus, type 2: Continue Lantus 8 units subcu at bedtime. Placed on Accu-Cheks before meals and at bedtime with NovoLog coverage per scale (7) Hypertension: See above (8) Back pain: ongoing issue, chronic had CT lumbar spine last admission that did not show any acute changes no increase in her pain, no injuries continue [place] Admission and Anticipated Discharge Date Admission Date: October 31, 2019 Subjective patient doing well today, breathing stable on room air she was able to get OOB into a chair, metz removed CXR this morning viewed by myself, she has less pulmonary edema, she has LLL atelectasis encouraged deep breathing, brought her an incentive spirometer reviewed labs, WBC is 11k, hb stable, Cr is 3.5 and electrolytes stable will downgrade to medical floor get PT/OT to evaluate her, she does not want to return to [facility] she c/o right leg numbness, she says that this has been days reviewed chart, she had an MRI of the brain that showed no acute changes, CT of the lumbar and thoracic spine that were negative for acute bony changes Review of Systems Review of Systems: All systems reviewed & are unremarkable except as noted in Subjective Physical Exam Constitutional: well developed and + obese; no acute distress Eyes: PERRL, conjunctivae normal, anicteric sclerae ENMT: external ear and nose normal, oropharynx normal Neck: trachea midline, no thyromegaly Respiratory: normal respiratory effort, lungs clear to auscultation Auscultation: + diminished lung sounds (bases) Cardiovascular: RRR, no murmur, no edema Gastrointestinal (Abdomen): normal bowel sounds, soft, nontender, no hepatosplenomegaly Musculoskeletal: Head/Neck/Chest: normocephalic, head atraumatic and neck supple Spine: + limited thoraco-lumbar ROM Extremities: extremities normal to inspection and + abnormal strength (weakness, generalized) Skin: no rashes, warm and dry Neurologic: CN's II-XI intact bilaterally, deep tendon reflexes 2+ bilaterally, moves all extremities and awake; + abnormal sensation to monofilament (decreased sensation in right foot, lower leg) and no focal motor deficits Psychiatric: A+Ox3, euthymic affect Lymphatic: no cervical or axillary lymphadenopathy Results & Data Results & Data ([facility]) Vital Signs (Past 12 Hours) Vital Signs Temp Pulse Resp BP Pulse Ox 11/01/19 19:07 88 18 96 11/01/19 15:42 37.0 C 75 20 162/85 H 96 11/01/19 15:04 75 16 96 11/01/19 13:52 36.6 C 80 171/77 H 95 11/01/19 11:39 36.5 C 83 18 171/78 H 97 11/01/19 10:43 73 16 92 Laboratory Results Laboratory Results - last 24 hr 10/31/19 11/01/19 11/01/19 20:47 05:42 05:42 WBC 11.09 H RBC 2.94 L Hgb 9.0 L Hct 28.4 L MCV 96.6 MCH 30.6 MCHC 31.7 L RDW Std Deviation 50.7 H RDW Coeff of Michelle 14.6 H Plt Count 314 MPV 10.0 Immature Gran % (Auto) 0.5 Neut % (Auto) 93.6 Lymph % (Auto) 4.7 [place] % (Auto) 1.2 Eos % (Auto) 0.0 Baso % (Auto) 0.0 Neut # (Auto) 10.39 H Lymph # (Auto) 0.52 L [place] # (Auto) 0.13 Eos # (Auto) 0.00 Baso # (Auto) 0.00 Immature Gran # (Auto) 0.05 H Sodium 138 Potassium 4.2 D Chloride 104 Carbon Dioxide 24 Anion Gap 10.0 BUN 75 H Creatinine 3.53 H Est Cr Clr Drug Dosing 14.0 Est GFR ( Amer) 13.3 Est GFR (Non-Af Amer) 11.5 BUN/Creatinine Ratio 21.2 H Glucose 162 H POC Glucose 151 H Calcium 9.1 11/01/19 11/01/19 11/01/19 07:13 11:16 16:44 WBC RBC Hgb Hct MCV MCH MCHC RDW Std Deviation RDW Coeff of Michelle Plt Count MPV Immature Gran % (Auto) Neut % (Auto) Lymph % (Auto) [place] % (Auto) Eos % (Auto) Baso % (Auto) Neut # (Auto) Lymph # (Auto) [place] # (Auto) Eos # (Auto) Baso # (Auto) Immature Gran # (Auto) Sodium Potassium Chloride Carbon Dioxide Anion Gap BUN Creatinine Est Cr Clr Drug Dosing Est GFR ( Amer) Est GFR (Non-Af Amer) BUN/Creatinine Ratio Glucose POC Glucose 196 H 101 H 118 H Calcium 11/01/19 20:10 WBC RBC Hgb Hct MCV MCH MCHC RDW Std Deviation RDW Coeff of Michelle Plt Count MPV Immature Gran % (Auto) Neut % (Auto) Lymph % (Auto) [place] % (Auto) Eos % (Auto) Baso % (Auto) Neut # (Auto) Lymph # (Auto) [place] # (Auto) Eos # (Auto) Baso # (Auto) Immature Gran # (Auto) Sodium Potassium Chloride Carbon Dioxide Anion Gap BUN Creatinine Est Cr Clr Drug Dosing Est GFR ( Amer) Est GFR (Non-Af Amer) BUN/Creatinine Ratio Glucose POC Glucose 232 H Calcium Medications Administered Current Inpatient Medications Acetaminophen (Acetaminophen 325 Mg Tab) 650 mg PO Q4H PRN PRN Reason: Pain or Fever Stop: 11/30/19 03:29 Hydrocodone Bitart/Acetaminophen (Hydrocodone/Acetamophen 5/325mg Tab) 1 tab PO Q6H PRN PRN Reason: Moderate Pain Stop: 11/14/19 03:33 Last Admin: 10/31/19 22:57 Dose: 1 tab Documented by: Hydrocodone Bitart/Acetaminophen (Hydrocodone/Acetamophen 5/325mg Tab) 1 tab PO Q6H PRN PRN Reason: Pain Stop: 11/14/19 17:29 Al Hydrox/Mg Hydrox/Simethicone (Aluminum/Magnesium Susp 30 Ml Udc) 15 ml PO Q4H PRN PRN Reason: Dyspepsia Stop: 11/30/19 03:29 Albuterol (Albut/Ipratrop 3mg/0.5mg Neb 3 Ml Vial) 3 ml NEB QIDR JESSICA Stop: 11/30/19 06:59 Last Admin: 11/01/19 19:07 Dose: 3 ml Documented by: Anastrozole (Anastrozole 1 Mg Tab) 1 mg PO QPM JESSICA Stop: 11/30/19 20:59 Last Admin: 10/31/19 21:31 Dose: 1 mg Documented by: Aspirin (Aspirin 81 Mg Ectab) 81 mg PO QPM JESSICA Stop: 11/30/19 20:59 Last Admin: 10/31/19 21:31 Dose: 81 mg Documented by: Brimonidine Tartrate (Brimonidine Tartrate 0.2% 5ml) 1 drops OPB BID JESSICA Stop: 11/30/19 08:59 Last Admin: 11/01/19 08:07 Dose: 1 drops Documented by: Bumetanide (Bumetanide 1 Mg Tab) 3 mg PO BID17 [facility] Stop: 11/30/19 08:59 Last Admin: 11/01/19 17:06 Dose: 3 mg Documented by: Dextrose (Dextrose 50% 50 Ml Syringe) 25 - 50 ml IV UD PRN; Protocol PRN Reason: Hypoglycemia Protocol Stop: 11/30/19 03:29 Diclofenac Sodium (Diclofenac Sod 1% Gel 100 Gm Tube) 2 gm EXT QID PRN PRN Reason: back pain Stop: 11/30/19 03:29 Dorzolamide HCl (Dorzolamide Hcl 2% Oph Soln 10 Ml Btl) 1 drops OPR BID JESSICA Stop: 11/30/19 08:59 Last Admin: 11/01/19 08:05 Dose: 1 drops Documented by: Ferrous Sulfate (Ferrous Sulfate 325 Mg Tab) 325 mg PO BID JESSICA Stop: 11/30/19 08:59 Last Admin: 11/01/19 08:04 Dose: 325 mg Documented by: Glucagon (Glucagon For Inj 1 Mg Vial) 1 mg SQ UD PRN; Protocol PRN Reason: Hypoglycemia Protocol Stop: 11/30/19 03:29 Glucose (Glucose 10 Tabs/Tube) 4 - 8 tabs PO UD PRN; Protocol PRN Reason: Hypoglycemia Protocol Stop: 11/30/19 03:29 Glucose (Glucose 40% Gel 15 Gm Tube) 15 - 30 gm PO UD PRN; Protocol PRN Reason: Hypoglycemia Protocol Stop: 11/30/19 03:29 Guaifenesin (Guaifenesin 600 Mg Tabcr) 1,200 mg PO Q12 JESSICA Stop: 11/30/19 08:59 Last Admin: 11/01/19 08:03 Dose: 1,200 mg Documented by: Heparin Sodium (Porcine) (Heparin Sod 5,000 Unit/0.5 Ml Vial) 5,000 units SQ Q12 JESSICA Stop: 11/30/19 08:59 Last Admin: 11/01/19 08:06 Dose: 5,000 units Documented by: Heparin Sodium (Porcine) (Heparin 100 Unit/Ml 5ml Flush) 5 ml FLUSH PRN PRN PRN Reason: Flush Stop: 11/30/19 23:57 Insulin Aspart (Insulin Aspart 100 Units/Ml 3 Ml Pen) 0 units SC ACHS JESSICA Stop: 11/30/19 07:29 Last Admin: 11/01/19 17:09 Dose: 3 units Documented by: Insulin Glargine (Insulin Glargine Solostar 100 Units/Ml 3 Ml Pen) 8 units SQ HS [facility] Stop: 11/30/19 20:59 Last Admin: 10/31/19 21:35 Dose: 8 units Documented by: Magnesium Hydroxide (Magnesium Hydroxide Susp 30 Ml Udc) 30 ml PO Q12H PRN PRN Reason: Constipation Stop: 11/30/19 03:29 Metoprolol Tartrate (Metoprolol Tartrate 25 Mg Tab) 12.5 mg PO BID [facility] Stop: 11/30/19 08:59 Last Admin: 11/01/19 08:03 Dose: 12.5 mg Documented by: Miconazole Nitrate (Miconazole Nitrate Powder 43 Gm) 1 appln EXT DAILY PRN PRN Reason: Rash under skin folds Stop: 11/30/19 03:29 Miscellaneous (Accolate- Order Awaiting Action) 1 ea N/A QS [facility] Stop: 11/30/19 07:59 Last Admin: 11/01/19 17:06 Dose: Not Given Documented by: Miscellaneous (Carbohydrates For Hypoglycemia ) 15 - 30 gm PO UD PRN PRN Reason: Hypoglycemia Protocol Stop: 11/30/19 03:29 Multivitamins (Multivitamin Tab) 1 tab PO QAM JESSICA Stop: 11/30/19 08:59 Last Admin: 11/01/19 08:05 Dose: 1 tab Documented by: Multivitamins/Minerals (Calcium 600mg + Vit D 400 Iu Tab) 1 tab PO QPM JESSICA Stop: 11/30/19 20:59 Last Admin: 10/31/19 21:31 Dose: 1 tab Documented by: Nystatin (Nystatin Powder 15gm Btl) 1 appln EXT Q12 JESSICA Stop: 11/30/19 08:59 Last Admin: 11/01/19 08:07 Dose: 1 appln Documented by: Ondansetron HCl (Ondansetron Inj 2 Mg/Ml 2 Ml Vial) 4 mg IV Q6H PRN PRN Reason: Nausea Stop: 11/30/19 03:29 Pantoprazole Sodium (Pantoprazole 40 Mg Tab) 40 mg PO QAM [facility] Stop: 11/30/19 08:59 Last Admin: 11/01/19 08:03 Dose: 40 mg Documented by: Potassium Chloride (Potassium Chloride 20 Meq Tabcr) 20 meq PO BID JESSICA Stop: 11/30/19 08:59 Last Admin: 11/01/19 08:03 Dose: 20 meq Documented by: Sodium Bicarbonate (Sodium Bicarbonate 650 Mg Tab) 650 mg PO BID JESSICA Stop: 11/30/19 08:59 Last Admin: 11/01/19 08:04 Dose: 650 mg Documented by: Vitamin D (Cholecalciferol 1,000 Units 25 Mcg Tab) 5,000 units PO QAM JESSICA Stop: 11/30/19 08:59 Last Admin: 11/01/19 08:05 Dose: 5,000 units Documented by: PG Care Time/CCT Total # of Minutes Spent Total Time Spent with Patient: Total time spent is greater than 50% in coordination of care (as documented) at patient's floor/unit and/or counseling patient: Coding Level of Care Code 19567 Subseq Hosp Care Lvl 2 Diagnoses Acute on chronic diastolic (congestive) heart failure I50.33 Atelectasis of left lung J98.11 Elevated troponin R79.89 CHF (congestive heart failure) I50.9 Depression F32.9 Diabetes mellitus, type 2 E11.9 Hypertension I10 Back pain M54.9
[2019-11-01] MEDS: INSULIN GLARGINE SOLOSTAR 100 UNITS/ML 3 ML PEN SQ SCH (20:38)
[2019-11-01] MEDS: DICLOFENAC SOD 1% GEL 100 GM TUBE EXT PRN (20:38)
[2019-11-01] MEDS: CALCIUM 600MG + VIT D 400 IU TAB PO SCH (20:41)
[2019-11-01] MEDS: ASPIRIN 81 MG ECTAB PO SCH (20:41)
[2019-11-01] MEDS: ANASTROZOLE 1 MG TAB PO SCH (20:41)
[2019-11-02] MEDS: HYDROCODONE/ACETAMOPHEN 5/325MG TAB PO PRN (00:16)
[2019-11-02] MEDS: DICLOFENAC SOD 1% GEL 100 GM TUBE EXT PRN (02:23)
[2019-11-02] MEDS: HEPARIN 100 UNIT/ML 5ML FLUSH FLUSH PRN ×2 (06:07→07:52)
[2019-11-02 06:38] LABS: Basophils # (auto) 0.01 K/uL (0-0.2); Basophils % (auto) 0.1 %; Eosinophils # (auto) 0.25 K/uL (0-0.5); Hemoglobin 8.9 g/dL (12.0-16.0); Immature Granulocytes % (auto) 0.8 %; Lymphocytes # (auto) 1.95 K/uL (1.2-3.4); Lymphocytes % (auto) 15.7 %; Mean Corpuscular Hemoglobin 31.1 pg (25-34); Mean Corpuscular Hgb Conc 31.8 g/dL (32-36); Mean Corpuscular Volume 97.9 fL (80-100); Mean Platelet Volume 10.2 fL (7.4-10.4); Monocytes # (auto) 0.97 K/uL (0.11-0.59); Monocytes % (auto) 7.8 %; Neutrophils # (auto) 9.16 K/uL (1.4-6.5); Neutrophils % (auto) 73.6 %; Platelet Count 292 K/uL (130-400); RDW Coefficient of Variation 14.9 % (11.5-14.5); RDW Standard Deviation 52.3 fL (36.4-46.3); Red Blood Count 2.86 M/uL (4.2-5.4); White Blood Count 12.44 K/uL (4.8-10.8)
[2019-11-02] MEDS: ALBUT/IPRATROP 3MG/0.5MG NEB 3 ML VIAL NEB SCH ×4 (07:07→19:33)
[2019-11-02 07:13] LABS: Calcium 9.3 mg/dl (8.5-10.1); Creatinine Clr Calc Pharmacy 13.5 ml/min; Est GFR (African American) 12.7; Magnesium 2.2 mg/dl (1.8-2.4); Phosphorus 3.8 mg/dl (2.5-4.9); Potassium 3.9 mmol/L (3.5-5.1)
[2019-11-02] MEDS: FERROUS SULFATE 325 MG TAB PO SCH ×2 (07:28→21:54)
[2019-11-02] MEDS: POTASSIUM CHLORIDE 20 MEQ TABCR PO SCH ×2 (07:28→21:54)
[2019-11-02] MEDS: CHOLECALCIFEROL 1,000 UNITS 25 MCG TAB PO SCH (07:29)
[2019-11-02] MEDS: BUMETANIDE 1 MG TAB PO SCH ×2 (07:29→16:58)
[2019-11-02] MEDS: METOPROLOL TARTRATE 25 MG TAB PO SCH ×2 (07:29→22:05)
[2019-11-02] MEDS: MULTIVITAMIN TAB PO SCH (07:30)
[2019-11-02] MEDS: HEPARIN SOD 5,000 UNIT/0.5 ML VIAL SQ SCH ×2 (07:30→21:55)
[2019-11-02] MEDS: guaiFENesin 600 MG TABCR PO SCH ×2 (07:30→21:53)
[2019-11-02] MEDS: SODIUM BICARBONATE 650 MG TAB PO SCH ×2 (07:30→21:55)
[2019-11-02] MEDS: DORZOLAMIDE HCL 2% OPH SOLN 10 ML BTL OPR SCH ×2 (07:31→21:56)
[2019-11-02] MEDS: BRIMONIDINE TARTRATE 0.2% 5ML OPB SCH ×2 (07:42→21:56)
[2019-11-02] MEDS: NYSTATIN POWDER 15GM BTL EXT SCH ×2 (07:43→22:08)
[2019-11-02] MEDS: INSULIN GLARGINE SOLOSTAR 100 UNITS/ML 3 ML PEN SQ SCH (08:43)
[2019-11-02] MEDS: INSULIN ASPART 100 UNITS/ML 3 ML PEN SC SCH ×4 (08:44→21:52)
[2019-11-02] MEDS: BuPROPion XL 300 MG TABCR PO SCH (09:08)
[2019-11-02] MEDS: FLUTICASONE/VILANTEROL 100/25MCG 14 PUFFS/INHALER INH SCH (09:08)
[2019-11-02] MEDS: predniSONE 10 MG TABLET PO SCH (09:08)
[2019-11-02] MEDS: PANTOprazole 40 MG TAB PO SCH (09:08)
--- NOTE | 2019-11-02 19:44 | Hospitalist Progress Note ---
Date of Service November 02, 2019 Assessment & Plan (1) Acute on chronic diastolic (congestive) heart failure: initial CXR with increased pulmonary congestion treated with Bumex 3mg PO BID repeat CXR 10/31 with less congestion breathing room air, no distress continue to use incentive spirometer (2) Atelectasis of left lung: CXR with left lower lobe atelectasis encourage incentive spirometer use, she is using several times an hour she is sitting up in the chair as often as possible initially suspected to have pneumonia, her WBC was high at 15k however, she had no fever, her wheezing was just compensatory with her COPD and her procalcitonin was normal stopped antibiotics on 10/30 no fever, WBC is 12k with only 70% PMN will continue to encourage deep breathing, observe for any clinical signs of pneumonia, today there are none (3) Elevated troponin: no chest pain, minimal elevation of troponin, no EKG changes likely just chronic finding due to CKD stage V (4) CHF (congestive heart failure): Hypertension/CHF- Continue aspirin, bumetanide, metoprolol and potassium chloride stable today, euvolemic (5) Depression: resume Buproprion (6) Diabetes mellitus, type 2: Continue Lantus 8 units subcu at bedtime. Placed on Accu-Cheks before meals and at bedtime with NovoLog coverage per scale monitor for hypoglycemia, no episodes (7) Hypertension: See above (8) Back pain: ongoing issue, chronic had CT lumbar spine last admission that did not show any acute changes no increase in her pain, no injuries continue [place] *Avoid baclofen* (9) GERD (gastroesophageal reflux disease): (10) Anemia: normocytic, 8.9 today, no signs of blood loss likely related to CKD stage V will check iron stores tomorrow, give EPO Admission and Anticipated Discharge Date Admission Date: October 31, 2019 Subjective patient doing well today, ambulating with rolling walker with therapy she feels she is close to full strength but does not feel like she would be safe at home she lives with her elderly and her daughters can stop in but they are not there 21/09 OT recommended SNF level of rehab, PT recommend rehab with 3 hours combined daily she is eating well she has dyspnea on exertion but none at rest, she is using her incentive spirometer all the time reviewed labs, WBC 12, Hb 8.9, Cr 3.66, BUN 81 covid screen negative Review of Systems Review of Systems: All systems reviewed & are unremarkable except as noted in Subjective Constitutional: + fatigue and + weakness; no fever, no chills and no sweats Respiratory: + dyspnea on exertion; no cough and no dyspnea Cardiovascular: no chest pain and no edema Gastrointestinal: no abdominal pain, no nausea, no vomiting, no constipation and no diarrhea/loose stools Physical Exam Constitutional: well developed and + obese; no acute distress Eyes: PERRL, conjunctivae normal, anicteric sclerae ENMT: external ear and nose normal, oropharynx normal Neck: trachea midline, no thyromegaly Respiratory: normal respiratory effort, lungs clear to auscultation Auscultation: + diminished lung sounds (bases) Cardiovascular: RRR, no murmur, no edema Gastrointestinal (Abdomen): normal bowel sounds, soft, nontender, no hepa tosplenomegaly Musculoskeletal: Head/Neck/Chest: normocephalic, head atraumatic and neck supple Spine: + limited thoraco-lumbar ROM Extremities: extremities normal to inspection and + abnormal strength (weakness, generalized) Skin: no rashes, warm and dry Neurologic: CN's II-XI intact bilaterally, deep tendon reflexes 2+ bilaterally, moves all extremities and awake; + abnormal sensation to monofilament (decreased sensation in right foot, lower leg) and no focal motor deficits Psychiatric: A+Ox3, euthymic affect Lymphatic: no cervical or axillary lymphadenopathy Results & Data Results & Data ([facility]) Vital Signs (Past 12 Hours) Vital Signs Temp Pulse Resp BP Pulse Ox 11/02/19 19:35 74 16 95 11/02/19 15:05 36.8 C 81 20 158/81 H 97 11/02/19 14:58 78 18 99 11/02/19 11:11 87 20 97 Laboratory Results Laboratory Results - last 24 hr 11/01/19 11/02/19 11/02/19 20:10 06:07 06:07 WBC 12.44 H RBC 2.86 L Hgb 8.9 L Hct 28.0 L MCV 97.9 MCH 31.1 MCHC 31.8 L RDW Std Deviation 52.3 H RDW Coeff of Michelle 14.9 H Plt Count 292 MPV 10.2 Immature Gran % (Auto) 0.8 Neut % (Auto) 73.6 Lymph % (Auto) 15.7 [place] % (Auto) 7.8 Eos % (Auto) 2.0 Baso % (Auto) 0.1 Neut # (Auto) 9.16 H Lymph # (Auto) 1.95 [place] # (Auto) 0.97 H Eos # (Auto) 0.25 Baso # (Auto) 0.01 Immature Gran # (Auto) 0.10 H Sodium 138 Potassium 3.9 Chloride 103 Carbon Dioxide 24 Anion Gap 11.0 BUN 81 H Creatinine 3.66 H Est Cr Clr Drug Dosing 13.5 Est GFR ( Amer) 12.7 Est GFR (Non-Af Amer) 11.0 BUN/Creatinine Ratio 22.0 H Glucose 117 H POC Glucose 232 H Calcium 9.3 Phosphorus 3.8 Magnesium 2.2 COVID-19 Eval Order SARS-CoV-2, RNA, NAAT 11/02/19 11/02/19 11/02/19 07:27 11:25 16:42 WBC RBC Hgb Hct MCV MCH MCHC RDW Std Deviation RDW Coeff of Michelle Plt Count MPV Immature Gran % (Auto) Neut % (Auto) Lymph % (Auto) [place] % (Auto) Eos % (Auto) Baso % (Auto) Neut # (Auto) Lymph # (Auto) [place] # (Auto) Eos # (Auto) Baso # (Auto) Immature Gran # (Auto) Sodium Potassium Chloride Carbon Dioxide Anion Gap BUN Creatinine Est Cr Clr Drug Dosing Est GFR ( Amer) Est GFR (Non-Af Amer) BUN/Creatinine Ratio Glucose POC Glucose 121 H 113 H 166 H Calcium Phosphorus Magnesium COVID-19 Eval Order SARS-CoV-2, RNA, NAAT 11/02/19 11/02/19 Unknown Unknown WBC RBC Hgb Hct MCV MCH MCHC RDW Std Deviation RDW Coeff of Michelle Plt Count MPV Immature Gran % (Auto) Neut % (Auto) Lymph % (Auto) [place] % (Auto) Eos % (Auto) Baso % (Auto) Neut # (Auto) Lymph # (Auto) [place] # (Auto) Eos # (Auto) Baso # (Auto) Immature Gran # (Auto) Sodium Potassium Chloride Carbon Dioxide Anion Gap BUN Creatinine Est Cr Clr Drug Dosing Est GFR ( Amer) Est GFR (Non-Af Amer) BUN/Creatinine Ratio Glucose POC Glucose Calcium Phosphorus Magnesium COVID-19 Eval Order Covid19 [facility]Now Pending sale to [facility] SARS-CoV-2, RNA, NAAT NEGATIVE Medications Administered Current Inpatient Medications Acetaminophen (Acetaminophen 325 Mg Tab) 650 mg PO Q4H PRN PRN Reason: Pain or Fever Stop: 11/30/19 03:29 Hydrocodone Bitart/Acetaminophen (Hydrocodone/Acetamophen 5/325mg Tab) 1 tab PO Q6H PRN PRN Reason: Moderate Pain Stop: 11/14/19 03:33 Last Admin: 11/02/19 00:16 Dose: 1 tab Documented by: Hydrocodone Bitart/Acetaminophen (Hydrocodone/Acetamophen 5/325mg Tab) 1 tab PO Q6H PRN PRN Reason: Pain Stop: 11/14/19 17:29 Al Hydrox/Mg Hydrox/Simethicone (Aluminum/Magnesium Susp 30 Ml Udc) 15 ml PO Q4H PRN PRN Reason: Dyspepsia Stop: 11/30/19 03:29 Albuterol (Albut/Ipratrop 3mg/0.5mg Neb 3 Ml Vial) 3 ml NEB QIDR JESSICA Stop: 11/30/19 06:59 Last Admin: 11/02/19 19:33 Dose: 3 ml Documented by: Anastrozole (Anastrozole 1 Mg Tab) 1 mg PO QPM JESSICA Stop: 11/30/19 20:59 Last Admin: 11/01/19 20:41 Dose: 1 mg Documented by: Aspirin (Aspirin 81 Mg Ectab) 81 mg PO QPM JESSICA Stop: 11/30/19 20:59 Last Admin: 11/01/19 20:41 Dose: 81 mg Documented by: Brimonidine Tartrate (Brimonidine Tartrate 0.2% 5ml) 1 drops OPB BID JESSICA Stop: 11/30/19 08:59 Last Admin: 11/02/19 07:42 Dose: 1 drops Documented by: Bumetanide (Bumetanide 1 Mg Tab) 3 mg PO BID17 JESSICA Stop: 11/30/19 08:59 Last Admin: 11/02/19 16:58 Dose: 3 mg Documented by: Bupropion HCl (Bupropion Xl 300 Mg Tabcr) 300 mg PO QAM JESSICA Stop: 12/02/19 08:59 Last Admin: 11/02/19 09:08 Dose: 300 mg Documented by: Dextrose (Dextrose 50% 50 Ml Syringe) 25 - 50 ml IV UD PRN; Protocol PRN Reason: Hypoglycemia Protocol Stop: 11/30/19 03:29 Diclofenac Sodium (Diclofenac Sod 1% Gel 100 Gm Tube) 2 gm EXT QID PRN PRN Reason: back pain Stop: 11/30/19 03:29 Last Admin: 11/02/19 02:23 Dose: 2 gm Documented by: Dorzolamide HCl (Dorzolamide Hcl 2% Oph Soln 10 Ml Btl) 1 drops OPR BID JESSICA Stop: 11/30/19 08:59 Last Admin: 11/02/19 07:31 Dose: 1 drops Documented by: Ferrous Sulfate (Ferrous Sulfate 325 Mg Tab) 325 mg PO BID JESSICA Stop: 11/30/19 08:59 Last Admin: 11/02/19 07:28 Dose: 325 mg Documented by: Fluticasone/Vilanterol (Fluticasone/Vilanterol 100/25mcg 14 Puffs/Inhaler) 1 puffs INH DAILY JESSICA; Protocol Stop: 12/02/19 08:59 Last Admin: 11/02/19 09:08 Dose: 1 puffs Documented by: Glucagon (Glucagon For Inj 1 Mg Vial) 1 mg SQ UD PRN; Protocol PRN Reason: Hypoglycemia Protocol Stop: 11/30/19 03:29 Glucose (Glucose 10 Tabs/Tube) 4 - 8 tabs PO UD PRN; Protocol PRN Reason: Hypoglycemia Protocol Stop: 11/30/19 03:29 Glucose (Glucose 40% Gel 15 Gm Tube) 15 - 30 gm PO UD PRN; Protocol PRN Reason: Hypoglycemia Protocol Stop: 11/30/19 03:29 Guaifenesin (Guaifenesin 600 Mg Tabcr) 1,200 mg PO Q12 JESSICA Stop: 11/30/19 08:59 Last Admin: 11/02/19 07:30 Dose: 1,200 mg Documented by: Heparin Sodium (Porcine) (Heparin Sod 5,000 Unit/0.5 Ml Vial) 5,000 units SQ Q12 JESSICA Stop: 11/30/19 08:59 Last Admin: 11/02/19 07:30 Dose: 5,000 units Documented by: Heparin Sodium (Porcine) (Heparin 100 Unit/Ml 5ml Flush) 5 ml FLUSH PRN PRN PRN Reason: Flush Stop: 11/30/19 23:57 Last Admin: 11/02/19 07:52 Dose: 5 ml Documented by: Insulin Aspart (Insulin Aspart 100 Units/Ml 3 Ml Pen) 0 units SC ACHS [facility] Stop: 11/30/19 07:29 Last Admin: 11/02/19 17:21 Dose: 4 units Documented by: Insulin Glargine (Insulin Glargine Solostar 100 Units/Ml 3 Ml Pen) 8 units SQ HS [facility] Stop: 11/30/19 20:59 Last Admin: 11/02/19 08:43 Dose: 8 units Documented by: Magnesium Hydroxide (Magnesium Hydroxide Susp 30 Ml Udc) 30 ml PO Q12H PRN PRN Reason: Constipation Stop: 11/30/19 03:29 Metoprolol Tartrate (Metoprolol Tartrate 25 Mg Tab) 25 mg PO BID [facility] Stop: 12/02/19 08:59 Last Admin: 11/02/19 07:29 Dose: 25 mg Documented by: Miconazole Nitrate (Miconazole Nitrate Powder 43 Gm) 1 appln EXT DAILY PRN PRN Reason: Rash under skin folds Stop: 11/30/19 03:29 Miscellaneous (Carbohydrates For Hypoglycemia ) 15 - 30 gm PO UD PRN PRN Reason: Hypoglycemia Protocol Stop: 11/30/19 03:29 Montelukast Sodium (Montelukast Sodium 10 Mg Tablet) 10 mg PO HS [facility] Stop: 12/02/19 20:59 Multivitamins (Multivitamin Tab) 1 tab PO QAM [facility] Stop: 11/30/19 08:59 Last Admin: 11/02/19 07:30 Dose: 1 tab Documented by: Multivitamins/Minerals (Calcium 600mg + Vit D 400 Iu Tab) 1 tab PO QPM [facility] Stop: 11/30/19 20:59 Last Admin: 11/01/19 20:41 Dose: 1 tab Documented by: Nystatin (Nystatin Powder 15gm Btl) 1 appln EXT Q12 [facility] Stop: 11/30/19 08:59 Last Admin: 11/02/19 07:43 Dose: 1 appln Documented by: Ondansetron HCl (Ondansetron Inj 2 Mg/Ml 2 Ml Vial) 4 mg IV Q6H PRN PRN Reason: Nausea Stop: 11/30/19 03:29 Pantoprazole Sodium (Pantoprazole 40 Mg Tab) 40 mg PO QAM JESSICA Stop: 11/30/19 08:59 Last Admin: 11/02/19 09:08 Dose: 40 mg Documented by: Potassium Chloride (Potassium Chloride 20 Meq Tabcr) 20 meq PO BID [facility] Stop: 11/30/19 08:59 Last Admin: 11/02/19 07:28 Dose: 20 meq Documented by: Prednisone (Prednisone 10 Mg Tablet) 30 mg PO [facility]; Taper Stop: 12/08/19 08:59 Last Admin: 11/02/19 09:08 Dose: 30 mg Documented by: Sodium Bicarbonate (Sodium Bicarbonate 650 Mg Tab) 650 mg PO BID [facility] Stop: 11/30/19 08:59 Last Admin: 11/02/19 07:30 Dose: 650 mg Documented by: Vitamin D (Cholecalciferol 1,000 Units 25 Mcg Tab) [facility] [place]: 11/30/19 08:59 Last Admin: 11/02/19 07:29 Dose: 5,000 units Documented by: PG Care Time/CCT Total # of Minutes Spent Total Time Spent with Patient: Total time spent is greater than 50% in coordination of care (as documented) at patient's floor/unit and/or counseling patient: Coding Level of Care Code 09508 Subseq Hosp Care Lvl 3 Diagnoses Acute on chronic diastolic (congestive) heart failure I50.33 Atelectasis of left lung J98.11 Elevated troponin R79.89 CHF (congestive heart failure) I50.9 Depression F32.9 Diabetes mellitus, type 2 E11.9 Hypertension I10 Back pain M54.9 GERD (gastroesophageal reflux disease) K21.9 Anemia D64.9
[2019-11-02] MEDS ORDERED: MONTELUKAST SODIUM 10 MG TABLET PO SCH (21:00)
[2019-11-02] MEDS: ANASTROZOLE 1 MG TAB PO SCH (21:53)
[2019-11-02] MEDS: ASPIRIN 81 MG ECTAB PO SCH (21:55)
[2019-11-02] MEDS: CALCIUM 600MG + VIT D 400 IU TAB PO SCH (21:56)
[2019-11-03] MEDS: HYDROCODONE/ACETAMOPHEN 5/325MG TAB PO PRN ×2 (00:33→14:49)
[2019-11-03] MEDS: DICLOFENAC SOD 1% GEL 100 GM TUBE EXT PRN ×2 (00:34→08:56)
[2019-11-03] MEDS: HEPARIN 100 UNIT/ML 5ML FLUSH FLUSH PRN ×3 (05:44→14:12)
--- NOTE | 2019-11-03 05:57 | Electrocardiogram Report ---
Test Reason : Blood Pressure : / mmHG Vent. Rate : 081 BPM Atrial Rate : 081 BPM P-R Int : 194 ms QRS Dur : 102 ms QT Int : 368 ms P-R-T Axes : 049 039 210 degrees QTc Int : 427 ms Normal sinus rhythm Possible Anterior infarct (cited on or before 14-OCT-2019) Abnormal ECG When compared with ECG of 30-OCT-2019 22:46, ST now depressed in Inferior leads T wave inversion now evident in Inferior leads Confirmed by Kin Stafford ([id number]) on 11/03/2019 5:56:56 AM [facility] Confirmed By:Kin Stafford
[2019-11-03 06:08] LABS: Basophils # (auto) 0.01 K/uL (0-0.2); Basophils % (auto) 0.1 %; Eosinophils # (auto) 0.18 K/uL (0-0.5); Eosinophils % (auto) 1.5 %; Hemoglobin 9.1 g/dL (12.0-16.0); Immature Granulocytes # (auto) 0.07 K/uL (0.00-0.02); Immature Granulocytes % (auto) 0.6 %; Lymphocytes % (auto) 13.4 %; Mean Corpuscular Hemoglobin 30.8 pg (25-34); Mean Corpuscular Hgb Conc 31.4 g/dL (32-36); Mean Corpuscular Volume 98.3 fL (80-100); Mean Platelet Volume 10.2 fL (7.4-10.4); Monocytes % (auto) 8.4 %; Neutrophils # (auto) 9.05 K/uL (1.4-6.5); Platelet Count 278 K/uL (130-400); RDW Coefficient of Variation 14.6 % (11.5-14.5); RDW Standard Deviation 52.3 fL (36.4-46.3); Red Blood Count 2.95 M/uL (4.2-5.4); White Blood Count 11.91 K/uL (4.8-10.8)
--- NOTE | 2019-11-03 06:41 | Electrocardiogram Report ---
Test Reason : Blood Pressure : / mmHG Vent. Rate : 084 BPM Atrial Rate : 084 BPM P-R Int : 188 ms QRS Dur : 094 ms QT Int : 354 ms P-R-T Axes : 047 018 183 degrees QTc Int : 418 ms Poor data quality, interpretation may be adversely affected Normal sinus rhythm Anterior infarct (cited on or before 14-OCT-2019) Abnormal ECG When compared with ECG of 01-NOV-2019 07:15, No significant change Confirmed by Kin Stafford ([id number]) on 11/03/2019 6:40:38 AM Referred By: Gonzales [facility] Confirmed By:Kin Stafford
[2019-11-03 06:44] LABS: BUN Creatinine Ratio 22.8 (10-20); Calcium 9.3 mg/dl (8.5-10.1); Est GFR (African American) 13.3; Est GFR (Non-African American) 11.5
[2019-11-03 06:49] LABS: Ferritin 21.5 ng/ml (8-388)
[2019-11-03] MEDS: ALBUT/IPRATROP 3MG/0.5MG NEB 3 ML VIAL NEB SCH ×2 (07:01→11:13)
[2019-11-03] MEDS ORDERED: EPOETIN ALFA 20,000 UNITS/ML VIAL SQ ONE (07:48)
[2019-11-03] MEDS ORDERED: IRON SUCROSE 200 MG in 0.9 % SODIUM CHLORIDE 100 ML IV ONE (08:15)
[2019-11-03 08:40] LABS: Folate (Folic Acid) 8.26 ng/ml (>5.38)
[2019-11-03] MEDS: CHOLECALCIFEROL 1,000 UNITS 25 MCG TAB PO SCH (08:53)
[2019-11-03] MEDS: FERROUS SULFATE 325 MG TAB PO SCH (08:53)
[2019-11-03] MEDS: BuPROPion XL 300 MG TABCR PO SCH (08:53)
[2019-11-03] MEDS: BUMETANIDE 1 MG TAB PO SCH (08:53)
[2019-11-03] MEDS: predniSONE 10 MG TABLET PO SCH (08:54)
[2019-11-03] MEDS: guaiFENesin 600 MG TABCR PO SCH (08:54)
[2019-11-03] MEDS: METOPROLOL TARTRATE 25 MG TAB PO SCH (08:54)
[2019-11-03] MEDS: PANTOprazole 40 MG TAB PO SCH (08:54)
[2019-11-03] MEDS: MULTIVITAMIN TAB PO SCH (08:55)
[2019-11-03] MEDS: SODIUM BICARBONATE 650 MG TAB PO SCH (08:55)
[2019-11-03] MEDS: POTASSIUM CHLORIDE 20 MEQ TABCR PO SCH (08:55)
[2019-11-03] MEDS: DORZOLAMIDE HCL 2% OPH SOLN 10 ML BTL OPR SCH (08:56)
[2019-11-03] MEDS: FLUTICASONE/VILANTEROL 100/25MCG 14 PUFFS/INHALER INH SCH (08:56)
[2019-11-03] MEDS: NYSTATIN POWDER 15GM BTL EXT SCH (08:57)
[2019-11-03] MEDS: BRIMONIDINE TARTRATE 0.2% 5ML OPB SCH (08:57)
[2019-11-03] MEDS: INSULIN ASPART 100 UNITS/ML 3 ML PEN SC SCH ×2 (09:04→12:55)
[2019-11-03] MEDS: HEPARIN SOD 5,000 UNIT/0.5 ML VIAL SQ SCH (11:25)
--- NOTE | 2019-11-03 16:07 | Discharge Summary ---
Date of Service November 03, 2019 Admission HPI Per Admitting Provider The patient is an 79-year-old female with a past medical history including hypertensive urgency, asthma, CHF, depression, history of CVA, protein S deficiency, history of DVT, parastomal hernia, breast cancer, GERD, hyperlipidemia, rheumatoid arthritis, ulcerative colitis, diabetes mellitus type 2, chronic kidney disease and hypertension. She was most recently admitted to [facility] from 10/12-10/25. She reports that she had been feeling well until earlier in the day today, when she began to have difficulty breathing. Principal Diagnosis Acute on chronic diastolic heart failure Discharge Exam Constitutional well developed and + obese; no acute distress Eyes PERRL, conjunctivae normal, anicteric sclerae ENMT external ear and nose normal, oropharynx normal Neck trachea midline, no thyromegaly Respiratory normal respiratory effort, lungs clear to auscultation Auscultation: + diminished lung sounds (bases) Cardiovascular RRR, no murmur, no edema Gastrointestinal (Abdomen) normal bowel sounds, soft, nontender, no hepatosplenomegaly Musculoskeletal Head/Neck/Chest: normocephalic, head atraumatic and neck supple Spine: + limited thoraco-lumbar ROM Extremities: extremities normal to inspection and + abnormal strength (weakness, generalized) Skin no rashes, warm and dry Neurologic CN's II-XI intact bilaterally, deep tendon reflexes 2+ bilaterally, moves all extremities and awake; + abnormal sensation to monofilament (decreased sensation in right foot, lower leg) and no focal motor deficits Psychiatric A+Ox3, euthymic affect Lymphatic no cervical or axillary lymphadenopathy Discharge Data Allergies Allergy/AdvReac Type Severity Reaction Status Date / Time Bactrim Allergy Severe dizzy,dyseq Verified 10/26/17 14:59 uilibrium bee venom protein (honey bee) Allergy Severe ANAPHYLAXIS Verified 10/31/19 01:59 cefaclor Allergy Severe stiff and Verified 10/31/19 01:59 sore muscles-PT DENIES lisinopril Allergy Severe tongue Verified 10/31/19 01:59 swelling diltiazem Allergy Intermediate rash Verified 10/31/19 01:59 Penicillins Allergy Mild RASH Verified 10/31/19 01:59 tetracycline Allergy Mild UNK-PT Verified 10/31/19 01:59 DENIES amoxicillin Allergy Unknown RASH Verified 10/31/19 01:59 cefuroxime Allergy Unknown TAST Verified 10/31/19 01:59 clavulanic acid Allergy Unknown ITCHING Verified 10/31/19 01:59 levofloxacin Allergy Unknown NAUSEA, Verified 10/31/19 01:59 DIZZINESS baclofen AdvReac Severe Severe Verified 10/31/19 01:59 sedation alendronate sodium AdvReac Intermediate FELT SICK Verified 10/31/19 01:59 Cipro AdvReac Intermediate LEGS ARMS Verified 10/26/17 14:59 STIFF, PAINFUL ciprofloxacin AdvReac Intermediate LEGS ARMS Verified 10/31/19 01:59 STIFF, PAINFUL doxycycline AdvReac Intermediate nausea and Verified 10/31/19 01:59 vomiting metformin AdvReac Intermediate CAUSED Verified 10/31/19 01:59 BACK PAIN [employer]. LACTIC ACID LEVELS tramadol AdvReac Intermediate DIZZINESS Verified 10/31/19 01:59 adhesive AdvReac Mild redness Verified 10/31/19 01:59 mercaptopurine AdvReac Mild MADE HER Verified 10/31/19 01:59 VERY ILL olmesartan AdvReac Mild HEADACHE Verified 10/31/19 01:59 Sulfa (Sulfonamide AdvReac Mild CAUSED Verified 10/31/19 01:59 Antibiotics) DIZZINESS sulfamethoxazole AdvReac Mild CAUSED Verified 10/31/19 01:59 DIZZINESS trimethoprim AdvReac Mild BACTRIM Verified 10/31/19 01:59 CAUSED DIZZINESS aspirin AdvReac Unknown CAUSES Verified 10/31/19 01:59 BRUISING Consultations 10/31/19 01:25 ED Decision to Admit Stat 10/31/19 03:30 Consult Case Management - Discharge Planning Routine Hospital Course (1) Acute on chronic diastolic (congestive) heart failure: initial CXR with increased pulmonary congestion treated with Bumex 3mg PO BID repeat CXR 10/31 with less congestion breathing room air, no distress continue to use incentive spirometer, she is working hard with this she should have daily weights at rehab check BMP twice a week (2) Atelectasis of left lung: CXR with left lower lobe atelectasis encourage incentive spirometer use, she is using several times an hour she is sitting up in the chair as often as possible initially suspected to have pneumonia, her WBC was high at 15k however, she had no fever, her wheezing was just compensatory with her COPD and her procalcitonin was normal stopped antibiotics on 10/30 no fever for three days, WBC is 11k with only 70% PMN will continue to encourage deep breathing, observe for any clinical signs of pneumonia but there have been none patient noted to occasionally wheeze, more of a compensatory mechanism with her asthma / COPD (3) Chronic kidney disease, stage V: patient has been stable for two weeks now on Bumex 3mg PO BID helping her to make urine, electrolytes are acceptable she follows with Dr. Reyes patient does NOT want dialysis, ever discussed on day of discharge that she is listed as full code explained that her kidneys are so advanced, that if she would code her remaining renal function would be lost even if we brought back circulation, she would require HD to keep her alive she said that she does not want that at all she was changed to DNR called her daughter to explain our conversation, she supports her mother's decision (4) Elevated troponin: no chest pain, minimal elevation of troponin, no EKG changes likely just chronic finding due to CKD stage V (5) CHF (congestive heart failure): Hypertension/CHF- Continue aspirin, bumetanide, metoprolol and potassium chloride stable today, euvolemic (6) Depression: resume Buproprion (7) Diabetes mellitus, type 2: Continue Lantus 8 units subcu at bedtime. Placed on Accu-Cheks before meals and at bedtime with NovoLog coverage per scale monitor for hypoglycemia, no episodes (8) Hypertension: See above (9) Back pain: ongoing issue, chronic had CT lumbar spine last admission that did not show any acute changes no increase in her pain, no injuries continue Spearman *Avoid baclofen* (10) GERD (gastroesophageal reflux disease): (11) Anemia: normocytic, 8.9 today, no signs of blood loss likely related to CKD stage V ferritin low normal at 20, gave a dose of Venofer today gave EPO 20,000 units today as well likely anemia of chronic disease, anemia of CKD stage V follow up with Dr. Reyes Total Time Total Time Spent Total Time Spent (In Minutes): 50 Total Time Includes: Examination of the Patient, Discharge Planning, Medication Reconciliation, Communication With Other Providers (20 minutes total on phone with insurance company, manager medical affairs for peer to peer) and Other (10 minute conversation with her daughter) Discharge Plan Discharge Items Patient Disposition: Transfer Inpatient Rehab Fac Reason For Visit: Dyspnea, acute diastolic heart failure Discharge Diagnosis: Acute diastolic heart failure Atelectasis CKD stage V Deconditioning Anemia, normocytic Condition on Discharge: Good Goals: improve strength and mobility daily weights check BMP twice a week Activity: Resume your previous activity Weightbearing: Full weightbearing Non-emergency contact: Primary Care Provider and Validation Scientist Call non-emergency contact if: you have any medication questions Follow-up/Referrals: Shant Reyes MD [Physician] - [facility]-3 weeks[facility] [Non-Staff] - (this week) Diet: Carb Consistent or DM2 and Heart Healthy Addtl Attending Provider Instructions: Medications: - METOPROLOL: increased from 12.5mg to 25mg twice a day for better blood pressure control, working Acute on chronic diastolic heart failure: resolved, continue Bumex 3mg BID need to check daily weights on patient to make sure she is not gaining weight recommend checking BMP twice a week while there, Wednesday/ CXR showed some pulmonary congestion as well as atelectasis on the left initially thought to have pneumonia, but no fever, no cough and her procalcitonin was normal breathing has improved with incentive spirometery occasionally she will have auditory wheezing from her asthma/COPD continue inhalers CKD stage V baseline Cr is 3.5 to 4.0 continue Bumex 3mg PO BID, has been working well recommend follow up with Dr. Reyes, her seating captain, in a few weeks Anemia: ferritin is low normal at 20, gave her a dose of Venofer while here and EPO 20,000 B12 and folate normal, no evidence of bleeding Hb is stable in the 9 range could consider scheduled EPO doses but would defer to Dr. Reyes already on ferrous sulfate BID Pending Studies at Discharge: No Stand-Alone Forms: My [facility] Skilled Items Patient informed of condition?: Yes DNR: Yes Discharge Level of Care: Acute rehab Communicable Disease: No Discharge Prognosis: Improving Lines: None Urinary Catheter: No Medications and DC Order Prescriptions: New metoprolol tartrate 25 mg Tablet 25 mg PO BID 30 Days Qty: 60 RF: 1 Continued albuterol sulfate [Ventolin HFA] 90 mcg/actuation HFA aerosol inhaler 2 - 4 puff INHALATION QID PRN (Reason: Shortness Of Breath Or Wheezing) Qty: 3 RF: 3 Symbicort 80-4.5 mcg/actuation HFA aerosol inhaler 2 puff INHALATION BID Qty: 3 RF: 3 zafirlukast [Accolate] 20 mg tablet 20 mg PO Q12H Qty: 180 RF: 3 bupropion HCl 300 mg tablet extended release 24 hr 300 mg PO QAM RF: 0 sodium bicarbonate 650 mg tablet 650 mg PO BID RF: 0 brimonidine 0.2 % drops 1 drp OPB BID RF: 0 dorzolamide 2 % drops 1 drp OPR BID RF: 0 ferrous sulfate 325 mg (65 mg iron) Tablet 325 mg PO BID Qty: 0 RF: 0 anastrozole 1 mg Tablet 1 mg PO QPM RF: 0 aspirin [Aspirin Low Dose] 81 mg Tablet,Delayed Release (Dr/Ec) 81 mg PO QPM RF: 0 multivitamin with minerals Tablet 1 tab PO QAM RF: 0 cholecalciferol (vitamin D3) 5,000 unit Capsule 5,000 unit PO QAM RF: 0 calcium carbonate-vitamin D3 [Os-Conrad 500 + D3] 500 mg(1,250mg) -200 unit Tablet 1 tab PO QPM RF: 0 Lantus Solostar U-100 Insulin 100 unit/mL (3 mL) Insulin Pen 8 unit SUBCUT HS RF: 0 prednisone 5 mg Tablet 5 mg PO QAM RF: 0 pantoprazole 40 mg Tablet,Delayed Release (Dr/Ec) 40 mg PO QAM RF: 0 acetaminophen [Tylenol Extra Strength] 500 mg Tablet 500 mg PO Q6H PRN (Reason: Pain) RF: 0 diclofenac sodium [Voltaren] 1 % Gel 2 g EXT QID PRN (Reason: back pain) Qty: 100 RF: 0 guaifenesin [Mucinex] 600 mg Tablet Extended Release 12hr 1,200 mg PO Q12 Qty: 30 RF: 0 Desenex 2 % Powder 1 applic EXT PRN PRN (Reason: Rash under skin folds) Qty: 43 RF: 0 ipratropium-albuterol 0.5 mg-3 mg(2.5 mg base)/3 mL Solution For Nebulization 3 ml NEB QIDR PRN (Reason: shortness of breath or wheezing) Qty: 15 RF: 0 hydrocodone-acetaminophen [Spearman] 5-325 mg Tablet 1 tab PO Q6H PRN (Reason: pain) Qty: 7 RF: 0 bumetanide 1 mg Tablet 3 mg PO BID17 Qty: 180 RF: 0 prednisone 20 mg Tablet 40 mg PO QAM Qty: 10 RF: 0 potassium chloride [Klor-Con M20] 20 mEq Tablet,Er Particles/Crystals 20 meq PO BID Qty: 60 RF: 0 nystatin [Nystop] 100,000 unit/gram Powder 1 applic EXT Q12 Qty: 15 RF: 0 Discontinued metoprolol tartrate 25 mg Tablet 12.5 mg PO BID RF: 0 Discharge Orders: Discharge Order (Routine); Ordered 11/03/19 Ordered By: Ottoniel Chun Admission Data Admit Date/Time: 10/31/19 02:33 Attending Provider: Ottoniel Chun Admit Provider: Sam Cortez Primary Care Provider: Gonzales Sauceda Hazard [facility] ; Anand Blue ; Sam Cortez Other Interventions: Discharge Summary Assessment (RN) Last Done: 11/03/19 12:02 Coding Level of Care Code D/C Day Management >30 mins Diagnoses Acute on chronic diastolic (congestive) heart failure I50.33 Atelectasis of left lung J98.11 Chronic kidney disease, stage V N18.5 Elevated troponin R79.89 CHF (congestive heart failure) I50.9 Depression F32.9 Diabetes mellitus, type 2 E11.9 Hypertension I10 Back pain M54.9 GERD (gastroesophageal reflux disease) K21.9 Anemia D64.9
--- NOTE | 2019-11-08 11:01 | Coding Query ---
CODING QUERY To promote full compliance with coding requirements relating to patient care, provider participation is requested in all cases of automotive service director uncertainty. Please assist us with the question(s) below: Coding Question(s): The Discharge Summary documents, regarding Pneumonia, " initially suspected to have pneumonia, her WBC was high at 15k however, she had no fever, her wheezing was just compensatory with her COPD and her procalcitonin was normal stopped antibiotics on 10/30 no fever for three days, WBC is 11k with only 70% PMN will continue to encourage deep breathing, observe for any clinical signs of pneumonia but there have been none". Please clarify below, in your clinical opinion. ( ) Possible Pneumonia was treated during this admission ( x ) Pneumonia is Ruled-Out ( ) Other: Please Specify Physician's Response(s): Thank you Barbara Miller Principal Diagnosis: "that condition established after study, to be chiefly responsible for occasioning the admission of the patient to the hospital for care." Co-Existing Principal Diagnosis: "when two or more diagnoses equally meet the criteria for principal diagnosis as determined by the circumstances of admission, diagnostic work up, and/or therapy provided, and the Alphabetic Index, Tabular List, or another coding guideline does not provide sequencing direction, any one of the diagnoses may be sequenced first." "When the physician has documented what appears to be a current diagnosis in the body of the record, but has not included the diagnosis in the final diagnostic statement, the physician should be asked whether the diagnosis should be added." (Source Coding Clinic 2 QTR90. p3-4) VIDA
== END 2019-11-03 16:00 | DRG 291 ==
LOC: ED 21:05 → SUATTDRO 10-31 02:33 → 2S 10-31 02:33 → 2N 11-01 12:02

== ENCOUNTER 2020-06-26 10:43 | Inpatient (IN) ==
[2020-06-26 11:53] LABS: Basophils # (auto) 0.04 K/uL (0-0.2); Basophils % (auto) 0.4 %; Eosinophils # (auto) 0.11 K/uL (0-0.5); Hematocrit (blood only) 36.9 % (37-47); Hemoglobin 12.2 g/dL (12.0-16.0); Immature Granulocytes # (auto) 0.01 K/uL (0.00-0.02); Immature Granulocytes % (auto) 0.1 %; Lymphocytes # (auto) 1.08 K/uL (1.2-3.4); Lymphocytes % (auto) 10.3 %; Mean Corpuscular Hemoglobin 31.7 pg (25-34); Mean Corpuscular Hgb Conc 33.1 g/dL (32-36); Mean Corpuscular Volume 95.8 fL (80-100); Mean Platelet Volume 10.9 fL (7.4-10.4); Monocytes # (auto) 0.49 K/uL (0.11-0.59); Monocytes % (auto) 4.7 %; Neutrophils # (auto) 8.79 K/uL (1.4-6.5); Neutrophils % (auto) 83.5 %; Platelet Count 176 K/uL (130-400); RDW Coefficient of Variation 14.1 % (11.5-14.5); RDW Standard Deviation 49.6 fL (36.4-46.3); Red Blood Count 3.85 M/uL (4.2-5.4); White Blood Count 10.52 K/uL (4.8-10.8)
[2020-06-26 12:00] LABS: Albumin Level 3.2 gm/dl (3.4-5.0); BUN Creatinine Ratio 13.8 (10-20); Calcium 9.9 mg/dl (8.5-10.1); Est GFR (African American) 11.9; Est GFR (Non-African American) 10.2; Magnesium 2.1 mg/dl (1.8-2.4); Potassium 3.5 mmol/L (3.5-5.1)
[2020-06-26 12:06] LABS: Albumin Globulin Ratio 1.1 (0.9-2); Bilirubin,Total 0.4 mg/dl (0.2-1); Total Protein 6.2 gm/dl (6.4-8.2); Troponin I 0.043 ng/ml (0-0.045)
[2020-06-26 12:09] LABS: Partial Thromboplastin Ratio 0.8; Partial Thromboplastin Time 21.4 Seconds (21.0-31.0); Prothrombin Time 9.8 Seconds (9.0-12.0)
[2020-06-26] MEDS ORDERED: LEVALBUTEROL HCL 1.25 MG/3 ML NEB NEB STA ×2 (12:10→13:25)
[2020-06-26] MEDS ORDERED: MAGNESIUM SULFATE / D5W 1 GM/100 ML BAG IV STA (12:11)
[2020-06-26] MEDS ORDERED: SODIUM CHLORIDE 0.9% 1000ML 500 ML IV ONE (12:11)
[2020-06-26] MEDS ORDERED: methylPREDNISolone 125 MG/2 ML VIAL IV STA (13:25)
--- NOTE | 2020-06-26 13:42 | CT Scan Report ---
CT chest diagnostic wo con CT DOSE: 1166.01 mGy.cm CLINICAL HISTORY: 80 years-old Female with Pt c/o Rt sided back pain. Acute chest with right-sided b ack pain TECHNIQUE: Multiaxial CT images of the chest were performed without contrast. A dose lowering techni que was utilized adhering to the principles of ALARA. COMPARISON: CT abdomen and pelvis of same day, chest CT 04/30/2020 FINDINGS: Thyroid goiter. Unchanged mediastinal adenopathy with paratracheal lymph nodes again seen m easuring up to 1.3 cm in short axis. Moderate cardiomegaly with moderate to extensive coronary artery calcifications. No pericardial effusion. No thoracic aortic aneurysm right IJ Emyyoy-x-Hbjo catheter distal tip terminates within the mid SVC. Small right with loculated small to moderate left pleural effusions are similar to slightly decreased in size from comparison. Intralobular septal thickening. There are new bibasilar predominant groundglass and reticular nodular opacities. Dependent consolidat ion suggests atelectasis. Bronchial wall thickening suggestive of bronchitis. Tracheobronchial secret ions with bibasilar mucous plugging. Subsegmental millimeter nodule of the right lung apex, image 45 is unchanged. There are a few scattered calcified pulmonary granulomata. No pneumoperitoneum. No acute process of the imaged upper abdomen. Chronic scarring with calcificatio ns of the left breast is unchanged 4.0 cm masslike area of soft tissue thickening. Degenerative wills es of the shoulders and spine. 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 IMPRESSION: 1. Cardiomegaly with pulmonary edema and left greater than right pleural effusions. 2. New bibasilar predominate groundglass and reticulonodular opacities are compatible with an infecti ous or inflammatory process. Tracheobronchial secretions with bibasilar mucous plugging. Correlate cl inically to exclude aspiration pneumonitis. 3. Unchanged mild mediastinal adenopathy. 4. Stable 9 mm subsolid nodule of the right lung apex. 5. Additional findings as above. Please refer to below summary of Fleischner criteria recommendations for follow-up of incidental CT n odules (Katarina Wu, Guidelines for management of small pulmonary nodules detected on CT scans: A sta tement from the Fleischner Society, Radiology 237: [phone].) SUBSOLID NODULES Solitary pure ground-glass nodule * nodule size <6 mm - no CT follow-up required * nodule size >=6 mm - follow-up CT at 6-12 months, then every 2 years until 5 years Solitary part-solid nodule * nodule size <6 mm - no CT follow-up required * nodule size >=6 mm - follow-up CT at 3-6 months. If unchanged, and solid component remains <6 mm, then annual follow-up for 5 years Multiple subsolid nodules * nodule size <6 mm - follow-up CT at 3-6 months, consider further follow-up at 2 and 4 years if sta ble * nodule size >=6 mm - follow-up CT at 3-6 months, subsequent management based on the most suspiciou s nodule(s) The above report was generated using voice recognition software. It may contain grammatical, syntax o r spelling errors. ACT 112: Negative or not required by law. Electronically signed by: Rodolfo Cavanaugh M.D. 06/26/2020 1:40 PM
--- NOTE | 2020-06-26 13:43 | CT Scan Report ---
CT SCAN OF THE ABDOMEN AND PELVIS WITHOUT CONTRAST CLINICAL HISTORY: Diffuse abdominal pain. Vomiting. History of bowel obstruction. COMPARISON STUDY: 07/23/2019 TECHNIQUE: CT scan of the abdomen and pelvis was performed from the lung bases to the proximal femurs . Images are reviewed in the axial, sagittal, and coronal planes. IV contrast was not administered fo r this examination. A dose lowering technique was utilized adhering to the principles of ALARA. CT DOSE: FINDINGS: Lower chest: There is a right-sided A-Port catheter. There is septal edema. There is a small left ple ural effusion and trace right pleural effusion. There are basilar atelectatic changes. Liver: The unenhanced liver is normal in size, contour, and attenuation. There is no intrahepatic marnie iary ductal dilatation. Gallbladder: Unremarkable. Spleen: Normal in size and attenuation. Pancreas: Atrophic Adrenal glands: Unremarkable. Kidneys: No renal, ureteral, or bladder calculi are visualized. Bowel: There are postsurgical changes of a prior colectomy. There is a right lower quadrant ileostomy . There is a right parastomal hernia. There are mildly dilated small bowel loops with multiple air-fl uid levels. The distal small bowel is of normal caliber. The findings are suggestive of an early or p artial small bowel obstruction. The site of obstruction may be at the level of the parastomal hernia. Peritoneum: There is no intraperitoneal free air or abdominal ascites. Vasculature: The abdominal aorta is normal in course and caliber. Adenopathy: None. Pelvic viscera: The bladder, and pelvic viscera are unremarkable. Skeletal structures: No destructive osseous lesions are seen. IMPRESSION: 1. Postsurgical changes of a colectomy with a right lower quadrant ileostomy 2. Right lower quadrant parastomal hernia 3. Mildly dilated fluid-filled small bowel loops with normal caliber distal small bowel. The findings are suggestive of an early/partial small bowel obstruction with a suspected transition zone near the level of the parastomal hernia. 4. Small left pleural effusion and trace right pleural effusion. Septal edema. ACT 112: Negative or not required by law. Electronically signed by: Thai Kohli M.D. 06/26/2020 1:42 PM
[2020-06-26] MEDS ORDERED: cefTRIAXone SODIUM 2,000 MG/70 ML BAG IV STA (14:03)
--- NOTE | 2020-06-26 14:30 | History & Physical Report ---
Date of Service June 26, 2020 Assessment & Plan (1) Partial small bowel obstruction: Similar episode in June 2019 resolved with conservative management Given ileostomy now appears to be working and need to avoid IV fluids with volume overload and CKD will start on clear liquids. Consult general surgery (2) Aspiration pneumonia: Pneumonitis vs. pneumonia. Procalcitonin negative Will continue IV ceftriaxone for short 5 day course. Add metronidazole if not improving. (3) Hypoxia: Suspect secondary to aspiration when vomiting +/- pulmonary edema / pleural effusions from CKD Incentive spirometry Flutter valve Consider steroids if not improving mucus plugging. Antibiotics as above (4) Volume overload: Patient reports close to her baseline. Stop IV fluids. Clear liquids as above. Will continue on usual diuretics while oral intake is not known but may require IV diuretics during admission to help with hypoxia. (5) Rheumatoid arthritis: Continue prednisone 5mg PO daily. No wheezing to indicate need for continued steroids at this time. (6) H/O ileostomy: Noted. Obstruction now appears to have resolved (7) Parastomal hernia: Likely cause of partial SBO as above (8) Diabetes mellitus, type 2: HbA1C 6.0 in April. On no home medication for this. Monitor glucose with AM labs. (9) Ulcerative colitis: (10) Hypertension: Continue her usual medications with metoprolol tartrate 25,g PO BID (11) Asthma: No acute exacerbation Continue her usual Anoro Ellipta or hospital formulary equivalent Continue montelukast 10 mg p.o. at bedtime (12) Chronic kidney disease, stage V: At baseline. Monitor fluid status with strict I's and O's. Continue sodium bicarbonate 650 mg p.o. daily Admission and Anticipated Discharge Date Admission Date: June 26, 2020 History of Present Illness Chief Complaint: Abdominal pain or shortness of breath Primary Care Provider: Se Tovar MD Florencia Elise is an 80 year old female who presents to the ER with epigastric pain and shortness of breath. She reports increasing epigastric pain and pain around her ileostomy site over the last 24 hours. Associated nausea and vomiting. Previous episode of small bowel obstruction in June 2019 which was treated conservatively and related to her parastomal hernia. Initially the pain around the ileostomy site was cramping and high output decreased however she reports significant relief in her pain after ostomy began to have a normal output while in the emergency room. Pain is currently mild and she is not taking any medication for her pain. She does note taking occasional hydrocodone chronically for her back pain. She also notes she is more short of breath than usual since vomiting. No chest pain. No increased weight or increased leg swelling. No palpitations, claudication, orthopnea or PND. In the ER CT abdomen pelvis was concerning for partial small bowel obstruction, CT chest was concerning for possible tracheobronchial mucous plugging and possible pneumonia. Procalcitonin negative, neutrophils elevated at 8.79. She was given 1 dose of IV ceftriaxone for pneumonia. She does not usually wear oxygen at home and has been hypoxic in the emergency room requiring 2 L of oxygen at rest. She was referred to medicine for admission ongoing management of aspiration pneumonia and hypoxia. Allergies Allergy/AdvReac Type Severity Reaction Status Date / Time bee venom protein (honey bee) Allergy Severe ANAPHYLAXIS Verified 06/24/20 14:17 cefaclor Allergy Severe stiff and Verified 06/24/20 14:17 sore muscles-PT DENIES lisinopril Allergy Severe tongue Verified 06/24/20 14:17 swelling diltiazem Allergy Intermediate rash Verified 06/24/20 14:17 Penicillins Allergy Mild RASH Verified 06/24/20 14:17 tetracycline Allergy Mild UNK-PT Verified 06/24/20 14:17 DENIES amoxicillin Allergy Unknown RASH Verified 06/24/20 14:17 cefuroxime Allergy Unknown TAST Verified 06/24/20 14:17 clavulanic acid Allergy Unknown ITCHING Verified 06/24/20 14:17 levofloxacin Allergy Unknown NAUSEA, Verified 06/24/20 14:17 DIZZINESS baclofen AdvReac Severe Severe Verified 06/24/20 14:17 sedation alendronate sodium AdvReac Intermediate FELT SICK Verified 06/24/20 14:17 ciprofloxacin AdvReac Intermediate LEGS ARMS Verified 06/24/20 14:17 STIFF, PAINFUL metformin AdvReac Intermediate CAUSED Verified 06/24/20 14:17 BACK [employer]IN [employer]. LACTIC ACID LEVELS tramadol AdvReac Intermediate DIZZINESS Verified 06/24/20 14:17 adhesive AdvReac Mild redness Verified 06/24/20 14:17 mercaptopurine AdvReac Mild MADE HER Verified 06/24/20 14:17 VERY ILL olmesartan AdvReac Mild HEADACHE Verified 06/24/20 14:17 Sulfa (Sulfonamide AdvReac Mild CAUSED Verified 06/24/20 14:17 Antibiotics) DIZZINESS sulfamethoxazole AdvReac Mild CAUSED Verified 06/24/20 14:17 DIZZINESS trimethoprim AdvReac Mild BACTRIM Verified 06/24/20 14:17 CAUSED DIZZINESS aspirin AdvReac Unknown CAUSES Verified 06/24/20 14:17 BRUISING Home Medications Medication Instructions Recorded Confirmed Type aspirin [Aspirin Low Dose] 81 mg PO QPM 11/22/17 06/26/20 History multivitamin with minerals 1 tab PO QAM 11/22/17 06/26/20 History pantoprazole 40 mg PO QAM 11/22/17 06/26/20 History prednisone 5 mg PO QAM 11/22/17 06/26/20 History brimonidine 1 drp OPB BID 06/22/18 06/26/20 History dorzolamide 1 drp OPR BID 06/22/18 06/26/20 History albuterol sulfate 90 mcg/actuation 2 - 4 puff INHALATION QID PRN #3 02/15/19 06/26/20 Rx aerosol inhaler inhaler acetaminophen [Tylenol Extra 500 mg PO Q6H PRN 08/25/19 06/26/20 History Strength] Desenex 1 applic EXT PRN PRN #43 gm 08/31/19 06/26/20 Rx diclofenac sodium [Voltaren] 2 g EXT QID PRN #100 gm 08/31/19 06/26/20 Rx sodium bicarbonate 650 mg tablet 650 mg PO DAILY #60 tab 01/12/20 06/26/20 Rx nystatin [Nystop] 1 applic EXT Q12 PRN 03/01/20 06/26/20 History bupropion HCl 200 mg PO BID 04/29/20 06/26/20 History hydrocodone-acetaminophen 1 tab PO DIRECTED PRN 04/29/20 06/26/20 History melatonin 6 mg PO HS 04/29/20 06/26/20 History anastrozole 1 mg PO QPM #0 tab 05/07/20 06/26/20 Rx ferrous sulfate 325 mg PO BID #0 tab 05/07/20 06/26/20 Rx guaifenesin [Mucinex] 600 mg PO Q12 #0 tab 05/07/20 06/26/20 Rx metoprolol tartrate 25 mg PO BID #0 tab 05/07/20 06/26/20 Rx montelukast [Singulair] 10 mg PO HS #0 tab 05/07/20 06/26/20 Rx umeclidinium-vilanterol [Anoro 1 puff INHALATION DAILY #0 ea 05/07/20 06/26/20 Rx Ellipta] zafirlukast 20 mg tablet 20 mg PO Q12H #180 tab 06/17/20 06/26/20 Rx bumetanide 1 mg tablet 1 mg PO DAILY tab 06/24/20 06/26/20 History Past Med/Surg History Medical History Acute osteomyelitis (06/05/01) "MRSA of the thoracic spine " On 02/05/12 10:49 Wilfredo Melendez wrote "MRSA of the thoracic spine " Asthma Bilateral interstitial pneumonia Calcified granuloma of lung CHF (congestive heart failure) Chronic back pain Chronic kidney disease, stage V CKD (chronic kidney disease) COPD (chronic obstructive pulmonary disease) Deep vein thrombosis L LEG Dyspnea Elevated troponin Fibromyalgia GERD (gastroesophageal reflux disease) Glaucoma BILT EYES Hypercalcemia Hyperglycemia due to diabetes mellitus Hyperlipidemia Hypertension Hypertensive urgency Parapneumonic effusion Pleural effusion on left Pleural effusion, right Pneumonia, organism unspecified (02/05/12) Rheumatoid arthritis Secondary pulmonary hypertension Spinal stenosis Stroke 07/2017--DIFFICULTY WALKING Trigeminal neuralgia Ulcerative colitis Vitamin D deficiency Volume overload Surgical History H/O bilateral cataract extraction H/O right inguinal hernia repair History of appendectomy [place] of [place] [facility] [place] of breast biopsy LEFT MALIGNANT X2 History of colonoscopy History of esophagogastroduodenoscopy (EGD) History of gastric surgery 2012---[facility] ON STOMACH WALL History of lumpectomy of left breast X2 2005 WITH LYMPH NODE REMOVAL, 2012 History of tooth extraction ALL TEETH Family History Brother Family history of diabetes mellitus 2 BROTHERS Mother Family hx of colon cancer Father Family hx of colon cancer Social History Smoking Status: Former smoker Tobacco Type: Cigarettes Smoking End Date: Pt. states she smoked "29 years ago"; Second Hand Exposure: No; Do You Dip or Chew Tobacco: No; Tobacco Cessation Education Requested by Patient: No Hx Alcohol Use: No Hx Substance Use: No Preferred Language: Maori Communication Ability: Effective Visual Impairment: Limited Hearing Ability: Hard of Hearing Rfid Manager Required: No Beliefs That Will Affect Care: None marital status: Current Living Situation: Spouse Current Living Situation Comment: Lives with current occupational status: retired How many Children do You have: 2 How many Children do You have Comment: Daughters Leidy and Sonia are both local and able to assist with care as needed. Other Information That Helps Us Care for You: No Feels Safe at Home: Yes Safety Concerns: Feels Safe At This Time Diet Comment: stated she tries, but isn't always good about her diet during the past year weight has: decreased > 10 lbs Assistive Devices: Glasses and Walker Assistive Devices Comment: Pt. wearing glasses, upper and lower dentures Review of Systems Review of Systems: All systems reviewed & are unremarkable except as noted in HPI & below Physical Exam Constitutional: WD/WN, vitals as above Eyes: + anicteric sclerae; normal pupil size ENMT: external ear and nose normal, oropharynx normal Neck: trachea midline Respiratory: normal respiratory effort and able to speak in complete sentences; no respiratory distress, no labored breathing, does not use accessory muscles, no cough, not tachypneic, expiratory phase not prolonged and no stridor Auscultation: + crackles (Coarse bibasal); no wheezes Cardiovascular: Rate/Rhythm: regular rate and regular rhythm Heart Sounds: no murmur Vessels: no JVD Extremities: normal capillary refill and + pedal edema (2+ pre-tibial equal bilaterally); no calf tenderness Gastrointestinal (Abdomen): Inspection/Auscultation: normal bowel sounds Percussion/Palpation: + abdomen tender (Mild around ileostomy site and epigastric) and abdomen soft; no guarding and abdomen not rigid Musculoskeletal: no cyanosis or clubbing, extremities motor strength 5/5 Skin: no rashes, warm and dry (Mild venous dermatitis changes bilateral equal, skin on legs appears tight) Neurologic: moves all extremities and awake; no focal motor deficits and not confused Motor/Sensory: no tremor Psychiatric: A+Ox3, euthymic affect Genitourinary: no CVA tenderness Results & Data Results & Data ([facility]) Vital Signs (Past 12 Hours) Vital Signs Temp Pulse Pulse Pulse Resp BP Pulse Ox 06/26/20 13:42 75 20 06/26/20 12:31 96 H 23 85 L 06/26/20 11:30 73 22 96 06/26/20 10:59 37.1 C 72 16 190/[address] chest diagnostic wo con IMPRESSION: 1. Cardiomegaly with pulmonary edema and left greater than right pleural effusions. 2. New bibasilar predominate groundglass and reticulonodular opacities are compatible with an infectious or inflammatory process. Tracheobronchial secretions with bibasilar mucous plugging. Correlate clinically to exclude aspiration pneumonitis. 3. Unchanged mild mediastinal adenopathy. 4. Stable 9 mm subsolid nodule of the right lung apex. 5. Additional findings as above. CT SCAN OF THE ABDOMEN AND PELVIS WITHOUT CONTRAST IMPRESSION: 1. Postsurgical changes of a colectomy with a right lower quadrant ileostomy 2. Right lower quadrant parastomal hernia 3. Mildly dilated fluid-filled small bowel loops with normal caliber distal small bowel. The findings are suggestive of an early/partial small bowel obstruction with a suspected transition zone near the level of the parastomal hernia. 4. Small left pleural effusion and trace right pleural effusion. Septal edema. Medications Administered ER medications given: Levalbuterol 1.25 mg nebulizer Magnesium sulfate 1 g IV NSS 500 mL bolus Solu-Medrol 60 mg IV Ceftriaxone 2 g IV ECG Indication: chest pain Rate (beats per minute): 78 Rhythm: normal sinus Findings: + T-wave inversion (Lateral) Comparison ECG Date: from (April 30, 2019) Change: no significant change Code Status & VTE Plan Code Status DNR/DNI per patient wishes VTE Prophylaxis Plan VTE Prophylaxis will be ordered: No Reason for no VTE drug order: Treatment not indicated Reason for no VTE mechanical prophylaxis: Treatment not indicated PG Care Time/CCT Total # of Minutes Spent Total Time Spent with Patient: Total time spent is greater than 50% in coordination of care (as documented) at patient's floor/unit and/or counseling patient: Coding Level of Care Code 93072 Initial Inpt Care Lvl 3 Diagnoses Partial small bowel obstruction K56.600 Aspiration pneumonia J69.0 Aspiration pneumonia type: unspecified Laterality: unspecified laterality Lung location: unspecified part of lung Hypoxia R09.02 Volume overload E87.79 Hypervolemia type: other Rheumatoid arthritis M06.9 Rheumatoid arthritis location: unspecified site Rheumatoid factor presence: unspecified presence H/O ileostomy Z98.890 Parastomal hernia K43.5 Diabetes mellitus, type 2 E11.69 Diabetes mellitus complication status: with other specified complication Diabetes mellitus group home insulin use: unspecified termite helper insulin use status Ulcerative colitis K51.919 Digestive disease complication type: unspecified complication Ulcerative colitis location: unspecified ulcerative colitis location Hypertension I10 Hypertension type: essential hypertension Asthma J45.40 Asthma severity: moderate Asthma persistence: persistent Asthma complication type: uncomplicated Chronic kidney disease, stage V N18.5 (1) Rheumatoid arthritis Rheumatoid arthritis location: unspecified site Rheumatoid factor presence: unspecified presence Qualified Code(s): M06.9 - Rheumatoid arthritis, unspecified (2) Diabetes mellitus, type 2 Diabetes mellitus complication status: with other specified complication Diabetes mellitus termite helper insulin use: unspecified termite helper insulin use status Qualified Code(s): E11.69 - Type 2 diabetes mellitus with other specified complication (3) Aspiration pneumonia Aspiration pneumonia type: unspecified Laterality: unspecified laterality Lung location: unspecified part of lung Qualified Code(s): J69.0 - Pneumonitis due to inhalation of food and vomit (4) Hypertension Hypertension type: essential hypertension Qualified Code(s): I10 - Essential (primary) hypertension (5) Ulcerative colitis Digestive disease complication type: unspecified complication Ulcerative colitis location: unspecified ulcerative colitis location Qualified Code(s): K51.919 - Ulcerative colitis, unspecified with unspecified complications (6) Asthma Asthma severity: moderate Asthma persistence: persistent Asthma complication type: uncomplicated Qualified Code(s): J45.40 - Moderate persistent asthma, uncomplicated (7) Volume overload Hypervolemia type: other Qualified Code(s): E87.79 - Other fluid overload
--- NOTE | 2020-06-26 16:22 | Electrocardiogram Report ---
Test Reason : Blood Pressure : / mmHG Vent. Rate : 078 BPM Atrial Rate : 078 BPM P-R Int : 188 ms QRS Dur : 098 ms QT Int : 376 ms P-R-T Axes : 032 -14 155 degrees QTc Int : 428 ms Normal sinus rhythm Possible Left atrial enlargement Left ventricular hypertrophy with repolarization abnormality Abnormal ECG When compared with ECG of 29-APR-2020 17:00, No significant change was found Confirmed by Francisco Paiz ([id number]) on 06/26/2020 4:22:18 PM Referred By: REFERRED SELF Confirmed By:Francisco Paiz
--- NOTE | 2020-06-26 16:26 | XRay Report ---
XR chest 1V portable CLINICAL HISTORY: Shortness of breath. COMPARISON STUDY: Chest CT June 26, 2020 at 1:20 PM. FINDINGS: Right subclavian [id number] is in place. Chronic deformity of the right humerus is incid entally noted. Cardiomegaly is noted. There is interstitial thickening. Trace right pleural effusion is noted. A loculated small to moderate left pleural effusion is noted. There is associated left basi lar opacity. No pneumothorax is present. IMPRESSION: 1. Small to moderate loculated left pleural effusion. Trace right pleural effusion. Associated left b asilar opacity. 2. Cardiomegaly with suspected mild pulmonary edema. ACT 112: Negative or not required by law. Electronically signed by: Salvatore Sanderson M.D. 06/26/2020 4:24 PM
[2020-06-26] MEDS ORDERED: cefTRIAXone SODIUM 2000MG/70ML D5W IV ONE (16:58)
[2020-06-26 17:37] LABS: Influenza A virus by PCR Negative (Neg); Influenza B virus by PCR Negative (Neg); RSV by PCR Negative (Neg); SARS CoV2 RNA(COVID-19) InHosp NEGATIVE (Negative)
--- NOTE | 2020-06-26 19:38 | Surgery Consultation ---
Date of Consultation June 26, 2020 Assessment & Plan (1) Partial small bowel obstruction: Patient has been admitted to the hospital by the hospitalist service. At the time of my interview the patient noted that her abdominal pain as well as her nausea vomiting had completely resolved and her ostomy appears to be functioning normally. Therefore recommend proceeding in the following manner: Provide analgesics Provide antiemetics To new n.p.o. status for tonight and if her clinical status remains stable or improved would slowly advance her diet starting tomorrow Provide IV fluids for hydration If the patient's abdominal pain or nausea and vomiting return or if her abdomen becomes more distended consideration can be given to placing an NG tube and I not feel this modality is needed at this time We will continue following with the patient is hospitalized Patient has numerous other medical problems which will be managed by the primary service Supervising Physician Co-Signing Physician Notes I personally saw and evaluated the patient with Ben Palma PA-C and agree with the assessment and plan. 80 yo with history of multiple abdominal surgeries, pSBO -Her symptoms have resolved -Advance diet as tolerated History of Present Illness Reason for Consultation: Partial small bowel obstruction History of Present Illness This is an 80-year-old female who presented to the emergency department due to abdominal pain as well as shortness of breath. Patient denies any fevers, shakes, chills. She did note some abdominal pain that was greatest in the epigastric region that began last night. She did have a few episodes of nausea vomiting. She notes that she has had prior abdominal surgeries and has an ostomy. She notes that the pain that she was having did not radiate. She also did not note any palliative or provocative factors prior to arriving at the hospital. Should be noted that shortly before my arrival to bedside the patient noted that her ostomy began to have normal output and her abdominal pain as well as her nausea vomiting have completely resolved In the emergency department the patient did have labs and imaging which were independently reviewed by myself. CBC revealed white blood cell count, hemoglobin, and platelet count were all within normal range. A chemistry profile revealed her sodium and potassium were within normal range. Her BUN and creatinine were noted to be 53 and 3.8. This creatinine level was at her baseline level. A Covid test was noted to be negative.A CT scan of the abdomen did show some dilated small bowel loops however the distal bowel did appear to be normal. This was suggestive of an early partial small bowel obstruction. Chest CT did show bibasilar groundglass opacities that were concerning for an infectious or inflammatory process and tracheobronchial bibasilar mucous plugging was noted. At the time of my interview she was in no distress as noted above her pain had resolved. Allergies Allergy/AdvReac Type Severity Reaction Status Date / Time bee venom protein (honey bee) Allergy Severe ANAPHYLAXIS Verified 06/24/20 14:17 cefaclor Allergy Severe stiff and Verified 06/24/20 14:17 sore muscles-PT DENIES lisinopril Allergy Severe tongue Verified 06/24/20 14:17 swelling diltiazem Allergy Intermediate rash Verified 06/24/20 14:17 Penicillins Allergy Mild RASH Verified 06/24/20 14:17 tetracycline Allergy Mild UNK-PT Verified 06/24/20 14:17 DENIES amoxicillin Allergy Unknown RASH Verified 06/24/20 14:17 cefuroxime Allergy Unknown TAST Verified 06/24/20 14:17 clavulanic acid Allergy Unknown ITCHING Verified 06/24/20 14:17 levofloxacin Allergy Unknown NAUSEA, Verified 06/24/20 14:17 DIZZINESS baclofen AdvReac Severe Severe Verified 06/24/20 14:17 sedation alendronate sodium AdvReac Intermediate FELT SICK Verified 06/24/20 14:17 ciprofloxacin AdvReac Intermediate LEGS ARMS Verified 06/24/20 14:17 STIFF, PAINFUL metformin AdvReac Intermediate CAUSED Verified 06/24/20 14:17 [employer] LACTIC ACID LEVELS tramadol AdvReac Intermediate DIZZINESS Verified 06/24/20 14:17 adhesive AdvReac Mild redness Verified 06/24/20 14:17 mercaptopurine AdvReac Mild MADE HER Verified 06/24/20 14:17 VERY ILL olmesartan AdvReac Mild HEADACHE Verified 06/24/20 14:17 Sulfa (Sulfonamide AdvReac Mild CAUSED Verified 06/24/20 14:17 Antibiotics) DIZZINESS sulfamethoxazole AdvReac Mild CAUSED Verified 06/24/20 14:17 DIZZINESS trimethoprim AdvReac Mild BACTRIM Verified 06/24/20 14:17 CAUSED DIZZINESS aspirin AdvReac Unknown CAUSES Verified 06/24/20 14:17 BRUISING Home Medications Medication Instructions Recorded Confirmed Type aspirin [Aspirin Low Dose] 81 mg PO QPM 11/22/17 06/26/20 History multivitamin with minerals 1 tab PO QAM 11/22/17 06/26/20 History pantoprazole 40 mg PO QAM 11/22/17 06/26/20 History prednisone 5 mg PO QAM 11/22/17 06/26/20 History brimonidine 1 drp OPB BID 06/22/18 06/26/20 History dorzolamide 1 drp OPR BID 06/22/18 06/26/20 History albuterol sulfate 90 mcg/actuation 2 - 4 puff INHALATION QID PRN #3 02/15/19 06/26/20 Rx aerosol inhaler inhaler acetaminophen [Tylenol Extra 500 mg PO Q6H PRN 08/25/19 06/26/20 History Strength] Desenex 1 applic EXT PRN PRN #43 gm 08/31/19 06/26/20 Rx diclofenac sodium [Voltaren] 2 g EXT QID PRN #100 gm 08/31/19 06/26/20 Rx sodium bicarbonate 650 mg tablet 650 mg PO DAILY #60 tab 01/12/20 06/26/20 Rx nystatin [Nystop] 1 applic EXT Q12 PRN 03/01/20 06/26/20 History bupropion HCl 200 mg PO BID 04/29/20 06/26/20 History hydrocodone-acetaminophen 1 tab PO DIRECTED PRN 04/29/20 06/26/20 History melatonin 6 mg PO HS 04/29/20 06/26/20 History Anoro Ellipta 1 puff INHALATION DAILY #0 ea 05/07/20 06/26/20 Rx anastrozole 1 mg PO QPM #0 tab 05/07/20 06/26/20 Rx ferrous sulfate 325 mg PO BID #0 tab 05/07/20 06/26/20 Rx guaifenesin [Mucinex] 600 mg PO Q12 #0 tab 05/07/20 06/26/20 Rx metoprolol tartrate 25 mg PO BID #0 tab 05/07/20 06/26/20 Rx montelukast [Singulair] 10 mg PO HS #0 tab 05/07/20 06/26/20 Rx zafirlukast 20 mg tablet 20 mg PO Q12H #180 tab 06/17/20 06/26/20 Rx bumetanide 1 mg tablet 1 mg PO DAILY tab 06/24/20 06/26/20 History Patient History Medical History Acute osteomyelitis (06/05/01) "MRSA of the thoracic spine " On 02/05/12 10:49 Wilfredo Anthony Al wrote "MRSA of the thoracic spine " Asthma Bilateral interstitial pneumonia Calcified granuloma of lung CHF (congestive heart failure) Chronic back pain Chronic kidney disease, stage V CKD (chronic kidney disease) COPD (chronic obstructive pulmonary disease) Deep vein thrombosis L LEG Dyspnea Elevated troponin Fibromyalgia GERD (gastroesophageal reflux disease) Glaucoma BILT EYES Hypercalcemia Hyperglycemia due to diabetes mellitus Hyperlipidemia Hypertension Hypertensive urgency Parapneumonic effusion Pleural effusion on left Pleural effusion, right Pneumonia, organism unspecified (02/05/12) Rheumatoid arthritis Secondary pulmonary hypertension Spinal stenosis Stroke 07/2017--DIFFICULTY WALKING Trigeminal neuralgia Ulcerative colitis Vitamin D deficiency Volume overload Surgical History H/O bilateral cataract extraction H/O right inguinal hernia repair History of appendectomy History of bowel resection 1993 WITH ILEOSTOMY @ [facility] [place] History of breast biopsy LEFT MALIGNANT X2 History of colonoscopy History of esophagogastroduodenoscopy (EGD) History of gastric surgery 2012---[facility] ON STOMACH WALL History of lumpectomy of left breast X2 2005 WITH LYMPH NODE REMOVAL, 2012 History of tooth extraction ALL TEETH Family History Brother Family history of diabetes mellitus 2 BROTHERS Mother Family hx of colon cancer Father Family hx of colon cancer Social History Smoking Status: Former smoker Tobacco Type: Cigarettes Smoking End Date: Pt. states she smoked "29 years ago"; Second Hand Exposure: No; Do You Dip or Chew Tobacco: No; Tobacco Cessation Education Requested by Patient: No Hx Alcohol Use: No Hx Substance Use: No Preferred Language: French Communication Ability: Effective Visual Impairment: Limited Hearing Ability: Hard of Hearing Vegetable Tester Required: No Beliefs That Will Affect Care: None marital status: Current Living Situation: Spouse Current Living Situation Comment: Lives with current occupational status: retired How many Children do You have: 2 How many Children do You have Comment: Daughters Leidy and Sonia are both local and able to assist with care as needed. Other Information That Helps Us Care for You: No Feels Safe at Home: Yes Safety Concerns: Feels Safe At This Time Diet Comment: stated she tries, but isn't always good about her diet during the past year weight has: decreased > 10 lbs Assistive Devices: Glasses and Walker Assistive Devices Comment: Pt. wearing glasses, upper and lower dentures Review of Systems Constitutional: no fever and no chills Eyes: no diplopia Ear, Nose, Mouth, Throat: no ear pain Respiratory: + cough and + dyspnea Cardiovascular: no chest pain Gastrointestinal: + abdominal pain, + nausea and + vomiting Genitourinary: no dysuria Musculoskeletal: no back pain Integumentary: no rash Neurologic: no localized weakness Physical Exam Constitutional: well developed and well nourished; no acute distress Eyes: Wears glasses ENMT: Ears: no hearing impairment Respiratory: normal respiratory effort; no respiratory distress and no labored breathing Breath sounds are decreased at the base Cardiovascular: Rate/Rhythm: regular rate and regular rhythm Gastrointestinal (Abdomen): Abdomen is soft and nondistended. There is no tenderness with palpation. Bowel sounds are present. Patient did have an ostomy noted in the right lower quadrant. Appear to be functioning normally. Musculoskeletal: No calf tenderness Skin: no rashes, warm and dry Neurologic: moves all extremities Psychiatric: A+Ox3, euthymic affect Results & Data ([facility]) Vital Signs (Past 12 Hours) Vital Signs Temp Pulse Pulse Pulse Resp BP BP 06/26/20 19:00 83 20 06/26/20 18:00 83 20 06/26/20 17:00 81 06/26/20 16:38 06/26/20 15:56 78 20 195/95 H 06/26/20 15:00 79 20 06/26/20 13:42 75 20 06/26/20 13:00 81 20 06/26/20 12:31 96 H 23 06/26/20 12:12 81 20 06/26/20 11:41 06/26/20 11:39 83 22 06/26/20 11:30 73 22 06/26/20 10:59 37.1 C 72 16 190/75 H Pulse Ox 06/26/20 19:00 99 06/26/20 18:00 100 06/26/20 17:00 06/26/20 16:38 96 06/26/20 15:56 96 06/26/20 15:00 99 06/26/20 13:42 06/26/20 13:00 98 06/26/20 12:31 85 L 06/26/20 12:12 97 06/26/20 11:41 96 06/26/20 11:39 96 06/26/20 11:30 96 06/26/20 10:59 94 PG Care Time/CCT Total # of Minutes Spent Total Time Spent with Patient: Total time spent is greater than 50% in coordination of care (as documented) at patient's floor/unit and/or counseling patient: Coding Level of Care Code 34610 Inpt Consult Level 5 Diagnoses Partial small bowel obstruction K56.600
--- NOTE | 2020-06-26 19:41 | Emergency Department Note ---
Impression & Plan Partial small bowel obstruction, Aspiration pneumonia, Hypoxia ED Provider Note NAME: HOMER MACEDO AGE: 80 SEX: F : 1940 ARRIVES VIA: Walk-In INFORMANT: Patient, son ED PROVIDER(S): Shankar Lees MD CHIEF COMPLAINT: abdominal pain HPI: This is an 80-year-old female who presents emergency department complaining of abdominal pain. The patient reports over the past day she has been having increasing abdominal pain. She reports just before she arrived in the emergency department that she vomited and had significant relief of the pain. She describes the pain as an aching sensation made worse with movement however immobilization makes the pain better. She has not taken anything for the pain prior to arrival. The patient also reports she is not normally on oxygen at home. ROS: See above HPI for pertinent positives & negatives. A total of 10 systems reviewed and were otherwise negative. PAST MEDICAL HISTORY: See Below PAST SURGICAL HISTORY: See Below FAMILY HISTORY: See Below SOCIAL HISTORY: See Below HOME MEDICATIONS: See Below ALLERGIES: See Below VITALS: See Below PHYSICAL EXAMINATION: VITAL SIGNS - Vital signs and nursing notes were reviewed. GENERAL - 80-year-old female appearing stated age who is in no acute distress. SKIN - Without rashes. HEAD - NC/AT. EYES - PERRL with EOMI bilaterally. Sclera anicteric. Palpebral conjunctiva pink and moist with no injection noted. EARS - No deformities of external structures noted on gross examination bilaterally. NOSE - Midline and without cyanosis. No epistaxis or purulent drainage noted. Septum midline without deviation or septal hematoma noted. MOUTH/OROPHARYNX - Without perioral cyanosis. Buccal mucosa pink and moist and without leukoplakia. Tongue midline with equal elevation of palate bilaterally. No tonsillar hypertrophy, erythema, or exudates noted. NECK - Neck with FROM. Supple to palpation. No nuchal rigidity. LUNGS - Chest wall symmetric without accessory muscle use, intercostals retractions, or central cyanosis. Normal vesicular breath sounds CTA B/L. No wheezes, rales, or rhonchi appreciated. CARDIAC - RRR with S1/S2. No murmur, rubs, or gallops appreciated. ABDOMEN - Abdominal contour without pulsations or visible masses. BS normoactive all four quadrants. Ostomy in place RLQ, nontender EXTREMITIES - No clubbing or peripheral cyanosis. No pretibial edema present. +3/5 radial, posterior tibial, and dorsalis pedis pulses palpated throughout. +5/5 strength noted in UE/LE bilaterally. NEUROLOGIC - Cranial nerves II through XII grossly intact. Sensory intact to light touch throughout. Patellar reflexes +2/4. PSYCH - A&Ox3 and cooperates fully with examiner. Pt is very pleasant and interacts well with examiner. MEDICAL DECISION MAKING: Patient was seen and evaluated as above in room B12. Review was performed of nursing notes and vital signs. I did review pertinent previous visits and patient history. After obtaining a thorough history and physical examination the above work up was performed. This is an 80-year-old female who presents emergency department complaining of abdominal pain. The patient's pain is resolved upon arrival to the emergency department. She was sent for CAT scan of the chest abdomen pelvis. This is concerning for aspiration pneumonia. As patient is requiring oxygen here. She was given Xopenex and started on Rocephin. She does have a slight elevation in her white blood cell count her troponin is also slightly elevated however her troponin is always elevated. Based on all these findings I did discuss the case with the hospitalist service who did agree to admit the patient. Patient and family are in agreement with the treatment plan. An order was placed for continuous cardiac monitoring. The monitor shows a rate of 83 with Normal SInus rhythm. The patient was evaluated during a period of high volume and high acuity during the global COVID-19 pandemic, and that diagnosis was suspected/considered upon their initial presentation. Their evaluation, treatment and testing was consistent with current guidelines for patients who present with complaints or symptoms that may be related to COVID-19. Patient was seen while provider was wearing PPE. Triage Nursing notes reviewed. Prior medical records reviewed Vital Signs: reviewed and remarkable for no significant abnormalities Differential diagnosis: Appendicitis, ovarian cyst, ovarian torsion, ectopic , TOA, PID, infections, diverticulitis, UTI, obstruction, mesenteric ischemia, aortic pathology, inflammatory bowel disease, renal colic, PUD, pancreatitis, biliary pathology, hernia, volvulus, constipation, as well as other pathologies. ER treatment provided: See below Diagnostics interpreted by me: ECG: Normal sinus rhythm possible left atrial enlargement left ventricular hypertrophy QTC is 428 ventricular rate is 78 EKG is compared to 04/29/2020 no significant change was found. He said he is used to be an alcoholic Drink he has had multiple DUIs Laboratory studies: As stated above and show below. Imaging studies: See below Past Med/Surg History Medical History Acute osteomyelitis (06/05/01) "MRSA of the thoracic spine " On 02/05/12 10:49 Wilfredo Mcallisterguykojo wrote "MRSA of the thoracic spine " Asthma Bilateral interstitial pneumonia Calcified granuloma of lung CHF (congestive heart failure) Chronic back pain Chronic kidney disease, stage V CKD (chronic kidney disease) COPD (chronic obstructive pulmonary disease) Deep vein thrombosis L LEG Dyspnea Elevated troponin Fibromyalgia GERD (gastroesophageal reflux disease) Glaucoma BILT EYES Hypercalcemia Hyperglycemia due to diabetes mellitus Hyperlipidemia Hypertension Hypertensive urgency Parapneumonic effusion Pleural effusion on left Pleural effusion, right Pneumonia, organism unspecified (02/05/12) Rheumatoid arthritis Secondary pulmonary hypertension Spinal stenosis Stroke 07/2017--DIFFICULTY WALKING Trigeminal neuralgia Ulcerative colitis Vitamin D deficiency Volume overload Surgical History H/O bilateral cataract extraction H/O right inguinal hernia repair History of appendectomy History of bowel resection 1993 WITH ILEOSTOMY @ [facility] [place] History of breast biopsy LEFT MALIGNANT X2 History of colonoscopy History of esophagogastroduodenoscopy (EGD) History of gastric surgery 2012---[facility] ON STOMACH WALL History of lumpectomy of left breast X2 2005 WITH LYMPH NODE REMOVAL, 2012 History of tooth extraction ALL TEETH Family History Brother Family history of diabetes mellitus 2 BROTHERS Mother Family hx of colon cancer Father Family hx of colon cancer Social History Smoking Status: Former smoker Tobacco Type: Cigarettes Second Hand Exposure: No; Hx Alcohol Use: No Hx Substance Use: No Preferred Language: Bahraini Communication Ability: Effective Visual Impairment: Limited Hearing Ability: Hard of Hearing Sanding Line Operator Required: No Beliefs That Will Affect Care: None marital status: Current Living Situation: Spouse Current Living Situation Comment: Lives with current occupational status: retired How many Children do You have: 2 How many Children do You have Comment: Daughters Leidy and Sonia are both local and able to assist with care as needed. Feels Safe at Home: Yes Diet Comment: stated she tries, but isn't always good about her diet during the past year weight has: decreased > 10 lbs Assistive Devices: Glasses, Walker and Wheelchair Allergies Allergies Allergy/AdvReac Type Severity Reaction Status Date / Time bee venom protein (honey bee) Allergy Severe ANAPHYLAXIS Verified 06/24/20 14:17 cefaclor Allergy Severe stiff and Verified 06/24/20 14:17 sore muscles-PT DENIES lisinopril Allergy Severe tongue Verified 06/24/20 14:17 swelling diltiazem Allergy Intermediate rash Verified 06/24/20 14:17 Penicillins Allergy Mild RASH Verified 06/24/20 14:17 tetracycline Allergy Mild UNK-PT Verified 06/24/20 14:17 DENIES amoxicillin Allergy Unknown RASH Verified 06/24/20 14:17 cefuroxime Allergy Unknown TAST Verified 06/24/20 14:17 clavulanic acid Allergy Unknown ITCHING Verified 06/24/20 14:17 levofloxacin Allergy Unknown NAUSEA, Verified 06/24/20 14:17 DIZZINESS baclofen AdvReac Severe Severe Verified 06/24/20 14:17 sedation alendronate sodium AdvReac Intermediate FELT SICK Verified 06/24/20 14:17 ciprofloxacin AdvReac Intermediate LEGS ARMS Verified 06/24/20 14:17 STIFF, PAINFUL metformin AdvReac Intermediate CAUSED Verified 06/24/20 14:17 BACK PAIN AND INC. LACTIC ACID LEVELS tramadol AdvReac Intermediate DIZZINESS Verified 06/24/20 14:17 adhesive AdvReac Mild redness Verified 06/24/20 14:17 mercaptopurine AdvReac Mild MADE HER Verified 06/24/20 14:17 VERY ILL olmesartan AdvReac Mild HEADACHE Verified 06/24/20 14:17 Sulfa (Sulfonamide AdvReac Mild CAUSED Verified 06/24/20 14:17 Antibiotics) DIZZINESS sulfamethoxazole AdvReac Mild CAUSED Verified 06/24/20 14:17 DIZZINESS trimethoprim AdvReac Mild BACTRIM Verified 06/24/20 14:17 CAUSED DIZZINESS aspirin AdvReac Unknown CAUSES Verified 06/24/20 14:17 BRUISING Home Meds Home Medications Medication Instructions Recorded Confirmed aspirin [Aspirin Low Dose] 81 mg PO QPM 11/22/17 06/26/20 multivitamin with minerals 1 tab PO QAM 11/22/17 06/26/20 pantoprazole 40 mg PO QAM 11/22/17 06/26/20 prednisone 5 mg PO QAM 11/22/17 06/26/20 brimonidine 1 drp OPB BID 06/22/18 06/26/20 dorzolamide 1 drp OPR BID 06/22/18 06/26/20 acetaminophen [Tylenol Extra 500 mg PO Q6H PRN 08/25/19 06/26/20 Strength] nystatin [Nystop] 1 applic EXT Q12 PRN 03/01/20 06/26/20 bupropion HCl 200 mg PO BID 04/29/20 06/26/20 hydrocodone-acetaminophen 1 tab PO DIRECTED PRN 04/29/20 06/26/20 melatonin 6 mg PO HS 04/29/20 06/26/20 bumetanide 1 mg tablet 1 mg PO DAILY tab 06/24/20 06/26/20 Previous Rx's Medication Instructions Recorded albuterol sulfate 90 mcg/actuation 2 - 4 puff INHALATION QID PRN #3 02/15/19 aerosol inhaler inhaler Desenex 1 applic EXT PRN PRN #43 gm 08/31/19 diclofenac sodium [Voltaren] 2 g EXT QID PRN #100 gm 08/31/19 sodium bicarbonate 650 mg tablet 650 mg PO DAILY #60 tab 01/12/20 anastrozole 1 mg PO QPM #0 tab 05/07/20 ferrous sulfate 325 mg PO BID #0 tab 05/07/20 guaifenesin [Mucinex] 600 mg PO Q12 #0 tab 05/07/20 metoprolol tartrate 25 mg PO BID #0 tab 05/07/20 montelukast [Singulair] 10 mg PO HS #0 tab 05/07/20 umeclidinium-vilanterol [Anoro 1 puff INHALATION DAILY #0 ea 05/07/20 Ellipta] zafirlukast 20 mg tablet 20 mg PO Q12H #180 tab 06/17/20 Results & Data (ED) Vital Signs Vital Signs - 24 hr 06/26/20 10:59 06/26/20 11:30 06/26/20 11:39 Temperature 37.1 C Temperature Source Temporal Artery Scan Pulse Rate 72 73 Pulse Rate [Apical] 83 Pulse Rate [Finger] Pulse Rhythm Regular Regular Pulse Rhythm [Apical] Regular Pulse Rhythm [Finger] Pulse Strength Normal Pulse Strength [Apical] Normal Pulse Strength [Finger] Respiratory Rate 16 22 22 Respiratory Effort / Characteristics Non-Labored Non-Labored Spontaneous Respiratory Depth Normal Normal Respiratory Pattern Regular Regular Blood Pressure 190/75 H Blood Pressure [Right Arm] Blood Pressure Mean 113 Blood Pressure Mean [Right Arm] Blood Pressure Position Sitting Blood Pressure Position [Right Arm] Pulse Oximetry 94 96 96 Oxygen Delivery Method Room Air Nasal Cannula Nasal Cannula Oxygen Flow Rate 2 2 Sepsis Recent Fever Within 48 Hours No Sepsis New/Unexplained Change in Mental Status N/A Sepsis Action Taken by Nursing No Action Required Oxygen Flow Rate - Titration 2 Pulse Oximetry Post Tiitration 96 06/26/20 11:41 06/26/20 12:12 06/26/20 12:31 Temperature Temperature Source Pulse Rate Pulse Rate [Apical] 81 Pulse Rate [Finger] 96 H Pulse Rhythm Pulse Rhythm [Apical] Regular Pulse Rhythm [Finger] Pulse Strength Pulse Strength [Apical] Normal Pulse Strength [Finger] Respiratory Rate 20 23 Respiratory Effort / Characteristics Non-Labored Spontaneous Spontaneous Short of Breath Respiratory Depth Normal Respiratory Pattern Regular Blood Pressure Blood Pressure [Right Arm] Blood Pressure Mean Blood Pressure Mean [Right Arm] Blood Pressure Position Blood Pressure Position [Right Arm] Pulse Oximetry 96 97 85 L Oxygen Delivery Method Nasal Cannula Nasal Cannula Room Air Oxygen Flow Rate 2 2 Sepsis Recent Fever Within 48 Hours Sepsis New/Unexplained Change in Mental Status Sepsis Action Taken by Nursing Oxygen Flow Rate - Titration Pulse Oximetry Post Tiitration 06/26/20 13:00 06/26/20 13:42 06/26/20 15:00 Temperature Temperature Source Pulse Rate Pulse Rate [Apical] 81 75 79 Pulse Rate [Finger] Pulse Rhythm Pulse Rhythm [Apical] Regular Regular Pulse Rhythm [Finger] Pulse Strength Pulse Strength [Apical] Normal Normal Pulse Strength [Finger] Respiratory Rate 20 20 20 Respiratory Effort / Characteristics Non-Labored Spontaneous Spontaneous Non-Labored Spontaneous Respiratory Depth Normal Normal Respiratory Pattern Regular Regular Blood Pressure Blood Pressure [Right Arm] Blood Pressure Mean Blood Pressure Mean [Right Arm] Blood Pressure Position Blood Pressure Position [Right Arm] Pulse Oximetry 98 99 Oxygen Delivery Method Nasal Cannula Nasal Cannula Nasal Cannula Oxygen Flow Rate 2 2 2 Sepsis Recent Fever Within 48 Hours Sepsis New/Unexplained Change in Mental Status Sepsis Action Taken by Nursing Oxygen Flow Rate - Titration Pulse Oximetry Post Tiitration 06/26/20 15:56 06/26/20 16:38 06/26/20 17:00 Temperature Temperature Source Pulse Rate Pulse Rate [Apical] 78 81 Pulse Rate [Finger] Pulse Rhythm Pulse Rhythm [Apical] Regular Regular Pulse Rhythm [Finger] Pulse Strength Pulse Strength [Apical] Normal Normal Pulse Strength [Finger] Respiratory Rate 20 Respiratory Effort / Characteristics Non-Labored Spontaneous Respiratory Depth Normal Respiratory Pattern Regular Blood Pressure Blood Pressure [Right Arm] 195/95 H Blood Pressure Mean Blood Pressure Mean [Right Arm] 128 Blood Pressure Position Blood Pressure Position [Right Arm] Sitting Pulse Oximetry 96 96 Oxygen Delivery Method Nasal Cannula Nasal Cannula Oxygen Flow Rate 2 2 Sepsis Recent Fever Within 48 Hours Sepsis New/Unexplained Change in Mental Status Sepsis Action Taken by Nursing Oxygen Flow Rate - Titration Pulse Oximetry Post Tiitration 06/26/20 18:00 06/26/20 19:00 Temperature Temperature Source Pulse Rate Pulse Rate [Apical] Pulse Rate [Finger] 83 83 Pulse Rhythm Pulse Rhythm [Apical] Pulse Rhythm [Finger] Regular Regular Pulse Strength Pulse Strength [Apical] Pulse Strength [Finger] Normal Normal Respiratory Rate 20 20 Respiratory Effort / Characteristics Non-Labored Spontaneous Non-Labored Spontaneous Respiratory Depth Normal Normal Respiratory Pattern Regular Regular Blood Pressure Blood Pressure [Right Arm] Blood Pressure Mean Blood Pressure Mean [Right Arm] Blood Pressure Position Blood Pressure Position [Right Arm] Pulse Oximetry 100 99 Oxygen Delivery Method Nasal Cannula Nasal Cannula Oxygen Flow Rate 2 2 Sepsis Recent Fever Within 48 Hours Sepsis New/Unexplained Change in Mental Status Sepsis Action Taken by Nursing Oxygen Flow Rate - Titration Pulse Oximetry Post Tiitration Laboratory Data Result diagrams: 06/26/20 11:26 06/26/20 11:26 Lab Results 06/26/20 06/26/20 06/26/20 Range/Units 11:26 11:26 11:26 WBC 10.52 (4.8-10.8) K/uL RBC 3.85 L (4.2-5.4) M/uL Hgb 12.2 (12.0-16.0) g/dL Hct 36.9 L (37-47) % MCV 95.8 (80-100) fL MCH 31.7 (25-34) pg MCHC 33.1 (32-36) g/dL RDW Std Deviation 49.6 H (36.4-46.3) fL RDW Coeff of Michelle 14.1 (11.5-14.5) % Plt Count 176 (130-400) K/uL MPV 10.9 H (7.4-10.4) fL Immature Gran % (Auto) 0.1 % Neut % (Auto) 83.5 % Lymph % (Auto) 10.3 % Bulloch % (Auto) 4.7 % Eos % (Auto) 1.0 % Baso % (Auto) 0.4 % Neut # (Auto) 8.79 H (1.4-6.5) K/uL Lymph # (Auto) 1.08 L (1.2-3.4) K/uL Bulloch # (Auto) 0.49 (0.11-0.59) K/uL Eos # (Auto) 0.11 (0-0.5) K/uL Baso # (Auto) 0.04 (0-0.2) K/uL Immature Gran # (Auto) 0.01 (0.00-0.02) K/uL PT 9.8 (9.0-12.0) Seconds INR 1.0 (0.9-1.1) APTT 21.4 (21.0-31.0) Seconds PTT Ratio 0.8 Sodium 137 (136-145) mmol/L Potassium 3.5 (3.5-5.1) mmol/L Chloride 108 H (98-107) mmol/L Carbon Dioxide 22 (21-32) mmol/L Anion Gap 7.0 (3-11) BUN 53 H (7-18) mg/dl Creatinine 3.86 H (0.6-1.2) mg/dl Est Cr Clr Drug Dosing 11.0 ml/min Est GFR ( Amer) 11.9 Est GFR (Non-Af Amer) 10.2 BUN/Creatinine Ratio 13.8 (10-20) Glucose 203 H (70-99) mg/dl Calcium 9.9 (8.5-10.1) mg/dl Magnesium 2.1 (1.8-2.4) mg/dl Total Bilirubin 0.4 (0.2-1) mg/dl AST 10 L (15-37) U/L ALT 19 (12-78) U/L Alkaline Phosphatase 68 (45-117) U/L Troponin I 0.043 (0-0.045) ng/ml Total Protein 6.2 L (6.4-8.2) gm/dl Albumin 3.2 L (3.4-5.0) gm/dl Globulin 3.0 (2.5-4.0) gm/dl Albumin/Globulin Ratio 1.1 (0.9-2) Lipase 52 L (73-393) U/L Procalcitonin (0-0.5) ng/ml COVID-19 Eval Order SARS-CoV-2 (PCR) (Negative) Influenza Type A (PCR) (Neg) Influenza Type B (PCR) (Neg) RSV (RT-PCR) (Neg) 06/26/20 06/26/20 06/26/20 Range/Units 11:26 16:35 16:35 WBC (4.8-10.8) K/uL RBC (4.2-5.4) M/uL Hgb (12.0-16.0) g/dL Hct (37-47) % MCV (80-100) fL MCH (25-34) pg MCHC (32-36) g/dL RDW Std Deviation (36.4-46.3) fL RDW Coeff of Michelle (11.5-14.5) % Plt Count (130-400) K/uL MPV (7.4-10.4) fL Immature Gran % (Auto) % Neut % (Auto) % Lymph % (Auto) % Bulloch % (Auto) % Eos % (Auto) % Baso % (Auto) % Neut # (Auto) (1.4-6.5) K/uL Lymph # (Auto) (1.2-3.4) K/uL Bulloch # (Auto) (0.11-0.59) K/uL Eos # (Auto) (0-0.5) K/uL Baso # (Auto) (0-0.2) K/uL Immature Gran # (Auto) (0.00-0.02) K/uL PT (9.0-12.0) Seconds INR (0.9-1.1) APTT (21.0-31.0) Seconds PTT Ratio Sodium (136-145) mmol/L Potassium (3.5-5.1) mmol/L Chloride (98-107) mmol/L Carbon Dioxide (21-32) mmol/L Anion Gap (3-11) BUN (7-18) mg/dl Creatinine (0.6-1.2) mg/dl Est Cr Clr Drug Dosing ml/min Est GFR ( Amer) Est GFR (Non-Af Amer) BUN/Creatinine Ratio (10-20) Glucose (70-99) mg/dl Calcium (8.5-10.1) mg/dl Magnesium (1.8-2.4) mg/dl Total Bilirubin (0.2-1) mg/dl AST (15-37) U/L ALT (12-78) U/L Alkaline Phosphatase (45-117) U/L Troponin I (0-0.045) ng/ml Total Protein (6.4-8.2) gm/dl Albumin (3.4-5.0) gm/dl Globulin (2.5-4.0) gm/dl Albumin/Globulin Ratio (0.9-2) Lipase (73-393) U/L Procalcitonin < 0.05 (0-0.5) ng/ml COVID-19 Eval Order CovFluRsv at [facility] SARS-CoV-2 (PCR) NEGATIVE (Negative) Influenza Type A (PCR) Negative (Neg) Influenza Type B (PCR) Negative (Neg) RSV (RT-PCR) Negative (Neg) Administered Medications Discontinued Medications Ceftriaxone Sodium (Ceftriaxone Sodium 2000mg/70ml D5w) Confirm Administered Dose 2,000 mg IV .STK-MED ONE Stop: 06/26/20 16:59 Last Admin: 06/26/20 17:13 Dose: Not Given Documented by: [id number] Magnesium Sulfate/Dextrose (Magnesium Sulfate / D5w) 1 gm in 100 mls @ 100 mls/hr IV NOW STA Stop: 06/26/20 13:10 Last Infusion: 06/26/20 15:00 Dose: 0 mls/hr Documented by: [id number] Admin: 06/26/20 13:47 Dose: 100 mls/hr Documented by: [id number] Sodium Chloride (Nss 1000ml) 500 mls @ 999 mls/hr IV .Q31M ONE Stop: 06/26/20 12:41 Last Infusion: 06/26/20 15:00 Dose: 0 mls/hr Documented by: [id number] Admin: 06/26/20 13:47 Dose: 999 mls/hr Documented by: [id number] Ceftriaxone Sodium (Rocephin) 2,000 mg in 70 mls @ 140 mls/hr IV NOW STA Stop: 06/26/20 14:32 Last Infusion: 06/26/20 17:34 Dose: 0 mls/hr Documented by: [id number] Admin: 06/26/20 17:04 Dose: 140 mls/hr Documented by: [id number] Levalbuterol HCl (Levalbuterol Hcl 1.25 Mg/3 Ml Neb) 1.25 mg NEB NOW STA Stop: 06/26/20 12:11 Last Admin: 06/26/20 12:31 Dose: 1.25 mg Documented by: [id number] Levalbuterol HCl (Levalbuterol Hcl 1.25 Mg/3 Ml Neb) 1.25 mg NEB NOW STA Stop: 06/26/20 13:26 Last Admin: 06/26/20 13:42 Dose: 1.25 mg Documented by: [id number] Methylprednisolone (Methylprednisolone 125 Mg/2 Ml Vial) 60 mg IV NOW STA Stop: 06/26/20 13:26 Last Admin: 06/26/20 13:47 Dose: 60 mg Documented by: [id number] Imaging Data Radiologist's Impression: Abdomen/Pelvis CT 06/26/20 12:10 CT SCAN OF THE ABDOMEN AND PELVIS WITHOUT CONTRAST CLINICAL HISTORY: Diffuse abdominal pain. Vomiting. History of bowel obstruction. COMPARISON STUDY: 07/23/2019 TECHNIQUE: CT scan of the abdomen and pelvis was performed from the lung bases to the proximal femurs. Images are reviewed in the axial, sagittal, and coronal planes. IV contrast was not administered for this examination. A dose lowering technique was utilized adhering to the principles of ALARA. CT DOSE: FINDINGS: Lower chest: There is a right-sided A-Port catheter. There is septal edema. There is a small left pleural effusion and trace right pleural effusion. There are basilar atelectatic changes. Liver: The unenhanced liver is normal in size, contour, and attenuation. There is no intrahepatic biliary ductal dilatation. Gallbladder: Unremarkable. Spleen: Normal in size and attenuation. Pancreas: Atrophic Adrenal glands: Unremarkable. Kidneys: No renal, ureteral, or bladder calculi are visualized. Bowel: There are postsurgical changes of a prior colectomy. There is a right lower quadrant ileostomy. There is a right parastomal hernia. There are mildly dilated small bowel loops with multiple air-fluid levels. The distal small bowel is of normal caliber. The findings are suggestive of an early or partial small bowel obstruction. The site of obstruction may be at the level of the parastomal hernia. Peritoneum: There is no intraperitoneal free air or abdominal ascites. Vasculature: The abdominal aorta is normal in course and caliber. Adenopathy: None. Pelvic viscera: The bladder, and pelvic viscera are unremarkable. Skeletal structures: No destructive osseous lesions are seen. IMPRESSION: 1. Postsurgical changes of a colectomy with a right lower quadrant ileostomy 2. Right lower quadrant parastomal hernia 3. Mildly dilated fluid-filled small bowel loops with normal caliber distal small bowel. The findings are suggestive of an early/partial small bowel obstruction with a suspected transition zone near the level of the parastomal hernia. 4. Small left pleural effusion and trace right pleural effusion. Septal edema. ACT 112: Negative or not required by law. Electronically signed by: Thai Kohli M.D. 06/26/2020 1:[address] 06/26/20 12:10 CT chest diagnostic wo con CT DOSE: 1166.01 mGy.cm CLINICAL HISTORY: 80 years-old Female with Pt c/o Rt sided back pain. Acute chest with right-sided back pain TECHNIQUE: Multiaxial CT images of the chest were performed without contrast. A dose lowering technique was utilized adhering to the principles of ALARA. COMPARISON: CT abdomen and pelvis of same day, chest CT 04/30/2020 FINDINGS: Thyroid goiter. Unchanged mediastinal adenopathy with paratracheal lymph nodes again seen measuring up to 1.3 cm in short axis. Moderate cardiomegaly with moderate to extensive coronary artery calcifications. No pericardial effusion. No thoracic aortic aneurysm right IJ [id number] catheter distal tip terminates within the mid SVC. Small right with loculated small to moderate left pleural effusions are similar to slightly decreased in size from comparison. Intralobular septal thickening. There are new bibasilar predominant groundglass and reticular nodular opacities. Dependent consolidation suggests atelectasis. Bronchial wall thickening suggestive of bronchitis. Tracheobronchial secretions with bibasilar mucous plugging. Subsegmental millimeter nodule of the right lung apex, image 45 is unchanged. There are a few scattered calcified pulmonary granulomata. No pneumoperitoneum. No acute process of the imaged upper abdomen. Chronic scarring with calcifications of the left breast is unchanged 4.0 cm masslike area of soft tissue thickening. Degenerative changes of the shoulders and spine. 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 IMPRESSION: 1. Cardiomegaly with pulmonary edema and left greater than right pleural effusions. 2. New bibasilar predominate groundglass and reticulonodular opacities are compatible with an infectious or inflammatory process. Tracheobronchial secretions with bibasilar mucous plugging. Correlate clinically to exclude aspiration pneumonitis. 3. Unchanged mild mediastinal adenopathy. 4. Stable 9 mm subsolid nodule of the right lung apex. 5. Additional findings as above. Please refer to below summary of Fleischner criteria recommendations for follow- up of incidental CT nodules (Katarina Wu, Guidelines for management of small pulmonary nodules detected on CT scans: A statement from the [employer], Radiology 237: [phone].) SUBSOLID NODULES Solitary pure ground-glass nodule * nodule size <6 mm - no CT follow-up required * nodule size >=6 mm - follow-up CT at 6-12 months, then every 2 years until 5 years Solitary part-solid nodule * nodule size <6 mm - no CT follow-up required * nodule size >=6 mm - follow-up CT at 3-6 months. If unchanged, and solid component remains <6 mm, then annual follow-up for 5 years Multiple subsolid nodules * nodule size <6 mm - follow-up CT at 3-6 months, consider further follow-up at 2 and 4 years if stable * nodule size >=6 mm - follow-up CT at 3-6 months, subsequent management based on the most suspicious nodule(s) The above report was generated using voice recognition software. It may contain grammatical, syntax or spelling errors. ACT 112: Negative or not required by law. Electronically signed by: Rodolfo Cavanaugh M.D. 06/26/2020 1:40 PM Chest X-Ray 06/26/20 16:16 XR chest 1V portable CLINICAL HISTORY: Shortness of breath. COMPARISON STUDY: Chest CT June 26, 2020 at 1:20 PM. FINDINGS: Right subclavian [id number] is in place. Chronic deformity of the right humerus is incidentally noted. Cardiomegaly is noted. There is interstitial thickening. Trace right pleural effusion is noted. A loculated small to moderate left pleural effusion is noted. There is associated left basilar opacity. No pneumothorax is present. IMPRESSION: 1. Small to moderate loculated left pleural effusion. Trace right pleural effusion. Associated left basilar opacity. 2. Cardiomegaly with suspected mild pulmonary edema. ACT 112: Negative or not required by law. Electronically signed by: Salvatore Sanderson M.D. 06/26/2020 4:24 PM Discharge Plan Visit Data Chief Complaint: Abdominal Pain Stated Complaint: ABDOMINAL PAIN, SOB ED Provider: Shankar Lees Discharge Problem: Partial small bowel obstruction, Aspiration pneumonia, Hypoxia Forms Stand Alone Forms: [facility] Prescriptions Prescriptions: No Action bumetanide 1 mg tablet 1 mg PO DAILY RF: 0 albuterol sulfate [Ventolin HFA] 90 mcg/actuation HFA aerosol inhaler 2 - 4 puff INHALATION QID PRN (Reason: Shortness Of Breath Or Wheezing) Qty: 3 RF: 3 zafirlukast [Accolate] 20 mg tablet 20 mg PO Q12H Qty: 180 RF: 3 sodium bicarbonate 650 mg tablet 650 mg PO DAILY Qty: 60 RF: 11 brimonidine 0.2 % drops 1 drp OPB BID RF: 0 dorzolamide 2 % drops 1 drp OPR BID RF: 0 nystatin [Nystop] 100,000 unit/gram powder 1 applic EXT Q12 PRN (Reason: Skin Irritation) RF: 0 aspirin [Aspirin Low Dose] 81 mg Tablet,Delayed Release (Dr/Ec) 81 mg PO QPM RF: 0 multivitamin with minerals Tablet 1 tab PO QAM RF: 0 prednisone 5 mg Tablet 5 mg PO QAM RF: 0 pantoprazole 40 mg Tablet,Delayed Release (Dr/Ec) 40 mg PO QAM RF: 0 acetaminophen [Tylenol Extra Strength] 500 mg Tablet 500 mg PO Q6H PRN (Reason: Pain) RF: 0 diclofenac sodium [Voltaren] 1 % Gel 2 g EXT QID PRN (Reason: back pain) Qty: 100 RF: 0 Desenex 2 % Powder 1 applic EXT PRN PRN (Reason: Rash under skin folds) Qty: 43 RF: 0 hydrocodone-acetaminophen 5-325 mg tablet 1 tab PO DIRECTED PRN (Reason: Pain) RF: 0 melatonin 3 mg Tablet 6 mg PO HS RF: 0 bupropion HCl 200 mg tablet sustained-release 12 hr 200 mg PO BID RF: 0 anastrozole 1 mg Tablet 1 mg PO QPM Qty: 0 RF: 0 montelukast [Singulair] 10 mg Tablet 10 mg PO HS Qty: 0 RF: 0 ferrous sulfate 325 mg (65 mg iron) Tablet,Delayed Release (Dr/Ec) 325 mg PO BID Qty: 0 RF: 0 metoprolol tartrate 25 mg Tablet 25 mg PO BID Qty: 0 RF: 0 Anoro Ellipta 62.5-25 mcg/actuation Blister With Device 1 puff inhalation DAILY Qty: 0 RF: 0 guaifenesin [Mucinex] 600 mg Tablet Extended Release 12hr 600 mg PO Q12 Qty: 0 RF: 0 Referrals Referrals: Se Tovar MD [Primary Care Provider] - Discharge Problem: Aspiration pneumonia Qualifiers: Aspiration pneumonia type: unspecified Laterality: unspecified laterality Lung location: unspecified part of lung Qualified Code(s): J69.0 - Pneumonitis due to inhalation of food and vomit
[2020-06-26] MEDS ORDERED: NYSTATIN POWDER 15GM BTL EXT PRN (20:55)
[2020-06-26] MEDS ORDERED: ACETAMINOPHEN 325 MG TAB PO PRN (20:55)
[2020-06-26] MEDS ORDERED: MICONAZOLE NITRATE POWDER 43 GM EXT PRN (20:55)
[2020-06-26] MEDS ORDERED: ASPIRIN 81 MG ECTAB PO SCH (21:00)
[2020-06-26] MEDS ORDERED: ANASTROZOLE 1 MG TAB PO SCH (21:00)
[2020-06-26] MEDS ORDERED: MELATONIN 3 MG TAB PO SCH (21:00)
[2020-06-26] MEDS ORDERED: MONTELUKAST SODIUM 10 MG TABLET PO SCH (21:00)
[2020-06-26] MEDS: BRIMONIDINE TARTRATE 0.2% 5ML OPB SCH (21:44)
[2020-06-26] MEDS: DORZOLAMIDE HCL 2% OPH SOLN 10 ML BTL OPR SCH (21:44)
[2020-06-26] MEDS: buPROPion SR 100 MG TABCR PO SCH (21:44)
[2020-06-26] MEDS: FERROUS SULFATE 325 MG TAB PO SCH (21:45)
[2020-06-26] MEDS: guaiFENesin 600 MG TABCR PO SCH (21:46)
[2020-06-26] MEDS: METOPROLOL TARTRATE 25 MG TAB PO SCH (21:46)
[2020-06-26] MEDS ORDERED: HYDROmorphone INJ 0.5 MG/0.5 ML SYR IV PRN (21:48)
[2020-06-27 01:06] LABS: Appearance Urine Clear (Clear); Bacteria Urine Automated Negative (Negative); Bilirubin Urine Negative (Negative); Blood Urine Trace (Negative); Color Urine Yellow; Glucose Urine UA 2+ (Negative); Ketones Urine Negative (Negative); Leukocyte Esterase Urine Negative (Negative); Nitrite Urine Negative (Negative); Protein Urine 3+ (Negative); RBC Urine Automated 0-4 /hpf (0-4); Specific Gravity Urine 1.019 (1.000-1.030); Urobilinogen Urine Negative (Negative)
[2020-06-27] MEDS: HEPARIN 100 UNIT/ML 5ML FLUSH FLUSH PRN ×2 (05:34→08:36)
--- NOTE | 2020-06-27 07:49 | Surgery Progress Note ---
Date of Service June 27, 2020 Assessment & Plan (1) Partial small bowel obstruction: Since admission patient's ostomy has started functioning She states her abdominal symptoms have resolved and she denies n/v/abdominal pain She was started on clear liquids yesterday of which she has tolerated Okay to continue to advance diet as tolerates We will sign off, but please call with any questions/concerns Admission and Anticipated Discharge Date Admission Date: June 26, 2020 Supervising Physician Co-Signing Physician Notes I personally saw and evaluated the patient with Sonja Johnson PA-C and agree with the assessment and plan. 80 yo with history of multiple abdominal surgeries, resolving pSBO -Her symptoms have resolved -Advance diet as tolerated -Please call back with any questions or concerns Subjective Patient examined at bedside this AM and says she feels well. The abdominal di scomfort she came in with is gone. She has been tolerating clear liquids thus far without abdominal pain, nausea/vomiting. She states her ostomy is functioning. Physical Exam Physical Exam: awake/alert Constitutional: no acute distress Respiratory: normal respiratory effort Gastrointestinal (Abdomen): Inspection/Auscultation: abdomen not distended Percussion/Palpation: abdomen soft; abdomen nontender + ostomy in the R side of abd., liquid stool contents palpated through bag Results & Data [facility]) Vital Signs (Past 12 Hours) Vital Signs Temp Pulse Pulse Resp BP Pulse Ox Pulse Ox 06/27/20 05:00 36.4 C L 66 16 148/78 H 100 06/27/20 00:58 36.6 C 72 16 146/80 H 97 06/26/20 23:23 36.3 C L 84 18 170/80 H 98 06/26/20 22:20 77 06/26/20 20:55 36.4 C L 84 18 170/80 H 98 98 06/26/20 20:40 91 H 06/26/20 20:26 87 21 99 PG Care Time/CCT Total # of Minutes Spent Total Time Spent with Patient: Total time spent is greater than 50% in coordination of care (as documented) at patient's floor/unit and/or counseling patient: Coding Level of Care Code 13583 Subseq Hosp Care Lvl 1 Diagnoses Partial small bowel obstruction K56.600
[2020-06-27 08:08] LABS: Basophils # (auto) 0.01 K/uL (0-0.2); Basophils % (auto) 0.1 %; Hematocrit (blood only) 33.5 % (37-47); Immature Granulocytes # (auto) 0.01 K/uL (0.00-0.02); Immature Granulocytes % (auto) 0.1 %; Lymphocytes # (auto) 0.45 K/uL (1.2-3.4); Lymphocytes % (auto) 5.4 %; Mean Corpuscular Hemoglobin 31.3 pg (25-34); Mean Corpuscular Hgb Conc 32.8 g/dL (32-36); Mean Corpuscular Volume 95.2 fL (80-100); Monocytes # (auto) 0.52 K/uL (0.11-0.59); Monocytes % (auto) 6.2 %; Neutrophils # (auto) 7.39 K/uL (1.4-6.5); Neutrophils % (auto) 88.2 %; Platelet Count 174 K/uL (130-400); RDW Standard Deviation 48.6 fL (36.4-46.3); Red Blood Count 3.52 M/uL (4.2-5.4); White Blood Count 8.38 K/uL (4.8-10.8)
[2020-06-27] MEDS: buPROPion SR 100 MG TABCR PO SCH (08:26)
[2020-06-27] MEDS: DORZOLAMIDE HCL 2% OPH SOLN 10 ML BTL OPR SCH (08:26)
[2020-06-27] MEDS: BRIMONIDINE TARTRATE 0.2% 5ML OPB SCH (08:26)
[2020-06-27] MEDS: METOPROLOL TARTRATE 25 MG TAB PO SCH (08:27)
[2020-06-27] MEDS: guaiFENesin 600 MG TABCR PO SCH (08:27)
[2020-06-27] MEDS: FERROUS SULFATE 325 MG TAB PO SCH (08:27)
[2020-06-27 08:35] LABS: BUN Creatinine Ratio 13.4 (10-20); Calcium 9.1 mg/dl (8.5-10.1); Creatinine Clr Calc Pharmacy 12.2 ml/min; Est GFR (African American) 12.7; Potassium 3.6 mmol/L (3.5-5.1)
[2020-06-27] MEDS ORDERED: PANTOprazole 40 MG TAB PO SCH (09:00)
[2020-06-27] MEDS ORDERED: SODIUM BICARBONATE 650 MG TAB PO SCH (09:00)
[2020-06-27] MEDS ORDERED: NON-FORMULARY MEDICATION (Multivitamin With Minerals Tablet) PO SCH (09:00)
[2020-06-27] MEDS ORDERED: UMECLIDINIUM/VILANTEROL 62.5/25MCG 7 PUFFS/INHALER INH SCH (09:00)
[2020-06-27] MEDS ORDERED: CEROVITE ADV FORMULA TAB PO SCH (09:00)
[2020-06-27] MEDS ORDERED: predniSONE 5 MG TAB PO SCH (09:00)
--- NOTE | 2020-06-27 10:20 | Hospitalist Progress Note ---
Date of Service June 27, 2020 Assessment & Plan (1) Partial small bowel obstruction: Similar episode in June 2019 resolved with conservative management Ileostomy now appears to be working and diet has been advanced. Appreciate surgery consultation. They have now signed off. (2) Aspiration pneumonia: Pneumonitis vs. pneumonia. Procalcitonin negative No current signs of pneumonia. Antibiotics discontinued . (3) Hypoxia: Suspect secondary to aspiration when vomiting . Transient and resolved. Incentive spirometry (4) Volume overload: Suspected on admission per chest x-ray appearance but the patient states she does not feel fluid overloaded . Monitor intake and output. Will continue on usual diuretics (5) Rheumatoid arthritis: Continue prednisone 5mg PO daily. (6) Hyperlipidemia: Diet control measures (7) H/O ileostomy: Noted. Obstruction now appears to have resolved (8) Parastomal hernia: Noted (9) Diabetes mellitus, type 2: HbA1C 6.0 in April. On no home medication for this. ADA diet (10) Ulcerative colitis: Steroid-dependent (11) Hypertension: Continue her usual medications with metoprolol tartrate (12) Asthma: No acute exacerbation Continue her usual Anoro Ellipta or hospital formulary equivalent Disposition: Home today, June 27 Admission and Anticipated Discharge Date Admission Date: June 26, 2020 Subjective Alert and oriented. No distress. Her ileostomy is nonfunctional. Diet is being advanced. Chronic kidney disease stage IV is stable. Surgery has seen the patient and has signed off. Her partial small bowel obstruction has resolved. If she tolerates a regular lunch, she will be discharged home. Respiratory status is also stable. Review of Systems Review of Systems: All systems reviewed & are unremarkable except as noted in HPI & below Physical Exam Physical Exam: General-alert and oriented x3, no fevers, no chills HEENT-head atraumatic and normocephalic, pupils equal and reactive to light, extraocular muscles intact Neck-no lymphadenopathy or thyromegaly, trachea midline Chest-clear to auscultation percussion. No rales wheezing or rhonchi Cardiac-regular rate and rhythm, normal S1 and S2, no murmurs Abdomen-normal bowel sounds, nontender, no hepatosplenomegaly. Functioning ileostomy Extremities-no cyanosis, clubbing, or edema Neuro-cranial nerves II through XII intact, motor and sensory function within normal limits, strength symmetrical , no focal deficits Psych-normal affect, normal mood Results & Data Results & Data ([facility]) Vital Signs (Past 12 Hours) Vital Signs Temp Pulse Pulse Resp BP Pulse Ox 06/27/20 05:00 36.4 C L 66 16 148/78 H 100 06/27/20 00:58 36.6 C 72 16 146/80 H 97 06/26/20 23:23 36.3 C L 84 18 170/80 H 98 06/26/20 22:20 77 Laboratory Results 06/27/20 07:27 06/27/20 07:27 PG Care Time/CCT Total # of Minutes Spent Total Time Spent with Patient: Total time spent is greater than 50% in coordination of care (as documented) at patient's floor/unit and/or counseling patient: Coding Level of Care Code 58455 Subseq Obs Care Lvl 3 Diagnoses Partial small bowel obstruction K56.600 Aspiration pneumonia J69.0 Aspiration pneumonia type: unspecified Laterality: unspecified laterality Lung location: unspecified part of lung Hypoxia R09.02 Volume overload E87.70 Rheumatoid arthritis M06.9 Rheumatoid arthritis location: unspecified site Rheumatoid factor presence: unspecified presence Hyperlipidemia E78.5 H/O ileostomy Z98.890 Parastomal hernia K43.5 Diabetes mellitus, type 2 E11.69 Diabetes mellitus complication status: with other specified complication Diabetes mellitus longterm insulin use: unspecified longterm insulin use status Ulcerative colitis K51.919 Digestive disease complication type: unspecified complication Ulcerative colitis location: unspecified ulcerative colitis location Hypertension I10 Asthma J45.909 (1) Aspiration pneumonia Aspiration pneumonia type: unspecified Laterality: unspecified laterality Lung location: unspecified part of lung Qualified Code(s): J69.0 - Pneumonitis due to inhalation of food and vomit (2) Rheumatoid arthritis Rheumatoid arthritis location: unspecified site Rheumatoid factor presence: unspecified presence Qualified Code(s): M06.9 - Rheumatoid arthritis, unspecified (3) Diabetes mellitus, type 2 Diabetes mellitus complication status: with other specified complication Diabetes mellitus long filler cigar roller machine insulin use: unspecified long filler cigar roller machine insulin use status Qualified Code(s): E11.69 - Type 2 diabetes mellitus with other specified complication (4) Ulcerative colitis Digestive disease complication type: unspecified complication Ulcerative colitis location: unspecified ulcerative colitis location Qualified Code(s): K51.919 - Ulcerative colitis, unspecified with unspecified complications
--- NOTE | 2020-06-27 13:13 | Discharge Summary ---
Date of Service June 27, 2020 Admission HPI Per Admitting Provider Florencia Elise is an 80 year old female who presents to the ER with epigastric pain and shortness of breath. She reports increasing epigastric pain and pain around her ileostomy site over the last 24 hours. Associated nausea and vomiting. Previous episode of small bowel obstruction in June 2019 which was treated conservatively and related to her parastomal hernia. Initially the pain around the ileostomy site was cramping and high output decreased however she reports significant relief in her pain after ostomy began to have a normal output while in the emergency room. Pain is currently mild and she is not taking any medication for her pain. She does note taking occasional hydrocodone chronically for her back pain. She also notes she is more short of breath than usual since vomiting. No chest pain. No increased weight or increased leg swelling. No palpitations, claudication, orthopnea or PND. In the ER CT abdomen pelvis was concerning for partial small bowel obstruction, CT chest was concerning for possible tracheobronchial mucous plugging and possible pneumonia. Procalcitonin negative, neutrophils elevated at 8.79. She was given 1 dose of IV ceftriaxone for pneumonia. She does not usually wear oxygen at home and has been hypoxic in the emergency room requiring 2 L of oxygen at rest. She was referred to medicine for admission ongoing management of aspiration pneumonia and hypoxia. Principal Diagnosis Partial small bowel obstruction Discharge Data Allergies Allergy/AdvReac Type Severity Reaction Status Date / Time bee venom protein (honey bee) Allergy Severe ANAPHYLAXIS Verified 06/24/20 14:17 cefaclor Allergy Severe stiff and Verified 06/24/20 14:17 sore muscles-PT DENIES lisinopril Allergy Severe tongue Verified 06/24/20 14:17 swelling diltiazem Allergy Intermediate rash Verified 06/24/20 14:17 Penicillins Allergy Mild RASH Verified 06/24/20 14:17 tetracycline Allergy Mild UNK-PT Verified 06/24/20 14:17 DENIES amoxicillin Allergy Unknown RASH Verified 06/24/20 14:17 cefuroxime Allergy Unknown TAST Verified 06/24/20 14:17 clavulanic acid Allergy Unknown ITCHING Verified 06/24/20 14:17 levofloxacin Allergy Unknown NAUSEA, Verified 06/24/20 14:17 DIZZINESS baclofen AdvReac Severe Severe Verified 06/24/20 14:17 sedation alendronate sodium AdvReac Intermediate FELT SICK Verified 06/24/20 14:17 ciprofloxacin AdvReac Intermediate LEGS ARMS Verified 06/24/20 14:17 STIFF, PAINFUL metformin AdvReac Intermediate CAUSED Verified 06/24/20 14:17 BACK PAIN AND INC. LACTIC ACID LEVELS tramadol AdvReac Intermediate DIZZINESS Verified 06/24/20 14:17 adhesive AdvReac Mild redness Verified 06/24/20 14:17 mercaptopurine AdvReac Mild MADE HER Verified 06/24/20 14:17 VERY ILL olmesartan AdvReac Mild HEADACHE Verified 06/24/20 14:17 Sulfa (Sulfonamide AdvReac Mild CAUSED Verified 06/24/20 14:17 Antibiotics) DIZZINESS sulfamethoxazole AdvReac Mild CAUSED Verified 06/24/20 14:17 DIZZINESS trimethoprim AdvReac Mild BACTRIM Verified 06/24/20 14:17 CAUSED DIZZINESS aspirin AdvReac Unknown CAUSES Verified 06/24/20 14:17 BRUISING Consultations 06/26/20 14:05 ED Decision to Admit Stat 06/26/20 15:08 Consult General Surgery Routine Ordered Studies 06/26/20 12:10 CT abd pelvis wo con Stat CT chest diagnostic wo con Stat Hospital Course (1) Partial small bowel obstruction: Similar episode in June 2019 resolved with conservative management Ileostomy now appears to be working and diet has been advanced. Appreciate surgery consultation. They have now signed off. (2) Aspiration pneumonia: Pneumonitis vs. pneumonia. Procalcitonin negative No current signs of pneumonia. Antibiotics discontinued . (3) Hypoxia: Suspect secondary to aspiration when vomiting . Transient and resolved. Incentive spirometry (4) Volume overload: Suspected on admission per chest x-ray appearance but the patient states she does not feel fluid overloaded . Monitor intake and output. Will continue on usual diuretics (5) Rheumatoid arthritis: Continue prednisone 5mg PO daily. (6) H/O ileostomy: Noted. Obstruction now appears to have resolved (7) Parastomal hernia: Noted (8) Diabetes mellitus, type 2: HbA1C 6.0 in April. On no home medication for this. Monitor glucose with AM labs. (9) Ulcerative colitis: Steroid-dependent (10) Hypertension: Continue her usual medications with metoprolol tartrate (11) Asthma: No acute exacerbation Continue her usual Anoro Ellipta or hospital formulary equivalent Continue montelukast 10 mg p.o. at bedtime (12) Chronic kidney disease, stage V: At baseline. Monitor fluid status with strict I's and O's. Continue sodium bicarbonate 650 mg p.o. daily Total Time Total Time Spent Total Time Spent (In Minutes): 35 minutes Total Time Includes: Examination of the Patient, Discharge Planning and Medication Reconciliation Discharge Plan Discharge Items Patient Disposition: Home - Self-Care Reason For Visit: HYPOXIA ASPIRATION PNEUMONIA PARTIAL SMALL BOWEL O Discharge Diagnosis: Partial small bowel obstruction Activity: Resume your previous activity Non-emergency contact: Primary Care Provider Call non-emergency contact if: you have any medication questions Follow-up/Referrals: Se Tovar MD [Primary Care Provider] - 07/02/20 10:10 am (This appointment will be with Dr. Esteban) Diet: Carb Consistent or DM2 and Low Sodium (2gm) Addtl Attending Provider Instructions: All medications remain the same Pending Studies at Discharge: No Stand-Alone Forms: [employer], Smoking Cessation Medications and DC Order Prescriptions: Continued bumetanide 1 mg tablet 1 mg PO DAILY RF: 0 albuterol sulfate [Ventolin HFA] 90 mcg/actuation HFA aerosol inhaler 2 - 4 puff INHALATION QID PRN (Reason: Shortness Of Breath Or Wheezing) Qty: 3 RF: 3 zafirlukast [Accolate] 20 mg tablet 20 mg PO Q12H Qty: 180 RF: 3 sodium bicarbonate 650 mg tablet 650 mg PO DAILY Qty: 60 RF: 11 brimonidine 0.2 % drops 1 drp OPB BID RF: 0 dorzolamide 2 % drops 1 drp OPR BID RF: 0 nystatin [Nystop] 100,000 unit/gram powder 1 applic EXT Q12 PRN (Reason: Skin Irritation) RF: 0 aspirin [Aspirin Low Dose] 81 mg Tablet,Delayed Release (Dr/Ec) 81 mg PO QPM RF: 0 multivitamin with minerals Tablet 1 tab PO QAM RF: 0 prednisone 5 mg Tablet 5 mg PO QAM RF: 0 pantoprazole 40 mg Tablet,Delayed Release (Dr/Ec) 40 mg PO QAM RF: 0 acetaminophen [Tylenol Extra Strength] 500 mg Tablet 500 mg PO Q6H PRN (Reason: Pain) RF: 0 diclofenac sodium [Voltaren] 1 % Gel 2 g EXT QID PRN (Reason: back pain) Qty: 100 RF: 0 Desenex 2 % Powder 1 applic EXT PRN PRN (Reason: Rash under skin folds) Qty: 43 RF: 0 hydrocodone-acetaminophen 5-325 mg tablet 1 tab PO DIRECTED PRN (Reason: Pain) RF: 0 melatonin 3 mg Tablet 6 mg PO HS RF: 0 bupropion HCl 200 mg tablet sustained-release 12 hr 200 mg PO BID RF: 0 anastrozole 1 mg Tablet 1 mg PO QPM Qty: 0 RF: 0 montelukast [Singulair] 10 mg Tablet 10 mg PO HS Qty: 0 RF: 0 ferrous sulfate 325 mg (65 mg iron) Tablet,Delayed Release (Dr/Ec) 325 mg PO BID Qty: 0 RF: 0 metoprolol tartrate 25 mg Tablet 25 mg PO BID Qty: 0 RF: 0 Anoro Ellipta 62.5-25 mcg/actuation Blister With Device 1 puff inhalation DAILY Qty: 0 RF: 0 guaifenesin [Mucinex] 600 mg Tablet Extended Release 12hr 600 mg PO Q12 Qty: 0 RF: 0 Discharge Orders: Discharge Order (Routine); Ordered 06/27/20 Ordered By: Zoran Madrid Admission Data Admit Date/Time: 06/26/20 15:42 Attending Provider: Zoran Madrid Admit Provider: Se Balderas Primary Care Provider: Se Tovar Other Providers: Se Balderas ; Kings Sen Other Interventions: Discharge Summary Assessment (RN) Last Done: 06/27/20 12:01 Coding Level of Care Code D/C Day Management >30 mins Diagnoses Partial small bowel obstruction K56.600 Aspiration pneumonia J69.0 Aspiration pneumonia type: unspecified Laterality: unspecified laterality Lung location: unspecified part of lung Hypoxia R09.02 Volume overload E87.79 Hypervolemia type: other Rheumatoid arthritis M06.9 Rheumatoid arthritis location: unspecified site Rheumatoid factor presence: unspecified presence H/O ileostomy Z98.890 Parastomal hernia K43.5 Diabetes mellitus, type 2 E11.69 Diabetes mellitus complication status: with other specified complication Diabetes mellitus residential insulin use: unspecified residential insulin use status Ulcerative colitis K51.919 Digestive disease complication type: unspecified complication Ulcerative colitis location: unspecified ulcerative colitis location Hypertension I10 Hypertension type: essential hypertension Asthma J45.40 Asthma severity: moderate Asthma persistence: persistent Asthma complication type: uncomplicated Chronic kidney disease, stage V N18.5
[2020-06-27] MEDS ORDERED: cefTRIAXone SODIUM 2,000 MG in DEXTROSE 5% 50 ML IV SCH (14:00)
== END 2020-06-27 17:39 | disposition home or self-care (01) | DRG 393 ==
LOC: ED 10:43 → SUATTDRO 15:42 → 2W 15:42

== ENCOUNTER 2020-06-30 16:10 | Inpatient (IN) ==
[2020-06-30] MEDS ORDERED: ALBUT/IPRATROP 3MG/0.5MG NEB 3 ML VIAL NEB STA (17:01)
[2020-06-30] MEDS ORDERED: MoRPHine SULFATE 2 MG/ML CARP IV STA (17:05)
--- NOTE | 2020-06-30 17:13 | Emergency Department Note ---
History of Present Illness General Chief complaint: Chest Pain Stated complaint: PAIN IN UPPER ABD/CHEST ON LEFT SIDE-SHOULDER PAIN Time Seen by Provider: 06/30/20 16:52 Source: patient Mode of arrival: ambulatory Limitations: no limitations History of Present Illness Provider complaint: Chest pain Maximum Pain Intensity: 8 This is an 80-year-old male who presents to the ED with a chief complaint of left-sided chest pain that comes and goes every 5 minutes or so. The patient states that this pain radiates into the left shoulder and sometimes into the back of the neck and head. She currently is not having that pain. The patient states that she also has a ball-like epigastric pain that is constant. Her symptoms started around 9 AM this morning. She reports no change in her baseli ne shortness of breath. She has history of COPD. No nausea or vomiting. No recent illness. No additional complaints at this time. Home Medications Medication Instructions Recorded Confirmed Type aspirin [Aspirin Low Dose] 81 mg PO QPM 11/22/17 06/30/20 History multivitamin with minerals 1 tab PO QAM 11/22/17 06/30/20 History pantoprazole 40 mg PO QAM 11/22/17 06/30/20 History prednisone 5 mg PO QAM 11/22/17 06/30/20 History brimonidine 1 drp OPB BID 06/22/18 06/30/20 History dorzolamide 1 drp OPR BID 06/22/18 06/30/20 History albuterol sulfate 90 mcg/actuation 2 - 4 puff INHALATION QID PRN #3 02/15/19 0 06/30/20 Rx aerosol inhaler inhaler acetaminophen [Tylenol Extra 500 mg PO Q6H PRN 08/25/19 06/30/20 History Strength] Desenex 1 applic EXT PRN PRN #43 gm 08/31/19 06/30/20 Rx diclofenac sodium [Voltaren] 2 g EXT QID PRN #100 gm 08/31/19 06/30/20 Rx sodium bicarbonate 650 mg tablet 650 mg PO DAILY #60 tab 01/12/20 06/30/20 Rx nystatin [Nystop] 1 applic EXT Q12 PRN 03/01/20 06/30/20 History bupropion HCl 200 mg PO BID 04/29/20 06/30/20 History hydrocodone-acetaminophen 1 tab PO DIRECTED PRN 04/29/20 06/30/20 History melatonin 6 mg PO HS 04/29/20 06/30/20 History Anoro Ellipta 1 puff INHALATION DAILY #0 ea 05/07/20 06/30/20 Rx anastrozole 1 mg PO QPM #0 tab 05/07/20 06/30/20 Rx ferrous sulfate 325 mg PO BID #0 tab 05/07/20 06/30/20 Rx guaifenesin [Mucinex] 600 mg PO Q12 #0 tab 05/07/20 06/30/20 Rx metoprolol tartrate 25 mg PO BID #0 tab 05/07/20 06/30/20 Rx montelukast [Singulair] 10 mg PO HS #0 tab 05/07/20 06/30/20 Rx zafirlukast 20 mg tablet 20 mg PO Q12H #180 tab 06/17/20 06/30/20 Rx bumetanide 1 mg tablet 1 mg PO DAILY tab 06/24/20 06/30/20 History Allergies Allergy/AdvReac Type Severity Reaction Status Date / Time bee venom protein (honey bee) Allergy Severe ANAPHYLAXIS Verified 06/30/20 17:51 cefaclor Allergy Severe stiff and Verified 06/30/20 17:51 sore muscles-PT DENIES lisinopril Allergy Severe tongue Verified 06/30/20 17:51 swelling diltiazem Allergy Intermediate rash Verified 06/30/20 17:51 Penicillins Allergy Mild RASH Verified 06/30/20 17:51 tetracycline Allergy Mild UNK-PT Verified 06/30/20 17:51 DENIES amoxicillin Allergy Unknown RASH Verified 06/30/20 17:51 cefuroxime Allergy Unknown TAST Verified 06/30/20 17:51 clavulanic acid Allergy Unknown ITCHING Verified 06/30/20 17:51 levofloxacin Allergy Unknown NAUSEA, Verified 06/30/20 17:51 DIZZINESS baclofen AdvReac Severe Severe Verified 06/30/20 17:51 sedation alendronate sodium AdvReac Intermediate FELT SICK Verified 06/30/20 17:51 ciprofloxacin AdvReac Intermediate LEGS ARMS Verified 06/30/20 17:51 STIFF, PAINFUL metformin AdvReac Intermediate CAUSED Verified 06/30/20 17:51 BACK PAIN AND INC. LACTIC ACID LEVELS tramadol AdvReac Intermediate DIZZINESS Verified 06/30/20 17:51 adhesive AdvReac Mild redness Verified 06/30/20 17:51 mercaptopurine AdvReac Mild MADE HER Verified 06/30/20 17:51 VERY ILL olmesartan AdvReac Mild HEADACHE Verified 06/30/20 17:51 Sulfa (Sulfonamide AdvReac Mild CAUSED Verified 06/30/20 17:51 Antibiotics) DIZZINESS sulfamethoxazole AdvReac Mild CAUSED Verified 06/30/20 17:51 DIZZINESS trimethoprim AdvReac Mild BACTRIM Verified 06/30/20 17:51 CAUSED DIZZINESS aspirin AdvReac Unknown CAUSES Verified 06/30/20 17:51 BRUISING Past Med/Surg History Medical History Acute osteomyelitis (06/05/01) "MRSA of the thoracic spine " On 02/05/12 10:49 Wilfredo Melendez wrote "MRSA of the thoracic spine " Bilateral interstitial pneumonia Calcified granuloma of lung CHF (congestive heart failure) Chronic back pain Chronic kidney disease, stage V CKD (chronic kidney disease) COPD (chronic obstructive pulmonary disease) Deep vein thrombosis L LEG Diabetes mellitus, type 2 Dyspnea Elevated troponin Fibromyalgia GERD (gastroesophageal reflux disease) Glaucoma BILT EYES Hypercalcemia Hyperglycemia due to diabetes mellitus Hypertensive urgency Parapneumonic effusion Pleural effusion on left Pleural effusion, right Pneumonia, organism unspecified (02/05/12) Rheumatoid arthritis Secondary pulmonary hypertension Spinal stenosis Stroke 07/2017--DIFFICULTY WALKING Trigeminal neuralgia Ulcerative colitis Vitamin D deficiency Volume overload Surgical History H/O bilateral cataract extraction H/O ileostomy H/O right inguinal hernia repair History of appendectomy History of bowel resection 1993 WITH ILEOSTOMY @ [facility] [place] History of breast biopsy LEFT MALIGNANT X2 History of colonoscopy History of esophagogastroduodenoscopy (EGD) History of gastric surgery 2012---[facility] ON STOMACH WALL History of lumpectomy of left breast X2 2005 WITH LYMPH NODE REMOVAL, 2012 History of tooth extraction ALL TEETH Family History Brother Family history of diabetes mellitus 2 BROTHERS Mother Family hx of colon cancer Father Family hx of colon cancer Social History Smoking Status: Never smoker Tobacco Type: Cigarettes Second Hand Exposure: No; Hx Alcohol Use: No Hx Substance Use: No Preferred Language: Stateless Communication Ability: Effective Visual Impairment: Limited Hearing Ability: Hard of Hearing 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 Feels Safe at Home: Yes Diet Comment: stated she tries, but isn't always good about her diet during the past year weight has: decreased > 10 lbs Assistive Devices: Glasses and Walker Review of Systems A total of 10 systems reviewed and were otherwise negative Physical Exam Vital Signs Vital Signs - 24 hr 06/30/20 16:15 06/30/20 17:19 06/30/20 17:20 Temperature 36.6 C Temperature Source Temporal Artery Scan Pulse Rate 69 71 71 Pulse Rate [Left Finger] Pulse Rate from SpO2 Sensor 71 71 Respiratory Rate 18 21 Respiratory Effort / Characteristics Non-Labored Respiratory Depth Normal Blood Pressure 172/84 H Blood Pressure [Left Arm] Blood Pressure Mean 113 Blood Pressure Mean [Left Arm] Pulse Oximetry 94 100 99 Oxygen Delivery Method Room Air Oxygen Flow Rate Sepsis Recent Fever Within 48 Hours No Sepsis New/Unexplained Change in Mental Status N/A Sepsis Action Taken by Nursing No Action Required 06/30/20 17:21 06/30/20 17:30 06/30/20 17:39 Temperature Temperature Source Pulse Rate 73 76 Pulse Rate [Left Finger] 72 Pulse Rate from SpO2 Sensor 75 76 Respiratory Rate 18 18 Respiratory Effort / Characteristics Non-Labored Spontaneous Respiratory Depth Blood Pressure 207/126 H Blood Pressure [Left Arm] Blood Pressure Mean 153 Blood Pressure Mean [Left Arm] Pulse Oximetry 100 95 96 Oxygen Delivery Method Nasal Cannula Oxygen Flow Rate 3 Sepsis Recent Fever Within 48 Hours Sepsis New/Unexplained Change in Mental Status Sepsis Action Taken by Nursing 06/30/20 17:40 06/30/20 17:50 06/30/20 18:00 Temperature Temperature Source Pulse Rate 74 75 75 Pulse Rate [Left Finger] Pulse Rate from SpO2 Sensor 74 75 74 Respiratory Rate 21 21 Respiratory Effort / Characteristics Respiratory Depth Blood Pressure Blood Pressure [Left Arm] Blood Pressure Mean Blood Pressure Mean [Left Arm] Pulse Oximetry 93 94 93 Oxygen Delivery Method Oxygen Flow Rate Sepsis Recent Fever Within 48 Hours Sepsis New/Unexplained Change in Mental Status Sepsis Action Taken by Nursing 06/30/20 18:10 06/30/20 18:20 06/30/20 18:30 Temperature Temperature Source Pulse Rate 75 74 77 Pulse Rate [Left Finger] Pulse Rate from SpO2 Sensor 75 74 77 Respiratory Rate 21 20 24 Respiratory Effort / Characteristics Respiratory Depth Blood Pressure Blood Pressure [Left Arm] Blood Pressure Mean Blood Pressure Mean [Left Arm] Pulse Oximetry 93 93 92 Oxygen Delivery Method Oxygen Flow Rate Sepsis Recent Fever Within 48 Hours Sepsis New/Unexplained Change in Mental Status Sepsis Action Taken by Nursing 06/30/20 18:41 06/30/20 18:50 06/30/20 19:00 Temperature Temperature Source Pulse Rate 85 77 76 Pulse Rate [Left Finger] Pulse Rate from SpO2 Sensor 77 76 Respiratory Rate 23 22 Respiratory Effort / Characteristics Respiratory Depth Blood Pressure 189/92 H Blood Pressure [Left Arm] Blood Pressure Mean 124 Blood Pressure Mean [Left Arm] Pulse Oximetry 95 93 Oxygen Delivery Method Oxygen Flow Rate Sepsis Recent Fever Within 48 Hours Sepsis New/Unexplained Change in Mental Status Sepsis Action Taken by Nursing 06/30/20 19:10 06/30/20 19:20 06/30/20 19:30 Temperature Temperature Source Pulse Rate 75 77 75 Pulse Rate [Left Finger] Pulse Rate from SpO2 Sensor 75 77 75 Respiratory Rate 21 22 20 Respiratory Effort / Characteristics Respiratory Depth Blood Pressure Blood Pressure [Left Arm] 170/90 H Blood Pressure Mean Blood Pressure Mean [Left Arm] 116 Pulse Oximetry 93 94 93 Oxygen Delivery Method Nasal Cannula Oxygen Flow Rate 2 Sepsis Recent Fever Within 48 Hours Sepsis New/Unexplained Change in Mental Status Sepsis Action Taken by Nursing 06/30/20 19:40 06/30/20 19:50 06/30/20 20:00 Temperature Temperature Source Pulse Rate 75 73 73 Pulse Rate [Left Finger] Pulse Rate from SpO2 Sensor 73 73 72 Respiratory Rate 24 20 19 Respiratory Effort / Characteristics Respiratory Depth Blood Pressure Blood Pressure [Left Arm] Blood Pressure Mean Blood Pressure Mean [Left Arm] Pulse Oximetry 95 94 94 Oxygen Delivery Method Nasal Cannula Nasal Cannula Nasal Cannula Oxygen Flow Rate 2 2 2 Sepsis Recent Fever Within 48 Hours Sepsis New/Unexplained Change in Mental Status Sepsis Action Taken by Nursing CONSTITUTIONAL/VITAL SIGNS: Reviewed / noted above. GENERAL: Non-toxic in appearance. INTEGUMENTARY: Warm, dry, and [place]. HEAD: Normocephalic. EYES: without scleral icterus or trauma. ENT/OROPHARYNX: clear and moist. LYMPHADENOPATHY/NECK: Is supple without lymphadenopathy or meningismus. RESPIRATORY: Lungs reveal some wheezing on the left side. CARDIOVASCULAR: Regular rate and rhythm. GI/ABDOMEN: Soft and nontender. No organomegaly or pulsatile mass. No rebound or guarding. Normal bowel sounds. EXTREMITIES: Warm and well perfused. BACK: No CVA tenderness. NEUROLOGICAL: Intact without focal deficits. PSYCHIATRIC: normal affect. MUSCULOSKELETAL: Normally developed with good muscle tone. TRIAGE NURSING DOCUMENTATION REVIEWED. Course Administered Medications Discontinued Medications Albuterol (Albut/Ipratrop 3mg/0.5mg Neb 3 Ml Vial) 3 ml NEB NOW STA Stop: 06/30/20 17:02 Last Admin: 06/30/20 17:21 Dose: 3 ml Documented by: [id number] Furosemide (Furosemide 40 Mg/4 Ml Vial) 40 mg IV NOW STA Stop: 06/30/20 19:53 Last Admin: 06/30/20 20:20 Dose: Not Given Documented by: [id number] Bumetanide 2 mg/ Syringe 8 mls @ 4 mls/min IV ONE ONE Stop: 06/30/20 20:20 Last Admin: 06/30/20 20:59 Dose: 4 mls/min Documented by: [id number] Morphine Sulfate (Morphine Sulfate 2 Mg/Ml Carp) 2 mg IV NOW STA Stop: 06/30/20 17:06 Last Admin: 06/30/20 17:31 Dose: Not Given Documented by: [id number] Morphine Sulfate (Morphine Sulfate 2 Mg/Ml Carp) 2 mg IM NOW STA Stop: 06/30/20 17:30 Last Admin: 06/30/20 17:33 Dose: 2 mg Documented by: [id number] Medical Decision Making Differential Diagnosis The differential that was considered includes acute myocardial infarction, acute coronary syndrome, myocarditis, pericarditis, pericardial effusions /tamponade, esophageal perforation, thoracic aortic dissection, pulmonary embolism, pneumonia, pneumothorax, pancreatitis, shingles, acute cholecystitis, perforated abdominal viscus. Medical Records Attestation: I reviewed the patient's medical records. Home Medications Current Medication List: was personally reviewed by me Laboratory Data Attestation: I reviewed the patient's lab results. Result diagrams: 06/30/20 17:15 06/30/20 17:15 Lab Results 06/30/20 06/30/20 06/30/20 Range/Units 17:15 17:15 18:46 WBC 13.97 H (4.8-10.8) K/uL RBC 3.98 L (4.2-5.4) M/uL Hgb 12.3 (12.0-16.0) g/dL Hct 38.3 (37-47) % MCV 96.2 (80-100) fL MCH 30.9 (25-34) pg MCHC 32.1 (32-36) g/dL RDW Std Deviation 49.5 H (36.4-46.3) fL RDW Coeff of Michelle 14.0 (11.5-14.5) % Plt Count 153 (130-400) K/uL MPV 10.9 H (7.4-10.4) fL Immature Gran % (Auto) 0.3 % Neut % (Auto) 87.6 % Lymph % (Auto) 5.6 % [place] % (Auto) 5.6 % Eos % (Auto) 0.8 % Baso % (Auto) 0.1 % Neut # (Auto) 12.24 H (1.4-6.5) K/uL Lymph # (Auto) 0.78 L (1.2-3.4) K/uL [place] # (Auto) 0.78 H (0.11-0.59) K/uL Eos # (Auto) 0.11 (0-0.5) K/uL Baso # (Auto) 0.02 (0-0.2) K/uL Immature Gran # (Auto) 0.04 H (0.00-0.02) K/uL Sodium 139 (136-145) mmol/L Potassium 3.9 (3.5-5.1) mmol/L Chloride 108 H (98-107) mmol/L Carbon Dioxide 20 L (21-32) mmol/L Anion Gap 11.0 (3-11) BUN 52 H (7-18) mg/dl Creatinine 3.68 H (0.6-1.2) mg/dl Est Cr Clr Drug Dosing Not Reportable Est GFR ( Amer) 12.6 Est GFR (Non-Af Amer) 10.8 BUN/Creatinine Ratio 14.1 (10-20) Glucose 201 H (70-99) mg/dl Calcium 8.6 (8.5-10.1) mg/dl Total Bilirubin 0.4 (0.2-1) mg/dl AST 16 (15-37) U/L ALT 24 (12-78) U/L Alkaline Phosphatase 82 (45-117) U/L Troponin I < 0.015 (0-0.045) ng/ml Total Protein 6.2 L (6.4-8.2) gm/dl Albumin 3.2 L (3.4-5.0) gm/dl Globulin 3.0 (2.5-4.0) gm/dl Albumin/Globulin Ratio 1.1 (0.9-2) Lipase 47 L (73-393) U/L Blood Type A Negative Antibody Screen NEGATIVE Imaging Data Radiologist's Impression: Chest X-Ray 06/30/20 16:53 XR chest 1V portable HISTORY: 80 years-old Female Chest Pain . Atypical chest pain COMPARISON: Chest radiograph 06/26/2020 TECHNIQUE: Portable AP view of the chest FINDINGS: Cardiac silhouette is enlarged. Right IJ Fkhsqz-[id number] catheter is unchanged. Pulmonary vascular congestion with interstitial coarsening. Small right with [id number] loculated left pleural effusion. Left basilar opacities redemonstrated. There is no significant change from comparison. Degenerative changes of the shoulders and spine with chronic right proximal humeral ununited fracture. IMPRESSION: 1. Cardiomegaly with pulmonary edema. 2. Unchanged small right with small to moderate loculated left pleural effusions. 3. Unchanged left lung base opacities suggestive of atelectasis versus pneumonia. ACT 112: Negative or not required by law. The above report was generated using voice recognition software. It may contain grammatical, syntax or spelling errors. Electronically signed by: Rodolfo Cavanaugh M.D. 06/30/2020 5:12 PM ECG Data Attestation: I personally reviewed and interpreted this ECG as follows: Indication: + SOB/dyspnea Rate (beats per minute): 75 Rhythm: + normal sinus ECG Intervals/blocks: + Normal QT-c ECG ST segments: no ST elevation ECG Findings: no PVCs MDM Narrative Patient presents with a intermittent left-sided chest pain that radiates into her left shoulder and left neck that is currently not present on my evaluation. That pain comes and goes. She also reports epigastric abdominal pain. She has some wheezing on her left lung on exam. The patient's pulse ox on room air was 89 to 90% on my evaluation. She was placed on 2 L of nasal cannula oxygen. Her chest x-ray suggest some congestive heart failure and pulmonary edema. She has got chronic renal disease. Her white blood cell count was slightly elevated at 13.97. The patient was given IV Bumex here. She was also given her oral metoprolol. She will be seen by the hospitalist service for further patient evaluation and care. She was on 2 L of oxygen and maintaining saturations in the mid 90s. Impression & Plan CHF (congestive heart failure), Pulmonary edema, Acute dyspnea Discharge Plan Visit Data Chief Complaint: Chest Pain Stated Complaint: PAIN IN UPPER ABD/CHEST ON LEFT SIDE-SHOULDER PAIN ED Provider: Shankar Torrez Discharge Problem: CHF (congestive heart failure), Pulmonary edema, Acute dyspnea Patient Disposition: Home - Self-Care Forms Stand Alone Forms: [facility], Virtual Emergency Department, Important Visit Information Prescriptions Prescriptions: No Action bumetanide 1 mg tablet 1 mg PO DAILY RF: 0 albuterol sulfate [Ventolin HFA] 90 mcg/actuation HFA aerosol inhaler 2 - 4 puff INHALATION QID PRN (Reason: Shortness Of Breath Or Wheezing) Qty: 3 RF: 3 zafirlukast [Accolate] 20 mg tablet 20 mg PO Q12H Qty: 180 RF: 3 sodium bicarbonate 650 mg tablet 650 mg PO DAILY Qty: 60 RF: 11 brimonidine 0.2 % drops 1 drp OPB BID RF: 0 dorzolamide 2 % drops 1 drp OPR BID RF: 0 nystatin [Nystop] 100,000 unit/gram powder 1 applic EXT Q12 PRN (Reason: Skin Irritation) RF: 0 aspirin [Aspirin Low Dose] 81 mg Tablet,Delayed Release (Dr/Ec) 81 mg PO QPM RF: 0 multivitamin with minerals Tablet 1 tab PO QAM RF: 0 prednisone 5 mg Tablet 5 mg PO QAM RF: 0 pantoprazole 40 mg Tablet,Delayed Release (Dr/Ec) 40 mg PO QAM RF: 0 acetaminophen [Tylenol Extra Strength] 500 mg Tablet 500 mg PO Q6H PRN (Reason: Pain) RF: 0 diclofenac sodium [Voltaren] 1 % Gel 2 g EXT QID PRN (Reason: back pain) Qty: 100 RF: 0 Desenex 2 % Powder 1 applic EXT PRN PRN (Reason: Rash under skin folds) Qty: 43 RF: 0 hydrocodone-acetaminophen 5-325 mg tablet 1 tab PO DIRECTED PRN (Reason: Pain) RF: 0 melatonin 3 mg Tablet 6 mg PO HS RF: 0 bupropion HCl 200 mg tablet sustained-release 12 hr 200 mg PO BID RF: 0 anastrozole 1 mg Tablet 1 mg PO QPM Qty: 0 RF: 0 montelukast [Singulair] 10 mg Tablet 10 mg PO HS Qty: 0 RF: 0 ferrous sulfate 325 mg (65 mg iron) Tablet,Delayed Release (Dr/Ec) 325 mg PO BID Qty: 0 RF: 0 metoprolol tartrate 25 mg Tablet 25 mg PO BID Qty: 0 RF: 0 Anoro Ellipta 62.5-25 mcg/actuation Blister With Device 1 puff inhalation DAILY Qty: 0 RF: 0 guaifenesin [Mucinex] 600 mg Tablet Extended Release 12hr 600 mg PO Q12 Qty: 0 RF: 0 Referrals Referrals: Se Tovar MD [Primary Care Provider] -
--- NOTE | 2020-06-30 17:14 | XRay Report ---
XR chest 1V portable HISTORY: 80 years-old Female Chest Pain . Atypical chest pain COMPARISON: Chest radiograph 06/26/2020 TECHNIQUE: Portable AP view of the chest FINDINGS: Cardiac silhouette is enlarged. Right IJ Hfyfmi-n-Haah catheter is unchanged. Pulmonary vascular kim estion with interstitial coarsening. Small right with [id number] loculated left pleural effusi on. Left basilar opacities redemonstrated. There is no significant change from comparison. Degenerati ve changes of the shoulders and spine with chronic right proximal humeral ununited fracture. IMPRESSION: 1. Cardiomegaly with pulmonary edema. 2. Unchanged small right with small to moderate loculated left pleural effusions. 3. Unchanged left lung base opacities suggestive of atelectasis versus pneumonia. ACT 112: Negative or not required by law. The above report was generated using voice recognition software. It may contain grammatical, syntax o r spelling errors. Electronically signed by: Rodolfo Cavanaugh M.D. 06/30/2020 5:12 PM
[2020-06-30 17:26] LABS: Basophils # (auto) 0.02 K/uL (0-0.2); Basophils % (auto) 0.1 %; Eosinophils # (auto) 0.11 K/uL (0-0.5); Eosinophils % (auto) 0.8 %; Hematocrit (blood only) 38.3 % (37-47); Hemoglobin 12.3 g/dL (12.0-16.0); Immature Granulocytes # (auto) 0.04 K/uL (0.00-0.02); Immature Granulocytes % (auto) 0.3 %; Lymphocytes # (auto) 0.78 K/uL (1.2-3.4); Lymphocytes % (auto) 5.6 %; Mean Corpuscular Hemoglobin 30.9 pg (25-34); Mean Corpuscular Hgb Conc 32.1 g/dL (32-36); Mean Corpuscular Volume 96.2 fL (80-100); Mean Platelet Volume 10.9 fL (7.4-10.4); Monocytes # (auto) 0.78 K/uL (0.11-0.59); Monocytes % (auto) 5.6 %; Neutrophils # (auto) 12.24 K/uL (1.4-6.5); Neutrophils % (auto) 87.6 %; Platelet Count 153 K/uL (130-400); RDW Standard Deviation 49.5 fL (36.4-46.3); Red Blood Count 3.98 M/uL (4.2-5.4); White Blood Count 13.97 K/uL (4.8-10.8)
[2020-06-30] MEDS ORDERED: MoRPHine SULFATE 2 MG/ML CARP IM STA (17:29)
[2020-06-30 17:51] LABS: Alanine Aminotransferase 24 U/L (12-78); Albumin Level 3.2 gm/dl (3.4-5.0); Aspartate Aminotransferase 16 U/L (15-37); BUN Creatinine Ratio 14.1 (10-20); Blood Urea Nitrogen 52 mg/dl (7-18); Calcium 8.6 mg/dl (8.5-10.1); Carbon Dioxide 20 mmol/L (21-32); Chloride 108 mmol/L (98-107); Est GFR (African American) 12.6; Est GFR (Non-African American) 10.8; Glucose 201 mg/dl (70-99); Lipase 47 U/L (73-393); Potassium 3.9 mmol/L (3.5-5.1); Sodium 139 mmol/L (136-145)
[2020-06-30 17:56] LABS: Albumin Globulin Ratio 1.1 (0.9-2); Alkaline Phosphatase 82 U/L (45-117); Bilirubin,Total 0.4 mg/dl (0.2-1); Total Protein 6.2 gm/dl (6.4-8.2); Troponin I < 0.015 ng/ml (0-0.045)
[2020-06-30] MEDS ORDERED: FUROSEMIDE 40 MG/4 ML VIAL IV STA (19:52)
[2020-06-30] MEDS ORDERED: BUMETANIDE 2 MG in SYRINGE 0 ML IV ONE (20:19)
[2020-06-30] MEDS: METOPROLOL TARTRATE 25 MG TAB PO SCH (22:03)
[2020-06-30 22:36] LABS: Influenza A virus by PCR Negative (Neg); Influenza B virus by PCR Negative (Neg); RSV by PCR Negative (Neg); SARS CoV2 RNA(COVID-19) InHosp NEGATIVE (Negative)
[2020-06-30] MEDS ORDERED: ALBUTEROL 0.083% NEBU SOLN 3 ML VIAL NEB PRN (22:59)
[2020-06-30] MEDS ORDERED: CEFEPIME 500 MG in SYRINGE 0 ML IV SCH (23:00)
[2020-06-30] MEDS ORDERED: metroNIDAZOLE 500 MG/100 ML BAG IV SCH (23:00)
--- NOTE | 2020-06-30 23:02 | History & Physical Report ---
Date of Service June 30, 2020 Assessment & Plan (1) Aspiration pneumonia: 79 yo F PMHx of CKD Stage V not on HD, Vit D deficiency, Hx lung nodule, Hx of breast cancer, anemia, CHF, COPD, glaucoma, depression, CVA, protein S deficiency, DVT, GERD, hyperlipidemia, RA, ulcerative colitis w/colostomy bag, DM2, HTN admitted for aspiration pneumonia, chest pain, SOB. SOB, aspiration pneumonia, COPD, pulmonary nodule: -Presenting complaint of SOB since last admission, but worsening since dischar ge. Has not been hypoxic, however. -XR shows moderate loculated left pleural effusion, as well as unchanged left lung base opaciy suggestive of atelectasis versus pneumonia. - CT Chest performed last admission on 06/26 showed aspiration pneumonitis/pneumonia, however antibiotics were discontinued. - Cefepime/Flagyl started this admission for suspected element of aspiration pneumonia causing left chest pain and SOB. Blood cultures drawn. -Incentive spirometer ordered. -Symptoms not consistent with COPD exacerbation. Continue home Anoro Ellipta, Symbicort, Singulair, prednisone. Albuterol as needed for SOB/wheezing. -Pulmonology consult placed given continued asymmetric loculated effusion with worsening SOB. May benefit from bronchoscopy. -Nocturnal pulse ox ordered to evaluate for MORGAN. -Patient in general has low reserve due to COPD, chronic fluid overload, age, deconditioning, ambulatory dysfunction. PT/OT ordered to assist with ambulatory dysfunction and general deconditioning. -Patient will need 2 step on discharge if requiring oxygen therapy in ordered to determine if need exists for home O2. Currently does not have O2 at home. Chest pain, fluid overload: -Presents with left chest pain with radiation to left neck and left shoulder. -Troponin x1 negative, will trend x3. EKG without ST/T wave changes since last admission. -CHF listed in EMR history, however last Echo performed 07/2019 with normal LVEF and no described diastolic dysfunction. -Echocardiogram ordered this admission to evaluate for diastolic or new systolic dysfunction. -Received 2mg Bumex and 40mg Lasix IV in ER today. Continue Bumex 1mg PO daily, and adjust dosing as needed based on fluid status, daily renal function, and Pulm/Nephro evaluation and recommendations. -Low sodium diet. Discussed detrimental effects of patient's current sodium intake on her success with fluid balance at home. -Continuous cardiac monitoring given chest pain, SOB, diuretic therapy. CKD stage 5: -Creatinine at baseline this admission. -Monitor daily with BMP. -Nephrology consult placed to clarify home diuretic regimen as patient takes differing doses based on her home symptoms. -Patient has discussed with myself, Dr. Tovar, and Nephrology her refusal of HD; she understands risks associated with refusal of dialysis. -Continue home sodium bicarb tablets. Hx CVA: -Continue aspirin, beta atmmy. -No neurologic deficits this admission. DM2: Last A1c 6.0%; not on medications in outpatient setting. BSG qACHS with SSI. Chronic pain, insomnia, depression: Continue home [place] as needed for pain. Melatonin qHS for sleep. Continue home bupropion for depression. Code Status: FULL CODE FEN: Heart healthy, DM2, low sodium, renal diet DVT ppx: Heparin 5000u SQ BID Dispo: Med/Surg with Telemetry (2) CHF (congestive heart failure): (3) Loculated pleural effusion: History of Present Illness Primary Care Provider: Se Tovar MD 79 yo F PMHx of CKD Stage V not on HD, Vit D deficiency, Hx lung nodule, Hx of breast cancer, anemia, CHF, COPD, glaucoma, depression, CVA, protein S deficiency, DVT, GERD, hyperlipidemia, RA, ulcerative colitis w/colostomy bag, DM2, HTN presented to ER with daughter for worsening SOB and left chest pain. Patient reports that she has had SOB since her last admission for partial SBO (discharged 06/26), and she was told she may have aspirated. Since discharge, her SOB has been getting worse, even at rest. She Also reports that this morning she started having left sided chest pain that radiated to her left shoulder and behind her neck on the left side. No associated sweating, dizziness, headache, abdominal pain, nausea, vomiting. No change in urination, or in colostomy output. In review of patient's diet, while she does not add salt to already- prepared food, she struggles with low sodium intake. For example, yesterday she had a [employer] fish sandwich for lunch, and scrapple for dinner. She also recently had Goulash prepared by her , and she is unsure how much salt he added. In the ER patient had labwork which showed mild leukocytosis, baseline kidney function, negative troponin, negative COVID 19. XR showed unchanged LLL consolidation, bilateral L>R pleural effusions with element of loculation. Patient received 40mg Lasix IV, and 2mg Bumex IV in ER. Hospitalist service was consulted for admission. Allergies Allergy/AdvReac Type Severity Reaction Status Date / Time bee venom protein (honey bee) Allergy Severe ANAPHYLAXIS Verified 06/30/20 17:51 cefaclor Allergy Severe stiff and Verified 06/30/20 17:51 sore muscles-PT DENIES lisinopril Allergy Severe tongue Verified 06/30/20 17:51 swelling diltiazem Allergy Intermediate rash Verified 06/30/20 17:51 Penicillins Allergy Mild RASH Verified 06/30/20 17:51 tetracycline Allergy Mild UNK-PT Verified 06/30/20 17:51 DENIES amoxicillin Allergy Unknown RASH Verified 06/30/20 17:51 cefuroxime Allergy Unknown TAST Verified 06/30/20 17:51 clavulanic acid Allergy Unknown ITCHING Verified 06/30/20 17:51 levofloxacin Allergy Unknown NAUSEA, Verified 06/30/20 17:51 DIZZINESS baclofen AdvReac Severe Severe Verified 06/30/20 17:51 sedation alendronate sodium AdvReac Intermediate FELT SICK Verified 06/30/20 17:51 ciprofloxacin AdvReac Intermediate LEGS ARMS Verified 06/30/20 17:51 STIFF, PAINFUL metformin AdvReac Intermediate CAUSED Verified 06/30/20 17:51 [employer] LACTIC ACID LEVELS tramadol AdvReac Intermediate DIZZINESS Verified 06/30/20 17:51 adhesive AdvReac Mild redness Verified 06/30/20 17:51 mercaptopurine AdvReac Mild MADE HER Verified 06/30/20 17:51 VERY ILL olmesartan AdvReac Mild HEADACHE Verified 06/30/20 17:51 Sulfa (Sulfonamide AdvReac Mild CAUSED Verified 06/30/20 17:51 Antibiotics) DIZZINESS sulfamethoxazole AdvReac Mild CAUSED Verified 06/30/20 17:51 DIZZINESS trimethoprim AdvReac Mild BACTRIM Verified 06/30/20 17:51 CAUSED DIZZINESS aspirin AdvReac Unknown CAUSES Verified 06/30/20 17:51 BRUISING Home Medications Medication Instructions Recorded Confirmed Type aspirin [Aspirin Low Dose] 81 mg PO QPM 11/22/17 06/30/20 History multivitamin with minerals 1 tab PO QAM 11/22/17 06/30/20 History pantoprazole 40 mg PO QAM 11/22/17 06/30/20 History prednisone 5 mg PO QAM 11/22/17 06/30/20 History brimonidine 1 drp OPB BID 06/22/18 06/30/20 History dorzolamide 1 drp OPR BID 06/22/18 06/30/20 History albuterol sulfate 90 mcg/actuation 2 - 4 puff INHALATION QID PRN #3 02/15/19 06/30/20 Rx aerosol inhaler inhaler acetaminophen [Tylenol Extra 500 mg PO Q6H PRN 08/25/19 06/30/20 History Strength] Desenex 1 applic EXT PRN PRN #43 gm 08/31/19 06/30/20 Rx diclofenac sodium [Voltaren] 2 g EXT QID PRN #100 gm 08/31/19 06/30/20 Rx sodium bicarbonate 650 mg tablet 650 mg PO DAILY #60 tab 01/12/20 06/30/20 Rx nystatin [Nystop] 1 applic EXT Q12 PRN 03/01/20 06/30/20 History bupropion HCl 200 mg PO BID 04/29/20 06/30/20 History hydrocodone-acetaminophen 1 tab PO DIRECTED PRN 04/29/20 06/30/20 History melatonin 6 mg PO HS 04/29/20 06/30/20 History Anoro Ellipta 1 puff INHALATION DAILY #0 ea 05/07/20 06/30/20 Rx anastrozole 1 mg PO QPM #0 tab 05/07/20 06/30/20 Rx ferrous sulfate 325 mg PO BID #0 tab 05/07/20 06/30/20 Rx guaifenesin [Mucinex] 600 mg PO Q12 #0 tab 05/07/20 06/30/20 Rx metoprolol tartrate 25 mg PO BID #0 tab 05/07/20 06/30/20 Rx montelukast [Singulair] 10 mg PO HS #0 tab 05/07/20 06/30/20 Rx zafirlukast 20 mg tablet 20 mg PO Q12H #180 tab 06/17/20 06/30/20 Rx bumetanide 1 mg tablet 1 mg PO DAILY tab 06/24/20 06/30/20 History Past Med/Surg History Medical History Acute osteomyelitis (06/05/01) "MRSA of the thoracic spine " On 02/05/12 10:49 Wilfredo Melendez wrote "MRSA of the thoracic spine " Bilateral interstitial pneumonia Calcified granuloma of lung CHF (congestive heart failure) Chronic back pain Chronic kidney disease, stage V CKD (chronic kidney disease) COPD (chronic obstructive pulmonary disease) Deep vein thrombosis L LEG Diabetes mellitus, type 2 Dyspnea Elevated troponin Fibromyalgia GERD (gastroesophageal reflux disease) Glaucoma BILT EYES Hypercalcemia Hyperglycemia due to diabetes mellitus Hypertensive urgency Parapneumonic effusion Pleural effusion on left Pleural effusion, right Pneumonia, organism unspecified (02/05/12) Rheumatoid arthritis Secondary pulmonary hypertension Spinal stenosis Stroke 07/2017--DIFFICULTY WALKING Trigeminal neuralgia Ulcerative colitis Vitamin D deficiency Volume overload Surgical History H/O bilateral cataract extraction H/O ileostomy H/O right inguinal hernia repair History of appendectomy History of bowel resection 1993 WITH ILEOSTOMY @ [facility] [place] History of breast biopsy LEFT MALIGNANT X2 History of colonoscopy History of esophagogastroduodenoscopy (EGD) History of gastric surgery 2012---[facility] ON STOMACH WALL History of lumpectomy of left breast X2 2005 WITH LYMPH NODE REMOVAL, 2012 History of tooth extraction ALL TEETH Family History Brother Family history of diabetes mellitus 2 BROTHERS Mother Family hx of colon cancer Father Family hx of colon cancer Social History Smoking Status: Former smoker Tobacco Type: Cigarettes Smoking End Date: 29 years ago; Second Hand Exposure: Yes; Hx Alcohol Use: No Hx Substance Use: No Preferred Language: Welsh Communication Ability: Effective Visual Impairment: Limited Hearing Ability: Hard of Hearing Multimedia Teacher Required: No Beliefs That Will Affect Care: None marital status: Current Living Situation: Spouse Current Living Situation Comment: Lives with current occupational status: retired How many Children do You have: 2 How many Children do You have Comment: Daughters Leidy and Sonia are both local and able to assist with care as needed. Feels Safe at Home: Yes Safety Concerns: Feels Safe At This Time Diet Comment: stated she tries, but isn't always good about her diet during the past year weight has: decreased > 10 lbs Assistive Devices: Denture - Upper, Denture - Lower, Glasses and Walker Review of Systems Review of Systems: All systems reviewed & are unremarkable except as noted in HPI & below Constitutional: no fever, no chills and no malaise Respiratory: + dyspnea (Without hypoxia); no cough Cardiovascular: + chest pain and + edema (Chronic); no palpitations Gastrointestinal: no abdominal pain, no constipation and no diarrhea/loose stools Genitourinary: no dysuria and no hematuria Physical Exam Constitutional: WD/WN, vitals as above Eyes: PERRL, conjunctivae normal, anicteric sclerae ENMT: external ear and nose normal, oropharynx normal Neck: normal visual inspection Respiratory: poor air movement throughout, mild bibasilar crackles, decreased breath sounds LLL, no wheezes Cardiovascular: RRR, no murmur, no edema Gastrointestinal (Abdomen): normal bowel sounds, soft, nontender, no hepatosplenomegaly (Right sided ostomy in place) Musculoskeletal: no cyanosis or clubbing, extremities motor strength 5/5 Skin: no rashes, warm and dry Neurologic: AAOx3, normal speech. Bilateral UE, LE, and face without sensory or motor deficits. No tremor. Psychiatric: A+Ox3, euthymic affect Results & Data Results & Data ([facility]) Vital Signs (Past 12 Hours) Vital Signs Temp Pulse Pulse Resp BP BP Pulse Ox 06/30/20 22:54 78 19 179/96 H 95 06/30/20 21:50 77 96 06/30/20 21:40 76 95 06/30/20 21:30 80 188/90 H 95 06/30/20 21:20 85 19 92 06/30/20 21:10 81 21 06/30/20 21:00 78 24 94 06/30/20 20:50 76 23 94 06/30/20 20:40 23 94 06/30/20 20:30 76 22 95 06/30/20 20:20 76 22 94 06/30/20 20:13 79 20 218/104 H 95 06/30/20 20:10 74 22 94 06/30/20 20:00 73 19 94 06/30/20 19:50 73 20 94 06/30/20 19:40 75 24 95 06/30/20 19:30 75 20 170/90 H 93 06/30/20 19:20 77 22 94 06/30/20 19:10 75 21 93 06/30/20 19:00 76 22 189/92 H 93 06/30/20 18:50 77 23 95 06/30/20 18:41 85 06/30/20 18:30 77 24 92 06/30/20 18:20 74 20 93 06/30/20 18:10 75 21 93 06/30/20 18:00 75 21 93 06/30/20 17:50 75 21 94 06/30/20 17:40 74 93 06/30/20 17:39 76 18 207/126 H 96 06/30/20 17:30 73 95 06/30/20 17:21 72 18 100 06/30/20 17:20 71 99 06/30/20 17:19 71 21 100 06/30/20 16:15 36.6 C 69 18 172/84 H 94 Code Status & VTE Plan VTE Prophylaxis Plan VTE Prophylaxis will be ordered: Yes Supervising Physician Co-Signing Physician Notes Attending addendum: I have physically seen this patient, have supervised the medical residents activities, and agree with the H&P unless as otherwise noted. Assessment and Plan: Recurrent aspiration pneumonia/COPD exacerbation/pulmonary nodule- Most recent admissions 04/29-05/07/2020, and 06/26-06/27/2020. Persistent moderate loculated left pleural effusion/unchanged left lower lobe infiltrate- Placed on cefepime and Flagyl IV per pharmacokinetic monitoring Duonebs every 4 hours while awake and every 2 hours when necessary. Consult her yield clerk Dr. Brian Hedrickfenesin extended release 600 mg p.o. twice daily Has had speech assessment in the past Bilateral pleural effusions, left > right- The patient will be admitted to telemetry for serial cardiac enzymes, serial EKG's, cardiac rhythm monitoring and a 2-D echocardiogram with Dopplers. Given Bumex by mouth and Lasix 40 mg IV in ED. follow response and adjust meds accordingly. Suggest discontinue scrapel for diet in the future. Excess sodium intake at least partially involved in her symptoms today Remaining orders and notations as noted Resident Activity Tracking Resident Involvement: Resident Care Provided Care Provided: Adult Hospital Medicine (1) Aspiration pneumonia Aspiration pneumonia type: unspecified Laterality: unspecified laterality Lung location: unspecified part of lung Qualified Code(s): J69.0 - Pneumonitis due to inhalation of food and vomit
[2020-07-01] MEDS ORDERED: DICLOFENAC SOD 1% GEL 100 GM TUBE EXT PRN (00:12)
[2020-07-01] MEDS ORDERED: ACETAMINOPHEN HOME PACK 500 MG TABLET PO PRN (00:12)
[2020-07-01] MEDS ORDERED: CARBOHYDRATES FOR HYPOGLYCEMIA PO PRN (00:12)
[2020-07-01] MEDS ORDERED: GLUCAGON FOR INJ 1 MG VIAL SQ PRN (00:12)
[2020-07-01] MEDS ORDERED: GLUCOSE 10 TABS/TUBE PO PRN (00:12)
[2020-07-01] MEDS ORDERED: NYSTATIN POWDER 15GM BTL EXT PRN (00:12)
[2020-07-01] MEDS ORDERED: GLUCOSE 40% GEL 15 GM TUBE PO PRN (00:12)
[2020-07-01] MEDS ORDERED: DEXTROSE 50% 50 ML SYRINGE IV PRN (00:12)
[2020-07-01] MEDS ORDERED: MELATONIN 3 MG TAB PO ONE (01:10)
[2020-07-01] MEDS: MELATONIN 3 MG TAB PO SCH ×2 (01:11→20:19)
[2020-07-01] MEDS: HYDROCODONE/ACETAMOPHEN 5/325MG TAB PO PRN (01:28)
[2020-07-01] MEDS: metroNIDAZOLE 500 MG/100 ML BAG IV SCH ×2 (01:29→10:30)
[2020-07-01] MEDS: PATIENT'S HEIGHT AND/OR WEIGHT NEEDED SCH ×4 (02:05→07:46)
--- NOTE | 2020-07-01 05:34 | Billing Data ---
Date of Service July 01, 2020 Coding Level of Care Code 72092 Initial Inpt Care Lvl 3
--- NOTE | 2020-07-01 08:48 | Electrocardiogram Report ---
Test Reason : Blood Pressure : / mmHG Vent. Rate : 075 BPM Atrial Rate : 075 BPM P-R Int : 192 ms QRS Dur : 096 ms QT Int : 394 ms P-R-T Axes : 044 -01 170 degrees QTc Int : 439 ms Normal sinus rhythm Left ventricular hypertrophy with repolarization abnormality Abnormal ECG When compared with ECG of 26-JUN-2020 11:13, No significant change was found Confirmed by Martín Ordoñez ([id number]) on 07/01/2020 8:48:04 AM Referred By: REFERRED SELF Confirmed By:Martín Ordoñez
[2020-07-01] MEDS ORDERED: BUMETANIDE 1 MG TAB PO SCH (09:00)
[2020-07-01] MEDS ORDERED: SODIUM BICARBONATE 650 MG TAB PO SCH (09:00)
[2020-07-01] MEDS: guaiFENesin 600 MG TABCR PO SCH ×2 (09:22→20:17)
[2020-07-01] MEDS: FERROUS SULFATE 325 MG TAB PO SCH ×2 (09:23→20:16)
[2020-07-01] MEDS: buPROPion SR 100 MG TABCR PO SCH ×2 (09:23→20:16)
[2020-07-01] MEDS: PANTOprazole 40 MG TAB PO SCH (09:23)
[2020-07-01] MEDS: CEROVITE ADV FORMULA TAB PO SCH (09:23)
[2020-07-01] MEDS: predniSONE 5 MG TAB PO SCH (09:23)
[2020-07-01] MEDS: METOPROLOL TARTRATE 25 MG TAB PO SCH ×2 (09:24→20:19)
[2020-07-01] MEDS: UMECLIDINIUM/VILANTEROL 62.5/25MCG 7 PUFFS/INHALER INH SCH (09:24)
[2020-07-01] MEDS: FLUTICASONE/VILANTEROL 100/25MCG 14 PUFFS/INHALER INH SCH (09:24)
[2020-07-01] MEDS: HEPARIN SOD 5,000 UNIT/0.5 ML VIAL SQ SCH ×2 (09:24→20:18)
[2020-07-01] MEDS: BRIMONIDINE TARTRATE 0.2% 5ML OPB SCH ×2 (09:25→20:16)
[2020-07-01] MEDS: DORZOLAMIDE HCL 2% OPH SOLN 10 ML BTL OPR SCH ×2 (09:25→20:15)
[2020-07-01 09:57] LABS: BUN Creatinine Ratio 13.9 (10-20); Blood Urea Nitrogen 52 mg/dl (7-18); Calcium 9.4 mg/dl (8.5-10.1); Carbon Dioxide 21 mmol/L (21-32); Chloride 107 mmol/L (98-107); Creatinine Clr Calc Pharmacy 11.8 ml/min; Est GFR (African American) 12.2; Est GFR (Non-African American) 10.5; Glucose 175 mg/dl (70-99); Potassium 3.8 mmol/L (3.5-5.1); Sodium 137 mmol/L (136-145)
[2020-07-01 10:01] LABS: Troponin I < 0.015 ng/ml (0-0.045)
[2020-07-01] MEDS: INSULIN ASPART 100 UNITS/ML 3 ML PEN SC SCH ×4 (10:35→20:20)
--- NOTE | 2020-07-01 10:56 | Nephrology Consultation ---
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 Admitted with chest pain/epigastric pain, EKG unremarkable. Found to be volume overloaded with loculated left pleural effusion and pulmonary congestion. Was on low-dose diuretics at home which she has been taking infrequently. Renal function seems to be at her baseline, electrolyte acceptable. Volume overloaded on exam. --increase Bumex to 1 mg twice a day, aim for net negative, monitor intake and output. If remained net positive, will need to increase Bumex to 2 mg twice a day --dose medications for GFR less than 10 --JESSICA as needed for hemoglobin less than 11 Will follow Thank you for allowing me to participate in your patient's care. It was a pleasure to see Florencia (2) Anemia: (3) Volume overload: (4) Loculated pleural effusion: History of Present Illness Reason for Consultation: Stage 5 CKD, volume overload. Attending Physician: Kimberly Solano MD History of Present Illness Florencia Elise is 80-year-old female with h/o stage 5 CKD, admitted to the hospital with chest pain and volume overload. Nephrology consult was requested to help manage diuretic. EMR records are reviewed in detail during patient's visit. Florencia presented to yesterday with chest pain and epigastric pain. On admission she was hypoxic on room air. Chest X ray showed pulmonary vascular congestion. EKG with normal sinus rhythm, no ST-T changes. She was found to be volume overloaded with some concern for high salt intake. At home she was on Bumex 1 mg twice a day which she was taking only as needed, mostly once a day. She r eceived IV Bumex on admission and currently continued on Bumex 1 mg daily. Kidney function seems to be at her baseline, creatinine 3.7, electrolyte acceptable. She was recently admitted to the hospital from 06/26 to for sleep as she 27 for partial small-bowel obstruction which improved with conservative management. She has ileostomy with prior history of colon resection.. 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 Had previous discussion about renal replacement therapy options and she decided to continue with conservative management of end-stage renal disease and not consider dialysis in future. Ex- smoker, has history of smoking for 30 years. Retired, lives with and has daughters who lives locally and help take care. She reports continued epigastric discomfort but there has been some improvement since admission. Allergies Allergy/AdvReac Type Severity Reaction Status Date / Time bee venom protein (honey bee) Allergy Severe ANAPHYLAXIS Verified 06/30/20 17:51 cefaclor Allergy Severe stiff and Verified 06/30/20 17:51 sore muscles-PT DENIES lisinopril Allergy Severe tongue Verified 06/30/20 17:51 swelling diltiazem Allergy Intermediate rash Verified 06/30/20 17:51 Penicillins Allergy Mild RASH Verified 06/30/20 17:51 tetracycline Allergy Mild UNK-PT Verified 06/30/20 17:51 DENIES amoxicillin Allergy Unknown RASH Verified 06/30/20 17:51 cefuroxime Allergy Unknown TAST Verified 06/30/20 17:51 clavulanic acid Allergy Unknown ITCHING Verified 06/30/20 17:51 levofloxacin Allergy Unknown NAUSEA, Verified 06/30/20 17:51 DIZZINESS baclofen AdvReac Severe Severe Verified 06/30/20 17:51 sedation alendronate sodium AdvReac Intermediate FELT SICK Verified 06/30/20 17:51 ciprofloxacin AdvReac Intermediate LEGS ARMS Verified 06/30/20 17:51 STIFF, PAINFUL metformin AdvReac Intermediate CAUSED Verified 06/30/20 17:51 BACK PAIN AND INC. LACTIC ACID LEVELS tramadol AdvReac Intermediate DIZZINESS Verified 06/30/20 17:51 adhesive AdvReac Mild redness Verified 06/30/20 17:51 mercaptopurine AdvReac Mild MADE HER Verified 06/30/20 17:51 VERY ILL olmesartan AdvReac Mild HEADACHE Verified 06/30/20 17:51 Sulfa (Sulfonamide AdvReac Mild CAUSED Verified 06/30/20 17:51 Antibiotics) DIZZINESS sulfamethoxazole AdvReac Mild CAUSED Verified 06/30/20 17:51 DIZZINESS trimethoprim AdvReac Mild BACTRIM Verified 06/30/20 17:51 CAUSED DIZZINESS aspirin AdvReac Unknown CAUSES Verified 06/30/20 17:51 BRUISING perflutren [From Definity] AdvReac Back Pain Verified 07/01/20 08:38 Home Medications Medication Instructions Recorded Confirmed Type aspirin [Aspirin Low Dose] 81 mg PO QPM 11/22/17 06/30/20 History multivitamin with minerals 1 tab PO QAM 11/22/17 06/30/20 History pantoprazole 40 mg PO QAM 11/22/17 06/30/20 History prednisone 5 mg PO QAM 11/22/17 06/30/20 History brimonidine 1 drp OPB BID 06/22/18 06/30/20 History dorzolamide 1 drp OPR BID 06/22/18 06/30/20 History albuterol sulfate 90 mcg/actuation 2 - 4 puff INHALATION QID PRN #3 02/15/19 06/30/20 Rx aerosol inhaler inhaler acetaminophen [Tylenol Extra 500 mg PO Q6H PRN 08/25/19 06/30/20 History Strength] Desenex 1 applic EXT PRN PRN #43 gm 08/31/19 06/30/20 Rx diclofenac sodium [Voltaren] 2 g EXT QID PRN #100 gm 08/31/19 06/30/20 Rx sodium bicarbonate 650 mg tablet 650 mg PO DAILY #60 tab 01/12/20 06/30/20 Rx nystatin [Nystop] 1 applic EXT Q12 PRN 03/01/20 06/30/20 History bupropion HCl 200 mg PO BID 04/29/20 06/30/20 History hydrocodone-acetaminophen 1 tab PO DIRECTED PRN 04/29/20 06/30/20 History melatonin 6 mg PO HS 04/29/20 06/30/20 History Anoro Ellipta 1 puff INHALATION DAILY #0 ea 05/07/20 06/30/20 Rx anastrozole 1 mg PO QPM #0 tab 05/07/20 06/30/20 Rx ferrous sulfate 325 mg PO BID #0 tab 05/07/20 06/30/20 Rx guaifenesin [Mucinex] 600 mg PO Q12 #0 tab 05/07/20 06/30/20 Rx metoprolol tartrate 25 mg PO BID #0 tab 05/07/20 06/30/20 Rx montelukast [Singulair] 10 mg PO HS #0 tab 05/07/20 06/30/20 Rx zafirlukast 20 mg tablet 20 mg PO Q12H #180 tab 06/17/20 06/30/20 Rx bumetanide 1 mg tablet 1 mg PO DAILY tab 06/24/20 06/30/20 History Patient History Medical History Acute osteomyelitis (06/05/01) "MRSA of the thoracic spine " On 02/05/12 10:49 Wilfredo Anthony Al wrote "MRSA of the thoracic spine " Bilateral interstitial pneumonia Calcified granuloma of lung CHF (congestive heart failure) Chronic back pain Chronic kidney disease, stage V CKD (chronic kidney disease) COPD (chronic obstructive pulmonary disease) Deep vein thrombosis L LEG Diabetes mellitus, type 2 Dyspnea Elevated troponin Fibromyalgia GERD (gastroesophageal reflux disease) Glaucoma BILT EYES Hypercalcemia Hyperglycemia due to diabetes mellitus Hypertensive urgency Parapneumonic effusion Pleural effusion on left Pleural effusion, right Pneumonia, organism unspecified (02/05/12) Rheumatoid arthritis Secondary pulmonary hypertension Spinal stenosis Stroke 07/2017--DIFFICULTY WALKING Trigeminal neuralgia Ulcerative colitis Vitamin D deficiency Volume overload Surgical History H/O bilateral cataract extraction H/O ileostomy H/O right inguinal hernia repair History of appendectomy [place] of [place] [facility] [place] [facility] [place] of breast biopsy LEFT MALIGNANT X2 History of colonoscopy History of esophagogastroduodenoscopy (EGD) History of gastric surgery 2012---[facility] ON STOMACH WALL History of lumpectomy of left breast X2 2005 WITH LYMPH NODE REMOVAL, 2012 History of tooth extraction ALL TEETH Family History Brother Family history of diabetes mellitus 2 BROTHERS Mother Family hx of colon cancer Father Family hx of colon cancer Social History Smoking Status: Former smoker Tobacco Type: Cigarettes Smoking End Date: 29 years ago; Second Hand Exposure: Yes; Hx Alcohol Use: No Hx Substance Use: No Preferred Language: Filipino Communication Ability: Effective Visual Impairment: Limited Hearing Ability: Hard of Hearing Regulatory Process Manager Required: No Beliefs That Will Affect Care: None marital status: Current Living Situation: Spouse Current Living Situation Comment: Lives with current occupational status: retired How many Children do You have: 2 How many Children do You have Comment: Daughters Leidy and Sonia are both local and able to assist with care as needed. Feels Safe at Home: Yes Safety Concerns: Feels Safe At This Time Diet Comment: stated she tries, but isn't always good about her diet during the past year weight has: decreased > 10 lbs Assistive Devices: Denture - Upper, Denture - Lower, Glasses and Walker Review of Systems Review of Systems: All systems reviewed & are unremarkable except as noted in Subjective Physical Exam Constitutional: WD/WN, vitals as above no acute distress Eyes: PERRL, conjunctivae normal, anicteric sclerae ENMT: external ear and nose normal, oropharynx normal Ears: no hearing impairment Neck: normal visual inspection Respiratory: normal respiratory effort; no respiratory distress and no cough Auscultation: + diminished lung sounds and + rales Cardiovascular: RRR, no murmur, no edema Gastrointestinal (Abdomen): normal bowel sounds, soft, nontender, no hepatosplenomegaly Inspection/Auscultation: normal bowel sounds Percussion/Palpation: abdomen soft; abdomen nontender, no guarding and abdomen not rigid ileostomy Musculoskeletal: Extremities: extremities normal to inspection Gait: normal gait Skin: no rashes, warm and dry Neurologic: awake; no focal motor deficits and not confused Psychiatric: A+Ox3, euthymic affect Results & Data ([facility]) Vital Signs (Past 12 Hours) Vital Signs Temp Pulse Pulse Resp BP BP BP 07/01/20 08:00 36.4 C L 66 18 131/62 07/01/20 07:51 67 07/01/20 03:16 36.4 C L 65 18 07/01/20 02:03 78 07/01/20 00:57 36.6 C 84 24 120/82 06/30/20 22:54 78 19 179/96 H Pulse Ox 07/01/20 08:00 100 07/01/20 07:51 07/01/20 03:16 99 07/01/20 02:03 07/01/20 00:57 98 06/30/20 22:54 95 PG Care Time/CCT Total # of Minutes Spent Total Time Spent with Patient: Total time spent is greater than 50% in coordination of care (as documented) at patient's floor/unit and/or counseling patient: Coding Level of Care Code 83105 Initial Inpt Care Lvl 3 Diagnoses Chronic kidney disease, stage V N18.5 Anemia D64.9 Volume overload E87.79 Hypervolemia type: other Loculated pleural effusion J90 (1) Volume overload Hypervolemia type: other Qualified Code(s): E87.79 - Other fluid overload
--- NOTE | 2020-07-01 11:45 | Medical Student Progress Note ---
Date of Service July 01, 2020 Assessment & Plan (1) Dyspnea: 79 yo F PMHx of CKD Stage 5 not on HD, Vit D deficiency, Hx lung nodule, Hx of breast cancer, anemia, CHF, COPD, glaucoma, depression, CVA, protein S deficiency, DVT, GERD, hyperlipidemia, RA, ulcerative colitis w/colostomy bag, DM2, HTN admitted for aspiration pneumonia, chest pain, SOB. Dyspnea: -Presenting complaint of SOB since last admission, but worsening since discharge. Has not been hypoxic, however. Has not improved since admission. -XR shows moderate loculated left pleural effusion, as well as unchanged left lung base opacity suggestive of atelectasis versus pneumonia. -Procalcitonin was 0.17, making an aspiration pneumonia less likely. Cefepime/Flagyl was discontinued. Restart antibiotics if she develops fever, productive cough, or significant leukocytosis. -Blood cultures were drawn and are still pending. -Incentive spirometer ordered. -Symptoms not consistent with COPD exacerbation. Continue home Anoro Ellipta, Symbicort, Singulair, prednisone. Albuterol as needed for SOB/wheezing. -Pulmonology consult placed. They believe this is fluid overload. They do not believe a thoracentesis is indicated at this time. -Nocturnal pulse ox ordered to evaluate for MORGAN. -Patient in general has low reserve due to COPD, chronic fluid overload, age, deconditioning, ambulatory dysfunction. PT/OT ordered to assist with ambulatory dysfunction and general deconditioning. -Patient will need 2 step on discharge if requiring oxygen therapy in ordered to determine if need exists for home O2. Currently does not have O2 at home. Chest Pain/fluid overload: -Presents with mid-sternal/left chest pain with radiation to left neck and left shoulder. -Troponin x2 negative, will trend x3. EKG without ST/T wave changes since last admission. -CHF listed in EMR history, however last Echo performed 07/2019 with normal LVEF and no described diastolic dysfunction. -Echocardiogram today shows reduced LVEF at 30-35% with grade II diastolic dysfunction. -Received 2mg Bumex and 40mg Lasix IV in ER on admission. -Increase Bumex 1mg BID per nephrology consult, monitor intake and output. If remained net positive, will need to increase Bumex to 2mg BID. -Low sodium diet. Discussed detrimental effects of patient's current sodium intake on her success with fluid balance at home. -Continuous cardiac monitoring given chest pain, SOB, diuretic therapy. CKD stage 5: -Creatinine (3.77) and BUN (52) elevated on admission. -Monitor daily with BMP. -Nephrology consult placed to clarify home diuretic regimen as patient takes differing doses based on her home symptoms. -Patient refuses hemodialysis and understands risks associated with refusal of dialysis. -Dose medications for GFR less than 10 -JESSICA as needed for hemoglobin less than 11 -Continue home sodium bicarb tablets. Hx CVA: -Continue aspirin, beta tammy. -No neurologic deficits this admission. DM2: -Last A1c 6.0%; not on medications in outpatient setting. -BSG qACHS with SSI. Chronic pain, insomnia, depression: -Continue home [place] as needed for pain. -Melatonin qHS for sleep. -Continue home bupropion for depression. Code Status: FULL CODE FEN: Heart healthy, DM2, low sodium, renal diet DVT ppx: Heparin 5000u SQ BID Dispo: Med/Surg with Telemetry Dyspnea type: unspecified Qualified Code(s): R06.00 - Dyspnea, unspecified (2) Volume overload: Hypervolemia type: other Qualified Code(s): E87.79 - Other fluid overload (3) Chronic kidney disease, stage V: (4) Anemia: (5) Loculated pleural effusion: Admission and Anticipated Discharge Date Admission Date: June 30, 2020 Supervising Attestation Medical Student Supervision Note: I was personally present during medical student patient encounter and independently interviewed and examined the patient and verified the delatorre history and physical, reviewed labs and image studies, discussed the case with Ben Ascencio and agree with the findings and care plan. Acute Heart failure with reduced ejection fracture in the setting of CKD stage 5 No concern of infection - will d/c abx. continue diuretics patient has been declining dialysis. Subjective Alert and oriented. Complains of mid-sternal pleuritic chest pain at an 8/10. This has been present since she was discharged from [facility] on 06/26. She had no acute events overnight. She is eating well. She notes that she gets short of breath when she sits up and is moving around even if it is just in bed. This worsens when she gets up to walk to the bathroom. She denies palpitations with this, and reports feeling well otherwise. Denies any chills, night sweats, nausea or vomiting. Review of Systems Respiratory: + dyspnea (Without hypoxia); no cough Cardiovascular: + chest pain and + edema (Chronic); no palpitations Gastrointestinal: no problem reported Physical Exam Constitutional: WD/WN, vitals as above no acute distress Eyes: PERRL, conjunctivae normal, anicteric sclerae ENMT: external ear and nose normal, oropharynx normal Ears: no hearing impairment Neck: normal visual inspection Respiratory: normal respiratory effort and + labored breathing; no respiratory distress and no cough Auscultation: + diminished lung sounds and + rales Slight dyspnea with activity. Rales noted at the lung bases. Cardiovascular: RRR, no murmur, no edema Gastrointestinal (Abdomen): normal bowel sounds, soft, nontender, no hepatosplenomegaly (normal given the patient's ileostomy.) Inspection/Auscultation: normal bowel sounds Percussion/Palpation: abdomen soft; abdomen nontender, no guarding and abdomen not rigid Musculoskeletal: no cyanosis or clubbing, extremities motor strength 5/5 Extremities: extremities normal to inspection Gait: normal gait Skin: no rashes, warm and dry Neurologic: awake; no focal motor deficits and not confused Psychiatric: A+Ox3, euthymic affect Results & Data ([facility]) Vital Signs (Past 12 Hours) Vital Signs Temp Pulse Pulse Resp BP BP Pulse Ox 07/01/20 08:00 36.4 C L 66 18 131/62 100 07/01/20 07:51 67 07/01/20 03:16 36.4 C L 65 18 99 07/01/20 02:03 78 07/01/20 00:57 36.6 C 84 24 120/82 98
--- NOTE | 2020-07-01 12:19 | XCELERA ---
[id number]
--- NOTE | 2020-07-01 13:41 | Pulmonary Consultation ---
Date of Consultation July 01, 2020 Assessment & Plan (1) Loculated pleural effusion: (2) CHF (congestive heart failure): (3) Pulmonary edema: (4) Aspiration pneumonia: Impression: 80-year-old female admitted with multiple somatic complaints and found to have loculated pleural effusion on the left. She likely has fluid overload and has had her diuretic regimen increased. Recommendations: 1. Pleural effusion: Effusions are small and stable. They do not demonstrate any increase in size so I doubt they are the source of the patient's current complaints. The patient again would like to avoid invasive procedures so she is declined thoracentesis. Would continue to follow clinically and only pursue thoracentesis if the patient had symptoms and x-ray demonstrated increased size of the effusions. 2. Questionable pneumonia: Do not see clear evidence of an airspace opacity on x-ray so would defer antibiotics at this point time unless the patient were to have fevers, productive cough, or significant leukocytosis attributable to pneumonia. 3. Hypoxemia: Wean oxygen as tolerated. Hopefully this will improve with diuresis. Pulmonary will sign off at this point time. Feel free to contact us if we can be of additional assistance. Will sign off. Please call if we can be of additional assistance. Aspiration pneumonia type: unspecified Laterality: unspecified laterality Lung location: unspecified part of lung Qualified Code(s): J69.0 - Pneumonitis due to inhalation of food and vomit History of Present Illness Attending Physician: Kimberly Solano MD History of Present Illness Asked by hospitalist to assist in evaluation management of this patient with a pleural effusion. Patient is known to me from admission in April where I saw her for a pleural effusion. She declined evaluation at that point in time as she was not interested in invasive procedures and the fluid was loculated. Patient was readmitted to the hospital with fluid overload and chest discomfort. Nephrology has been consulted to manage diuretics. She had some substernal/epigastric pain as well. Chest x-ray showed pulmonary congestion and CT scan demonstrated persistent fluid collections which again are loculated and not much different than CT scans from 8 weeks ago. She has been seen by nephrology who recommended increasing Bumex. The patient denies fevers chills or night sweats. There was some concern about potential aspiration. Allergies Allergy/AdvReac Type Severity Reaction Status Date / Time bee venom protein (honey bee) Allergy Severe ANAPHYLAXIS Verified 06/30/20 17:51 cefaclor Allergy Severe stiff and Verified 06/30/20 17:51 sore muscles-PT DENIES lisinopril Allergy Severe tongue Verified 06/30/20 17:51 swelling diltiazem Allergy Intermediate rash Verified 06/30/20 17:51 Penicillins Allergy Mild RASH Verified 06/30/20 17:51 tetracycline Allergy Mild UNK-PT Verified 06/30/20 17:51 DENIES amoxicillin Allergy Unknown RASH Verified 06/30/20 17:51 cefuroxime Allergy Unknown TAST Verified 06/30/20 17:51 clavulanic acid Allergy Unknown ITCHING Verified 06/30/20 17:51 levofloxacin Allergy Unknown NAUSEA, Verified 06/30/20 17:51 DIZZINESS baclofen AdvReac Severe Severe Verified 06/30/20 17:51 sedation alendronate sodium AdvReac Intermediate FELT SICK Verified 06/30/20 17:51 ciprofloxacin AdvReac Intermediate LEGS ARMS Verified 06/30/20 17:51 STIFF, PAINFUL metformin AdvReac Intermediate CAUSED Verified 06/30/20 17:51 BACK PAIN [employer]. LACTIC ACID LEVELS tramadol AdvReac Intermediate DIZZINESS Verified 06/30/20 17:51 adhesive AdvReac Mild redness Verified 06/30/20 17:51 mercaptopurine AdvReac Mild MADE HER Verified 06/30/20 17:51 VERY ILL olmesartan AdvReac Mild HEADACHE Verified 06/30/20 17:51 Sulfa (Sulfonamide AdvReac Mild CAUSED Verified 06/30/20 17:51 Antibiotics) DIZZINESS sulfamethoxazole AdvReac Mild CAUSED Verified 06/30/20 17:51 DIZZINESS trimethoprim AdvReac Mild BACTRIM Verified 06/30/20 17:51 CAUSED DIZZINESS aspirin AdvReac Unknown CAUSES Verified 06/30/20 17:51 BRUISING perflutren [From Definity] AdvReac Back Pain Verified 07/01/20 08:38 Home Medications Medication Instructions Recorded Confirmed Type aspirin [Aspirin Low Dose] 81 mg PO QPM 11/22/17 06/30/20 History multivitamin with minerals 1 tab PO QAM 11/22/17 06/30/20 History pantoprazole 40 mg PO QAM 11/22/17 06/30/20 History prednisone 5 mg PO QAM 11/22/17 06/30/20 History brimonidine 1 drp OPB BID 06/22/18 06/30/20 History dorzolamide 1 drp OPR BID 06/22/18 06/30/20 History albuterol sulfate 90 mcg/actuation 2 - 4 puff INHALATION QID PRN #3 02/15/19 06/30/20 Rx aerosol inhaler inhaler acetaminophen [Tylenol Extra 500 mg PO Q6H PRN 08/25/19 06/30/20 History Strength] Desenex 1 applic EXT PRN PRN #43 gm 08/31/19 06/30/20 Rx diclofenac sodium [Voltaren] 2 g EXT QID PRN #100 gm 08/31/19 06/30/20 Rx sodium bicarbonate 650 mg tablet 650 mg PO DAILY #60 tab 01/12/20 06/30/20 Rx nystatin [Nystop] 1 applic EXT Q12 PRN 03/01/20 06/30/20 History bupropion HCl 200 mg PO BID 04/29/20 06/30/20 History hydrocodone-acetaminophen 1 tab PO DIRECTED PRN 04/29/20 06/30/20 History melatonin 6 mg PO HS 04/29/20 06/30/20 History Anoro Ellipta 1 puff INHALATION DAILY #0 ea 05/07/20 06/30/20 Rx anastrozole 1 mg PO QPM #0 tab 05/07/20 06/30/20 Rx ferrous sulfate 325 mg PO BID #0 tab 05/07/20 06/30/20 Rx guaifenesin [Mucinex] 600 mg PO Q12 #0 tab 05/07/20 06/30/20 Rx metoprolol tartrate 25 mg PO BID #0 tab 05/07/20 06/30/20 Rx montelukast [Singulair] 10 mg PO HS #0 tab 05/07/20 06/30/20 Rx zafirlukast 20 mg tablet 20 mg PO Q12H #180 tab 06/17/20 06/30/20 Rx bumetanide 1 mg tablet 1 mg PO DAILY tab 06/24/20 06/30/20 History Patient History Medical History Acute osteomyelitis (06/05/01) "MRSA of the thoracic spine " On 02/05/12 10:49 Wilfredo Melendez wrote "MRSA of the thoracic spine " Bilateral interstitial pneumonia Calcified granuloma of lung CHF (congestive heart failure) Chronic back pain Chronic kidney disease, stage V CKD (chronic kidney disease) COPD (chronic obstructive pulmonary disease) Deep vein thrombosis L LEG Diabetes mellitus, type 2 Dyspnea Elevated troponin Fibromyalgia GERD (gastroesophageal reflux disease) Glaucoma BILT EYES Hypercalcemia Hyperglycemia due to diabetes mellitus Hypertensive urgency Parapneumonic effusion Pleural effusion on left Pleural effusion, right Pneumonia, organism unspecified (02/05/12) Rheumatoid arthritis Secondary pulmonary hypertension Spinal stenosis Stroke 07/2017--DIFFICULTY WALKING Trigeminal neuralgia Ulcerative colitis Vitamin D deficiency Volume overload Surgical History H/O bilateral cataract extraction H/O ileostomy H/O right inguinal hernia repair History of appendectomy History of bowel resection [place] [facility] [place] of breast biopsy LEFT MALIGNANT X2 History of colonoscopy History of esophagogastroduodenoscopy (EGD) History of gastric surgery 2012---[facility] ON STOMACH WALL History of lumpectomy of left breast X2 2005 WITH LYMPH NODE REMOVAL, 2012 History of tooth extraction ALL TEETH Family History Brother Family history of diabetes mellitus 2 BROTHERS Mother Family hx of colon cancer Father Family hx of colon cancer Social History Smoking Status: Former smoker Tobacco Type: Cigarettes Smoking End Date: 29 years ago; Second Hand Exposure: Yes; Hx Alcohol Use: No Hx Substance Use: No Preferred Language: Romanian Communication Ability: Effective Visual Impairment: Limited Hearing Ability: Hard of Hearing Supervisor Felling Bucking Required: No Beliefs That Will Affect Care: None marital status: Current Living Situation: Spouse Current Living Situation Comment: Lives with current occupational status: retired How many Children do You have: 2 How many Children do You have Comment: Daughters Leidy and Sonia are both local and able to assist with care as needed. Feels Safe at Home: Yes Safety Concerns: Feels Safe At This Time Diet Comment: stated she tries, but isn't always good about her diet during the past year weight has: decreased > 10 lbs Assistive Devices: Denture - Upper, Denture - Lower, Glasses and Walker Review of Systems Review of Systems: Please refer to admission H&P. No additions or deletions Results & Data Results & Data ([facility]) Vital Signs (Past 12 Hours) Vital Signs Temp Pulse Pulse Resp BP Pulse Ox Pulse Ox 07/01/20 11:39 95 07/01/20 11:35 36.5 C 56 L 18 130/75 98 07/01/20 08:00 36.4 C L 66 18 131/62 100 07/01/20 07:51 67 07/01/20 03:16 36.4 C L 65 18 99 07/01/20 02:03 78 Laboratory Results 06/30/20 17:15 07/01/20 08:[address] of the chest was independently reviewed and compared to prior imaging from April. The loculated effusions appear essentially unchanged from prior imaging studies. Vascular prominence is again noted. PG Care Time/CCT Total # of Minutes Spent Total Time Spent with Patient: Total time spent is greater than 50% in coordination of care (as documented) at patient's floor/unit and/or counseling patient: Coding Level of Care Code 06575 Initial Inpt Care Lvl 2 Diagnoses Loculated pleural effusion J90 CHF (congestive heart failure) I50.9 Pulmonary edema J81.1 Aspiration pneumonia J69.0 Aspiration pneumonia type: unspecified Laterality: unspecified laterality Lung location: unspecified part of lung
[2020-07-01] MEDS: ACETAMINOPHEN 325 MG TAB PO PRN ×2 (13:56→22:47)
[2020-07-01] MEDS: BUMETANIDE 1 MG TAB PO SCH (17:33)
[2020-07-01] MEDS: ANASTROZOLE 1 MG TAB PO SCH (20:15)
[2020-07-01] MEDS: ASPIRIN 81 MG ECTAB PO SCH (20:15)
[2020-07-01] MEDS: MONTELUKAST SODIUM 10 MG TABLET PO SCH (20:19)
[2020-07-02] MEDS: HEPARIN 100 UNIT/ML 5ML FLUSH FLUSH PRN (06:33)
[2020-07-02 07:19] LABS: Basophils # (auto) 0.02 K/uL (0-0.2); Basophils % (auto) 0.2 %; Eosinophils # (auto) 0.19 K/uL (0-0.5); Hematocrit (blood only) 35.2 % (37-47); Hemoglobin 11.2 g/dL (12.0-16.0); Immature Granulocytes # (auto) 0.03 K/uL (0.00-0.02); Immature Granulocytes % (auto) 0.3 %; Lymphocytes # (auto) 1.45 K/uL (1.2-3.4); Lymphocytes % (auto) 15.4 %; Mean Corpuscular Hemoglobin 30.5 pg (25-34); Mean Corpuscular Hgb Conc 31.8 g/dL (32-36); Mean Corpuscular Volume 95.9 fL (80-100); Mean Platelet Volume 11.7 fL (7.4-10.4); Monocytes # (auto) 1.02 K/uL (0.11-0.59); Monocytes % (auto) 10.9 %; Neutrophils # (auto) 6.68 K/uL (1.4-6.5); Neutrophils % (auto) 71.2 %; Platelet Count 146 K/uL (130-400); RDW Coefficient of Variation 14.2 % (11.5-14.5); RDW Standard Deviation 49.4 fL (36.4-46.3); Red Blood Count 3.67 M/uL (4.2-5.4); White Blood Count 9.39 K/uL (4.8-10.8)
[2020-07-02 07:47] LABS: BUN Creatinine Ratio 14.1 (10-20); Calcium 8.5 mg/dl (8.5-10.1); Creatinine Clr Calc Pharmacy 10.8 ml/min; Est GFR (African American) 10.9; Est GFR (Non-African American) 9.4; Potassium 3.5 mmol/L (3.5-5.1)
[2020-07-02] MEDS: SODIUM BICARBONATE 650 MG TAB PO SCH ×2 (08:29→20:46)
[2020-07-02] MEDS: PANTOprazole 40 MG TAB PO SCH (08:29)
[2020-07-02] MEDS: buPROPion SR 100 MG TABCR PO SCH ×2 (08:29→16:36)
[2020-07-02] MEDS: FERROUS SULFATE 325 MG TAB PO SCH ×2 (08:29→20:45)
[2020-07-02] MEDS: guaiFENesin 600 MG TABCR PO SCH ×2 (08:29→20:45)
[2020-07-02] MEDS: BRIMONIDINE TARTRATE 0.2% 5ML OPB SCH ×2 (08:30→20:47)
[2020-07-02] MEDS: METOPROLOL TARTRATE 25 MG TAB PO SCH ×2 (08:30→20:46)
[2020-07-02] MEDS: BUMETANIDE 1 MG TAB PO SCH ×2 (08:30→16:36)
[2020-07-02] MEDS: CEROVITE ADV FORMULA TAB PO SCH (08:30)
[2020-07-02] MEDS: predniSONE 5 MG TAB PO SCH (08:30)
[2020-07-02] MEDS: FLUTICASONE/VILANTEROL 100/25MCG 14 PUFFS/INHALER INH SCH (08:31)
[2020-07-02] MEDS: DORZOLAMIDE HCL 2% OPH SOLN 10 ML BTL OPR SCH ×2 (08:31→20:47)
[2020-07-02] MEDS: UMECLIDINIUM/VILANTEROL 62.5/25MCG 7 PUFFS/INHALER INH SCH (08:31)
[2020-07-02] MEDS: HEPARIN SOD 5,000 UNIT/0.5 ML VIAL SQ SCH ×2 (08:32→20:47)
[2020-07-02] MEDS: INSULIN ASPART 100 UNITS/ML 3 ML PEN SC SCH ×4 (08:32→20:51)
--- NOTE | 2020-07-02 09:10 | Electrocardiogram Report ---
Test Reason : Blood Pressure : / mmHG Vent. Rate : 074 BPM Atrial Rate : 043 BPM P-R Int : 000 ms QRS Dur : 098 ms QT Int : 398 ms P-R-T Axes : 000 -11 173 degrees QTc Int : 441 ms Atrial fibrillation Left ventricular hypertrophy with repolarization abnormality Abnormal ECG When compared with ECG of 30-Jun-2020 16:23; Atrial fibrillation now present Confirmed by Martín Ordoñez ([id number]) on 07/02/2020 9:09:52 AM Referred By: REFERRED SELF Confirmed By:Martín Ordoñez
--- NOTE | 2020-07-02 09:47 | Medical Student Progress Note ---
Date of Service July 02, 2020 Assessment & Plan (1) Dyspnea: 79 yo F PMHx of CKD Stage 5 not on HD, Vit D deficiency, Hx lung nodule, Hx of breast cancer, anemia, CHF, COPD, glaucoma, depression, CVA, protein S deficiency, DVT, GERD, hyperlipidemia, RA, ulcerative colitis w/colostomy bag, DM2, HTN admitted for aspiration pneumonia, chest pain, SOB. CHF with reduced EF: -Presenting complaint of SOB since last admission, but worsening since discharge. Has not been hypoxic, however. -XR shows moderate loculated left pleural effusion, as well as unchanged left lung base opacity suggestive of atelectasis versus pneumonia. -Echocardiogram on this admission shows reduced LVEF at 30-35% with grade II diastolic dysfunction. -Continue Bumex 1mg BID per nephrology consult, monitor intake and output. She remains net positive. -Low sodium diet. Discussed detrimental effects of patient's current sodium intake on her success with fluid balance at home. -Continuous cardiac monitoring given chest pain, SOB, diuretic therapy. -Troponin x3 negative. EKG without ST/T wave changes since last admission. -Obtain daily weights. Weights stable since admission. Dyspnea: -Symptoms not consistent with COPD exacerbation. Continue home Anoro Ellipta, S ymbicort, Singulair, prednisone. Albuterol as needed for SOB/wheezing. -Pulmonology consult placed. They believe this is fluid overload. They do not believe a thoracentesis is indicated. -Procalcitonin was 0.17, making an aspiration pneumonia less likely. Cefepime/Flagyl was discontinued. Restart antibiotics if she develops fever, productive cough, or significant leukocytosis. -Blood cultures show no growth. -Nocturnal pulse ox to evaluate for MORGAN show mean SpO2: 95%; Low SpO2: 74%; high SpO2: 99%. -Patient in general has low reserve due to COPD, chronic fluid overload, age, deconditioning, ambulatory dysfunction. PT/OT ordered to assist with ambulatory dysfunction and general deconditioning. -Patient will need 2 step on discharge if requiring oxygen therapy in ordered to determine if need exists for home O2. Currently does not have O2 at home. Atrial Fibrillation: -Rate controlled with metoprolol. -Begin anticoagulation with Warfarin 5mg PO daily. Not a good candidate for Factor Xa inhibitor given poor kidney function. -Check INR in 3-5 days. CKD stage 5: -Creatinine (4.14) and BUN (58). Values continue to rise since admission. -Monitor daily with BMP. -Nephrology consult placed to clarify home diuretic regimen as patient takes differing doses based on her home symptoms. -Patient refuses hemodialysis and understands risks associated with refusal of dialysis. -Dose medications for GFR less than 10 -JESSICA as needed for hemoglobin less than 11 -Continue home sodium bicarb tablets. -Continue Bumex 1mg BID. Hx CVA: -Continue aspirin, beta tammy. -No neurologic deficits this admission. DM2: -Last A1c 6.0%; not on medications in outpatient setting. -BSG qACHS with SSI. Chronic pain, insomnia, depression: -Continue home R[place]con as needed for pain. -Melatonin qHS for sleep. -Continue home bupropion for depression. Code Status: FULL CODE FEN: Heart healthy, DM2, low sodium, renal diet DVT ppx: Heparin 5000u SQ BID Dispo: Med/Surg with Telemetry Dyspnea type: unspecified Qualified Code(s): R06.00 - Dyspnea, unspecified (2) Volume overload: Hypervolemia type: other Qualified Code(s): E87.79 - Other fluid overload (3) Chronic kidney disease, stage V: (4) Anemia: (5) Loculated pleural effusion: (6) Atrial fibrillation: Admission and Anticipated Discharge Date Admission Date: June 30, 2020 Supervising Attestation Medical Student Supervision Note: I was personally present during medical student patient encounter and independently interviewed and examined the patient and verified the delatorre history and physical, reviewed labs and image studies, discussed the case with Ben Ascencio and agree with the findings and care plan. Acute HFrEF - New decrease in EF. likely contributing. diuresing well with current diuretic - home dose is 60mgs bid. will increase IV dose accordingly. follow I and O and daily weight. Severe right ventricle dilation - ? sec to valvular heart ds and ? sec to restrictive lung ds from multiple thoracic vertebral compression fracture. Cirrhosis noted on Chest CT - with mild hiro-hepatic cirrhosis. likely sec to STEWART. follow Subjective Pt is alert and sitting up in her chair. Alert and oriented. Says that her chest pain and SOB has improved since yesterday. Feels okay without the nasal canula for oxygen. She notes that she gets short of breath when she sits up and is moving around even if it is just in bed, although better than yesterday. She denies palpitations with this, and reports feeling well otherwise. Overnight she had an event of atrial fibrillation, with some chest discomfort. She says this has happened once before. She did have a concern that she sometimes wakes up out of breath. has reported some snoring in the past. Denies any chills, night sweats, nausea or vomiting. Review of Systems Respiratory: + dyspnea (Without hypoxia); no cough Cardiovascular: + chest pain, + dyspnea on exertion and + edema (Chronic); no palpitations Physical Exam Constitutional: WD/WN, vitals as above no acute distress Eyes: PERRL, conjunctivae normal, anicteric sclerae ENMT: external ear and nose normal, oropharynx normal Ears: no hearing impairment Neck: normal visual inspection Respiratory: + labored breathing and + audible wheezes; no respiratory distress and no cough Auscultation: + diminished lung sounds and + rales Cardiovascular: Rate/Rhythm: regular rate and regular rhythm Extremities: + edema (edema unchagned from yesterday.) Gastrointestinal (Abdomen): normal bowel sounds, soft, nontender, no hepatosplenomegaly (normal given the patient's ileostomy.) Inspection/Auscultation: normal bowel sounds Percussion/Palpation: abdomen soft; abdomen nontender, no guarding and abdomen not rigid Musculoskeletal: no cyanosis or clubbing, extremities motor strength 5/5 Extremities: extremities normal to inspection Gait: normal gait Skin: no rashes, warm and dry Neurologic: awake; no focal motor deficits and not confused Psychiatric: A+Ox3, euthymic affect Results & Data ([facility] [place]) Vital Signs (Past 12 Hours) Vital Signs Temp Pulse Pulse Resp BP Pulse Ox 07/02/20 07:22 36.4 C L 74 18 146/78 H 93 07/02/20 03:00 36.4 C L 80 18 118/60 93 07/01/20 22:51 36.7 C 83 18 101/50 L 93 07/01/20 22:43 79
[2020-07-02] MEDS: HYDROCODONE/ACETAMOPHEN 5/325MG TAB PO PRN ×2 (10:02→18:35)
--- NOTE | 2020-07-02 10:25 | Nephrology Progress Note ---
Date of Service July 02, 2020 Assessment & Plan (1) Chronic kidney disease, stage V: Stage 5 CKD secondary to microvascular disease, baseline creatinine 3.5- 3.7 at low-grade proteinuria. Admitted with chest pain/epigastric pain, EKG unremarkable. Found to be volume overloaded with loculated left pleural effusion and pulmonary congestion. Was on low-dose diuretics at home which she has been taking infrequently. Renal function slightly worsened with metabolic acidosis. Volume status imp roved. --continue on Bumex 1 mg twice a day, aim for net negative, monitor intake and output. --increase sodium bicarbonate to 650 mg twice a day --dose medications for GFR less than 10 --JESSICA as needed for hemoglobin less than 11 --as renal function worsening with underlying advanced CKD, echo showing decreased EF with grade 2 diastolic dysfunction and patient's decision to continue with conservative management of CKD without considering renal replacement therapy, would recommend palliative care involvement for possible hospice care. Will follow. (2) Anemia: (3) Volume overload: (4) Loculated pleural effusion: Admission and Anticipated Discharge Date Admission Date: June 30, 2020 Subjective Florencia has been otherwise feeling well, denies any shortness of breath, chest pain resolved. Voiding normally although unmeasured urine output. Creatinine slightly worsened to 4.1, has metabolic acidosis. Blood pressure reasonably well controlled. Review of Systems Review of Systems: All systems reviewed & are unremarkable except as noted in Subjective Physical Exam Constitutional: WD/WN, vitals as above no acute distress Neck: normal visual inspection Respiratory: normal respiratory effort; no respiratory distress and no cough Auscultation: + diminished lung sounds Cardiovascular: RRR, no murmur, no edema Skin: no rashes, warm and dry Neurologic: awake; no focal motor deficits and not confused Psychiatric: A+Ox3, euthymic affect Results & Data ([facility]) Vital Signs (Past 12 Hours) Vital Signs Temp Pulse Pulse Resp BP Pulse Ox 07/02/20 07:22 36.4 C L 74 18 146/78 H 93 07/02/20 03:00 36.4 C L 80 18 118/60 93 07/01/20 22:51 36.7 C 83 18 101/50 L 93 07/01/20 22:43 79 PG Care Time/CCT Total # of Minutes Spent Total Time Spent with Patient: Total time spent is greater than 50% in coordination of care (as documented) at patient's floor/unit and/or counseling patient: Coding Level of Care Code 76164 Subseq Hosp Care Lvl 3 Diagnoses Chronic kidney disease, stage V N18.5 Anemia D64.9 Volume overload E87.79 Hypervolemia type: other Loculated pleural effusion J90 (1) Volume overload Hypervolemia type: other Qualified Code(s): E87.79 - Other fluid overload
[2020-07-02] MEDS: WARFARIN SOD 5 MG TAB PO SCH (15:51)
--- NOTE | 2020-07-02 16:24 | Palliative Care Consultation ---
Date of Consultation July 02, 2020 Assessment & Plan (1) Palliative care encounter: I met with Florencia at bedside. She lives at home with her who she says has memory problems. They have good support from their daughters who have been helping with housekeeping and meals. They are considering meals on wheels. She confirms that she does not want to start dialysis treatments. She understands the balance between kidney failure and heart failure and recognizes that this will lead to her dying time. She would like to be at home for that. Her wish would be to remain at home and focus on having the best quality of time until her . We discussed hospice care and the support available. She is familiar with hospice from her mother's . She initially was concerned about whether she was ready for hospice. We discussed benefits available and that this would provide the best support to allow her to remain at home. She would like to consider this and would like to have a meeting with her daughters to discuss further. I tried several times to reach her daughter, Leidy, to arrange this but was not successful. Palliative care will follow. Discussed with Dr. Solano. (2) Pulmonary edema: (3) CHF (congestive heart failure): (4) Atrial fibrillation: (5) Chronic kidney disease, stage V: History of Present Illness Reason for Consultation: goals of care Requesting Physician: Dr. Mahogany Lopes Attending Physician: Kimberly Solano MD History of Present Illness 80 yo lady with CKD5 and heart failure who was recently admitted with partial small bowel obstruction. She had increased shortness of breath at home and was readmitted and found to have loculated pleural effusion. She was not a candidate for thoracentesis but has had some symptomatic response to increased diuretics. She has EF of 30-35% and elevated right ventricular pressure on ech ocardiogram. She has also had progression of renal failure with creatinine increased to 4.14 with GFR of 9. She has declined dialysis and we have been consulted to assist with goals of care. Allergies Allergy/AdvReac Type Severity Reaction Status Date / Time bee venom protein (honey bee) Allergy Severe ANAPHYLAXIS Verified 06/30/20 17:51 cefaclor Allergy Severe stiff and Verified 06/30/20 17:51 sore muscles-PT DENIES lisinopril Allergy Severe tongue Verified 06/30/20 17:51 swelling diltiazem Allergy Intermediate rash Verified 06/30/20 17:51 Penicillins Allergy Mild RASH Verified 06/30/20 17:51 tetracycline Allergy Mild UNK-PT Verified 06/30/20 17:51 DENIES amoxicillin Allergy Unknown RASH Verified 06/30/20 17:51 cefuroxime Allergy Unknown TAST Verified 06/30/20 17:51 clavulanic acid Allergy Unknown ITCHING Verified 06/30/20 17:51 levofloxacin Allergy Unknown NAUSEA, Verified 06/30/20 17:51 DIZZINESS baclofen AdvReac Severe Severe Verified 06/30/20 17:51 sedation alendronate sodium AdvReac Intermediate FELT SICK Verified 06/30/20 17:51 ciprofloxacin AdvReac Intermediate LEGS ARMS Verified 06/30/20 17:51 STIFF, PAINFUL metformin AdvReac Intermediate CAUSED Verified 06/30/20 17:51 BACK [employer] LACTIC ACID LEVELS tramadol AdvReac Intermediate DIZZINESS Verified 06/30/20 17:51 adhesive AdvReac Mild redness Verified 06/30/20 17:51 mercaptopurine AdvReac Mild MADE HER Verified 06/30/20 17:51 VERY ILL olmesartan AdvReac Mild HEADACHE Verified 06/30/20 17:51 Sulfa (Sulfonamide AdvReac Mild CAUSED Verified 06/30/20 17:51 Antibiotics) DIZZINESS sulfamethoxazole AdvReac Mild CAUSED Verified 06/30/20 17:51 DIZZINESS trimethoprim AdvReac Mild BACTRIM Verified 06/30/20 17:51 CAUSED DIZZINESS aspirin AdvReac Unknown CAUSES Verified 06/30/20 17:51 BRUISING perflutren [From Definity] AdvReac Back Pain Verified 07/01/20 08:38 Home Medications Medication Instructions Recorded Confirmed Type aspirin [Aspirin Low Dose] 81 mg PO QPM 11/22/17 06/30/20 History multivitamin with minerals 1 tab PO QAM 11/22/17 06/30/20 History pantoprazole 40 mg PO QAM 11/22/17 06/30/20 History prednisone 5 mg PO QAM 11/22/17 06/30/20 History brimonidine 1 drp OPB BID 06/22/18 06/30/20 History dorzolamide 1 drp OPR BID 06/22/18 06/30/20 History albuterol sulfate 90 mcg/actuation 2 - 4 puff INHALATION QID PRN #3 02/15/19 06/30/20 Rx aerosol inhaler inhaler acetaminophen [Tylenol Extra 500 mg PO Q6H PRN 08/25/19 06/30/20 History Strength] Desenex 1 applic EXT PRN PRN #43 gm 08/31/19 06/30/20 Rx diclofenac sodium [Voltaren] 2 g EXT QID PRN #100 gm 08/31/19 06/30/20 Rx sodium bicarbonate 650 mg tablet 650 mg PO DAILY #60 tab 01/12/20 06/30/20 Rx nystatin [Nystop] 1 applic EXT Q12 PRN 03/01/20 06/30/20 History bupropion HCl 200 mg PO BID 04/29/20 06/30/20 History hydrocodone-acetaminophen 1 tab PO DIRECTED PRN 04/29/20 06/30/20 History melatonin 6 mg PO HS 04/29/20 06/30/20 History Anoro Ellipta 1 puff INHALATION DAILY #0 ea 05/07/20 06/30/20 Rx anastrozole 1 mg PO QPM #0 tab 05/07/20 06/30/20 Rx ferrous sulfate 325 mg PO BID #0 tab 05/07/20 06/30/20 Rx guaifenesin [Mucinex] 600 mg PO Q12 #0 tab 05/07/20 06/30/20 Rx metoprolol tartrate 25 mg PO BID #0 tab 05/07/20 06/30/20 Rx montelukast [Singulair] 10 mg PO HS #0 tab 05/07/20 06/30/20 Rx zafirlukast 20 mg tablet 20 mg PO Q12H #180 tab 06/17/20 06/30/20 Rx bumetanide 1 mg tablet 1 mg PO DAILY tab 06/24/20 06/30/20 History Patient History Medical History Acute osteomyelitis (06/05/01) "MRSA of the thoracic spine " On 02/05/12 10:49 Wilfredo Melendez wrote "MRSA of the thoracic spine " Bilateral interstitial pneumonia Calcified granuloma of lung CHF (congestive heart failure) Chronic back pain Chronic kidney disease, stage V CKD (chronic kidney disease) COPD (chronic obstructive pulmonary disease) Deep vein thrombosis L LEG Diabetes mellitus, type 2 Dyspnea Elevated troponin Fibromyalgia GERD (gastroesophageal reflux disease) Glaucoma BILT EYES Hypercalcemia Hyperglycemia due to diabetes mellitus Hypertensive urgency Parapneumonic effusion Pleural effusion on left Pleural effusion, right Pneumonia, organism unspecified (02/05/12) Rheumatoid arthritis Secondary pulmonary hypertension Spinal stenosis Stroke 07/2017--DIFFICULTY WALKING Trigeminal neuralgia Ulcerative colitis Vitamin D deficiency Volume overload Surgical History H/O bilateral cataract extraction H/O ileostomy H/O right inguinal hernia repair History of appendectomy History of bowel resection 1993 WITH ILEOSTOMY @ [facility] [place] History of breast biopsy LEFT MALIGNANT X2 History of colonoscopy History of esophagogastroduodenoscopy (EGD) History of gastric surgery 2012---[facility] ON STOMACH WALL History of lumpectomy of left breast X2 2005 WITH LYMPH NODE REMOVAL, 2012 History of tooth extraction ALL TEETH Family History Brother Family history of diabetes mellitus 2 BROTHERS Mother Family hx of colon cancer Father Family hx of colon cancer Social History Smoking Status: Former smoker Tobacco Type: Cigarettes Smoking End Date: 29 years ago; Second Hand Exposure: Yes; Hx Alcohol Use: No Hx Substance Use: No Preferred Language: Serbian Communication Ability: Effective Visual Impairment: Limited Hearing Ability: Hard of Hearing Senior Oracle Database Administrator Required: No Beliefs That Will Affect Care: None marital status: Current Living Situation: Spouse Current Living Situation Comment: Lives with current occupational status: retired How many Children do You have: 2 How many Children do You have Comment: Daughters Leidy and Sonia are both local and able to assist with care as needed. Feels Safe at Home: Yes Safety Concerns: Feels Safe At This Time Diet Comment: stated she tries, but isn't always good about her diet during the past year weight has: decreased > 10 lbs Assistive Devices: Glasses and Walker Review of Systems Review of Systems: [place] Symptom Assessment Scale Pain 0/3 Dyspnea 1/3 Fatigue 1/3 Nausea 0/3 Drowsiness 0/3 Palliative Performance Score 40% Physical Exam Constitutional: + obese; no acute distress ENMT: Mouth: oral mucous membranes not dry Respiratory: normal respiratory effort; no labored breathing Cardiovascular: Extremities: no edema Gastrointestinal (Abdomen): colostomy Musculoskeletal: Extremities: + muscle atrophy Neurologic: awake; not confused Results & Data ([facility]) Vital Signs (Past 12 Hours) Vital Signs Temp Pulse Pulse Resp BP Pulse Ox 07/02/20 15:28 98.1 F 78 18 140/79 92 07/02/20 15:25 75 07/02/20 10:58 97.7 F 75 18 144/81 H 93 07/02/20 07:22 97.5 F L 74 18 146/78 H 93 PG Care Time/CCT Total # of Minutes Spent Total Time Spent with Patient: Total time spent is greater than 50% in coordination of care (as documented) at patient's floor/unit and/or counseling patient: total time spent 60 minutes with more than 50% of time spent on goals of care, hospice Coding Level of Care Code 06589 Inpt Consult Level 3 Diagnoses Palliative care encounter Z51.5 Pulmonary edema J81.1 CHF (congestive heart failure) I50.9 Atrial fibrillation I48.91 Chronic kidney disease, stage V N18.5 Time Spent (min) 60
[2020-07-02] MEDS: ANASTROZOLE 1 MG TAB PO SCH (20:45)
[2020-07-02] MEDS: ASPIRIN 81 MG ECTAB PO SCH (20:45)
[2020-07-02] MEDS: MONTELUKAST SODIUM 10 MG TABLET PO SCH (20:46)
[2020-07-02] MEDS: MELATONIN 3 MG TAB PO SCH (20:47)
[2020-07-03] MEDS: ACETAMINOPHEN 325 MG TAB PO PRN (04:25)
[2020-07-03 08:17] LABS: Basophils # (auto) 0.04 K/uL (0-0.2); Basophils % (auto) 0.3 %; Eosinophils % (auto) 2.5 %; Hematocrit (blood only) 37.4 % (37-47); Hemoglobin 12.1 g/dL (12.0-16.0); Immature Granulocytes # (auto) 0.06 K/uL (0.00-0.02); Immature Granulocytes % (auto) 0.5 %; Lymphocytes # (auto) 2.19 K/uL (1.2-3.4); Lymphocytes % (auto) 18.1 %; Mean Corpuscular Hemoglobin 31.1 pg (25-34); Mean Corpuscular Hgb Conc 32.4 g/dL (32-36); Mean Corpuscular Volume 96.1 fL (80-100); Mean Platelet Volume 11.6 fL (7.4-10.4); Monocytes # (auto) 0.85 K/uL (0.11-0.59); Neutrophils # (auto) 8.68 K/uL (1.4-6.5); Neutrophils % (auto) 71.6 %; Platelet Count 196 K/uL (130-400); RDW Coefficient of Variation 14.2 % (11.5-14.5); RDW Standard Deviation 49.4 fL (36.4-46.3); Red Blood Count 3.89 M/uL (4.2-5.4); White Blood Count 12.12 K/uL (4.8-10.8)
[2020-07-03] MEDS: HEPARIN 100 UNIT/ML 5ML FLUSH FLUSH PRN (08:30)
[2020-07-03] MEDS: INSULIN ASPART 100 UNITS/ML 3 ML PEN SC SCH ×4 (08:44→21:16)
[2020-07-03] MEDS: FLUTICASONE/VILANTEROL 100/25MCG 14 PUFFS/INHALER INH SCH (08:45)
[2020-07-03] MEDS: BRIMONIDINE TARTRATE 0.2% 5ML OPB SCH ×2 (08:45→21:12)
[2020-07-03] MEDS: UMECLIDINIUM/VILANTEROL 62.5/25MCG 7 PUFFS/INHALER INH SCH (08:46)
[2020-07-03] MEDS: predniSONE 5 MG TAB PO SCH (08:47)
[2020-07-03] MEDS: SODIUM BICARBONATE 650 MG TAB PO SCH ×2 (08:47→21:15)
[2020-07-03] MEDS: PANTOprazole 40 MG TAB PO SCH (08:47)
[2020-07-03] MEDS: DORZOLAMIDE HCL 2% OPH SOLN 10 ML BTL OPR SCH ×2 (08:47→21:12)
[2020-07-03] MEDS: HEPARIN SOD 5,000 UNIT/0.5 ML VIAL SQ SCH ×2 (08:48→21:16)
[2020-07-03] MEDS: METOPROLOL TARTRATE 25 MG TAB PO SCH ×2 (08:48→21:15)
[2020-07-03] MEDS: BUMETANIDE 1 MG TAB PO SCH ×2 (08:48→17:41)
[2020-07-03] MEDS: CEROVITE ADV FORMULA TAB PO SCH (08:48)
[2020-07-03] MEDS: FERROUS SULFATE 325 MG TAB PO SCH ×2 (08:48→21:14)
[2020-07-03] MEDS: guaiFENesin 600 MG TABCR PO SCH ×2 (08:48→21:15)
[2020-07-03] MEDS: buPROPion SR 100 MG TABCR PO SCH ×2 (08:48→17:41)
[2020-07-03 08:49] LABS: Albumin Level 2.9 gm/dl (3.4-5.0); BUN Creatinine Ratio 14.9 (10-20); Calcium 9.1 mg/dl (8.5-10.1); Creatinine Clr Calc Pharmacy 10.1 ml/min; Est GFR (Non-African American) 8.7
[2020-07-03 08:50] LABS: Phosphorus 3.8 mg/dl (2.5-4.9)
[2020-07-03] MEDS ORDERED: CALCIUM CARBONATE 500 MG CHEWABLE TAB PO ONE (09:49)
--- NOTE | 2020-07-03 10:42 | Medical Student Progress Note ---
Date of Service July 03, 2020 Assessment & Plan (1) Dyspnea: 79 yo F PMHx of CKD Stage 5 not on HD, Vit D deficiency, Hx lung nodule, Hx of breast cancer, anemia, CHF, COPD, glaucoma, depression, CVA, protein S deficiency, DVT, GERD, hyperlipidemia, RA, ulcerative colitis w/colostomy bag, DM2, HTN admitted for aspiration pneumonia, chest pain, SOB. CHF with reduced EF: -Presenting complaint of SOB since last admission, but worsening since discharge. Has not been hypoxic, however. -XR shows moderate loculated left pleural effusion, as well as unchanged left lung base opacity suggestive of atelectasis versus pneumonia. -Echocardiogram on this admission shows reduced LVEF at 30-35% with grade II diastolic dysfunction. -Continue Bumex 1mg BID per nephrology consult, monitor intake and output. Urine output has not been measured. Will restart monitoring. -Low sodium diet. Discussed detrimental effects of patient's current sodium intake on her success with fluid balance at home. -Continuous cardiac monitoring given chest pain, SOB, diuretic therapy. -Troponin x3 negative. EKG without ST/T wave changes since last admission. -Obtain daily weights. weight increased from 77.2 to 77.9 kg. Dyspnea: -Symptoms not consistent with COPD exacerbation. Continue home Anoro Ellipta, Symbicort, Singulair, prednisone. Albuterol as needed for SOB/wheezing. -Pulmonology consult placed. They believe this is fluid overload. They do not believe a thoracentesis is indicated. -Procalcitonin was 0.17, making an aspiration pneumonia less likely. Cefepime/Flagyl was discontinued. Restart antibiotics if she develops fever, productive cough, or significant leukocytosis. -Blood cultures show no growth after 48 hours. -Nocturnal pulse ox to evaluate for MORGAN show mean SpO2: 95%; Low SpO2: 74%; high SpO2: 99%. -Patient in general has low reserve due to COPD, chronic fluid overload, age, deconditioning, ambulatory dysfunction. PT/OT ordered to assist with ambulatory dysfunction and general deconditioning. -Patient will need 2 step on discharge if requiring oxygen therapy in ordered to determine if need exists for home O2. Currently does not have O2 at home. Atrial Fibrillation: -Rate controlled with metoprolol. Anticoagulate with Warfarin 5mg PO daily. Not a good candidate for Factor Xa inhibitor given poor kidney function. -Check INR in 3-5 days. CKD stage 5: -Creatinine (4.43) and BUN (66). Values continue to rise since admission. -Monitor daily with BMP. -Nephrology consult placed to optimize diuretic regimen. -Patient refuses hemodialysis and understands risks associated with refusal of dialysis. -Dose medications for GFR less than 10 -JESSICA as needed for hemoglobin less than 11 -Continue home sodium bicarb tablets. -Continue Bumex 1mg BID. Hx CVA: -Continue aspirin, beta tammy. -No neurologic deficits this admission. DM2: -Last A1c 6.0%; not on medications in outpatient setting. -BSG qACHS with SSI. Chronic pain, insomnia, depression: -Continue home [place] as needed for pain. -Melatonin qHS for sleep. -Continue home bupropion for depression. Code Status: FULL CODE FEN: Heart healthy, DM2, low sodium, renal diet DVT ppx: Heparin 5000u SQ BID Dispo: Med/Surg with Telemetry Dyspnea type: unspecified Qualified Code(s): R06.00 - Dyspnea, unspecified (2) Volume overload: Hypervolemia type: other Qualified Code(s): E87.79 - Other fluid overload (3) Chronic kidney disease, stage V: (4) Anemia: (5) Loculated pleural effusion: (6) Atrial fibrillation: Admission and Anticipated Discharge Date Admission Date: June 30, 2020 Supervising Attestation Medical Student Supervision Note: I was personally present during medical student patient encounter and independently interviewed and examined the patient and verified the delatorre history and physical, reviewed labs and image studies, discussed the case with Ben Ascecnio and agree with the findings and care plan. Acute systolic chf in setting of CKD stage 5 - Not much evidence of diuresis. no weight change. continue bumex. nephro following. discussion in process about palliative care. Subjective Pt is alert and sitting up in her chair. Alert and oriented. Says that her SOB is still improving throughout admission. She notes that she is still short of breath when walking to the bathroom, but has improved since yesterday. She denies palpitations with this, and reports feeling well otherwise. She mentioned that she wakes up out of breath and it takes her hours to calm down before she can fall asleep again. This is a something that does not happen at home. She felt comfortable with her meeting with palliative care. Discussed living options after discharge. Denies any chills, night sweats, nausea or vomiting. Review of Systems Constitutional: no fever, no chills and no sweats Ear, Nose, Mouth, Throat: no nasal congestion Respiratory: + dyspnea (Without hypoxia) and + dyspnea on exertion; no cough and no chest congestion Cardiovascular: + chest pain, + dyspnea on exertion and + edema (Chronic); no palpitations and no calf pain Gastrointestinal: no abdominal pain, no nausea and no vomiting Genitourinary: no dysuria and no hematuria Physical Exam Constitutional: WD/WN, vitals as above well developed and well nourished; no acute distress Eyes: PERRL, conjunctivae normal, anicteric sclerae ENMT: external ear and nose normal, oropharynx normal Neck: normal visual inspection Respiratory: normal respiratory effort and + audible wheezes; no respiratory distress, no retractions and no cough Auscultation: + diminished lung sounds Cardiovascular: RRR, no murmur, no edema Extremities: + edema (Edema is at her baseline. ) Gastrointestinal (Abdomen): normal bowel sounds, soft, nontender, no hepatosplenomegaly (normal given the patient's ileostomy.) Inspection/Auscultation: normal bowel sounds Percussion/Palpation: abdomen soft; abdomen nontender, no guarding and abdomen not rigid Musculoskeletal: no cyanosis or clubbing, extremities motor strength 5/5 Extremities: extremities normal to inspection Gait: normal gait Skin: no rashes, warm and dry Neurologic: awake; no focal motor deficits and not confused Psychiatric: A+Ox3, euthymic affect Results & Data ([facility]) Vital Signs (Past 12 Hours) Vital Signs Temp Pulse Pulse Resp BP Pulse Ox 07/03/20 10:12 134/72 07/03/20 07:33 36.5 C 74 18 170/85 H 96 07/03/20 03:28 36.6 C 79 18 139/85 93 07/02/20 23:11 36.6 C 77 18 136/81 96 07/02/20 23:00 75
--- NOTE | 2020-07-03 11:22 | Nephrology Progress Note ---
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 Admitted with chest pain/epigastric pain, EKG unremarkable. Found to be volume overloaded with loculated left pleural effusion and pulmonary congestion. Was on low-dose diuretics at home which she has been taking infrequently. Renal function continues to worsen with metabolic acidosis. Volume status s table. --continue on Bumex 1 mg twice a day, aim for net negative, monitor intake and output. 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 Will follow. (2) Anemia: (3) Volume overload: (4) Loculated pleural effusion: Admission and Anticipated Discharge Date Admission Date: June 30, 2020 Subjective Florencia has been otherwise feeling well, denies any shortness of breath. C/O some epigastric pain and discomfort this am. Voiding normally although unmeasured urine output. Creatinine worsened to 4.4 with metabolic acidosis. Blood pressure reasonably well controlled. Review of Systems Review of Systems: All systems reviewed & are unremarkable except as noted in Subjective Physical Exam Constitutional: WD/WN, vitals as above no acute distress Respiratory: normal respiratory effort; no respiratory distress and no cough Auscultation: + diminished lung sounds and + rales Cardiovascular: RRR, no murmur, no edema Musculoskeletal: Extremities: extremities normal to inspection Skin: no rashes, warm and dry Neurologic: awake; no focal motor deficits and not confused Psychiatric: A+Ox3, euthymic affect Results & Data ([facility]) Vital Signs (Past 12 Hours) Vital Signs Temp Pulse Resp BP Pulse Ox 07/03/20 10:12 134/72 07/03/20 07:33 36.5 C 74 18 170/85 H 96 07/03/20 03:28 36.6 C 79 18 139/85 93 PG Care Time/CCT Total # of Minutes Spent Total Time Spent with Patient: Total time spent is greater than 50% in coordin ation of care (as documented) at patient's floor/unit and/or counseling patient: Coding Level of Care Code 05068 Subseq Hosp Care Lvl 3 Diagnoses Chronic kidney disease, stage V N18.5 Anemia D64.9 Volume overload E87.79 Hypervolemia type: other Loculated pleural effusion J90 (1) Volume overload Hypervolemia type: other Qualified Code(s): E87.79 - Other fluid overload
--- NOTE | 2020-07-03 16:33 | Palliative Care Progress Note ---
Date of Service July 03, 2020 Assessment & Plan (1) Palliative care encounter: I met with Florencia's daughters and then together with Florencia. She has decided to focus on comfort directed care and does not want dialysis or hospitalization. Her daughters are concerned about being able to provide the level of care that she needs at home, particularly with her having dementia. They are both working and not able to be at home 21/09. We discussed additional caregivers at home. However, best option for the family at this point appears to be a facility with hospice to follow. They would be interested in [facility] with hospice care if feasible. Alternative would be [facility]. We discussed prognosis, support available with hospice and what to expect. Admission and Anticipated Discharge Date Admission Date: June 30, 2020 Subjective Gets short of breath with any exertion. Generally comfortable at rest. Review of Systems Review of Systems: [place] Symptom Assessment Scale Pain 0/3 Anxiety 1/3 Dyspnea 2/3 Fatigue 2/3 Drowsiness 0/3 Palliative Performance Score 40% Physical Exam Constitutional: no acute distress ENMT: Mouth: oral mucous membranes not dry Respiratory: normal respiratory effort; no labored breathing Cardiovascular: Rate/Rhythm: + irregularly irregular Musculoskeletal: Extremities: + muscle atrophy Neurologic: awake; not confused Results & Data ([facility]) Vital Signs (Past 12 Hours) Vital Signs Temp Pulse Pulse Resp BP Pulse Ox 07/03/20 15:37 97.5 F L 76 18 158/95 H 90 07/03/20 11:57 97.7 F 72 18 157/70 H 92 07/03/20 11:34 80 07/03/20 10:12 134/72 07/03/20 07:33 97.7 F 74 18 170/85 H 96 PG Care Time/CCT Total # of Minutes Spent Total Time Spent with Patient: Total time spent is greater than 50% in co ordination of care (as documented) at patient's floor/unit and/or counseling patient: total time spent 65 minutes with more than 50% of time spent on goals of care, hospice, prognosis, family education and support. Coding Level of Care Code 19562 Subseq Hosp Care Lvl 3 Diagnoses Palliative care encounter Z51.5 Time Spent (min) 65
[2020-07-03] MEDS: WARFARIN SOD 5 MG TAB PO SCH (17:22)
[2020-07-03] MEDS ORDERED: hydrOXYzine HCl 25 MG TAB PO PRN (17:38)
[2020-07-03] MEDS: FAMOTIDINE 20 MG TAB PO SCH (19:28)
[2020-07-03] MEDS ORDERED: ONDANSETRON INJ 2 MG/ML 2 ML VIAL IV STA (20:20)
[2020-07-03] MEDS: ANASTROZOLE 1 MG TAB PO SCH (21:14)
[2020-07-03] MEDS: ASPIRIN 81 MG ECTAB PO SCH (21:14)
[2020-07-03] MEDS: MELATONIN 3 MG TAB PO SCH (21:15)
[2020-07-03] MEDS: MONTELUKAST SODIUM 10 MG TABLET PO SCH (21:15)
[2020-07-04 05:36] LABS: Basophils # (auto) 0.05 K/uL (0-0.2); Basophils % (auto) 0.5 %; Eosinophils # (auto) 0.24 K/uL (0-0.5); Eosinophils % (auto) 2.3 %; Hematocrit (blood only) 36.4 % (37-47); Immature Granulocytes # (auto) 0.04 K/uL (0.00-0.02); Immature Granulocytes % (auto) 0.4 %; Lymphocytes # (auto) 1.49 K/uL (1.2-3.4); Mean Corpuscular Hemoglobin 31.3 pg (25-34); Monocytes # (auto) 0.91 K/uL (0.11-0.59); Monocytes % (auto) 8.5 %; Neutrophils # (auto) 7.93 K/uL (1.4-6.5); Neutrophils % (auto) 74.3 %; Platelet Count 181 K/uL (130-400); RDW Coefficient of Variation 14.2 % (11.5-14.5); RDW Standard Deviation 49.4 fL (36.4-46.3); Red Blood Count 3.83 M/uL (4.2-5.4); White Blood Count 10.66 K/uL (4.8-10.8)
[2020-07-04 05:51] LABS: INR 2.1 (0.9-1.1); Prothrombin Time 20.3 Seconds (9.0-12.0)
[2020-07-04 06:12] LABS: Albumin Level 2.9 gm/dl (3.4-5.0); BUN Creatinine Ratio 15.6 (10-20); Calcium 8.7 mg/dl (8.5-10.1); Creatinine Clr Calc Pharmacy 10.3 ml/min; Est GFR (African American) 10.2; Est GFR (Non-African American) 8.8; Phosphorus 4.1 mg/dl (2.5-4.9); Potassium 4.1 mmol/L (3.5-5.1)
[2020-07-04] MEDS: buPROPion SR 100 MG TABCR PO SCH ×2 (07:40→21:15)
[2020-07-04] MEDS: METOPROLOL TARTRATE 25 MG TAB PO SCH ×2 (07:40→21:16)
[2020-07-04] MEDS: FERROUS SULFATE 325 MG TAB PO SCH ×2 (07:40→21:15)
[2020-07-04] MEDS: guaiFENesin 600 MG TABCR PO SCH ×2 (07:40→21:15)
[2020-07-04] MEDS: CEROVITE ADV FORMULA TAB PO SCH (07:41)
[2020-07-04] MEDS: SODIUM BICARBONATE 650 MG TAB PO SCH ×2 (07:41→21:17)
[2020-07-04] MEDS: BUMETANIDE 1 MG TAB PO SCH (07:41)
[2020-07-04] MEDS: PANTOprazole 40 MG TAB PO SCH (07:41)
[2020-07-04] MEDS: predniSONE 5 MG TAB PO SCH (07:41)
[2020-07-04] MEDS: BRIMONIDINE TARTRATE 0.2% 5ML OPB SCH ×2 (07:42→21:17)
[2020-07-04] MEDS: DORZOLAMIDE HCL 2% OPH SOLN 10 ML BTL OPR SCH ×2 (07:42→21:17)
[2020-07-04] MEDS: FLUTICASONE/VILANTEROL 100/25MCG 14 PUFFS/INHALER INH SCH (07:42)
[2020-07-04] MEDS: UMECLIDINIUM/VILANTEROL 62.5/25MCG 7 PUFFS/INHALER INH SCH (07:42)
[2020-07-04] MEDS: INSULIN ASPART 100 UNITS/ML 3 ML PEN SC SCH ×4 (08:43→21:12)
[2020-07-04] MEDS: HYDROCODONE/ACETAMOPHEN 5/325MG TAB PO PRN (10:58)
--- NOTE | 2020-07-04 11:41 | Nephrology Progress Note ---
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 Admitted with chest pain/epigastric pain, EKG unremarkable. Found to be volume overloaded with loculated left pleural effusion and pulmonary congestion. Was on low-dose diuretics at home which she has been taking infrequently. Renal function continues to worsen with metabolic acidosis. Volume status s table. Blood pressure acceptable. --decrease Bumex to 1 mg daily, aim for net negative, monitor intake and output. 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 Will follow. (2) Anemia: (3) Volume overload: (4) Loculated pleural effusion: Admission and Anticipated Discharge Date Admission Date: June 30, 2020 Subjective Florencia has been overall feeling well, denies shortness of breath or chest pain. Appetite has been poor. Epigastric pain resolved. She reports voiding normally although on measured. Blood pressure acceptable. Creatinine staying around 4.4, persistent metabolic acidosis. Review of Systems Review of Systems: All systems reviewed & are unremarkable except as noted in Subjective Physical Exam Constitutional: + ill appearing; no acute distress Neck: normal visual inspection Respiratory: normal respiratory effort; no respiratory distress Auscultation: no crackles and no wheezes Cardiovascular: Rate/Rhythm: regular rate and regular rhythm Heart Sounds: normal S1 and normal S2 Extremities: no edema Skin: no rashes, warm and dry Neurologic: no focal motor deficits and not confused Psychiatric: A+Ox3, euthymic affect Results & Data ([facility]) Vital Signs (Past 12 Hours) Vital Signs Temp Pulse Pulse Resp BP Pulse Ox 07/04/20 11:00 36.7 C 89 18 139/74 98 07/04/20 06:57 36.5 C 83 18 144/90 H 93 07/04/20 03:08 36.4 C L 81 18 143/75 H 93 07/04/20 00:09 83 PG Care Time/CCT Total # of Minutes Spent Total Time Spent with Patient: Total time spent is greater than 50% in coordination of care (as documented) at patient's floor/unit and/or counseling patient: Coding Level of Care Code 76307 Subseq Hosp Care Lvl 3 Diagnoses Chronic kidney disease, stage V N18.5 Anemia D64.9 Volume overload E87.79 Hypervolemia type: other Loculated pleural effusion J90 (1) Volume overload Hypervolemia type: other Qualified Code(s): E87.79 - Other fluid overload
--- NOTE | 2020-07-04 12:53 | Medical Student Progress Note ---
Date of Service July 04, 2020 Assessment & Plan (1) Dyspnea: 79 yo F PMHx of CKD Stage 5 not on HD, Vit D deficiency, Hx lung nodule, Hx of breast cancer, anemia, CHF, COPD, glaucoma, depression, CVA, protein S deficiency, DVT, GERD, hyperlipidemia, RA, ulcerative colitis w/colostomy bag, DM2, HTN admitted for aspiration pneumonia, chest pain, SOB. CHF with reduced EF: -Presenting complaint of SOB since last admission, but worsening since discharge. Has not been hypoxic, however. -XR shows moderate loculated left pleural effusion, as well as unchanged left lung base opacity suggestive of atelectasis versus pneumonia. -Echocardiogram on this admission shows reduced LVEF at 30-35% with grade II diastolic dysfunction. -Continue Bumex 1mg BID per nephrology consult, monitor intake and output. Urine output has been net positive (+570). -Low sodium diet. Discussed detrimental effects of patient's current sodium intake on her success with fluid balance at home. -Continuous cardiac monitoring given chest pain, SOB, diuretic therapy. -Troponin x3 negative. EKG without ST/T wave changes since last admission. -Obtain daily weights. weight increased from 77.9 yesterday to 78.3 today. Dyspnea: -Symptoms not consistent with COPD exacerbation. Continue home Anoro Ellipta, Symbicort, Singulair, prednisone. Albuterol as needed for SOB/wheezing. -Pulmonology consult placed. They believe this is fluid overload. They do not believe a thoracentesis is indicated. -Procalcitonin was 0.17, making an aspiration pneumonia less likely. Cefepime/Flagyl was discontinued. Restart antibiotics if she develops fever, productive cough, or significant leukocytosis. -Blood cultures show no growth after 48 hours. -Nocturnal pulse ox to evaluate for MORGAN show mean SpO2: 95%; Low SpO2: 74%; high SpO2: 99%. -Patient in general has low reserve due to COPD, chronic fluid overload, age, deconditioning, ambulatory dysfunction. PT/OT ordered to assist with ambulatory dysfunction and general deconditioning. -Patient will need 2 step on discharge if requiring oxygen therapy in ordered to determine if need exists for home O2. Currently does not have O2 at home. -Patient believes her SOB is roughly what it is when she is at baseline. Atrial Fibrillation: -Rate controlled with metoprolol. -Anticoagulate with Warfarin 5mg PO daily. Not a good candidate for Factor Xa inhibitor given poor kidney function. -INR 2.1 -Discussed with pt that warfarin might be a burden given her palliative status and to consider discontinuing anticoagulation with warfarin. CKD stage 5: -Creatinine (4.36) and BUN (68). Values continue to rise since admission. -Discontinue daily BMPs given palliative status. -Nephrology consult placed to optimize diuretic regimen. -Not much evidence of diuresis. no weight change. -Patient refuses hemodialysis and understands risks associated with refusal of dialysis. -Dose medications for GFR less than 10 -JESSICA as needed for hemoglobin less than 11 -Continue home sodium bicarb tablets. -Continue Bumex 1mg BID. Will not increase as patient is at her baseline SOB/edema and given poor kidney function. Palliative Care Encounter: -Palliatve care met with the patient and her two daughters. She has decided to focus on comfort directed care and does not want dialysis or hospitalization. -The best option for the family at this point appears to be a facility with hospice to follow. They would be interested in [facility] with hospice care if feasible. Alternative would be [facility]. -Case management is working to find her a open spot at a facility. Hx CVA: -Continue aspirin, beta tammy. -No neurologic deficits this admission. DM2: -Last A1c 6.0%; not on medications in outpatient setting. -BSG qACHS with SSI. Chronic pain, insomnia, depression: -Continue home [place] as needed for pain. -Melatonin qHS for sleep. -Continue home bupropion for depression. Code Status: DNR/DNI FEN: Regular DVT ppx: Warfarin Dispo: Med/Surg with Telemetry Dyspnea type: unspecified Qualified Code(s): R06.00 - Dyspnea, unspecified (2) Volume overload: Hypervolemia type: other Qualified Code(s): E87.79 - Other fluid overload (3) Chronic kidney disease, stage V: (4) Anemia: (5) Loculated pleural effusion: (6) Atrial fibrillation: (7) Palliative care encounter: Admission and Anticipated Discharge Date Admission Date: June 30, 2020 Subjective Florencia said that she feels well, sitting up in her chair eating breaskfast in no acute distress. She says she is only short of breath when walking around (i.e. to the bathroom). She gets mild discomfort after eating in the upper abdomen, says it gets better with tums and famotidine. She says the SOB is about what it is when she is at her baseline at home. She complained of back spasms that were quite uncomfortable in the right flank region. She said her meeting with palliative care and her daughters went well and she seems comfortable with the plan and asks appropriate questions. Review of Systems Constitutional: no fever and no chills Respiratory: + dyspnea (Without hypoxia) and + dyspnea on exertion; no cough, no chest congestion and no wheezing Cardiovascular: + chest pain, + dyspnea on exertion and + edema (Chronic); no dyspnea at rest, no palpitations and no calf pain Genitourinary: no urinary frequency, no urinary hesitancy, no urinary urgency and no urinary incontinence Musculoskeletal: Muscle spasm in the right flank region. Neurologic: no localized weakness, no numbness, no paresthesia and no radiating pain Physical Exam Constitutional: WD/WN, vitals as above well developed and well nourished; no acute distress Eyes: PERRL, conjunctivae normal, anicteric sclerae ENMT: external ear and nose normal, oropharynx normal Ears: no hearing impairment Neck: normal visual inspection Respiratory: normal respiratory effort; no respiratory distress, no retractions and no cough Auscultation: + diminished lung sounds Cardiovascular: RRR, no murmur, no edema Rate/Rhythm: regular rate and regular rhythm Gastrointestinal (Abdomen): normal bowel sounds, soft, nontender, no hepatosplenomegaly (normal given the patient's ileostomy.) Inspection/Auscultation: normal bowel sounds Percussion/Palpation: abdomen soft; abdomen nontender, no guarding and abdomen not rigid Musculoskeletal: no cyanosis or clubbing, extremities motor strength 5/5 Extremities: extremities normal to inspection Gait: normal gait Skin: no rashes, warm and dry Neurologic: awake; no focal motor deficits and not confused Psychiatric: A+Ox3, euthymic affect Results & Data ([facility]) Vital Signs (Past 12 Hours) Vital Signs Temp Pulse Resp BP Pulse Ox 07/04/20 11:00 36.7 C 89 18 139/74 98 07/04/20 06:57 36.5 C 83 18 144/90 H 93 07/04/20 03:08 36.4 C L 81 18 143/75 H 93
--- NOTE | 2020-07-04 15:44 | Hospitalist Progress Note ---
Date of Service July 04, 2020 Assessment & Plan (1) CHF (congestive heart failure): 79 yo F PMHx of CKD Stage 5 not on HD, Vit D deficiency, Hx lung nodule, Hx of breast cancer, anemia, CHF, COPD, glaucoma, depression, CVA, protein S deficiency, DVT, GERD, hyperlipidemia, RA, ulcerative colitis w/colostomy bag, DM2, HTN admitted for aspiration pneumonia, chest pain, SOB. Goals of Care -Palliative care consulted: - Met with the patient and her two daughters. She has decided to focus on comfort directed care and does not want dialysis or hospitalization. -The best option for the family at this point appears to be a facility with hospice to follow. They would be interested in [facility] with hospice care if feasible. Alternative would be [facility]. -Spoke to patient's daughter today who expressed that they have not made the decision on whether they would actually want a facility and will need more information from case management -She will reach out to case management to ask for more information on the possibilities for facilities as well as the process involved CHF with reduced EF, acute exacerbation improving -Echocardiogram on this admission showed reduced LVEF at 30-35% with grade II diastolic dysfunction. -Bumex decreased to 1mg daily, per nephrology -Low sodium diet. Discussed detrimental effects of patient's current sodium intake on her success with fluid balance at home. -Continuous cardiac monitoring given chest pain, SOB, diuretic therapy. -Troponin x3 negative. EKG without ST/T wave changes since last admission. -Obtain daily weights. weight increased from 77.9 yesterday to 78.3 today. Atrial Fibrillation -Rate-controlled with metoprolol. -Warfarin had been initiated but discussed as below -Discussed with pt that warfarin might be a burden given her palliative status and to consider discontinuing anticoagulation with warfarin -Patient will take some time to consider this and let us know whether she would want to continue anticoagulation -INR at 2.1 -- therapeutic currently CKD stage 5 -Patient has consistently refused hemodialysis and understands risks -Renal function continuing to deteriorate -Discontinued daily BMPs given palliative status. -Nephrology consult: -decrease Bumex to 1 mg daily, aim for net negative, monitor intake and output. -continue sodium bicarbonate to 650 mg 2 tab twice a day Back pain - known h/o DDD. radicular pain with muscle spasm - add k pad. continue prn tylenol, hydrocodone. Epigastric Abdominal Pain - Likely caused by reflux, as it seems to be related to meals - Continue Pantoprazole 40mg PO qAM - Added famotidine 20mg PO qPM - Tums prn COPD -Continue home Anoro Ellipta, Symbicort, Singulair, prednisone. -Albuterol as needed for SOB/wheezing. Hx CVA -Continue aspirin, beta tammy. -No neurologic deficits this admission. DM2 -Last A1c 6.0%; not on medications in outpatient setting -BSG qACHS with SSI Chronic pain, insomnia, depression -Continue home [place] as needed for pain -Melatonin qHS for sleep -Continue home bupropion for depression Code Status: DNR/DNI FEN: Regular DVT ppx: Warfarin Dispo: Med/Surg (2) Atrial fibrillation: (3) Pulmonary edema: Admission and Anticipated Discharge Date Admission Date: June 30, 2020 Supervising Physician Co-Signing Physician Notes Resident Physician Supervision Note: I independently interviewed and examined the patient and verified the delatorre history and physical, reviewed labs and image studies, discussed the case with the resident Dr. Vides and agree with the findings and care plan. Subjective Patient sitting at bedside chair comfortably this morning. We had a discussion about her decision yesterday to transition to more hospice minded approach. Explained that warfarin is a medication that would require monitoring via lab draws and suggested she consider whether this is something that she will want going forward. She reports that she is only short of breath when ambulating. She also reports some discomfort in her epigastric and left upper abdominal area, especially after meals. Also, complained of right mid back pain with muscle spasm. any movement made it worse. received pain meds - helped some. Review of Systems Review of Systems: All systems reviewed & are unremarkable except as noted in Subjective Physical Exam Constitutional: WD/WN, vitals as above well developed and well nourished; no acute distress Eyes: PERRL, conjunctivae normal, anicteric sclerae ENMT: external ear and nose normal, oropharynx normal Ears: no hearing impairment Neck: normal visual inspection Respiratory: normal respiratory effort; no respiratory distress, no retractions and no cough Auscultation: + diminished lung sounds Cardiovascular: RRR, no murmur, no edema Gastrointestinal (Abdomen): normal bowel sounds, soft, nontender, no hepatosplenomegaly Musculoskeletal: Right mid back - No CVA or spinous tenderness. Skin: no rashes, warm and dry Neurologic: awake; no focal motor deficits and not confused Psychiatric: A+Ox3, euthymic affect Results & Data Results & Data ([facility]) Vital Signs (Past 12 Hours) Vital Signs Temp Pulse Pulse Resp BP Pulse Ox 07/04/20 15:13 77 07/04/20 14:00 36.5 C 72 18 142/84 H 96 07/04/20 11:00 36.7 C 89 18 139/74 98 07/04/20 06:57 36.5 C 83 18 144/90 H 93 Resident Activity Tracking Resident Involvement: Resident Care Provided Care Provided: Adult [facility] Medicine
[2020-07-04] MEDS: WARFARIN SOD 5 MG TAB PO SCH (17:33)
[2020-07-04] MEDS: ANASTROZOLE 1 MG TAB PO SCH (21:14)
[2020-07-04] MEDS: ASPIRIN 81 MG ECTAB PO SCH (21:15)
[2020-07-04] MEDS: FAMOTIDINE 20 MG TAB PO SCH (21:15)
[2020-07-04] MEDS: MONTELUKAST SODIUM 10 MG TABLET PO SCH (21:16)
[2020-07-04] MEDS: MELATONIN 3 MG TAB PO SCH (21:16)
[2020-07-05] MEDS: SODIUM BICARBONATE 650 MG TAB PO SCH ×2 (07:54→20:48)
[2020-07-05] MEDS: METOPROLOL TARTRATE 25 MG TAB PO SCH ×2 (07:55→20:47)
[2020-07-05] MEDS: guaiFENesin 600 MG TABCR PO SCH ×2 (07:55→20:46)
[2020-07-05] MEDS: buPROPion SR 100 MG TABCR PO SCH ×2 (07:56→20:40)
[2020-07-05] MEDS: CEROVITE ADV FORMULA TAB PO SCH (07:56)
[2020-07-05] MEDS: PANTOprazole 40 MG TAB PO SCH (07:56)
[2020-07-05] MEDS: BUMETANIDE 1 MG TAB PO SCH (07:56)
[2020-07-05] MEDS: FERROUS SULFATE 325 MG TAB PO SCH ×2 (07:56→20:44)
[2020-07-05] MEDS: predniSONE 5 MG TAB PO SCH (07:56)
[2020-07-05] MEDS: UMECLIDINIUM/VILANTEROL 62.5/25MCG 7 PUFFS/INHALER INH SCH (07:57)
[2020-07-05] MEDS: FLUTICASONE/VILANTEROL 100/25MCG 14 PUFFS/INHALER INH SCH (07:57)
[2020-07-05] MEDS: DORZOLAMIDE HCL 2% OPH SOLN 10 ML BTL OPR SCH ×2 (07:57→20:42)
[2020-07-05] MEDS: BRIMONIDINE TARTRATE 0.2% 5ML OPB SCH ×2 (07:58→20:42)
[2020-07-05] MEDS: INSULIN ASPART 100 UNITS/ML 3 ML PEN SC SCH ×4 (08:20→20:52)
--- NOTE | 2020-07-05 10:55 | Nephrology Progress Note ---
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 Admitted with chest pain/epigastric pain, EKG unremarkable. Found to be volume overloaded with loculated left pleural effusion and pulmonary congestion. Was on low-dose diuretics at home which she has been taking infrequently. Volume status stable. Blood pressure acceptable. Decided on comfort measures only and did not have any labs, waiting on DC. --continue Bumex to 1 mg daily, and extra dosea s needed. --continue sodium bicarbonate to 650 mg 2 tab twice a day --dose medications for GFR less than 10 --plan for DC with comfort care and no [employer]. Will sign off. (2) Anemia: (3) Volume overload: (4) Loculated pleural effusion: Admission and Anticipated Discharge Date Admission Date: June 30, 2020 Subjective Florencia has been overall feeling well, seems comfortable, denies shortness of breath or chest pain. Appetite remain poor. Epigastric pain resolved. She reports voiding normally although not measured. Blood pressure acceptable. No labs done. Review of Systems Review of Systems: All systems reviewed & are unremarkable except as noted in Subjective Physical Exam Constitutional: WD/WN, vitals as above + ill appearing; no acute distress Neck: normal visual inspection Respiratory: normal respiratory effort; no respiratory distress and no cough Auscultation: + diminished lung sounds and + rales; no crackles and no wheezes Cardiovascular: Rate/Rhythm: regular rate and regular rhythm Heart Sounds: normal S1 and normal S2 Extremities: no edema Skin: no rashes, warm and dry Neurologic: no focal motor deficits and not confused Psychiatric: A+Ox3, euthymic affect Results & Data ([facility]) Vital Signs (Past 12 Hours) Vital Signs Temp Pulse Pulse Pulse Resp BP Pulse Ox 07/05/20 07:50 36.5 C 94 H 20 136/77 91 07/05/20 07:30 36.4 C L 79 16 146/79 H 91 07/05/20 03:13 36.4 C L 86 18 122/65 93 07/04/20 23:09 36.6 C 82 18 126/96 94 07/04/20 23:00 85 PG Care Time/CCT Total # of Minutes Spent Total Time Spent with Patient: Total time spent is greater than 50% in coordination of care (as documented) at patient's floor/unit and/or counseling patient: Coding Level of Care Code 79764 Subseq Hosp Care Lvl 2 Diagnoses Chronic kidney disease, stage V N18.5 Anemia D64.9 Volume overload E87.79 Hypervolemia type: other Loculated pleural effusion J90 (1) Volume overload Hypervolemia type: other Qualified Code(s): E87.79 - Other fluid overload
--- NOTE | 2020-07-05 12:57 | Hospitalist Progress Note ---
Date of Service July 05, 2020 Assessment & Plan (1) CHF (congestive heart failure): 79 yo F PMHx of CKD Stage 5 not on HD, Vit D deficiency, Hx lung nodule, Hx of breast cancer, anemia, CHF, COPD, glaucoma, depression, CVA, protein S deficiency, DVT, GERD, hyperlipidemia, RA, ulcerative colitis w/colostomy bag, DM2, HTN admitted for aspiration pneumonia, chest pain, SOB. Goals of Care -Palliative care consulted: - Met with the patient and her two daughters. She has decided to focus on comfort directed care and does not want dialysis or hospitalization. -The best option for the family at this point appears to be a facility with hospice to follow. They would be interested in [facility] with hospice care if feasible. Alternative would be [facility]. -Spoke to patient's daughter who expressed that they have not made the decision on whether they would actually want a facility and will need more information from case management -She will reach out to case management to ask for more information on the possibilities for facilities as well as the process involved - Patient expressed today she continues to be in communication with family regarding this CHF with reduced EF, acute exacerbation improving -Echocardiogram on this admission showed reduced LVEF at 30-35% with grade II diastolic dysfunction. -Bumex decreased to 1mg daily, per nephrology -Low sodium diet. Discussed detrimental effects of patient's current sodium intake on her success with fluid balance at home. -Continuous cardiac monitoring given chest pain, SOB, diuretic therapy. -Troponin x3 negative. EKG without ST/T wave changes since last admission. -Obtain daily weights. weight increased from 77.9 yesterday to 78.3 today. Atrial Fibrillation -Rate-controlled with metoprolol. -Warfarin had been initiated but discussed as below -Discussed with pt that warfarin might be a burden given her palliative status and to consider discontinuing anticoagulation with warfarin - Patient requested warfarin to be discontinued today -- will dc CKD stage 5 -Patient has consistently refused hemodialysis and understands risks -Renal function continuing to deteriorate -Discontinued daily BMPs given palliative status. -Nephrology consult: -Continue Bumex 1 mg daily--extra doses as needed -continue sodium bicarbonate to 650 mg 2 tab twice a day Back pain - known h/o DDD. radicular pain with muscle spasm - Continue K pad. continue prn tylenol, hydrocodone. Epigastric Abdominal Pain - Likely caused by reflux, as it seems to be related to meals - Continue Pantoprazole 40mg PO qAM - Added famotidine 20mg PO qPM - Tums prn COPD -Continue home Anoro Ellipta, Symbicort, Singulair, prednisone. -Albuterol as needed for SOB/wheezing. Hx CVA -Continue aspirin, beta tammy. -No neurologic deficits this admission. DM2 -Last A1c 6.0%; not on medications in outpatient setting -BSG qACHS with SSI Chronic pain, insomnia, depression -Continue home [place] as needed for pain -Melatonin qHS for sleep -Continue home bupropion for depression Code Status: DNR/DNI FEN: Regular DVT ppx: No chemoppx Dispo: Med/Surg (2) Atrial fibrillation: (3) Pulmonary edema: Admission and Anticipated Discharge Date Admission Date: June 30, 2020 Supervising Physician Co-Signing Physician Notes Resident Physician Supervision Note: I independently interviewed and examined the patient and verified the delatorre history and physical, reviewed labs and image studies, discussed the case with the resident Dr. Vides and agree with the findings and care plan. Subjective Patient seen sitting at bedside chair today. She feels comfortable and has no concerns. We did need to discuss her goals of care. She expressed that she will continue to be in communication with her family in order to decide whether they will end up being interested in a hospice facility or would prefer another option such as home health hospice. She also expressed that she would like to discontinue anticoagulation with warfarin. Review of Systems Review of Systems: All systems reviewed & are unremarkable except as noted in Subjective Physical Exam Constitutional: WD/WN, vitals as above well developed and well nourished; no acute distress Eyes: PERRL, conjunctivae normal, anicteric sclerae ENMT: external ear and nose normal, oropharynx normal Ears: no hearing impairment Neck: normal visual inspection Respiratory: normal respiratory effort; no respiratory distress, no retractions and no cough Auscultation: + diminished lung sounds Cardiovascular: RRR, no murmur, no edema Gastrointestinal (Abdomen): normal bowel sounds, soft, nontender, no hep atosplenomegaly Musculoskeletal: Right mid back - No CVA or spinous tenderness. Skin: no rashes, warm and dry Neurologic: awake; no focal motor deficits and not confused Psychiatric: A+Ox3, euthymic affect Results & Data Results & Data ([facility]) Vital Signs (Past 12 Hours) Vital Signs Temp Pulse Pulse Resp BP Pulse Ox 07/05/20 11:25 36.4 C L 78 18 137/80 91 07/05/20 07:50 36.5 C 94 H 20 136/77 91 07/05/20 07:30 36.4 C L 79 16 146/79 H 91 07/05/20 03:13 36.4 C L 86 18 122/65 93 Resident Activity Tracking Resident Involvement: Resident Care Provided Care Provided: Adult Hospital Medicine
[2020-07-05] MEDS: DESONIDE CR 15 GM TUBE EXT PRN ×2 (13:11→21:00)
[2020-07-05] MEDS: MICONAZOLE NITRATE POWDER 43 GM EXT PRN (13:11)
[2020-07-05] MEDS: HYDROCODONE/ACETAMOPHEN 5/325MG TAB PO PRN (16:49)
[2020-07-05] MEDS: ANASTROZOLE 1 MG TAB PO SCH (20:41)
[2020-07-05] MEDS: ASPIRIN 81 MG ECTAB PO SCH (20:42)
[2020-07-05] MEDS: MELATONIN 3 MG TAB PO SCH (20:44)
[2020-07-05] MEDS: FAMOTIDINE 20 MG TAB PO SCH (20:45)
[2020-07-05] MEDS: MONTELUKAST SODIUM 10 MG TABLET PO SCH (20:47)
[2020-07-06] MEDS: HYDROCODONE/ACETAMOPHEN 5/325MG TAB PO PRN ×2 (03:15→16:41)
--- NOTE | 2020-07-06 07:59 | Hospitalist Progress Note ---
Date of Service July 06, 2020 Assessment & Plan (1) CHF (congestive heart failure): 79 yo F PMHx of CKD Stage 5 not on HD, Vit D deficiency, Hx lung nodule, Hx of breast cancer, anemia, CHF, COPD, glaucoma, depression, CVA, protein S deficiency, DVT, GERD, hyperlipidemia, RA, ulcerative colitis w/colostomy bag, DM2, HTN admitted for aspiration pneumonia, chest pain, SOB. Goals of Care: -Palliative care consulted: - Met with the patient and her two daughters. She has decided to focus on c omfort directed care and does not want dialysis or hospitalization. -The best option for the family at this point appears to be a facility with hospice to follow. They would be interested in [facility] with hospice care if feasible. Alternative would be [address] [place] [address]. -CM spoke with daughter who indicated that they have not finalized the decision and are waiting to talk with extended family -Will need to further discontinue other meds - anastrazole, iron tablet, CHF with reduced EF, acute exacerbation: -Echo -EF 30-35% with grade II diastolic dysfunction. -Low sodium diet. -Not much change in weight since admission - 77.6kg this AM -Bumex decreased to 1mg daily, per nephrology due to renal function - continue for comfort care. Atrial Fibrillation: -Rate-controlled with metoprolol -Patient requested warfarin to be discontinued - given transition to palliative/hospice CKD stage 5: -Patient has consistently refused hemodialysis and understands risks -Renal function continuing to deteriorate -Discontinued daily BMPs given palliative status. -Nephrology consult: -Continue Bumex 1 mg daily--extra doses as needed -continue sodium bicarbonate to 650 mg 2 tab twice a day Back pain: - known h/o DDD. radicular pain with muscle spasm - Continue K pad. continue prn tylenol, hydrocodone. Epigastric Abdominal Pain: - Likely caused by reflux, as it seems to be related to meals - Continue Pantoprazole 40mg PO qAM - Added famotidine 20mg PO qPM - Tums prn COPD: -Continue home Anoro Ellipta, Symbicort, Singulair, montelukast. -Albuterol as needed for SOB/wheezing. -Prednisone 5mgs daily Hx CVA: -Continue aspirin, beta tammy. -No neurologic deficits this admission. Diabetes: -Last A1c 6.0%; not on medications in outpatient setting -BSG qACHS with SSI Chronic pain, insomnia, depression: -Continue home [place] as needed for pain -Melatonin qHS for sleep -Continue home bupropion for depression Code Status: DNR/DNI FEN: Regular DVT ppx: No chemoppx (2) Atrial fibrillation: (3) Pulmonary edema: Admission and Anticipated Discharge Date Admission Date: June 30, 2020 Supervising Physician Co-Signing Physician Notes Resident Physician Supervision Note: I independently interviewed and examined the patient and verified the delatorre history and physical, reviewed labs and image studies and agree with resident Dr. Duran findings and care plan. Subjective Feeling well this morning with no current concerns or complaints. Tolerating breakfast without complication. Concerned about needing to have conversations with her regarding the decisions of she and her daughters have made regarding pursuing hospice. Daughters are discussing what the next best steps are but believe that hospice at home is not going to be possible. Review of Systems Review of Systems: All systems reviewed & are unremarkable except as noted in Subjective Physical Exam Constitutional: WD/WN, vitals as above Eyes: PERRL, conjunctivae normal, anicteric sclerae Respiratory: normal respiratory effort, lungs clear to auscultation no cough Cardiovascular: Rate/Rhythm: regular rate Vessels: normal peripheral pulses; no JVD Gastrointestinal (Abdomen): Percussion/Palpation: abdomen soft; abdomen nonte nder and no guarding Musculoskeletal: no cyanosis or clubbing, extremities motor strength 5/5 Skin: no rashes, warm and dry Neurologic: PERRL, EOMI, accommodation nl, no face palsy, no dysarthria CN's II-XI intact bilaterally and moves all extremities Psychiatric: Orientation: alert and oriented x 3 Results & Data Results & Data ([facility]) Vital Signs (Past 12 Hours) Vital Signs Temp Pulse Pulse Resp BP Pulse Ox 07/05/20 23:00 36.5 C 61 18 133/79 97 07/05/20 20:39 80 118/73 Laboratory Results 07/06/20 07/05/20 07/05/20 Range/Units 07:48 20:16 16:36 POC Glucose 117 H 180 H 223 H (70-99) mg/dl 07/05/20 Range/Units 11:36 POC Glucose 168 H (70-99) mg/dl Medications Administered Current Inpatient Medications Acetaminophen (Acetaminophen 325 Mg Tab) 650 mg PO Q4H PRN PRN Reason: Pain or Fever Stop: 07/31/20 00:24 Last Admin: 07/03/20 04:25 Dose: 650 mg Documented by: Hydrocodone Bitart/Acetaminophen (Hydrocodone/Acetamophen 5/325mg Tab) 1 tab PO Q6H PRN PRN Reason: Pain Stop: 07/15/20 00:11 Last Admin: 07/06/20 03:15 Dose: 1 tab Documented by: Albuterol (Albuterol 0.083% Nebu Soln 3 Ml Vial) 2.5 mg NEB Q6R PRN PRN Reason: Shortness Of Breath Or Wheezing Stop: 07/30/20 22:58 Anastrozole (Anastrozole 1 Mg Tab) 1 mg PO QPM JESSICA Stop: 07/31/20 20:59 Last Admin: 07/05/20 20:41 Dose: 1 mg Documented by: Aspirin (Aspirin 81 Mg Ectab) 81 mg PO QPM JESSICA Stop: 07/31/20 20:59 Last Admin: 07/05/20 20:42 Dose: 81 mg Documented by: Brimonidine Tartrate (Brimonidine Tartrate 0.2% 5ml) 1 drops OPB BID JESSICA Stop: 07/31/20 08:59 Last Admin: 07/06/20 09:09 Dose: 1 drops Documented by: Bumetanide (Bumetanide 1 Mg Tab) 1 mg PO DAILY JESSICA Stop: 08/04/20 08:59 Last Admin: 07/06/20 09:08 Dose: 1 mg Documented by: Bupropion HCl (Bupropion Sr 100 Mg Tabcr) 200 mg PO BID JESSICA Stop: 07/31/20 08:59 Last Admin: 07/06/20 09:07 Dose: 200 mg Documented by: Desonide (Desonide Cr 15 Gm Tube) 1 appln EXT BID PRN PRN Reason: Rash Stop: 08/03/20 10:29 Last Admin: 07/06/20 09:15 Dose: 1 appln Documented by: Dextrose (Dextrose 50% 50 Ml Syringe) 25 - 50 ml IV UD PRN; Protocol PRN Reason: Hypoglycemia Protocol Stop: 07/31/20 00:11 Diclofenac Sodium (Diclofenac Sod 1% Gel 100 Gm Tube) 2 gm EXT QID PRN PRN Reason: back pain Stop: 07/31/20 00:11 Last Admin: 07/05/20 17:02 Dose: 2 gm Documented by: Dorzolamide HCl (Dorzolamide Hcl 2% Oph Soln 10 Ml Btl) 1 drops OPR BID JESSICA Stop: 07/31/20 08:59 Last Admin: 07/06/20 09:09 Dose: 1 drops Documented by: Famotidine (Famotidine 20 Mg Tab) 20 mg PO QPM JESSICA Stop: 08/02/20 18:34 Last Admin: 07/05/20 20:45 Dose: 20 mg Documented by: Ferrous Sulfate (Ferrous Sulfate 325 Mg Tab) 325 mg PO BID JESSICA Stop: 07/31/20 08:59 Last Admin: 07/06/20 09:06 Dose: 325 mg Documented by: Fluticasone/Vilanterol (Fluticasone/Vilanterol 100/25mcg 14 Puffs/Inhaler) 1 puffs INH DAILY JESSICA Stop: 07/31/20 08:59 Last Admin: 07/06/20 09:09 Dose: 1 puffs Documented by: Glucagon (Glucagon For Inj 1 Mg Vial) 1 mg SQ UD PRN; Protocol PRN Reason: Hypoglycemia Protocol Stop: 07/31/20 00:11 Glucose (Glucose 10 Tabs/Tube) 4 - 8 tabs PO UD PRN; Protocol PRN Reason: Hypoglycemia Protocol Stop: 07/31/20 00:11 Glucose (Glucose 40% Gel 15 Gm Tube) 15 - 30 gm PO UD PRN; Protocol PRN Reason: Hypoglycemia Protocol Stop: 07/31/20 00:11 Guaifenesin (Guaifenesin 600 Mg Tabcr) 600 mg PO Q12 JESSICA Stop: 07/31/20 08:59 Last Admin: 07/06/20 09:10 Dose: 600 mg Documented by: Heparin Sodium (Porcine) (Heparin 100 Unit/Ml 5ml Flush) 5 ml FLUSH PRN PRN PRN Reason: Flush Stop: 07/31/20 01:24 Last Admin: 07/03/20 08:30 Dose: 5 ml Documented by: Hydroxyzine HCl (Hydroxyzine Hcl 25 Mg Tab) 25 mg PO TID PRN PRN Reason: Anxiety Stop: 08/02/20 17:37 Insulin Aspart (Insulin Aspart 100 Units/Ml 3 Ml Pen) 0 units SC ACHS JESSICA Stop: 07/31/20 07:29 Last Admin: 07/06/20 09:12 Dose: 1 units Documented by: Melatonin (Melatonin 3 Mg Tab) 6 mg PO [facility] Stop: 07/31/20 20:59 Last Admin: 07/05/20 20:44 Dose: 6 mg Documented by: Metoprolol Tartrate (Metoprolol Tartrate 25 Mg Tab) 25 mg PO BID [facility] Stop: 07/30/20 21:14 Last Admin: 07/06/20 09:08 Dose: 25 mg Documented by: Miconazole Nitrate (Miconazole Nitrate Powder 43 Gm) 1 appln EXT PRN PRN PRN Reason: Rash under skin folds Stop: 07/31/20 00:11 Last Admin: 07/06/20 09:15 Dose: 1 appln Documented by: Miscellaneous (Carbohydrates For Hypoglycemia ) 15 - 30 gm PO UD PRN PRN Reason: Hypoglycemia Protocol Stop: 07/31/20 00:11 Montelukast Sodium (Montelukast Sodium 10 Mg Tablet) 10 mg PO [facility] Stop: 07/31/20 20:59 Last Admin: 07/05/20 20:47 Dose: 10 mg Documented by: Multivitamins/Minerals (Cerovite Adv Formula Tab) 1 [facility] Stop: 07/31/20 08:59 Last Admin: 07/06/20 09:07 Dose: 1 tab Documented by: Nystatin (Nystatin Powder 15gm Btl) 1 appln EXT Q12 PRN PRN Reason: Skin Irritation Stop: 07/31/20 00:11 Pantoprazole Sodium (Pantoprazole 40 Mg Tab) 40 mg PO [facility] Stop: 07/31/20 08:59 Last Admin: 07/06/20 09:08 Dose: 40 mg Documented by: Prednisone (Prednisone 5 Mg Tab) 5 mg PO [facility] Stop: 07/31/20 08:59 Last Admin: 07/06/20 09:06 Dose: 5 mg Documented by: Sodium Bicarbonate (Sodium Bicarbonate 650 Mg Tab) 1,300 mg PO BID [facility] Stop: 08/02/20 20:59 Last Admin: 07/06/20 09:08 Dose: 1,300 mg Documented by: Umeclidinium/Vilanterol (Umeclidinium/Vilanterol 62.5/25mcg 7 Puffs/Inhaler) 1 puffs INH DAILY JESSICA Stop: 07/31/20 08:59 Last Admin: 07/06/20 09:09 Dose: 1 puffs Documented by: Resident Activity Tracking Resident Involvement: Resident Care Provided Care Provided: Adult Hospital Medicine
[2020-07-06] MEDS: predniSONE 5 MG TAB PO SCH (09:06)
[2020-07-06] MEDS: FERROUS SULFATE 325 MG TAB PO SCH ×2 (09:06→21:32)
[2020-07-06] MEDS: buPROPion SR 100 MG TABCR PO SCH ×2 (09:07→14:48)
[2020-07-06] MEDS: CEROVITE ADV FORMULA TAB PO SCH (09:07)
[2020-07-06] MEDS: PANTOprazole 40 MG TAB PO SCH (09:08)
[2020-07-06] MEDS: METOPROLOL TARTRATE 25 MG TAB PO SCH ×2 (09:08→21:41)
[2020-07-06] MEDS: BUMETANIDE 1 MG TAB PO SCH (09:08)
[2020-07-06] MEDS: SODIUM BICARBONATE 650 MG TAB PO SCH ×2 (09:08→21:37)
[2020-07-06] MEDS: DORZOLAMIDE HCL 2% OPH SOLN 10 ML BTL OPR SCH ×2 (09:09→21:30)
[2020-07-06] MEDS: FLUTICASONE/VILANTEROL 100/25MCG 14 PUFFS/INHALER INH SCH (09:09)
[2020-07-06] MEDS: BRIMONIDINE TARTRATE 0.2% 5ML OPB SCH ×2 (09:09→21:30)
[2020-07-06] MEDS: UMECLIDINIUM/VILANTEROL 62.5/25MCG 7 PUFFS/INHALER INH SCH (09:09)
[2020-07-06] MEDS: guaiFENesin 600 MG TABCR PO SCH ×2 (09:10→21:33)
[2020-07-06] MEDS: INSULIN ASPART 100 UNITS/ML 3 ML PEN SC SCH ×4 (09:12→21:43)
[2020-07-06] MEDS: MICONAZOLE NITRATE POWDER 43 GM EXT PRN (09:15)
[2020-07-06] MEDS: DESONIDE CR 15 GM TUBE EXT PRN ×2 (09:15→18:45)
[2020-07-06] MEDS ORDERED: Nursing to Pharmacy Communication SCH (14:45)
[2020-07-06] MEDS: ASPIRIN 81 MG ECTAB PO SCH (21:31)
[2020-07-06] MEDS: FAMOTIDINE 20 MG TAB PO SCH (21:32)
[2020-07-06] MEDS: MELATONIN 3 MG TAB PO SCH (21:34)
[2020-07-06] MEDS: MONTELUKAST SODIUM 10 MG TABLET PO SCH (21:36)
[2020-07-06] MEDS: ANASTROZOLE 1 MG TAB PO SCH (22:38)
[2020-07-07] MEDS: HYDROCODONE/ACETAMOPHEN 5/325MG TAB PO PRN ×2 (04:51→19:50)
[2020-07-07] MEDS: predniSONE 5 MG TAB PO SCH (08:44)
[2020-07-07] MEDS: PANTOprazole 40 MG TAB PO SCH (08:44)
[2020-07-07] MEDS: METOPROLOL TARTRATE 25 MG TAB PO SCH ×2 (08:45→19:51)
[2020-07-07] MEDS: buPROPion SR 100 MG TABCR PO SCH ×2 (08:45→13:59)
[2020-07-07] MEDS: SODIUM BICARBONATE 650 MG TAB PO SCH ×2 (08:46→19:52)
[2020-07-07] MEDS: guaiFENesin 600 MG TABCR PO SCH ×2 (08:46→19:52)
[2020-07-07] MEDS: CEROVITE ADV FORMULA TAB PO SCH (08:46)
[2020-07-07] MEDS: BUMETANIDE 1 MG TAB PO SCH (08:47)
[2020-07-07] MEDS: UMECLIDINIUM/VILANTEROL 62.5/25MCG 7 PUFFS/INHALER INH SCH (08:47)
[2020-07-07] MEDS: FLUTICASONE/VILANTEROL 100/25MCG 14 PUFFS/INHALER INH SCH (08:47)
[2020-07-07] MEDS: DORZOLAMIDE HCL 2% OPH SOLN 10 ML BTL OPR SCH ×2 (08:48→19:53)
[2020-07-07] MEDS: BRIMONIDINE TARTRATE 0.2% 5ML OPB SCH ×2 (08:48→19:53)
[2020-07-07] MEDS: FERROUS SULFATE 325 MG TAB PO SCH ×2 (08:49→19:51)
[2020-07-07] MEDS: INSULIN ASPART 100 UNITS/ML 3 ML PEN SC SCH ×4 (08:55→19:52)
[2020-07-07] MEDS ORDERED: CALCIUM CARBONATE 500 MG CHEWABLE TAB PO PRN (10:33)
--- NOTE | 2020-07-07 10:34 | Hospitalist Progress Note ---
Date of Service July 07, 2020 Assessment & Plan (1) CHF (congestive heart failure): 79 yo F PMHx of CKD Stage 5 not on HD, Vit D deficiency, Hx lung nodule, Hx of breast cancer, anemia, CHF, COPD, glaucoma, depression, CVA, protein S deficiency, DVT, GERD, hyperlipidemia, RA, ulcerative colitis w/colostomy bag, DM2, HTN admitted for aspiration pneumonia, chest pain, SOB. Goals of Care: -Palliative care consulted: - Met with the patient and her two daughters. She has decided to focus on c omfort directed care and does not want dialysis or hospitalization. -The best option for the family at this point appears to be a facility with hospice to follow. They would be interested in [facility] with hospice care if feasible. Alternative would be [address] [place] [address]. -CM spoke with daughter who indicated that they have not finalized the decision and are waiting to talk with extended family -Will need to further discontinue other meds - anastrazole, iron tablet, CHF with reduced EF, acute exacerbation: -Echo -EF 30-35% with grade II diastolic dysfunction. -Low sodium diet. -Not much change in weight since admission - 77.6kg this AM -Bumex decreased to 1mg daily, per nephrology due to renal function - continue for comfort care. Atrial Fibrillation: -Rate-controlled with metoprolol -Patient requested warfarin to be discontinued - given transition to palliative/hospice CKD stage 5: -Patient has consistently refused hemodialysis and understands risks -Renal function continuing to deteriorate -Discontinued daily BMPs given palliative status. -Nephrology consult: -Continue Bumex 1 mg daily--extra doses as needed -continue sodium bicarbonate to 650 mg 2 tab twice a day Back pain: - known h/o DDD. radicular pain with muscle spasm - Continue K pad. continue prn tylenol, hydrocodone. Epigastric Abdominal Pain: - Likely caused by reflux, as it seems to be related to meals - Continue Pantoprazole 40mg PO qAM - Added famotidine 20mg PO qPM - Tums prn COPD: -Continue home Anoro Ellipta, Symbicort, Singulair, montelukast. -Albuterol as needed for SOB/wheezing. -Prednisone 5mgs daily Hx CVA: -Continue aspirin, beta tammy. -No neurologic deficits this admission. Diabetes: -Last A1c 6.0%; not on medications in outpatient setting -BSG qACHS with SSI Rash: On back. Noted on exam. ?Chronic per nursing. follow. Chronic pain, insomnia, depression: -Continue home [place] as needed for pain -Melatonin qHS for sleep -Continue home bupropion for depression Code Status: DNR/DNI FEN: Regular DVT ppx: No chemoppx (2) Atrial fibrillation: (3) Pulmonary edema: Admission and Anticipated Discharge Date Admission Date: June 30, 2020 Supervising Physician Co-Signing Physician Notes Resident Physician Supervision Note: I independently interviewed and examined the patient and verified the delatorre history and physical, reviewed labs and image studies and agree with resident Dr. Duran findings and care plan. Subjective Feeling well this morning with no current concerns or complaints. Tolerating breakfast without complication. She had discussions with daughters and yesterday, and they are in agreement that she will not be able to receive the level of care at home as she would otherwise be able to with hospice care. Feels comfortable with the plan to go to either [facility] or wherever would be able to provide the services needed. Review of Systems Review of Systems: All systems reviewed & are unremarkable except as noted in Subjective Physical Exam Constitutional: WD/WN, vitals as above Eyes: PERRL, conjunctivae normal, anicteric sclerae Respiratory: normal respiratory effort, lungs clear to auscultation no cough Cardiovascular: Rate/Rhythm: regular rate Vessels: normal peripheral pulses; no JVD Gastrointestinal (Abdomen): Percussion/Palpation: abdomen soft; abdomen nontender and no guarding Musculoskeletal: no cyanosis or clubbing, extremities motor strength 5/5 Skin: no rashes, warm and dry Neurologic: PERRL, EOMI, accommodation nl, no face palsy, no dysarthria CN's II-XI intact bilaterally and moves all extremities Psychiatric: Orientation: alert and oriented x 3 Results & Data Results & Data ([facility]) Vital Signs (Past 12 Hours) Vital Signs Temp Pulse Resp BP Pulse Ox 07/07/20 07:00 36.4 C L 63 18 137/86 98 07/06/20 23:57 166/79 H 07/06/20 23:33 36.3 C L 77 18 165/111 H 100 Laboratory Results 05/09/21 05/08/21 05/08/21 Range/Units 07:40 20:24 16:59 POC Glucose 136 H 194 H 169 H (70-99) mg/dl 07/06/20 Range/Units 11:55 POC Glucose 182 H (70-99) mg/dl Medications Administered Current Inpatient Medications Acetaminophen (Acetaminophen 325 Mg Tab) 650 mg PO Q4H PRN PRN Reason: Pain or Fever Stop: 07/31/20 00:24 Last Admin: 07/03/20 04:25 Dose: 650 mg Documented by: Hydrocodone Bitart/Acetaminophen (Hydrocodone/Acetamophen 5/325mg Tab) 1 tab PO Q6H PRN PRN Reason: Pain Stop: 07/15/20 00:11 Last Admin: 07/07/20 04:51 Dose: 1 tab Documented by: Albuterol (Albuterol 0.083% Nebu Soln 3 Ml Vial) 2.5 mg NEB Q6R PRN PRN Reason: Shortness Of Breath Or Wheezing Stop: 07/30/20 22:58 Anastrozole (Anastrozole 1 Mg Tab) 1 mg PO QPM JESSICA Stop: 07/31/20 20:59 Last Admin: 07/06/20 22:38 Dose: 1 mg Documented by: Aspirin (Aspirin 81 Mg Ectab) 81 mg PO QPM JESSICA Stop: 07/31/20 20:59 Last Admin: 07/06/20 21:31 Dose: 81 mg Documented by: Brimonidine Tartrate (Brimonidine Tartrate 0.2% 5ml) 1 drops OPB BID JESSICA Stop: 07/31/20 08:59 Last Admin: 07/07/20 08:48 Dose: 1 drops Documented by: Bumetanide (Bumetanide 1 Mg Tab) 1 mg PO DAILY JESSICA Stop: 08/04/20 08:59 Last Admin: 07/07/20 08:47 Dose: 1 mg Documented by: Bupropion HCl (Bupropion Sr 100 Mg Tabcr) 200 mg PO BID@0800,1500 [facility] Stop: 08/05/20 14:59 Last Admin: 07/07/20 08:45 Dose: 200 mg Documented by: Calcium Carbonate (Calcium Carbonate 500 Mg Chewable Tab) 1,500 mg PO Q8H PRN PRN Reason: Indigestion Stop: 08/06/20 10:32 Desonide (Desonide Cr 15 Gm Tube) 1 appln EXT BID PRN PRN Reason: Rash Stop: 08/03/20 10:29 Last Admin: 07/06/20 18:45 Dose: 1 appln Documented by: Dextrose (Dextrose 50% 50 Ml Syringe) 25 - 50 ml IV UD PRN; Protocol PRN Reason: Hypoglycemia Protocol Stop: 07/31/20 00:11 Diclofenac Sodium (Diclofenac Sod 1% Gel 100 Gm Tube) 2 gm EXT QID PRN PRN Reason: back pain Stop: 07/31/20 00:11 Last Admin: 07/05/20 17:02 Dose: 2 gm Documented by: Dorzolamide HCl (Dorzolamide Hcl 2% Oph Soln 10 Ml Btl) 1 drops OPR BID JESSICA Stop: 07/31/20 08:59 Last Admin: 07/07/20 08:48 Dose: 1 drops Documented by: Famotidine (Famotidine 20 Mg Tab) 20 mg PO QPM JESSICA Stop: 08/02/20 18:34 Last Admin: 07/06/20 21:32 Dose: 20 mg Documented by: Ferrous Sulfate (Ferrous Sulfate 325 Mg Tab) 325 mg PO BID JESSICA Stop: 07/31/20 08:59 Last Admin: 07/07/20 08:49 Dose: 325 mg Documented by: Fluticasone/Vilanterol (Fluticasone/Vilanterol 100/25mcg 14 Puffs/Inhaler) 1 puffs INH DAILY JESSICA Stop: 07/31/20 08:59 Last Admin: 07/07/20 08:47 Dose: 1 puffs Documented by: Glucagon (Glucagon For Inj 1 Mg Vial) 1 mg SQ UD PRN; Protocol PRN Reason: Hypoglycemia Protocol Stop: 07/31/20 00:11 Glucose (Glucose 10 Tabs/Tube) 4 - 8 tabs PO UD PRN; Protocol PRN Reason: Hypoglycemia Protocol Stop: 07/31/20 00:11 Glucose (Glucose 40% Gel 15 Gm Tube) 15 - 30 gm PO UD PRN; Protocol PRN Reason: Hypoglycemia Protocol Stop: 07/31/20 00:11 Guaifenesin (Guaifenesin 600 Mg Tabcr) 600 mg PO Q12 JESSICA Stop: 07/31/20 08:59 Last Admin: 07/07/20 08:46 Dose: 600 mg Documented by: Heparin Sodium (Porcine) (Heparin 100 Unit/Ml 5ml Flush) 5 ml FLUSH PRN PRN PRN Reason: Flush Stop: 07/31/20 01:24 Last Admin: 07/03/20 08:30 Dose: 5 ml Documented by: Hydroxyzine HCl (Hydroxyzine Hcl 25 Mg Tab) 25 mg PO TID PRN PRN Reason: Anxiety Stop: 08/02/20 17:37 Insulin Aspart (Insulin Aspart 100 Units/Ml 3 Ml Pen) 0 units SC ACHS [facility] Stop: 07/31/20 07:29 Last Admin: 07/07/20 08:55 Dose: 1 units Documented by: Melatonin (Melatonin 3 Mg Tab) 6 mg PO [facility] Stop: 07/31/20 20:59 Last Admin: 07/06/20 21:34 Dose: 6 mg Documented by: Metoprolol Tartrate (Metoprolol Tartrate 25 Mg Tab) 25 mg PO BID [facility] Stop: 07/30/20 21:14 Last Admin: 07/07/20 08:45 Dose: 25 mg Documented by: Miconazole Nitrate (Miconazole Nitrate Powder 43 Gm) 1 appln EXT PRN PRN PRN Reason: Rash under skin folds Stop: 07/31/20 00:11 Last Admin: 07/06/20 09:15 Dose: 1 appln Documented by: Miscellaneous (Carbohydrates For Hypoglycemia ) 15 - 30 gm PO UD PRN PRN Reason: Hypoglycemia Protocol Stop: 07/31/20 00:11 Montelukast Sodium (Montelukast Sodium 10 Mg Tablet) 10 mg PO [facility] Stop: 07/31/20 20:59 Last Admin: 07/06/20 21:36 Dose: 10 mg Documented by: Multivitamins/Minerals (Cerovite Adv Formula Tab) [facility] Stop: 07/31/20 08:59 Last Admin: 07/07/20 08:46 Dose: 1 tab Documented by: Nystatin (Nystatin Powder 15gm Btl) 1 appln EXT Q12 PRN PRN Reason: Skin Irritation Stop: 07/31/20 00:11 Pantoprazole Sodium (Pantoprazole 40 Mg Tab) 40 mg [facility] Stop: 07/31/20 08:59 Last Admin: 07/07/20 08:44 Dose: 40 mg Documented by: Prednisone (Prednisone 5 Mg Tab) 5 mg [facility] Stop: 07/31/20 08:59 Last Admin: 07/07/20 08:44 Dose: 5 mg Documented by: Sodium Bicarbonate (Sodium Bicarbonate 650 Mg Tab) 1,300 mg PO BID [facility] Stop: 08/02/20 20:59 Last Admin: 07/07/20 08:46 Dose: 1,300 mg Documented by: Umeclidinium/Vilanterol (Umeclidinium/Vilanterol 62.5/25mcg 7 Puffs/Inhaler) 1 puffs INH DAILY JESSICA Stop: 07/31/20 08:59 Last Admin: 07/07/20 08:47 Dose: 1 puffs Documented by:
[2020-07-07] MEDS: DESONIDE CR 15 GM TUBE EXT PRN (19:48)
[2020-07-07] MEDS: FAMOTIDINE 20 MG TAB PO SCH (19:50)
[2020-07-07] MEDS: MONTELUKAST SODIUM 10 MG TABLET PO SCH (19:51)
[2020-07-07] MEDS: ASPIRIN 81 MG ECTAB PO SCH (19:51)
[2020-07-07] MEDS: MELATONIN 3 MG TAB PO SCH (19:52)
[2020-07-07] MEDS: ANASTROZOLE 1 MG TAB PO SCH (19:52)
[2020-07-08] MEDS: BUMETANIDE 1 MG TAB PO SCH (08:58)
[2020-07-08] MEDS: FERROUS SULFATE 325 MG TAB PO SCH ×2 (08:58→20:03)
[2020-07-08] MEDS: PANTOprazole 40 MG TAB PO SCH (08:58)
[2020-07-08] MEDS: buPROPion SR 100 MG TABCR PO SCH ×2 (08:58→15:07)
[2020-07-08] MEDS: predniSONE 5 MG TAB PO SCH (08:58)
[2020-07-08] MEDS: CEROVITE ADV FORMULA TAB PO SCH (08:58)
[2020-07-08] MEDS: UMECLIDINIUM/VILANTEROL 62.5/25MCG 7 PUFFS/INHALER INH SCH (08:59)
[2020-07-08] MEDS: guaiFENesin 600 MG TABCR PO SCH ×2 (08:59→20:03)
[2020-07-08] MEDS: FLUTICASONE/VILANTEROL 100/25MCG 14 PUFFS/INHALER INH SCH (08:59)
[2020-07-08] MEDS: SODIUM BICARBONATE 650 MG TAB PO SCH ×2 (08:59→20:02)
[2020-07-08] MEDS: DORZOLAMIDE HCL 2% OPH SOLN 10 ML BTL OPR SCH ×2 (09:00→20:03)
[2020-07-08] MEDS: BRIMONIDINE TARTRATE 0.2% 5ML OPB SCH ×2 (09:00→20:04)
[2020-07-08] MEDS: INSULIN ASPART 100 UNITS/ML 3 ML PEN SC SCH ×4 (09:06→20:29)
--- NOTE | 2020-07-08 10:19 | Ultrasound Report ---
US venous doppler LE RT CLINICAL HISTORY: Right leg pain COMPARISON STUDY: July 2019 FINDINGS: Grayscale, color-flow, and spectral Doppler waveform analysis was performed. There is an echogenic focus within the common femoral vein, likely representing calcification from a prior episode of DVT. This does not appear acute. No acute thrombus was visualized. The superficial f emoral popliteal vein and proximal trifurcation veins appeared patent as visualized. 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 No evidence of acute right lower extremity DVT ACT 112: Negative or not required by law. Electronically signed by: Thai Kohli M.D. 07/08/2020 10:17 AM
[2020-07-08] MEDS: METOPROLOL TARTRATE 25 MG TAB PO SCH ×2 (10:28→20:03)
--- NOTE | 2020-07-08 13:01 | Hospitalist Progress Note ---
Date of Service July 08, 2020 Assessment & Plan (1) CHF (congestive heart failure): 79 yo F PMHx of CKD Stage 5 not on HD, Vit D deficiency, Hx lung nodule, Hx of breast cancer, anemia, CHF, COPD, glaucoma, depression, CVA, protein S deficiency, DVT, GERD, hyperlipidemia, RA, ulcerative colitis w/colostomy bag, DM2, HTN admitted for aspiration pneumonia, chest pain, SOB. She will be transitioning to hospice upon her discharge from the hospital, anticipated 07/08. Goals of Care: -Palliative care consulted: - Patient and family have decided to focus on comfort directed care. She confirms she does not want dialysis or hospitalization. - Patient will be joining [facility] upon their discharge, 07/09 (anticipated) -- CM assisting with arrangement -Will need to further discontinue other meds - anastrazole, iron tablet, CHF with reduced EF, acute exacerbation: -Echo -EF 30-35% with grade II diastolic dysfunction. -Low sodium diet. -Not much change in weight since admission -Patient not complaining of any dyspnea at present -- continue scheduled Bumex -Bumex decreased to 1mg daily, per nephrology due to renal function - continue for comfort care. Atrial Fibrillation: -Rate-controlled with metoprolol -Patient requested warfarin to be discontinued - given transition to palliative/hospice CKD stage 5: -Patient has consistently refused hemodialysis and understands risks -Renal function continuing to deteriorate -Discontinued daily BMPs given palliative status. -Nephrology consult: -Continue Bumex 1 mg daily--extra doses as needed -continue sodium bicarbonate to 650 mg 2 tab twice a day -Suspect that increased somnolence is likely 2/2 uremia -- still fully A+O during questioning Back pain: - known h/o DDD. radicular pain with muscle spasm - Continue K pad. continue prn tylenol, hydrocodone - Add lidocaine patch - TENS unit p.r.n. RLE Numbness - Doppler ultrasound ordered 07/08 in the AM given new numbness, pain in RLE - Negative for acute thrombosis / DVT - Suspect this is likely 2/2 lumbar radiculopathy -- management as above Epigastric Abdominal Pain: - Likely caused by reflux, as it seems to be related to meals - Continue Pantoprazole 40mg PO qAM - Added famotidine 20mg PO qPM - Tums prn COPD: -Continue home Anoro Ellipta, Symbicort, Singulair, montelukast. -Albuterol as needed for SOB/wheezing. -Prednisone 5mgs daily Hx CVA: -Continue aspirin, beta tammy. -No neurologic deficits this admission. Diabetes: -Last A1c 6.0%; not on medications in outpatient setting -BSG qACHS with SSI Chronic pain, insomnia, depression: -Continue home [place] as needed for pain -Melatonin qHS for sleep -Continue home bupropion for depression Code Status: DNR/DNI FEN: Regular DVT ppx: No chemoppx Dispo: MS/Tele --> anticipate d/c to [facility] on 07[facility] (2) Atrial fibrillation: (3) Pulmonary edema: Admission and Anticipated Discharge Date Admission Date: June 30, 2020 Supervising Physician Co-Signing Physician Notes I personally examined the patient and verified all delatorre points of history and exam, discussed case, and agree with decision making with Dr Morrison. Feeling okay. Awaiting bed at [facility]. Plan is to go there after hospital discharge. Vitals noted, in general she is awake and alert pleasant no distress. HEENT normocephalic atraumatic mucous membranes moist. Breathing unlabored no accessory muscle use good effort. Skin shows no rashes no pallor or icterus. Neuro with no focal deficits. CHF/CKDsymptomatic/palliative care, stable for transfer to [facility] once bed available. Otherwise as above. Subjective Had mild increase in RLE pain last night with associated numbness. Nursing tried to help her get up and go to the bathroom at one point and they noted that her RLE was quite weak. At the bedside this morning, she does report numbness running down her RLE. Says it's quite bothersome. Mild pain. Says this is unusual for her. Denies any weakness, numbness elsewhere. Says this began quite suddenly. No chest pain or shortness of breath. No nausea. Hasn't eaten breakfast yet. Review of Systems Review of Systems: as per HPI Physical Exam Physical Exam: General: Tired and frail appearing 80yoF who is lying back in her hospital bed, relaxed upon my arrival. She awakens easily and is fully alert and oriented - although more somnolent compared to my previous exams with her in the past. NAD. HEENT: NCAT. No appreciable JVD. Otherwise as below Cardiac: Irregular rhythm , normal rate; S1 and S2 present with no murmurs, rubs, or gallops. Pulmonary: Good respiratory effort with symmetric expansion of the chest. No use of accessory muscles. Diminished breath sounds at the bases - intermittent rhonchi. Abdominal: Normoactive bowel sounds. Abdomen was soft, nondistended, and non- tender to palpation. No hepatomegaly or splenomegaly. Extremities: Upper and lower extremities are warm and well perfused. There is 2+ pitting edema in the RLE, 1+ in the LLE. Neuro: - Cranial Nerves: CN I, IX, and X - not assessed. II - PERRL. III/IV/ - EOMs WNL. No nystagmus. V - Facial sensation in tact in all three divisions; jaw opening WNL. VII - Patient is able to smile symmetrically and keep eyes close against resistance. IX - Patient is able to rotate head and shrug shoulders against resistance. XI - Soft palate raises equally and appropriately while saying "ah." XII - patient is able to stick out tongue and deviate from [id number] appropriately. - Motor: UE - Finger, wrist, elbow, and shoulder strength is 5/5 bilaterally. LE - Hip, knee, and ankle strength is 5/5 on LLE, 4/5 on RLE. - Sensation: UE sensation grossly in tact. Patient reports more numbness in RLE compared to LLE. - Reflexes - Biceps 2+ b/l; brachioradialis 2+ b/l; patellar 2+ b/l. - [id number]: WNL b/l. No dysmetria. Results & Data Results & Data ([facility]) Vital Signs (Past 12 Hours) Vital Signs Temp Pulse Resp BP Pulse Ox 07/08/20 06:49 36.5 C 82 18 106/63 97 Resident Activity Tracking Resident Involvement: Resident Care Provided Care Provided: Adult [facility] Medicine
[2020-07-08] MEDS: HYDROCODONE/ACETAMOPHEN 5/325MG TAB PO PRN (17:22)
[2020-07-08] MEDS: LIDOCAINE 5% 1 PATCH TD SCH (17:24)
--- NOTE | 2020-07-08 17:32 | Billing Data ---
Date of Service July 08, 2020 Coding Level of Care Code 69211 Subseq Hosp Care Lvl 2
[2020-07-08] MEDS: MELATONIN 3 MG TAB PO SCH (20:03)
[2020-07-08] MEDS: MONTELUKAST SODIUM 10 MG TABLET PO SCH (20:03)
[2020-07-08] MEDS: FAMOTIDINE 20 MG TAB PO SCH (20:03)
[2020-07-08] MEDS: ANASTROZOLE 1 MG TAB PO SCH (20:04)
[2020-07-08] MEDS: ASPIRIN 81 MG ECTAB PO SCH (20:04)
[2020-07-09] MEDS: HYDROCODONE/ACETAMOPHEN 5/325MG TAB PO PRN (05:26)
[2020-07-09] MEDS: BUMETANIDE 1 MG TAB PO SCH (07:42)
[2020-07-09] MEDS: buPROPion SR 100 MG TABCR PO SCH (07:42)
[2020-07-09] MEDS: SODIUM BICARBONATE 650 MG TAB PO SCH (07:42)
[2020-07-09] MEDS: FERROUS SULFATE 325 MG TAB PO SCH (07:42)
[2020-07-09] MEDS: METOPROLOL TARTRATE 25 MG TAB PO SCH (07:43)
[2020-07-09] MEDS: predniSONE 5 MG TAB PO SCH (07:43)
[2020-07-09] MEDS: PANTOprazole 40 MG TAB PO SCH (07:43)
[2020-07-09] MEDS: guaiFENesin 600 MG TABCR PO SCH (07:43)
[2020-07-09] MEDS: CEROVITE ADV FORMULA TAB PO SCH (07:43)
[2020-07-09] MEDS: BRIMONIDINE TARTRATE 0.2% 5ML OPB SCH (07:43)
[2020-07-09] MEDS: FLUTICASONE/VILANTEROL 100/25MCG 14 PUFFS/INHALER INH SCH (07:43)
[2020-07-09] MEDS: LIDOCAINE 5% 1 PATCH TD SCH (07:44)
[2020-07-09] MEDS: DORZOLAMIDE HCL 2% OPH SOLN 10 ML BTL OPR SCH (07:44)
[2020-07-09] MEDS: INSULIN ASPART 100 UNITS/ML 3 ML PEN SC SCH ×2 (07:45→12:01)
[2020-07-09] MEDS: UMECLIDINIUM/VILANTEROL 62.5/25MCG 7 PUFFS/INHALER INH SCH (07:46)
[2020-07-09] MEDS: HEPARIN 100 UNIT/ML 5ML FLUSH FLUSH PRN (13:47)
--- NOTE | 2020-07-09 19:29 | Discharge Summary ---
Date of Service July 09, 2020 Admission HPI Per Admitting Provider 79 yo F PMHx of CKD Stage V not on HD, Vit D deficiency, Hx lung nodule, Hx of breast cancer, anemia, CHF, COPD, glaucoma, depression, CVA, protein S deficiency, DVT, GERD, hyperlipidemia, RA, ulcerative colitis w/colostomy bag, DM2, HTN presented to ER with daughter for worsening SOB and left chest pain. Patient reports that she has had SOB since her last admission for partial SBO (discharged 06/26), and she was told she may have aspirated. Since discharge, her SOB has been getting worse, even at rest. She Also reports that this morning she started having left sided chest pain that radiated to her left shoulder and behind her neck on the left side. No associated sweating, dizziness, headache, abdominal pain, nausea, vomiting. No change in urination, or in colostomy output. In review of patient's diet, while she does not add salt to already- prepared food, she struggles with low sodium intake. For example, yesterday she had a [employer] fish sandwich for lunch, and scrapple for dinner. She also recently had Goulash prepared by her , and she is unsure how much salt he added. In the ER patient had labwork which showed mild leukocytosis, baseline kidney function, negative troponin, negative COVID 19. XR showed unchanged LLL consolidation, bilateral L>R pleural effusions with element of loculation. Patient received 40mg Lasix IV, and 2mg Bumex IV in ER. Hospitalist service was consulted for admission. Principal Diagnosis CKDV, HFrEF Discharge Exam No distress, HEENT normocephalic atraumatic mucous membranes moist. Breathing unlabored no accessory muscle use good effort. Skin shows no rashes no pallor or icterus. Neuro shows no focal deficits. Discharge Data Allergies Allergy/AdvReac Type Severity Reaction Status Date / Time bee venom protein (honey bee) Allergy Severe ANAPHYLAXIS Verified 06/30/20 17:51 cefaclor Allergy Severe stiff and Verified 06/30/20 17:51 sore muscles-PT DENIES lisinopril Allergy Severe tongue Verified 06/30/20 17:51 swelling diltiazem Allergy Intermediate rash Verified 06/30/20 17:51 Penicillins Allergy Mild RASH Verified 06/30/20 17:51 tetracycline Allergy Mild UNK-PT Verified 06/30/20 17:51 DENIES amoxicillin Allergy Unknown RASH Verified 06/30/20 17:51 cefuroxime Allergy Unknown TAST Verified 06/30/20 17:51 clavulanic acid Allergy Unknown ITCHING Verified 06/30/20 17:51 levofloxacin Allergy Unknown NAUSEA, Verified 06/30/20 17:51 DIZZINESS baclofen AdvReac Severe Severe Verified 06/30/20 17:51 sedation alendronate sodium AdvReac Intermediate FELT SICK Verified 06/30/20 17:51 ciprofloxacin AdvReac Intermediate LEGS ARMS Verified 06/30/20 17:51 STIFF, PAINFUL metformin AdvReac Intermediate CAUSED Verified 06/30/20 17:51 BACK PAIN AND INC. LACTIC ACID LEVELS tramadol AdvReac Intermediate DIZZINESS Verified 06/30/20 17:51 adhesive AdvReac Mild redness Verified 06/30/20 17:51 mercaptopurine AdvReac Mild MADE HER Verified 06/30/20 17:51 VERY ILL olmesartan AdvReac Mild HEADACHE Verified 06/30/20 17:51 Sulfa (Sulfonamide AdvReac Mild CAUSED Verified 06/30/20 17:51 Antibiotics) DIZZINESS sulfamethoxazole AdvReac Mild CAUSED Verified 06/30/20 17:51 DIZZINESS trimethoprim AdvReac Mild BACTRIM Verified 06/30/20 17:51 CAUSED DIZZINESS aspirin AdvReac Unknown CAUSES Verified 06/30/20 17:51 BRUISING perflutren [From Definity] AdvReac Back Pain Verified 07/01/20 08:38 Consultations 07/01/20 00:12 Consult Nephrology Routine Consult Pulmonology Routine 07/02/20 11:34 Consult Palliative Care Routine Ordered Studies 07/08/20 10:00 US venous doppler LE RT Stat Hospital Course (1) CHF (congestive heart failure): CHF (congestive heart failure): 79 yo F PMHx of CKD Stage 5 not on HD, Vit D deficiency, Hx lung nodule, Hx of breast cancer, anemia, CHF, COPD, glaucoma, depression, CVA, protein S deficiency, DVT, GERD, hyperlipidemia, RA, ulcerative colitis w/colostomy bag, DM2, HTN admitted for aspiration pneumonia, chest pain, SOB. She will be transitioning to hospice upon her discharge from the hospital, going to [facility] today. Goals of Care: -Palliative care consulted: - Patient and family have decided to focus on comfort directed care. She confirms she does not want dialysis or hospitalization. - Patient will be joining [facility] upon their discharge, 07/09 (anticipated) -- CM assisting with arrangement -Will further discontinue other meds - anastrazole, iron tablet, CHF with reduced EF, acute exacerbation: -Echo -EF 30-35% with grade II diastolic dysfunction. -Low sodium diet. -Not much change in weight since admission -Patient not complaining of any dyspnea at present -- continue scheduled Bumex -Bumex decreased to 1mg daily, per nephrology due to renal function - continue for comfort care. Atrial Fibrillation: -Rate-controlled with metoprolol -Patient requested warfarin to be discontinued - given transition to palliative/hospice CKD stage 5: -Patient has consistently refused hemodialysis and understands risks -Renal function continuing to deteriorate -Discontinued daily BMPs given palliative status. -Nephrology consult: -Continue Bumex 1 mg daily--extra doses as needed -continue sodium bicarbonate to 650 mg 2 tab twice a day Back pain: - known h/o DDD. radicular pain with muscle spasm - Continue K pad. continue prn tylenol, hydrocodone RLE Numbness - Doppler ultrasound ordered 07/08 in the AM given new numbness, pain in RLE - Negative for acute thrombosis / DVT - Suspect this is likely 2/2 lumbar radiculopathy -- management as above Epigastric Abdominal Pain: - Likely caused by reflux, as it seems to be related to meals - Continue Pantoprazole 40mg PO qAM - Added famotidine 20mg PO qPM - Tums prn COPD: -Continue home Anoro Ellipta, Symbicort, Singulair, montelukast. -Albuterol as needed for SOB/wheezing. -Prednisone 5mg daily Hx CVA: -Continue aspirin, beta tammy. -No neurologic deficits this admission. Diabetes: -Last A1c 6.0%; not on medications in outpatient setting Chronic pain, insomnia, depression: -Continue home [place] as needed for pain -Melatonin qHS for sleep -Continue home bupropion for depression Code Status: DNR/DNI FEN: Regular DVT ppx: No chemoppx Dispod/c to [facility] on 07/09 (2) Atrial fibrillation: (3) Pulmonary edema: Total Time Total Time Spent Total Time Spent (In Minutes): <30 Discharge Plan Discharge Items Patient Disposition: Home - Self-Care Reason For Visit: ASPIRATION PNEUMONIA, SOB, CHEST PAIN Discharge Diagnosis: CHF exacerbation Activity: Per Instructions section Non-emergency contact: Primary Care Provider Call non-emergency contact if: you have any medication questions, your symptoms worsen and your pain is not controlled Follow-up/Referrals: Se Tovar MD [Primary Care Provider] - Diet: Heart Healthy and Low Potassium (2gm) Addtl Attending Provider Instructions: You were seen at [facility] for evaluation of chest pain and shortness of breath. It is primarily thought that your symptoms were due to to multiple causes, including decreased heart function, a mild pneumonia, and exacerbation of pre-existing respiratory conditions. Your symptoms greatly resolved with medical treatment while here. After thorough discussion with you, your family, the palliative care team, and your primary care team here at the hospital, you have decided to transition out of the hospital into hospice care. As previously discussed, hospice care shifts the focus away from intensive medical treatment to maximizing comfort and quality of life. Your hospice services will help you and your family set goals and to aid in care management planning. Upon meeting with your hospice care team, we do encourage you to review your medication list and decide which medications would best promote your goals and c omfort for moving forward. It is been a pleasure caring for you here at [facility]. Pending Studies at Discharge: No Stand-Alone Forms: My [facility], Smoking Cessation Medications and DC Order Prescriptions: Continued bumetanide 1 mg tablet 1 mg PO DAILY RF: 0 albuterol sulfate [Ventolin HFA] 90 mcg/actuation HFA aerosol inhaler 2 - 4 puff INHALATION QID PRN (Reason: Shortness Of Breath Or Wheezing) Qty: 3 RF: 3 sodium bicarbonate 650 mg tablet 650 mg PO DAILY Qty: 60 RF: 11 brimonidine 0.2 % drops 1 drp OPB BID RF: 0 dorzolamide 2 % drops 1 drp OPR BID RF: 0 nystatin [Nystop] 100,000 unit/gram powder 1 applic EXT Q12 PRN (Reason: Skin Irritation) RF: 0 aspirin [Aspirin Low Dose] 81 mg Tablet,Delayed Release (Dr/Ec) 81 mg PO QPM RF: 0 multivitamin with minerals Tablet 1 tab PO QAM RF: 0 prednisone 5 mg Tablet 5 mg PO QAM RF: 0 pantoprazole 40 mg Tablet,Delayed Release (Dr/Ec) 40 mg PO QAM RF: 0 acetaminophen [Tylenol Extra Strength] 500 mg Tablet 500 mg PO Q6H PRN (Reason: Pain) RF: 0 diclofenac sodium [Voltaren] 1 % Gel 2 g EXT QID PRN (Reason: back pain) Qty: 100 RF: 0 Desenex 2 % Powder 1 applic EXT PRN PRN (Reason: Rash under skin folds) Qty: 43 RF: 0 hydrocodone-acetaminophen 5-325 mg tablet 1 tab PO DIRECTED PRN (Reason: Pain) RF: 0 melatonin 3 mg Tablet 6 mg PO HS RF: 0 bupropion HCl 200 mg tablet sustained-release 12 hr 200 mg PO BID RF: 0 anastrozole 1 mg Tablet 1 mg PO QPM Qty: 0 RF: 0 montelukast [Singulair] 10 mg Tablet 10 mg PO HS Qty: 0 RF: 0 ferrous sulfate 325 mg (65 mg iron) Tablet,Delayed Release (Dr/Ec) 325 mg PO BID Qty: 0 RF: 0 metoprolol tartrate 25 mg Tablet 25 mg PO BID Qty: 0 RF: 0 Anoro Ellipta 62.5-25 mcg/actuation Blister With Device 1 puff inhalation DAILY Qty: 0 RF: 0 guaifenesin [Mucinex] 600 mg Tablet Extended Release 12hr 600 mg PO Q12 Qty: 0 RF: 0 Discontinued zafirlukast [Accolate] 20 mg tablet 20 mg PO Q12H Qty: 180 RF: 3 Discharge Orders: Discharge Order (Routine); Ordered 07/09/20 Ordered By: Anil Morrison Admission Data Admit Date/Time: 06/30/20 22:59 Attending Provider: Anil Hernandez Admit Provider: Gabbie Pollard Primary Care Provider: Se Tovar Other Providers: Anil Hernandez ; Shant Reyes ; Meliton Torres ; Ольга Quintero ; [facility] ; Kimberly Solano Other Interventions: Discharge Summary Assessment (RN) Last Done: 07/09/20 12:15 Coding Level of Care Code D/C Day Management <30 mins Diagnoses CHF (congestive heart failure) I50.9
== END 2020-07-09 13:59 | disposition home or self-care (01) | DRG 291 ==
LOC: ED 16:10 → SUATTDRO 22:59 → 2N 22:59